=== PATIENT | female | born 1975 | race Caucasian/White ===

== ENCOUNTER 2017-06-17 10:49 | Emergency (ER) | payer MEDICAID, SELFPAY ==
[2017-06-17 12:08] VITALS: BP 163/100; PULSE 62; RESP 20; TEMP 36.6; O2SAT 95; BMI 36.6
--- NOTE | 2017-06-17 12:35 | HMH.EDUTC ---
[facility] Disposition Clinical Impression: Blepharitis of eyelid of right eye Qualifiers: Blepharitis type: unspecified type Eyelid: unspecified eyelid Qualified Code(s): H01.003 - Unspecified blepharitis right eye, unspecified eyelid Disposition: Home, Self-Care Condition on Discharge: Good Instructions: DI for Blepharitis Additional Instructions: Not bacterial. No need for antibiotics at this time and no reason to worry about going to work Wash w/ baby shampoo Cool compress several times throughout day for 15-20 minutes Do not apply medications for risk of exposure to eye monitor. Follow up for new, worsening symptoms and/or persistent redness/itching Referrals: Odin Raza [Primary Care Provider] - (as needed for new, worsening or persistent symptoms) Time of Disposition: 12:45 Medical Decision Making Vital Signs: 06/17/17 12:08 Temperature 97.9 F Temperature Source Temporal Artery Scan Pulse Rate [Right Radial] 62 Respiratory Rate 20 Blood Pressure [Right Arm] 163/100 Blood Pressure Mean [Right Arm] 121 02 Sat by Pulse Oximetry 95 Oxygen Delivery Method Room Air - Tyshawn Inquiry Pt receiving controlled substance: No [facility] HPI - General Stated complaint: irritation right eye lid - outside Time Seen by Provider: 06/17/17 12:35 Mode of Arrival: Family Vehicle Source of Information: Patient Limitations: No Limitations Description of Symptoms (Recalled from Triage Doc. by RN): pt c/o right eye itchiness and burning. HEENT Symptoms (Recalled from RN notes): Yes (right eye itchiness and burning) Resp Symptoms (Recalled from RN notes): No Skin Symptoms (Recalled from RN notes): No MS Symptoms (Recalled from RN notes): No Functional Status (Recalled from RN notes): na - History of Present Illness Provider Complaint: c/o right eyelid irritation and itching noticed today. 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 No treatment before arrival. No actual eye pain, redness, itching just the lid . No drainage or change in vision. - Related Data Home Medications Medication Instructions Recorded Confirmed Doxepin HCl [Sinequan 25mg capsule] 25 mg PO DAILY 06/17/17 06/17/17 Insulin NPH Hum/Reg Insulin Hm 65 units SQ BID 06/17/17 06/17/17 [Novolin 70-30 100 Unit/ml Vial] Lisinopril [Lisinopril 20mg Tab] 20 mg PO DAILY 06/17/17 06/17/17 lamoTRIgine [Lamotrigine] 100 mg PO DAILY 06/17/17 06/17/17 Allergies Allergy/AdvReac Type Severity Reaction Status Date / Time fish oil [FISH OIL] Allergy Mild Verified 06/17/17 11:30 POWDER IN GLOVES Allergy Unknown I-RASH Uncoded 04/14/17 14:26 - Worker's Comp Is this a Worker's Comp case?: No [facility] History I have reviewed the patient's past medical history: Yes Medical History: Reports:: Diabetes Mellitus Type 1, Hypertension Denies:: Cancer, Diabetes Mellitus Type 2, MRSA Laterality Cases: Bilateral: Carpal Tunnel Release, Other (wisdom teeth) Other Surgeries: Yes: , Other ([facility], reconstructive ankle, multiple skin graphs) Amputation: No Fractures: Yes (ankle screws) - Social History Smoking Status: Current every day smoker Tobacco Type: cigarettes Alcohol Intake: never - Psychiatric History Expresses thoughts of harming self/others: None Suicide Plan Description: No Plan ROS Obtained: Yes Systems reviewed as appropriate & no additional complaints - Constitutional Constitutional: Denies body ache, Denies chills, Denies fatigue, Denies fever(s), Denies other (recent illness) - Eyes Eyes: Reports as per HPI, Denies dry eyes, Denies photophobia - ENT Ears, Nose, Mouth, and Throat: Denies otalgia, Denies nasal congestion, Denies nasal discharge, Denies sore throat - Integumentary/Breasts Skin/Breast: Reports as per HPI - Neurologic Neurologic: Denies dizziness, Denies headache(s) Physical Exam - General General appearance: alert, in no apparent distress - Eye Eye exam:
--- NOTE | 2017-06-17 12:40 | ED_ITS ---
[facility] [place] Disposition Clinical Impression: Blepharitis of eyelid of right eye Qualifiers: Blepharitis type: unspecified type Eyelid: unspecified eyelid Qualified Code(s) : H01.003 - Unspecified blepharitis right eye, unspecified eyelid Disposition: Home, Self-Care Condition on Discharge: Good Instructions: DI for Blepharitis Additional Instructions: Not bacterial. No need for antibiotics at this time and no reason to worry about going to work Wash w/ baby shampoo Cool compress several times throughout day for 15-20 minutes Do not apply medications for risk of exposure to eye monitor. Follow up for new, worsening symptoms and/or persistent redness/itching Referrals: Odin Raza [Primary Care Provider] - (as needed for new, worsening or persistent symptoms) Time of Disposition: 12:45 Medical Decision Making Vital Signs: 06/17/17 12:08 Temperature 97.9 F Temperature Source Temporal Artery Scan Pulse Rate [Right Radial] 62 Respiratory Rate 20 Blood Pressure [Right Arm] 163/100 Blood Pressure Mean [Right Arm] 121 02 Sat by Pulse Oximetry 95 Oxygen Delivery Method Room Air - Tyshawn Inquiry Pt receiving controlled substance: No [facility] [place] HPI - General Stated complaint: irritation right eye lid - outside Time Seen by Provider: 06/17/17 12:35 Mode of Arrival: Family Vehicle Source of Information: Patient Limitations: No Limitations Description of Symptoms (Recalled from Triage Doc. by RN): pt c/o right eye itchiness and burning. HEENT Symptoms (Recalled from RN notes): Yes (right eye itchiness and burning) Resp Symptoms (Recalled from RN notes): No Skin Symptoms (Recalled from RN notes): No MS Symptoms (Recalled from RN notes): No Functional Status (Recalled from RN notes): na - History of Present Illness Provider Complaint: c/o right eyelid irritation and itching noticed today. 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 No treatment before arrival. No actual eye pain, redness, itching just the lid . No drainage or change in vision. - Related Data Home Medications Medication Instructions Recorded Confirmed Doxepin HCl [Sinequan 25mg capsule] 25 mg PO DAILY 06/17/17 06/17/17 Insulin NPH Hum/Reg Insulin Hm 65 units SQ BID 06/17/17 06/17/17 [Novolin 70-30 100 Unit/ml Vial] Lisinopril [Lisinopril 20mg Tab] 20 mg PO DAILY 06/17/17 06/17/17 lamoTRIgine [Lamotrigine] 100 mg PO DAILY 06/17/17 06/17/17 Allergies Allergy/AdvReac Type Severity Reaction Status Date / Time fish oil [FISH OIL] Allergy Mild Verified 06/17/17 11:30 POWDER IN GLOVES Allergy Unknown I-RASH Uncoded 04/14/17 14:26 - Worker's Comp Is this a Worker's Comp case?: No [facility] History I have reviewed the patient's past medical history: Yes Medical History: Reports:: Diabetes Mellitus Type 1, Hypertension Denies:: Cancer, Diabetes Mellitus Type 2, MRSA Laterality Cases: Bilateral: Carpal Tunnel Release, Other (wisdom teeth) Other Surgeries: Yes: , Other ([facility], reconstructive ankle, multiple skin graphs) Amputation: No Fractures: Yes (ankle screws) - Social History Smoking Status: Current every day smoker Tobacco Type: cigarettes Alcohol Intake: never - Psychiatric History Expresses thoughts of harming self/others: None Suicide Plan Description: No Plan ROS Obtained: Yes Systems reviewed as appropr
[2017-06-17 12:48] VITALS: BP 142/95; PULSE 79; RESP 16; TEMP 36.3; O2SAT 100
== END 2017-06-17 12:58 | disposition home or self-care (01) ==
PROVIDERS: Emergency Provider Nurse Practitioner Family; Family Provider Family Medicine; PCP Family Medicine
DX: H01.003 Unspecified blepharitis right eye, unspecified eyelid (principal); I10 Essential (primary) hypertension; E10.9 Type 1 diabetes mellitus without complications; Z79.4 Long term (current) use of insulin; F17.210 Nicotine dependence, cigarettes, uncomplicated
CPT/HCPCS: 99202

== ENCOUNTER → 2017-06-25 15:13 | Outpatient (REF) | payer MEDICAID, SELFPAY ==
[2017-06-25 18:03] LABS: Basophils # 0.1 K/mm3 (0-0.2); Basophils % 0.8 % (0.1-2.0); Eosinophils # 0.3 K/mm3 (0.0-0.4); Hematocrit 47.2 % (37.0-47.0); Hemoglobin 15.4 g/dL (12.2-16.2); Lymphocytes # 2.3 K/mm3 (0.7-4.5); Lymphocytes % 26.2 K/mm3 (10-50); Mean Corpuscular HGB Conc 32.7 g/dL (31.8-35.4); Mean Corpuscular Hemoglobin 28.8 pg (27.0-31.2); Mean Corpuscular Volume 87.9 fl (81-99); Mean Platelet Volume 11.3 fl (7.4-10.4); Monocytes # 0.4 K/mm3 (0.1-1.0); Monocytes % 4.9 % (1.7-9.3); Neutrophils # 5.6 K/mm3 (1.8-7.8); Neutrophils % 64.1 % (37.0-80.0); Platelet Count 267 K/mm3 (142-424); Red Blood Count 5.37 M/mm3 (4.20-5.40); Red Cell Distribution Width 13.2 % (11.5-17.5); White Blood Count 8.7 K/mm3 (4.8-10.8)
[2017-06-25 18:27] LABS: Hemoglobin A1C 10.6 % (0.0-7.0)
[2017-06-25 19:13] LABS: Alanine Aminotransferase 18 U/L (12-78); Albumin Level 2.4 gm/dL (3.4-5.0); Albumin/Globulin Ratio 0.6 (1.1-1.8); Alkaline Phosphatase 114 U/L (46-116); Anion Gap 13.6 mEq/L (5-15); Aspartate Amino Transferase 10 U/L (15-37); Bilirubin,Total 0.2 mg/dL (0.2-1.0); Blood Urea Nitrogen 12 mg/dL (7-18); Calcium 8.4 mg/dL (8.5-10.1); Carbon Dioxide 25 mmol/L (21.0-32.0); Chloride 100 mmol/L (98-107); Chol/HDL Ratio 8.1 (1-3.5); Cholesterol 307 mg/dL (140-200); Creatinine,Serum 0.82 mg/dL (0.55-1.02); Estimated Glomerular Filt Rate 76 ml/min (>60); GFR (African American) 92 ML/MIN (>60); Globulin 3.8 gm/dl (1.3-3.2); Glucose 383 mg/dL (74-106); HDL Cholesterol 38 mg/dL (29-89); LDL Cholesterol 189 mg/dL (0-130); Potassium 4.6 mmoL/L (3.5-5.1); Sodium 134 mmol/L (136-145); T4 (Thyroxine) 8.6 ug/dl (4.7-13.3); Thyroid Stimulating Hormone 1.68 uIU/ml (0.358-3.740); Total Protein,Serum 6.2 gm/dL (6.4-8.2); Triglycerides 400 mg/dL (30-200)
[2017-06-27 18:30] LABS: Microalbumin, Urine 2341.5 ug/mL (Not Estab.); Vitamin D 25 Hydroxy 6.8 ng/mL (30.0-100.0)
== END ==
LOC: LAB 15:13
PROVIDERS: Visit Provider Physician Assistant
DX: E11.9 Type 2 diabetes mellitus without complications (principal)
CPT/HCPCS: 80053; 80061; 82043; 82652; 83036; 84436; 84443; 85025

== ENCOUNTER → 2017-07-13 14:02 | Outpatient (REF) | payer MEDICAID, SELFPAY ==
[2017-07-13 14:42] LABS: Basophils # 0.1 K/mm3 (0-0.2); Basophils % 0.8 % (0.1-2.0); Eosinophils # 0.3 K/mm3 (0.0-0.4); Hematocrit 45.5 % (37.0-47.0); Hemoglobin 14.6 g/dL (12.2-16.2); Lymphocytes # 2.3 K/mm3 (0.7-4.5); Mean Corpuscular HGB Conc 32.1 g/dL (31.8-35.4); Mean Corpuscular Hemoglobin 28.2 pg (27.0-31.2); Mean Corpuscular Volume 87.9 fl (81-99); Mean Platelet Volume 11.4 fl (7.4-10.4); Monocytes # 0.4 K/mm3 (0.1-1.0); Monocytes % 3.6 % (1.7-9.3); Neutrophils # 6.9 K/mm3 (1.8-7.8); Neutrophils % 69.7 % (37.0-80.0); Platelet Count 217 K/mm3 (142-424); Red Blood Count 5.17 M/mm3 (4.20-5.40); Red Cell Distribution Width 13.5 % (11.5-17.5); White Blood Count 9.8 K/mm3 (4.8-10.8)
[2017-07-13 15:01] LABS: Alanine Aminotransferase 15 U/L (12-78); Albumin Level 2.3 gm/dL (3.4-5.0); Albumin/Globulin Ratio 0.6 (1.1-1.8); Alkaline Phosphatase 110 U/L (46-116); Anion Gap 12.1 mEq/L (5-15); Aspartate Amino Transferase 14 U/L (15-37); Bilirubin,Total 0.1 mg/dL (0.2-1.0); Blood Urea Nitrogen 26 mg/dL (7-18); Calcium 7.9 mg/dL (8.5-10.1); Carbon Dioxide 26 mmol/L (21.0-32.0); Chloride 104 mmol/L (98-107); Chol/HDL Ratio 5.4 (1-3.5); Cholesterol 223 mg/dL (140-200); Creatinine,Serum 0.99 mg/dL (0.55-1.02); Estimated Glomerular Filt Rate 61 ml/min (>60); GFR (African American) 74 ML/MIN (>60); Globulin 3.6 gm/dl (1.3-3.2); Glucose 197 mg/dL (74-106); HDL Cholesterol 41 mg/dL (29-89); LDL Cholesterol 134 mg/dL (0-130); Potassium 4.1 mmoL/L (3.5-5.1); Sodium 138 mmol/L (136-145); T4 (Thyroxine) 8.1 ug/dl (4.7-13.3); Thyroid Stimulating Hormone 1.71 uIU/ml (0.358-3.740); Total Protein,Serum 5.9 gm/dL (6.4-8.2); Triglycerides 238 mg/dL (30-200); VLDL Cholesterol 48 mg/dL (0-40)
[2017-07-16 09:27] LABS: Folate 6.3 ng/mL (>3.0); Vitamin B12 310 pg/mL (232-1245); Vitamin D 25 Hydroxy 16.9 ng/mL (30.0-100.0)
== END ==
LOC: LAB 14:02
PROVIDERS: Visit Provider Physician Assistant
DX: E11.9 Type 2 diabetes mellitus without complications (principal); E78.5 Hyperlipidemia, unspecified; R41.3 Other amnesia; E55.9 Vitamin D deficiency, unspecified
CPT/HCPCS: 80053; 80061; 82607; 82652; 82746; 83036; 84436; 84443; 85025

== ENCOUNTER → 2017-09-22 13:16 | Outpatient (CLI) | payer MEDICAID, SELFPAY ==
[2017-09-22 13:25] LABS: Microscopic, Urine URINE MICROSCOPIC (MICROSCOPIC)
--- NOTE | 2017-09-22 13:36 | XR_ITS ---
EXAM: XR lumbar spine 2-3V HISTORY: Back pain ITS.REASON: pain ORDERING PHYSICIAN: Al Fischer MD PATIENT AGE: 42 years COMPARISON: None FINDINGS: Normal alignment. No fracture or dislocation. No lytic or blastic change. No significant degenerative change. The disc spaces are preserved. IMPRESSION: No acute finding
[2017-09-22 13:56] LABS: Bilirubin,Urine Negative (Negative); Blood, Urine 2+ (Negative); Color,Urine YELLOW (Yellow); Glucose,Urine (UA) 3+ (Negative); Ketones,Urine Negative (Negative); Leukocyte Esterase,Urine Negative (Negative); Nitrate,Urine Negative (Negative); Protein,Urine 3+ (Negative); Specific Gravity, Urine 1.025 (1.005-1.030); Urobilinogen,Urine 0.2 EU/dl (0.2)
[2017-09-22 13:57] LABS: Appearance,Urine Cloudy (Clear)
[2017-09-22 14:21] LABS: Basophils # 0.1 K/mm3 (0-0.2); Basophils % 0.8 % (0.1-2.0); Eosinophils # 0.4 K/mm3 (0.0-0.4); Eosinophils % 3.2 % (0.1-12.0); Hematocrit 44.1 % (37.0-47.0); Hemoglobin 14.3 g/dL (12.2-16.2); Lymphocytes # 3.1 K/mm3 (0.7-4.5); Lymphocytes % 25.6 K/mm3 (10-50); Mean Corpuscular HGB Conc 32.4 g/dL (31.8-35.4); Mean Corpuscular Hemoglobin 28.3 pg (27.0-31.2); Mean Corpuscular Volume 87.3 fl (81-99); Mean Platelet Volume 9.4 fl (7.4-10.4); Monocytes # 0.4 K/mm3 (0.1-1.0); Monocytes % 3.5 % (1.7-9.3); Neutrophils # 8.1 K/mm3 (1.8-7.8); Neutrophils % 66.8 % (37.0-80.0); Platelet Count 290 K/mm3 (142-424); Red Blood Count 5.05 M/mm3 (4.20-5.40); Red Cell Distribution Width 13.3 % (11.5-17.5); White Blood Count 12.1 K/mm3 (4.8-10.8)
[2017-09-22 14:27] LABS: Bacteria,Urine 2+ /lpf
[2017-09-22 15:31] LABS: Creatinine,Urine Random 122 mg/dL (20-320)
[2017-09-22 15:35] LABS: Albumin Level 3.1 gm/dL (3.4-5.0); Anion Gap 15.1 mEq/L (5-15); Blood Urea Nitrogen 16 mg/dL (7-18); Calcium 8.9 mg/dL (8.5-10.1); Carbon Dioxide 26 mmol/L (21.0-32.0); Chloride 100 mmol/L (98-107); Creatinine,Serum 1.73 mg/dL (0.55-1.02); Estimated Glomerular Filt Rate 32 ml/min (>60); GFR (African American) 39 ML/MIN (>60); Glucose 295 mg/dL (74-106); Phosphorous 3.9 mg/dL (2.4-4.9); Potassium 4.1 mmoL/L (3.5-5.1); Sodium 137 mmol/L (136-145)
[2017-09-22 16:00] LABS: Total Protein,Urine Random 637.7 mg/dL (0.0-11.9)
[2017-09-24 06:10] LABS: Parathyroid Hormone Intact 70 pg/mL (15-65)
== END ==
PROVIDERS: Visit Provider Internal Medicine Nephrology
DX: R80.9 Proteinuria, unspecified (principal)
CPT/HCPCS: 36415; 72100; 80069; 81001; 82570; 82652; 83970; 84155; 85025; 87086

== ENCOUNTER → 2017-09-28 14:04 | Outpatient (POV) | payer MEDICAID, SELFPAY | PROVIDERS: Family Provider Family Medicine; PCP Physician Assistant; Visit Provider Internal Medicine Nephrology | DX: Z00.00 Encounter for general adult medical examination without abnormal findings (principal) ==

== ENCOUNTER → 2017-10-22 13:33 | Outpatient (CLI) | payer MEDICAID, SELFPAY ==
--- NOTE | 2017-10-22 13:39 | US_ITS ---
US kidney retroperitoneal comp HISTORY: ITS.REASON: RENAL INSUFFICIENCY ORDERING PHYSICIAN: Poncho Spencer PATIENT AGE: 42 years Comparison: None FINDINGS: RIGHT KIDNEY:Unremarkable. Normal size and echogenicity. No hydronephrosis Right kidney measures 12 x 6 x 6 cm LEFT KIDNEY:Unremarkable. No hydronephrosis. Normal size and echogenicity. LEFT KIDNEY MEASURES 12 X 6 X 6 CM IMPRESSION: Unremarkable bilateral renal ultrasound
[2017-10-22 14:27] LABS: Microscopic, Urine URINE MICROSCOPIC (MICROSCOPIC)
[2017-10-22 15:03] LABS: Basophils # 0.1 K/mm3 (0-0.2); Basophils % 0.7 % (0.1-2.0); Eosinophils # 0.4 K/mm3 (0.0-0.4); Hematocrit 44.4 % (37.0-47.0); Hemoglobin 14.5 g/dL (12.2-16.2); Lymphocytes # 2.1 K/mm3 (0.7-4.5); Mean Corpuscular HGB Conc 32.6 g/dL (31.8-35.4); Mean Corpuscular Hemoglobin 28.2 pg (27.0-31.2); Mean Corpuscular Volume 86.5 fl (81-99); Mean Platelet Volume 9.7 fl (7.4-10.4); Monocytes # 0.3 K/mm3 (0.1-1.0); Monocytes % 3.1 % (1.7-9.3); Neutrophils # 6.3 K/mm3 (1.8-7.8); Neutrophils % 69.1 % (37.0-80.0); Platelet Count 245 K/mm3 (142-424); Red Blood Count 5.14 M/mm3 (4.20-5.40); Red Cell Distribution Width 13.2 % (11.5-17.5); White Blood Count 9.1 K/mm3 (4.8-10.8)
[2017-10-22 16:10] LABS: Appearance,Urine SL CLOUDY (Clear); Bilirubin,Urine Negative (Negative); Blood, Urine 2+ (Negative); Color,Urine YELLOW (Yellow); Glucose,Urine (UA) 3+ (Negative); Ketones,Urine Negative (Negative); Leukocyte Esterase,Urine Negative (Negative); Nitrate,Urine Negative (Negative); PH,Urine 5.5 (5.0-8.5); Protein,Urine 3+ (Negative); Specific Gravity, Urine 1.025 (1.005-1.030); Urobilinogen,Urine 0.2 EU/dl (0.2)
[2017-10-22 16:11] LABS: Albumin Level 2.5 gm/dL (3.4-5.0); Anion Gap 12.5 mEq/L (5-15); Blood Urea Nitrogen 13 mg/dL (7-18); Calcium 8.9 mg/dL (8.5-10.1); Carbon Dioxide 29 mmol/L (21.0-32.0); Chloride 100 mmol/L (98-107); Estimated Glomerular Filt Rate 61 ml/min (>60); GFR (African American) 73 ML/MIN (>60); Glucose 348 mg/dL (74-106); Phosphorous 4.5 mg/dL (2.4-4.9); Potassium 4.5 mmoL/L (3.5-5.1); Sodium 137 mmol/L (136-145); Uric Acid 5.6 mg/dL (2.6-7.2)
[2017-10-22 16:15] LABS: Creatinine,Urine Random 118 mg/dL (20-320)
[2017-10-22 16:19] LABS: Bacteria,Urine 2+ /lpf; Squamous Epithelial Cell,Urine 20-50 #/hpf (0-5); WBC,Urine Occasional #/hpf (0-3)
[2017-10-22 16:54] LABS: Total Protein,Urine Random 707.6 mg/dL (0.0-11.9)
== END ==
PROVIDERS: Family Provider Family Medicine; PCP Physician Assistant; Visit Provider Internal Medicine Nephrology
DX: N28.9 Disorder of kidney and ureter, unspecified (principal)
CPT/HCPCS: 36415; 76770; 80069; 81001; 82570; 84155; 84550; 85025; 87086

== ENCOUNTER → 2017-10-29 12:32 | Outpatient (POV) | payer MEDICAID, SELFPAY ==
[2017-10-31 08:21] LABS: Hep A Ab, IgM Negative (Negative); Hepatitis B Core Antibody IgM Negative (Negative); Hepatitis B Surface Antigen Negative (Negative); Immunoglobulin A, Qn 475 mg/dL (87-352); Immunoglobulin G, Qn 901 mg/dL (700-1600); Immunoglobulin M, Qn 127 mg/dL (26-217)
[2017-10-31 18:04] LABS: Complement C3 180 mg/dL (82-167); HIV Screen 4th Generation wRfx Non Reactive (Non Reactive); Hepatitis C Antibody <0.1 s/co ratio (0.0-0.9)
[2017-11-02 15:15] LABS: Albumin 2.7 g/dL (2.9-4.4); Albumin, U 82.1 % (.); Alpha-1-Globulin 0.2 g/dL (0.0-0.4); Alpha-1-Globulin, U 0.8 % (.); Alpha-2-Globulin 1.4 g/dL (0.4-1.0); Alpha-2-Globulin, U 2.5 % (.); Beta Globulin, U 8.1 % (.); Free Kappa Lt Chains 38.9 mg/L (3.3-19.4); Free Lambda Lt Chains 40.5 mg/L (5.7-26.3); Gamma Globulin 0.9 g/dL (0.4-1.8); Gamma Globulin, U 6.4 % (.); M-Spike, % Not Observed % (Not Observed); Protein, Total 6.4 g/dL (6.0-8.5)
[2017-11-03 15:21] LABS: Antinuclear Antibodies, IFA Negative (.); Protein,Total,Urine 744.8 mg/dL (Not Estab.)
== END ==
PROVIDERS: Family Provider Family Medicine; PCP Physician Assistant; Visit Provider Internal Medicine Nephrology
DX: R80.9 Proteinuria, unspecified (principal)
CPT/HCPCS: 36415; 80074; 82784; 83883; 84155; 84156; 84165; 86038; 86161; 86703; G0432

== ENCOUNTER → 2017-10-31 11:31 | Outpatient (REF) | payer MEDICAID, SELFPAY ==
[2017-10-31 13:11] LABS: Total Protein,Urine Random 234.4 mg/dL (0.0-11.9)
[2017-10-31 13:28] LABS: Total Protein 24 Hour,Urine 7032 mg/24 hr (40-90); Total Volume,Urine 3000 mL (600-1600)
== END ==
LOC: LAB 11:31
PROVIDERS: Visit Provider Internal Medicine Nephrology
DX: R80.9 Proteinuria, unspecified (principal)
CPT/HCPCS: 84155

== ENCOUNTER → 2017-12-03 13:47 | Outpatient (CLI) | payer MEDICAID, SELFPAY ==
[2017-12-03 13:51] LABS: Microscopic, Urine URINE MICROSCOPIC (MICROSCOPIC)
[2017-12-03 14:12] LABS: Appearance,Urine CLEAR (Clear); Bilirubin,Urine Negative (Negative); Blood, Urine 2+ (Negative); Color,Urine YELLOW (Yellow); Glucose,Urine (UA) 3+ (Negative); Ketones,Urine Negative (Negative); Leukocyte Esterase,Urine Negative (Negative); Nitrate,Urine Negative (Negative); PH,Urine 5.5 (5.0-8.5); Protein,Urine 3+ (Negative); Specific Gravity, Urine 1.025 (1.005-1.030); Urobilinogen,Urine 0.2 EU/dl (0.2)
[2017-12-03 14:24] LABS: Bacteria,Urine 2+ /lpf; Coarse Granular Casts,Urine Occasional #/lpf (0); Squamous Epithelial Cell,Urine TNTC #/hpf (0-5); WBC,Urine 20-50 #/hpf (0-3)
[2017-12-03 14:43] LABS: Total Protein,Urine Random 863.5 mg/dL (0.0-11.9)
[2017-12-03 18:34] LABS: Albumin Level 2.2 gm/dL (3.4-5.0); Anion Gap 12.7 mEq/L (5-15); Blood Urea Nitrogen 17 mg/dL (7-18); Calcium 8.3 mg/dL (8.5-10.1); Carbon Dioxide 27 mmol/L (21.0-32.0); Chloride 103 mmol/L (98-107); Creatinine,Serum 0.91 mg/dL (0.55-1.02); Estimated Glomerular Filt Rate 67 ml/min (>60); GFR (African American) 82 ML/MIN (>60); Glucose 370 mg/dL (74-106); Phosphorous 4.4 mg/dL (2.4-4.9); Potassium 4.7 mmoL/L (3.5-5.1); Sodium 138 mmol/L (136-145)
[2017-12-07 05:29] LABS: Microalbumin, Urine 5963.9 ug/mL (Not Estab.)
== END ==
PROVIDERS: Visit Provider Internal Medicine Nephrology
DX: R80.9 Proteinuria, unspecified (principal)
CPT/HCPCS: 36415; 80069; 81001; 82043; 82570; 84155; 87086

== ENCOUNTER → 2017-12-31 12:19 | Outpatient (POV) | payer MEDICAID, SELFPAY | PROVIDERS: Family Provider Family Medicine; PCP Physician Assistant; Visit Provider Internal Medicine Nephrology | DX: Z00.00 Encounter for general adult medical examination without abnormal findings (principal) ==

== ENCOUNTER → 2018-01-13 10:45 | Outpatient (REF) | payer MEDICAID, SELFPAY | LOC: LAB 10:45 | PROVIDERS: Visit Provider Nurse Practitioner Family | DX: R30.0 Dysuria (principal); E11.9 Type 2 diabetes mellitus without complications | CPT/HCPCS: 87086 ==

== ENCOUNTER → 2018-02-09 07:23 | Outpatient (CLI) | payer MEDICAID, SELFPAY ==
--- NOTE | 2018-02-09 07:26 | NM_ITS ---
History and Indications: Hypertension diabetes, hyperlipidemia, tobacco use and abnormal EKG Procedure: Patient received a 0.4 mg of intravenous Lexiscan, resting heart rate was 86 bpm resting blood pressure 187/102, with Lexiscan maximum heart rate achieved was 110 bpm which is less than 85% of the maximum predicted heart rate and a blood pressure was 180/95. With Lexiscan patient complained of shortness of breath Electrocardiogram: Resting electrocardiogram showed sinus rhythm nonspecific ST-T changes, with Lexiscan there is less than 1.[address] segment depression noted from the baseline EKG. The EKG portion of the Lexiscan Myoview is nondiagnostic. Cardiac stress and resting SPECT images: Cardiac stress and resting SPECT images were obtained using technetium 99 Myoview 32.8 mCi stress and 9.9 mCi at rest. Gated SPECT further analysis of segmental wall motion and calculation of the ejection fraction also done. Cardiac stress and rest SPECT images show uniform myocardial activity without segmental perfusion abnormality, computer derived ejection fraction is 57% with no regional wall motion abnormality, normal contractility. There appears to be a transient ischemic dilatation of the left ventricle seen, in the concern is for presence of balanced ischemia. Conclusion: 1. The EKG portion of the Lexiscan Myoview is nondiagnostic. 2. No scintigraphic evidence of reversible ischemia seen, there appears to be a transient ischemic dilatation of the left ventricle, raising the concern is for presence of balanced ischemia. Computer derived ejection fraction is 57% with no regional wall motion abnormality, right ventricle is normal size and contractility. 3. Abnormal Lexiscan Myoview study.
--- NOTE | 2018-02-09 07:26 | CA_ITS ---
PROCEDURE: INDICATIONS FOR THE TEST: Chest pain + COPD Heart Murmur Tobacco Smoking+ Palpitations Fatigue Syncope Edema+ Hypertension+Diabetes Mellitus+ Rheumatic Fever SOB+MCCORMICK Obesity+Hyperlipidemia+ Family History HD Additional History PATIENT INFORMATION HEIGHT:65 WEIGHT:217 GENDER: Female B/P:167/94 2-D/M-MODE INTERPRETATION: 2-D MEASUREMENTS OBSERVED VALUES IN CMS Right Ventricular Dimension (RVDd) 1.8 Interventricular Septum (Thickness)(IVsd) 1.7 Left Ventricular Internal Dimensions(LVIDd) 3.6 Left Ventricular Posterior Wall (Thickness)(LVPWd) 1.0 Aortic Root 3.6 Aortic Cusp Separation 2.2 Left Atrial Dimensions (LAD) 3.6 2D 1. Technically difficult study because of the patient's factor and poor acoustic windows 2. Left atrium is mildly enlarged, left ventricle is normal size, mild concentric left ventricular hypertrophy, visually estimated ejection fraction 50% with segmental wall motion abnormality. 3. The right atrium and right ventricle are normal size and contractility 4. The aortic valve is minimally thickened and fibrosed. 5. The mitral and tricuspid valve are structurally normal. 6. The pulmonic valve is poorly present. 7. No significant pericardial effusion noted. DOPPLER INTERROGATION: Doppler interrogation of the aortic, mitral and tricuspid valvular presence of mild mitral and tricuspid regurgitation, tricuspid regurgitation jet velocity is inadequate for calculation of the right ventricular systolic pressure, grade 1 diastolic dysfunction seen with tissue Doppler evidence of raised left atrial pressure. CONCLUSION: 1. Technically difficult study because of the patient's factor and poor acoustic windows 2. Mildly enlarged left atrium, normal left ventricular size, mild concentric left ventricular hypertrophy, visually estimated ejection fraction of 50% with no regional wall motion abnormality, grade 1 diastolic dysfunction seen with tissue Doppler evidence of raised left atrial pressure. 3. No significant pericardial effusion noted.
--- NOTE | 2018-02-09 07:59 | HMH.ITSHM ---
Current Home Medications as stated by this patient Melanie Mayo or branch customer service representative. []NOVOLOG TIZANIDINE MONTELUKAST METOPROLOL LOSARTAN LAMOTRIGINE VITAMIN D2 DOXEPIN VITAMIN D3 ATORVASTATIN
== END ==
PROVIDERS: Family Provider Family Medicine; PCP Physician Assistant; Visit Provider Internal Medicine Cardiovascular Disease
DX: R94.31 Abnormal electrocardiogram [ECG] [EKG] (principal); R06.00 Dyspnea, unspecified; E11.65 Type 2 diabetes mellitus with hyperglycemia; E78.49 Other hyperlipidemia; F17.200 Nicotine dependence, unspecified, uncomplicated; I10 Essential (primary) hypertension; M79.89 Other specified soft tissue disorders
CPT/HCPCS: 78452; 93017; 93306; A9502; J2785

== ENCOUNTER → 2018-03-01 18:15 | Outpatient (CLI) | payer MEDICAID, SELFPAY | PROVIDERS: Visit Provider Nurse Practitioner Family | DX: R30.0 Dysuria (principal) | CPT/HCPCS: 87086 ==

== ENCOUNTER → 2018-03-09 08:42 | Outpatient (CLI) | payer MEDICAID, SELFPAY | PROVIDERS: PCP Emergency Medicine; Visit Provider Emergency Medicine | DX: E11.9 Type 2 diabetes mellitus without complications (principal); Z71.3 Dietary counseling and surveillance | CPT/HCPCS: 97802 ==

== ENCOUNTER → 2018-03-10 15:59 | Outpatient (CLI) | payer MEDICAID, SELFPAY ==
[2018-03-10 23:50] LABS: Anion Gap 14.8 mEq/L (5-15); Blood Urea Nitrogen 30 mg/dL (7-18); Calcium 8.6 mg/dL (8.5-10.1); Carbon Dioxide 26 mmol/L (21.0-32.0); Chloride 103 mmol/L (98-107); Creatinine,Serum 1.33 mg/dL (0.55-1.02); Estimated Glomerular Filt Rate 44 ml/min (>60); GFR (African American) 53 ML/MIN (>60); Glucose 133 mg/dL (74-106); Potassium 4.8 mmoL/L (3.5-5.1); Sodium 139 mmol/L (136-145)
== END ==
PROVIDERS: Visit Provider Internal Medicine Cardiovascular Disease
DX: E11.9 Type 2 diabetes mellitus without complications (principal); E78.5 Hyperlipidemia, unspecified; I10 Essential (primary) hypertension; I51.9 Heart disease, unspecified; R06.00 Dyspnea, unspecified; Z72.0 Tobacco use
CPT/HCPCS: 36415; 80048

== ENCOUNTER → 2018-03-23 13:10 | Outpatient (CLI) | payer MEDICAID, SELFPAY | PROVIDERS: PCP Emergency Medicine; Visit Provider Internal Medicine Cardiovascular Disease | DX: G47.33 Obstructive sleep apnea (adult) (pediatric) (principal); R06.83 Snoring; R40.0 Somnolence; R53.83 Other fatigue | CPT/HCPCS: 95806 ==

== ENCOUNTER → 2018-04-09 11:12 | Outpatient (CLI) | payer MEDICAID, SELFPAY ==
[2018-04-09 13:24] LABS: Anion Gap 14.9 mEq/L (5-15); Blood Urea Nitrogen 25 mg/dL (7-18); Calcium 8.4 mg/dL (8.5-10.1); Carbon Dioxide 23 mmol/L (21.0-32.0); Chloride 102 mmol/L (98-107); Creatinine,Serum 1.17 mg/dL (0.55-1.02); Estimated Glomerular Filt Rate 50 ml/min (>60); GFR (African American) 61 ML/MIN (>60); Glucose 301 mg/dL (74-106); Potassium 4.9 mmoL/L (3.5-5.1); Sodium 135 mmol/L (136-145)
== END ==
PROVIDERS: PCP Emergency Medicine; Visit Provider Nurse Practitioner Family
DX: I25.10 Atherosclerotic heart disease of native coronary artery without angina pectoris (principal); I51.9 Heart disease, unspecified; M79.89 Other specified soft tissue disorders
CPT/HCPCS: 36415; 80048; 83880

== ENCOUNTER → 2018-04-13 13:33 | Outpatient (CLI) | payer MEDICAID, SELFPAY ==
[2018-04-13 13:36] LABS: Microscopic, Urine URINE MICROSCOPIC (MICROSCOPIC)
[2018-04-13 13:58] LABS: Basophils # 0.1 K/mm3 (0-0.2); Basophils % 0.6 % (0.1-2.0); Eosinophils # 0.2 K/mm3 (0.0-0.4); Hematocrit 40.5 % (37.0-47.0); Hemoglobin 13.6 g/dL (12.2-16.2); Lymphocytes # 2.3 K/mm3 (0.7-4.5); Lymphocytes % 21.3 % (10-50); Mean Corpuscular HGB Conc 33.5 g/dL (31.8-35.4); Mean Corpuscular Hemoglobin 29.1 pg (27.0-31.2); Mean Corpuscular Volume 86.9 fl (81-99); Mean Platelet Volume 9.2 fl (7.4-10.4); Monocytes # 0.4 K/mm3 (0.1-1.0); Monocytes % 3.6 % (1.7-9.3); Neutrophils # 7.9 K/mm3 (1.8-7.8); Neutrophils % 72.6 % (37.0-80.0); Platelet Count 309 K/mm3 (142-424); Red Blood Count 4.67 M/mm3 (4.20-5.40); Red Cell Distribution Width 14.2 % (11.5-17.5); White Blood Count 10.9 K/mm3 (4.8-10.8)
[2018-04-13 14:11] LABS: Appearance,Urine SL CLOUDY (Clear); Bilirubin,Urine Negative (Negative); Blood, Urine 2+ (Negative); Color,Urine YELLOW (Yellow); Glucose,Urine (UA) 3+ (Negative); Ketones,Urine Negative (Negative); Leukocyte Esterase,Urine TRACE (Negative); Nitrate,Urine Negative (Negative); PH,Urine 5.5 (5.0-8.5); Protein,Urine 3+ (Negative); Specific Gravity, Urine 1.025 (1.005-1.030); Urobilinogen,Urine 0.2 EU/dl (0.2)
[2018-04-13 14:34] LABS: Creatinine,Urine Random 128 mg/dL (20-320)
[2018-04-13 14:38] LABS: Total Protein,Urine Random 1204.1 mg/dL (0.0-11.9)
[2018-04-13 15:41] LABS: Bacteria,Urine 2+ /lpf; Hyaline Casts,Urine Occasional #/lpf (0)
[2018-04-13 15:48] LABS: Albumin Level 2.5 gm/dL (3.4-5.0); Anion Gap 13.8 mEq/L (5-15); Blood Urea Nitrogen 24 mg/dL (7-18); Calcium 8.2 mg/dL (8.5-10.1); Carbon Dioxide 25 mmol/L (21.0-32.0); Chloride 100 mmol/L (98-107); Creatinine,Serum 1.27 mg/dL (0.55-1.02); Estimated Glomerular Filt Rate 46 ml/min (>60); GFR (African American) 55 ML/MIN (>60); Glucose 289 mg/dL (74-106); Phosphorous 3.7 mg/dL (2.4-4.9); Potassium 4.8 mmoL/L (3.5-5.1); Sodium 134 mmol/L (136-145)
[2018-04-14 14:18] LABS: Vitamin D 25 Hydroxy 11.1 ng/mL (30.0-100.0)
== END ==
PROVIDERS: Visit Provider Internal Medicine Nephrology
DX: R80.9 Proteinuria, unspecified (principal)
CPT/HCPCS: 36415; 80069; 81001; 82570; 82652; 84155; 85025; 87086

== ENCOUNTER → 2018-04-21 20:20 | Outpatient (CLI) | payer MEDICAID, SELFPAY | PROVIDERS: PCP Emergency Medicine; Visit Provider Internal Medicine Cardiovascular Disease | DX: G47.10 Hypersomnia, unspecified (principal); I10 Essential (primary) hypertension; R06.83 Snoring; R51 Headache | CPT/HCPCS: 95810 ==

== ENCOUNTER → 2018-05-14 10:54 | Outpatient (CLI) | payer MEDICAID, SELFPAY ==
[2018-05-14 10:58] LABS: Microscopic, Urine URINE MICROSCOPIC (MICROSCOPIC)
[2018-05-14 11:27] LABS: Appearance,Urine SL CLOUDY (Clear); Bilirubin,Urine Negative (Negative); Blood, Urine Negative (Negative); Color,Urine YELLOW (Yellow); Glucose,Urine (UA) Negative (Negative); Ketones,Urine Negative (Negative); Leukocyte Esterase,Urine 2+ (Negative); Nitrate,Urine Negative (Negative); Protein,Urine 2+ (Negative); Specific Gravity, Urine >= 1.030 (1.005-1.030); Urobilinogen,Urine 0.2 EU/dl (0.2)
[2018-05-14 11:47] LABS: Creatinine,Urine Random 112 mg/dL (20-320); Total Protein,Urine Random 192.6 mg/dL (0.0-11.9)
[2018-05-14 11:57] LABS: Bacteria,Urine 2+ /lpf; Mucus,Urine Trace /lpf; RBC,Urine Occasional #/hpf (0-3)
[2018-05-14 12:19] LABS: Basophils # 0.1 K/mm3 (0-0.2); Basophils % 0.6 % (0.1-2.0); Eosinophils # 0.4 K/mm3 (0.0-0.4); Eosinophils % 3.3 % (0.1-12.0); Hematocrit 36.2 % (37.0-47.0); Hemoglobin 11.6 g/dL (12.2-16.2); Lymphocytes # 3.1 K/mm3 (0.7-4.5); Lymphocytes % 26.2 % (10-50); Mean Corpuscular HGB Conc 32.1 g/dL (31.8-35.4); Mean Corpuscular Hemoglobin 28.5 pg (27.0-31.2); Mean Platelet Volume 9.8 fl (7.4-10.4); Monocytes # 0.6 K/mm3 (0.1-1.0); Neutrophils # 7.8 K/mm3 (1.8-7.8); Platelet Count 261 K/mm3 (142-424); Red Blood Count 4.07 M/mm3 (4.20-5.40); Red Cell Distribution Width 14.3 % (11.5-17.5)
[2018-05-14 15:17] LABS: Albumin Level 2.6 gm/dL (3.4-5.0); Anion Gap 14.8 mEq/L (5-15); Blood Urea Nitrogen 33 mg/dL (7-18); Calcium 9.4 mg/dL (8.5-10.1); Carbon Dioxide 25 mmol/L (21.0-32.0); Chloride 104 mmol/L (98-107); Creatinine,Serum 1.32 mg/dL (0.55-1.02); Estimated Glomerular Filt Rate 44 ml/min (>60); GFR (African American) 53 ML/MIN (>60); Glucose 146 mg/dL (74-106); Phosphorous 5.7 mg/dL (2.4-4.9); Potassium 4.8 mmoL/L (3.5-5.1); Sodium 139 mmol/L (136-145)
[2018-05-15 12:35] LABS: Vitamin D 25 Hydroxy 11.8 ng/mL (30.0-100.0)
== END ==
PROVIDERS: Visit Provider Internal Medicine Nephrology
DX: R80.9 Proteinuria, unspecified (principal)
CPT/HCPCS: 36415; 80069; 81001; 82570; 82652; 84155; 85025; 87086

== ENCOUNTER → 2018-07-01 14:37 | Outpatient (POV) | payer MEDICAID, SELFPAY | PROVIDERS: Visit Provider Internal Medicine Nephrology | DX: Z00.00 Encounter for general adult medical examination without abnormal findings (principal) ==

== ENCOUNTER → 2018-07-12 15:57 | Outpatient (CLI) | payer MEDICAID, SELFPAY ==
[2018-07-12 17:23] LABS: Anion Gap 12.5 mEq/L (5-15); Blood Urea Nitrogen 18 mg/dL (7-18); Calcium 8.2 mg/dL (8.5-10.1); Carbon Dioxide 25 mmol/L (21.0-32.0); Chloride 106 mmol/L (98-107); Creatinine,Serum 1.18 mg/dL (0.55-1.02); Estimated Glomerular Filt Rate 50 ml/min (>60); GFR (African American) 60 ML/MIN (>60); Glucose 228 mg/dL (74-106); Potassium 4.5 mmoL/L (3.5-5.1); Sodium 139 mmol/L (136-145)
== END ==
PROVIDERS: Visit Provider Internal Medicine Cardiovascular Disease
DX: I51.89 Other ill-defined heart diseases (principal)
CPT/HCPCS: 36415; 80048; 83880

== ENCOUNTER → 2018-09-21 15:26 | Outpatient (CLI) | payer MEDICAID, SELFPAY ==
[2018-09-21 16:20] LABS: Basophils # 0.1 K/mm3 (0-0.2); Basophils % 0.5 % (0.1-2.0); Eosinophils # 0.4 K/mm3 (0.0-0.4); Eosinophils % 3.5 % (0.1-12.0); Hematocrit 34.9 % (37.0-47.0); Hemoglobin 12.1 g/dL (12.2-16.2); Lymphocytes # 2.7 K/mm3 (0.7-4.5); Lymphocytes % 22.9 % (10-50); Mean Corpuscular HGB Conc 34.8 g/dL (31.8-35.4); Mean Corpuscular Hemoglobin 29.4 pg (27.0-31.2); Mean Corpuscular Volume 84.5 fl (81-99); Mean Platelet Volume 9.7 fl (7.4-10.4); Monocytes # 0.4 K/mm3 (0.1-1.0); Monocytes % 3.4 % (1.7-9.3); Neutrophils # 8.3 K/mm3 (1.8-7.8); Neutrophils % 69.7 % (37.0-80.0); Platelet Count 222 K/mm3 (142-424); Red Blood Count 4.13 M/mm3 (4.20-5.40); Red Cell Distribution Width 13.8 % (11.5-17.5); White Blood Count 11.9 K/mm3 (4.8-10.8)
[2018-09-21 17:10] LABS: Anion Gap 14.9 mEq/L (5-15); Blood Urea Nitrogen 29 mg/dL (7-18); Calcium 8.4 mg/dL (8.5-10.1); Carbon Dioxide 25 mmol/L (21.0-32.0); Chloride 105 mmol/L (98-107); Creatinine,Serum 1.28 mg/dL (0.55-1.02); Estimated Glomerular Filt Rate 45 ml/min (>60); GFR (African American) 55 ML/MIN (>60); Glucose 152 mg/dL (74-106); Potassium 4.9 mmoL/L (3.5-5.1); Sodium 140 mmol/L (136-145)
[2018-09-22 00:01] LABS: Thyroid Stimulating Hormone 1.97 uIU/ml (0.358-3.740)
[2018-09-23 14:08] LABS: Folate 6.5 ng/mL (>3.0); Vitamin B12 351 pg/mL (232-1245)
== END ==
PROVIDERS: Internal Medicine Cardiovascular Disease; Visit Provider Specialist
DX: E11.65 Type 2 diabetes mellitus with hyperglycemia (principal); E78.49 Other hyperlipidemia; I25.10 Atherosclerotic heart disease of native coronary artery without angina pectoris; J43.9 Emphysema, unspecified; R06.09 Other forms of dyspnea; Z72.0 Tobacco use; R41.3 Other amnesia; Z79.4 Long term (current) use of insulin
CPT/HCPCS: 36415; 80048; 82607; 82746; 83880; 84443; 85025

== ENCOUNTER → 2018-10-15 10:05 | Outpatient (CLI) | payer MEDICAID, SELFPAY ==
[2018-10-15 10:08] LABS: Microscopic, Urine URINE MICROSCOPIC (MICROSCOPIC)
[2018-10-15 10:19] LABS: Appearance,Urine CLEAR (Clear); Bilirubin,Urine Negative (Negative); Blood, Urine 1+ (Negative); Color,Urine YELLOW (Yellow); Glucose,Urine (UA) TRACE (Negative); Ketones,Urine Negative (Negative); Leukocyte Esterase,Urine Negative (Negative); Nitrate,Urine Negative (Negative); Protein,Urine 3+ (Negative); Specific Gravity, Urine >= 1.030 (1.005-1.030); Urobilinogen,Urine 0.2 EU/dl (0.2)
[2018-10-15 10:22] LABS: Basophils # 0.1 K/mm3 (0-0.2); Basophils % 0.7 % (0.1-2.0); Eosinophils # 0.5 K/mm3 (0.0-0.4); Eosinophils % 4.2 % (0.1-12.0); Hematocrit 35.4 % (37.0-47.0); Hemoglobin 11.1 g/dL (12.2-16.2); Lymphocytes # 2.8 K/mm3 (0.7-4.5); Lymphocytes % 24.3 % (10-50); Mean Corpuscular HGB Conc 31.2 g/dL (31.8-35.4); Mean Corpuscular Hemoglobin 26.6 pg (27.0-31.2); Mean Corpuscular Volume 85.2 fl (81-99); Mean Platelet Volume 9.5 fl (7.4-10.4); Monocytes # 0.8 K/mm3 (0.1-1.0); Monocytes % 6.5 % (1.7-9.3); Neutrophils # 7.4 K/mm3 (1.8-7.8); Neutrophils % 64.3 % (37.0-80.0); Platelet Count 266 K/mm3 (142-424); Red Blood Count 4.15 M/mm3 (4.20-5.40); Red Cell Distribution Width 14.1 % (11.5-17.5); White Blood Count 11.6 K/mm3 (4.8-10.8)
[2018-10-15 10:29] LABS: Bacteria,Urine 2+ /lpf
[2018-10-15 11:47] LABS: Albumin Level 2.2 gm/dL (3.4-5.0); Anion Gap 14.6 mEq/L (5-15); Blood Urea Nitrogen 22 mg/dL (7-18); Calcium 8.1 mg/dL (8.5-10.1); Carbon Dioxide 27 mmol/L (21.0-32.0); Chloride 107 mmol/L (98-107); Creatinine,Serum 1.49 mg/dL (0.55-1.02); Estimated Glomerular Filt Rate 38 ml/min (>60); GFR (African American) 46 ML/MIN (>60); Glucose 162 mg/dL (74-106); Phosphorous 4.7 mg/dL (2.4-4.9); Potassium 4.6 mmoL/L (3.5-5.1); Sodium 144 mmol/L (136-145)
[2018-10-15 16:26] LABS: Creatinine,Urine Random 118 mg/dL (20-320)
[2018-10-15 16:42] LABS: Total Protein,Urine Random 498.9 mg/dL (0.0-11.9)
[2018-10-17 21:41] LABS: Microalbumin, Urine 2868.6 ug/mL (Not Estab.)
== END ==
PROVIDERS: Visit Provider Internal Medicine Nephrology
DX: R80.9 Proteinuria, unspecified (principal); N18.2 Chronic kidney disease, stage 2 (mild)
CPT/HCPCS: 36415; 80069; 81001; 82043; 82570; 84155; 85025; 87086

== ENCOUNTER → 2018-11-01 13:36 | Outpatient (POV) | payer MEDICAID, SELFPAY | PROVIDERS: Visit Provider Internal Medicine Nephrology | DX: Z00.00 Encounter for general adult medical examination without abnormal findings (principal) ==

== ENCOUNTER → 2019-02-02 16:34 | Outpatient (CLI) | payer MEDICAID, SELFPAY ==
--- NOTE | 2019-02-02 16:42 | XR_ITS ---
PROCEDURE: XR KNEE LT 3V CLINICAL INDICATION: LEFT KNEE PAIN COMPARISON: No exams were available for comparison FINDINGS: No fracture or dislocation. No lytic or blastic change. There is normal mineralization. The joint spaces are well-preserved. No significant degenerative/arthritic changes. No erosive changes evident. Other findings:None. IMPRESSION: No acute findings. Dictated by: Jerry Betancourt MD 02/02/2019 17:07 Electronically signed by Jerry Betancourt MD in [place] 02/02/2019 17:07
== END ==
PROVIDERS: PCP Nurse Practitioner Family; Visit Provider Nurse Practitioner Family
DX: M25.562 Pain in left knee (principal)
CPT/HCPCS: 73562

== ENCOUNTER → 2019-03-08 14:17 | Outpatient (CLI) | payer MEDICAID, SELFPAY ==
--- NOTE | 2019-03-08 14:33 | XR_ITS ---
PROCEDURE: XR KNEE LT 4V CLINICAL INDICATION: left knee pain COMPARISON: XR KNEE LT 3V from 02/02/2019 FINDINGS: No fracture or dislocation. No lytic or blastic change. There is normal mineralization. The joint spaces are well-preserved. No significant degenerative/arthritic changes. No erosive changes evident. Other findings:None. IMPRESSION: Negative left knee Dictated by: Jerry Betancourt MD 03/08/2019 15:13 Electronically signed by Jerry Betancourt MD in [place] 03/08/2019 15:13
== END ==
PROVIDERS: PCP Emergency Medicine; Visit Provider Orthopaedic Surgery
DX: M25.562 Pain in left knee (principal)
CPT/HCPCS: 73564

== ENCOUNTER → 2019-03-14 12:57 | Outpatient (CLI) | payer MEDICAID, SELFPAY ==
[2019-03-14 13:00] LABS: Microscopic, Urine URINE MICROSCOPIC (MICROSCOPIC)
[2019-03-14 13:26] LABS: Basophils # 0.1 K/mm3 (0-0.2); Basophils % 0.6 % (0.1-2.0); Eosinophils # 0.3 K/mm3 (0.0-0.4); Eosinophils % 2.4 % (0.1-12.0); Hematocrit 36.3 % (37.0-47.0); Hemoglobin 11.9 g/dL (12.2-16.2); Lymphocytes # 2.4 K/mm3 (0.7-4.5); Lymphocytes % 20.4 % (10-50); Mean Corpuscular HGB Conc 32.8 g/dL (31.8-35.4); Mean Corpuscular Hemoglobin 29.3 pg (27.0-31.2); Mean Corpuscular Volume 89.3 fl (81-99); Mean Platelet Volume 10.3 fl (7.4-10.4); Monocytes # 0.4 K/mm3 (0.1-1.0); Monocytes % 3.7 % (1.7-9.3); Neutrophils # 8.4 K/mm3 (1.8-7.8); Neutrophils % 72.9 % (37.0-80.0); Platelet Count 241 K/mm3 (142-424); Red Blood Count 4.07 M/mm3 (4.20-5.40); Red Cell Distribution Width 15.1 % (11.5-17.5); White Blood Count 11.5 K/mm3 (4.8-10.8)
[2019-03-14 15:53] LABS: Albumin Level 2.2 gm/dL (3.4-5.0); Blood Urea Nitrogen 26 mg/dL (7-18); Carbon Dioxide 25 mmol/L (21.0-32.0); Chloride 106 mmol/L (98-107); Creatinine,Serum 1.44 mg/dL (0.55-1.02); Estimated Glomerular Filt Rate 40 ml/min (>60); GFR (African American) 48 ML/MIN (>60); Glucose 91 mg/dL (74-106); Phosphorous 3.7 mg/dL (2.4-4.9); Sodium 138 mmol/L (136-145)
[2019-03-14 21:24] LABS: Appearance,Urine CLEAR (Clear); Bilirubin,Urine Negative (Negative); Blood, Urine 2+ (Negative); Color,Urine YELLOW (Yellow); Glucose,Urine (UA) TRACE (Negative); Ketones,Urine Negative (Negative); Leukocyte Esterase,Urine Negative (Negative); Nitrate,Urine Negative (Negative); PH,Urine 5.5 (5.0-8.5); Protein,Urine 3+ (Negative); Specific Gravity, Urine 1.025 (1.005-1.030); Urobilinogen,Urine 0.2 EU/dl (0.2)
[2019-03-14 21:29] LABS: Creatinine,Urine Random 86 mg/dL (20-320); Total Protein,Urine Random 174.3 mg/dL (0.0-11.9)
[2019-03-14 21:55] LABS: Bacteria,Urine 1+ /lpf; Hyaline Casts,Urine Occasional #/lpf (0); Yeast,Urine 1+ /lpf
== END ==
PROVIDERS: Visit Provider Internal Medicine Nephrology
DX: N18.3 Chronic kidney disease, stage 3 (moderate) (principal)
CPT/HCPCS: 36415; 80069; 81001; 82570; 84155; 85025

== ENCOUNTER 2019-03-16 13:50 | Outpatient (RCR) | payer MEDICAID, SELFPAY ==
--- NOTE | 2019-03-16 14:41 | HMH.PTOPEV ---
PT Outpatient Evaluation Rehab PT Outpatient Evaluation Start: 03/16/19 14:20 Freq: Status: Active Protocol: Document 03/16/19 14:20 MANUELITO (Rec: 03/16/19 14:39 MICAHMAYA [id number]) Electronically Signed By Kevon Wakefield, PT 03/16/19 14:20 Outpatient Therapy Subjective History Subjective History Patient is a 43 year old female presenting to outpatient PT with reports of L knee pain, swelling and decreased mobility. Pt also reports L anterolateral hip pain/burning. She was referred with diagnosis of L knee DJD and meralgia paresthetica. Pt reports pain and swelling has progressively gotten worse over the past month. Comorbidities include HTN, Stage III renal disease, diabetes/neuropathy, diabetic retinopathy and hx of L ankle ORIF. Chief Complaint Pain,Stiff,Swelling,Weakness Symptom Type Ache,Burning Symptoms Relieved By Heat,Ice,Activity Prior Functional Limitations None Current Functional Limitations Housework,Standing,Squatting, Recreation Activity,Walking, Stairs,Balance,Bending/ Stooping Symptom Description Intermittent Level of pain today (0-10) 4 Pain scale - at its best (0-10) 0 Pain scale - at its worst (0-10) 7 Hip/Knee Eval Gait Observation General Gait Pattern Observation Antalgic Gait,Decrease Weight Bear (L) Assistive Device Assistive Devices None / NA Palpation Tenderness left Knee Palpation Finding Tenderness Knee Palpation Overall Comment L anteromedial tibial plateau. MMT Hip Flexion Strength Grade 4- Good- Hip Abduction Strength Grade 4- Good- Hip Adduction Strength Grade 4- Good- Hip Extension Strength Grade 3+ Fair+ Hip External Rotation Strength Grade 3+ Fair+ Hip Internal Rotation Strength Grade 3+ Fair+ Knee Extension Strength Grade 4- Good- Knee Flexion Strength Grade 4- Good- ROM right Hip ROM Reason Not Measured Within Functional Limits Knee Extension Active Range of Motion ( -3 degrees) Knee Flexion Active Range of Motion ( 118 degrees) left Hip ROM Reason Not Measured Within Functional Limits Knee Extension Active Range of Motion ( -5
== END 2019-03-16 13:55 | disposition home or self-care (01) ==
LOC: PT 13:50
PROVIDERS: Visit Provider Orthopaedic Surgery
DX: M25.562 Pain in left knee (principal); M17.12 Unilateral primary osteoarthritis, left knee; G57.12 Meralgia paresthetica, left lower limb
CPT/HCPCS: 97163

== ENCOUNTER → 2019-05-09 15:19 | Outpatient (POV) | payer MEDICAID, SELFPAY | PROVIDERS: Visit Provider Internal Medicine Nephrology | DX: Z00.00 Encounter for general adult medical examination without abnormal findings (principal) ==

== ENCOUNTER → 2019-05-31 10:28 | Outpatient (CLI) | payer MEDICAID, SELFPAY ==
[2019-05-31 10:33] LABS: Microscopic, Urine URINE MICROSCOPIC (MICROSCOPIC)
[2019-05-31 10:54] LABS: Appearance,Urine CLEAR (Clear); Bilirubin,Urine Negative (Negative); Blood, Urine 2+ (Negative); Color,Urine YELLOW (Yellow); Glucose,Urine (UA) TRACE (Negative); Ketones,Urine Negative (Negative); Leukocyte Esterase,Urine Negative (Negative); Nitrate,Urine Negative (Negative); PH,Urine 5.5 (5.0-8.5); Protein,Urine 3+ (Negative); Specific Gravity, Urine >= 1.030 (1.005-1.030); Urobilinogen,Urine 0.2 EU/dl (0.2)
[2019-05-31 10:59] LABS: Creatinine,Urine Random 146 mg/dL (20-320)
[2019-05-31 11:17] LABS: Amorphous Sediment,Urine 2+ /lpf; Bacteria,Urine 3+ /lpf
[2019-05-31 11:39] LABS: Total Protein,Urine Random 937.6 mg/dL (0.0-11.9)
[2019-05-31 12:44] LABS: Basophils # 0.1 K/mm3 (0-0.2); Basophils % 0.5 % (0.1-2.0); Eosinophils # 0.4 K/mm3 (0.0-0.4); Eosinophils % 3.8 % (0.1-12.0); Hematocrit 40.1 % (37.0-47.0); Hemoglobin 12.6 g/dL (12.2-16.2); Lymphocytes # 1.9 K/mm3 (0.7-4.5); Lymphocytes % 19.3 % (10-50); Mean Corpuscular HGB Conc 31.3 g/dL (31.8-35.4); Mean Corpuscular Hemoglobin 27.7 pg (27.0-31.2); Mean Corpuscular Volume 88.5 fl (81-99); Monocytes # 0.5 K/mm3 (0.1-1.0); Monocytes % 4.6 % (1.7-9.3); Neutrophils # 7.2 K/mm3 (1.8-7.8); Neutrophils % 71.8 % (37.0-80.0); Platelet Count 245 K/mm3 (142-424); Red Blood Count 4.54 M/mm3 (4.20-5.40); Red Cell Distribution Width 14.2 % (11.5-17.5)
[2019-05-31 12:48] LABS: Albumin Level 2.4 gm/dL (3.4-5.0); Blood Urea Nitrogen 21 mg/dL (7-18); Carbon Dioxide 25 mmol/L (21.0-32.0); Chloride 106 mmol/L (98-107); Creatinine,Serum 1.59 mg/dL (0.55-1.02); Estimated Glomerular Filt Rate 35 ml/min (>60); GFR (African American) 42 ML/MIN (>60); Glucose 77 mg/dL (74-106); Phosphorous 5.1 mg/dL (2.4-4.9); Sodium 139 mmol/L (136-145)
== END ==
PROVIDERS: Visit Provider Internal Medicine Nephrology
DX: N18.3 Chronic kidney disease, stage 3 (moderate) (principal)
CPT/HCPCS: 36415; 80069; 81001; 82570; 84155; 85025; 87086

== ENCOUNTER → 2019-06-02 16:53 | Outpatient (POV) | payer MEDICAID, SELFPAY | PROVIDERS: Visit Provider Internal Medicine Nephrology | DX: Z00.00 Encounter for general adult medical examination without abnormal findings (principal) ==

== ENCOUNTER → 2019-06-09 17:31 | Outpatient (CLI) | payer MEDICAID, SELFPAY ==
[2019-06-09 19:05] LABS: Hemoglobin A1C 9.7 % (0.0-7.0)
== END ==
PROVIDERS: Visit Provider Nurse Practitioner Family
DX: E11.9 Type 2 diabetes mellitus without complications (principal); Z79.4 Long term (current) use of insulin
CPT/HCPCS: 83036

== ENCOUNTER → 2019-06-23 14:01 | Outpatient (CLI) | payer MEDICAID, SELFPAY ==
[2019-06-23 16:35] LABS: Anion Gap 10.2 mEq/L (5-15); Blood Urea Nitrogen 20 mg/dl (7-17); Calcium 8.8 mg/dl (8.4-10.2); Carbon Dioxide 26 mmol/L (22.0-30.0); Chloride 104 mmol/L (98-107); Estimated Glomerular Filt Rate 35 ml/min (>60); GFR (African American) 42 ML/MIN (>60); Phosphorous 4.8 mg/dl (2.5-4.5); Potassium 5.2 mmoL/L (3.5-5.1); Sodium 135 mmol/L (136-145)
[2019-06-23 17:23] LABS: Glucose 46 mg/dl (74-100)
== END ==
PROVIDERS: Visit Provider Internal Medicine Nephrology
DX: N18.3 Chronic kidney disease, stage 3 (moderate) (principal)
CPT/HCPCS: 36415; 80069

== ENCOUNTER → 2019-08-03 09:49 | Outpatient (CLI) | payer MEDICAID, SELFPAY ==
[2019-08-03 10:12] LABS: Basophils # 0.1 K/mm3 (0-0.2); Basophils % 0.9 % (0.1-2.0); Eosinophils # 0.4 K/mm3 (0.0-0.4); Hematocrit 31.2 % (37.0-47.0); Hemoglobin 10.2 g/dL (12.2-16.2); Lymphocytes # 2.2 K/mm3 (0.7-4.5); Lymphocytes % 23.8 % (10-50); Mean Corpuscular HGB Conc 32.6 g/dL (31.8-35.4); Mean Corpuscular Hemoglobin 28.1 pg (27.0-31.2); Mean Corpuscular Volume 86.2 fl (81-99); Mean Platelet Volume 9.2 fl (7.4-10.4); Monocytes # 0.4 K/mm3 (0.1-1.0); Monocytes % 4.5 % (1.7-9.3); Neutrophils # 6.2 K/mm3 (1.8-7.8); Neutrophils % 66.7 % (37.0-80.0); Platelet Count 335 K/mm3 (142-424); Red Blood Count 3.62 M/mm3 (4.20-5.40); Red Cell Distribution Width 14.3 % (11.5-17.5); White Blood Count 9.2 K/mm3 (4.8-10.8)
--- NOTE | 2019-08-03 10:16 | ECG_ITS ---
APPROVED REPORT Exam: Resting ECG HR:81 bpm ECG Measurements Heart Rate 81 AXES DC 144 P 31 QRSd 102 QRS -39 QT 370 T 13 QTc 429 <Conclusion> Normal sinus rhythm Left axis deviation,LAHB Minimal voltage criteria for LVH, may be normal variant Abnormal ECG Electronically signed by : Alex Herron, 08/03/2019 13:44:18
[2019-08-03 10:50] LABS: Chloride 102 mmol/L (98-107); Sodium 130 mmol/L (136-145)
[2019-08-03 10:53] LABS: Anion Gap 9.2 mEq/L (5-15); Blood Urea Nitrogen 33 mg/dl (7-17); Calcium 8.7 mg/dl (8.4-10.2); Carbon Dioxide 25 mmol/L (22.0-30.0); Estimated Glomerular Filt Rate 35 ml/min (>60); GFR (African American) 42 ML/MIN (>60)
[2019-08-03 10:55] LABS: Potassium 6.2 mmoL/L (3.5-5.1)
[2019-08-03 10:56] LABS: Glucose 448 mg/dl (74-100)
[2019-08-03 12:18] LABS: HCG Qualitative, Serum Negative (Negative)
== END ==
PROVIDERS: Visit Provider Surgery
DX: L73.2 Hidradenitis suppurativa (principal)
CPT/HCPCS: 36415; 80048; 84703; 85025; 93005

== ENCOUNTER 2019-08-04 05:53 | Day surgery (SDC) | payer MEDICAID, SELFPAY ==
[2019-08-03 11:51] VITALS: BMI 38.2
[2019-08-04] VITALS (15 sets, daily range): BP systolic 124–223; BP diastolic 82–127; PULSE 76–87; RESP 16–18; TEMP 36.1–36.7; O2SAT 86–98
[2019-08-04 06:40] LABS: POC Glucose,Bedside 118 (70-110)
[2019-08-04 06:45] LABS: Chloride 105 mmol/L (98-107)
[2019-08-04 06:46] LABS: Sodium 134 mmol/L (136-145)
[2019-08-04 06:48] LABS: Blood Urea Nitrogen 30 mg/dl (7-17); Creatinine Clearance Estimated 73 mL/min (50-200); Estimated Glomerular Filt Rate 35 ml/min (>60); GFR (African American) 42 ML/MIN (>60)
[2019-08-04 06:49] LABS: Carbon Dioxide 27 mmol/L (22.0-30.0); Glucose 124 mg/dl (74-100)
--- NOTE | 2019-08-04 07:57 | P.OP_ITS ---
Date of procedure: 08/04/19 Pre-op Diagnosis:: Left lower abdominal hidradenitis with abscess Post-op Diagnosis:: Same Procedure performed:: Incision and drainage/debridement of necrotic/abscess left lower abdominal wall hidradenitis Surgeon:: Matias Perez MD DRAWING PRESS OPERATOR:: Rafy Holland Anesthesia: GETA Estimated blood loss (mL): 15 Operative findings:: Necrotic tissue debrided Operative note:: After informed consent was obtained the patient was taken to the operating room and placed in the supine position. General anesthesia was induced and her lower abdomen was prepped and draped in a sterile fashion. After infiltration with local anesthetic electrocautery was utilized to remove the margin of the wound along with the central necrotic tissue. An underlying cavity was carefully evacuated of all contents. No significant pocket of purulence was encountered. Electrocautery was then utilized to achieve hemostasis and the wound was packed open with moistened Kerlix. The patient's anesthetic agents were reversed and she was extubated prior to transfer to recovery. Condition: stable Disposition: PACU Specimens:: None Complications:: No immediate
--- NOTE | 2019-08-04 08:14 | P.PN_ITS ---
[facility] Anesthesia Checklist - Patient Identification Patient Identification: Arm Band - Structural Data Admitted From: Home Planned Operative Procedure/s: I&D left abdominal wall hidratinitis Consent for Planned Operative Procedure(s) Verified: Yes Verified Documents: Surgical Consent, History and Physical - NPO Status Verified Time NPO: 00:00 - Additional verifications Anesthesia Reactions: Yes (nausea) Hx Blood Transfusions: Yes Blood Transfusion Reaction: No - Airway Assessment C-Spine Mobility Assessed: Yes (mp2) TMJ Mobility Assessed: Yes Dentition: Good Dentition - Neurological Assessment Level of Consciousness: Awake, Alert - Anesthesia Plan Anesthesia Risk discussed: Yes Anesthesia Plan: Verified ASA Class: III Anesthesia Type: General [facility] History I have reviewed the patient's past medical history: Yes Medical History: Reports:: Anxiety, Atherosclerotic Heart Disease, Depression, Diabetes Mellitus Type 2, Gastroesophageal Reflux Disease(GERD), Hyperlipidemia, Hypertension, Renal Disease, Renal Insufficiency Denies:: Cancer, Diabetes Mellitus Type 1, Internal Pacemaker, MRSA, Seizures *Have you ever received a pneumonia vaccine?: No *Have you received a flu vaccine this season?: Yes Other Medical History: Reports: Arthritis, Cataracts. Denies: Blood Transfusion Reaction Anesthesia experience/problems:: ponv Laterality Cases: Bilateral: Carpal Tunnel Release, Other Other Surgeries: Yes: Cardiac Catheterization, , Other. No: Pacemaker Amputation: No Fractures: Yes (ankle screws) - *Social History Educational Level: Completed GED/General Educational Development Smoking Status: Current every day smoker Tobacco Type: cigarettes # Packs/Day (cigarettes): 2 #Yrs smoked (if former smoker): 31 Alcohol Intake: never Substance Use Type: denies use *Occupational Status:: disabled Housing: house Household Members: spouse *Travel in the last 8 weeks: None - Psychiatric History Pschychiatric History:: Reports:: Anxiety, Depression Family Hx:: Unable to obtain
--- NOTE | 2019-08-04 08:15 | P.PN_ITS ---
[facility] Anesthesia Record Part I Intake, IV Amount: 600 Estimated blood loss (mL): 15 Urine output (mL): 0 Blood Pressure: 124/82 SaO2: 96 Pulse Rate: 80 Respiratory Rate: 16 Temperature: 97.0 F Patient is:: Drowsy, Stable Stable to PACU at:: 08:05
[2019-08-04 08:34] LABS: POC Glucose,Bedside 123 (70-110)
--- NOTE | 2019-08-04 09:25 | SUR.PHASEII ---
Fingerstick 132
[2019-08-04 11:31] LABS: POC Glucose,Bedside 132 (70-110)
--- NOTE | 2019-08-04 12:15 | HMH.ANESII ---
[facility] Anesthesia Record Part II Discharge Time: 09:33 Destination: Home PACU nurse assessment reviewed?: Yes Patient Condition:: Good Anesthesia Complications:: None Swallowing reflex intact?: Yes Cyanosis?: No Blood Pressure: 163/93 Pulse Rate: 81 Temperature: 97.7 F Mental Status: Alert & Oriented Pain level:: 0 Nausea and/or vomitting:: None Intake, IV Amount: 0
== END 2019-08-04 09:33 | disposition home or self-care (01) ==
LOC: OR 05:54
PROVIDERS: PCP Nurse Practitioner Family; Visit Provider Surgery
PROC: (CPT 11462; principal; 2019-08-04 07:30)
DX: L73.2 Hidradenitis suppurativa (principal); E11.9 Type 2 diabetes mellitus without complications; Z79.4 Long term (current) use of insulin; Z79.899 Other long term (current) drug therapy; Z88.8 Allergy status to other drugs, medicaments and biological substances; Z72.0 Tobacco use
CPT/HCPCS: 11462; 80048; 82962; 96374; J0330; J2405

== ENCOUNTER → 2019-08-05 08:30 | Outpatient (CLI) | payer MEDICAID, SELFPAY ==
--- NOTE | 2019-08-05 10:28 | PC.NURSE ---
REMOVED OUTER DRESSING FROM LEFT LOWER ABD, MOISTENED PACKING WITH NS AND REMOVED. WOUND BED RED AND MOIST WITH BLACK TISSUE NOTED AROUND UPPER EDGE FROM ELECTROCAUTERY DURING SURGERY YESTERDAY. IRRIGATED WOUND WITH NS, PACKED WITH 2 NS MOISTENED 4X4 GAUZE PADS, COVERED WITH 2 DRY 4X4 GAUZE PADS AND ABD PAD FOLDED IN HALF AND TAPED INTO PLACE. WOUND MEASURED 10 CM LENGTH X 3 CM WIDTH.
[2019-08-05 20:30] VITALS: BP 190/105; PULSE 83; RESP 19; TEMP 36.7; O2SAT 100
--- NOTE | 2019-08-05 21:32 | PC.NURSE ---
PT HAS DRESSING TO LL ABD WHICH WAS REMOVED AND PACKING WAS MOISTENED WITH NS AND REMOVED. SMALL AMT SEROSANGUINOUS DRAINAGE NOTED ON THIS PACKING.WOUND IS RED.AREA IRRIGATED WITH NS AND 2 4X4 DRESSINGS MOISTENED WITH NS REINSERTED WITH 2 DRY4X4 DRESSINGS FOLLOWED BY 1 FOLDED ABD DRESSING TO COVER. 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 PT STATED HAD TAKEN PAIN MEDICINE PRIOR TO COMING IN.
--- NOTE | 2019-08-05 21:44 | PC.NURSE ---
2030 THIS NURSE INQUIRED OF PTS ELEVATED BP AND PT STATED THAT SHE DOES HAVE A PROBLEM WITH HIGH BLOOD PRESSURE AND IS TAKING MEDICATION FOR HER BP .SHE ALSO STATED THAT SHE IS HAVING SOME PAIN TOO .STATES HAS TAKEN MEDICATION FOR PAIN PRIOR TO COMING TO HOSPITAL
== END ==
PROVIDERS: PCP Emergency Medicine; Visit Provider Surgery
DX: L73.2 Hidradenitis suppurativa (principal); Z48.00 Encounter for change or removal of nonsurgical wound dressing
CPT/HCPCS: G0463

== ENCOUNTER 2019-08-06 09:22 | Outpatient (CLI) | payer MEDICAID, SELFPAY ==
[2019-08-06 09:22] VITALS: BP 175/91; PULSE 90; RESP 19; TEMP 36.6; O2SAT 99
--- NOTE | 2019-08-06 16:37 | PC.NURSE ---
DRESSING CHANGE PERFORMED BY Zac ROE RN AND JUAN A MIRZA.
[2019-08-06 21:45] VITALS: BMI 38.2
[2019-08-06 21:47] VITALS: BP 194/102; PULSE 87; RESP 17; TEMP 36.4; O2SAT 99
[2019-08-06 21:54] VITALS: BP 194/102; PULSE 88; RESP 16; TEMP 36.5; O2SAT 99
== END 2019-08-06 22:00 | disposition home or self-care (01) ==
LOC: INF 09:23
PROVIDERS: PCP Emergency Medicine; Visit Provider Surgery
DX: L73.2 Hidradenitis suppurativa (principal); Z48.01 Encounter for change or removal of surgical wound dressing
CPT/HCPCS: G0463

== ENCOUNTER 2019-08-07 09:43 | Outpatient (CLI) | payer MEDICAID, SELFPAY ==
[2019-08-07 10:15] VITALS: BP 156/82; RESP 18; TEMP 36.6; O2SAT 95
[2019-08-07 10:16] VITALS: BP 156/82; RESP 18; TEMP 36.6; O2SAT 95
[2019-08-07 22:07] VITALS: BP 180/92; PULSE 85; RESP 18; TEMP 36.6; O2SAT 97
[2019-08-07 22:08] VITALS: BMI 37.7
[2019-08-07 22:23] VITALS: BP 154/99; PULSE 88; RESP 16; TEMP 36.4; O2SAT 99
== END 2019-08-07 22:25 | disposition home or self-care (01) ==
LOC: INF 09:44
PROVIDERS: PCP Emergency Medicine; Visit Provider Surgery
DX: L73.2 Hidradenitis suppurativa (principal); Z48.01 Encounter for change or removal of surgical wound dressing
CPT/HCPCS: G0463

== ENCOUNTER 2019-08-08 10:35 | Outpatient (CLI) | payer MEDICAID, SELFPAY ==
[2019-08-08 10:40] VITALS: TEMP 36.2
[2019-08-08 21:20] VITALS: BMI 38.2
--- NOTE | 2019-08-08 21:30 | PC.NURSE ---
Pt was assessed prior to DSG change. BP 190/93, (&% RA, R 20, T 97.8. Pt was asked if she was nervous. Pt stated she was because it hurts when DSG is done. Pt was assured that breaks can be done. Breathing exercises taught. Wet/Dry DSG completed. Kerlex, ABD pad and tape used. Pt tolerated fair.
== END 2019-08-08 21:30 | disposition home or self-care (01) ==
PROVIDERS: PCP Emergency Medicine; Visit Provider Surgery
DX: L73.2 Hidradenitis suppurativa (principal); Z48.01 Encounter for change or removal of surgical wound dressing
CPT/HCPCS: G0463

== ENCOUNTER 2019-08-09 09:49 | Outpatient (CLI) | payer MEDICAID, SELFPAY ==
[2019-08-09 09:58] VITALS: BP 170/100; PULSE 80; RESP 20; TEMP 36.1; O2SAT 100
--- NOTE | 2019-08-09 10:00 | PC.NURSE ---
1000-called 's office spoke with bj, told her that patient wants to do dressing changes it home. gave pt list of supplies and instruction on how to do dressing changes. pt states she will come back if she has any issues.
== END 2019-08-09 09:58 | disposition home or self-care (01) ==
LOC: INF 09:49
PROVIDERS: Visit Provider Surgery
DX: L73.2 Hidradenitis suppurativa (principal); Z48.01 Encounter for change or removal of surgical wound dressing
CPT/HCPCS: G0463

== ENCOUNTER → 2019-08-10 08:46 | Outpatient (CLI) | payer MEDICAID, SELFPAY | PROVIDERS: PCP Emergency Medicine; Visit Provider Surgery | DX: L73.2 Hidradenitis suppurativa (principal); Z48.01 Encounter for change or removal of surgical wound dressing | CPT/HCPCS: G0463 ==

== ENCOUNTER → 2019-08-11 20:57 | Outpatient (CLI) | payer MEDICAID, SELFPAY ==
--- NOTE | 2019-08-12 02:03 | PC.NURSE ---
Addendum entered by Christa Cotton RN 08/12/19 02:16: Pt states is having less pain of this area.Still with slight pain with dressing change. Pt temp.97.7 Original Note: 08/11/2019 at approx 2045 pt came in for dressing change of LLABD surgical site.. She had pulled her own packing out. Wound bed is pink.No drainage noted.Area was irrigated with NS. Kerlix saturated with ns applied to area with 2 folded 4x4s covering and 1 abd dressing folded in half and taped
== END ==
PROVIDERS: PCP Emergency Medicine; Visit Provider Surgery
DX: L73.2 Hidradenitis suppurativa (principal); Z48.01 Encounter for change or removal of surgical wound dressing
CPT/HCPCS: G0463

== ENCOUNTER → 2019-08-12 19:12 | Outpatient (CLI) | payer MEDICAID, SELFPAY ==
--- NOTE | 2019-08-12 23:37 | PC.NURSE ---
2000 Temp. 98.2 pt removed old dressing herself.dressing noted to have sm amt serosanguinous drainage. wound bed pink,irrigated with ns. kerlex dressing saturated with ns applied to wound then covered with 2 4x4 and abd dressing folded in half and secured.
== END ==
PROVIDERS: PCP Emergency Medicine; Visit Provider Surgery
DX: L73.2 Hidradenitis suppurativa (principal); Z48.01 Encounter for change or removal of surgical wound dressing
CPT/HCPCS: G0463

== ENCOUNTER → 2019-08-13 21:37 | Outpatient (CLI) | payer MEDICAID, SELFPAY ==
[2019-08-13 21:58] VITALS: BP 214/99; PULSE 79; RESP 20; TEMP 36.6; O2SAT 98
--- NOTE | 2019-08-13 23:37 | PC.NURSE ---
Pt educated to follow up w/ PCP about elevated BP. Pt states she has CKD stage 3 and wasn't sure what her BP usually is. This RN told pt to come to ED if any issues arise. Old drsg to groin noted to have scant amount of purulent drainage w/ small amount of serosang drainage on old packing gauze. Wound irrigated w/ NS and measured. Performed wet to dry drsg change using sterile technique. Saline soaked kerlex packing, 4x4's and abd pad covered w/ micropore tape. Pt tolerated well.
== END ==
PROVIDERS: PCP Emergency Medicine; Visit Provider Surgery
DX: L73.2 Hidradenitis suppurativa (principal); Z48.01 Encounter for change or removal of surgical wound dressing
CPT/HCPCS: G0463

== ENCOUNTER → 2019-08-14 21:41 | Outpatient (CLI) | payer MEDICAID, SELFPAY ==
--- NOTE | 2019-08-14 21:56 | PC.NURSE ---
pt vitals assesed 187/93 pulse 88, 97% on room air and a temp of 98.4 orally
--- NOTE | 2019-08-14 21:58 | PC.NURSE ---
this nurse removed old dressing. the dressing had a small amount serosanguinous drainage present. wound was pink. this nurse irrigated the wound with ns and packed the wound with NS soaked kerlex using sterile technique and then covered with 2 4x4 and abd dressing folded in half and secured.
--- NOTE | 2019-08-14 22:13 | PC.NURSE ---
vitals assessed before discharge : 175/92 97bpm pulse, 99% on room air, 98.3 temp orally
== END ==
PROVIDERS: PCP Emergency Medicine; Visit Provider Surgery
DX: L73.2 Hidradenitis suppurativa (principal); Z48.01 Encounter for change or removal of surgical wound dressing
CPT/HCPCS: G0463

== ENCOUNTER → 2019-08-23 11:40 | Outpatient (CLI) | payer MEDICAID, SELFPAY ==
[2019-08-23 11:44] LABS: Microscopic, Urine URINE MICROSCOPIC (MICROSCOPIC)
[2019-08-23 12:06] LABS: Basophils # 0.1 K/mm3 (0-0.2); Basophils % 0.9 % (0.1-2.0); Eosinophils # 0.4 K/mm3 (0.0-0.4); Eosinophils % 4.1 % (0.1-12.0); Hematocrit 35.8 % (37.0-47.0); Lymphocytes # 2.4 K/mm3 (0.7-4.5); Lymphocytes % 23.1 % (10-50); Mean Corpuscular HGB Conc 30.8 g/dL (31.8-35.4); Mean Corpuscular Hemoglobin 26.8 pg (27.0-31.2); Mean Corpuscular Volume 86.9 fl (81-99); Mean Platelet Volume 10.8 fl (7.4-10.4); Monocytes # 0.4 K/mm3 (0.1-1.0); Monocytes % 3.7 % (1.7-9.3); Neutrophils # 7.2 K/mm3 (1.8-7.8); Neutrophils % 68.2 % (37.0-80.0); Platelet Count 269 K/mm3 (142-424); Red Blood Count 4.12 M/mm3 (4.20-5.40); Red Cell Distribution Width 14.8 % (11.5-17.5); White Blood Count 10.6 K/mm3 (4.8-10.8)
[2019-08-23 12:50] LABS: Appearance,Urine CLEAR (Clear); Bilirubin,Urine Negative (Negative); Blood, Urine 2+ (Negative); Color,Urine YELLOW (Yellow); Glucose,Urine (UA) TRACE (Negative); Ketones,Urine Negative (Negative); Leukocyte Esterase,Urine Negative (Negative); Nitrate,Urine Negative (Negative); Protein,Urine 3+ (Negative); Specific Gravity, Urine >= 1.030 (1.005-1.030); Urobilinogen,Urine 0.2 EU/dl (0.2)
[2019-08-23 12:59] LABS: Bacteria,Urine 1+ /lpf
[2019-08-23 13:18] LABS: Albumin Level 2.6 g/dl (3.5-5.0); Anion Gap 9.4 mEq/L (5-15); Blood Urea Nitrogen 28 mg/dl (7-17); Calcium 8.6 mg/dl (8.4-10.2); Carbon Dioxide 24 mmol/L (22.0-30.0); Chloride 106 mmol/L (98-107); Estimated Glomerular Filt Rate 38 ml/min (>60); GFR (African American) 45 ML/MIN (>60); Glucose 87 mg/dl (74-100); Phosphorous 4.3 mg/dl (2.5-4.5); Potassium 4.4 mmoL/L (3.5-5.1); Sodium 135 mmol/L (136-145)
[2019-08-23 13:34] LABS: Creatinine,Urine Random 115 mg/dL (Not Estab.)
== END ==
PROVIDERS: Visit Provider Internal Medicine Nephrology
DX: N18.3 Chronic kidney disease, stage 3 (moderate) (principal)
CPT/HCPCS: 36415; 80069; 81001; 82570; 84155; 85025; 87086

== ENCOUNTER → 2019-11-07 13:16 | Outpatient (CLI) | payer MEDICAID, SELFPAY ==
[2019-11-07 14:32] LABS: Hemoglobin A1C 10.8 % (4.0-6.0)
[2019-11-07 15:47] LABS: Chloride 99 mmol/L (98-107); Potassium 5.7 mmoL/L (3.5-5.1); Sodium 130 mmol/L (136-145)
[2019-11-07 15:49] LABS: Alanine Aminotransferase 13 U/L (12-78); Aspartate Amino Transferase 16 U/L (14-36); Blood Urea Nitrogen 28 mg/dl (7-17); Estimated Glomerular Filt Rate 29 ml/min (>60); GFR (African American) 35 ML/MIN (>60)
[2019-11-07 15:50] LABS: Albumin Level 2.8 g/dl (3.5-5.0); Albumin/Globulin Ratio 0.9 (1.1-1.8); Alkaline Phosphatase 198 U/L (38-126); Anion Gap 13.7 mEq/L (5-15); Bilirubin,Total 0.3 mg/dl (0.2-1.3); Calcium 8.3 mg/dl (8.4-10.2); Carbon Dioxide 23 mmol/L (22.0-30.0); Chol/HDL Ratio 5.6 (1-3.5); Cholesterol 261 mg/dl (140-200); Globulin 3.1 g/dL (1.3-3.2); HDL Cholesterol 47 mg/dl (40-60); Total Protein,Serum 5.9 g/dl (6.3-8.2); Triglycerides 366 mg/dl (30-150); VLDL Cholesterol 73 mg/dL (0-40)
[2019-11-07 16:01] LABS: Direct LDL Cholesterol 160.08 mg/dL (100-129)
[2019-11-07 16:21] LABS: Thyroid Stimulating Hormone 2.26 uIU/mL (0.465-4.68)
[2019-11-07 16:44] LABS: Glucose 532 mg/dl (74-100)
== END ==
PROVIDERS: Visit Provider Nurse Practitioner Family
DX: E11.9 Type 2 diabetes mellitus without complications (principal)
CPT/HCPCS: 36415; 80053; 80061; 83036; 84443

== ENCOUNTER → 2019-11-15 17:01 | Outpatient (CLI) | payer MEDICAID, SELFPAY ==
[2019-11-15 18:09] LABS: Chloride 102 mmol/L (98-107); Sodium 130 mmol/L (136-145)
[2019-11-15 18:12] LABS: Anion Gap 15.6 mEq/L (5-15); Blood Urea Nitrogen 27 mg/dl (7-17); Carbon Dioxide 19 mmol/L (22.0-30.0); Estimated Glomerular Filt Rate 38 ml/min (>60); GFR (African American) 45 ML/MIN (>60)
[2019-11-15 18:13] LABS: Calcium 8.7 mg/dl (8.4-10.2)
[2019-11-15 18:24] LABS: Glucose 485 mg/dl (74-100); Potassium 6.6 mmoL/L (3.5-5.1)
--- NOTE | 2019-11-15 18:35 | PC.NURSE ---
CALLED PATIENT AND INFORMED HER THAT DR. ZIMMERMAN ASKED THAT I CALL HER AND HAVE HER REPORT TO THE ED BECAUSE HER POTASSIUM IS 6.6. PATIENT STATED SHE WOULD GET A RIDE AND COME TO THE ED.
== END ==
PROVIDERS: Visit Provider Nurse Practitioner Family
DX: E87.5 Hyperkalemia (principal); R73.09 Other abnormal glucose
CPT/HCPCS: 80048

== ENCOUNTER 2019-11-15 18:48 | Emergency (ER) | payer MEDICAID, SELFPAY ==
--- NOTE | 2019-11-15 18:54 | ECG_ITS ---
APPROVED REPORT Exam: Resting ECG HR:92 bpm ECG Measurements Heart Rate 92 AXES TX 142 P 57 QRSd 92 QRS -50 QT 368 T 66 QTc 455 <Conclusion> Normal sinus rhythm Incomplete right bundle branch block Left anterior fascicular block Moderate voltage criteria for LVH, may be normal variant Cannot rule out Septal infarct, age undetermined Abnormal ECG Electronically signed by : Demarcus Miranda, 11/19/2019 08:11:14
[2019-11-15 19:03] VITALS: BP 153/94; PULSE 88; RESP 16; TEMP 36.4; O2SAT 98; BMI 36.6
--- NOTE | 2019-11-15 19:12 | HMH.EDGENADL ---
ED Disposition Clinical Impression: History of hyperkalemia, Stage 3 chronic kidney disease DM2 (diabetes mellitus, type 2) Qualifiers: Diabetes mellitus correction insulin use: with intermediate card tender use Diabetes mellitus complication status: with ophthalmic complications Diabetes mellitus complication detail: with diabetic retinopathy Diabetic retinopathy severity: with unspecified retinopathy severity Diabetes mellitus macular edema: macular edema presence unspecified Laterality: bilateral Qualified Code(s): E11.319 - Type 2 diabetes mellitus with unspecified diabetic retinopathy without macular edema; 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 Your potassium this evening is appropriate. Please continue using your insulin as prescribed, as it drives potassium into cells. Take diuretics as prescribed. Avoid taking vitamins or other naturopathic medicines. Follow-up with your doctor tomorrow for repeat lab analysis. Return to the emergency department if you have any new or worsening symptoms, chest pain, palpitations, shortness of breath, other concerns. Referrals: Al Fischer MD [Primary Care Provider] - Time of Disposition: 19:45 - Critical Care Critical Care Time: No Attestation: On 11/15/19, the high probability of a clinically significant, sudden or life threatening deterioration of the following system(s) required my full and direct attention, intervention and personal management. The time I documented below is in addition to time spent performing reported procedures but includes the following listed in this critical care notation. Medical Decision Making - Medical Records Medical records reviewed: Yes: I reviewed the patient's medical records. - Tyshawn Inquiry Pt receiving controlled substance: No Vital Signs: 11/15/19 19:03 Temperature 97.6 F Temperature Source Oral Pulse Rate [Right Brachial] 88 Respiratory Rate 16 Blood Pressure [Right Arm] 153/94 H Blood Pressure Mean [Right Arm] 113 Blood Pressure Source [Right Arm] Automatic Cuff Blood Pressure Position [Right Arm] Sitting 02 Sat by Pulse Oximetry 98 Oxygen Delivery Method Room Air - Lab Data Lab Results 11/15/19 19:06: POC Glucose 197 H 11/15/19 19:10: WBC 9.5, RBC 4.06 L, Hgb 11.6 L, Hct 34.0 L, MCV 83.9, MCH 28.5, MCHC 34.0, RDW 15.7, Plt Count 205, MPV 10.1, Neut % (Auto) 63.5, Lymph % (Auto) 28.1, [place] % (Auto) 4.0, Eos % (Auto) 3.7, Baso % (Auto) 0.7, Neut # (Auto) 6.0, Lymph # (Auto) 2.7, [place] # (Auto) 0.4, Eos # (Auto) 0.4, Baso # (Auto) 0.1 11/15/19 19:10: Sodium 136, Potassium 4.9 D, Chloride 101, Carbon Dioxide 25 D, Anion Gap 14.9, BUN 28 H, Creatinine 1.60 H, Estimated Creat Clear 73, Estimated GFR 35 L, Est GFR ( Amer) 42 L, Glucose 171 H D, Calcium 8.9, Total Bilirubin 0.3, AST 24, ALT 17, Alkaline Phosphatase 183 H, Total Protein 7.1, Albumin 3.3 L, Globulin 3.8 H, Albumin/Globulin Ratio 0.9 L Result diagrams: 11/15/19 19:10 11/15/19 19:10 Orders (Tests/Meds): ED MEDICATIONS Discontinued Medications Generic Name Dose Route Start Last Admin Trade Name Freq PRN Reason Stop Dose Admin Dextrose 25 ml 11/15/19 19:19 Dextrose 50% 50ml Syringe IVP 11/15/19 19:20 ONCE ONE Calcium Gluconate 1,000 mg/ 35 mls @ 100 mls/hr 11/15/19 19:10 Sodium Chloride IV 11/15/19 19:30 ONCE ONE Insulin Human Regular 10 unit 11/15/19 19:11 Humulin R Insulin 100 Units/Ml 10ml Vial IVP 11/15/19 19:12 ONCE ONE ORDERS Category Date Time Status EKG Request [ECG Request by /Jessy] Stat Y 11/15/19 18:54 Ordered - ECG Data Tracing #1 I reviewed this ECG and interpreted as documented below: Sinus rhythm with ventricular rate of 92 bpm. Incomplete right bundle neeraj block. Left anterior fa
[2019-11-15 19:19] LABS: POC Glucose,Bedside 197 (70-110)
[2019-11-15 19:20] LABS: Basophils # 0.1 K/mm3 (0-0.2); Basophils % 0.7 % (0.1-2.0); Eosinophils # 0.4 K/mm3 (0.0-0.4); Eosinophils % 3.7 % (0.1-12.0); Hemoglobin 11.6 g/dL (12.2-16.2); Lymphocytes # 2.7 K/mm3 (0.7-4.5); Lymphocytes % 28.1 % (10-50); Mean Corpuscular Hemoglobin 28.5 pg (27.0-31.2); Mean Corpuscular Volume 83.9 fl (81-99); Mean Platelet Volume 10.1 fl (7.4-10.4); Monocytes # 0.4 K/mm3 (0.1-1.0); Neutrophils % 63.5 % (37.0-80.0); Platelet Count 205 K/mm3 (142-424); Red Blood Count 4.06 M/mm3 (4.20-5.40); Red Cell Distribution Width 15.7 % (11.5-17.5); White Blood Count 9.5 K/mm3 (4.8-10.8)
[2019-11-15 19:28] LABS: Chloride 101 mmol/L (98-107); Potassium 4.9 mmoL/L (3.5-5.1); Sodium 136 mmol/L (136-145)
[2019-11-15 19:31] LABS: Alanine Aminotransferase 17 U/L (12-78); Albumin Level 3.3 g/dl (3.5-5.0); Albumin/Globulin Ratio 0.9 (1.1-1.8); Alkaline Phosphatase 183 U/L (38-126); Anion Gap 14.9 mEq/L (5-15); Aspartate Amino Transferase 24 U/L (14-36); Bilirubin,Total 0.3 mg/dl (0.2-1.3); Blood Urea Nitrogen 28 mg/dl (7-17); Carbon Dioxide 25 mmol/L (22.0-30.0); Creatinine Clearance Estimated 73 mL/min (50-200); Estimated Glomerular Filt Rate 35 ml/min (>60); GFR (African American) 42 ML/MIN (>60); Globulin 3.8 g/dL (1.3-3.2); Total Protein,Serum 7.1 g/dl (6.3-8.2)
[2019-11-15 19:32] LABS: Calcium 8.9 mg/dl (8.4-10.2); Glucose 171 mg/dl (74-100)
--- NOTE | 2019-11-15 19:38 | PC.NURSE ---
Patient drinking two cups of water at this time to see if tolerable.
[2019-11-15 20:02] VITALS: BP 136/88; PULSE 89; RESP 19; TEMP 36.7; O2SAT 98
== END 2019-11-15 20:03 | disposition home or self-care (01) ==
PROVIDERS: Emergency Provider Emergency Medicine; PCP Emergency Medicine
DX: N18.3 Chronic kidney disease, stage 3 (moderate) (principal); E11.319 Type 2 diabetes mellitus with unspecified diabetic retinopathy without macular edema; E87.5 Hyperkalemia; Z79.4 Long term (current) use of insulin; I10 Essential (primary) hypertension; F41.8 Other specified anxiety disorders; E78.5 Hyperlipidemia, unspecified; I25.10 Atherosclerotic heart disease of native coronary artery without angina pectoris; K21.9 Gastro-esophageal reflux disease without esophagitis; Z79.899 Other long term (current) drug therapy
CPT/HCPCS: 80053; 82962; 85025; 93005; 99282

== ENCOUNTER 2019-11-16 16:29 | Emergency (ER) | payer MEDICAID, SELFPAY ==
[2019-11-16 16:32] VITALS: BP 173/102; PULSE 105; RESP 16; TEMP 36.9; O2SAT 99; BMI 37.1
--- NOTE | 2019-11-16 17:12 | HMH.EDGENADL ---
ED Disposition Clinical Impression: Nausea and vomiting Qualifiers: Vomiting type: unspecified Vomiting Intractability: non-intractable Qualified Code(s): R11.2 - Nausea with vomiting, unspecified Hypertension Qualifiers: Hypertension type: essential hypertension Qualified Code(s): I10 - Essential (primary) hypertension Disposition: Home, Self-Care Condition on Discharge: Good Instructions: DI for High Blood Pressure, DI for Nausea -- Adult, DI for Vomiting -- Adult Additional Instructions: Zofran as needed for nausea and vomiting. Follow-up with primary care doctor, call tomorrow for appointment. Return to the emergency room if intractable vomiting. Prescriptions: Ondansetron [Zofran 4mg ODT] 4 mg PO TIDP PRN #10 tab.rapdis PRN Reason: Nausea And Vomiting Transmission Status: Pending to [facility] Referrals: Al Fischer MD [Primary Care Provider] - - Critical Care Critical Care Time: No Attestation: On 11/16/19, the high probability of a clinically significant, sudden or life threatening deterioration of the following system(s) required my full and direct attention, intervention and personal management. The time I documented below is in addition to time spent performing reported procedures but includes the following listed in this critical care notation. Medical Decision Making - Tyshawn Inquiry Pt receiving controlled substance: No Vital Signs: 11/16/19 16:32 11/16/19 17:47 11/16/19 18:09 Temperature 98.5 F Temperature Source Oral Pulse Rate [Right] 105 H 91 H 98 H Respiratory Rate 16 Blood Pressure [Right Arm] 173/102 H 146/105 H 182/108 H Blood Pressure Mean [Right Arm] 125 118 132 Blood Pressure Source [Right Arm] Automatic Cuff Automatic Cuff Automatic Cuff Blood Pressure Position [Right Arm] Sitting Sitting Sitting 02 Sat by Pulse Oximetry 99 100 100 Oxygen Delivery Method Room Air Room Air Room Air - Lab Data Lab Results 11/16/19 17:01: WBC 10.6, RBC 4.02 L, Hgb 11.6 L, Hct 33.2 L, MCV 82.7, MCH 28.9, MCHC 35.0, RDW 15.9, Plt Count 245, MPV 9.9, Neut % (Auto) 74.1, Lymph % (Auto) 20.2, [place] % (Auto) 3.7, Eos % (Auto) 1.4, Baso % (Auto) 0.6, Neut # (Auto) 7.9 H, Lymph # (Auto) 2.2, [place] # (Auto) 0.4, Eos # (Auto) 0.2, Baso # (Auto) 0.1 11/16/19 17:01: Sodium 135 L, Potassium 4.8, Chloride 103, Carbon Dioxide 27, Anion Gap 9.8, BUN 28 H, Creatinine 1.90 H, Estimated Creat Clear 62, Estimated GFR 29 L, Est GFR ( Amer) 35 L, Glucose 178 H, Calcium 8.8 11/16/19 17:01: Troponin I < 0.01 Result diagrams: 11/16/19 17:01 11/16/19 17:01 Orders (Tests/Meds): ED MEDICATIONS Generic Name Dose Route Start Last Admin Trade Name Freq PRN Reason Stop Dose Admin Sodium Chloride 8 ml 11/16/19 17:18 Sodium Chloride 0.9% 10ml Vial IV 12/16/19 17:17 NEEDED PRN dilute pepcid Discontinued Medications Generic Name Dose Route Start Last Admin Trade Name Freq PRN Reason Stop Dose Admin Famotidine 20 mg 11/16/19 17:18 11/16/19 18:20 Pepcid 20mg/2ml Vial IV 11/16/19 17:19 20 mg ONCE ONE Administration Irbesartan 300 mg 11/16/19 18:23 Avapro 300mg Tablet PO 11/16/19 18:24 ONCE ONE Ondansetron HCl 4 mg 11/16/19 17:18 11/16/19 18:20 Zofran 4mg/2ml Vial IV 11/16/19 17:19 4 mg ONCE ONE Administration Sodium Chloride 1,000 ml 11/16/19 17:21 11/16/19 18:20 Sod Chlor 0.9% 1000ml Bag IV 11/16/19 17:22 1,000 ml BOLUS ONE Administration - ECG Data Tracing #1 EKG interpreted by Placido Laguna MD: Rhythm: sinus Rate: 100 [place]: Left Ectopy: none Conduction: Left anterior fascicular block ST Segment Changes: none T Wave Changes: none Q Waves: none For R wave progression LVH Prior electrocardiagrams reviewed. No change from prior tracings. Medical Decision Narrative: Patient's blood pressure is elevated. She says she took her blood pressure medicine this morning, irbesartan
[2019-11-16 17:17] LABS: Basophils # 0.1 K/mm3 (0-0.2); Basophils % 0.6 % (0.1-2.0); Eosinophils # 0.2 K/mm3 (0.0-0.4); Eosinophils % 1.4 % (0.1-12.0); Hematocrit 33.2 % (37.0-47.0); Hemoglobin 11.6 g/dL (12.2-16.2); Lymphocytes # 2.2 K/mm3 (0.7-4.5); Lymphocytes % 20.2 % (10-50); Mean Corpuscular Hemoglobin 28.9 pg (27.0-31.2); Mean Corpuscular Volume 82.7 fl (81-99); Mean Platelet Volume 9.9 fl (7.4-10.4); Monocytes # 0.4 K/mm3 (0.1-1.0); Monocytes % 3.7 % (1.7-9.3); Neutrophils # 7.9 K/mm3 (1.8-7.8); Neutrophils % 74.1 % (37.0-80.0); Platelet Count 245 K/mm3 (142-424); Red Blood Count 4.02 M/mm3 (4.20-5.40); Red Cell Distribution Width 15.9 % (11.5-17.5); White Blood Count 10.6 K/mm3 (4.8-10.8)
[2019-11-16 17:21] LABS: Chloride 103 mmol/L (98-107); Potassium 4.8 mmoL/L (3.5-5.1); Sodium 135 mmol/L (136-145)
--- NOTE | 2019-11-16 17:22 | ECG_ITS ---
APPROVED REPORT Exam: Resting ECG HR:100 bpm ECG Measurements Heart Rate 100 AXES RI 138 P 29 QRSd 90 QRS -58 QT 366 T 60 QTc 472 <Conclusion> Normal sinus rhythm Left anterior fascicular block,Incomplete RBBB Moderate voltage criteria for LVH, may be normal variant Prolonged QT Abnormal ECG Electronically signed by : Alex Herron, 11/18/2019 20:01:29
[2019-11-16 17:24] LABS: Anion Gap 9.8 mEq/L (5-15); Blood Urea Nitrogen 28 mg/dl (7-17); Calcium 8.8 mg/dl (8.4-10.2); Carbon Dioxide 27 mmol/L (22.0-30.0); Creatinine Clearance Estimated 62 mL/min (50-200); Estimated Glomerular Filt Rate 29 ml/min (>60); GFR (African American) 35 ML/MIN (>60); Glucose 178 mg/dl (74-100)
[2019-11-16 17:46] LABS: Troponin I < 0.01 ng/ml (0.00-0.034)
[2019-11-16 17:47] VITALS: BP 146/105; PULSE 91; O2SAT 100
[2019-11-16 18:09] VITALS: BP 182/108; PULSE 98; O2SAT 100
[2019-11-16 18:37] VITALS: BP 194/114; PULSE 91; O2SAT 100
[2019-11-16 19:28] VITALS: BP 194/100; PULSE 95; RESP 16; TEMP 36.8; O2SAT 98
== END 2019-11-16 19:29 | disposition home or self-care (01) ==
PROVIDERS: Emergency Provider Emergency Medicine; PCP Emergency Medicine
DX: N18.3 Chronic kidney disease, stage 3 (moderate) (principal); I10 Essential (primary) hypertension; F41.8 Other specified anxiety disorders; K21.9 Gastro-esophageal reflux disease without esophagitis; E78.5 Hyperlipidemia, unspecified; F17.210 Nicotine dependence, cigarettes, uncomplicated; Z79.899 Other long term (current) drug therapy; Z87.891 Personal history of nicotine dependence
CPT/HCPCS: 80048; 84484; 85025; 93005; 96365; 96375; 99283; J2405

== ENCOUNTER → 2019-11-23 16:53 | Outpatient (CLI) | payer MEDICAID, SELFPAY ==
[2019-11-23 17:57] LABS: Anion Gap 14.3 mEq/L (5-15); Blood Urea Nitrogen 24 mg/dl (7-17); Calcium 8.7 mg/dl (8.4-10.2); Carbon Dioxide 19 mmol/L (22.0-30.0); Chloride 108 mmol/L (98-107); Estimated Glomerular Filt Rate 35 ml/min (>60); GFR (African American) 42 ML/MIN (>60); Glucose 125 mg/dl (74-100); Potassium 5.3 mmoL/L (3.5-5.1); Sodium 136 mmol/L (136-145)
== END ==
PROVIDERS: Visit Provider Physician Assistant
DX: R73.09 Other abnormal glucose (principal)
CPT/HCPCS: 80048

== ENCOUNTER 2019-12-06 11:00 | Outpatient (RCR) | payer MEDICAID, SELFPAY ==
--- NOTE | 2019-10-25 15:30 | HMH.PTOPWND ---
Rehab Outpt Wound Evaluation Rehab OP Wound Evaluation Start: 10/25/19 14:04 Freq: Status: Active Protocol: Document 10/25/19 15:24 BARBIE (Rec: 10/25/19 15:30 PHORNE [id number]) Electronically Signed By Edi Schulte, PT 10/25/19 15:24 Subjective/History History History Pt is 44 yowf who presents with c/o L LE edema x ~ 3-4 mos, worse in the evening, and insidious onset. She reports increased tenderness in the L lower leg and intermittent increased numbness in the L lower leg. She has hx of DM-II with neuropathy and CKD stage III. Subjective Subjective Pain in the L lower leg 5/10. 2/4 tenderness to palpation. Lymphedema Eval Classification of Lymphedema Secondary Lymphedema Yes Stemmer's sign Stemmer's Sign no Stage of Lymphedema Lymphedema stages Stage I (Pitting edema, reduces w/ elevation, no fibrosis) Skin Changes Dry Skin Yes Redness Yes Other Changes Yes Pain Scale Pain Scale (0-10) 5 Affected Extremities Areas Affected by Lymphedema/Edema Left Lower Extremity Lower Extremity Measurements Left MTP Measurement (cm) 22.8 Heel Measurement (cm) 33.7 10 cm Proximal to Lateral Malleoli 33.3 Measurement (cm) 20 cm Proximal to Lateral Malleoli 43.5 Measurement (cm) 30 cm Proximal to Lateral [place] 48.7 Measurement (cm) 40 cm Proximal to Lateral [place]alleoli 51.0 Measurement (cm) 50 cm Proximal to Lateral Malleoli 0 Measurement (cm) 60 cm Proximal to Lateral [place] 0 Measurement (cm) Lower Extremity Measurement Total (cm) 233.0 Manual Lymphatic Drainage Treatment Area MLD Treatment Area Left Lower Extremity Wound Problems/Impairments Impairments Problems/Impairmments Palpation Tenderness,Impaired Walking,Increased Edema, Lymphedema Present,Subjective C/O Pain,Impaired Self Care/ Self Management Prognosis Rehab Potential Good Clinical Impression Consistent with Diagnosis Yes Short Term Goals Number of Weeks 4 Decreased Palpation Tenderness Yes: to min Decrease Subjective C/O Pain Yes: 3/10 Patient to Understand Lymphedema Yes Treatment and Exercises
== END 2019-12-06 11:05 | disposition home or self-care (01) ==
LOC: PT 11:00
PROVIDERS: PCP Nurse Practitioner Family; Visit Provider Nurse Practitioner
DX: R60.0 Localized edema (principal)
CPT/HCPCS: 97140; 97162; 97760

== ENCOUNTER 2020-01-05 14:00 | Outpatient (RCR) | payer MEDICAID, SELFPAY ==
--- NOTE | 2019-12-14 09:26 | HMH.PTOPWND ---
Rehab Outpt Wound Evaluation Rehab OP Wound Evaluation Start: 12/14/19 09:18 Freq: Status: Active Protocol: Document 12/14/19 09:21 BARBIE (Rec: 12/14/19 09:26 PHORLORE [id number]) Electronically Signed By Edi Schulte, PT 12/14/19 09:21 Subjective/History History History Pt is 44 yowf who presents with c/o L LE edema x ~ 6 mos, worse in the evening, L > R, and insidious onset. She reports increased tenderness in the L lower leg and intermittent increased numbness in the L lower leg. She has hx of DM-II with neuropathym HTN, COPD, CKD stage III. Subjective Subjective She reports no pain at rest, 2 /4 tenderness to palpation on the L lower leg. Lymphedema Eval Classification of Lymphedema Secondary Lymphedema Yes Stemmer's sign Stemmer's Sign no Stage of Lymphedema Lymphedema stages Stage I (Pitting edema, reduces w/ elevation, no fibrosis) Skin Changes Dry Skin Yes Redness Yes Wounds Yes Discoloration of Skin Yes Other Changes Yes Affected Extremities Areas Affected by Lymphedema/Edema Right Lower Extremity,Left Lower Extremity Manual Lymphatic Drainage Treatment Area MLD Treatment Area Right Lower Extremity,Left Lower Extremity Wound Problems/Impairments Impairments Problems/Impairmments Palpation Tenderness,Impaired Endurance,Impaired Gait Pattern,Impaired Walking, Increased Edema,Lymphedema Present,Subjective C/O Pain, Impaired Self Care/Self Management Prognosis Rehab Potential Good Clinical Impression Consistent with Diagnosis Yes Short Term Goals Number of Weeks 4 Decreased Palpation Tenderness Yes: to min Decrease Edema Yes Patient to Understand Lymphedema Yes Treatment and Exercises Decrease Girth Measurments by (cm) Yes: by 5 cm Intermediate Goals Number of Weeks 8 Decreased Palpation Tenderness Yes: to none Decrease Lymphedema Yes Patient to be Ind w/ HEP Yes Patient to Adhere Lymphedema Precautions Yes Decrease Girth Samantha
== END 2020-01-05 14:05 | disposition home or self-care (01) ==
LOC: PT 14:00
PROVIDERS: PCP Nurse Practitioner Family; Visit Provider Nurse Practitioner Family
DX: R60.0 Localized edema (principal)
CPT/HCPCS: 97140; 97162

== ENCOUNTER → 2020-01-23 09:17 | Outpatient (CLI) | payer MEDICAID, SELFPAY ==
[2020-01-23 09:19] LABS: Microscopic, Urine URINE MICROSCOPIC (MICROSCOPIC)
[2020-01-23 11:16] LABS: Basophils # 0.1 K/mm3 (0-0.2); Basophils % 0.8 % (0.1-2.0); Eosinophils # 0.5 K/mm3 (0.0-0.4); Eosinophils % 5.2 % (0.1-12.0); Hematocrit 34.3 % (37.0-47.0); Hemoglobin 10.5 g/dL (12.2-16.2); Lymphocytes # 1.8 K/mm3 (0.7-4.5); Lymphocytes % 18.2 % (10-50); Mean Corpuscular HGB Conc 30.5 g/dL (31.8-35.4); Mean Corpuscular Hemoglobin 27.2 pg (27.0-31.2); Monocytes # 0.5 K/mm3 (0.1-1.0); Neutrophils # 7.1 K/mm3 (1.8-7.8); Neutrophils % 70.8 % (37.0-80.0); Platelet Count 261 K/mm3 (142-424); Red Blood Count 3.85 M/mm3 (4.20-5.40); Red Cell Distribution Width 15.1 % (11.5-17.5)
[2020-01-23 11:56] LABS: Chloride 108 mmol/L (98-107)
[2020-01-23 11:57] LABS: Albumin Level 2.9 g/dl (3.5-5.0); Sodium 138 mmol/L (136-145)
[2020-01-23 11:59] LABS: Blood Urea Nitrogen 25 mg/dl (7-17); Estimated Glomerular Filt Rate 29 ml/min (>60); GFR (African American) 35 ML/MIN (>60)
[2020-01-23 12:00] LABS: Calcium 8.6 mg/dl (8.4-10.2); Carbon Dioxide 24 mmol/L (22.0-30.0); Glucose 133 mg/dl (74-100); Phosphorous 5.3 mg/dl (2.5-4.5)
[2020-01-23 13:15] LABS: Anion Gap 12.2 mEq/L (5-15)
[2020-01-23 13:16] LABS: Potassium 6.2 mmoL/L (3.5-5.1)
[2020-01-23 13:19] LABS: Appearance,Urine CLEAR (Clear); Bilirubin,Urine Negative (Negative); Blood, Urine 2+ (Negative); Color,Urine YELLOW (Yellow); Glucose,Urine (UA) TRACE (Negative); Ketones,Urine Negative (Negative); Leukocyte Esterase,Urine TRACE (Negative); Nitrate,Urine Negative (Negative); Protein,Urine 3+ (Negative); Specific Gravity, Urine 1.025 (1.005-1.030); Urobilinogen,Urine 0.2 EU/dl (0.2)
[2020-01-23 13:41] LABS: Creatinine,Urine Random 98 mg/dL (Not Estab.)
[2020-01-23 14:03] LABS: Bacteria,Urine Trace /lpf; Squamous Epithelial Cell,Urine Occasional #/hpf (0-5); WBC,Urine Occasional #/hpf (0-3)
== END ==
PROVIDERS: Visit Provider Internal Medicine Nephrology
DX: N18.3 Chronic kidney disease, stage 3 (moderate) (principal)
CPT/HCPCS: 36415; 80069; 81001; 82570; 84155; 85025

== ENCOUNTER → 2020-01-27 14:12 | Outpatient (CLI) | payer MEDICAID, SELFPAY ==
--- NOTE | 2020-01-27 14:14 | CA_ITS ---
APPROVED REPORT EXAM: Comprehensive 2D, Doppler, and color-flow Echocardiogram Credit Officer: Lisa Alonso RT(R) Ht: 5 ft 5 in Wt: 235lbs BSA: 2.12 BP: 138/88 mmHg Indications: HTN, ex smoker, DM, HTN, hyperlipidemia, obesity, GERD 2D Dimensions LVOT 1.96 cm (M/F) 1.5-2.5 M-Mode Dimensions RVDd 2.64 cm (0.9-2.6) LVDd 3.78 cm (3.5-5.7) LVDs 2.92 cm (3.5-5.7) IVSd 0.82 cm (0.6-1.1) PWd 0.96 cm (0.6-1.1) EF (Teich) 46.40% FS 22.80% EDV (Teich) 61.20 mL ESV (Teich) 32.80 mL LV Diastology E/A Ratio 1.10 Mitral Valve MV A Velocity 81.00 (40-130 cm/s) Left Ventricle Left atrium is mildly enlarged, left ventricle is normal size, mild concentric left ventricular hypertrophy, visually estimated ejection fraction 55% with no regional wall motion abnormality, grade 1 diastolic dysfunction seen without tissue Doppler evidence of raise left atrial pressure. Right Ventricle Right atrium and right ventricular normal size and contractility. Aortic Valve Aortic valve is minimally thickened and fibrosed, there is no aortic stenosis or aortic insufficiency. Mitral Valve Mitral valve is grossly normal, there is mild mitral regurgitation. Tricuspid Valve Tricuspid valve grossly normal, there is mild tricuspid regurgitation, tricuspid regurgitation jet velocity is inadequate for calculation of the right ventricular systolic pressure. Pulmonic Valve Pulmonic valve is poorly visualized. Great Vessels Aortic root is normal size. Pericardium No significant pericardial effusion noted. Conclusion 1. Mildly enlarged left atrium, normal left ventricular size, mild concentric left ventricular hypertrophy, visually estimated ejection fraction 55% with no regional wall motion abnormality, grade 1 diastolic dysfunction seen without tissue Doppler evidence of raise left atrial pressure. 2. Mild mitral and tricuspid regurgitation. 3. No significant pericardial effusion noted. Electronically signed by : Gustavo Salcedo, 01/30/2020 20:03:13
== END ==
PROVIDERS: PCP Nurse Practitioner Family; Visit Provider Urology
DX: R06.00 Dyspnea, unspecified (principal); E11.9 Type 2 diabetes mellitus without complications; E78.5 Hyperlipidemia, unspecified; I10 Essential (primary) hypertension; I25.10 Atherosclerotic heart disease of native coronary artery without angina pectoris; I51.9 Heart disease, unspecified; J44.9 Chronic obstructive pulmonary disease, unspecified; Z72.0 Tobacco use; Z79.4 Long term (current) use of insulin
CPT/HCPCS: 93306

== ENCOUNTER → 2020-02-10 10:53 | Outpatient (CLI) | payer MEDICAID, SELFPAY ==
[2020-02-10 10:58] LABS: Microscopic, Urine URINE MICROSCOPIC (MICROSCOPIC)
[2020-02-10 11:27] LABS: Basophils # 0.1 K/mm3 (0-0.2); Basophils % 0.8 % (0.1-2.0); Eosinophils # 0.4 K/mm3 (0.0-0.4); Eosinophils % 3.5 % (0.1-12.0); Hematocrit 32.9 % (37.0-47.0); Hemoglobin 10.9 g/dL (12.2-16.2); Lymphocytes # 1.7 K/mm3 (0.7-4.5); Lymphocytes % 15.3 % (10-50); Mean Corpuscular HGB Conc 33.2 g/dL (31.8-35.4); Mean Corpuscular Hemoglobin 29.3 pg (27.0-31.2); Mean Corpuscular Volume 88.4 fl (81-99); Mean Platelet Volume 9.4 fl (7.4-10.4); Monocytes # 0.4 K/mm3 (0.1-1.0); Neutrophils # 8.3 K/mm3 (1.8-7.8); Neutrophils % 76.3 % (37.0-80.0); Platelet Count 232 K/mm3 (142-424); Red Blood Count 3.73 M/mm3 (4.20-5.40); Red Cell Distribution Width 15.6 % (11.5-17.5); White Blood Count 10.8 K/mm3 (4.8-10.8)
[2020-02-10 11:37] LABS: Appearance,Urine CLEAR (Clear); Bilirubin,Urine Negative (Negative); Blood, Urine 2+ (Negative); Color,Urine YELLOW (Yellow); Glucose,Urine (UA) 3+ (Negative); Ketones,Urine Negative (Negative); Leukocyte Esterase,Urine Negative (Negative); Nitrate,Urine Negative (Negative); Protein,Urine 3+ (Negative); Specific Gravity, Urine 1.025 (1.005-1.030); Urobilinogen,Urine 0.2 EU/dl (0.2)
[2020-02-10 12:15] LABS: Creatinine,Urine Random 77 mg/dL (Not Estab.)
[2020-02-10 12:41] LABS: Total Protein,Urine Random > 600.0 mg/dL (0.0-12.0)
[2020-02-10 13:07] LABS: Chloride 108 mmol/L (98-107); Potassium 5.3 mmoL/L (3.5-5.1); Sodium 140 mmol/L (136-145)
[2020-02-10 13:08] LABS: Albumin Level 2.9 g/dl (3.5-5.0)
[2020-02-10 13:10] LABS: Anion Gap 11.3 mEq/L (5-15); Blood Urea Nitrogen 30 mg/dl (7-17); Carbon Dioxide 26 mmol/L (22.0-30.0); Estimated Glomerular Filt Rate 29 ml/min (>60); GFR (African American) 35 ML/MIN (>60)
[2020-02-10 13:11] LABS: Glucose 166 mg/dl (74-100); Phosphorous 4.7 mg/dl (2.5-4.5)
[2020-02-10 14:26] LABS: Hemoglobin A1C 8.7 % (4.0-6.0)
== END ==
PROVIDERS: Internal Medicine Nephrology; Visit Provider Nurse Practitioner Family
DX: E11.9 Type 2 diabetes mellitus without complications (principal); N18.30 Chronic kidney disease, stage 3 unspecified; Z79.4 Long term (current) use of insulin
CPT/HCPCS: 36415; 80069; 81001; 82570; 83036; 84155; 85025

== ENCOUNTER → 2020-02-23 13:32 | Outpatient (CLI) | payer MEDICAID, SELFPAY ==
[2020-02-23 14:33] LABS: Hemoglobin A1C 8.3 % (4.0-6.0)
== END ==
PROVIDERS: Visit Provider Nurse Practitioner Family
DX: E11.9 Type 2 diabetes mellitus without complications (principal); Z79.4 Long term (current) use of insulin
CPT/HCPCS: 36415; 83036

== ENCOUNTER 2020-02-23 13:40 | Outpatient (RCR) | payer MEDICAID, SELFPAY | END 2020-02-23 13:45 | disposition home or self-care (01) | LOC: OT 13:40 | PROVIDERS: PCP Nurse Practitioner Family; Visit Provider Nurse Practitioner Family | DX: M25.512 Pain in left shoulder (principal) ==

== ENCOUNTER → 2020-04-06 15:51 | Outpatient (CLI) | payer MEDICAID, SELFPAY ==
[2020-04-06 15:54] LABS: Microscopic, Urine URINE MICROSCOPIC (MICROSCOPIC)
[2020-04-06 16:38] LABS: Basophils % 0.2 % (0.1-2.0); Eosinophils % 0.1 % (0.1-12.0); Hematocrit 41.1 % (37.0-47.0); Lymphocytes # 1.8 K/mm3 (0.7-4.5); Lymphocytes % 11.6 % (10-50); Mean Corpuscular HGB Conc 31.5 g/dL (31.8-35.4); Mean Corpuscular Hemoglobin 28.3 pg (27.0-31.2); Mean Corpuscular Volume 89.7 fl (81-99); Mean Platelet Volume 11.3 fl (7.4-10.4); Monocytes # 0.5 K/mm3 (0.1-1.0); Monocytes % 3.4 % (1.7-9.3); Neutrophils # 13.1 K/mm3 (1.8-7.8); Neutrophils % 84.7 % (37.0-80.0); Platelet Count 270 K/mm3 (142-424); Red Blood Count 4.58 M/mm3 (4.20-5.40); Red Cell Distribution Width 15.2 % (11.5-17.5); White Blood Count 15.5 K/mm3 (4.8-10.8)
[2020-04-06 16:54] LABS: MANUAL DIFFERENTIAL MANUAL DIFFERENTIAL (MANUAL DIFF)
[2020-04-06 17:19] LABS: Albumin Level 3.7 g/dl (3.5-5.0); Calcium 9.3 mg/dl (8.4-10.2); Carbon Dioxide 23 mmol/L (22.0-30.0); Estimated Glomerular Filt Rate 22 ml/min (>60); GFR (African American) 26 ML/MIN (>60); Phosphorous 5.1 mg/dl (2.5-4.5)
[2020-04-06 17:32] LABS: Intact Parathyroid Hormone 143.4 pg/mL (7.5-53.5)
[2020-04-06 17:44] LABS: 25-OH Vitamin D, Total < 12.8 ng/mL (30-100)
[2020-04-06 17:56] LABS: Anion Gap 13.2 mEq/L (5-15); Blood Urea Nitrogen 51 mg/dl (7-17); Chloride 96 mmol/L (98-107); Sodium 126 mmol/L (136-145)
[2020-04-06 18:18] LABS: Potassium 6.2 mmoL/L (3.5-5.1)
[2020-04-06 18:19] LABS: Glucose 622 mg/dl (74-100)
[2020-04-06 18:43] LABS: Appearance,Urine CLEAR (Clear); Blood, Urine 2+ (Negative); Color,Urine YELLOW (Yellow); Glucose,Urine (UA) 3+ (Negative); Ketones,Urine Negative (Negative); PH,Urine 6.5 (5.0-8.5); Protein,Urine 3+ (Negative)
[2020-04-06 18:44] LABS: Bilirubin,Urine Negative (Negative); Leukocyte Esterase,Urine Negative (Negative); Nitrate,Urine Negative (Negative); Urobilinogen,Urine 0.2 EU/dl (0.2)
[2020-04-06 19:16] LABS: Creatinine,Urine Random 36 mg/dL (Not Estab.)
[2020-04-06 19:21] LABS: Lymphocytes % 6 % (10-50); Neutrophils % 94 % (42-76); Platelet Estimate Normal; RBC Morphology Normal; Total Cells Counted 100
== END ==
PROVIDERS: Visit Provider Internal Medicine Nephrology
DX: E87.5 Hyperkalemia (principal); N18.30 Chronic kidney disease, stage 3 unspecified; E55.9 Vitamin D deficiency, unspecified
CPT/HCPCS: 36415; 80069; 81001; 82306; 82570; 83970; 84155; 85007; 85025

== ENCOUNTER 2020-04-06 18:39 | Inpatient (IN) | payer MEDICAID, SELFPAY ==
[2020-04-06] VITALS (9 sets, daily range): BP systolic 170–195; BP diastolic 97–114; PULSE 73–83; RESP 16–25; TEMP 36.4–36.5; O2SAT 94–99; BMI 38.6; BMI 40.7
--- NOTE | 2020-04-06 19:06 | ECG_ITS ---
APPROVED REPORT Exam: Resting ECG HR:78 bpm ECG Measurements Heart Rate 78 AXES NM 136 P 27 QRSd 104 QRS -49 QT 376 T 69 QTc 428 Conclusion Normal sinus rhythm Incomplete right bundle branch block Left anterior fascicular block Voltage criteria for left ventricular hypertrophy Abnormal ECG Electronically signed by : Demarcus Miranda, 04/07/2020 10:32:51
--- NOTE | 2020-04-06 19:13 | HMH.EDGENADL ---
ED Disposition Clinical Impression: Renal insufficiency, Hyperkalemia Disposition: Admitted As Inpatient Condition on Discharge: Good - Critical Care Critical Care Time: No Attestation: On 04/06/20, the high probability of a clinically significant, sudden or life threatening deterioration of the following system(s) required my full and direct attention, intervention and personal management. The time I documented below is in addition to time spent performing reported procedures but includes the following listed in this critical care notation. Medical Decision Making - Medical Records Medical records reviewed: Yes: I reviewed the patient's medical records. - Tyshawn Inquiry Pt receiving controlled substance: No Vital Signs: 04/06/20 18:41 04/06/20 19:06 04/06/20 19:53 Temperature 97.7 F Temperature Source Oral Pulse Rate [Right Radial] 77 82 77 Respiratory Rate 20 16 16 Blood Pressure [Right Arm] 186/100 H 186/101 H 176/97 H Blood Pressure Mean [Right Arm] 128 129 123 Blood Pressure Source [Right Arm] Automatic Cuff Blood Pressure Position [Right Arm] Sitting Sitting 02 Sat by Pulse Oximetry 97 97 99 Oxygen Delivery Method Room Air Room Air Room Air 04/06/20 20:00 04/06/20 20:30 04/06/20 21:00 Temperature Temperature Source Pulse Rate [Right Radial] 74 83 78 Respiratory Rate 25 H 19 23 Blood Pressure [Right Arm] 180/100 H 180/100 H 195/114 H Blood Pressure Mean [Right Arm] 126 126 141 Blood Pressure Source [Right Arm] Automatic Cuff Automatic Cuff Blood Pressure Position [Right Arm] Supine Supine Supine 02 Sat by Pulse Oximetry 97 97 97 Oxygen Delivery Method Room Air Room Air Room Air - Lab Data Lab Results 04/06/20 19:00: WBC 16.8 H, RBC 4.36, Hgb 12.4, Hct 37.2, MCV 85.3, MCH 28.4, MCHC 33.3, RDW 15.2, Plt Count 263, MPV 11.0 H, Neut % (Auto) 81.3 H, Lymph % (Auto) 14.9, [place] % (Auto) 3.0, Eos % (Auto) 0.5, Baso % (Auto) 0.2, Neut # (Auto) 13.7 H, Lymph # (Auto) 2.5, [place] # (Auto) 0.5, Eos # (Auto) 0.1, Baso # (Auto) 0.0 04/06/20 19:00: Sodium 127 L, Potassium 6.0 H, Chloride 98, Carbon Dioxide 23, Anion Gap 12.0, BUN 51 H, Creatinine 2.30 H, Estimated Creat Clear 51, Estimated GFR 23 L, Est GFR ( Amer) 28 L, Glucose 502 H*, Calcium 9.1 04/06/20 19:00: Magnesium 2.3 Result diagrams: 04/06/20 19:00 04/06/20 19:00 Orders (Tests/Meds): ED MEDICATIONS Generic Name Dose Route Start Last Admin Trade Name Freq PRN Reason Stop Dose Admin Sodium Chloride 500 mls @ 999 mls/hr 04/06/20 19:45 04/06/20 19:53 Sod Chlor 0.9% 1000ml Bag IV 04/06/20 20:15 Not Given .Q31M DULCE MARIA Sodium Chloride 1,000 mls @ 999 mls/hr 04/06/20 19:45 04/06/20 19:54 Sod Chlor 0.9% 1000ml Bag IV 04/06/20 20:45 999 mls/hr .Q1H1M DULCE MARIA Administration Sodium Chloride 1,000 mls @ 125 mls/hr 04/06/20 21:15 Sod Chlor 0.9% 1000ml Bag IV 05/06/20 21:14 .Q8H DULCE MARIA Insulin Human Lispro 0 unit 04/07/20 06:00 Humalog 100 Units/Ml 3ml Vial (Ssi) SQ 05/07/20 05:59 ACHS DULCE MARIA Protocol Discontinued Medications Generic Name Dose Route Start Last Admin Trade Name Freq PRN Reason Stop Dose Admin Calcium Gluconate 1,000 mg/ 35 mls @ 100 mls/hr 04/06/20 19:32 04/06/20 19:37 Sodium Chloride IV 04/06/20 19:52 100 mls/hr ONCE ONE Administration Insulin Lispro Protam/Lispro Human 10 unit 04/06/20 21:15 Humalog Mix 75/25 3ml Flexpen SQ 04/06/20 21:16 ONCE ONE Sodium Bicarbonate 50 meq 04/06/20 19:31 04/06/20 19:37 Sodium Bicarb 8.4% 50ml Syringe (Crash Cart) IV 04/06/20 19:32 50 meq ONCE ONE Administration ORDERS Category Date Time Status Covid-19 IgG/IgM ([facility]) Stat Lab 04/06/20 19:00 Received Medical Decision Narrative: Patient presents the emergency room with generalized malaise. Vital signs stable on arrival. I did review her chart and she did have a creatinine of 2.3 earlier today with a baseline more around 1.5. Repeat creat
[2020-04-06 19:20] LABS: Basophils % 0.2 % (0.1-2.0); Eosinophils # 0.1 K/mm3 (0.0-0.4); Eosinophils % 0.5 % (0.1-12.0); Hematocrit 37.2 % (37.0-47.0); Hemoglobin 12.4 g/dL (12.2-16.2); Lymphocytes # 2.5 K/mm3 (0.7-4.5); Lymphocytes % 14.9 % (10-50); Mean Corpuscular HGB Conc 33.3 g/dL (31.8-35.4); Mean Corpuscular Hemoglobin 28.4 pg (27.0-31.2); Mean Corpuscular Volume 85.3 fl (81-99); Monocytes # 0.5 K/mm3 (0.1-1.0); Neutrophils # 13.7 K/mm3 (1.8-7.8); Neutrophils % 81.3 % (37.0-80.0); Platelet Count 263 K/mm3 (142-424); Red Blood Count 4.36 M/mm3 (4.20-5.40); Red Cell Distribution Width 15.2 % (11.5-17.5); White Blood Count 16.8 K/mm3 (4.8-10.8)
[2020-04-06 19:21] LABS: Chloride 98 mmol/L (98-107); Sodium 127 mmol/L (136-145)
[2020-04-06 19:24] LABS: Blood Urea Nitrogen 51 mg/dl (7-17); Calcium 9.1 mg/dl (8.4-10.2); Carbon Dioxide 23 mmol/L (22.0-30.0); Creatinine Clearance Estimated 51 mL/min (50-200); Estimated Glomerular Filt Rate 23 ml/min (>60); GFR (African American) 28 ML/MIN (>60)
[2020-04-06 19:27] LABS: Glucose 502 mg/dl (74-100)
[2020-04-06 19:43] LABS: Magnesium 2.3 mg/dl (1.6-2.3)
--- NOTE | 2020-04-06 20:44 | PC.NURSE ---
TOWN CLERK DR. GARCÍA FOR SECOND TIME
--- NOTE | 2020-04-06 20:57 | PC.NURSE ---
speaking with Nicolasa at this time
[2020-04-06 21:49] LABS: Coronavirus 19 IgG Antibody Negative (Negative); Coronavirus 19 IgM Antibody Negative (Negative)
--- NOTE | 2020-04-06 21:56 | PC.NURSE ---
patient up to floor via wheelchair.
[2020-04-06 23:13] LABS: POC Glucose,Bedside 440 (70-110)
--- NOTE | 2020-04-06 23:25 | PC.NURSE ---
received call from dr. ba regarding new orders. fsbs now 440, new orders carried out.
[2020-04-06 23:53] LABS: Anion Gap 10.4 mEq/L (5-15); Blood Urea Nitrogen 48 mg/dl (7-17); Calcium 8.8 mg/dl (8.4-10.2); Carbon Dioxide 25 mmol/L (22.0-30.0); Chloride 99 mmol/L (98-107); Creatinine Clearance Estimated 59 mL/min (50-200); Estimated Glomerular Filt Rate 25 ml/min (>60); GFR (African American) 31 ML/MIN (>60); Potassium 5.4 mmoL/L (3.5-5.1); Sodium 129 mmol/L (136-145)
[2020-04-06 23:55] LABS: Glucose 490 mg/dl (74-100)
[2020-04-07] VITALS (7 sets, daily range): BP systolic 138–193; BP diastolic 87–113; PULSE 72–79; RESP 16; TEMP 36.3–36.7; O2SAT 95–98; BMI 40.8
--- NOTE | 2020-04-07 00:10 | PC.NURSE ---
Primary RN notified of high BP.
--- NOTE | 2020-04-07 05:05 | PC.NURSE ---
patient has rested well throughout night. registered nurse cardiac has shown sr. has been up ambulating to restroom without incident. voiding clear yellow urine. breath sounds course throughout al sanchez.
[2020-04-07 05:42] LABS: POC Glucose,Bedside 325 (70-110)
[2020-04-07 05:42] LABS: POC Glucose,Bedside 375 (70-110)
[2020-04-07 07:05] LABS: Basophils % 0.1 % (0.1-2.0); Eosinophils % 0.1 % (0.1-12.0); Hematocrit 36.7 % (37.0-47.0); Lymphocytes # 1.5 K/mm3 (0.7-4.5); Lymphocytes % 13.1 % (10-50); Mean Corpuscular HGB Conc 32.8 g/dL (31.8-35.4); Mean Corpuscular Volume 85.4 fl (81-99); Monocytes # 0.3 K/mm3 (0.1-1.0); Monocytes % 2.7 % (1.7-9.3); Neutrophils # 9.7 K/mm3 (1.8-7.8); Platelet Count 232 K/mm3 (142-424); Red Cell Distribution Width 15.8 % (11.5-17.5); White Blood Count 11.5 K/mm3 (4.8-10.8)
[2020-04-07 07:08] LABS: Chloride 106 mmol/L (98-107); Potassium 5.6 mmoL/L (3.5-5.1); Sodium 134 mmol/L (136-145)
[2020-04-07 07:11] LABS: Alanine Aminotransferase 18 U/L (12-78); Albumin/Globulin Ratio 0.9 (1.1-1.8); Alkaline Phosphatase 160 U/L (38-126); Anion Gap 9.6 mEq/L (5-15); Aspartate Amino Transferase 20 U/L (14-36); Bilirubin,Total 0.3 mg/dl (0.2-1.3); Blood Urea Nitrogen 45 mg/dl (7-17); Calcium 8.7 mg/dl (8.4-10.2); Carbon Dioxide 24 mmol/L (22.0-30.0); Creatinine Clearance Estimated 30 mL/min (50-200); Estimated Glomerular Filt Rate 27 ml/min (>60); GFR (African American) 32 ML/MIN (>60); Globulin 3.3 g/dL (1.3-3.2); Glucose 307 mg/dl (74-100); Total Protein,Serum 6.3 g/dl (6.3-8.2)
[2020-04-07 07:12] LABS: Magnesium 2.3 mg/dl (1.6-2.3)
[2020-04-07 11:31] LABS: POC Glucose,Bedside 318 (70-110)
--- NOTE | 2020-04-07 12:01 | HMH.PHAVTE ---
[facility] VTE Monitoring - Patient Demographics Admission date: 04/07/20 Report Date: 04/07/20 Time: 12:01 Allergies/Adverse Reactions: Patient Allergies fish oil [FISH OIL] Allergy (Mild, Verified 04/03/20 11:07) POWDER IN GLOVES Allergy (Unknown, Uncoded 04/03/20 11:07) I-RASH Height: 1.65 m Weight: 111.039 kg Patient Problems: Current Active Problems (Last Updated 01/06/19 @ 14:39 by Jessie San RN) Renal insufficiency (Acute) Hyperkalemia (Acute) - VTE Risk Labs: VTE Related Lab Results Hgb 12.0 g/dL (12.2-16.2) L 04/07/20 06:49 Hct 36.7 % (37.0-47.0) L 04/07/20 06:49 Plt Count 232 K/mm3 (142-424) 04/07/20 06:49 BUN 45 mg/dl (7-17) H 04/07/20 06:49 Creatinine 2.00 mg/dl (0.52-1.04) H 04/07/20 06:49 Estimated Creat Clear 30 mL/min (50-200) 04/07/20 06:49 Was VTE Risk Assessment Performed: No VTE Score: 4 VTE Risk Level: Low Risk - Prophylaxis Types of VTE Prophylaxis: TEDS Knee High (JOHAN HOSE ORDER PLACED)
--- NOTE | 2020-04-07 14:10 | HMH.HP ---
*Admission Date: 04/07/20 *Chief complaint: hyperkalemia, diabetes, renal insufficiency *History of present illness: Patient 45-year-old female history of neuropathy currently on steroids recently initiated, diabetes, chronic kidney disease presented with generalized malaise. Patient states for the past several days has had generalized malaise. She was just started on some steroids 1 or 2 days ago for her neuropathy in her upper extremities. She denies any decreased urine output. No fever/chills, chest pain, shortness of breath, other concerning findings. She did follow-up with her rehabilitation caseworker and basic lab work was obtained earlier this morning which showed some worsening kidney function and an elevated potassium so she was redirected to the emergency department. Patient presents the emergency room with generalized malaise. Vital signs stable on arrival. I did review her chart and she did have a creatinine of 2.3 earlier today with a baseline more around 1.5. Repeat creatinine here is again right around 2.3. IV fluids initiated. Patient still producing urine without difficulty. Potassium is 6.0 with EKG findings concerning for peaking T waves so calcium and bicarb administered. Patient will be kept on a monitor throughout emergency department stay. Other findings include hyperglycemia this could be nonketotic in nature as there is no anion gap or significant acidosis noted on lab work. Patient given home dose of insulin in the emergency department and a fluid bolus of normal saline given. At this time, due to patient's hyperkalemia, acute on chronic renal insufficiency, and hyperglycemia I do believe she requires admission to the hospital I did discuss this with on-call hospitalist. On-call hospitalist agrees. Maintenance fluids initiated, sliding scale high intensity protocol AC/at bedtime also initiated. Patient ordered a diabetic diet and will be admitted to the hospital. She is amenable to this plan. She also does have leukocytosis and again the leukocytosis and hyperglycemia could be secondary to steroid use. Above is per ER notes. Patient is followed in the office per Dr. Fischer. She has a history of type 1 diabetes, diagnosed at the age of 17. She has known renal insufficiency, she relays stage III, and his been maintained on an appropriate ARB. Patient's hospital stay had been preceded by general malaise. He does not have a history of DKA. She has a flat affect but is in no acute distress this morning. She appears to be tolerating IV fluids. [facility] History Medical History: Reports:: Anxiety, Atherosclerotic Heart Disease, Chronic Obstructive Pulmonary Disease (COPD), Coronary Artery Disease, Depression, Diabetes Mellitus Type 1, Diabetes Mellitus Type 2, Gastroesophageal Reflux Disease(GERD), Hyperlipidemia, Hypertension, Renal Disease, Renal Insufficiency Denies:: Cancer, Internal Pacemaker, MRSA, Seizures *Have you ever received a pneumonia vaccine?: No *Have you received a flu vaccine this season?: Yes Other Medical History: Reports: Arthritis, Cataracts. Denies: Blood Transfusion Reaction Laterality Cases: Bilateral: Carpal Tunnel Release, Other Other Surgeries: Yes: Cardiac Catheterization, , Other. No: Pacemaker Amputation: No Fractures: Yes (ankle screws) - *Social History Last grade of school completed: GED Smoking Status: Former smoker Tobacco Type: cigarettes # Packs/Day (cigarettes): 1 #Yrs smoked (if former smoker): 31 Alcohol Intake: never Substance Use Type: denies use *Occupational Status:: employed Housing: house Household Members: spouse *Travel in the last 8 weeks: None - Psychiatric History Pschychiatric History:: Reports:: Anxiety, Depression Family Hx:: Diabetes Review of Systems - Constitutional Reports fatigue, Reports malaise, Reports weakness - Eyes Denies change in vision - ENT Denies abnormal hearing, Denies sore throat - *Cardiovascular Denies chest pain, Denies chest pa
[2020-04-07 16:14] LABS: POC Glucose,Bedside 250 (70-110)
[2020-04-07 16:14] LABS: POC Glucose,Bedside 343 (70-110)
[2020-04-07 17:25] LABS: POC Glucose,Bedside 177 (70-110)
--- NOTE | 2020-04-07 17:53 | PC.NURSE ---
Patient is sitting in recliner eating her dinner. Neurologically intact and oriented x 4. Pupils are equal. Fiber Artist are equal. GI: appetite has been really good. Eaten 100% of her meals. Blood glucoses have been elevated throughout the day and treated with insulin. No bm today. No n/v/d. : Patient has been voiding in toilet independently. Wearing a brief for incontinence. Skin is clean/dry/intact. Patient took a shower this morning independently. Patient has remained hemodynamically intact. Has begun kayexelate but has not had a bm yet. Will continue to monitor patient.
[2020-04-07 21:03] LABS: POC Glucose,Bedside 113 (70-110)
[2020-04-07 21:54] LABS: Anion Gap 12.2 mEq/L (5-15); Blood Urea Nitrogen 44 mg/dl (7-17); Calcium 8.5 mg/dl (8.4-10.2); Carbon Dioxide 24 mmol/L (22.0-30.0); Chloride 105 mmol/L (98-107); Creatinine Clearance Estimated 30 mL/min (50-200); Estimated Glomerular Filt Rate 27 ml/min (>60); GFR (African American) 32 ML/MIN (>60); Potassium 4.2 mmoL/L (3.5-5.1); Sodium 137 mmol/L (136-145)
[2020-04-07 21:56] LABS: Glucose 86 mg/dl (74-100)
[2020-04-08 00:21] LABS: POC Glucose,Bedside 82 (70-110)
[2020-04-08 03:41] VITALS: BP 121/61; PULSE 80; RESP 18; TEMP 36.5; O2SAT 96
[2020-04-08 04:50] VITALS: BMI 41.8
--- NOTE | 2020-04-08 05:28 | PC.NURSE ---
patient reports feeling sweaty this am, fsbs performed with results of 50. 2 sweetened orange juices, abdullahi crackers and peanut butter given. lab on floor for am lab draw.
[2020-04-08 05:48] LABS: Chloride 112 mmol/L (98-107); Potassium 4.4 mmoL/L (3.5-5.1); Sodium 138 mmol/L (136-145)
[2020-04-08 05:50] LABS: Alanine Aminotransferase 20 U/L (12-78); Aspartate Amino Transferase 27 U/L (14-36); Blood Urea Nitrogen 40 mg/dl (7-17); Creatinine Clearance Estimated 34 mL/min (50-200); Estimated Glomerular Filt Rate 30 ml/min (>60); GFR (African American) 37 ML/MIN (>60)
[2020-04-08 05:51] LABS: Albumin/Globulin Ratio 0.9 (1.1-1.8); Alkaline Phosphatase 131 U/L (38-126); Anion Gap 7.4 mEq/L (5-15); Bilirubin,Total 0.3 mg/dl (0.2-1.3); Calcium 7.9 mg/dl (8.4-10.2); Carbon Dioxide 23 mmol/L (22.0-30.0); Globulin 3.3 g/dL (1.3-3.2); Glucose 82 mg/dl (74-100); Total Protein,Serum 6.3 g/dl (6.3-8.2)
--- NOTE | 2020-04-08 05:52 | PC.NURSE ---
glucose now 98, diaphoresis has stopped.
[2020-04-08 08:00] VITALS: BP 140/63; PULSE 81; RESP 16; TEMP 36.4; O2SAT 99
[2020-04-08 08:48] LABS: POC Glucose,Bedside 221 (70-110)
--- NOTE | 2020-04-08 10:09 | PC.NURSE ---
FSBG was 166. 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 Patient was given scheduled tid 55units, however, sliding scale was held.
[2020-04-08 10:16] LABS: POC Glucose,Bedside 50 (70-110)
[2020-04-08 10:16] LABS: POC Glucose,Bedside 166 (70-110)
[2020-04-08 10:16] LABS: POC Glucose,Bedside 98 (70-110)
[2020-04-08 12:00] VITALS: BP 144/78; PULSE 79; RESP 16; TEMP 36.7; O2SAT 98
[2020-04-08 12:25] LABS: POC Glucose,Bedside 75 (70-110)
--- NOTE | 2020-04-08 15:31 | HMH.DCSUM ---
General - General Admission date:: 04/06/20 Discharge date: 04/08/20 HPI HPI: Patient 45-year-old female history of neuropathy currently on steroids recently initiated, diabetes, chronic kidney disease presented with generalized malaise. Patient states for the past several days has had generalized malaise. She was just started on some steroids 1 or 2 days ago for her neuropathy in her upper extremities. She denies any decreased urine output. No fever/chills, chest pain, shortness of breath, other concerning findings. She did follow-up with her vacuum drier tender and basic lab work was obtained earlier this morning which showed some worsening kidney function and an elevated potassium so she was redirected to the emergency department. Patient presents the emergency room with generalized malaise. Vital signs stable on arrival. I did review her chart and she did have a creatinine of 2.3 earlier today with a baseline more around 1.5. Repeat creatinine here is again right around 2.3. IV fluids initiated. Patient still producing urine without difficulty. Potassium is 6.0 with EKG findings concerning for peaking T waves so calcium and bicarb administered. Patient will be kept on a monitor throughout emergency department stay. Other findings include hyperglycemia this could be nonketotic in nature as there is no anion gap or significant acidosis noted on lab work. Patient given home dose of insulin in the emergency department and a fluid bolus of normal saline given. At this time, due to patient's hyperkalemia, acute on chronic renal insufficiency, and hyperglycemia I do believe she requires admission to the hospital I did discuss this with on-call hospitalist. On-call hospitalist agrees. Maintenance fluids initiated, sliding scale high intensity protocol AC/at bedtime also initiated. Patient ordered a diabetic diet and will be admitted to the hospital. She is amenable to this plan. She also does have leukocytosis and again the leukocytosis and hyperglycemia could be secondary to steroid use. Above is per ER notes. Patient is followed in the office per Dr. Fischer. She has a history of type 1 diabetes, diagnosed at the age of 17. She has known renal insufficiency, she relays stage III, and his been maintained on an appropriate ARB. Patient's hospital stay had been preceded by general malaise. He does not have a history of DKA. She has a flat affect but is in no acute distress this morning. She appears to be tolerating IV fluids. Hospital Course Hospital Course: Patient was admitted with hyperkalemia and on acute renal insufficiency and the setting of type 1 diabetes. She was hydrated with normal saline, given Kayexalate. Her elevated potassium normalized. He returned to her baseline clinical status and is felt to be stable for discharge today. We will ask her to follow-up with her primary care physician. Sees Dr. Fischer and his group. Objective Vital signs: Temp Pulse Resp BP Pulse Ox 98.1 F 79 16 144/78 H 98 04/08/20 12:00 04/08/20 12:00 04/08/20 12:00 04/08/20 12:00 04/08/20 12:00 no acute distress, obese - *Routine HEENT Exam Head: Present: normocephalic Eye: Present: EOMI, PERRL ENT: Present: mucous membranes moist - *Routine Neck Exam Present: supple - *Routine Respiratory Exam Present: CTA bilaterally - *Routine Cardiovascular Exam Present: RRR - *Routine Abdominal Exam Present: soft, normoactive bowel sounds. Absent: tenderness - *Routine Extremities Exam Absent: cyanosis, clubbing, edema - *Routine Skin Exam Present: warm. Absent: rash Results Labs on day of discharge: Labs from last 24 hours 04/08/20 04/08/20 04/08/20 12:18 10:06 08:40 Sodium Potassium Chloride Carbon Dioxide Anion Gap BUN Creatinine Estimated Creat Clear Estimated GFR Est GFR ( Amer) Glucose POC Glucose 75 166 H 221 H Calcium Total Bilirubin
[2020-04-08 16:12] LABS: POC Glucose,Bedside 91 (70-110)
== END 2020-04-08 16:21 | disposition home or self-care (01) | DRG 638 ==
LOC: ER 18:45 → 2ND 21:24
PROVIDERS: Family Medicine; Admitting Provider Internal Medicine Adolescent Medicine; Emergency Provider Emergency Medicine; PCP Nurse Practitioner Family; Visit Provider Emergency Medicine
DX: E11.65 Type 2 diabetes mellitus with hyperglycemia (principal); F31.30 Bipolar disorder, current episode depressed, mild or moderate severity, unspecified; E87.5 Hyperkalemia; E11.22 Type 2 diabetes mellitus with diabetic chronic kidney disease; I12.9 Hypertensive chronic kidney disease with stage 1 through stage 4 chronic kidney disease, or unspecified chronic kidney disease; N18.30 Chronic kidney disease, stage 3 unspecified; I25.10 Atherosclerotic heart disease of native coronary artery without angina pectoris; J44.9 Chronic obstructive pulmonary disease, unspecified; Z87.891 Personal history of nicotine dependence; Z79.4 Long term (current) use of insulin; Z88.8 Allergy status to other drugs, medicaments and biological substances; Z79.51 Long term (current) use of inhaled steroids; Z79.52 Long term (current) use of systemic steroids; Z79.899 Other long term (current) drug therapy
CPT/HCPCS: 36415; 80048; 80053; 80069; 81001; 82306; 82570; 82962; 83735; 83970; 84155; 85007; 85025; 86328; 93005; 94640; 96372; 96374; 96375; 99284

== ENCOUNTER → 2020-04-09 15:43 | Outpatient (POV) | payer MEDICAID, SELFPAY | PROVIDERS: Visit Provider Internal Medicine Nephrology | DX: Z00.00 Encounter for general adult medical examination without abnormal findings (principal) ==

== ENCOUNTER → 2020-04-10 16:41 | Outpatient (CLI) | payer MEDICAID, SELFPAY ==
[2020-04-10 17:37] LABS: Anion Gap 11.4 mEq/L (5-15); Blood Urea Nitrogen 27 mg/dl (7-17); Calcium 8.5 mg/dl (8.4-10.2); Carbon Dioxide 25 mmol/L (22.0-30.0); Chloride 106 mmol/L (98-107); Estimated Glomerular Filt Rate 28 ml/min (>60); GFR (African American) 34 ML/MIN (>60); Glucose 103 mg/dl (74-100); Potassium 5.4 mmoL/L (3.5-5.1); Sodium 137 mmol/L (136-145)
[2020-04-10 20:11] LABS: Microalbumin > 1140.000 mg/L (0-16.7)
[2020-04-10 20:12] LABS: Creatinine,Urine Random 17 mg/dL (Not Estab.); Microalbumin/Creatinine Ratio 6705.8
== END ==
PROVIDERS: Visit Provider Family Medicine
DX: R73.09 Other abnormal glucose (principal); E87.5 Hyperkalemia
CPT/HCPCS: 80048; 82043; 82570

== ENCOUNTER 2020-04-11 16:00 | Outpatient (RCR) | payer MEDICAID, SELFPAY ==
--- NOTE | 2020-02-10 10:22 | HMH.PTOPWND ---
Rehab Outpt Wound Evaluation Rehab OP Wound Evaluation Start: 02/10/20 10:07 Freq: Status: Active Protocol: Document 02/10/20 10:16 BARBIE (Rec: 02/10/20 10:22 PHOLETICIA [id number]) Electronically Signed By Edi Schulte, PT 02/10/20 10:16 Subjective/History History History Pt is 44 yowf who presents with c/o continued B LE edema, L > R, with insidipous onset of symptoms x ~ 6-8 mos. This is the pt's 3rd evaluation in the past 4 mos for the same condition with limited follow through with her home treatment regimen. She continues to reports tenderness to palpation, but no pain in the legs at this time. SHe presents with pitting edema in B ankles currently. She reports PMH of DM-II, CKD, HTN, cardiac vlve regurgitation. She reports that she stopped smoking ~ 6 wks ago. Subjective Subjective No c/o pain, tenderness to palpation in B LE gaitor area 2/4. Lymphedema Eval Classification of Lymphedema Secondary Lymphedema Yes: likely related to CKD Stemmer's sign Stemmer's Sign no Stage of Lymphedema Lymphedema stages Stage I (Pitting edema, reduces w/ elevation, no fibrosis) Skin Changes Dry Skin Yes Redness Yes Other Changes Yes Pain Scale Pain Scale (0-10) 0 Affected Extremities Areas Affected by Lymphedema/Edema Right Lower Extremity,Left Lower Extremity Manual Lymphatic Drainage Treatment Area MLD Treatment Area Right Lower Extremity,Left Lower Extremity Wound Problems/Impairments Impairments Problems/Impairmments Palpation Tenderness,Impaired Recreational Activities, Increased Edema,Subjective C/O Pain,Impaired Self Care/Self Management Prognosis Rehab Potential Fair Clinical Impression Consistent with Diagnosis Yes Short Term Goals Number of Weeks 4 Decreased Palpation Tenderness Yes: 1/4 Decrease Edema Yes: 1+ pitting Patient to Understand Lymphed
--- NOTE | 2020-03-13 14:51 | HMH.RHREAS ---
Rehab Reassessment Rehab OP Re-assessment Start: 03/13/20 14:48 Freq: Status: Active Protocol: Document 03/13/20 14:49 BARBIE (Rec: 03/13/20 14:51 BARBIE [id number]) Electronically Signed By Edi Schulte, PT 03/13/20 14:49 Rehab Re-assessment Subjective Subjective Pt reports she continues to have some tenderness to palpation in B lower legs. Objective Objective Notes Circumferential measurements: R LE -8.1 cm since IE. L LE -8.2 cm since IE. Assessment Progress Assessment Progressing as Expected Assessment Notes Pt with decreased pitting edema in B LE, but some pain and tenderness remain. She has been more consistent with home program. Patient goals met STG; 1,2,3,4 Goals Not Met LT,2,3,4,5 Revised Goals none Plan Plan Continue per initial POC. Frequency of Therapy 2 x/wk Duration of therapy 8 wks Time and Billing Re-Eval Time 15 Re-Eval Billing Units 1 PHYSICIAN CERTIFICATION: I certify the specified therapy services for Melanie Mayo are required, authorized, and reviewed every 30 days.
== END 2020-04-11 16:05 | disposition home or self-care (01) ==
LOC: PT 16:00
PROVIDERS: PCP Nurse Practitioner Family; Visit Provider Nurse Practitioner Family
DX: R60.0 Localized edema (principal)
CPT/HCPCS: 97140; 97162; 97164

== ENCOUNTER → 2020-05-22 13:51 | Outpatient (CLI) | payer MEDICAID, SELFPAY ==
[2020-05-22 14:00] LABS: Microscopic, Urine URINE MICROSCOPIC (MICROSCOPIC)
[2020-05-22 14:22] LABS: Appearance,Urine CLEAR (Clear); Bilirubin,Urine Negative (Negative); Blood, Urine 2+ (Negative); Color,Urine YELLOW (Yellow); Glucose,Urine (UA) 3+ (Negative); Ketones,Urine Negative (Negative); Leukocyte Esterase,Urine Negative (Negative); Nitrate,Urine Negative (Negative); Protein,Urine 3+ (Negative); Specific Gravity, Urine 1.025 (1.005-1.030); Urobilinogen,Urine 0.2 EU/dl (0.2)
[2020-05-22 14:23] LABS: Basophils # 0.1 K/mm3 (0-0.2); Basophils % 0.6 % (0.1-2.0); Eosinophils # 0.6 K/mm3 (0.0-0.4); Eosinophils % 4.5 % (0.1-12.0); Hematocrit 37.1 % (37.0-47.0); Hemoglobin 12.1 g/dL (12.2-16.2); Lymphocytes # 2.1 K/mm3 (0.7-4.5); Lymphocytes % 17.4 % (10-50); Mean Corpuscular HGB Conc 32.5 g/dL (31.8-35.4); Mean Corpuscular Hemoglobin 27.8 pg (27.0-31.2); Mean Corpuscular Volume 85.3 fl (81-99); Mean Platelet Volume 10.2 fl (7.4-10.4); Monocytes # 0.4 K/mm3 (0.1-1.0); Monocytes % 3.3 % (1.7-9.3); Neutrophils % 74.1 % (37.0-80.0); Platelet Count 236 K/mm3 (142-424); Red Blood Count 4.34 M/mm3 (4.20-5.40); Red Cell Distribution Width 16.2 % (11.5-17.5); White Blood Count 12.1 K/mm3 (4.8-10.8)
[2020-05-22 14:43] LABS: Creatinine,Urine Random 89 mg/dL (Not Estab.); Total Protein,Urine Random > 600.0 mg/dL (0.0-12.0)
[2020-05-22 15:03] LABS: Bacteria,Urine 2+ /lpf
[2020-05-22 15:08] LABS: Chloride 108 mmol/L (98-107); Potassium 5.4 mmoL/L (3.5-5.1); Sodium 135 mmol/L (136-145)
[2020-05-22 15:09] LABS: Albumin Level 3.1 g/dl (3.5-5.0)
[2020-05-22 15:11] LABS: Anion Gap 10.4 mEq/L (5-15); Blood Urea Nitrogen 34 mg/dl (7-17); Calcium 8.8 mg/dl (8.4-10.2); Carbon Dioxide 22 mmol/L (22.0-30.0); Estimated Glomerular Filt Rate 25 ml/min (>60); GFR (African American) 31 ML/MIN (>60); Glucose 385 mg/dl (74-100); Phosphorous 4.7 mg/dl (2.5-4.5)
== END ==
PROVIDERS: Visit Provider Internal Medicine Nephrology
DX: N18.30 Chronic kidney disease, stage 3 unspecified (principal)
CPT/HCPCS: 36415; 80069; 81001; 82570; 84155; 85025; 87086

== ENCOUNTER → 2020-06-04 15:41 | Outpatient (POV) | payer MEDICAID, SELFPAY | PROVIDERS: Visit Provider Internal Medicine Nephrology | DX: Z00.00 Encounter for general adult medical examination without abnormal findings (principal) ==

== ENCOUNTER → 2020-07-23 09:24 | Outpatient (CLI) | payer MEDICAID, SELFPAY ==
[2020-07-23 09:31] LABS: Microscopic, Urine URINE MICROSCOPIC (MICROSCOPIC)
[2020-07-23 09:55] LABS: Appearance,Urine CLEAR (Clear); Basophils # 0.1 K/mm3 (0-0.2); Basophils % 0.8 % (0.1-2.0); Bilirubin,Urine Negative (Negative); Blood, Urine 1+ (Negative); Color,Urine YELLOW (Yellow); Eosinophils # 0.4 K/mm3 (0.0-0.4); Eosinophils % 3.5 % (0.1-12.0); Glucose,Urine (UA) 3+ (Negative); Hematocrit 37.3 % (37.0-47.0); Hemoglobin 11.9 g/dL (12.2-16.2); Ketones,Urine Negative (Negative); Leukocyte Esterase,Urine Negative (Negative); Lymphocytes # 1.7 K/mm3 (0.7-4.5); Lymphocytes % 17.5 % (10-50); Mean Corpuscular HGB Conc 31.8 g/dL (31.8-35.4); Mean Corpuscular Hemoglobin 27.5 pg (27.0-31.2); Mean Corpuscular Volume 86.3 fl (81-99); Monocytes # 0.3 K/mm3 (0.1-1.0); Monocytes % 3.3 % (1.7-9.3); Neutrophils # 7.4 K/mm3 (1.8-7.8); Neutrophils % 74.9 % (37.0-80.0); Nitrate,Urine Negative (Negative); Platelet Count 220 K/mm3 (142-424); Protein,Urine 3+ (Negative); Red Blood Count 4.32 M/mm3 (4.20-5.40); Red Cell Distribution Width 15.8 % (11.5-17.5); Urobilinogen,Urine 0.2 EU/dl (0.2); White Blood Count 9.9 K/mm3 (4.8-10.8)
[2020-07-23 10:01] LABS: Creatinine,Urine Random 66 mg/dL (Not Estab.)
[2020-07-23 10:15] LABS: Chloride 107 mmol/L (98-107); Potassium 5.1 mmoL/L (3.5-5.1); Sodium 133 mmol/L (136-145)
[2020-07-23 10:16] LABS: Albumin Level 3.2 g/dl (3.5-5.0)
[2020-07-23 10:18] LABS: Anion Gap 9.1 mEq/L (5-15); Blood Urea Nitrogen 27 mg/dl (7-17); Calcium 8.5 mg/dl (8.4-10.2); Carbon Dioxide 22 mmol/L (22.0-30.0); Estimated Glomerular Filt Rate 27 ml/min (>60); GFR (African American) 32 ML/MIN (>60); Phosphorous 5.2 mg/dl (2.5-4.5)
[2020-07-23 10:42] LABS: Glucose 479 mg/dl (74-100)
== END ==
PROVIDERS: PCP Nurse Practitioner Family; Visit Provider Internal Medicine Nephrology
DX: I20.9 Angina pectoris, unspecified (principal); R42 Dizziness and giddiness; E78.2 Mixed hyperlipidemia; I10 Essential (primary) hypertension; K21.9 Gastro-esophageal reflux disease without esophagitis; N18.30 Chronic kidney disease, stage 3 unspecified
CPT/HCPCS: 36415; 80069; 81001; 82570; 84155; 85025; 93270

== ENCOUNTER → 2020-08-27 16:54 | Outpatient (CLI) | payer MEDICAID, SELFPAY ==
[2020-08-27 17:00] LABS: Microscopic, Urine URINE MICROSCOPIC (MICROSCOPIC)
[2020-08-27 17:17] LABS: Appearance,Urine CLEAR (Clear); Bilirubin,Urine Negative (Negative); Blood, Urine 2+ (Negative); Color,Urine YELLOW (Yellow); Glucose,Urine (UA) 1+ (Negative); Ketones,Urine Negative (Negative); Leukocyte Esterase,Urine Negative (Negative); Nitrate,Urine Negative (Negative); Protein,Urine 3+ (Negative); Urobilinogen,Urine 0.2 EU/dl (0.2)
[2020-08-27 17:18] LABS: Basophils # 0.1 K/mm3 (0-0.2); Basophils % 0.9 % (0.1-2.0); Eosinophils # 0.4 K/mm3 (0.0-0.4); Eosinophils % 3.6 % (0.1-12.0); Hematocrit 35.8 % (37.0-47.0); Hemoglobin 11.4 g/dL (12.2-16.2); Lymphocytes # 2.7 K/mm3 (0.7-4.5); Lymphocytes % 23.1 % (10-50); Mean Corpuscular HGB Conc 31.9 g/dL (31.8-35.4); Mean Corpuscular Hemoglobin 27.1 pg (27.0-31.2); Mean Corpuscular Volume 84.9 fl (81-99); Mean Platelet Volume 9.7 fl (7.4-10.4); Monocytes # 0.4 K/mm3 (0.1-1.0); Monocytes % 3.4 % (1.7-9.3); Platelet Count 285 K/mm3 (142-424); Red Blood Count 4.21 M/mm3 (4.20-5.40); Red Cell Distribution Width 16.2 % (11.5-17.5); White Blood Count 11.6 K/mm3 (4.8-10.8)
[2020-08-27 17:48] LABS: Bacteria,Urine 1+ /lpf
[2020-08-27 17:58] LABS: Albumin Level 3.5 g/dl (3.5-5.0); Chloride 109 mmol/L (98-107); Potassium 5.3 mmoL/L (3.5-5.1); Sodium 138 mmol/L (136-145)
[2020-08-27 18:01] LABS: Anion Gap 11.3 mEq/L (5-15); Blood Urea Nitrogen 29 mg/dl (7-17); Carbon Dioxide 23 mmol/L (22.0-30.0); Estimated Glomerular Filt Rate 25 ml/min (>60); GFR (African American) 31 ML/MIN (>60); Phosphorous 4.9 mg/dl (2.5-4.5)
[2020-08-27 18:02] LABS: Calcium 8.6 mg/dl (8.4-10.2); Glucose 149 mg/dl (74-100)
[2020-08-27 18:19] LABS: Creatinine,Urine Random 60 mg/dL (Not Estab.)
[2020-08-27 18:21] LABS: Hemoglobin A1C 10.2 % (4.0-6.0)
[2020-08-27 20:45] LABS: Total Protein,Urine Random > 600.0 mg/dL (0.0-12.0)
== END ==
PROVIDERS: Visit Provider Internal Medicine Nephrology
DX: N18.30 Chronic kidney disease, stage 3 unspecified (principal)
CPT/HCPCS: 36415; 80069; 81001; 82570; 83036; 84155; 85025

== ENCOUNTER → 2020-08-30 14:45 | Outpatient (POV) | payer MEDICAID, SELFPAY | PROVIDERS: Visit Provider Internal Medicine Nephrology | DX: Z00.00 Encounter for general adult medical examination without abnormal findings (principal) ==

== ENCOUNTER → 2020-09-26 12:04 | Outpatient (CLI) | payer MEDICAID, SELFPAY ==
[2020-09-26 13:30] LABS: Anion Gap 9.9 mEq/L (5-15); Blood Urea Nitrogen 22 mg/dl (7-17); Calcium 8.8 mg/dl (8.4-10.2); Carbon Dioxide 23 mmol/L (22.0-30.0); Chloride 112 mmol/L (98-107); Estimated Glomerular Filt Rate 27 ml/min (>60); GFR (African American) 32 ML/MIN (>60); Glucose 187 mg/dl (74-100); Potassium 5.9 mmoL/L (3.5-5.1); Sodium 139 mmol/L (136-145)
== END ==
PROVIDERS: Visit Provider Physician Assistant
DX: N18.9 Chronic kidney disease, unspecified (principal)
CPT/HCPCS: 80048; 83735

== ENCOUNTER → 2020-10-11 17:25 | Outpatient (CLI) | payer MEDICAID, SELFPAY | PROVIDERS: Visit Provider Nurse Practitioner Family | DX: B37.9 Candidiasis, unspecified (principal); N39.0 Urinary tract infection, site not specified | CPT/HCPCS: 87086; 87088; 87186 ==

== ENCOUNTER → 2020-11-02 15:54 | Outpatient (CLI) | payer MEDICAID, SELFPAY ==
[2020-11-02 15:57] LABS: Microscopic, Urine URINE MICROSCOPIC (MICROSCOPIC)
[2020-11-02 16:20] LABS: Appearance,Urine CLEAR (Clear); Bilirubin,Urine Negative (Negative); Blood, Urine 1+ (Negative); Color,Urine YELLOW (Yellow); Glucose,Urine (UA) 1+ (Negative); Ketones,Urine Negative (Negative); Leukocyte Esterase,Urine Negative (Negative); Nitrate,Urine Negative (Negative); Protein,Urine 3+ (Negative); Specific Gravity, Urine 1.025 (1.005-1.030); Urobilinogen,Urine 0.2 EU/dl (0.2)
[2020-11-02 16:29] LABS: Basophils # 0.1 K/mm3 (0-0.2); Basophils % 1.2 % (0.1-2.0); Eosinophils # 0.4 K/mm3 (0.0-0.4); Eosinophils % 3.2 % (0.1-12.0); Hematocrit 35.6 % (37.0-47.0); Hemoglobin 11.8 g/dL (12.2-16.2); Lymphocytes # 2.2 K/mm3 (0.7-4.5); Lymphocytes % 18.8 % (10-50); Mean Corpuscular HGB Conc 33.1 g/dL (31.8-35.4); Mean Corpuscular Hemoglobin 27.1 pg (27.0-31.2); Mean Corpuscular Volume 81.9 fl (81-99); Mean Platelet Volume 8.9 fl (7.4-10.4); Monocytes # 0.4 K/mm3 (0.1-1.0); Neutrophils # 8.5 K/mm3 (1.8-7.8); Neutrophils % 73.8 % (37.0-80.0); Platelet Count 350 K/mm3 (142-424); Red Blood Count 4.35 M/mm3 (4.20-5.40); Red Cell Distribution Width 16.2 % (11.5-17.5); White Blood Count 11.6 K/mm3 (4.8-10.8)
[2020-11-02 16:45] LABS: Bacteria,Urine 1+ /lpf; Squamous Epithelial Cell,Urine Occasional #/hpf (0-5); WBC,Urine Occasional #/hpf (0-3)
[2020-11-02 17:06] LABS: Creatinine,Urine Random 97 mg/dL (Not Estab.); Total Protein,Urine Random > 600.0 mg/dL (0.0-12.0)
[2020-11-02 17:39] LABS: Chloride 110 mmol/L (98-107); Potassium 5.5 mmoL/L (3.5-5.1); Sodium 141 mmol/L (136-145)
[2020-11-02 17:40] LABS: Albumin Level 3.6 g/dl (3.5-5.0)
[2020-11-02 17:42] LABS: Anion Gap 13.5 mEq/L (5-15); Blood Urea Nitrogen 32 mg/dl (7-17); Calcium 8.7 mg/dl (8.4-10.2); Carbon Dioxide 23 mmol/L (22.0-30.0); Estimated Glomerular Filt Rate 21 ml/min (>60); GFR (African American) 25 ML/MIN (>60); Glucose 115 mg/dl (74-100); Phosphorous 5.4 mg/dl (2.5-4.5)
== END ==
PROVIDERS: Visit Provider Internal Medicine Nephrology
DX: N18.4 Chronic kidney disease, stage 4 (severe) (principal)
CPT/HCPCS: 36415; 80069; 81001; 82570; 84155; 85025

== ENCOUNTER → 2020-11-05 15:19 | Outpatient (POV) | payer MEDICAID, SELFPAY | PROVIDERS: Visit Provider Internal Medicine Nephrology | DX: Z00.00 Encounter for general adult medical examination without abnormal findings (principal) ==

== ENCOUNTER 2020-12-13 16:00 | Outpatient (RCR) | payer MEDICAID, SELFPAY ==
--- NOTE | 2020-08-21 14:18 | HMH.PTOPWND ---
Rehab Outpt Wound Evaluation Rehab OP Wound Evaluation Start: 08/21/20 14:11 Freq: Status: Active Protocol: Document 08/21/20 14:11 BARBIE (Rec: 08/21/20 14:18 PHORNE [id number]) Electronically Signed By Edi Schulte, PT 08/21/20 14:11 Subjective/History History History Pt is 45 yowf who presents with c/o increased B LE edema, L > R, x 3-4 mos this episode . Pt has been seen in our clinic previously with good results from treatment. She also reports intermittent cramps in her legs, worse in the L thigh. She has hx of significant abdominal surgies, I think about 18 of them, DM, and Hidradentitis Suppurativa. Subjective Subjective Pain in B LE that comes and goes. B LE gaitor area palpation tenderness 2/4. Lymphedema Eval Classification of Lymphedema Secondary Lymphedema Yes Stemmer's sign Stemmer's Sign no Stage of Lymphedema Lymphedema stages Stage II (Pitting edema, increased fibrosis w/ decreased pitting) Skin Changes Dry Skin Yes Skin Folds Yes Redness Yes Blisters Yes Wounds Yes Brittle Uneven Nails Yes Discoloration of Skin Yes Other Changes Yes Affected Extremities Areas Affected by Lymphedema/Edema Abdomen,Right Lower Extremity, Left Lower Extremity Manual Lymphatic Drainage Treatment Area MLD Treatment Area Abdomen,Right Lower Extremity, Left Lower Extremity Wound Problems/Impairments Impairments Problems/Impairmments Palpation Tenderness,Impaired Walking,Impaired Standing, Impaired Recreational Activities,Increased Edema, Lymphedema Present,Wound Care Needs,Subjective C/O Pain, Impaired Self Care/Self Management Prognosis Rehab Potential Good Clinical Impression Consistent with Diagnosis Yes Short Term Goals Number of Weeks 4 Decrease Edema Yes Patient to Understand Lymphedema Yes Treatment and Exercises Decrease Gi
--- NOTE | 2020-09-20 15:14 | HMH.RHREAS ---
Rehab Reassessment Rehab OP Re-assessment Start: 09/20/20 15:03 Freq: Status: Active Protocol: Document 09/20/20 15:04 BARBIE (Rec: 09/20/20 15:14 BARBIE [id number]) Electronically Signed By Edi Schulte, PT 09/20/20 15:04 Rehab Re-assessment Subjective Subjective Pt reports no c/o pain in the legs, but significant feelings of heaviness, worse in the L LE. Objective Objective Notes Circumferential measurements: R LE total is +3.8 cm since IE . L LE total is +9.9 cm since IE. 2+ pitting edema remains in B LE. Assessment Progress Assessment Slower Than Expected Assessment Notes Pt has had difficulty managing edema due to loss of her edema wear and difficulty with consistent transportation to appointments. Her edema continues to increase steadily when she is between treatments for long periods. Patient goals met none Goals Not Met ST,2,3 LT,2,3,4,5,6 ,7 Revised Goals none Plan Plan Continue per initial POC Frequency of Therapy 2 x/wk Duration of therapy 8 wks Time and Billing Re-Eval Time 15 Re-Eval Billing Units 0 PHYSICIAN CERTIFICATION: I certify the specified therapy services for Melanie Mayo are required, authorized, and reviewed every 30 days.
--- NOTE | 2020-10-19 15:37 | HMH.RHREAS ---
Rehab Reassessment Rehab OP Re-assessment Start: 09/20/20 15:03 Freq: Status: Active Protocol: Document 10/19/20 15:31 BARBIE (Rec: 10/19/20 15:37 BARBIE [id number]) Electronically Signed By Edi Schulte, PT 10/19/20 15:31 Rehab Re-assessment Subjective Subjective Pt reports no c/o pain in the legs, but significant feelings of heaviness, worse in the L LE. Objective Objective Notes B LE with 1+ pitting edema, Fibrotic edema remains worse in L LE. Assessment Progress Assessment Progressing as Expected Assessment Notes Pt with decreasing edema overall, less pain and tenderness to palpation. Improving mobility with less edema. Patient goals met ST,2,3 Goals Not Met LT,2,3,4,5,6,7 Revised Goals none Plan Plan Continue per initial POC Frequency of Therapy 2 x/wk Duration of therapy 8 wks Time and Billing Re-Eval Time 15 Re-Eval Billing Units 0 PHYSICIAN CERTIFICATION: I certify the specified therapy services for Melanie Mayo are required, authorized, and reviewed every 30 days.
--- NOTE | 2020-11-14 16:02 | HMH.RHREAS ---
Rehab Reassessment Rehab OP Re-assessment Start: 09/20/20 15:03 Freq: Status: Active Protocol: Document 11/14/20 15:57 BARBIE (Rec: 11/14/20 16:02 BARBIE [id number]) Electronically Signed By Edi Schulte, PT 11/14/20 15:57 Rehab Re-assessment Subjective Subjective Pt reports she feels less pain and tenderness overall, but I still get some cramping in my legs sometimes at night. Objective Objective Notes B lower legs with minimal fibrotic edema noted, L > R. No pitting edema noted. Palpation tenderness: 0/4 to B LE this date. Assessment Progress Assessment Progressing as Expected Assessment Notes Steadily improved edema overall. Mild fibrosis remains in lower lges near the ankle. Pt awaiting delivery of lymphedema compression pumps , which should significantly decrease edema longterm. Patient goals met ST,2,3 Goals Not Met LT,2,3,4,5,6,7 Revised Goals none Plan Plan Continue per initial POC Frequency of Therapy 2 x/wk Duration of therapy 8 wks Time and Billing Re-Eval Time 15 Re-Eval Billing Units 0 PHYSICIAN CERTIFICATION: I certify the specified therapy services for Melanie Mayo are required, authorized, and reviewed every 30 days.
== END 2020-12-13 16:05 | disposition home or self-care (01) ==
LOC: PT 16:00
PROVIDERS: PCP Nurse Practitioner Family; Visit Provider Nurse Practitioner Family
DX: I89.0 Lymphedema, not elsewhere classified (principal)
CPT/HCPCS: 97140; 97162; 97164

== ENCOUNTER → 2020-12-19 18:43 | Outpatient (CLI) | payer MEDICAID, SELFPAY ==
[2020-12-19 19:52] LABS: T4 (Thyroxine) 7.4 ug/dl (5.53-11.0)
[2020-12-19 20:05] LABS: Thyroid Stimulating Hormone 2.47 uIU/mL (0.465-4.68)
[2020-12-19 20:40] LABS: Vitamin B12 254 pg/mL (239-931)
[2020-12-19 20:41] LABS: Folate 6.41 ng/mL
== END ==
PROVIDERS: Visit Provider Nurse Practitioner Family
DX: E03.9 Hypothyroidism, unspecified (principal)
CPT/HCPCS: 82607; 82746; 84436; 84443

== ENCOUNTER 2021-01-17 16:00 | Outpatient (RCR) | payer MEDICAID, SELFPAY ==
--- NOTE | 2021-01-08 15:28 | HMH.PTOPWND ---
Rehab Outpt Wound Evaluation Rehab OP Wound Evaluation Start: 01/08/21 15:23 Freq: Status: Active Protocol: Document 01/08/21 15:23 BARBIE (Rec: 01/08/21 15:28 PHOLETICIA [id number]) Electronically Signed By Edi Schulte, PT 01/08/21 15:23 Subjective/History History History Pt is 45 yowf who presents with c/o increased feelings of heaviness in the L LE for several monhs. She has hx of B LE edema for several years and has responded well for treatment. However, she has been waiting to receive a lymphedema pump for use at home and this has limited her ability to self-treat. She reports no c/o pain currently, but is tender to palpation along the L lower leg. Subjective Subjective Pt presents with 2+ pitting edema to L lower leg this date . Lymphedema Eval Classification of Lymphedema Secondary Lymphedema Yes Stemmer's sign Stemmer's Sign no Stage of Lymphedema Lymphedema stages Stage I (Pitting edema, reduces w/ elevation, no fibrosis) Skin Changes Dry Skin Yes Blisters Yes Other Changes Yes Pain Scale Pain Scale (0-10) 0 Affected Extremities Areas Affected by Lymphedema/Edema Right Lower Extremity,Left Lower Extremity Manual Lymphatic Drainage Treatment Area MLD Treatment Area Right Lower Extremity,Left Lower Extremity Wound Problems/Impairments Impairments Problems/Impairmments Palpation Tenderness,Impaired Walking,Impaired Standing, Impaired Recreational Activities,Increased Edema, Lymphedema Present,Subjective C/O Pain,Impaired Self Care/ Self Management Prognosis Rehab Potential Good Clinical Impression Consistent with Diagnosis Yes Short Term Goals Number of Weeks 4 Decreased Palpation Tenderness Yes Decrease Edema Yes Patient to Understand Lymphedema Yes Treatment and Exercises Fpc Goals Number of Weeks 8 Return to Recreational Activities Yes Decrease Lymphedema Yes
== END 2021-01-17 16:05 | disposition home or self-care (01) ==
LOC: PT 16:00
PROVIDERS: Visit Provider Nurse Practitioner Family
DX: I89.0 Lymphedema, not elsewhere classified (principal)
CPT/HCPCS: 97162

== ENCOUNTER → 2021-01-30 12:20 | Outpatient (CLI) | payer MEDICAID, SELFPAY ==
[2021-01-30 12:24] LABS: Microscopic, Urine URINE MICROSCOPIC (MICROSCOPIC)
[2021-01-30 12:51] LABS: Hematocrit 35.2 % (37.0-47.0); Hemoglobin 11.3 g/dL (12.2-16.2); Mean Corpuscular HGB Conc 32.2 g/dL (31.8-35.4); Mean Corpuscular Hemoglobin 27.4 pg (27.0-31.2); Mean Corpuscular Volume 85.1 fl (81-99); Platelet Count 340 K/mm3 (142-424); Red Blood Count 4.13 M/mm3 (4.20-5.40); Red Cell Distribution Width 16.1 % (11.5-17.5)
[2021-01-30 13:34] LABS: Creatinine,Urine Random 81 mg/dL (Not Estab.)
[2021-01-30 13:35] LABS: Albumin Level 3.1 g/dl (3.5-5.0); Anion Gap 8.4 mEq/L (5-15); Blood Urea Nitrogen 21 mg/dl (7-17); Calcium 8.7 mg/dl (8.4-10.2); Carbon Dioxide 24 mmol/L (22.0-30.0); Chloride 110 mmol/L (98-107); Estimated Glomerular Filt Rate 32 ml/min (>60); GFR (African American) 39 ML/MIN (>60); Glucose 143 mg/dl (74-100); Phosphorous 3.6 mg/dl (2.5-4.5); Potassium 4.4 mmoL/L (3.5-5.1); Sodium 138 mmol/L (136-145)
[2021-01-30 13:46] LABS: Intact Parathyroid Hormone 251.3 pg/mL (7.5-53.5)
[2021-01-30 13:50] LABS: 25-OH Vitamin D, Total 14.8 ng/mL (30-100)
[2021-01-30 16:24] LABS: Total Protein,Urine Random > 1200.0 mg/dL (0.0-12.0)
[2021-01-30 20:18] LABS: Appearance,Urine CLEAR (Clear); Bilirubin,Urine Negative (Negative); Blood, Urine 1+ (Negative); Color,Urine YELLOW (Yellow); Glucose,Urine (UA) 1+ (Negative); Ketones,Urine Negative (Negative); Leukocyte Esterase,Urine Negative (Negative); Nitrate,Urine Negative (Negative); Protein,Urine 3+ (Negative); Urobilinogen,Urine 0.2 EU/dl (0.2)
[2021-01-30 20:32] LABS: Bacteria,Urine Trace /lpf
== END ==
PROVIDERS: Visit Provider Internal Medicine Nephrology
DX: N18.4 Chronic kidney disease, stage 4 (severe) (principal)
CPT/HCPCS: 36415; 80069; 81001; 82306; 82570; 83970; 84155; 85014; 85018; 85048; 85049

== ENCOUNTER → 2021-03-04 13:40 | Outpatient (POV) | payer MEDICAID, SELFPAY ==
[2021-03-04 14:39] LABS: Microscopic, Urine URINE MICROSCOPIC (MICROSCOPIC)
[2021-03-04 15:09] LABS: Hematocrit 34.5 % (37.0-47.0); Hemoglobin 10.8 g/dL (12.2-16.2); Mean Corpuscular HGB Conc 31.2 g/dL (31.8-35.4); Mean Corpuscular Hemoglobin 26.9 pg (27.0-31.2); Mean Corpuscular Volume 86.2 fl (81-99); Platelet Count 340 K/mm3 (142-424); Red Blood Count 4.01 M/mm3 (4.20-5.40); Red Cell Distribution Width 16.5 % (11.5-17.5); White Blood Count 10.8 K/mm3 (4.8-10.8)
[2021-03-04 21:15] LABS: Creatinine,Urine Random 71 mg/dL (Not Estab.)
[2021-03-04 22:48] LABS: Albumin Level 3.3 g/dl (3.5-5.0); Anion Gap 11.9 mEq/L (5-15); Blood Urea Nitrogen 30 mg/dl (7-17); Calcium 8.4 mg/dl (8.4-10.2); Carbon Dioxide 24 mmol/L (22.0-30.0); Chloride 107 mmol/L (98-107); Estimated Glomerular Filt Rate 23 ml/min (>60); GFR (African American) 28 ML/MIN (>60); Glucose 74 mg/dl (74-100); Phosphorous 4.5 mg/dl (2.5-4.5); Potassium 4.9 mmoL/L (3.5-5.1); Sodium 138 mmol/L (136-145)
[2021-03-04 23:20] LABS: Bilirubin,Urine Negative (Negative); Blood, Urine 3+ (Negative); Color,Urine YELLOW (Yellow); Glucose,Urine (UA) TRACE (Negative); Ketones,Urine Negative (Negative); Leukocyte Esterase,Urine Negative (Negative); Nitrate,Urine Negative (Negative); Protein,Urine 2+ (Negative); Specific Gravity, Urine 1.025 (1.005-1.030); Urobilinogen,Urine 0.2 EU/dl (0.2)
[2021-03-04 23:27] LABS: Appearance,Urine Slightly Cloudy (Clear)
[2021-03-04 23:33] LABS: Bacteria,Urine 1+ /lpf; WBC,Urine Occasional #/hpf (0-3)
== END ==
PROVIDERS: Internal Medicine Nephrology; Visit Provider Internal Medicine Nephrology
DX: N18.4 Chronic kidney disease, stage 4 (severe) (principal)
CPT/HCPCS: 36415; 80069; 81001; 82570; 84155; 85014; 85018; 85048; 85049

== ENCOUNTER 2021-03-29 23:05 | Emergency (ER) | payer MEDICAID, SELFPAY ==
[2021-03-29 23:07] VITALS: BP 185/98; PULSE 115; RESP 19; TEMP 36.6; O2SAT 99; BMI 40.4
--- NOTE | 2021-03-29 23:11 | ECG_ITS ---
APPROVED REPORT Exam: Resting ECG HR:107 bpm ECG Measurements Heart Rate 107 AXES OH 136 P 63 QRSd 92 QRS -55 QT 334 T 90 QTc 445 Conclusion Sinus tachycardia Incomplete right bundle branch block Left anterior fascicular block Moderate voltage criteria for LVH, may be normal variant Abnormal ECG Electronically signed by : Demarcus Miranda MD 03/30/2021 09:04:07
[2021-03-29 23:23] VITALS: BP 193/89; PULSE 108; RESP 15; O2SAT 100
--- NOTE | 2021-03-29 23:25 | HMH.EDCP ---
ED Disposition Clinical Impression: Tobacco abuse, Renal insufficiency Chest pain Qualifiers: Chest pain type: unspecified Qualified Code(s): R07.9 - Chest pain, unspecified CAD (coronary artery disease) Qualifiers: Coronary Disease-Associated Artery/Lesion type: [place] artery [place] vs. transplanted heart: standing [place] heart Associated angina: with stable angina Qualified Code(s): I25.118 - Atherosclerotic heart disease of standing [place] coronary artery with other forms of angina pectoris Disposition: Home, Self-Care Condition on Discharge: Good Instructions: DI for Atypical Chest Pain Additional Instructions: hold lasix and neurotin and see pcp thursday or thursday Referrals: Dyllan Gil APRN [Primary Care Provider] - - Critical Care Critical Care Time: No Attestation: On , the high probability of a clinically significant, sudden or life threatening deterioration of the following system(s) required my full and direct attention, intervention and personal management. The time I documented below is in addition to time spent performing reported procedures but includes the following listed in this critical care notation. Medical Decision Making - Medical Records Medical records reviewed: Yes: I reviewed the patient's medical records. - Tyshawn Inquiry Pt receiving controlled substance: No Vital Signs: 03/29/21 23:07 03/29/21 23:23 03/29/21 23:30 Temperature 97.9 F Temperature Source Oral Pulse Rate 108 H Pulse Rate [Right] 115 H Respiratory Rate 19 15 16 Blood Pressure 193/89 H 168/93 H Blood Pressure [Right Arm] 185/98 H Blood Pressure Mean [Right Arm] 127 Blood Pressure Source [Right Arm] Automatic Cuff 02 Sat by Pulse Oximetry 99 100 Oxygen Delivery Method Room Air 03/30/21 00:00 03/30/21 00:25 03/30/21 00:30 Temperature Temperature Source Pulse Rate 101 H 101 H 99 H Pulse Rate [Right] Respiratory Rate 19 21 19 Blood Pressure 185/95 H 165/86 H 166/90 H Blood Pressure [Right Arm] Blood Pressure Mean [Right Arm] Blood Pressure Source [Right Arm] 02 Sat by Pulse Oximetry 99 97 99 Oxygen Delivery Method 03/30/21 01:33 Temperature Temperature Source Pulse Rate 107 H Pulse Rate [Right] Respiratory Rate Blood Pressure 139/63 Blood Pressure [Right Arm] Blood Pressure Mean [Right Arm] Blood Pressure Source [Right Arm] 02 Sat by Pulse Oximetry 97 Oxygen Delivery Method - Lab Data Lab results reviewed: Yes: I reviewed the patient's lab results. Lab Results 03/29/21 23:22: WBC 11.7 H, RBC 3.87 L, Hgb 10.4 L, Hct 31.9 L, MCV 82.3, MCH 27.0, MCHC 32.8, RDW 16.5, Plt Count 289, MPV 9.7, Neut % (Auto) 68.5, Lymph % (Auto) 22.8, [place] % (Auto) 3.9, Eos % (Auto) 4.0, Baso % (Auto) 0.8, Neut # (Auto) 8.0 H, Lymph # (Auto) 2.7, [place] # (Auto) 0.5, Eos # (Auto) 0.5 H, Baso # (Auto) 0.1 03/29/21 23:22: ESR 117 H 03/29/21 23:22: Sodium 139, Potassium 4.4, Chloride 107, Carbon Dioxide 27, Anion Gap 9.4, BUN 45 H, Creatinine 2.70 H, Estimated Creat Clear 45, Estimated GFR 19 L*, Est GFR ( Amer) 23 L, Glucose 122 H, Calcium 9.3, Magnesium 1.9, Total Bilirubin 0.1 L, Direct Bilirubin 0.1, Conjugated Bilirubin 0.0, Indirect Bilirubin 0.0, Unconjugated Bilirubin 0.0, AST 25, ALT 12, Alkaline Phosphatase 120, Troponin I 0.02, C-Reactive Protein 6.9 H, Total Protein 7.1, Albumin 3.5, Amylase 114 H, Lipase 77, Procalcitonin 0.151 03/29/21 23:22: NT-Pro-B Natriuret Pep 371 H 03/30/21 01:35: Urine Color Yellow, Urine Appearance Clear, Urine pH 7.0, Ur Specific [place] 1.020, Urine Protein 3+, Urine Glucose (UA) 1+, Urine Ketones Negative, Urine Blood 1+, Urine Nitrate Negative, Urine Bilirubin Negative, Urine Urobilinogen 0.2, Ur Leukocyte Esterase Negative, Urine RBC 5-10, Urine WBC 3-5, Ur Squamous Epith Cells 5-10 03/30/21 02:00: Troponin I 0.02 Result diagrams: 03/29/21 23:22 03/29/21 23:22 Orders (Tests/Meds): ED MEDICATIONS Generic Name Dose Route Start Last Ad
--- NOTE | 2021-03-29 23:27 | XR_ITS ---
PROCEDURE INFORMATION: Exam: XR Chest Exam date and time: 03/29/2021 11:27 PM Age: 46 years old Clinical indication: Sternal or substernal pain; Additional info: Cp TECHNIQUE: Imaging protocol: XR of the chest. Views: 2 views. COMPARISON: CR CXR1 CHEST-PORTABLE 09/15/2016 2:36 PM FINDINGS: Lungs: Clear. No consolidation. Pleural spaces: No pleural effusion. No pneumothorax. Heart/Mediastinum: Unremarkable. No cardiomegaly. Bones/joints: Unremarkable. IMPRESSION: No acute findings.
[2021-03-29 23:30] VITALS: BP 168/93; RESP 16
[2021-03-29 23:31] LABS: Basophils # 0.1 K/mm3 (0-0.2); Basophils % 0.8 % (0.1-2.0); Eosinophils # 0.5 K/mm3 (0.0-0.4); Hematocrit 31.9 % (37.0-47.0); Hemoglobin 10.4 g/dL (12.2-16.2); Lymphocytes # 2.7 K/mm3 (0.7-4.5); Lymphocytes % 22.8 % (10-50); Mean Corpuscular HGB Conc 32.8 g/dL (31.8-35.4); Mean Corpuscular Volume 82.3 fl (81-99); Mean Platelet Volume 9.7 fl (7.4-10.4); Monocytes # 0.5 K/mm3 (0.1-1.0); Monocytes % 3.9 % (1.7-9.3); Neutrophils % 68.5 % (37.0-80.0); Platelet Count 289 K/mm3 (142-424); Red Blood Count 3.87 M/mm3 (4.20-5.40); Red Cell Distribution Width 16.5 % (11.5-17.5); White Blood Count 11.7 K/mm3 (4.8-10.8)
[2021-03-29 23:40] LABS: Alanine Aminotransferase 12 U/L (12-78); Albumin Level 3.5 g/dl (3.5-5.0); Alkaline Phosphatase 120 U/L (38-126); Amylase 114 U/L (30-110); Anion Gap 9.4 mEq/L (5-15); Aspartate Amino Transferase 25 U/L (14-36); Blood Urea Nitrogen 45 mg/dl (7-17); Calcium 9.3 mg/dl (8.4-10.2); Carbon Dioxide 27 mmol/L (22.0-30.0); Chloride 107 mmol/L (98-107); Creatinine Clearance Estimated 45 mL/min (50-200); Estimated Glomerular Filt Rate 19 ml/min (>60); GFR (African American) 23 ML/MIN (>60); Glucose 122 mg/dl (74-100); Lipase 77 U/L (23-300); Magnesium 1.9 mg/dl (1.6-2.3); Potassium 4.4 mmoL/L (3.5-5.1); Sodium 139 mmol/L (136-145); Total Protein,Serum 7.1 g/dl (6.3-8.2)
[2021-03-30] VITALS (8 sets, daily range): BP systolic 134–185; BP diastolic 63–95; PULSE 99–107; RESP 18–21; TEMP 36.6; O2SAT 97–100
[2021-03-30 00:05] LABS: Erythrocyte Sedimentation Rate 117 mm/hr (0-20)
[2021-03-30 00:09] LABS: NT Pro Brain Natriuretic Pep. 371 pg/mL (0-125)
[2021-03-30 00:33] LABS: Bilirubin,Direct 0.1 mg/dl (0.0-0.4)
[2021-03-30 00:36] LABS: Bilirubin,Total 0.1 mg/dl (0.2-1.3)
[2021-03-30 00:39] LABS: C-Reactive Protein 6.9 mg/L (0-4)
[2021-03-30 00:48] LABS: Troponin I 0.02 ng/ml (0.00-0.034)
--- NOTE | 2021-03-30 00:49 | PC.NURSE ---
called lab to check status of troponin, it should be ready soon .
[2021-03-30 00:52] LABS: Procalcitonin 0.151 ng/mL (0.0-2.0)
--- NOTE | 2021-03-30 01:08 | CT_ITS ---
PROCEDURE INFORMATION: Exam: CT Abdomen And Pelvis Without Contrast Exam date and time: 03/30/2021 1:08 AM Age: 46 years old Clinical indication: Nausea; Prior surgery; Surgery date: 6+ months; Surgery type: C section; Additional info: Gerd, n/v TECHNIQUE: Imaging protocol: Computed tomography of the abdomen and pelvis without contrast. Radiation optimization: All CT scans at this facility use at least one of these dose optimization techniques: automated exposure control; mA and/or kV adjustment per patient size (includes targeted exams where dose is matched to clinical indication); or iterative reconstruction. COMPARISON: CR PELAP PELVIS AP ONLY 08/06/2014 10:59 PM FINDINGS: Liver: Unremarkable. No mass. Gallbladder and bile ducts: Normal. No calcified stones. No ductal dilation. Pancreas: Normal. No ductal dilation. Spleen: Normal. No splenomegaly. Adrenal glands: Normal. No mass. Kidneys and ureters: Unremarkable. No calculi or hydronephrosis. Stomach and bowel: Unremarkable. No obstruction. No inflammatory changes or mucosal thickening. Appendix: No evidence of appendicitis. Intraperitoneal space: No free air. No significant fluid collection. Vasculature: Unremarkable. No abdominal aortic aneurysm. Lymph nodes: Unremarkable. No enlarged lymph nodes. Urinary bladder: Unremarkable as visualized. Reproductive: Mild asymmetric enlargement of the left ovary measuring 3.8 cm. Ovaries and adnexa are otherwise unremarkable. No adnexal edema, inflammatory changes, or hydrosalpinx. Bones/joints: There are advanced degenerative changes in the spine and pelvis. Soft tissues: Unremarkable. IMPRESSION: 1. No acute findings. No bowel obstruction or inflammatory changes. 2. Asymmetric enlargement of the left ovary of uncertain significance. Consider pelvic ultrasound follow-up if clinically indicated.
[2021-03-30 01:42] LABS: Microscopic, Urine URINE MICROSCOPIC (MICROSCOPIC)
[2021-03-30 01:47] LABS: Appearance,Urine CLEAR (Clear); Bilirubin,Urine Negative (Negative); Blood, Urine 1+ (Negative); Color,Urine YELLOW (Yellow); Glucose,Urine (UA) 1+ (Negative); Ketones,Urine Negative (Negative); Leukocyte Esterase,Urine Negative (Negative); Nitrate,Urine Negative (Negative); Protein,Urine 3+ (Negative); Urobilinogen,Urine 0.2 EU/dl (0.2)
[2021-03-30 02:30] LABS: Troponin I 0.02 ng/ml (0.00-0.034)
== END 2021-03-30 03:16 | disposition home or self-care (01) ==
PROVIDERS: Emergency Provider Emergency Medicine; PCP Nurse Practitioner Family
DX: R07.9 Chest pain, unspecified (principal); I25.118 Atherosclerotic heart disease of native coronary artery with other forms of angina pectoris; N28.9 Disorder of kidney and ureter, unspecified; F41.8 Other specified anxiety disorders; E11.9 Type 2 diabetes mellitus without complications; I10 Essential (primary) hypertension; K21.9 Gastro-esophageal reflux disease without esophagitis; E78.5 Hyperlipidemia, unspecified; F17.210 Nicotine dependence, cigarettes, uncomplicated; Z79.899 Other long term (current) drug therapy
CPT/HCPCS: 71046; 74176; 80048; 80076; 81001; 82150; 83690; 83735; 83880; 84145; 84484; 85025; 85651; 86140; 93005; 96365; 96375; 99283; J2405

== ENCOUNTER → 2021-04-03 12:55 | Outpatient (CLI) | payer MEDICAID, SELFPAY ==
[2021-04-03 12:58] LABS: Microscopic, Urine URINE MICROSCOPIC (MICROSCOPIC)
[2021-04-03 13:45] LABS: Basophils # 0.1 K/mm3 (0-0.2); Basophils % 0.7 % (0.1-2.0); Eosinophils # 0.4 K/mm3 (0.0-0.4); Hematocrit 29.2 % (37.0-47.0); Hemoglobin 9.6 g/dL (12.2-16.2); Lymphocytes # 2.1 K/mm3 (0.7-4.5); Lymphocytes % 21.7 % (10-50); Mean Corpuscular HGB Conc 32.9 g/dL (31.8-35.4); Mean Corpuscular Hemoglobin 26.8 pg (27.0-31.2); Mean Corpuscular Volume 81.6 fl (81-99); Monocytes # 0.4 K/mm3 (0.1-1.0); Monocytes % 3.7 % (1.7-9.3); Neutrophils # 6.7 K/mm3 (1.8-7.8); Neutrophils % 69.9 % (37.0-80.0); Platelet Count 260 K/mm3 (142-424); Red Blood Count 3.58 M/mm3 (4.20-5.40); Red Cell Distribution Width 16.3 % (11.5-17.5); White Blood Count 9.7 K/mm3 (4.8-10.8)
[2021-04-03 14:08] LABS: Appearance,Urine CLEAR (Clear); Bilirubin,Urine Negative (Negative); Blood, Urine 1+ (Negative); Color,Urine YELLOW (Yellow); Glucose,Urine (UA) 1+ (Negative); Ketones,Urine Negative (Negative); Leukocyte Esterase,Urine Negative (Negative); Nitrate,Urine Negative (Negative); PH,Urine 6.5 (5.0-8.5); Protein,Urine 3+ (Negative); Urobilinogen,Urine 0.2 EU/dl (0.2)
[2021-04-03 14:41] LABS: Creatinine,Urine Random 58 mg/dL (Not Estab.)
[2021-04-03 15:07] LABS: Bacteria,Urine Trace /lpf; RBC,Urine Occasional #/hpf (0-3); Squamous Epithelial Cell,Urine Occasional #/hpf (0-5); WBC,Urine Occasional #/hpf (0-3)
[2021-04-03 16:09] LABS: Albumin Level 3.1 g/dl (3.5-5.0); Anion Gap 9.3 mEq/L (5-15); Blood Urea Nitrogen 30 mg/dl (7-17); Calcium 8.3 mg/dl (8.4-10.2); Carbon Dioxide 23 mmol/L (22.0-30.0); Chloride 108 mmol/L (98-107); Estimated Glomerular Filt Rate 22 ml/min (>60); GFR (African American) 26 ML/MIN (>60); Glucose 133 mg/dl (74-100); Phosphorous 4.6 mg/dl (2.5-4.5); Potassium 5.3 mmoL/L (3.5-5.1); Sodium 135 mmol/L (136-145)
[2021-04-03 16:21] LABS: Intact Parathyroid Hormone 256.1 pg/mL (7.5-53.5)
[2021-04-03 16:26] LABS: 25-OH Vitamin D, Total 13.8 ng/mL (30-100)
[2021-04-03 17:06] LABS: Total Protein,Urine Random > 600.0 mg/dL (0.0-12.0)
== END ==
PROVIDERS: Visit Provider Internal Medicine Nephrology
DX: N18.4 Chronic kidney disease, stage 4 (severe) (principal)
CPT/HCPCS: 36415; 80069; 81001; 82306; 82570; 83970; 84155; 85025

== ENCOUNTER → 2021-04-09 18:54 | Outpatient (CLI) | payer MEDICAID, SELFPAY ==
[2021-04-09 19:43] LABS: Anion Gap 13.8 mEq/L (5-15); Blood Urea Nitrogen 28 mg/dl (7-17); Calcium 9.5 mg/dl (8.4-10.2); Carbon Dioxide 23 mmol/L (22.0-30.0); Chloride 108 mmol/L (98-107); Estimated Glomerular Filt Rate 23 ml/min (>60); GFR (African American) 28 ML/MIN (>60); Glucose 167 mg/dl (74-100); Potassium 5.8 mmoL/L (3.5-5.1); Sodium 139 mmol/L (136-145)
== END ==
PROVIDERS: Visit Provider Nurse Practitioner Family
DX: R79.89 Other specified abnormal findings of blood chemistry (principal)
CPT/HCPCS: 80048

== ENCOUNTER → 2021-06-12 15:10 | Outpatient (CLI) | payer MEDICAID, SELFPAY ==
[2021-06-12 12:54] VITALS: BMI 38.3
[2021-06-12 16:00] LABS: Albumin Level 3.5 g/dl (3.5-5.0); Anion Gap 11.6 mEq/L (5-15); Blood Urea Nitrogen 32 mg/dl (7-17); Calcium 8.4 mg/dl (8.4-10.2); Carbon Dioxide 21 mmol/L (22.0-30.0); Chloride 111 mmol/L (98-107); Creatinine Clearance Estimated 46 mL/min (50-200); Estimated Glomerular Filt Rate 21 ml/min (>60); GFR (African American) 25 ML/MIN (>60); Glucose 118 mg/dl (74-100); Phosphorous 4.5 mg/dl (2.5-4.5); Potassium 5.6 mmoL/L (3.5-5.1); Sodium 138 mmol/L (136-145)
== END ==
PROVIDERS: PCP Nurse Practitioner Family; Visit Provider Nurse Practitioner Family
DX: Z71.3 Dietary counseling and surveillance (principal); E11.9 Type 2 diabetes mellitus without complications; Z79.4 Long term (current) use of insulin
CPT/HCPCS: 36415; 80069; 97802

== ENCOUNTER → 2021-06-17 14:25 | Outpatient (CLI) | payer MEDICAID, SELFPAY ==
[2021-06-17 14:50] LABS: Microscopic, Urine URINE MICROSCOPIC (MICROSCOPIC)
[2021-06-17 15:18] LABS: Hematocrit 34.7 % (37.0-47.0); Mean Corpuscular HGB Conc 31.8 g/dL (31.8-35.4); Mean Corpuscular Hemoglobin 25.9 pg (27.0-31.2); Mean Corpuscular Volume 81.5 fl (81-99); Platelet Count 348 K/mm3 (142-424); Red Blood Count 4.25 M/mm3 (4.20-5.40); Red Cell Distribution Width 16.5 % (11.5-17.5); White Blood Count 10.2 K/mm3 (4.8-10.8)
[2021-06-17 15:55] LABS: Albumin Level 3.8 g/dl (3.5-5.0); Blood Urea Nitrogen 27 mg/dl (7-17); Calcium 9.3 mg/dl (8.4-10.2); Carbon Dioxide 25 mmol/L (22.0-30.0); Chloride 107 mmol/L (98-107); Estimated Glomerular Filt Rate 22 ml/min (>60); GFR (African American) 26 ML/MIN (>60); Glucose 116 mg/dl (74-100); Phosphorous 5.2 mg/dl (2.5-4.5); Sodium 139 mmol/L (136-145)
[2021-06-17 16:07] LABS: Intact Parathyroid Hormone 78.6 pg/mL (7.5-53.5)
[2021-06-17 19:21] LABS: Appearance,Urine CLEAR (Clear); Bilirubin,Urine Negative (Negative); Blood, Urine 1+ (Negative); Color,Urine YELLOW (Yellow); Glucose,Urine (UA) 1+ (Negative); Ketones,Urine Negative (Negative); Leukocyte Esterase,Urine Negative (Negative); Nitrate,Urine Negative (Negative); PH,Urine 6.5 (5.0-8.5); Protein,Urine 3+ (Negative); Urobilinogen,Urine 0.2 EU/dl (0.2)
[2021-06-17 20:39] LABS: Bacteria,Urine 1+ /lpf; RBC,Urine Occasional #/hpf (0-3)
[2021-06-17 21:14] LABS: Creatinine,Urine Random 75 mg/dL (Not Estab.)
[2021-06-24 16:17] LABS: 1,25 Dihydroxy Vitamin D 16 pg/mL (.); 1,25-Dihydroxy, Vitamin D-2 <10 pg/mL (.); 1,25-Dihydroxy, Vitamin D-3 15 pg/mL (.)
== END ==
PROVIDERS: Visit Provider Internal Medicine Nephrology
DX: N18.4 Chronic kidney disease, stage 4 (severe) (principal)
CPT/HCPCS: 80069; 81001; 82570; 82652; 83970; 84155; 85014; 85018; 85048; 85049

== ENCOUNTER 2021-06-28 14:09 | Emergency (ER) | payer MEDICAID, SELFPAY ==
[2021-06-28 14:20] VITALS: BP 151/74; PULSE 97; RESP 18; TEMP 36.3; O2SAT 99; BMI 37.1
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
[2021-06-28 15:10] VITALS: BP 151/74; PULSE 97; RESP 18; TEMP 36.3; O2SAT 99
== END 2021-06-28 15:12 | disposition home or self-care (01) ==
PROVIDERS: Emergency Provider Nurse Practitioner; PCP Nurse Practitioner Family
DX: M62.838 Other muscle spasm (principal); M79.602 Pain in left arm; M25.512 Pain in left shoulder; M54.2 Cervicalgia; R68.84 Jaw pain; I11.0 Hypertensive heart disease with heart failure; I50.30 Unspecified diastolic (congestive) heart failure; N28.9 Disorder of kidney and ureter, unspecified; I25.10 Atherosclerotic heart disease of native coronary artery without angina pectoris; E78.5 Hyperlipidemia, unspecified; K21.9 Gastro-esophageal reflux disease without esophagitis; E10.9 Type 1 diabetes mellitus without complications; M19.90 Unspecified osteoarthritis, unspecified site; E55.9 Vitamin D deficiency, unspecified; J44.9 Chronic obstructive pulmonary disease, unspecified; F32.A Depression, unspecified; F41.9 Anxiety disorder, unspecified; F17.210 Nicotine dependence, cigarettes, uncomplicated; Z79.4 Long term (current) use of insulin; Z79.51 Long term (current) use of inhaled steroids; Z79.899 Other long term (current) drug therapy; Z84.89 Family history of other specified conditions
CPT/HCPCS: 99213; G0463

== ENCOUNTER 2021-06-30 15:03 | Emergency (ER) | payer MEDICAID, SELFPAY ==
[2021-06-30 15:05] VITALS: BP 151/92; PULSE 97; RESP 18; TEMP 36.6; O2SAT 98; BMI 38.2
--- NOTE | 2021-06-30 15:18 | XR_ITS ---
PROCEDURE INFORMATION: Exam: XR Left Shoulder Exam date and time: 06/30/2021 3:18 PM Age: 46 years old Clinical indication: Injury or trauma; Fall; Blunt trauma (contusions or hematomas); Shoulder; Left; Additional info: Fell in shower TECHNIQUE: Imaging protocol: XR Left shoulder. Views: 2 or more views. COMPARISON: CR XR CHEST 2V 03/30/2021 12:05 AM FINDINGS: Bones/joints: There is no evidence of acute fracture.There is no evidence of malalignment or dislocation. Soft tissues: Normal. IMPRESSION: There is no evidence of acute fracture.There is no evidence of malalignment or dislocation.
--- NOTE | 2021-06-30 15:19 | HMH.EDUTC ---
[facility] [place] Clinical Impression: Shoulder pain, left Qualifiers: Chronicity: acute Qualified Code(s): M25.512 - Pain in left shoulder Disposition: Home, Self-Care Condition on Discharge: Good Instructions: DI for Shoulder Pain Additional Instructions: Weightbearing as tolerated rest Ice with cold pack for 20 minutes remove may repeat for comfort every hour Ibuprofen every 6 hours as needed for pain or inflammation. If needs something more you can take Tylenol every 4 hours as needed as long as her primary care has told he was okayed for you to take both. If improving any do not need to follow-up you can bring begin exercising 2-3 weeks after injury. Follow-up immediately if new or worsening symptoms or no noticeable improvement over the next 3-5 days. call ortho tomorrow call pcp for appointment to have more work up done Prescriptions: Diclofenac Sodium [Voltaren Arthritis Pain] 1 gm TP BID 5 Days #20 gm Prescription Printed Referrals: Dyllan Gil APRN [Primary Care Provider] - Time of Disposition: 15:39 Medical Decision Making - Tyshawn Inquiry Pt receiving controlled substance: No Vital Signs: 06/30/21 15:05 06/30/21 15:33 Temperature 97.8 F 97.8 F Temperature Source Oral Pulse Rate 97 H Pulse Rate [Right Brachial] 97 H Respiratory Rate 18 18 Blood Pressure 151/92 H Blood Pressure [Right Arm] 151/92 H Blood Pressure Mean [Right Arm] 111 Blood Pressure Source [Right Arm] Automatic Cuff Blood Pressure Position [Right Arm] Sitting 02 Sat by Pulse Oximetry 98 Oxygen Delivery Method Room Air Orders (Tests/Meds): ORDERS Category Date Time Status XR shoulder LT min 2V Stat Exams 06/30/21 15:[address] [facility] [place] - General Chief complaint: Urgent Treatment Center Stated complaint: pain left arm Time Seen by Provider: 06/30/21 15:20 Mode of Arrival: Ambulatory Source of Information: Patient Limitations: No Limitations Description of Symptoms (Recalled from Triage Doc. by RN): PATIENT C/O PAIN IN LEFT ARM AND SHOULDER. WAS SEEN IN [facility] ON 2 FOR SAME SYMPTOMS AND GIVEN MUSCLE RELAXER HEENT Symptoms (Recalled from RN notes): No Resp Symptoms (Recalled from RN notes): No Skin Symptoms (Recalled from RN notes): No MS Symptoms (Recalled from RN notes): Yes Functional Status (Recalled from RN notes): WNL - History of Present Illness Provider Complaint: 46 yr old female presents for left shoulder pain. pt states weds or thurs she was falling in the shower and caught herself on bar. pt states she was seen here and given muscle relaxers and has tried muscle creams but nothing is helping. - Related Data Home Medications Medication Instructions Recorded Confirmed liraglutide 0.6 mg/0.1 mL (18 mg/3 1.8 mg SQ DAILY ml 12/30/18 05/21/21 mL) subcutaneous pen injector carvediloL [Carvedilol 25mg Tab] 25 mg PO BID 04/06/20 05/21/21 Irbesartan 300 mg PO DAILY 04/07/20 05/21/21 insulin aspar prot-insulin aspart 55 unit SQ TID ml 01/21/21 05/21/21 100 unit/mL (70-30) subcutaneous pen amlodipine 10 mg tablet 10 mg PO tab 01/22/21 05/21/21 blood sugar diagnostic See Rx Instructions .ROUTE 01/22/21 05/21/21 .MEDSUPPLY #10 each cholecalciferol (vitamin D3) 50 50 mcg PO cap 01/22/21 05/21/21 mcg (2,000 unit) capsule sodium zirconium cyclosilicate 10 10 g PO each 01/22/21 05/21/21 gram oral powder packet blood-glucose transmitter See Rx Instructions .ROUTE 04/09/21 05/21/21 .MEDSUPPLY #1 each ergocalciferol (vitamin D2) 1,250 1,250 mcg PO cap 04/09/21 05/21/21 mcg (50,000 unit) capsule insulin human U-100 NPH-regulr 70 unit SQ ml 04/09/21 05/21/21 70-30 mix 100 unit/mL subcutaneous susp insulin syringe-needle U-100 1 mL See Rx Instructions .ROUTE 04/09/21 05/21/21 31 gauge x 15/64 .MEDSUPPLY #10 each insulin syringe-needle U-100 1 mL See Rx Instructions .ROUTE 04/09/21 05/21/21 31 gauge x 5/16 .MEDSUPPLY #10 each pen needle, diabetic 31 gauge x See Rx In
[2021-06-30 15:33] VITALS: BP 151/92; PULSE 97; RESP 18; TEMP 36.6; O2SAT 98
== END 2021-06-30 15:42 | disposition home or self-care (01) ==
PROVIDERS: Emergency Provider Nurse Practitioner Family; PCP Nurse Practitioner Family
DX: M25.512 Pain in left shoulder (principal); M79.602 Pain in left arm; M54.2 Cervicalgia; M54.9 Dorsalgia, unspecified; I11.0 Hypertensive heart disease with heart failure; I50.30 Unspecified diastolic (congestive) heart failure; N28.9 Disorder of kidney and ureter, unspecified; I25.10 Atherosclerotic heart disease of native coronary artery without angina pectoris; K21.9 Gastro-esophageal reflux disease without esophagitis; E78.5 Hyperlipidemia, unspecified; E10.8 Type 1 diabetes mellitus with unspecified complications; E55.9 Vitamin D deficiency, unspecified; M19.90 Unspecified osteoarthritis, unspecified site; J44.9 Chronic obstructive pulmonary disease, unspecified; F32.A Depression, unspecified; F41.9 Anxiety disorder, unspecified; F17.210 Nicotine dependence, cigarettes, uncomplicated; H26.9 Unspecified cataract; R06.00 Dyspnea, unspecified; Z79.1 Long term (current) use of non-steroidal anti-inflammatories (NSAID); Z79.52 Long term (current) use of systemic steroids; Z79.51 Long term (current) use of inhaled steroids; Z79.899 Other long term (current) drug therapy; Z88.8 Allergy status to other drugs, medicaments and biological substances; Z91.018 Allergy to other foods
CPT/HCPCS: 73030; 99213; G0463

== ENCOUNTER → 2021-07-08 13:12 | Outpatient (POV) | payer MEDICAID, SELFPAY | PROVIDERS: Visit Provider Internal Medicine Nephrology | DX: Z00.00 Encounter for general adult medical examination without abnormal findings (principal) ==

== ENCOUNTER 2021-07-15 02:42 | Emergency (ER) | payer MEDICAID, SELFPAY ==
--- NOTE | 2021-07-15 02:51 | ECG_ITS ---
APPROVED REPORT Exam: Resting ECG HR:102 bpm ECG Measurements Heart Rate 102 AXES WY 159 P 43 QRSd 95 QRS -49 QT 320 T 87 QTc 379 Conclusion SINUS TACHYCARDIA INCOMPLETE RIGHT BUNDLE BRANCH BLOCK [90+ ms QRS DURATION, TERMINAL R IN V1/V2, 40+ ms S IN I/aVL/V4/V5/V6] LEFT ANTERIOR FASCICULAR BLOCK [QRS AXIS <= -45, QR IN I, RS IN II] NONSPECIFIC T-WAVE ABNORMALITY ABNORMAL ECG UNCONFIRMED REPORT Electronically signed by : Demarcus Miranda MD 07/16/2021 16:43:31
[2021-07-15 03:05] VITALS: BP 152/109; PULSE 101; RESP 18; TEMP 36.8; O2SAT 96; BMI 38.2
--- NOTE | 2021-07-15 03:26 | XR_ITS ---
PROCEDURE INFORMATION: Exam: XR Chest Exam date and time: 07/15/2021 3:37 AM Age: 46 years old Clinical indication: Pain; Left-sided; Additional info: Cardiac TECHNIQUE: Imaging protocol: XR of the chest. Views: 2 views. COMPARISON: CR XR CHEST 2V 03/30/2021 12:05 AM FINDINGS: Lungs: Unremarkable. No consolidation. Pleural spaces: Unremarkable. No pleural effusion. No pneumothorax. Heart/Mediastinum: Unremarkable. No cardiomegaly. Bones/joints: Unremarkable. IMPRESSION: No acute findings.
--- NOTE | 2021-07-15 03:26 | CT_ITS ---
PROCEDURE INFORMATION: Exam: CT Cervical Spine Without Contrast Exam date and time: 07/15/2021 3:45 AM Age: 46 years old Clinical indication: Other: Pain radiating from neck down left arm; Additional info: Left arm paresthesia, numbness, pain TECHNIQUE: Imaging protocol: Computed tomography images of the cervical spine without contrast. Radiation optimization: All CT scans at this facility use at least one of these dose optimization techniques: automated exposure control; mA and/or kV adjustment per patient size (includes targeted exams where dose is matched to clinical indication); or iterative reconstruction. COMPARISON: CR XR CHEST 2V 07/15/2021 3:37 AM FINDINGS: Vertebrae: No acute fracture. Normal alignment. C2-C3: No significant disc protrusion. No severe spinal canal stenosis. No significant neural foraminal narrowing. C3-C4: No significant disc protrusion. No severe spinal canal stenosis. No significant neural foraminal narrowing. C4-C5: No significant disc protrusion. No severe spinal canal stenosis. No significant neural foraminal narrowing. C5-C6: No significant disc protrusion. No severe spinal canal stenosis. No significant neural foraminal narrowing. C6-C7: No significant disc protrusion. No severe spinal canal stenosis. No significant neural foraminal narrowing. C7-T1: No significant disc protrusion. No severe spinal canal stenosis. No significant neural foraminal narrowing. Soft tissues: Unremarkable. Lungs: Lung apices are normal. IMPRESSION: No acute findings.
[2021-07-15 03:38] LABS: Basophils # 0.1 K/mm3 (0-0.2); Basophils % 0.7 % (0.1-2.0); Eosinophils # 0.4 K/mm3 (0.0-0.4); Eosinophils % 2.6 % (0.1-12.0); Hematocrit 31.7 % (37.0-47.0); Lymphocytes # 1.7 K/mm3 (0.7-4.5); Lymphocytes % 10.8 % (10-50); Mean Corpuscular HGB Conc 31.6 g/dL (31.8-35.4); Mean Corpuscular Hemoglobin 26.4 pg (27.0-31.2); Mean Corpuscular Volume 83.6 fl (81-99); Mean Platelet Volume 9.4 fl (7.4-10.4); Monocytes # 0.6 K/mm3 (0.1-1.0); Monocytes % 3.6 % (1.7-9.3); Neutrophils # 12.8 K/mm3 (1.8-7.8); Neutrophils % 82.3 % (37.0-80.0); Platelet Count 313 K/mm3 (142-424); Red Cell Distribution Width 18.1 % (11.5-17.5); White Blood Count 15.5 K/mm3 (4.8-10.8)
[2021-07-15 03:40] LABS: MANUAL DIFFERENTIAL MANUAL DIFFERENTIAL (MANUAL DIFF)
[2021-07-15 03:43] LABS: Anion Gap 10.5 mEq/L (5-15); Blood Urea Nitrogen 40 mg/dl (7-17); Carbon Dioxide 19 mmol/L (22.0-30.0); Chloride 114 mmol/L (98-107); Creatinine Clearance Estimated 55 mL/min (50-200); Estimated Glomerular Filt Rate 25 ml/min (>60); GFR (African American) 31 ML/MIN (>60); Glucose 102 mg/dl (74-100); Potassium 5.5 mmoL/L (3.5-5.1); Sodium 138 mmol/L (136-145)
[2021-07-15 03:48] LABS: C-Reactive Protein 34.4 mg/L (0-4)
[2021-07-15 03:53] LABS: Anisocytosis 1+; Eosinophils % 1 % (0-3); Hypochromasia 1+; Lymphocytes % 16 % (10-50); Monocytes % 6 % (2-9); Neutrophils % 74 % (42-76); Platelet Estimate Normal; Rouleaux 2+; Total Cells Counted 100
[2021-07-15 04:00] LABS: Troponin I < 0.01 ng/ml (0.00-0.034)
[2021-07-15 04:02] LABS: Erythrocyte Sedimentation Rate 133 mm/hr (0-20); Procalcitonin 0.108 ng/mL (0.0-2.0)
[2021-07-15 04:11] VITALS: BP 180/92; PULSE 98; O2SAT 96
[2021-07-15 04:30] VITALS: BP 184/102; PULSE 96; O2SAT 96
--- NOTE | 2021-07-15 04:54 | PC.NURSE ---
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 notified pt @ this time
[2021-07-15 05:00] VITALS: BP 190/103; PULSE 95; O2SAT 97
--- NOTE | 2021-07-15 05:33 | HMH.EDGENADL ---
ED Disposition Clinical Impression: Cervical radicular pain, Renal insufficiency, Obesity (BMI 30-39.9) HTN (hypertension) Qualifiers: Hypertension type: primary hypertension Qualified Code(s): I10 - Essential (primary) hypertension Disposition: Home, Self-Care Condition on Discharge: Fair Instructions: DI for Acute Pain -- Adult Additional Instructions: see pcp this week Referrals: Dyllan Gil APRN [Primary Care Provider] - - Critical Care Critical Care Time: No Attestation: On 07/15/21, the high probability of a clinically significant, sudden or life threatening deterioration of the following system(s) required my full and direct attention, intervention and personal management. The time I documented below is in addition to time spent performing reported procedures but includes the following listed in this critical care notation. Medical Decision Making - Medical Records Medical records reviewed: Yes: I reviewed the patient's medical records. - Tyshawn Inquiry Pt receiving controlled substance: No Vital Signs: 07/15/21 03:05 07/15/21 04:11 07/15/21 04:30 Temperature 98.3 F Temperature Source Oral Pulse Rate 98 H 96 H Pulse Rate [Right Apical] 101 H Respiratory Rate 18 Blood Pressure 180/92 H 184/102 H Blood Pressure [Right Arm] 152/109 H Blood Pressure Mean 146 129 Blood Pressure Mean [Right Arm] 123 Blood Pressure Source [Right Arm] Automatic Cuff Blood Pressure Position [Right Arm] Sitting 02 Sat by Pulse Oximetry 96 96 96 Oxygen Delivery Method Room Air 07/15/21 05:00 Temperature Temperature Source Pulse Rate 95 H Pulse Rate [Right Apical] Respiratory Rate Blood Pressure 190/103 H Blood Pressure [Right Arm] Blood Pressure Mean 122 Blood Pressure Mean [Right Arm] Blood Pressure Source [Right Arm] Blood Pressure Position [Right Arm] 02 Sat by Pulse Oximetry 97 Oxygen Delivery Method - Lab Data Lab results reviewed: Yes: I reviewed the patient's lab results. Lab Results 07/15/21 02:50: WBC 15.5 H, RBC 3.80 L, Hgb 10.0 L, Hct 31.7 L, MCV 83.6, MCH 26.4 L, MCHC 31.6 L, RDW 18.1 H, Plt Count 313, MPV 9.4, Neut % (Auto) 82.3 H, Lymph % (Auto) 10.8, Bryan % (Auto) 3.6, Eos % (Auto) 2.6, Baso % (Auto) 0.7, Neut # (Auto) 12.8 H, Lymph # (Auto) 1.7, Bryan # (Auto) 0.6, Eos # (Auto) 0.4, Baso # (Auto) 0.1, Total Counted 100, Neutrophils % (Manual) 74, Band Neutrophils % 3.0, Lymphocytes % (Manual) 16, Monocytes % (Manual) 6, Eosinophils % (Manual) 1, Platelet Estimate Normal, Hypochromasia 1+, Anisocytosis 1+, Rouleaux 2+, ESR 133 H 07/15/21 02:50: Sodium 138, Potassium 5.5 H, Chloride 114 H, Carbon Dioxide 19 L, Anion Gap 10.5, BUN 40 H, Creatinine 2.10 H, Estimated Creat Clear 55, Estimated GFR 25 L, Est GFR ( Amer) 31 L, Glucose 102 H, Calcium 8.0 L, Magnesium 2.0, Troponin I < 0.01, C-Reactive Protein 34.4 H, Procalcitonin 0.108 Result diagrams: 07/15/21 02:50 07/15/21 02:50 Orders (Tests/Meds): ED MEDICATIONS Generic Name Dose Route Start Last Admin Trade Name Freq PRN Reason Stop Dose Admin Lactated Ringer's 1,000 mls @ 999 mls/hr 07/15/21 03:30 07/15/21 03:38 Lactated Ringer's 1000 Ml Bag IV 07/15/21 04:30 999 mls/hr .Q1H1M DULCE MARIA Administration ORDERS Category Date Time Status Troponin I Q3H Lab 07/15/21 06:30 Ordered Troponin I Q3H Lab 07/15/21 09:30 Ordered - Radiology Data #1 Image(s): Chest Image Reviewed: Yes I have reviewed radiologist's interpretation Preliminary Findings: Normal/NAD - CT Data CT Scan: C-Spine Time Received: 05:[address] Reviewed: Yes: I have viewed the radiologist's interpretation Preliminary Findings: Normal/NAD, No Fracture Seen - ECG Data Tracing #1 Arrhythmias present: sinus tach Ischemic changes: non-specific ST-T wave changes - JAMIL Score for Non-Stemi Age of Patient: 40-49 years old Heart Rate: 90-109 bpm Systolic Blood Pressure: 140-159 mmHg Serum Creatinine:
[2021-07-15 05:55] VITALS: BP 188/100; PULSE 87; RESP 19; TEMP 36.9; O2SAT 97
== END 2021-07-15 06:14 | disposition home or self-care (01) ==
PROVIDERS: Emergency Provider Emergency Medicine; PCP Nurse Practitioner Family
DX: M54.12 Radiculopathy, cervical region (principal); N28.9 Disorder of kidney and ureter, unspecified; I10 Essential (primary) hypertension; E11.9 Type 2 diabetes mellitus without complications; J44.9 Chronic obstructive pulmonary disease, unspecified; I25.10 Atherosclerotic heart disease of native coronary artery without angina pectoris; F41.8 Other specified anxiety disorders; F17.210 Nicotine dependence, cigarettes, uncomplicated; Z79.899 Other long term (current) drug therapy
CPT/HCPCS: 71046; 72125; 80048; 83735; 84145; 84484; 85007; 85025; 85651; 86140; 93005; 96360; 96365; 99284

== ENCOUNTER → 2021-08-14 12:28 | Outpatient (CLI) | payer MEDICAID, SELFPAY ==
--- NOTE | 2021-08-14 12:32 | XR_ITS ---
FINAL REPORT CLINICAL HISTORY: shoulder pain COMPARISON: June 30, 2021 FINDINGS: LEFT SHOULDER 3 views demonstrate no acute fracture or dislocation. There is mild degenerative change. There is a lucency in the humeral head which is stable measuring 13 mm. This may represent a cyst.. The visualized bony structures are well aligned. No soft tissue abnormality is seen. IMPRESSION: No acute process. Stable lucency in the humeral head may represent a cyst. Reviewed, Interpreted and Dictated by Jong Diaz III, MD Transcribed by Shannon Connelly Authenticated by Jong Diaz III, MD on 08/14/2021 01:37:01 PM [facility]
== END ==
PROVIDERS: PCP Nurse Practitioner Family; Visit Provider Orthopaedic Surgery
DX: M25.512 Pain in left shoulder (principal)
CPT/HCPCS: 73030

== ENCOUNTER → 2021-08-28 09:14 | Outpatient (CLI) | payer MEDICAID, SELFPAY ==
[2021-08-28 09:23] LABS: Microscopic, Urine URINE MICROSCOPIC (MICROSCOPIC)
[2021-08-28 09:48] LABS: Appearance,Urine CLEAR (Clear); Bilirubin,Urine Negative (Negative); Blood, Urine 1+ (Negative); Color,Urine YELLOW (Yellow); Glucose,Urine (UA) 1+ (Negative); Ketones,Urine Negative (Negative); Leukocyte Esterase,Urine Negative (Negative); Nitrate,Urine Negative (Negative); Protein,Urine 3+ (Negative); Urobilinogen,Urine 0.2 EU/dl (0.2)
[2021-08-28 09:56] LABS: Hematocrit 33.4 % (37.0-47.0); Hemoglobin 10.7 g/dL (12.2-16.2); Mean Corpuscular HGB Conc 32.2 g/dL (31.8-35.4); Mean Corpuscular Hemoglobin 26.7 pg (27.0-31.2); Mean Corpuscular Volume 83.1 fl (81-99); Platelet Count 334 K/mm3 (142-424); Red Blood Count 4.02 M/mm3 (4.20-5.40); Red Cell Distribution Width 18.6 % (11.5-17.5); White Blood Count 12.5 K/mm3 (4.8-10.8)
[2021-08-28 10:06] LABS: Albumin Level 3.4 g/dl (3.5-5.0); Anion Gap 11.2 mEq/L (5-15); Blood Urea Nitrogen 44 mg/dl (7-17); Calcium 8.7 mg/dl (8.4-10.2); Carbon Dioxide 24 mmol/L (22.0-30.0); Chloride 111 mmol/L (98-107); Estimated Glomerular Filt Rate 21 ml/min (>60); GFR (African American) 25 ML/MIN (>60); Glucose 64 mg/dl (74-100); Phosphorous 5.3 mg/dl (2.5-4.5); Potassium 5.2 mmoL/L (3.5-5.1); Sodium 141 mmol/L (136-145)
[2021-08-28 10:27] LABS: Bacteria,Urine Trace /lpf; Squamous Epithelial Cell,Urine Occasional #/hpf (0-5); WBC,Urine Occasional #/hpf (0-3)
[2021-08-28 15:29] LABS: Creatinine,Urine Random 68 mg/dL (Not Estab.)
== END ==
PROVIDERS: PCP Nurse Practitioner Family; Visit Provider Internal Medicine Nephrology
DX: N18.4 Chronic kidney disease, stage 4 (severe) (principal)
CPT/HCPCS: 36415; 80069; 81001; 82570; 84155; 85014; 85018; 85048; 85049

== ENCOUNTER → 2021-09-02 13:34 | Outpatient (POV) | payer MEDICAID, SELFPAY | PROVIDERS: Visit Provider Internal Medicine Nephrology | DX: Z00.00 Encounter for general adult medical examination without abnormal findings (principal) ==

== ENCOUNTER 2021-10-01 15:00 | Outpatient (RCR) | payer MEDICAID, SELFPAY ==
--- NOTE | 2021-08-28 09:16 | HMH.PTOPWND ---
Rehab Outpt Wound Evaluation Rehab OP Wound Evaluation Start: 08/28/21 08:47 Freq: Status: Active Protocol: Document 08/28/21 09:08 BARBIE (Rec: 08/28/21 09:16 PHOLETICIA [id number]) Electronically Signed By Edi Schulte, PT 08/28/21 09:08 Subjective/History History History Pt is 46 yowf who presents with c/o B LE edema for many years, worse x ~ 2 wks. She reports c/o cramps and dayna horses in B lower legs at night. She has been treated at this clinic previously and is questionably compliant with her home treatment. She has lymphedema pump for home use already. She has significant co- morbidities of CAD, CKD, DM-II with neuropathy, anxiety, depression, and is disabled. Subjective Subjective Pt c/o 8/10 pain at night with cramping and 2/4 tenderness to palpation in B lower legs. 1+ pitting edema noted to B lower legs at this time. Pt would likely benefit from JOSEPH testign due to her hx and co- morbid conditions. Lymphedema Eval Classification of Lymphedema Secondary Lymphedema Yes Stemmer's sign Stemmer's Sign no Stage of Lymphedema Lymphedema stages Stage I (Pitting edema, reduces w/ elevation, no fibrosis) Skin Changes Dry Skin Yes Other Changes Yes Pain Scale Pain Scale (0-10) 8 Affected Extremities Areas Affected by Lymphedema/Edema Right Lower Extremity,Left Lower Extremity Manual Lymphatic Drainage Treatment Area MLD Treatment Area Right Lower Extremity,Left Lower Extremity Wound Problems/Impairments Impairments Problems/Impairmments Palpation Tenderness,Increased Edema,Lymphedema Present, Subjective C/O Pain,Impaired Self Care/Self Management Prognosis Rehab Potential Fair Comment Pt compliance has been an issue in the past and it is questionable as to whether or not she is using her at home
--- NOTE | 2021-09-27 16:19 | HMH.RHREAS ---
Rehab Reassessment Rehab OP Re-assessment Start: 09/27/21 16:11 Freq: Status: Active Protocol: Document 09/27/21 16:16 BARBIE (Rec: 09/27/21 16:19 PHOLETICIA [id number]) Electronically Signed By Edi Schulte, PT 09/27/21 16:16 Rehab Re-assessment Subjective Subjective Pt reports she has been experiencign fairly consistent cramping, worse in her L calf , every morning before waking. She states, I'm suppsoed to start dialysis for my kidneys and my doctor thinks that is causing it. Pt is present for her 1st visit since initial evaluation 30 days ago. Objective Objective Notes Minimal pitting edema noted to posterior L lower leg, 1+. Currently pain is 0/10. Assessment Progress Assessment Slower Than Expected Assessment Notes Pt has had significant changes in status with now requiring dialysis 3 days/wk as an outpatient. SHe currently has minimal edema and will be best served by continued home treatment independently due to transportation issues. Patient goals met none Goals Not Met all Revised Goals none Plan Plan Will D/c Pt at this time. Frequency of Therapy 0 Duration of therapy 0 Time and Billing Re-Eval Time 14 Re-Eval Billing Units 1 PHYSICIAN CERTIFICATION: I certify the specified therapy services for Melanie Healy are required, authorized, and reviewed every 30 days.
== END 2021-10-01 15:05 | disposition home or self-care (01) ==
LOC: PT 15:00
PROVIDERS: PCP Nurse Practitioner Family; Visit Provider Nurse Practitioner Family
DX: R60.0 Localized edema (principal)
CPT/HCPCS: 97162; 97164; 97760

== ENCOUNTER 2021-10-10 14:00 | Outpatient (RCR) | payer MEDICAID, SELFPAY ==
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
== END 2021-10-10 14:05 | disposition home or self-care (01) ==
LOC: OT 14:00
PROVIDERS: PCP Nurse Practitioner Family; Visit Provider Nurse Practitioner Family
DX: M25.512 Pain in left shoulder (principal)
CPT/HCPCS: 97010; 97014; 97035; 97110; 97140; 97164; 97165; 97530; G0283

== ENCOUNTER 2021-10-10 14:20 | Outpatient (RCR) | payer MEDICAID, SELFPAY | END 2021-10-10 15:30 | disposition home or self-care (01) | LOC: OT 14:20 | PROVIDERS: Visit Provider Orthopaedic Surgery | DX: G56.02 Carpal tunnel syndrome, left upper limb (principal) ==

== ENCOUNTER → 2021-12-19 09:55 | Outpatient (CLI) | payer MEDICAID, SELFPAY ==
[2021-12-19 10:15] LABS: Microscopic, Urine URINE MICROSCOPIC (MICROSCOPIC)
[2021-12-19 10:37] LABS: Hematocrit 33.8 % (37.0-47.0); Hemoglobin 10.4 g/dL (12.2-16.2); Mean Corpuscular HGB Conc 30.8 g/dL (31.8-35.4); Mean Corpuscular Hemoglobin 26.7 pg (27.0-31.2); Mean Corpuscular Volume 86.8 fl (81-99); Platelet Count 294 K/mm3 (142-424); Red Cell Distribution Width 16.9 % (11.5-17.5); White Blood Count 10.5 K/mm3 (4.8-10.8)
[2021-12-19 10:39] LABS: Appearance,Urine CLEAR (Clear); Bilirubin,Urine Negative (Negative); Blood, Urine TRACE-I (Negative); Color,Urine YELLOW (Yellow); Glucose,Urine (UA) 1+ (Negative); Ketones,Urine Negative (Negative); Leukocyte Esterase,Urine Negative (Negative); Nitrate,Urine Negative (Negative); Protein,Urine 2+ (Negative); Urobilinogen,Urine 0.2 EU/dl (0.2)
[2021-12-19 10:57] LABS: Bacteria,Urine Trace /lpf
[2021-12-19 11:17] LABS: Albumin Level 3.5 g/dl (3.5-5.0); Anion Gap 13.7 mEq/L (5-15); Blood Urea Nitrogen 47 mg/dl (7-17); Calcium 8.8 mg/dl (8.4-10.2); Carbon Dioxide 23 mmol/L (22.0-30.0); Chloride 106 mmol/L (98-107); Estimated Glomerular Filt Rate 14 ml/min (>60); GFR (African American) 18 ML/MIN (>60); Glucose 184 mg/dl (74-100); Phosphorous 5.8 mg/dl (2.5-4.5); Potassium 4.7 mmoL/L (3.5-5.1); Sodium 138 mmol/L (136-145)
[2021-12-19 11:42] LABS: Creatinine,Urine Random 93 mg/dL (Not Estab.)
== END ==
PROVIDERS: PCP Nurse Practitioner Family; Visit Provider Internal Medicine Nephrology
DX: N18.4 Chronic kidney disease, stage 4 (severe) (principal)
CPT/HCPCS: 36415; 80069; 81001; 82570; 84155; 85014; 85018; 85048; 85049

== ENCOUNTER → 2021-12-23 12:06 | Outpatient (POV) | payer MEDICAID, SELFPAY | PROVIDERS: Visit Provider Internal Medicine Nephrology | DX: Z00.00 Encounter for general adult medical examination without abnormal findings (principal) ==

== ENCOUNTER → 2022-01-02 12:47 | Outpatient (POV) | payer MEDICAID, SELFPAY ==
[2022-01-02 12:52] VITALS: BP 150/88; PULSE 94; RESP 20; BMI 38.2
--- NOTE | 2022-01-02 14:12 | EXP.PAIN.OV ---
HPI Data of Consult Patient: new to practice Consult date: 01/02/22 Requesting Physician: Aminata Kohli APRN Primary Care Provider: Dyllan Gil APRN Consult Narrative Reason for consult: Low back pain, bilateral leg pain History of present illness: Ms. Healy is a 46 year old female who presents today as a new patient. She is a referral from Dr. Dyllan Gil's office. Today she rates her pain a 6 out of 10 and states it is primarily in her low back that radiates into bilateral lower extremities. She states this has been going on for the last couple of years and is just progressively gotten worse over time. 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 Patient describes this as a dull ache that worsens with increased activity. She states it is worse the longer she is up on her feet and that she does get some relief when sitting down. Patient does use Tylenol and ibuprofen as needed with minimal improvement of her symptoms. She states she also uses Bengay however this only provides some improvement and no long-lasting relief. Patient also states that heat does help and that she has tried exercises and stretching however this seems to make the pain worse. Patient has had physical therapy about a year ago and states this only provided minimal improvement. Patient does have a history of kidney disease due to type 2 diabetes. Patient states she is well controlled currently with her diabetes, her last A1c was 7.2. Her Tyshawn is [id number]. It is been reviewed and appropriate. CC: Aminata Kohli APRN [facility] Medical History (Updated 01/02/22 @ 14:26 by Aminata Kohli APRN) Back Pain CAD (coronary artery disease) Candidiasis, intertrigo COPD (chronic obstructive pulmonary disease) Diabetes mellitus Diastolic dysfunction Dyspnea GERD (gastroesophageal reflux disease) HTN (hypertension) Hyperlipidemia (~06/29/17) Leg swelling Memory Loss Neck pain Osteoarthritis Subungual hematoma of fifth toe of left foot Subungual hematoma of great toe of left foot Tobacco abuse Type 2 diabetes mellitus Vitamin D deficiency (~06/29/17) Family History (Updated 01/02/22 @ 13:01 by Shara Ledesma RN) Other No significant family history Social History (Updated 01/02/22 @ 13:01 by Shara Ledesma RN) Smoking Status: Current every day smoker tobacco type: cigarettes packs per day: 1 alcohol intake: never substance use type: denies use current occupational status: other Travel in the last 8 weeks: None household members: spouse housing: house number of children: 1 current occupational exposures/hazards: No caffeine: Yes (coffee) Review of Systems Review of Systems Review of systems:: pertinent systems reviewed and negative unless documented below Review of systems (narrative): Review of Systems: General: No recent weight changes, no fever, no sleep disturbances Respiratory: No cough, no shortness of air, no recurring pulmonary infections Cardiovascular/peripheral vascular: No chest pain, no palpitations, no edema, no shortness of breath Gastrointestinal: No new onset incontinence, normal bowel movements reported Genitourinary: No new onset incontinence Musculoskeletal: Low back pain, bilateral leg pain Psychiatric: [Normal mood/affect] Neurological: [Denies weakness in extremities], [denies balance issues] Meds Home Medications and Allergies Home Medications Medication Instructions Recorded Confirmed Type liraglutide 0.6 mg/0.1 mL (18 mg/3 1.8 mg SQ DAILY Diabetes 12/30/18 11/22/21 History mL) subcutaneous pen injector (Driftrock 2-Adrian) carvedilol 25 mg tablet 25 mg PO BID High blood pressure 04/06/20 11/22/21 History irbesartan 300 mg tablet 300 mg PO DAILY BLOOD PRESSURE 04/07/20 11/22/21 History amlodipine 10 mg tablet 10 mg PO DAILY Hypertension 01/22/
== END ==
PROVIDERS: PCP Nurse Practitioner Family; Visit Provider Nurse Practitioner Family
DX: M54.50 Low back pain, unspecified (principal); M79.604 Pain in right leg; M79.605 Pain in left leg; M46.1 Sacroiliitis, not elsewhere classified; M70.61 Trochanteric bursitis, right hip; M70.62 Trochanteric bursitis, left hip
CPT/HCPCS: 99202; G0463

== ENCOUNTER → 2022-01-16 14:12 | Outpatient (CLI) | payer MEDICAID, SELFPAY ==
--- NOTE | 2022-01-16 14:15 | MR_ITS ---
FINAL REPORT TECHNIQUE: Multiplanar imaging of the lumbar spine was obtained. CLINICAL HISTORY: LOWER BACK PAIN WITH RIGHT LEG PAIN X FEW MONTHS COMPARISON: No previous. FINDINGS: On the sagittal images, abnormal decrease signal is identified within the L5-S1 disc. Vertebrae are of normal height. No malalignment is seen. L1-2: No disc bulge protrusion. L2-3: No disc bulge protrusion. L3-4: No disc bulge protrusion. L4-5: No disc bulge protrusion. L5-S1: Small midline disc protrusion is present. There is associated annular tear. There is mild compromise the spinal canal. There is mild narrowing of the left L5-S1 neural foramen. IMPRESSION: 1. Midline disc protrusion L5-S1 with associated annular tear. Mild spinal canal compromise. Please correlate with any specific radicular symptoms. Authenticated and ERN
== END ==
PROVIDERS: PCP Nurse Practitioner Family; Visit Provider Nurse Practitioner Family
DX: M54.50 Low back pain, unspecified (principal)
CPT/HCPCS: 72148; 76376

== ENCOUNTER 2022-01-21 08:19 | Day surgery (SDC) | payer MEDICAID, SELFPAY ==
[2022-01-21 08:29] VITALS: BP 153/71; PULSE 89; RESP 18; TEMP 36.4; O2SAT 99; BMI 38.9
--- NOTE | 2022-01-21 10:12 | PC.NURSE ---
Pt spoke with provider. Procedure cancelled. Pt was discharged home.
--- NOTE | 2022-01-21 10:44 | A.OFFVIS_ITS ---
[facility] Pain Management SOAP Note Subjective:: Patient arrived today for bilateral diagnostic SI joint injections. However, after discussion with the patient regarding the injections she is not interested in injective therapy. Patient was discharged without incident. [facility] Medical History (Updated 01/21/22 @ 08:35 by Haley Gomez RN) Back Pain Bilateral carpal tunnel syndrome Bipolar II disorder CAD (coronary artery disease) Candidiasis, intertrigo COPD (chronic obstructive pulmonary disease) Diabetes mellitus Diastolic dysfunction Dyspnea GERD (gastroesophageal reflux disease) HTN (hypertension) Hydradenitis Hyperlipidemia (~06/29/17) Leg swelling Memory Loss Neck pain Osteoarthritis Renal disease Subungual hematoma of fifth toe of left foot Subungual hematoma of great toe of left foot Tobacco abuse Type 2 diabetes mellitus Vitamin D deficiency (~06/29/17) Surgical History (Updated 01/21/22 @ 08:32 by Haley Gomez RN) History of bilateral carpal tunnel release History of section History of incision and drainage Family History Other No significant family history Social History Smoking Status: Current every day smoker tobacco type: cigarettes packs per day: 1 quit status: considering quitting second hand exposure: No alcohol intake: never substance use type: denies use current occupational status: disabled and other Travel in the last 8 weeks: None adopted: No caregiver/support person: No foster care: No household members: spouse housing: apartment lives independently: Yes marital status: number of children: 1 number of grandchildren: 0 education level: high school service: No senior care: No current occupational exposures/hazards: No Hx Recent Travel: No sexually active: No caffeine: Yes (coffee) physical activity: none phil/sabianism: Rastafari special phil needs: No working smoke detector in home: Yes fire extinguisher in home: No carbon monox detector in home: No firearms in home: No do you feel safe at home: Yes
== END 2022-01-21 09:45 | disposition home or self-care (01) ==
LOC: SC.PAINP 08:20
PROVIDERS: PCP Nurse Practitioner Family; Visit Provider Nurse Anesthetist, Certified Registered
DX: M46.1 Sacroiliitis, not elsewhere classified (principal)
CPT/HCPCS: 99212; G0463

== ENCOUNTER → 2022-01-22 14:26 | Outpatient (POV) | payer MEDICAID, SELFPAY ==
[2022-01-22 14:28] VITALS: BP 179/95; PULSE 86; RESP 18; TEMP 36.3; O2SAT 96; BMI 38.7
--- NOTE | 2022-01-22 14:56 | EXP.PAIN.SOA ---
[facility] Pain Management SOAP Note Subjective:: Patient is a pleasant 46-year-old who presents today for follow-up of MRI of her lumbar spine. We are currently treating the patient for low back pain, bilateral hip pain, bilateral sacroiliitis, greater trochanteric bursitis bilateral hips. Today she rates her pain a 5 out of 10. She states the pain is in her low back with some hip pain. Patient denies any new trauma or injury. Patient denies any change to location or type of pain she experiences. Patient was scheduled for bilateral SI injection yesterday however she states her nerves/anxiety were really bothering her and so she decided against proceeding forward. Patient states that she has a allergy intolerance to steroids due to her elevating her sugar with her diabetes and she also states she has some cardiac related issues when she is taken steroids. Patient does continue to use [id number] Tylenol and ibuprofen as needed with minimal improvement of her symptoms. She also uses Bengay topical cream. Patient does at home exercising and stretching occasionally but often times has to stop due to making her pain symptoms worse. She does state that heat occasionally will provide some relief and that she did go to physical therapy about a year ago with minimal improvement. Patient also has a history of kidney disease her Tyshawn is [id number]. It has been reviewed and appropriate. Review of Systems: General: No recent weight changes, no fever, no sleep disturbances Respiratory: No cough, no shortness of air, no recurring pulmonary infections Cardiovascular/peripheral vascular: No chest pain, no palpitations, no edema, no shortness of breath Gastrointestinal: No new onset incontinence, normal bowel movements reported Genitourinary: No new onset incontinence Musculoskeletal: Low back pain Psychiatric: [Normal mood/affect] Neurological: [Denies weakness in extremities], [denies balance issues] Objective:: Physical Exam: General: Alert and oriented x3, no acute distress, pleasant and cooperative Lungs: Respirations even and unlabored, symmetrical chest expansion Eyes: PERRL Musculoskeletal: Flexion and extension of lumbar [spine] somewhat guarded secondary to pain, [antalgic gait noted]. Point tenderness along bilateral SI's and positive bilateral Nicolette's, Deidre's, Gaenslen's, compression and distraction exam Neurological: Speech clear, no gross sensory deficit Assessment:: Low back pain, bilateral hip pain, sacroiliitis, greater trochanteric bursitis Plan:: Patient continues to have significant pain in her low back and bilateral hips. Patient had limited range of motion of her lumbar spine and positive point tenderness along her bilateral SI's. She also had positive bilateral Nicolette's, Deidre's, Gaenslen's, compression and distraction exam during today's visit. At this time the patient is not interested in injective therapy. I have reviewed over with her regarding her MRI with findings of midline disc protrusion at L5-S1 with associated annular tear and mild spinal canal compromise. I will send this patient for referral with physical therapy at today's visit. We will follow-up with the patient in 1 month. Patient will return to clinic in 1 month for reevaluation of symptoms and follow-up. Patient has been instructed to contact the clinic with any concerns before the next appointment. Dr. Cuevas has reviewed this note and agrees with this plan of care. This note was dictated using voice recognition software and make contain errors or omissions. [facility] Medical History (Updated 01/21/22 @ 08:35 by Haley Gomez RN) Back Pain Bilateral carpal tunnel syndrome Bipolar II disorder CAD (coronary artery disease) Candidiasis, intertrigo COPD (chronic obstructive pulmonary disease) Diabetes mellitus Diastolic dysfunction Dyspnea GERD (gastroesophageal reflux disease) HTN (hypertension) Hydradenitis Hyperlipidemia (~06/29/17) Leg swelling Memor
== END ==
PROVIDERS: Visit Provider Nurse Practitioner Family
DX: M46.1 Sacroiliitis, not elsewhere classified (principal); M54.50 Low back pain, unspecified; M70.61 Trochanteric bursitis, right hip; M70.62 Trochanteric bursitis, left hip
CPT/HCPCS: 99212; G0463

== ENCOUNTER → 2022-01-22 15:05 | Outpatient (CLI) | payer MEDICAID, SELFPAY ==
[2022-01-22 16:12] LABS: Albumin Level 3.7 g/dl (3.5-5.0); Anion Gap 16.2 mEq/L (5-15); Blood Urea Nitrogen 35 mg/dl (7-17); Calcium 8.6 mg/dl (8.4-10.2); Carbon Dioxide 24 mmol/L (22.0-30.0); Chloride 105 mmol/L (98-107); Estimated Glomerular Filt Rate 19 ml/min (>60); GFR (African American) 23 ML/MIN (>60); Glucose 222 mg/dl (74-100); Potassium 5.2 mmoL/L (3.5-5.1); Sodium 140 mmol/L (136-145)
== END ==
PROVIDERS: PCP Nurse Practitioner Family; Visit Provider Internal Medicine Nephrology
DX: N17.9 Acute kidney failure, unspecified (principal); N18.4 Chronic kidney disease, stage 4 (severe); I12.9 Hypertensive chronic kidney disease with stage 1 through stage 4 chronic kidney disease, or unspecified chronic kidney disease; R80.1 Persistent proteinuria, unspecified
CPT/HCPCS: 36415; 80069

== ENCOUNTER → 2022-02-03 14:48 | Outpatient (POV) | payer MEDICAID, SELFPAY | PROVIDERS: Visit Provider Internal Medicine Nephrology | DX: Z00.00 Encounter for general adult medical examination without abnormal findings (principal) ==

== ENCOUNTER → 2022-03-23 13:58 | Outpatient (CLI) | payer MEDICAID, SELFPAY ==
[2022-03-23 14:08] LABS: Microscopic, Urine URINE MICROSCOPIC (MICROSCOPIC)
[2022-03-23 14:50] LABS: Hematocrit 34.7 % (37.0-47.0); Hemoglobin 10.9 g/dL (12.2-16.2); Mean Corpuscular HGB Conc 31.5 g/dL (31.8-35.4); Mean Corpuscular Hemoglobin 26.4 pg (27.0-31.2); Mean Corpuscular Volume 83.8 fl (81-99); Platelet Count 307 K/mm3 (142-424); Red Blood Count 4.14 M/mm3 (4.20-5.40); Red Cell Distribution Width 16.9 % (11.5-17.5); White Blood Count 10.9 K/mm3 (4.8-10.8)
[2022-03-23 14:59] LABS: Albumin Level 3.7 g/dl (3.5-5.0); Anion Gap 19.6 mEq/L (5-15); Blood Urea Nitrogen 46 mg/dl (7-17); Calcium 9.2 mg/dl (8.4-10.2); Carbon Dioxide 24 mmol/L (22.0-30.0); Chloride 100 mmol/L (98-107); Estimated Glomerular Filt Rate 13 ml/min (>60); GFR (African American) 16 ML/MIN (>60); Glucose 183 mg/dl (74-100); Phosphorous 4.4 mg/dl (2.5-4.5); Potassium 4.6 mmoL/L (3.5-5.1); Sodium 139 mmol/L (136-145)
[2022-03-23 15:17] LABS: 25-OH Vitamin D, Total 25.2 ng/mL (30-100)
[2022-03-23 15:19] LABS: Appearance,Urine CLEAR (Clear); Bilirubin,Urine Negative (Negative); Blood, Urine TRACE-I (Negative); Color,Urine YELLOW (Yellow); Glucose,Urine (UA) TRACE (Negative); Ketones,Urine Negative (Negative); Leukocyte Esterase,Urine Negative (Negative); Nitrate,Urine Negative (Negative); Protein,Urine 2+ (Negative); Specific Gravity, Urine 1.015 (1.005-1.030); Urobilinogen,Urine 0.2 EU/dl (0.2)
[2022-03-23 15:36] LABS: Creatinine,Urine Random 26 mg/dL (Not Estab.)
[2022-03-23 15:48] LABS: RBC,Urine Occasional #/hpf (0-3); Squamous Epithelial Cell,Urine Occasional #/hpf (0-5)
== END ==
PROVIDERS: PCP Nurse Practitioner Family; Visit Provider Internal Medicine Nephrology
DX: N18.4 Chronic kidney disease, stage 4 (severe) (principal)
CPT/HCPCS: 36415; 80069; 81001; 82306; 82570; 84155; 85014; 85018; 85048; 85049

== ENCOUNTER → 2022-06-04 13:43 | Outpatient (CLI) | payer MEDICAID, SELFPAY ==
[2022-06-04 14:10] LABS: Basophils # 0.1 K/mm3 (0-0.2); Basophils % 0.6 % (0.1-2.0); Eosinophils # 0.4 K/mm3 (0.0-0.4); Eosinophils % 4.7 % (0.1-12.0); Hematocrit 37.1 % (37.0-47.0); Hemoglobin 12.5 g/dL (12.2-16.2); Lymphocytes # 2.2 K/mm3 (0.7-4.5); Lymphocytes % 24.7 % (10-50); Mean Corpuscular HGB Conc 33.7 g/dL (31.8-35.4); Mean Corpuscular Hemoglobin 28.9 pg (27.0-31.2); Mean Corpuscular Volume 85.7 fl (81-99); Monocytes # 0.3 K/mm3 (0.1-1.0); Monocytes % 3.5 % (1.7-9.3); Neutrophils % 66.4 % (37.0-80.0); Platelet Count 221 K/mm3 (142-424); Red Blood Count 4.32 M/mm3 (4.20-5.40); Red Cell Distribution Width 17.8 % (11.5-17.5)
[2022-06-04 16:59] LABS: Albumin Level 3.6 g/dl (3.5-5.0); Anion Gap 9.5 mEq/L (5-15); Blood Urea Nitrogen 42 mg/dl (7-17); Carbon Dioxide 26 mmol/L (22.0-30.0); Chloride 112 mmol/L (98-107); Estimated Glomerular Filt Rate 16 ml/min (>60); GFR (African American) 19 ML/MIN (>60); Glucose 108 mg/dl (74-100); Phosphorous 3.6 mg/dl (2.5-4.5); Potassium 4.5 mmoL/L (3.5-5.1); Sodium 143 mmol/L (136-145)
== END ==
PROVIDERS: PCP Nurse Practitioner Family; Visit Provider Internal Medicine Nephrology
DX: N18.4 Chronic kidney disease, stage 4 (severe) (principal)
CPT/HCPCS: 36415; 80069; 85025

== ENCOUNTER → 2022-06-09 13:18 | Outpatient (POV) | payer MEDICAID, SELFPAY | PROVIDERS: Visit Provider Internal Medicine Nephrology | DX: Z00.00 Encounter for general adult medical examination without abnormal findings (principal) ==

== ENCOUNTER → 2022-07-08 15:09 | Outpatient (CLI) | payer MEDICAID, SELFPAY ==
[2022-07-08 16:12] VITALS: BMI 41.8
== END ==
PROVIDERS: PCP Nurse Practitioner Family; Visit Provider Nurse Practitioner Family
DX: Z71.3 Dietary counseling and surveillance (principal); E11.9 Type 2 diabetes mellitus without complications
CPT/HCPCS: 97802

== ENCOUNTER → 2022-07-21 14:44 | Outpatient (CLI) | payer MEDICAID, SELFPAY ==
--- NOTE | 2022-07-21 14:44 | MM_ITS ---
PROCEDURE INFORMATION: Exam: MG Bilateral Screening 3D Mammography Exam date and time: 07/21/2022 2:34 PM Age: 47 years old Clinical indication: Screening. No family history of breast cancer. TECHNIQUE: Imaging protocol: Bilateral Screening tomosynthesis and 2D mammography including computer-aided detection (CAD) when performed. COMPARISON: No relevant prior studies available.If prior mammograms are provided, I am happy to add an addendum. FINDINGS: MAMMOGRAPHY: Breast composition: There are scattered areas of fibroglandular density. Mass: None. Architectural distortion: None. Calcifications: No suspicious calcifications. Asymmetric density: None. Skin thickening: None. Axillary adenopathy: None. IMPRESSION: No mammographic evidence of malignancy. Annual screening is recommended unless otherwise clinically indicated. ASSESSMENT: BI-RADS Category 1: Negative
== END ==
PROVIDERS: PCP Nurse Practitioner Family; Visit Provider Nurse Practitioner Family
DX: Z12.31 Encounter for screening mammogram for malignant neoplasm of breast (principal)
CPT/HCPCS: 77063; 77067

== ENCOUNTER → 2022-07-28 13:35 | Outpatient (CLI) | payer MEDICAID, SELFPAY ==
[2022-07-28 14:59] LABS: Basophils % 0.4 % (0.1-2.0); Eosinophils # 0.5 K/mm3 (0.0-0.4); Eosinophils % 5.2 % (0.1-12.0); Hematocrit 35.1 % (37.0-47.0); Hemoglobin 10.8 g/dL (12.2-16.2); Lymphocytes # 1.4 K/mm3 (0.7-4.5); Lymphocytes % 16.3 % (10-50); Mean Corpuscular HGB Conc 30.8 g/dL (31.8-35.4); Mean Corpuscular Volume 87.7 fl (81-99); Mean Platelet Volume 9.6 fl (7.4-10.4); Monocytes # 0.4 K/mm3 (0.1-1.0); Neutrophils # 6.5 K/mm3 (1.8-7.8); Neutrophils % 74.2 % (37.0-80.0); Platelet Count 200 K/mm3 (142-424); Red Blood Count 4.01 M/mm3 (4.20-5.40); Red Cell Distribution Width 16.9 % (11.5-17.5); White Blood Count 8.8 K/mm3 (4.8-10.8)
[2022-07-28 15:05] LABS: Anion Gap 10.4 mEq/L (5-15); Blood Urea Nitrogen 55 mg/dl (7-17); Calcium 9.2 mg/dl (8.4-10.2); Carbon Dioxide 26 mmol/L (22.0-30.0); Chloride 104 mmol/L (98-107); Chol/HDL Ratio 4.3 (1-3.5); Cholesterol 167 mg/dl (140-200); Estimated Glomerular Filt Rate 14 ml/min (>60); GFR (African American) 17 ML/MIN (>60); Glucose 263 mg/dl (74-100); HDL Cholesterol 39 mg/dl (40-60); Potassium 5.4 mmoL/L (3.5-5.1); Sodium 135 mmol/L (136-145); Triglycerides 214 mg/dl (30-150); VLDL Cholesterol 43 mg/dL (0-40)
[2022-07-28 15:11] LABS: Alanine Aminotransferase 18 U/L (12-78); Alkaline Phosphatase 187 U/L (38-126); Aspartate Amino Transferase 21 U/L (14-36); Bilirubin,Direct 0.1 mg/dl (0.0-0.4); Bilirubin,Indirect 0.3 mg/dL (0.0-0.9); Bilirubin,Total 0.4 mg/dl (0.2-1.3); Bilirubin,Unconjugated 0.3 mg/dL (0.0-1.1); Magnesium 2.1 mg/dl (1.6-2.3); Total Protein,Serum 7.3 g/dl (6.3-8.2)
[2022-07-28 15:16] LABS: Direct LDL Cholesterol 76.75 mg/dL (100-129)
[2022-07-28 15:18] LABS: Intact Parathyroid Hormone 210.2 pg/mL (7.5-53.5)
[2022-07-28 15:30] LABS: Free T4 (Free Thyroxine) 0.57 ng/dl (0.78-2.19)
[2022-07-28 15:36] LABS: Thyroid Stimulating Hormone 2.42 uIU/mL (0.465-4.68)
[2022-07-28 16:15] LABS: Hemoglobin A1C 8.6 % (4.0-6.0)
[2022-07-28 16:16] LABS: Folate 6.58 ng/mL
[2022-07-28 16:34] LABS: Iron 80 ug/dL (37-170)
[2022-07-28 16:54] LABS: Total Iron Binding Capacity 300 ug/dL (265-497)
[2022-07-28 18:35] LABS: Ferritin 26.5 ng/ml (6.24-137)
[2022-07-31 19:37] LABS: Vitamin B1 132.9 nmol/L (66.5-200.0)
[2022-08-02 13:39] LABS: Vitamin E Alpha Tocopherol 9.4 mg/L (7.0-25.1); Vitamin E Gamma Tocopherol 2.8 mg/L (0.5-5.5)
[2022-08-02 18:09] LABS: Methylmalonic Acid 523 nmol/L (0-378)
== END ==
PROVIDERS: Physician Assistant; PCP Nurse Practitioner Family; Visit Provider Nurse Practitioner
DX: I25.118 Atherosclerotic heart disease of native coronary artery with other forms of angina pectoris (principal); Z01.810 Encounter for preprocedural cardiovascular examination; I10 Essential (primary) hypertension; E78.2 Mixed hyperlipidemia
CPT/HCPCS: 36415; 80048; 80053; 80061; 80076; 82131; 82306; 82728; 82746; 83036; 83540; 83550; 83735; 83970; 84425; 84439; 84443; 84446; 84590; 85025

== ENCOUNTER → 2022-08-12 15:00 | Outpatient (CLI) | payer MEDICAID, SELFPAY ==
[2022-08-12 16:21] LABS: Basophils # 0.1 K/mm3 (0-0.2); Basophils % 0.5 % (0.1-2.0); Eosinophils # 0.4 K/mm3 (0.0-0.4); Eosinophils % 4.2 % (0.1-12.0); Hematocrit 32.8 % (37.0-47.0); Hemoglobin 10.2 g/dL (12.2-16.2); Lymphocytes # 1.9 K/mm3 (0.7-4.5); Lymphocytes % 18.8 % (10-50); Mean Corpuscular HGB Conc 31.3 g/dL (31.8-35.4); Mean Corpuscular Hemoglobin 27.5 pg (27.0-31.2); Mean Platelet Volume 9.5 fl (7.4-10.4); Monocytes # 0.5 K/mm3 (0.1-1.0); Monocytes % 5.3 % (1.7-9.3); Neutrophils # 7.3 K/mm3 (1.8-7.8); Neutrophils % 71.2 % (37.0-80.0); Platelet Count 267 K/mm3 (142-424); Red Blood Count 3.72 M/mm3 (4.20-5.40); Red Cell Distribution Width 17.2 % (11.5-17.5); White Blood Count 10.3 K/mm3 (4.8-10.8)
[2022-08-12 16:45] LABS: Anion Gap 18.3 mEq/L (5-15); Blood Urea Nitrogen 49 mg/dl (7-17); Calcium 8.9 mg/dl (8.4-10.2); Carbon Dioxide 20 mmol/L (22.0-30.0); Chloride 107 mmol/L (98-107); Chol/HDL Ratio 4.1 (1-3.5); Cholesterol 155 mg/dl (140-200); Estimated Glomerular Filt Rate 15 ml/min (>60); GFR (African American) 18 ML/MIN (>60); Glucose 105 mg/dl (74-100); HDL Cholesterol 38 mg/dl (40-60); Potassium 5.3 mmoL/L (3.5-5.1); Sodium 140 mmol/L (136-145); Triglycerides 159 mg/dl (30-150); VLDL Cholesterol 32 mg/dL (0-40)
[2022-08-12 16:56] LABS: Direct LDL Cholesterol 78.06 mg/dL (100-129)
[2022-08-12 17:16] LABS: Thyroid Stimulating Hormone 2.02 uIU/mL (0.465-4.68)
== END ==
PROVIDERS: PCP Nurse Practitioner Family; Visit Provider Nurse Practitioner
DX: I25.118 Atherosclerotic heart disease of native coronary artery with other forms of angina pectoris (principal); I10 Essential (primary) hypertension; E78.2 Mixed hyperlipidemia; Z01.810 Encounter for preprocedural cardiovascular examination
CPT/HCPCS: 36415; 80048; 80061; 84443; 85025; 93306

== ENCOUNTER → 2022-08-14 14:15 | Outpatient (CLI) | payer MEDICAID, SELFPAY ==
[2022-08-14 14:32] LABS: Microscopic, Urine URINE MICROSCOPIC (MICROSCOPIC)
[2022-08-14 15:12] LABS: Hematocrit 31.2 % (37.0-47.0); Hemoglobin 10.2 g/dL (12.2-16.2); Mean Corpuscular HGB Conc 32.7 g/dL (31.8-35.4); Mean Corpuscular Volume 85.8 fl (81-99); Platelet Count 249 K/mm3 (142-424); Red Blood Count 3.63 M/mm3 (4.20-5.40); White Blood Count 12.2 K/mm3 (4.8-10.8)
[2022-08-14 15:27] LABS: Appearance,Urine CLEAR (Clear); Bilirubin,Urine Negative (Negative); Blood, Urine 1+ (Negative); Color,Urine YELLOW (Yellow); Glucose,Urine (UA) TRACE (Negative); Ketones,Urine Negative (Negative); Leukocyte Esterase,Urine Negative (Negative); Nitrate,Urine Negative (Negative); Protein,Urine 2+ (Negative); Specific Gravity, Urine 1.015 (1.005-1.030); Urobilinogen,Urine 0.2 EU/dl (0.2)
[2022-08-14 15:38] LABS: Bacteria,Urine Trace /lpf; RBC,Urine Occasional #/hpf (0-3); WBC,Urine Occasional #/hpf (0-3)
[2022-08-14 15:56] LABS: Creatinine,Urine Random 76 mg/dL (Not Estab.)
[2022-08-14 16:02] LABS: Albumin Level 3.9 g/dl (3.5-5.0); Anion Gap 18.5 mEq/L (5-15); Blood Urea Nitrogen 55 mg/dl (7-17); Calcium 8.7 mg/dl (8.4-10.2); Carbon Dioxide 20 mmol/L (22.0-30.0); Chloride 107 mmol/L (98-107); Estimated Glomerular Filt Rate 15 ml/min (>60); GFR (African American) 19 ML/MIN (>60); Glucose 168 mg/dl (74-100); Potassium 5.5 mmoL/L (3.5-5.1); Sodium 140 mmol/L (136-145)
[2022-08-14 16:13] LABS: Intact Parathyroid Hormone 304.2 pg/mL (7.5-53.5)
== END ==
PROVIDERS: PCP Nurse Practitioner Family; Visit Provider Internal Medicine Nephrology
DX: N18.4 Chronic kidney disease, stage 4 (severe) (principal)
CPT/HCPCS: 36415; 80069; 81001; 82570; 83970; 84155; 85014; 85018; 85048; 85049

== ENCOUNTER → 2022-08-27 08:57 | Outpatient (CLI) | payer MEDICAID, SELFPAY ==
--- NOTE | 2022-08-27 09:11 | XR_ITS ---
FINAL REPORT CLINICAL HISTORY: OBESITY, former smoker, pre op COMPARISON: 07/15/2021 FINDINGS: TWO-VIEW CHEST The heart size is normal. The mediastinum is normal. The lungs are clear. There is no pneumothorax. IMPRESSION: No acute cardiopulmonary process. Reviewed, Interpreted and Dictated by Aj Quiroz MD Transcribed by Lynne Torres Authenticated and [facility]
[2022-08-27 09:31] LABS: Basophils # 0.1 K/mm3 (0-0.2); Basophils % 0.5 % (0.1-2.0); Eosinophils # 0.3 K/mm3 (0.0-0.4); Eosinophils % 3.4 % (0.1-12.0); Hematocrit 31.3 % (37.0-47.0); Hemoglobin 10.2 g/dL (12.2-16.2); Lymphocytes # 1.9 K/mm3 (0.7-4.5); Lymphocytes % 19.7 % (10-50); Mean Corpuscular HGB Conc 32.5 g/dL (31.8-35.4); Mean Corpuscular Hemoglobin 28.2 pg (27.0-31.2); Mean Corpuscular Volume 86.8 fl (81-99); Mean Platelet Volume 8.7 fl (7.4-10.4); Monocytes # 0.3 K/mm3 (0.1-1.0); Monocytes % 3.3 % (1.7-9.3); Neutrophils # 6.9 K/mm3 (1.8-7.8); Platelet Count 287 K/mm3 (142-424); Red Cell Distribution Width 16.9 % (11.5-17.5); White Blood Count 9.4 K/mm3 (4.8-10.8)
[2022-08-27 10:01] LABS: Chloride 102 mmol/L (98-107); Potassium 5.4 mmoL/L (3.5-5.1); Sodium 141 mmol/L (136-145)
[2022-08-27 10:02] LABS: Albumin Level 3.7 g/dl (3.5-5.0)
[2022-08-27 10:04] LABS: Anion Gap 20.4 mEq/L (5-15); Blood Urea Nitrogen 52 mg/dl (7-17); Carbon Dioxide 24 mmol/L (22.0-30.0); Estimated Glomerular Filt Rate 14 ml/min (>60); GFR (African American) 17 ML/MIN (>60)
[2022-08-27 10:05] LABS: Calcium 8.8 mg/dl (8.4-10.2); Glucose 129 mg/dl (74-100)
== END ==
PROVIDERS: PCP Physician Assistant; Visit Provider Internal Medicine Nephrology
DX: N18.4 Chronic kidney disease, stage 4 (severe) (principal); E66.9 Obesity, unspecified; Z68.41 Body mass index [BMI] 40.0-44.9, adult; Z72.0 Tobacco use
CPT/HCPCS: 36415; 71046; 80069; 85025

== ENCOUNTER → 2022-08-28 12:43 | Outpatient (POV) | payer MEDICAID, SELFPAY | PROVIDERS: Visit Provider Internal Medicine Nephrology | DX: Z00.00 Encounter for general adult medical examination without abnormal findings (principal) ==

== ENCOUNTER 2022-09-26 11:17 | Day surgery (SDC) | payer MEDICAID, SELFPAY ==
[2022-09-24 11:28] VITALS: BMI 42.6
[2022-09-26 11:38] LABS: Urine Pregnancy, HCG Qual. Negative (Negative)
--- NOTE | 2022-09-26 11:52 | SUR.PREOP ---
patient arrived in preop asked if completed prep she stated Yes. she stated she is still brown with little liquid and solid stool. Notified Dr Rasmussen and ordered enemas till clear. patient given 1st enema instructions and in BR 1149- pt stated she had very little come out was brown/ gave 2nd enema- when asked about diet yesterday she stated she had an egg in morning and half a turkey sandwich at lunch. Pt in Br w/ 2nd enema
--- NOTE | 2022-09-26 12:05 | SUR.PREOP ---
1205- patient completed 2nd enema with no results. She has decided to reschedule and we explained clear liquids the day before and complete all prep. She stated she didn't understand all the instrucitons. We will cancel here procedure. No IV was started.
== END 2022-09-26 12:11 | disposition home or self-care (01) ==
PROVIDERS: PCP Nurse Practitioner Family; Visit Provider Surgery
PROC: 0DJD8ZZ Inspection of Lower Intestinal Tract, Via Natural or Artificial Opening Endoscopic (ICD-10-PCS; principal; 2022-09-26 12:30)
DX: Z91.199 Patient's noncompliance with other medical treatment and regimen due to unspecified reason (principal); Z53.8 Procedure and treatment not carried out for other reasons; Z12.11 Encounter for screening for malignant neoplasm of colon
CPT/HCPCS: 81025

== ENCOUNTER → 2022-11-10 13:15 | Outpatient (CLI) | payer MEDICAID, SELFPAY ==
[2022-11-10 13:32] LABS: Microscopic, Urine URINE MICROSCOPIC (MICROSCOPIC)
[2022-11-10 14:02] LABS: Appearance,Urine CLEAR (Clear); Bilirubin,Urine Negative (Negative); Blood, Urine 1+ (Negative); Color,Urine YELLOW (Yellow); Glucose,Urine (UA) TRACE (Negative); Ketones,Urine Negative (Negative); Leukocyte Esterase,Urine Negative (Negative); Nitrate,Urine Negative (Negative); Protein,Urine 2+ (Negative); Specific Gravity, Urine 1.015 (1.005-1.030); Urobilinogen,Urine 0.2 EU/dl (0.2)
[2022-11-10 14:07] LABS: Hemoglobin 10.5 g/dL (12.2-16.2); Mean Corpuscular HGB Conc 32.7 g/dL (31.8-35.4); Mean Corpuscular Hemoglobin 27.8 pg (27.0-31.2); Mean Corpuscular Volume 85.2 fl (81-99); Platelet Count 247 K/mm3 (142-424); Red Blood Count 3.76 M/mm3 (4.20-5.40); Red Cell Distribution Width 15.2 % (11.5-17.5); White Blood Count 9.4 K/mm3 (4.8-10.8)
[2022-11-10 14:14] LABS: Bacteria,Urine Trace /lpf; RBC,Urine Occasional #/hpf (0-3); Squamous Epithelial Cell,Urine Occasional #/hpf (0-5); WBC,Urine Occasional #/hpf (0-3)
[2022-11-10 14:42] LABS: Chloride 105 mmol/L (98-107); Sodium 142 mmol/L (136-145)
[2022-11-10 14:43] LABS: Albumin Level 3.7 g/dl (3.5-5.0)
[2022-11-10 14:45] LABS: Anion Gap 14.4 mEq/L (5-15); Blood Urea Nitrogen 60 mg/dl (7-17); Carbon Dioxide 27 mmol/L (22.0-30.0); Estimated Glomerular Filt Rate 12 ml/min (>60); GFR (African American) 14 ML/MIN (>60); Phosphorous 5.1 mg/dl (2.5-4.5); Potassium 4.4 mmoL/L (3.5-5.1)
[2022-11-10 14:46] LABS: Glucose 148 mg/dl (74-100)
[2022-11-11 09:11] LABS: Creatinine,Urine Random 95 mg/dL (Not Estab.)
== END ==
PROVIDERS: PCP Nurse Practitioner Family; Visit Provider Internal Medicine Nephrology
DX: N18.4 Chronic kidney disease, stage 4 (severe) (principal)
CPT/HCPCS: 36415; 80069; 81001; 82570; 84155; 85014; 85018; 85048; 85049

== ENCOUNTER → 2022-11-10 15:52 | Outpatient (POV) | payer MEDICAID, SELFPAY | PROVIDERS: Visit Provider Internal Medicine Nephrology | DX: Z00.00 Encounter for general adult medical examination without abnormal findings (principal) ==

== ENCOUNTER 2022-12-05 07:15 | Day surgery (SDC) | payer MEDICAID, SELFPAY ==
--- NOTE | 2022-12-02 17:02 | SUR.PREOP ---
Attempted pre-op phone call at this time. No answer, VM left w/ call back #
[2022-12-05 07:21] VITALS: BMI 41.8
[2022-12-05 07:36] VITALS: BP 140/71; PULSE 106; RESP 18; TEMP 36.7; O2SAT 100
[2022-12-05 08:03] LABS: HCG Qualitative, Serum Negative (Negative)
--- NOTE | 2022-12-05 09:08 | EXP.ANES.CKL ---
[facility] Disclaimer: The information contained in this section may have been updated after the patient was seen, as this information can be updated by other users. Medical History Back Pain Bilateral carpal tunnel syndrome Bipolar II disorder CAD (coronary artery disease) Candidiasis, intertrigo Chronic kidney disease COPD (chronic obstructive pulmonary disease) Diabetes mellitus Diastolic dysfunction Dyspnea Edema Encounter for pre-operative cardiovascular clearance GERD (gastroesophageal reflux disease) History of back pain History of cataract HTN (hypertension) Hydradenitis Hyperlipidemia (~06/29/17) Leg swelling Memory Loss Neck pain Osteoarthritis Renal disease Subungual hematoma of fifth toe of left foot Subungual hematoma of great toe of left foot Tobacco abuse Type 2 diabetes mellitus Vitamin D deficiency (~06/29/17) Surgical History History of ankle surgery History of bilateral carpal tunnel release History of section History of incision and drainage Family History Mother Diabetes Father Diabetes Lymphoma Social History Smoking Status: Former smoker pack-years: 31 smoking status stop date: 1 year ago quit status: considering quitting second hand exposure: No alcohol intake: never substance use type: denies use current occupational status: disabled Travel in the last 8 weeks: None adopted: No caregiver/support person: No foster care: No household members: spouse housing: apartment lives independently: Yes marital status: number of children: 1 number of grandchildren: 0 education level: high school service: No fci: No current occupational exposures/hazards: No Hx Recent Travel: No sexually active: No caffeine: Yes physical activity: none phil/oriental orthodox: Islam special phil needs: No working smoke detector in home: Yes fire extinguisher in home: No carbon monox detector in home: No firearms in home: No do you feel safe at home: Yes [facility] Anesthesia Checklist Patient Identification Patient Identification: Family Structural Data Admitted From: Home Planned Operative Procedure/s: colonoscopy screening. Verified Documents: Surgical Consent NPO Status Verified Time NPO: 00:00 Additional verifications Patient : No Anesthesia Reactions: No Hx Blood Transfusions: No Blood Transfusion Reaction: No Cephalosporin Allergy: No Previous Colonoscopy: Yes Airway Assessment Mallampati Score:: Class II C-Spine Mobility Assessed: Yes TMJ Mobility Assessed: Yes Dentition: Good Dentition Neurological Assessment Level of Consciousness: Awake, Alert, Appropriate and Follows Commands Hx Seizures: No Numbness or tingling in extremities: No Anesthesia Plan Anesthesia Risk discussed: Yes ASA Class: III Anesthesia Type: MAC Preoperative Comments Pre-Operative Comments: Hypertension. IDDM. Stage IV renal failure, waiting for transplant.
[2022-12-05 09:11] VITALS: O2SAT 100
--- NOTE | 2022-12-05 10:02 | P.PCN_ITS ---
Procedure: Date: 12/05/22 Patient Date of :: 1975 Procedure Performed:: Total colonoscopy to cecum with multiple polypectomy Indications:: Patient is a 47-year-old female with end-stage renal disease undergoing evaluation for possible transplant. As part of her workup she was scheduled for screening colonoscopy. Performing Provider:: Jong Rasmussen MD Referring Provider:: Dyllan Gil Sedation:: MAC sedation Procedure:: Patient history was obtained and appropriate physical examination was performed. Patient's medications and allergies were reviewed. Informed consent was obtained after explaining the benefits, alternatives, and risks of the procedure including, but not limited to, bleeding, perforation, missed lesions, and adverse reaction to anesthesia medications. Patient was transported to endoscopy procedure room. Patient was connected to monitoring devices. Throughout the procedure the patient's blood pressure, pulse, and oxygen saturations were monitored continuously. Patient i dentification and planned procedure were verified by the staff. Patient was positioned in lateral decubitus position. Digital anorectal exam was performed. Variable stiffness Olympus colonoscope was inserted and advanced under direct visualization to the cecum. Adequacy of the colonic preparation was noted. The colonoscope was then slowly withdrawn while carefully examining the color, texture, anatomy, and integrity of the mucosoa circumferentially. Within the rectum retroflexion was performed. Colonoscope was then withdrawn. . . Colonic preparation was fair to poor. With high-volume trans colonoscopic irrigation and suctioning fair visualization was achieved. Within the cecum there was a polyp removed with cold snare. At the splenic flexure there was a relatively large flat sessile adenomatous polyp removed with hot snare. This required maceration and piecemeal removal using the Doyle net given its large size. The area was marked adjacent to the polypectomy site with Stephenie ink. In the proximal descending colon adenomatous polyp removed with cold snare. In the proximal sigmoid colon there was an adenomatous polyp removed with cold snare. Mid sigmoid colon removed with cold snare. There was a somewhat pedunculated moderate adenomatous polyp. In the mid sigmoid colon removed with hot snare. Findings:: Poor to fair preparation Polyps as noted above, total of 6 polyps, several complex adenomatous appearing polyps. Recommendations:: Likely repeat colonoscopy 6 to 12 months with multi day prep given the poor colonic preparation and number of complex polyps Complications:: None immediately apparent Estimated blood obtained (mL): 2 Colonoscopy Component Colonoscopy Component Was a colonoscopy performed during today's procedure?: Yes Recommended follow up colonoscopy of at least 10 years?: No If no, follow up colonoscopy recommended in ___ years?: Unclear Reason for not recommending >/= 10 yr follow-up interval?: Poor prep. Polyp pathology pending.
[2022-12-05 10:04] VITALS: BP 162/88; PULSE 101; RESP 17; O2SAT 98
[2022-12-05 10:14] VITALS: BP 158/89; PULSE 95; RESP 17; O2SAT 99
[2022-12-05 10:24] VITALS: BP 159/90; PULSE 90; RESP 18; O2SAT 99
[2022-12-06 05:02] LABS: POC Glucose,Bedside 120 (70-110)
== END 2022-12-05 10:30 | disposition home or self-care (01) ==
PROVIDERS: PCP Nurse Practitioner Family; Visit Provider Surgery
PROC: 0DJD8ZZ Inspection of Lower Intestinal Tract, Via Natural or Artificial Opening Endoscopic (ICD-10-PCS; CPT 45385; principal; 2022-12-05 08:30)
DX: Z12.11 Encounter for screening for malignant neoplasm of colon (principal); N18.6 End stage renal disease; Z91.199 Patient's noncompliance with other medical treatment and regimen due to unspecified reason; D12.0 Benign neoplasm of cecum; D12.3 Benign neoplasm of transverse colon; D12.4 Benign neoplasm of descending colon; D12.5 Benign neoplasm of sigmoid colon; E11.9 Type 2 diabetes mellitus without complications
CPT/HCPCS: 45385; 82962; 84703; J2405; J2704

== ENCOUNTER → 2022-12-15 16:47 | Outpatient (CLI) | payer MEDICAID, SELFPAY ==
[2022-12-15 17:36] LABS: Hematocrit 32.3 % (37.0-47.0); Hemoglobin 10.7 g/dL (12.2-16.2); Mean Corpuscular HGB Conc 33.2 g/dL (31.8-35.4); Mean Corpuscular Hemoglobin 28.7 pg (27.0-31.2); Mean Corpuscular Volume 86.5 fl (81-99); Platelet Count 243 K/mm3 (142-424); Red Blood Count 3.73 M/mm3 (4.20-5.40); Red Cell Distribution Width 15.5 % (11.5-17.5); White Blood Count 9.6 K/mm3 (4.8-10.8)
[2022-12-15 18:44] LABS: Anion Gap 16.5 mEq/L (5-15); Blood Urea Nitrogen 39 mg/dl (7-17); Calcium 9.2 mg/dl (8.4-10.2); Carbon Dioxide 23 mmol/L (22.0-30.0); Chloride 107 mmol/L (98-107); Estimated Glomerular Filt Rate 15 ml/min (>60); GFR (African American) 19 ML/MIN (>60); Glucose 205 mg/dl (74-100); Phosphorous 3.5 mg/dl (2.5-4.5); Potassium 4.5 mmoL/L (3.5-5.1); Sodium 142 mmol/L (136-145)
[2022-12-15 20:28] LABS: Creatinine,Urine Random 74 mg/dL (Not Estab.)
[2022-12-18 09:05] LABS: Microscopic, Urine URINE MICROSCOPIC (MICROSCOPIC)
[2022-12-18 09:22] LABS: Appearance,Urine CLEAR (Clear); Bilirubin,Urine Negative (Negative); Blood, Urine TRACE-I (Negative); Color,Urine YELLOW (Yellow); Glucose,Urine (UA) 1+ (Negative); Ketones,Urine Negative (Negative); Leukocyte Esterase,Urine Negative (Negative); Nitrate,Urine Negative (Negative); PH,Urine 5.5 (5.0-8.5); Protein,Urine 2+ (Negative); Urobilinogen,Urine 0.2 EU/dl (0.2)
[2022-12-18 09:38] LABS: Squamous Epithelial Cell,Urine 50-100 #/hpf (0-5)
== END ==
PROVIDERS: PCP Nurse Practitioner Family; Visit Provider Internal Medicine Nephrology
DX: N18.4 Chronic kidney disease, stage 4 (severe) (principal)
CPT/HCPCS: 36415; 80069; 81001; 82570; 84155; 85014; 85018; 85048; 85049

== ENCOUNTER → 2022-12-22 15:26 | Outpatient (CLI) | payer MEDICAID, SELFPAY ==
[2022-12-22 16:04] LABS: Basophils # 0.1 K/mm3 (0-0.2); Basophils % 0.6 % (0.1-2.0); Eosinophils # 0.4 K/mm3 (0.0-0.4); Eosinophils % 3.5 % (0.1-12.0); Hematocrit 31.4 % (37.0-47.0); Hemoglobin 10.3 g/dL (12.2-16.2); Lymphocytes % 19.8 % (10-50); Mean Corpuscular HGB Conc 32.9 g/dL (31.8-35.4); Mean Corpuscular Hemoglobin 28.8 pg (27.0-31.2); Mean Corpuscular Volume 87.4 fl (81-99); Mean Platelet Volume 9.9 fl (7.4-10.4); Monocytes # 0.4 K/mm3 (0.1-1.0); Monocytes % 4.3 % (1.7-9.3); Neutrophils # 7.3 K/mm3 (1.8-7.8); Neutrophils % 71.9 % (37.0-80.0); Platelet Count 279 K/mm3 (142-424); Red Blood Count 3.59 M/mm3 (4.20-5.40); Red Cell Distribution Width 15.7 % (11.5-17.5); White Blood Count 10.2 K/mm3 (4.8-10.8)
[2022-12-22 16:52] LABS: Albumin Level 4.1 g/dl (3.5-5.0); Anion Gap 17.4 mEq/L (5-15); Blood Urea Nitrogen 44 mg/dl (7-17); Calcium 9.2 mg/dl (8.4-10.2); Carbon Dioxide 24 mmol/L (22.0-30.0); Chloride 106 mmol/L (98-107); Estimated Glomerular Filt Rate 14 ml/min (>60); GFR (African American) 17 ML/MIN (>60); Glucose 121 mg/dl (74-100); Phosphorous 3.2 mg/dl (2.5-4.5); Potassium 5.4 mmoL/L (3.5-5.1); Sodium 142 mmol/L (136-145)
== END ==
PROVIDERS: PCP Nurse Practitioner Family; Visit Provider Internal Medicine Nephrology
DX: N18.4 Chronic kidney disease, stage 4 (severe) (principal)
CPT/HCPCS: 36415; 80069; 85025

== ENCOUNTER → 2023-01-01 13:22 | Outpatient (CLI) | payer MEDICAID, SELFPAY ==
[2023-01-01 14:05] LABS: Hemoglobin A1C 7.3 % (4.0-6.0)
[2023-01-01 14:19] LABS: Basophils % 0.4 % (0.1-2.0); Eosinophils # 0.3 K/mm3 (0.0-0.4); Eosinophils % 2.5 % (0.1-12.0); Hematocrit 32.5 % (37.0-47.0); Hemoglobin 10.1 g/dL (12.2-16.2); Lymphocytes # 1.5 K/mm3 (0.7-4.5); Lymphocytes % 13.9 % (10-50); Mean Corpuscular Hemoglobin 27.2 pg (27.0-31.2); Mean Corpuscular Volume 87.8 fl (81-99); Mean Platelet Volume 9.8 fl (7.4-10.4); Monocytes # 0.3 K/mm3 (0.1-1.0); Monocytes % 3.2 % (1.7-9.3); Neutrophils # 8.6 K/mm3 (1.8-7.8); Platelet Count 265 K/mm3 (142-424); Red Cell Distribution Width 15.7 % (11.5-17.5); White Blood Count 10.7 K/mm3 (4.8-10.8)
[2023-01-01 14:54] LABS: Alanine Aminotransferase 23 U/L (12-78); Albumin/Globulin Ratio 1.1 (1.1-1.8); Alkaline Phosphatase 170 U/L (38-126); Anion Gap 20.2 mEq/L (5-15); Aspartate Amino Transferase 28 U/L (14-36); Bilirubin,Total 0.4 mg/dl (0.2-1.3); Blood Urea Nitrogen 54 mg/dl (7-17); Calcium 9.4 mg/dl (8.4-10.2); Carbon Dioxide 19 mmol/L (22.0-30.0); Chloride 104 mmol/L (98-107); Chol/HDL Ratio 4.1 (1-3.5); Cholesterol 153 mg/dl (140-200); Estimated Glomerular Filt Rate 13 ml/min (>60); GFR (African American) 16 ML/MIN (>60); Globulin 3.6 g/dL (1.3-3.2); Glucose 310 mg/dl (74-100); HDL Cholesterol 37 mg/dl (40-60); Potassium 5.2 mmoL/L (3.5-5.1); Sodium 138 mmol/L (136-145); Total Protein,Serum 7.6 g/dl (6.3-8.2); Triglycerides 211 mg/dl (30-150); VLDL Cholesterol 42 mg/dL (0-40)
[2023-01-01 15:06] LABS: Intact Parathyroid Hormone 258.6 pg/mL (7.5-53.5)
[2023-01-01 15:07] LABS: Direct LDL Cholesterol 66.54 mg/dL (100-129)
[2023-01-01 15:14] LABS: 25-OH Vitamin D, Total 33.1 ng/mL (30-100)
[2023-01-01 15:24] LABS: Thyroid Stimulating Hormone 2.16 uIU/mL (0.465-4.68)
[2023-01-01 15:42] LABS: Iron 93 ug/dL (37-170)
[2023-01-01 15:52] LABS: Total Iron Binding Capacity 302 ug/dL (265-497)
[2023-01-01 16:19] LABS: Ferritin 21.5 ng/ml (6.24-137)
[2023-01-01 16:25] LABS: Folate 6.92 ng/mL
[2023-01-07 00:04] LABS: Vitamin B1 107.2 nmol/L (66.5-200.0)
[2023-01-07 19:39] LABS: Vitamin A 53.1 ug/dL (20.1-62.0); Vitamin E Alpha Tocopherol 8.3 mg/L (7.0-25.1); Vitamin E Gamma Tocopherol 2.5 mg/L (0.5-5.5)
[2023-01-12 11:58] LABS: Methylmalonic Acid 450 nmol/L (0-378)
== END ==
LOC: LAB 13:22
PROVIDERS: PCP Nurse Practitioner Family; Visit Provider Physician Assistant
DX: E66.9 Obesity, unspecified (principal); Z68.41 Body mass index [BMI] 40.0-44.9, adult; Z79.899 Other long term (current) drug therapy; D64.9 Anemia, unspecified
CPT/HCPCS: 36415; 80053; 80061; 82306; 82728; 82746; 83036; 83540; 83550; 83921; 83970; 84425; 84443; 84446; 84590; 85025

== ENCOUNTER 2023-01-10 18:54 | Emergency (ER) | payer MEDICAID, SELFPAY ==
[2023-01-10] VITALS (11 sets, daily range): BP systolic 110–162; BP diastolic 78–86; PULSE 82–110; RESP 17–20; TEMP 36.2–37.1; O2SAT 99–100; BMI 41.5
--- NOTE | 2023-01-10 19:13 | EXP.UTC ---
Discharge Plan Disposition Patient Disposition: Still a Patient Prescriptions Prescriptions: No Action amlodipine 10 mg tablet 10 mg PO DAILY (DME) OneTouch Verio test strips Strip See Rx Instructions .ROUTE .MEDSUPPLY Qty: 10 Rx Instructions: As directed Lokelma 10 gram powder in packet 10 g PO DAILY irbesartan 150 mg tablet 150 mg PO DAILY carvedilol 25 mg tablet 25 mg PO BID Qty: 90 1RF Rx Instructions: TAKE ONE TABLET BY MOUTH 2 TIMES A DAY WITH FOOD Humulin 70/30 U-100 Insulin 100 unit/mL (70-30) suspension 62 ml SQ TID Rx Instructions: 62 UNITS FOR BREAKFAST , LUNCH 62 UNITS, DINNER 45 UNITS Victoza 2-Adrian 0.6 mg/0.1 mL (18 mg/3 mL) pen injector 1.8 mg SQ DAILY (DME) insulin syringe-needle U-100 [BD Veo Insulin Syringe UF] 1 mL 31 gauge x 15/64 syringe 1 ml .ROUTE .MEDSUPPLY Qty: 10 Rx Instructions: As directed (DME) insulin syringe-needle U-100 [BD Insulin Syringe Ultra-Fine] 1 mL 31 gauge x 5/16 syringe 1 ml .ROUTE .MEDSUPPLY Qty: 10 Rx Instructions: As directed (DME) pen needle, diabetic [BD Ultra-Fine Mini Pen Needle] 31 gauge x 3/16 needle See Rx Instructions .ROUTE .MEDSUPPLY Qty: 50 Rx Instructions: As directed quetiapine [Seroquel] 200 mg tablet 200 mg PO HS Qty: 1 0RF omeprazole 40 mg capsule,delayed release(DR/EC) See Rx Instructions .ROUTE .COMPLEX Qty: 30 2RF Dose Instruction: TAKE ONE CAPSULE BY MOUTH ONCE A DAY Rx Instructions: TAKE ONE CAPSULE BY MOUTH ONCE A DAY (DME) blood-glucose sensor 1 EACH device See Rx Instructions SQ .MEDSUPPLY Rx Instructions: As directed (DME) blood-glucose meter,continuous 1 EACH misc See Rx Instructions MISCELLANE .MEDSUPPLY Rx Instructions: As directed calcium carbonate 500 MG tablet 500 mg PO DAILY atorvastatin 80 mg tablet See Rx Instructions .ROUTE .COMPLEX Rx Instructions: TAKE ONE TABLET BY MOUTH ONCE A DAY FOR CHOLESTEROL cholecalciferol (vitamin D3) 50 mcg (2,000 unit) capsule See Rx Instructions .ROUTE .COMPLEX Rx Instructions: TAKE ONE CAPSULE BY MOUTH ONCE A DAY (DME) Dexcom G6 Transmitter Device See Rx Instructions MISCELLANEOUS Rx Instructions: USE DIRECTED furosemide 80 mg Tablet 80 mg PO BID cetirizine 10 mg tablet See Rx Instructions .ROUTE .COMPLEX Rx Instructions: TAKE ONE TABLET BY MOUTH ONCE A DAY NEEDED FOR ALLERGY SYMPTOMS polyethylene glycol 3350 17 gram/dose powder See Rx Instructions .ROUTE .COMPLEX Rx Instructions: MIX 17 GRAMS IN 8 OUNCES OF WATER AND DRINK ONCE A DAY albuterol sulfate 90 mcg/actuation HFA aerosol inhaler See Rx Instructions .ROUTE .COMPLEX Rx Instructions: INHALE 1 PUFF BY MOUTH EVERY 6 HOURS lamotrigine 100 mg tablet 150 mg PO BID Referrals Follow up/Referrals: Dyllan Gil APRN [Primary Care Provider] - See instructions Clinical Impressions Clinical Impression: Dizziness Discharge ED Provider: Aminata Greco [facility] [place] H[place] General Stated complaint: nausea,dizzy Mode of Arrival: Ambulatory Source of Information: Patient Limitations: No Limitations Time Seen by Provider: 01/10/23 19:13 Description of Symptoms (Recalled from Triage Doc. by RN): Patient states she is light headed and nauseated since this last pm. HEENT Symptoms (Recalled from RN notes): No Resp Symptoms (Recalled from RN notes): No Skin Symptoms (Recalled from RN notes): No MS Symptoms (Recalled from RN notes): Yes Functional Status (Recalled from RN notes): wnl History of Present Illness Provider Complaint: 37 yr old female presents for lightheaded, nausea and vomiting since last pm. pt states she has stage 4 kidney dz and she has not been able to keep anything down since last pm. pt states this am she vomited up what looked like blood- son states it was bright red blood. pt s
--- NOTE | 2023-01-10 19:31 | XR_ITS ---
PROCEDURE INFORMATION: Exam: XR Chest Exam date and time: 01/10/2023 7:55 PM Age: 47 years old Clinical indication: Pain; Chest pressure; Additional info: Upper belly pain/hematemesis - upright please TECHNIQUE: Imaging protocol: Radiologic exam of the chest. Views: 1 view. COMPARISON: CR XR CHEST 2V 08/27/2022 9:17 AM FINDINGS: Lungs: Unremarkable. No consolidation. Pleural spaces: Unremarkable. No pleural effusion. No pneumothorax. Heart/Mediastinum: Unremarkable. No cardiomegaly. Bones/joints: Unremarkable. IMPRESSION: No acute findings.
--- NOTE | 2023-01-10 19:35 | HMH.EDGENADL ---
Discharge Plan Disposition Patient Disposition: Still a Patient Condition: Good Prescriptions Prescriptions: New famotidine [Pepcid] 20 mg tablet 20 mg PO DAILY Qty: 30 0RF pantoprazole 40 mg tablet,delayed release (DR/EC) 40 mg PO DAILY Qty: 30 0RF ondansetron 4 mg tablet,disintegrating 4 mg PO Q8H PRN (Reason: nausea and vomiting) 4 Days Qty: 12 0RF No Action amlodipine 10 mg tablet 10 mg PO DAILY (DME) OneTouch Verio test strips Strip See Rx Instructions .ROUTE .MEDSUPPLY Qty: 10 Rx Instructions: As directed Lokelma 10 gram powder in packet 10 g PO DAILY irbesartan 150 mg tablet 150 mg PO DAILY carvedilol 25 mg tablet 25 mg PO BID Qty: 90 1RF Rx Instructions: TAKE ONE TABLET BY MOUTH 2 TIMES A DAY WITH FOOD Humulin 70/30 U-100 Insulin 100 unit/mL (70-30) suspension 62 ml SQ TID Rx Instructions: 62 UNITS FOR BREAKFAST , LUNCH 62 UNITS, DINNER 45 UNITS Victoza 2-Adrian 0.6 mg/0.1 mL (18 mg/3 mL) pen injector 1.8 mg SQ DAILY (DME) insulin syringe-needle U-100 [BD Veo Insulin Syringe UF] 1 mL 31 gauge x 15/64 syringe 1 ml .ROUTE .MEDSUPPLY Qty: 10 Rx Instructions: As directed (DME) insulin syringe-needle U-100 [BD Insulin Syringe Ultra-Fine] 1 mL 31 gauge x 5/16 syringe 1 ml .ROUTE .MEDSUPPLY Qty: 10 Rx Instructions: As directed (DME) pen needle, diabetic [BD Ultra-Fine Mini Pen Needle] 31 gauge x 3/16 needle See Rx Instructions .ROUTE .MEDSUPPLY Qty: 50 Rx Instructions: As directed quetiapine [Seroquel] 200 mg tablet 200 mg PO HS Qty: 1 0RF omeprazole 40 mg capsule,delayed release(DR/EC) See Rx Instructions .ROUTE .COMPLEX Qty: 30 2RF Dose Instruction: TAKE ONE CAPSULE BY MOUTH ONCE A DAY Rx Instructions: TAKE ONE CAPSULE BY MOUTH ONCE A DAY (DME) blood-glucose sensor 1 EACH device See Rx Instructions SQ .MEDSUPPLY Rx Instructions: As directed (DME) blood-glucose meter,continuous 1 EACH misc See Rx Instructions MISCELLANE .MEDSUPPLY Rx Instructions: As directed calcium carbonate 500 MG tablet 500 mg PO DAILY atorvastatin 80 mg tablet See Rx Instructions .ROUTE .COMPLEX Rx Instructions: TAKE ONE TABLET BY MOUTH ONCE A DAY FOR CHOLESTEROL cholecalciferol (vitamin D3) 50 mcg (2,000 unit) capsule See Rx Instructions .ROUTE .COMPLEX Rx Instructions: TAKE ONE CAPSULE BY MOUTH ONCE A DAY (DME) Dexcom G6 Transmitter Device See Rx Instructions MISCELLANEOUS Rx Instructions: USE DIRECTED furosemide 80 mg Tablet 80 mg PO BID cetirizine 10 mg tablet See Rx Instructions .ROUTE .COMPLEX Rx Instructions: TAKE ONE TABLET BY MOUTH ONCE A DAY NEEDED FOR ALLERGY SYMPTOMS polyethylene glycol 3350 17 gram/dose powder See Rx Instructions .ROUTE .COMPLEX Rx Instructions: MIX 17 GRAMS IN 8 OUNCES OF WATER AND DRINK ONCE A DAY albuterol sulfate 90 mcg/actuation HFA aerosol inhaler See Rx Instructions .ROUTE .COMPLEX Rx Instructions: INHALE 1 PUFF BY MOUTH EVERY 6 HOURS lamotrigine 100 mg tablet 150 mg PO BID Referrals Follow up/Referrals: Dyllan Gil APRN [Primary Care Provider] - See instructions Activity Restrictions/Add. Instructions Additional Instructions/Restrictions: You were evaluated in the emergency department today. Please pick up attendant your prescriptions at the pharmacy and take them as prescribed. Stop taking your omeprazole at home if you start taking this pantoprazole prescribed to you, as they work the same way. Follow-up with your primary care provider over the next 3 days. Return to the emergency department for new or worsening symptoms. Clinical Impressions Clinical Impression: Indigestion, Gastroesophageal reflux disease Instructions Patient Instructions: DI for Gastroesophageal Reflux Disease (GERD), DI for Diarrhea and Tra
[2023-01-10 19:50] LABS: Basophils # 0.1 K/mm3 (0-0.2); Basophils % 0.4 % (0.1-2.0); Eosinophils # 0.2 K/mm3 (0.0-0.4); Eosinophils % 2.1 % (0.1-12.0); Lymphocytes # 2.1 K/mm3 (0.7-4.5); Lymphocytes % 19.2 % (10-50); Mean Corpuscular HGB Conc 31.4 g/dL (31.8-35.4); Mean Corpuscular Hemoglobin 26.8 pg (27.0-31.2); Mean Corpuscular Volume 85.5 fl (81-99); Mean Platelet Volume 9.3 fl (7.4-10.4); Monocytes # 0.4 K/mm3 (0.1-1.0); Monocytes % 3.6 % (1.7-9.3); Neutrophils # 8.1 K/mm3 (1.8-7.8); Neutrophils % 74.6 % (37.0-80.0); Platelet Count 259 K/mm3 (142-424); White Blood Count 10.9 K/mm3 (4.8-10.8)
[2023-01-10 19:52] LABS: Chloride 104 mmol/L (98-107); Potassium 4.8 mmoL/L (3.5-5.1); Sodium 142 mmol/L (136-145)
[2023-01-10 19:54] LABS: Blood Urea Nitrogen 41 mg/dl (7-17); Creatinine Clearance Estimated 21 mL/min (50-200); Estimated Glomerular Filt Rate 17 ml/min (>60); GFR (African American) 20 ML/MIN (>60)
[2023-01-10 19:55] LABS: Alanine Aminotransferase 22 U/L (12-78); Albumin/Globulin Ratio 0.9 (1.1-1.8); Alkaline Phosphatase 176 U/L (38-126); Anion Gap 16.8 mEq/L (5-15); Aspartate Amino Transferase 26 U/L (14-36); Bilirubin,Total 0.4 mg/dl (0.2-1.3); Calcium 9.1 mg/dl (8.4-10.2); Carbon Dioxide 26 mmol/L (22.0-30.0); Globulin 4.4 g/dL (1.3-3.2); Glucose 191 mg/dl (74-100); Lipase 52 U/L (23-300); Total Protein,Serum 8.4 g/dl (6.3-8.2)
[2023-01-10 19:57] LABS: Activated Partial Thrombo Time 26.7 seconds (22.8-30.6); Prothrombin Time 10.8 seconds (10.1-12.5)
--- NOTE | 2023-01-10 20:01 | ECG_ITS ---
APPROVED REPORT Exam: Resting ECG HR:97 bpm ECG Measurements Heart Rate 97 AXES IA 158 P 35 QRSd 98 QRS -54 QT 362 T 90 QTc 416 Conclusion SINUS RHYTHM PATTERN CONSISTENT WITH PULMONARY DISEASE LEFT ANTERIOR FASCICULAR BLOCK [QRS AXIS <= -45, QR IN I, RS IN II] VOLTAGE CRITERIA FOR LVH [MEETS CRITERIA IN ONE OF: R(aVL), S(V1), R(V5), R(V5/V6)+S(V1)] NONSPECIFIC T-WAVE ABNORMALITY ABNORMAL ECG UNCONFIRMED REPORT Electronically signed by : Demarcus Miranda MD 01/11/2023 15:07:06
[2023-01-10 20:10] LABS: Troponin I < 0.01 ng/ml (0.00-0.034)
--- NOTE | 2023-01-10 21:55 | PC.NURSE ---
Pt given sprite and crackers for PO challenge
== END 2023-01-10 22:31 | disposition still patient (30) ==
LOC: UTC 18:56 → ER 19:14
PROVIDERS: Emergency Provider Emergency Medicine; PCP Nurse Practitioner Family
DX: K21.9 Gastro-esophageal reflux disease without esophagitis (principal); E11.22 Type 2 diabetes mellitus with diabetic chronic kidney disease; N18.30 Chronic kidney disease, stage 3 unspecified; J44.9 Chronic obstructive pulmonary disease, unspecified; I12.9 Hypertensive chronic kidney disease with stage 1 through stage 4 chronic kidney disease, or unspecified chronic kidney disease; E78.5 Hyperlipidemia, unspecified; I25.10 Atherosclerotic heart disease of native coronary artery without angina pectoris; F31.81 Bipolar II disorder; Z87.891 Personal history of nicotine dependence; I44.4 Left anterior fascicular block
CPT/HCPCS: 71045; 80053; 83690; 84484; 85025; 85610; 85730; 93005; 96374; 99285

== ENCOUNTER → 2023-02-02 12:16 | Outpatient (CLI) | payer MEDICAID, SELFPAY ==
[2023-02-02 12:28] LABS: Microscopic, Urine URINE MICROSCOPIC (MICROSCOPIC)
[2023-02-02 13:47] LABS: Basophils % 0.3 % (0.1-2.0); Eosinophils # 0.4 K/mm3 (0.0-0.4); Eosinophils % 4.1 % (0.1-12.0); Hemoglobin 9.6 g/dL (12.2-16.2); Lymphocytes # 1.6 K/mm3 (0.7-4.5); Lymphocytes % 17.3 % (10-50); Mean Corpuscular Hemoglobin 27.6 pg (27.0-31.2); Mean Platelet Volume 9.9 fl (7.4-10.4); Monocytes # 0.3 K/mm3 (0.1-1.0); Monocytes % 3.4 % (1.7-9.3); Neutrophils # 6.9 K/mm3 (1.8-7.8); Neutrophils % 74.9 % (37.0-80.0); Platelet Count 244 K/mm3 (142-424); Red Blood Count 3.47 M/mm3 (4.20-5.40); Red Cell Distribution Width 15.8 % (11.5-17.5); White Blood Count 9.2 K/mm3 (4.8-10.8)
[2023-02-02 14:15] LABS: Hematocrit 29.8 % (37.0-47.0)
[2023-02-02 14:47] LABS: Alanine Aminotransferase 20 U/L (12-78); Albumin Level 3.9 g/dl (3.5-5.0); Alkaline Phosphatase 154 U/L (38-126); Aspartate Amino Transferase 21 U/L (14-36); Bilirubin,Total 0.2 mg/dl (0.2-1.3); Blood Urea Nitrogen 53 mg/dl (7-17); Calcium 8.8 mg/dl (8.4-10.2); Carbon Dioxide 21 mmol/L (22.0-30.0); Chloride 107 mmol/L (98-107); Chol/HDL Ratio 4.3 (1-3.5); Cholesterol 152 mg/dl (140-200); Estimated Glomerular Filt Rate 12 ml/min (>60); GFR (African American) 15 ML/MIN (>60); Globulin 3.8 g/dL (1.3-3.2); Glucose 251 mg/dl (74-100); HDL Cholesterol 35 mg/dl (40-60); Sodium 142 mmol/L (136-145); Total Protein,Serum 7.7 g/dl (6.3-8.2); Triglycerides 236 mg/dl (30-150); VLDL Cholesterol 47 mg/dL (0-40)
[2023-02-02 14:48] LABS: Albumin Level 3.9 g/dl (3.5-5.0); Anion Gap 17.9 mEq/L (5-15); Blood Urea Nitrogen 53 mg/dl (7-17); Calcium 8.9 mg/dl (8.4-10.2); Carbon Dioxide 21 mmol/L (22.0-30.0); Chloride 108 mmol/L (98-107); Estimated Glomerular Filt Rate 12 ml/min (>60); GFR (African American) 15 ML/MIN (>60); Glucose 249 mg/dl (74-100); Phosphorous 4.3 mg/dl (2.5-4.5); Potassium 4.9 mmoL/L (3.5-5.1); Sodium 142 mmol/L (136-145)
[2023-02-02 14:49] LABS: Appearance,Urine CLEAR (Clear); Bilirubin,Urine Negative (Negative); Blood, Urine 1+ (Negative); Color,Urine YELLOW (Yellow); Glucose,Urine (UA) 1+ (Negative); Ketones,Urine Negative (Negative); Leukocyte Esterase,Urine Negative (Negative); Nitrate,Urine Negative (Negative); Protein,Urine 2+ (Negative); Urobilinogen,Urine 0.2 EU/dl (0.2)
[2023-02-02 14:58] LABS: Direct LDL Cholesterol 73.07 mg/dL (100-129)
[2023-02-02 15:04] LABS: 25-OH Vitamin D, Total 33.3 ng/mL (30-100)
[2023-02-02 15:12] LABS: Free T4 (Free Thyroxine) 0.97 ng/dl (0.78-2.19)
[2023-02-02 15:19] LABS: RBC,Urine Occasional #/hpf (0-3); WBC,Urine Occasional #/hpf (0-3)
[2023-02-02 16:01] LABS: Folate 5.25 ng/mL
[2023-02-02 16:07] LABS: Creatinine,Urine Random 71 mg/dL (Not Estab.)
[2023-02-02 16:31] LABS: Hemoglobin A1C 6.9 % (4.0-6.0)
[2023-02-02 17:14] LABS: Iron 46 ug/dL (37-170)
[2023-02-02 17:34] LABS: Total Iron Binding Capacity 290 ug/dL (265-497)
[2023-02-02 17:49] LABS: Ferritin 26.1 ng/ml (6.24-137)
[2023-02-05 16:13] LABS: Vitamin B1 73.8 nmol/L (66.5-200.0)
[2023-02-06 16:14] LABS: Vitamin E Gamma Tocopherol 3.1 mg/L (0.5-5.5)
[2023-02-07 14:15] LABS: Vitamin A 43.5 ug/dL (20.1-62.0)
[2023-02-09 08:37] LABS: Methylmalonic Acid 498 nmol/L (0-378)
[2023-02-12 16:14] LABS: Nicotine 37.7 ng/mL (.)
== END ==
PROVIDERS: Physician Assistant; PCP Nurse Practitioner Family; Visit Provider Internal Medicine Nephrology
DX: N18.4 Chronic kidney disease, stage 4 (severe) (principal); N18.5 Chronic kidney disease, stage 5; Z01.818 Encounter for other preprocedural examination; E66.9 Obesity, unspecified; Z68.41 Body mass index [BMI] 40.0-44.9, adult; Z79.899 Other long term (current) drug therapy
CPT/HCPCS: 36415; 80053; 80061; 80069; 80323; 81001; 82306; 82570; 82728; 82746; 83036; 83540; 83550; 83921; 84155; 84425; 84439; 84443; 84446; 84590; 85025; G0480

== ENCOUNTER 2023-03-12 11:18 | Emergency (ER) | payer MEDICAID, SELFPAY ==
[2023-03-12] VITALS (17 sets, daily range): BP systolic 133–167; BP diastolic 49–95; PULSE 82–95; RESP 20–24; TEMP 36.6–36.8; O2SAT 85–96; BMI 44.6
--- NOTE | 2023-03-12 11:49 | EXP.UTC ---
Discharge Plan Disposition Patient Disposition: Xfer Short-Term Hosp Prescriptions Prescriptions: No Action amlodipine 10 mg tablet 10 mg PO DAILY (DME) OneTouch Verio test strips Strip See Rx Instructions .ROUTE .MEDSUPPLY Qty: 10 Rx Instructions: As directed Lokelma 10 gram powder in packet 10 g PO DAILY irbesartan 150 mg tablet 150 mg PO DAILY carvedilol 25 mg tablet 25 mg PO BID Qty: 90 1RF Rx Instructions: TAKE ONE TABLET BY MOUTH 2 TIMES A DAY WITH FOOD Humulin 70/30 U-100 Insulin 100 unit/mL (70-30) suspension 62 ml SQ TID Rx Instructions: 62 UNITS FOR BREAKFAST , LUNCH 62 UNITS, DINNER 45 UNITS fluticasone propionate [Flonase Allergy Relief] 50 mcg/actuation spray,suspension 1 spray intranasal DAILY Qty: 16 2RF Rx Instructions: administer into each nostril loratadine [Claritin] 10 mg tablet 10 mg PO DAILY Qty: 30 3RF (DME) insulin syringe-needle U-100 [BD Veo Insulin Syringe UF] 1 mL 31 gauge x 15/64 syringe 1 ml .ROUTE .MEDSUPPLY Qty: 10 Rx Instructions: As directed (DME) insulin syringe-needle U-100 [BD Insulin Syringe Ultra-Fine] 1 mL 31 gauge x 5/16 syringe 1 ml .ROUTE .MEDSUPPLY Qty: 10 Rx Instructions: As directed (DME) pen needle, diabetic [BD Ultra-Fine Mini Pen Needle] 31 gauge x 3/16 needle See Rx Instructions .ROUTE .MEDSUPPLY Qty: 50 Rx Instructions: As directed ondansetron 4 mg tablet,disintegrating 4 mg PO Q8H PRN (Reason: nausea and vomiting) 4 Days Qty: 60 1RF omeprazole 40 mg capsule,delayed release(DR/EC) See Rx Instructions .ROUTE .COMPLEX Qty: 30 2RF Dose Instruction: TAKE ONE CAPSULE BY MOUTH ONCE A DAY Rx Instructions: TAKE ONE CAPSULE BY MOUTH ONCE A DAY quetiapine [Seroquel] 200 mg tablet 200 mg PO HS Qty: 30 2RF lamotrigine 100 mg tablet 150 mg PO BID Qty: 60 1RF (DME) blood-glucose sensor 1 EACH device See Rx Instructions SQ .MEDSUPPLY Rx Instructions: As directed (DME) blood-glucose meter,continuous 1 EACH misc See Rx Instructions MISCELLANE .MEDSUPPLY Rx Instructions: As directed calcium carbonate 500 MG tablet 500 mg PO DAILY atorvastatin 80 mg tablet See Rx Instructions .ROUTE .COMPLEX Rx Instructions: TAKE ONE TABLET BY MOUTH ONCE A DAY FOR CHOLESTEROL cholecalciferol (vitamin D3) 50 mcg (2,000 unit) capsule See Rx Instructions .ROUTE .COMPLEX Rx Instructions: TAKE ONE CAPSULE BY MOUTH ONCE A DAY (DME) Dexcom G6 Transmitter Device See Rx Instructions MISCELLANEOUS Rx Instructions: USE DIRECTED furosemide 80 mg Tablet 80 mg PO BID cetirizine 10 mg tablet See Rx Instructions .ROUTE .COMPLEX Rx Instructions: TAKE ONE TABLET BY MOUTH ONCE A DAY NEEDED FOR ALLERGY SYMPTOMS polyethylene glycol 3350 17 gram/dose powder See Rx Instructions .ROUTE .COMPLEX Rx Instructions: MIX 17 GRAMS IN 8 OUNCES OF WATER AND DRINK ONCE A DAY Referrals Follow up/Referrals: Dyllan Gil APRN [Primary Care Provider] - See instructions Clinical Impressions Clinical Impression: CKD (chronic kidney disease), Acute uremia, Acute hypoxic respiratory failure, Shortness of breath Stand Alone Forms Stand Alone Forms: Transfer Record - ED Discharge ED Provider[place] Davin Mak [facility] General Stated complaint: congestion and cough Mode of Arrival: Ambulatory Source of Information: Patient Limitations: No Limitations Time Seen by Provider: 03/12/23 11:59 Description of Symptoms (Recalled from Triage Doc. by RN): PATIENT C/O SOA AND COUGH. SHE REPORTS HAVING A GASTRIC SLEEVE PERFORMED AT [facility] ON THURSDAY AND WAS RELEASED YESTERDAY HEENT Symptoms (Recalled from RN notes): No Resp Symptoms (Recalled from RN notes): Yes Skin Symptoms (Recalled from RN notes): No MS Symptoms (Recalled from RN notes): No
--- NOTE | 2023-03-12 11:55 | PC.NURSE ---
PATIENT SENT TO ER PER Sierra LEON APRN FOR FURTHER EVALUATION. REPORT GIVEN TO DR. ANDREWS BY Sierra LEON APRN. PATIENT TRANSPORTED TO ER VIA WHEELCHAIR WITH [facility] STAFF ASSIST. FAMILY AT BEDSIDE
--- NOTE | 2023-03-12 12:26 | XR_ITS ---
FINAL REPORT CLINICAL HISTORY: Shortness of breath COMPARISON: 01/10/2023 FINDINGS: The heart size is normal. The mediastinum is normal. The lungs are a little underinflated. There is no focal infiltrate or edema. There are no pleural effusions. There is no pneumothorax. There is no osseous abnormality. IMPRESSION: No acute cardiopulmonary process Reviewed, Interpreted and Dictated by Aj Quiroz MD Transcribed by Ping Espinoza Authenticated and [facility]
--- NOTE | 2023-03-12 12:32 | HMH.EDGENADL ---
Discharge Plan Disposition Patient Disposition: Xfer Short-Term Hosp Prescriptions Prescriptions: No Action amlodipine 10 mg tablet 10 mg PO DAILY (DME) OneTouch Verio test strips Strip See Rx Instructions .ROUTE .MEDSUPPLY Qty: 10 Rx Instructions: As directed Lokelma 10 gram powder in packet 10 g PO DAILY irbesartan 150 mg tablet 150 mg PO DAILY carvedilol 25 mg tablet 25 mg PO BID Qty: 90 1RF Rx Instructions: TAKE ONE TABLET BY MOUTH 2 TIMES A DAY WITH FOOD Humulin 70/30 U-100 Insulin 100 unit/mL (70-30) suspension 62 ml SQ TID Rx Instructions: 62 UNITS FOR BREAKFAST , LUNCH 62 UNITS, DINNER 45 UNITS fluticasone propionate [Flonase Allergy Relief] 50 mcg/actuation spray,suspension 1 spray intranasal DAILY Qty: 16 2RF Rx Instructions: administer into each nostril loratadine [Claritin] 10 mg tablet 10 mg PO DAILY Qty: 30 3RF (DME) insulin syringe-needle U-100 [BD Veo Insulin Syringe UF] 1 mL 31 gauge x 15/64 syringe 1 ml .ROUTE .MEDSUPPLY Qty: 10 Rx Instructions: As directed (DME) insulin syringe-needle U-100 [BD Insulin Syringe Ultra-Fine] 1 mL 31 gauge x 5/16 syringe 1 ml .ROUTE .MEDSUPPLY Qty: 10 Rx Instructions: As directed (DME) pen needle, diabetic [BD Ultra-Fine Mini Pen Needle] 31 gauge x 3/16 needle See Rx Instructions .ROUTE .MEDSUPPLY Qty: 50 Rx Instructions: As directed ondansetron 4 mg tablet,disintegrating 4 mg PO Q8H PRN (Reason: nausea and vomiting) 4 Days Qty: 60 1RF omeprazole 40 mg capsule,delayed release(DR/EC) See Rx Instructions .ROUTE .COMPLEX Qty: 30 2RF Dose Instruction: TAKE ONE CAPSULE BY MOUTH ONCE A DAY Rx Instructions: TAKE ONE CAPSULE BY MOUTH ONCE A DAY quetiapine [Seroquel] 200 mg tablet 200 mg PO HS Qty: 30 2RF lamotrigine 100 mg tablet 150 mg PO BID Qty: 60 1RF (DME) blood-glucose sensor 1 EACH device See Rx Instructions SQ .MEDSUPPLY Rx Instructions: As directed (DME) blood-glucose meter,continuous 1 EACH misc See Rx Instructions MISCELLANE .MEDSUPPLY Rx Instructions: As directed calcium carbonate 500 MG tablet 500 mg PO DAILY atorvastatin 80 mg tablet See Rx Instructions .ROUTE .COMPLEX Rx Instructions: TAKE ONE TABLET BY MOUTH ONCE A DAY FOR CHOLESTEROL cholecalciferol (vitamin D3) 50 mcg (2,000 unit) capsule See Rx Instructions .ROUTE .COMPLEX Rx Instructions: TAKE ONE CAPSULE BY MOUTH ONCE A DAY (DME) Dexcom G6 Transmitter Device See Rx Instructions MISCELLANEOUS Rx Instructions: USE DIRECTED furosemide 80 mg Tablet 80 mg PO BID cetirizine 10 mg tablet See Rx Instructions .ROUTE .COMPLEX Rx Instructions: TAKE ONE TABLET BY MOUTH ONCE A DAY NEEDED FOR ALLERGY SYMPTOMS polyethylene glycol 3350 17 gram/dose powder See Rx Instructions .ROUTE .COMPLEX Rx Instructions: MIX 17 GRAMS IN 8 OUNCES OF WATER AND DRINK ONCE A DAY Referrals Follow up/Referrals: Dyllan Gil APRN [Primary Care Provider] - See instructions Clinical Impressions Clinical Impression: CKD (chronic kidney disease), Acute uremia, Acute hypoxic respiratory failure, Shortness of breath Discharge ED Provider: Davin Mak General Adult HPI <Graham Tong MD - Last Filed: 03/12/23 15:15> General Stated complaint: congestion and cough Time Seen by Provider: 03/12/23 11:59 Mode of Arrival: Ambulatory Source of Information: Patient Limitations: No Limitations Description of Symptoms (Recalled from ER Triage Doc. by RN): PATIENT C/O SOA AND COUGH. SHE REPORTS HAVING [facility] AND WAS RELEASED YESTERDAY History of Present Illness HPI narrative: 47-year-old female with history of hypertension, hyperlipidemia, diabetes resulting in stage V CKD currently being followed for aldair
[2023-03-12 13:13] LABS: Coronavirus 19, PCR Not Detected (NotDetected); Influenza A, PCR Not Detected (NotDetected); Influenza B, PCR Not Detected (NotDetected)
[2023-03-12 13:19] LABS: Basophils % 0.2 % (0.1-2.0); Eosinophils # 0.1 K/mm3 (0.0-0.4); Eosinophils % 0.4 % (0.1-12.0); Hemoglobin 8.6 g/dL (12.2-16.2); Lymphocytes # 1.5 K/mm3 (0.7-4.5); Lymphocytes % 9.7 % (10-50); Mean Corpuscular HGB Conc 33.1 g/dL (31.8-35.4); Mean Corpuscular Hemoglobin 28.6 pg (27.0-31.2); Mean Corpuscular Volume 86.6 fl (81-99); Mean Platelet Volume 9.5 fl (7.4-10.4); Monocytes # 0.6 K/mm3 (0.1-1.0); Monocytes % 4.1 % (1.7-9.3); Neutrophils # 12.8 K/mm3 (1.8-7.8); Neutrophils % 85.6 % (37.0-80.0); Platelet Count 282 K/mm3 (142-424); Red Cell Distribution Width 16.3 % (11.5-17.5)
[2023-03-12 13:23] LABS: MANUAL DIFFERENTIAL MANUAL DIFFERENTIAL (MANUAL DIFF)
[2023-03-12 13:29] LABS: Alanine Aminotransferase 17 U/L (12-78); Albumin Level 4.4 g/dl (3.5-5.0); Albumin/Globulin Ratio 1.1 (1.1-1.8); Alkaline Phosphatase 126 U/L (38-126); Anion Gap 21.3 mEq/L (5-15); Aspartate Amino Transferase 37 U/L (14-36); Carbon Dioxide 20 mmol/L (22.0-30.0); Chloride 104 mmol/L (98-107); Creatinine Clearance Estimated 15 mL/min (50-200); Estimated Glomerular Filt Rate 12 ml/min (>60); GFR (African American) 14 ML/MIN (>60); Glucose 137 mg/dl (74-100); Lactic Acid 1.3 mmol/L (0.7-2.1); Potassium 5.3 mmoL/L (3.5-5.1); Sodium 140 mmol/L (136-145); Total Protein,Serum 8.4 g/dl (6.3-8.2)
[2023-03-12 13:30] LABS: Bilirubin,Total 0.1 mg/dl (0.2-1.3)
[2023-03-12 13:31] LABS: Blood Urea Nitrogen 109 mg/dl (7-17)
[2023-03-12 13:32] LABS: Lymphocytes % 10 % (10-50); Microcytosis 1+; Monocytes % 3 % (2-9); Neutrophils % 87 % (42-76); Platelet Estimate Normal; Total Cells Counted 100
[2023-03-12 13:34] LABS: D-Dimer 1.42 ug/mL (0.0-0.5)
--- NOTE | 2023-03-12 13:41 | ECG_ITS ---
APPROVED REPORT Exam: Resting ECG HR:83 bpm ECG Measurements Heart Rate 83 AXES ND 135 P 128 QRSd 102 QRS -22 QT 363 T 158 QTc 403 Conclusion SINUS RHYTHM BORDERLINE LEFT AXIS DEVIATION [QRS AXIS < -20] LOW QRS VOLTAGE IN PRECORDIAL LEADS [QRS DEFLECTION < 1.0 mV IN CHEST LEADS] PATTERN CONSISTENT WITH PULMONARY DISEASE INCOMPLETE RIGHT BUNDLE BRANCH BLOCK [90+ ms QRS DURATION, TERMINAL R IN V1/V2, 40+ ms S IN I/aVL/V4/V5/V6] MODERATE VOLTAGE CRITERIA FOR LVH, CONSIDER NORMAL VARIANT [MEETS CRITERIA IN ONE OF: R(aVL), S(V1), R(V5), R(V5/V6)+S(V1)] MODERATE T-WAVE ABNORMALITY, CONSIDER LATERAL ISCHEMIA [-0.1+ mV T-WAVE IN I/aVL/V5/V6] ABNORMAL ECG UNCONFIRMED REPORT Electronically signed by : Demarcus Miranda MD 03/12/2023 20:55:56
[2023-03-12 13:42] LABS: POC Glucose,Bedside 134 (70-110)
[2023-03-12 13:43] LABS: NT Pro Brain Natriuretic Pep. 1480 pg/mL (0-125)
[2023-03-12 13:46] LABS: VBG Base Excess -10.8 mmol/L (-2.4-2.3); VBG HCO3 16.6 mmol/L (23-30); VBG Oxygen Saturation 69.8 % (50-70); VBG PCO2 39.6 mmol/L (35-51); VBG PH 7.24 mmol/L (7.31-7.41); VBG PO2 40.7 mmol/L (28-40); VBG Total CO2 17.8 mmol/L (23-27)
[2023-03-12 13:50] LABS: Troponin I < 0.01 ng/ml (0.00-0.034)
--- NOTE | 2023-03-12 14:26 | PC.NURSE ---
calling [facility]ely for possible pt transfer
--- NOTE | 2023-03-12 14:41 | PC.NURSE ---
Called transfer center for transfer of patient to [facility]. Gave info on patient and reason for transfer. Person said they would contact Hospitalist and Surgeon and call back.
[2023-03-12 15:45] LABS: Troponin I < 0.01 ng/ml (0.00-0.034)
--- NOTE | 2023-03-12 15:46 | PC.NURSE ---
another call made out to [facility] transfer center point for possible pt transfer per Nasima TUTTLE
--- NOTE | 2023-03-12 16:02 | PC.NURSE ---
No call back from transfer center, called house superviser at [facility] and she is going to work on situation.
--- NOTE | 2023-03-12 16:26 | PC.NURSE ---
on phone with [facility]
--- NOTE | 2023-03-12 16:57 | PC.NURSE ---
Report called to Sudha at [facility]. EMS notified of transfer.
== END 2023-03-12 18:38 | disposition short-term general hospital (02) ==
LOC: UTC 11:21 → ER 11:53
PROVIDERS: Emergency Medicine; Emergency Provider Emergency Medicine; PCP Nurse Practitioner Family
DX: J96.01 Acute respiratory failure with hypoxia (principal); N18.5 Chronic kidney disease, stage 5; R39.2 Extrarenal uremia; R05.9 Cough, unspecified; E11.22 Type 2 diabetes mellitus with diabetic chronic kidney disease; E78.5 Hyperlipidemia, unspecified; I25.10 Atherosclerotic heart disease of native coronary artery without angina pectoris; J44.9 Chronic obstructive pulmonary disease, unspecified; K21.9 Gastro-esophageal reflux disease without esophagitis; Z98.84 Bariatric surgery status; Z87.891 Personal history of nicotine dependence; I12.0 Hypertensive chronic kidney disease with stage 5 chronic kidney disease or end stage renal disease; Z79.4 Long term (current) use of insulin
CPT/HCPCS: 36415; 71045; 80053; 82803; 82962; 83605; 83880; 84484; 85007; 85025; 85378; 87040; 87636; 93005; 96365; 96366; 96375; 99291

== ENCOUNTER → 2023-03-17 14:51 | Outpatient (CLI) | payer MEDICAID, SELFPAY ==
[2023-03-17 16:44] LABS: Chloride 106 mmol/L (98-107); Sodium 141 mmol/L (136-145)
[2023-03-17 16:45] LABS: Potassium 4.4 mmoL/L (3.5-5.1)
[2023-03-17 16:47] LABS: Blood Urea Nitrogen 70 mg/dl (7-17); Estimated Glomerular Filt Rate 17 ml/min (>60); GFR (African American) 20 ML/MIN (>60)
[2023-03-17 16:48] LABS: Anion Gap 16.4 mEq/L (5-15); Calcium 9.2 mg/dl (8.4-10.2); Carbon Dioxide 23 mmol/L (22.0-30.0); Glucose 57 mg/dl (74-100); Magnesium 2.2 mg/dl (1.6-2.3); Phosphorous 4.5 mg/dl (2.5-4.5)
== END ==
PROVIDERS: Physician Assistant; PCP Nurse Practitioner Family; Visit Provider Nurse Practitioner Psychiatric/Mental Health
DX: N18.4 Chronic kidney disease, stage 4 (severe) (principal)
CPT/HCPCS: 36415; 80048; 83735; 84100

== ENCOUNTER → 2023-03-18 13:57 | Outpatient (CLI) | payer MEDICAID, SELFPAY ==
[2023-03-18 14:09] LABS: Microscopic, Urine URINE MICROSCOPIC (MICROSCOPIC)
[2023-03-18 14:22] LABS: Blood Urea Nitrogen 69 mg/dl (7-17); Carbon Dioxide 22 mmol/L (22.0-30.0); Chloride 104 mmol/L (98-107); Estimated Glomerular Filt Rate 17 ml/min (>60); GFR (African American) 20 ML/MIN (>60); Phosphorous 4.6 mg/dl (2.5-4.5)
[2023-03-18 14:23] LABS: Albumin Level 4.2 g/dl (3.5-5.0); Anion Gap 15.5 mEq/L (5-15); Calcium 9.2 mg/dl (8.4-10.2); Glucose 55 mg/dl (74-100); Potassium 4.5 mmoL/L (3.5-5.1); Sodium 137 mmol/L (136-145)
[2023-03-18 14:33] LABS: Appearance,Urine CLEAR (Clear); Bilirubin,Urine Negative (Negative); Blood, Urine TRACE-I (Negative); Color,Urine YELLOW (Yellow); Glucose,Urine (UA) Negative (Negative); Ketones,Urine Negative (Negative); Leukocyte Esterase,Urine Negative (Negative); Nitrate,Urine Negative (Negative); Protein,Urine 2+ (Negative); Urobilinogen,Urine 0.2 EU/dl (0.2)
[2023-03-18 14:42] LABS: Basophils # 0.1 K/mm3 (0-0.2); Basophils % 0.7 % (0.1-2.0); Eosinophils # 0.3 K/mm3 (0.0-0.4); Eosinophils % 3.1 % (0.1-12.0); Hematocrit 29.8 % (37.0-47.0); Hemoglobin 9.2 g/dL (12.2-16.2); Lymphocytes # 1.5 K/mm3 (0.7-4.5); Lymphocytes % 14.3 % (10-50); Mean Corpuscular HGB Conc 31.1 g/dL (31.8-35.4); Mean Corpuscular Hemoglobin 27.9 pg (27.0-31.2); Mean Corpuscular Volume 89.9 fl (81-99); Mean Platelet Volume 12.2 fl (7.4-10.4); Monocytes # 0.6 K/mm3 (0.1-1.0); Monocytes % 5.2 % (1.7-9.3); Neutrophils # 8.3 K/mm3 (1.8-7.8); Neutrophils % 76.8 % (37.0-80.0); Platelet Count 299 K/mm3 (142-424); Red Blood Count 3.31 M/mm3 (4.20-5.40); Red Cell Distribution Width 16.8 % (11.5-17.5); White Blood Count 10.8 K/mm3 (4.8-10.8)
[2023-03-18 14:54] LABS: Bacteria,Urine Trace /lpf; Hyaline Casts,Urine Occasional #/lpf (0); RBC,Urine Occasional #/hpf (0-3); WBC,Urine Occasional #/hpf (0-3)
== END ==
PROVIDERS: PCP Nurse Practitioner Family; Visit Provider Internal Medicine Nephrology
DX: N18.5 Chronic kidney disease, stage 5 (principal)
CPT/HCPCS: 80069; 81001; 85025

== ENCOUNTER 2023-04-16 13:41 | Outpatient (CLI) | payer MEDICAID, SELFPAY ==
--- NOTE | 2023-04-16 14:00 | PC.NURSE ---
1400-pt states she does not want premeds unless she absolutely needs them.
[2023-04-16 14:05] VITALS: BP 160/78; PULSE 100; RESP 18; O2SAT 100
[2023-04-16] MEDS: diphenhydrAMINE 25MG CAPSULE 25 MG PO (14:31)
[2023-04-16] MEDS: ACETAMINOPHEN 325MG TAB 650 MG (14:31)
--- NOTE | 2023-04-16 14:31 | PC.NURSE ---
1431-pt started having mild itching on left arm, no rash noted at this time;pt states she does want the benadryl and tylenol for the itching;instructed pt for the remainder of the doses pt to receive premeds for the itching.
[2023-04-16 14:40] VITALS: BP 162/84; PULSE 102; RESP 18; O2SAT 100
== END 2023-04-16 14:40 | disposition home or self-care (01) ==
LOC: INF 13:42
PROVIDERS: PCP Nurse Practitioner Family; Visit Provider Internal Medicine Nephrology
DX: K91.89 Other postprocedural complications and disorders of digestive system (principal); D50.8 Other iron deficiency anemias; N18.5 Chronic kidney disease, stage 5
CPT/HCPCS: 96365

== ENCOUNTER 2023-04-29 15:37 | Outpatient (CLI) | payer MEDICAID, SELFPAY ==
[2023-04-29 15:43] LABS: Microscopic, Urine URINE MICROSCOPIC (MICROSCOPIC)
[2023-04-29 16:07] LABS: Hematocrit 34.4 % (37.0-47.0); Hemoglobin 11.2 g/dL (12.2-16.2); Mean Corpuscular HGB Conc 32.7 g/dL (31.8-35.4); Mean Corpuscular Hemoglobin 28.4 pg (27.0-31.2); Mean Corpuscular Volume 86.6 fl (81-99); Platelet Count 142 K/mm3 (142-424); Red Blood Count 3.97 M/mm3 (4.20-5.40); Red Cell Distribution Width 17.3 % (11.5-17.5); White Blood Count 5.8 K/mm3 (4.8-10.8)
[2023-04-29 16:21] LABS: Appearance,Urine SL CLOUDY (Clear); Blood, Urine TRACE-I (Negative); Color,Urine YELLOW (Yellow); Glucose,Urine (UA) 1+ (Negative); Ketones,Urine TRACE (Negative); Leukocyte Esterase,Urine TRACE (Negative); Nitrate,Urine Negative (Negative); PH,Urine 5.5 (5.0-8.5); Protein,Urine 2+ (Negative); Specific Gravity, Urine >= 1.030 (1.005-1.030)
[2023-04-29 16:33] LABS: Bilirubin,Urine 1+ (Negative)
[2023-04-29 17:08] LABS: Bacteria,Urine Trace /lpf; WBC,Urine Occasional #/hpf (0-3)
[2023-04-29 18:30] LABS: Albumin Level 3.6 g/dl (3.5-5.0); Anion Gap 7.7 mEq/L (5-15); Blood Urea Nitrogen 18 mg/dl (7-17); Calcium 8.1 mg/dl (8.4-10.2); Carbon Dioxide 25 mmol/L (22.0-30.0); Chloride 104 mmol/L (98-107); Estimated Glomerular Filt Rate 18 ml/min (>60); GFR (African American) 22 ML/MIN (>60); Glucose 188 mg/dl (74-100); Potassium 3.7 mmoL/L (3.5-5.1); Sodium 133 mmol/L (136-145)
[2023-04-29 19:18] LABS: Creatinine,Urine Random 341 mg/dL (Not Estab.)
[2023-04-29 19:20] LABS: Phosphorous 2.1 mg/dl (2.5-4.5)
== END 2023-04-29 23:59 ==
LOC: LAB 15:38
PROVIDERS: PCP Nurse Practitioner Family; Visit Provider Internal Medicine Nephrology
DX: N18.5 Chronic kidney disease, stage 5 (principal)
CPT/HCPCS: 80069; 81001; 82570; 84155; 85014; 85018; 85048; 85049

== ENCOUNTER 2023-05-01 12:40 | Outpatient (CLI) | payer MEDICAID, SELFPAY ==
[2023-05-01] MEDS: diphenhydrAMINE 25MG CAPSULE 25 MG PO (12:48)
[2023-05-01] MEDS: ACETAMINOPHEN 325MG TAB 650 MG (12:48)
[2023-05-01 13:20] VITALS: BP 165/93; PULSE 81; RESP 18; O2SAT 100
[2023-05-01] MEDS: IRON SUCROSE COMPLEX 200 MG in 0.9 % SODIUM CHLORIDE 100 ML 220 MG IV (13:20)
[2023-05-01] MEDS: 0.9 % SODIUM CHLORIDE 50 ML 100 ML IV (13:20)
[2023-05-01 14:00] VITALS: BP 150/89; PULSE 84; RESP 18; O2SAT 100
== END 2023-05-01 14:00 | disposition home or self-care (01) ==
LOC: INF 12:41
PROVIDERS: PCP Nurse Practitioner Family; Visit Provider Internal Medicine Nephrology
DX: D50.8 Other iron deficiency anemias (principal); K91.89 Other postprocedural complications and disorders of digestive system; N18.5 Chronic kidney disease, stage 5
CPT/HCPCS: 96365; J1756

== ENCOUNTER 2023-05-08 12:43 | Outpatient (CLI) | payer MEDICAID, SELFPAY ==
[2023-05-08] MEDS: ACETAMINOPHEN 325MG TAB 650 MG (12:55)
[2023-05-08] MEDS: diphenhydrAMINE 25MG CAPSULE 25 MG PO (12:55)
[2023-05-08] MEDS: 0.9 % SODIUM CHLORIDE 50 ML 100 ML IV (12:59)
[2023-05-08 13:51] VITALS: BP 160/93; PULSE 87; RESP 17; O2SAT 100
[2023-05-08] MEDS: IRON SUCROSE COMPLEX 200 MG in 0.9 % SODIUM CHLORIDE 100 ML 220 MG IV (13:51)
[2023-05-08 14:31] VITALS: BP 150/97; PULSE 89; RESP 18; O2SAT 100
== END 2023-05-08 14:31 | disposition home or self-care (01) ==
LOC: INF 12:43
PROVIDERS: PCP Nurse Practitioner Family; Visit Provider Internal Medicine Nephrology
DX: K91.89 Other postprocedural complications and disorders of digestive system (principal); D50.8 Other iron deficiency anemias; N18.5 Chronic kidney disease, stage 5
CPT/HCPCS: 96365; J1756

== ENCOUNTER → 2023-05-11 09:00 | Outpatient (CLI) | payer MEDICAID, SELFPAY | LOC: SL 05-13 08:10 | PROVIDERS: PCP Nurse Practitioner Family; Visit Provider Nurse Practitioner Family | DX: G47.33 Obstructive sleep apnea (adult) (pediatric) (principal); G47.36 Sleep related hypoventilation in conditions classified elsewhere | CPT/HCPCS: G0399 ==

== ENCOUNTER 2023-05-22 12:45 | Outpatient (CLI) | payer MEDICAID, SELFPAY ==
[2023-05-22 12:53] VITALS: BP 151/70; PULSE 78; RESP 18; TEMP 36.4; O2SAT 98
[2023-05-22] MEDS: ACETAMINOPHEN 325MG TAB 650 MG (12:53)
[2023-05-22] MEDS: 0.9 % SODIUM CHLORIDE 50 ML IV (12:53)
[2023-05-22] MEDS: diphenhydrAMINE 25MG CAPSULE 25 MG PO (12:53)
[2023-05-22] MEDS: IRON SUCROSE COMPLEX 200 MG in 0.9 % SODIUM CHLORIDE 100 ML 220 MG IV (14:10)
[2023-05-22 14:44] VITALS: BP 153/74; PULSE 79; RESP 18; O2SAT 97
== END 2023-05-22 14:48 | disposition home or self-care (01) ==
LOC: INF 12:46
PROVIDERS: PCP Nurse Practitioner Family; Visit Provider Internal Medicine Nephrology
DX: K91.89 Other postprocedural complications and disorders of digestive system (principal); D50.8 Other iron deficiency anemias
CPT/HCPCS: 96365; J1756

== ENCOUNTER 2023-05-29 12:42 | Outpatient (CLI) | payer MEDICAID, SELFPAY ==
[2023-05-29] MEDS: diphenhydrAMINE 25MG CAPSULE 25 MG PO (13:00)
[2023-05-29] MEDS: ACETAMINOPHEN 325MG TAB 650 MG PO (13:00)
[2023-05-29 13:30] VITALS: BP 142/71; PULSE 72; RESP 18; TEMP 36.8; O2SAT 98
[2023-05-29] MEDS: SODIUM CHLORIDE 0.9% 50ML BAG 50 ML IV (13:30)
[2023-05-29] MEDS: IRON SUCROSE COMPLEX 200 MG in 0.9 % SODIUM CHLORIDE 100 ML 220 MG IV (13:30)
[2023-05-29 14:00] VITALS: BP 133/76; PULSE 72; RESP 18; O2SAT 99
== END 2023-05-29 14:15 | disposition home or self-care (01) ==
LOC: INF 12:43
PROVIDERS: PCP Nurse Practitioner Family; Visit Provider Internal Medicine Nephrology
DX: N18.5 Chronic kidney disease, stage 5 (principal); K91.89 Other postprocedural complications and disorders of digestive system; D50.8 Other iron deficiency anemias
CPT/HCPCS: 96365; J1756

== ENCOUNTER 2023-06-17 22:05 | Outpatient (CLI) | payer MEDICAID, SELFPAY | END 2023-06-17 23:59 | LOC: LAB.DROPOF 22:05 | PROVIDERS: PCP Nurse Practitioner Family; Visit Provider Nurse Practitioner Family | DX: N39.0 Urinary tract infection, site not specified (principal); B96.1 Klebsiella pneumoniae [K. pneumoniae] as the cause of diseases classified elsewhere | CPT/HCPCS: 87086 ==

== ENCOUNTER 2023-06-25 13:11 | Outpatient (CLI) | payer MEDICAID, SELFPAY ==
[2023-06-25 13:16] LABS: Microscopic, Urine URINE MICROSCOPIC (MICROSCOPIC)
[2023-06-25 13:51] LABS: Appearance,Urine CLEAR (Clear); Blood, Urine TRACE-I (Negative); Color,Urine YELLOW (Yellow); Glucose,Urine (UA) Negative (Negative); Ketones,Urine Negative (Negative); Leukocyte Esterase,Urine Negative (Negative); Nitrate,Urine Negative (Negative); Protein,Urine 2+ (Negative); Specific Gravity, Urine >= 1.030 (1.005-1.030)
[2023-06-25 13:52] LABS: Mean Corpuscular HGB Conc 31.7 g/dL (31.8-35.4); Mean Corpuscular Hemoglobin 29.3 pg (27.0-31.2); Mean Corpuscular Volume 92.4 fl (81-99); Platelet Count 160 K/mm3 (142-424); Red Blood Count 4.11 M/mm3 (4.20-5.40); Red Cell Distribution Width 17.8 % (11.5-17.5); White Blood Count 6.7 K/mm3 (4.8-10.8)
[2023-06-25 13:54] LABS: Bilirubin,Urine 1+ (Negative)
[2023-06-25 14:11] LABS: Bacteria,Urine Trace /lpf; Creatinine,Urine Random 249 mg/dL (Not Estab.); Hyaline Casts,Urine Occasional #/lpf (0)
[2023-06-25 14:24] LABS: Albumin Level 3.8 g/dl (3.5-5.0); Anion Gap 11.7 mEq/L (5-15); Blood Urea Nitrogen 29 mg/dl (7-17); Calcium 9.6 mg/dl (8.4-10.2); Carbon Dioxide 26 mmol/L (22.0-30.0); Chloride 111 mmol/L (98-107); Estimated Glomerular Filt Rate 18 ml/min (>60); GFR (African American) 22 ML/MIN (>60); Glucose 160 mg/dl (74-100); Phosphorous 3.3 mg/dl (2.5-4.5); Potassium 4.7 mmoL/L (3.5-5.1); Sodium 144 mmol/L (136-145)
== END 2023-06-25 23:59 ==
PROVIDERS: PCP Nurse Practitioner Family; Visit Provider Internal Medicine Nephrology
DX: N18.5 Chronic kidney disease, stage 5 (principal); N39.0 Urinary tract infection, site not specified; M79.674 Pain in right toe(s); B35.1 Tinea unguium; D64.9 Anemia, unspecified
CPT/HCPCS: 36415; 80069; 81001; 82570; 84155; 85014; 85018; 85048; 85049; 87102; 87206; 87220

== ENCOUNTER 2023-07-02 15:55 | Outpatient (POV) | payer MEDICAID, SELFPAY | END 2023-07-02 23:59 | disposition home or self-care (01) | LOC: SC 15:55 | PROVIDERS: Visit Provider Internal Medicine Nephrology | DX: Z00.00 Encounter for general adult medical examination without abnormal findings (principal) ==

== ENCOUNTER 2023-08-14 14:55 | Outpatient (CLI) | payer MEDICAID, SELFPAY ==
[2023-08-14 15:01] LABS: Microscopic, Urine URINE MICROSCOPIC (MICROSCOPIC)
[2023-08-14 15:22] LABS: Hematocrit 39.8 % (37.0-47.0); Hemoglobin 13.1 g/dL (12.2-16.2); Mean Corpuscular HGB Conc 32.8 g/dL (31.8-35.4); Mean Corpuscular Hemoglobin 30.2 pg (27.0-31.2); Mean Corpuscular Volume 92.2 fl (81-99); Platelet Count 212 K/mm3 (142-424); Red Blood Count 4.32 M/mm3 (4.20-5.40); Red Cell Distribution Width 17.1 % (11.5-17.5); White Blood Count 8.5 K/mm3 (4.8-10.8)
[2023-08-14 15:25] LABS: Appearance,Urine CLEAR (Clear); Bilirubin,Urine Negative (Negative); Blood, Urine TRACE-L (Negative); Color,Urine YELLOW (Yellow); Glucose,Urine (UA) Negative (Negative); Ketones,Urine Negative (Negative); Leukocyte Esterase,Urine Negative (Negative); Nitrate,Urine Negative (Negative); PH,Urine 5.5 (5.0-8.5); Protein,Urine 2+ (Negative); Specific Gravity, Urine >= 1.030 (1.005-1.030); Urobilinogen,Urine 0.2 EU/dl (0.2)
[2023-08-14 15:38] LABS: Creatinine,Urine Random 126 mg/dL (Not Estab.)
[2023-08-14 15:48] LABS: RBC,Urine Occasional #/hpf (0-3)
[2023-08-14 16:17] LABS: Chloride 113 mmol/L (98-107); Sodium 145 mmol/L (136-145)
[2023-08-14 16:18] LABS: Albumin Level 4.1 g/dl (3.5-5.0); Potassium 4.4 mmoL/L (3.5-5.1)
[2023-08-14 16:20] LABS: Anion Gap 12.4 mEq/L (5-15); Blood Urea Nitrogen 30 mg/dl (7-17); Carbon Dioxide 24 mmol/L (22.0-30.0); Estimated Glomerular Filt Rate 21 ml/min (>60); GFR (African American) 26 ML/MIN (>60)
[2023-08-14 16:21] LABS: Calcium 9.7 mg/dl (8.4-10.2); Glucose 113 mg/dl (74-100); Phosphorous 4.1 mg/dl (2.5-4.5)
== END 2023-08-14 23:59 | disposition home or self-care (01) ==
LOC: LAB 14:56
PROVIDERS: PCP Nurse Practitioner Family; Visit Provider Internal Medicine Nephrology
DX: N18.4 Chronic kidney disease, stage 4 (severe) (principal)
CPT/HCPCS: 36415; 80069; 81001; 82570; 84156; 85014; 85018; 85048; 85049

== ENCOUNTER 2023-08-28 09:14 | Outpatient (CLI) | payer MEDICAID, SELFPAY ==
[2023-08-28 09:20] LABS: Microscopic, Urine URINE MICROSCOPIC (MICROSCOPIC)
[2023-08-28 09:47] LABS: Basophils # 0.1 K/mm3 (0-0.2); Basophils % 1.1 % (0.1-2.0); Eosinophils # 0.3 K/mm3 (0.0-0.4); Eosinophils % 4.2 % (0.1-12.0); Hematocrit 36.7 % (37.0-47.0); Lymphocytes # 1.6 K/mm3 (0.7-4.5); Lymphocytes % 24.1 % (10-50); Mean Corpuscular HGB Conc 32.7 g/dL (31.8-35.4); Mean Corpuscular Hemoglobin 30.5 pg (27.0-31.2); Mean Corpuscular Volume 93.4 fl (81-99); Mean Platelet Volume 10.7 fl (7.4-10.4); Monocytes # 0.3 K/mm3 (0.1-1.0); Monocytes % 4.7 % (1.7-9.3); Neutrophils # 4.4 K/mm3 (1.8-7.8); Neutrophils % 65.9 % (37.0-80.0); Platelet Count 182 K/mm3 (142-424); Red Blood Count 3.93 M/mm3 (4.20-5.40); Red Cell Distribution Width 16.4 % (11.5-17.5); White Blood Count 6.6 K/mm3 (4.8-10.8)
[2023-08-28 09:56] LABS: Appearance,Urine CLEAR (Clear); Bilirubin,Urine Negative (Negative); Blood, Urine Negative (Negative); Color,Urine YELLOW (Yellow); Glucose,Urine (UA) Negative (Negative); Ketones,Urine Negative (Negative); Leukocyte Esterase,Urine Negative (Negative); Nitrate,Urine Negative (Negative); Protein,Urine 2+ (Negative); Specific Gravity, Urine 1.025 (1.005-1.030); Urobilinogen,Urine 0.2 EU/dl (0.2)
[2023-08-28 10:02] LABS: Creatinine,Urine Random 126 mg/dL (Not Estab.)
[2023-08-28 10:34] LABS: Bacteria,Urine Trace /lpf
[2023-08-28 11:19] LABS: Albumin Level 3.9 g/dl (3.5-5.0); Anion Gap 12.8 mEq/L (5-15); Blood Urea Nitrogen 37 mg/dl (7-17); Calcium 9.1 mg/dl (8.4-10.2); Carbon Dioxide 22 mmol/L (22.0-30.0); Chloride 112 mmol/L (98-107); Estimated Glomerular Filt Rate 17 ml/min (>60); GFR (African American) 20 ML/MIN (>60); Glucose 91 mg/dl (74-100); Phosphorous 5.3 mg/dl (2.5-4.5); Potassium 4.8 mmoL/L (3.5-5.1); Sodium 142 mmol/L (136-145)
== END 2023-08-28 23:59 | disposition home or self-care (01) ==
LOC: LAB 09:15
PROVIDERS: PCP Nurse Practitioner Family; Visit Provider Internal Medicine Nephrology
DX: N18.4 Chronic kidney disease, stage 4 (severe) (principal)
CPT/HCPCS: 36415; 80069; 81001; 82570; 84156; 85025

== ENCOUNTER 2023-08-28 16:00 | Outpatient (RCR) | payer MEDICAID, SELFPAY ==
--- NOTE | 2023-08-13 15:32 | HMH.PTOPWND ---
Rehab Outpt Wound Evaluation Rehab OP Wound Evaluation Start: 08/13/23 14:49 Freq: Status: Active Protocol: Document 08/13/23 15:11 BARBIE (Rec: 08/13/23 15:32 PHORLORE [id number]) E-signed By Edi Schulte, PT Subjective/History History History This is the initial PT eval for Melanie Healy, 48 yowf who presents with B LE edema for several years, but now worse x ~ 1-2 mos. She reports she had a fairly recent bariatric surgery and has lost ~ 90 lbs since then, She reports she has a home lymphedema pump, but now doesn't feel it helsp as much. She also had prior compression stockings, but they no longer fit now that she has lost weight. She does report prior PMH of DM, CKD. Subjective Subjective Pt reports pain 5/10 in B LE at this time, 8/10 at night. SHe reports frequent cramping pain in her legs at night as well. She has no TTP noted and no pitting edema currently . New diagnosis of cancer in past 12 No months? Lymphedema Eval Classification of Lymphedema Secondary Lymphedema Yes Stemmer's sign Stemmer's Sign no Stage of Lymphedema Lymphedema stages Stage II (Pitting edema, increased fibrosis w/ decreased pitting) Skin Changes Dry Skin Yes Skin Folds Yes Discoloration of Skin Yes Other Changes Yes Pain Scale Pain Scale (0-10) 8 Affected Extremities Areas Affected by Lymphedema/Edema Right Lower Extremity,Left Lower Extremity Lower Extremity Measurements Right MTP Measurement (cm) 21.0 Heel Measurement (cm) 32.1 10 cm Proximal to Lateral Malleoli 26.5 Measurement (cm) 20 cm Proximal to Lateral Malleoli 35.3 Measurement (cm) 30 cm Proximal to Lateral Malleoli 38.9 Measurement (cm) 40 cm Proximal to Lateral Malleoli 40.1 Measurement (cm) 50 cm Proximal to Lateral Malleoli 47.7 Measurement (cm) 60 cm Proximal to Lateral Malleoli 0 Measurement (cm) Lower Extremity Measurement Total (cm) 241.6 Left MTP Measurement (cm) 20.4 Heel Measurement (cm) 31.2 10 cm Proximal to Lateral Malleoli 29.8 Measurement (cm) 20 cm Proximal to Lateral Malleoli 37.5 Measurement (cm) 30 cm Proximal to Lateral Malleoli 40.3 Measurement (cm) 40 cm Proximal to Lateral Malleoli 43.4 Measurement (cm) 50 cm Proximal to Lateral Malleoli 50.8 Measurement (cm) 60 cm Proximal to Lateral Malleoli 0 Measurement (cm) Lower Extremity Measurement Total (cm) 253.4 Manual Lymphatic Drainage Treatment Area MLD Treatment Area Right Lower Extremity,Left Lower Extremity Wound Problems/Impairments Impairments Problems/Impairmments Increased Edema,Lymphedema Present,Subjective C/O Pain, Impaired Self Care/Self Management Prognosis Rehab Potential Good Clinical Impression Consistent with Diagnosis Yes Short Term Goals Number of Weeks 2 Decrease Lymphedema Yes: Mild fibrotic edema to B LE Decrease Subjective C/O Pain Yes: 6/10 at worst B LE Patient to Understand Lymphedema Yes Treatment and Exercises Decrease Girth Measurments by (cm) Yes: B LE total by 5 cm ea Pole Inspector Goals Number of Weeks 4 Decrease Lymphedema Yes: No fibrotic edema B LE Decrease Subjective C/O Pain Yes: 4/10 at worst B LE Patient to be Ind w/ HEP Yes Patient to be Ind w/ [place] Yes Compression Garments Patient to Adhere Lymphedema Precautions Yes Decrease Girth Measurments by (cm) Yes: B LE total by 15 cm ea Outpatient Therapy Plan of Care Treatment Plan May Include Therapeutic Exercise Including Home Yes Exercise Program Manual Therapy Techniques Yes Neuromuscular Re-education Yes Therapeutic Activities to Return to Yes Previous Functional/Work Level ADL/Self Care Education Yes Orthotics/Bracing/Splinting Yes Vasopneumatic Compression Pump Yes Manual Lymphatic Drainage Yes Eval/Re-Eval Yes Frequency Times per week 2 Duration Number of Weeks 4 Addendums This patient is a candidate for social No or vocational rehab? Patient/Guardian verbally acknowledges Yes understanding of treatment program and consents to further treatment? Patient/Guardian verbally acknowledges Yes understanding of diagnosis, prognosis and goals for treatment? Eval Complexity PT Charges 71448 - High Complexity PHYSICIAN CERTIFICATION: I certify the specified therapy services for Melanie Healy are required, authorized, and reviewed every 30 days.
== END 2023-08-28 17:10 | disposition home or self-care (01) ==
LOC: PT 16:00
PROVIDERS: Visit Provider Nurse Practitioner Family
DX: I89.0 Lymphedema, not elsewhere classified (principal)
CPT/HCPCS: 97140; 97163

== ENCOUNTER 2023-09-07 15:33 | Outpatient (POV) | payer MEDICAID, SELFPAY | END 2023-09-07 23:59 | disposition home or self-care (01) | LOC: SC 15:34 | PROVIDERS: Visit Provider Internal Medicine Nephrology | DX: Z00.00 Encounter for general adult medical examination without abnormal findings (principal) ==

== ENCOUNTER 2023-09-17 08:54 | Outpatient (CLI) | payer MEDICAID, SELFPAY ==
--- NOTE | 2023-09-17 15:38 | MM_ITS ---
PROCEDURE INFORMATION: Exam: MG Bilateral Screening 3D Mammography Exam date and time: 09/17/2023 3:31 PM Age: 48 years old Clinical indication: Screening. No family history of breast cancer. Surgical scars indicated in the axilla for surgery related to hidradenitis. TECHNIQUE: Imaging protocol: Bilateral Screening tomosynthesis and 2D mammography including computer-aided detection (CAD) when performed. COMPARISON: MG MM DIG SCREENING MAMM BI W/CAD 07/21/2022 2:34 PM FINDINGS: MAMMOGRAPHY: Breast composition: There are scattered areas of fibroglandular density. Mass: None. Architectural distortion: None. Calcifications: No suspicious calcifications. Asymmetric density: None. Skin thickening: None. Axillary adenopathy: None. IMPRESSION: No mammographic evidence of malignancy. Annual screening is recommended unless otherwise clinically indicated. BI-RADS Category 0: Incomplete: Need Additional Imaging Evaluation and/or Prior Mammograms for Comparison ASSESSMENT: BI-RADS Category 1: Negative
== END 2023-09-17 23:59 | disposition home or self-care (01) ==
LOC: RAD 08:55
PROVIDERS: PCP Internal Medicine Adolescent Medicine; Visit Provider Nurse Practitioner Family
DX: Z12.31 Encounter for screening mammogram for malignant neoplasm of breast (principal)
CPT/HCPCS: 77063; 77067

== ENCOUNTER 2023-09-23 10:11 | Outpatient (CLI) | payer MEDICAID, SELFPAY ==
--- NOTE | 2023-09-23 10:22 | XR_ITS ---
FINAL REPORT CLINICAL HISTORY: R ankle pain FINDINGS: RIGHT ANKLE 3 views of the right ankle were obtained. 2 orthopedic screws are seen in the medial malleolus. There is no acute fracture or dislocation. The mortise is intact. Visualized joint spaces are normally aligned. Soft tissues are unremarkable. IMPRESSION: Postoperative changes with no acute bony abnormality. Reviewed, Interpreted and Dictated by Aj Quiroz MD Transcribed by Shannon Connelly Authenticated and . [facility]
== END 2023-09-23 23:59 | disposition home or self-care (01) ==
LOC: RAD 10:12
PROVIDERS: PCP Nurse Practitioner Family; Visit Provider Nurse Practitioner Family
DX: M25.571 Pain in right ankle and joints of right foot (principal)
CPT/HCPCS: 73610

== ENCOUNTER 2023-11-03 12:41 | Outpatient (CLI) | payer MEDICAID, SELFPAY | END 2023-11-03 23:59 | disposition home or self-care (01) | LOC: LAB 12:42 | PROVIDERS: PCP Nurse Practitioner Family; Visit Provider Internal Medicine Nephrology | DX: Z00.00 Encounter for general adult medical examination without abnormal findings (principal) | CPT/HCPCS: 36415 ==

== ENCOUNTER 2023-11-14 16:29 | Emergency (ER) | payer MEDICAID, SELFPAY ==
[2023-11-14] VITALS (7 sets, daily range): BP systolic 126–176; BP diastolic 80–108; PULSE 80–84; RESP 18; TEMP 36.6; O2SAT 98–100; BMI 27.9
--- NOTE | 2023-11-14 16:44 | CT_ITS ---
PROCEDURE INFORMATION: Exam: CTA Neck With Contrast Exam date and time: 11/14/2023 5:14 PM Age: 48 years old Clinical indication: Stroke-like symptoms; Dizziness/giddiness; Additional info: Possible stroke, intractible dizziness TECHNIQUE: Imaging protocol: Computed tomographic angiography of the neck with contrast. Exam focused on the cervical segments of the vasculature. 3D rendering (Not supervised by radiologist): MIP and/or 3D reconstructed images were created by the technologist. Radiation optimization: All CT scans at this facility use at least one of these dose optimization techniques: automated exposure control; mA and/or kV adjustment per patient size (includes targeted exams where dose is matched to clinical indication); or iterative reconstruction. Contrast material: ISO 370; Contrast volume: 90 ml; Contrast route: INTRAVENOUS (IV); COMPARISON: CT ANGIO HEAD 11/14/2023 5:14 PM FINDINGS: Right common carotid artery: Calcification at the right common carotid bifurcation without hemodynamically significant stenosis. Right internal carotid artery: Minor calcification of the proximal right ICA without stenosis. Right external carotid artery: No occlusion or stenosis of the origin. Left common carotid artery: Calcification and plaquing at the distal left common carotid bifurcation without hemodynamically significant stenosis. Left internal carotid artery: No stenosis of the extracranial segment. No dissection or occlusion. Left external carotid artery: No occlusion or stenosis of the origin. Right vertebral artery: Right vertebral artery is dominant. Left vertebral artery: No stenosis. No dissection or occlusion. Aorta: Aortic calcification. Soft tissues: Normal. No significant soft tissue swelling. Bones/joints: No acute fracture. IMPRESSION: No hemodynamically significant stenosis. REFERENCES: NASCET CRITERIA. The degree of stenosis in the cervical segment of the internal carotid artery is based on NASCET criteria. Normal is no stenosis. Mild is less than 50% stenosis. Moderate is 50-69% stenosis. Severe is 70% to 99% stenosis. Total occlusion is no detectable patent lumen.
--- NOTE | 2023-11-14 16:44 | ECG_ITS ---
APPROVED REPORT Exam: Resting ECG HR:75 bpm ECG Measurements Heart Rate 75 AXES ND 161 P 62 QRSd 111 QRS -51 QT 394 T 90 QTc 423 Conclusion SINUS RHYTHM PATTERN CONSISTENT WITH PULMONARY DISEASE INCOMPLETE RIGHT BUNDLE BRANCH BLOCK [90+ ms QRS DURATION, TERMINAL R IN V1/V2, 40+ ms S IN I/aVL/V4/V5/V6] LEFT ANTERIOR FASCICULAR BLOCK [QRS AXIS <= -45, QR IN I, RS IN II] MINIMAL VOLTAGE CRITERIA FOR LVH, CONSIDER NORMAL VARIANT [MEETS CRITERIA IN ONE OF: R(aVL), S(V1), R(V5), R(V5/V6)+S(V1)] NONSPECIFIC T-WAVE ABNORMALITY ABNORMAL ECG Electronically signed by : FRANCISCO MCNEIL, 11/15/2023 00:13:25
--- NOTE | 2023-11-14 16:44 | CT_ITS ---
PROCEDURE INFORMATION: Exam: CT Head Without Contrast Exam date and time: 11/14/2023 5:14 PM Age: 48 years old Clinical indication: Dizziness; Additional info: Possible stroke, intractible dizziness TECHNIQUE: Imaging protocol: Computed tomography of the head without contrast. Radiation optimization: All CT scans at this facility use at least one of these dose optimization techniques: automated exposure control; mA and/or kV adjustment per patient size (includes targeted exams where dose is matched to clinical indication); or iterative reconstruction. COMPARISON: CT ANGIO HEAD 11/14/2023 5:14 PM FINDINGS: Brain: No acute intracranial hemorrhage, midline shift or significant intracranial mass effect. There are chronic lacunar infarcts involving the bilateral basal ganglia. Cerebral ventricles: No hydrocephalus. Paranasal sinuses: Visualized sinuses are unremarkable. No fluid levels. Mastoid air cells: Visualized mastoid air cells are well aerated. Bones: Unremarkable. No acute fracture. Soft tissues: Unremarkable. IMPRESSION: No acute intracranial abnormality.
--- NOTE | 2023-11-14 16:44 | CT_ITS ---
PROCEDURE INFORMATION: Exam: CTA Head With Contrast, Arteriography Exam date and time: 11/14/2023 5:14 PM Age: 48 years old Clinical indication: Stroke-like symptoms; Dizziness/giddiness; Additional info: Possible stroke, intractible dizziness TECHNIQUE: Imaging protocol: Computed tomographic angiography of the head with contrast. Exam focused on the arteries. 3D rendering (Not supervised by radiologist): MIP and/or 3D reconstructed images were created by the technologist. Radiation optimization: All CT scans at this facility use at least one of these dose optimization techniques: automated exposure control; mA and/or kV adjustment per patient size (includes targeted exams where dose is matched to clinical indication); or iterative reconstruction. Contrast material: ISO 370; Contrast volume: 90 ml; Contrast route: INTRAVENOUS (IV); COMPARISON: CT HEAD/BRAIN WO CON 11/14/2023 5:14 PM FINDINGS: ANTERIOR CIRCULATION: Right internal carotid artery: Calcification involving the right carotid siphon without hemodynamically significant stenosis. Right middle cerebral artery: No occlusion or significant stenosis. No aneurysm. Right anterior cerebral artery: No occlusion or significant stenosis. No aneurysm. Left internal carotid artery: Intracranial segment is patent with no significant stenosis. No aneurysm. Left middle cerebral artery: No occlusion or significant stenosis. No aneurysm. Left anterior cerebral artery: No occlusion or significant stenosis. No aneurysm. POSTERIOR CIRCULATION: Right vertebral artery: Right vertebral artery is dominant. Left vertebral artery: No occlusion or significant stenosis. No aneurysm. Basilar artery: No occlusion or significant stenosis. No aneurysm. Right posterior cerebral artery: No occlusion or significant stenosis. No aneurysm. Left posterior cerebral artery: No occlusion or significant stenosis. No aneurysm. IMPRESSION: No hemodynamically significant stenosis or large vessel occlusion.
[2023-11-14 16:55] LABS: Basophils # 0.1 K/mm3 (0-0.2); Basophils % 0.8 % (0.1-2.0); Eosinophils # 0.3 K/mm3 (0.0-0.4); Eosinophils % 2.9 % (0.1-12.0); Hematocrit 37.7 % (37.0-47.0); Hemoglobin 12.6 g/dL (12.2-16.2); Lymphocytes % 23.5 % (10-50); Mean Corpuscular HGB Conc 33.3 g/dL (31.8-35.4); Mean Corpuscular Hemoglobin 31.7 pg (27.0-31.2); Mean Corpuscular Volume 95.1 fl (81-99); Mean Platelet Volume 10.6 fl (7.4-10.4); Monocytes # 0.4 K/mm3 (0.1-1.0); Monocytes % 4.7 % (1.7-9.3); Neutrophils # 5.9 K/mm3 (1.8-7.8); Neutrophils % 68.2 % (37.0-80.0); Platelet Count 197 K/mm3 (142-424); Red Blood Count 3.96 M/mm3 (4.20-5.40); Red Cell Distribution Width 13.8 % (11.5-17.5); White Blood Count 8.7 K/mm3 (4.8-10.8)
[2023-11-14 17:01] LABS: Chloride 107 mmol/L (98-107); Potassium 4.1 mmoL/L (3.5-5.1); Sodium 143 mmol/L (136-145)
[2023-11-14 17:02] LABS: Activated Partial Thrombo Time 27.2 seconds (22.8-30.6); INR 0.91 (0.9-1.1); Prothrombin Time 10.3 seconds (10.1-12.5)
[2023-11-14 17:04] LABS: Alanine Aminotransferase 17 U/L (12-78); Albumin Level 4.4 g/dl (3.5-5.0); Albumin/Globulin Ratio 1.1 (1.1-1.8); Alkaline Phosphatase 96 U/L (38-126); Anion Gap 14.1 mEq/L (5-15); Aspartate Amino Transferase 26 U/L (14-36); Bilirubin,Total 0.4 mg/dl (0.2-1.3); Blood Urea Nitrogen 68 mg/dl (7-17); Calcium 9.4 mg/dl (8.4-10.2); Carbon Dioxide 26 mmol/L (22.0-30.0); Cholesterol 253 mg/dl (140-200); Creatinine Clearance Estimated 21 mL/min (50-200); Estimated Glomerular Filt Rate 12 ml/min (>60); GFR (African American) 15 ML/MIN (>60); Globulin 3.9 g/dL (1.3-3.2); Glucose 108 mg/dl (74-100); Total Protein,Serum 8.3 g/dl (6.3-8.2); Triglycerides 247 mg/dl (30-150); VLDL Cholesterol 49 mg/dL (0-40)
[2023-11-14 17:05] LABS: Chol/HDL Ratio 5.9 (1-3.5); HDL Cholesterol 43 mg/dl (40-60)
--- NOTE | 2023-11-14 17:05 | HMH.EDGENADL ---
Discharge Plan Disposition Patient Disposition: Xfer Short-Term Hosp Chief Complaint: Dizziness Prescriptions Prescriptions: No Action (DME) OneTouch Verio test strips Strip See Rx Instructions .ROUTE .MEDSUPPLY Qty: 10 Rx Instructions: As directed fluticasone propionate [Flonase Allergy Relief] 50 mcg/actuation spray,suspension 1 spray intranasal DAILY Qty: 16 2RF Rx Instructions: administer into each nostril loratadine [Claritin] 10 mg tablet 10 mg PO DAILY Qty: 30 3RF urea 40 % cream 1 applic topical BID 30 Days Qty: 28 3RF diclofenac sodium 1 % gel 4 g topical QID PRN (Reason: pain ) 30 Days Qty: 100 2RF Rx Instructions: apply to single, ankle, foot; for foot includes sole/toes/top of foot Kerasal Fungal Nail Renewal Solution 1 ml topical BID 28 Days Qty: 10 3RF (DME) pen needle, diabetic [BD Ultra-Fine Mini Pen Needle] 31 gauge x 3/16 needle See Rx Instructions .ROUTE .MEDSUPPLY Qty: 50 Rx Instructions: As directed chlorhexidine gluconate 0.12 % mouthwash 1 applic PO BID losartan 25 mg tablet 25 mg PO carvedilol [Coreg] 3.125 mg tablet 3.125 mg PO BID Qty: 60 3RF Rx Instructions: must administer with a meal/food famotidine 20 mg tablet See Rx Instructions .ROUTE .COMPLEX Qty: 90 1RF Dose Instruction: TAKE ONE TABLET BY MOUTH ONCE A DAY Rx Instructions: TAKE ONE TABLET BY MOUTH ONCE A DAY lamotrigine 100 mg tablet 150 mg PO BID Qty: 60 2RF quetiapine [Seroquel] 200 mg tablet 200 mg PO HS Qty: 30 2RF Ozempic 1 mg/dose (4 mg/3 mL) pen injector 1 mg SQ WEEKLY cyclobenzaprine 10 mg tablet 10 mg PO TID PRN (Reason: muscle spasm) Qty: 60 0RF prednisone 20 mg tablet 20 mg PO BID 5 Days Qty: 10 0RF polyethylene glycol 3350 17 gram/dose powder See Rx Instructions .ROUTE .COMPLEX Qty: 510 1RF Rx Instructions: MIX 17 GRAMS IN 8 OUNCES OF WATER AND DRINK ONCE A DAY (DME) blood-glucose meter,continuous 1 EACH misc See Rx Instructions MISCELLANE .MEDSUPPLY Rx Instructions: As directed calcium carbonate 500 MG tablet 500 mg PO DAILY cholecalciferol (vitamin D3) 50 mcg (2,000 unit) capsule See Rx Instructions .ROUTE .COMPLEX Rx Instructions: TAKE ONE CAPSULE BY MOUTH ONCE A DAY Referrals Follow up/Referrals: Dyllan Gil APRN [Primary Care Provider] - See instructions Clinical Impressions Clinical Impression: Vertigo, Abnormal gait Discharge ED Provider: Davin Mak General Adult HPI General Chief complaint: Dizziness Stated complaint: Dizziness,lightheaded Time Seen by Provider: 11/14/23 16:38 Mode of Arrival: Ambulatory Source of Information: Patient Limitations: No Limitations Description of Symptoms (Recalled from ER Triage Doc. by RN): pt states she woke up around 0900 and was instantly dizzy and light headed. pt reports it is not dependent on position and nothing improves it. pt denies pain or any other symptoms. History of Present Illness HPI narrative: Patient is a 48-year-old female with past medical history of CKD, status post gastric sleeve with significant weight loss, vitamin B-12 deficiency who presents emergency department for evaluation of dizziness. Patient states that she awoke this morning without symptoms however at approximately 10 AM had intractable dizziness while walking. Symptoms have persisted at rest. No trauma. The room does not spin left or right in particular however she just feels lightheaded and has difficulty ambulating. She has not fallen. No chest pain, no abdominal pain. No other acute complaints at this time. Related Data Home Medications Medication Instructions Recorded Confirmed blood sugar diagnostic (OneTouch #10 ea 01/22/21 11/03/23 Verio test strips) pen needle, diabetic 31 gauge x #50 ea 04/09/21 11/03/2307/10 (BD Ultra-Fine Mini Pen Needle) blood-glucose meter,continuous 07/15/21 11/03/23 calcium carbonate 500 mg PO DAILY Supplement 07/15/21 11/03/23 cholecalciferol (vitamin D3) 50 See Rx Instructions .Route 01/02/22 11/03/23 mcg (2,000 unit) capsule .COMPLEX Supplement chlorhexidine gluconate 0.12 % 1 applic PO BID periodontal disease 06/17/23 11/03/23 mouthwash losartan 25 mg tablet 25 mg PO 08/05/23 11/03/23 semaglutide 1 mg/dose (4 mg/3 mL) 1 mg SQ WEEKLY 11/03/23 11/03/23 subcutaneous pen injector (Ozempic) Previous Rx's Medication Instructions Recorded fluticasone propionate 50 1 spray intranasal DAILY #16 grams 03/05/23 mcg/actuation nasal spray,suspension (Flonase Allergy Relief) loratadine 10 mg tablet (Claritin) 10 mg PO DAILY #30 tabs 03/05/23 carvedilol 3.125 mg tablet (Coreg) 3.125 mg PO BID #60 tabs 08/25/23 famotidine 20 mg tablet See Rx Instructions .Route 08/25/23 .COMPLEX #90 tabs diclofenac sodium 1 % topical gel 4 g topical QID PRN pain 30 days 09/24/23 #100 grams urea 40 % topical cream 1 applic topical BID 30 days #28 09/24/23 grams urea-lactic acid-propylene glycol 1 ml topical BID Fungal Nails 4 09/25/23 topical solution (Kerasal Fungal weeks #10 mL Nail Renewal topical solution) polyethylene glycol 3350 17 See Rx Instructions .Route 10/23/23 gram/dose oral powder .COMPLEX BOWELS #510 grams cyclobenzaprine 10 mg tablet 10 mg PO TID PRN muscle spasm #60 11/03/23 tabs lamotrigine 100 mg tablet 150 mg (1.5 x 100 mg) PO BID MOOD 11/03/23 #60 tabs prednisone 20 mg tablet 20 mg PO BID 5 days #10 tabs 11/03/23 quetiapine 200 mg tablet (Seroquel) 200 mg PO HS Anxiety #30 tabs 11/03/23 Allergies Allergy/AdvReac Type Severity Reaction Status Date / Time fish oil [FISH OIL] Allergy Mild Verified 11/14/23 16:45 infant formula, sp.metab. Allergy Mild Rash Verified 11/14/23 16:45 with iron,methionine-fr [From [facility] 1 Powder] infant formula, special Allergy Mild Rash Verified 11/14/23 16:45 metabolic with iron [From [facility] 1 Powder] prednisolone Allergy Mild Other Verified 11/14/23 16:45 [facility] Disclaimer: The information contained in this section may have been updated after the patient was seen, as this information can be updated by other users. Medical History Chronic kidney disease History of back pain History of cataract Edema Encounter for pre-operative cardiovascular clearance Renal disease Hydradenitis Bilateral carpal tunnel syndrome Bipolar II disorder Patient is following with Rosnia Rosario and her team. She is prescribing the theatric medications. GERD (gastroesophageal reflux disease) Patient is on omeprasole and I have encouraged her to continue. Lymphedema Patient has followed with [facility] lymphedema clinic. they are following with her at home currently. CAD (coronary artery disease) COPD (chronic obstructive pulmonary disease) Patient is quit smoking and her COPD is stable will follow for now Dyspnea Tobacco abuse HTN (hypertension) Diastolic dysfunction Subungual hematoma of great toe of left foot Candidiasis, intertrigo Subungual hematoma of fifth toe of left foot Back Pain Osteoarthritis Leg swelling Memory Loss Neck pain Vitamin D deficiency (~06/29/17) Hyperlipidemia (~06/29/17) Diabetes mellitus Type 2 diabetes mellitus Patient is following with endocrinology at [facility]. Recent A1c was 6.9-02/02/23 Surgical History History of ankle surgery RIGHT ANKLE SX - SCREWS History of incision and drainage History of bilateral carpal tunnel release History of section Family History Mother Diabetes Father Diabetes Lymphoma Social History Smoking Status: Never smoker smoking status stop date: 1 year ago quit status: considering quitting second hand exposure: No alcohol intake: never substance use type: denies use current occupational status: disabled Travel in the last 8 weeks: None adopted: No caregiver/support person: No foster care: No household members: spouse housing: apartment lives independently: Yes marital status: number of children: 1 number of grandchildren: 0 education level: high school service: No intermediate: No current occupational exposures/hazards: No Hx Recent Travel: No sexually active: No caffeine: Yes physical activity: none phil/amish: Mandaen special phil needs: No working smoke detector in home: Yes fire extinguisher in home: No carbon monox detector in home: No firearms in home: No do you feel safe at home: Yes ROS Obtained: Yes Systems reviewed as appropriate & no additional complaints except as documented Physical Exam General General appearance: alert and in no apparent distress Head Head exam: atraumatic and normocephalic Eye Eye exam: Present PERRL ENT ENT exam: Present mucous membranes moist and TM's normal bilaterally Neck Neck exam: Present normal inspection Chest Chest inspection: Present normal inspection and symmetric chest wall rise Respiratory Respiratory exam: Present normal lung sounds bilaterally; Absent respiratory distress Cardiovascular Cardiovascular exam: Present regular rate and normal rhythm Abdominal Exam Abdominal exam: Present soft; Absent tenderness Extremities Exam Extremities exam: Present normal inspection Neurological Exam Neurological exam: Present alert, oriented X3 and CN II-XII intact; Absent motor sensory deficit Psychiatric Psychiatric exam: Present normal affect Skin Skin exam: Present warm and dry Medical Decision Making Tyshawn Inquiry Pt receiving controlled substance: No Vital Signs: 11/14/23 16:34 11/14/23 16:38 11/14/23 17:01 Temperature 97.8 F Temperature Source Oral Pulse Rate 82 83 Pulse Rate [Left] 82 Respiratory Rate 18 Blood Pressure 134/80 126/92 H Blood Pressure [Right Arm] 134/80 Blood Pressure Mean [Right Arm] 98 Blood Pressure Source [Right Arm] Automatic Cuff Blood Pressure Position [Right Arm] Sitting 02 Sat by Pulse Oximetry 100 100 100 Oxygen Delivery Method Room Air Room Air 11/14/23 17:31 Temperature Temperature Source Pulse Rate 84 Pulse Rate [Left] Respiratory Rate Blood Pressure 150/108 H Blood Pressure [Right Arm] Blood Pressure Mean [Right Arm] Blood Pressure Source [Right Arm] Blood Pressure Position [Right Arm] 02 Sat by Pulse Oximetry 100 Oxygen Delivery Method Room Air Lab Data Lab Results 11/14/23 16:35: WBC 8.7, RBC 3.96 L, Hgb 12.6, Hct 37.7, MCV 95.1, MCH 31.7 H, MCHC 33.3, RDW 13.8, Plt Count 197, MPV 10.6 H, Neut % (Auto) 68.2, Lymph % (Auto) 23.5, Overton % (Auto) 4.7, Eos % (Auto) 2.9, Baso % (Auto) 0.8, Neut # (Auto) 5.9, Lymph # (Auto) 2.0, Overton # (Auto) 0.4, Eos # (Auto) 0.3, Baso # (Auto) 0.1, PT 10.3, INR 0.91, APTT 27.2, Sodium 143, Potassium 4.1, Chloride 107, Carbon Dioxide 26, Anion Gap 14.1, BUN 68 H, Creatinine 3.90 H, Estimated Creat Clear 21, Estimated GFR 12 L*, Est GFR ( Amer) 15 L*, Glucose 108 H, Calcium 9.4, Total Bilirubin 0.4, AST 26, ALT 17, Alkaline Phosphatase 96, Troponin I < 0.01, Total Protein 8.3 H, Albumin 4.4, Globulin 3.9 H, Albumin/Globulin Ratio 1.1, Triglycerides 247 H, Cholesterol 253 H, LDL Cholesterol Direct 139.75 H, VLDL Cholesterol 49 H, HDL Cholesterol 43, Cholesterol/HDL Ratio 5.9 H, Plasma/Serum Alcohol < 10 11/14/23 17:29: Urine Opiates Screen Negative, Urine Methadone Screen Negative, Ur Barbituates Screen Negative, Ur Phencyclidine Scrn Negative, Ur Amphetamines Screen Negative, U Benzodiazepines Scrn Negative, Urine Cocaine Screen Negative, U Marijuana (THC) Screen Negative 11/14/23 16:35 11/14/23 16:35 Orders (Tests/Meds): ED MEDICATIONS Generic Name Dose Route Start Last Admin Trade Name Freq PRN Reason Stop Dose Admin Lactated Ringer's 500 mls @ 999 mls/hr 11/14/23 17:41 11/14/23 17:46 Lactated Ringer's 500ml IV 11/14/23 18:11 999 mls/hr .Q31M ONE Administration Sodium Chloride 10 ml 11/14/23 16:44 Sodium Chloride 0.9% 10ml Flush Syringe IV 12/14/23 16:43 NEEDED PRN Maintain IV Site Discontinued Medications Generic Name Dose Route Start Last Admin Trade Name Freq PRN Reason Stop Dose Admin Iopamidol 90 ml 11/14/23 17:25 11/14/23 17:26 Iopamidol-370 (76%);100ml Bottle IV 11/14/23 17:26 90 ml ONCE ONE Administration Sodium Chloride 10 ml 11/14/23 17:25 11/14/23 17:26 Sodium Chloride 0.9% 10ml Syr (Rad Only) IV 11/14/23 17:26 10 ml ONCE ONE Administration Sodium Chloride 50 ml 11/14/23 17:25 11/14/23 17:26 0.9 % Sodium Chloride 50 Ml Vial IV 11/14/23 17:26 50 ml ONCE ONE Administration ORDERS Category Date Time Status CT angio head Stat Cat Scan 11/14/23 16:[address] angio neck Stat Cat Scan 11/14/23 16:[address] head/brain wo con Stat Cat Scan 11/14/23 16:44 Completed Activated Partial Thrombo Time Stat Lab 11/14/23 16:35 Completed Complete Blood Count Auto Diff Stat Lab 11/14/23 16:35 Completed Comprehensive Metabolic Panel Stat Lab 11/14/23 16:35 Completed Drug Screen,Urine Stat Lab 11/14/23 17:29 Completed Ethyl Alcohol Stat Lab 11/14/23 16:35 Completed Lipid Panel Stat Lab 11/14/23 16:35 Completed Prothrombin Time INR Stat Lab 11/14/23 16:35 Completed Troponin I Q3H Lab 11/14/23 19:45 Ordered Troponin I Q3H Lab 11/14/23 22:45 Ordered Troponin I Stat Lab 11/14/23 16:35 Completed Urinalysis and Microscopic Stat Lab 11/14/23 17:29 Received ECG Request Stat Y 11/14/23 16:44 Ordered ECG Data Tracing #1: Independently interpreted by me rate 75, rhythm is regular, axis is leftward deviated, no ST elevation in anatomical contiguous leads, QTc 423. Medical Decision Narrative: In summary patient is a 48-year-old female past medical history described above presents emergency department for evaluation of intractable dizziness. Patient is hemodynamically stable nontoxic-appearing upon arrival, afebrile. Differential diagnosis includes electrolyte abnormality, posterior circulation stroke, vestibular neuritis, among others. Workup will be conducted with hematologic labs, noncontrasted CT scan of the head, CTA of the head and neck. Patient is outside the stroke window for thrombolytics given her last known normal of 10 AM. Besides intractable dizziness to suggest posterior circulation problems with respect to possibility of stroke she has a nonfocal neurologic exam otherwise. Initial workup reviewed by me, hematologic labs are nonactionable, patient has CKD but does not have any critical electrolyte abnormalities and is troponin undetectably low. Informal visualization of noncontrasted CT scan by me no large intra-axial hemorrhage with shift. Noncontrasted CT scan of the head shows no acute intracranial abnormality. CTA of the head and neck no critical stenosis. Upon ambulation patient is veering towards the right. The case was discussed with [facility] stroke navigator and Dr. Sullivan who recommended 324 mg of aspirin and graciously accepted patient for transfer for continued evaluation at this time. Critical Care Critical Care Time Critical Care Time: No
[2023-11-14 17:15] LABS: Direct LDL Cholesterol 139.75 mg/dL (100-129)
[2023-11-14 17:18] LABS: Troponin I < 0.01 ng/ml (0.00-0.034)
--- NOTE | 2023-11-14 17:25 | HMH.ITSTN ---
asked [facility] if pt could recieve fluids due to gfr. she said shed speak with the md
[2023-11-14] MEDS: IOPAMIDOL-370 (76%);100ML BOTTLE 90 ML IV (17:26)
[2023-11-14] MEDS: 0.9 % SODIUM CHLORIDE 50 ML VIAL IV (17:26)
[2023-11-14] MEDS: SODIUM CHLORIDE 0.9% 10ML SYR (RAD ONLY) 10 ML IV (17:26)
[2023-11-14 17:31] LABS: Microscopic, Urine URINE MICROSCOPIC (MICROSCOPIC)
[2023-11-14 17:35] LABS: Appearance,Urine CLEAR (Clear); Bilirubin,Urine Negative (Negative); Blood, Urine Negative (Negative); Color,Urine YELLOW (Yellow); Glucose,Urine (UA) Negative (Negative); Ketones,Urine Negative (Negative); Leukocyte Esterase,Urine Negative (Negative); Nitrate,Urine Negative (Negative); PH,Urine 5.5 (5.0-8.5); Protein,Urine TRACE (Negative); Urobilinogen,Urine 0.2 EU/dl (0.2)
--- NOTE | 2023-11-14 17:45 | PC.NURSE ---
aiyana calling to speak with irene gomez at this time about pt
[2023-11-14 17:46] LABS: Barbiturates Screen,Urine Negative ng/ml (<200)
[2023-11-14] MEDS: RINGERS SOLUTION,LACTATED 500 ML 999 ML IV (17:46)
[2023-11-14 17:47] LABS: Amphetamine/Metha Screen,Urine Negative ng/ml (<1000); Benzodiazepines Screen,Urine Negative ng/ml (<200)
[2023-11-14 17:48] LABS: Cannabinoid Screen,Urine Negative ng/ml (<50)
[2023-11-14 17:49] LABS: Cocaine Screen,Urine Negative ng/ml (<300); Methadone Screen,Urine Negative ng/ml (<300)
[2023-11-14 17:50] LABS: Opiate Screen,Urine Negative ng/ml (<300)
[2023-11-14 17:51] LABS: Phencyclidine Screen,Urine Negative ng/ml (<25)
[2023-11-14 17:53] LABS: Ethyl Alcohol < 10 mg/dl (0-10)
--- NOTE | 2023-11-14 17:55 | PC.NURSE ---
called [facility] for transfer per er md
--- NOTE | 2023-11-14 17:55 | PC.NURSE ---
walked pt who walked more to the right while doing so. aware
--- NOTE | 2023-11-14 18:03 | PC.NURSE ---
is speaking with hospitalist from [facility]
[2023-11-14] MEDS: ASPIRIN 81MG CHEWABLE TABLET 324 MG PO (18:21)
== END 2023-11-14 19:35 | disposition short-term general hospital (02) ==
PROVIDERS: Emergency Provider Emergency Medicine; PCP Nurse Practitioner Family
DX: R42 Dizziness and giddiness (principal); R26.9 Unspecified abnormalities of gait and mobility; N18.9 Chronic kidney disease, unspecified; J44.9 Chronic obstructive pulmonary disease, unspecified; K21.9 Gastro-esophageal reflux disease without esophagitis; E11.22 Type 2 diabetes mellitus with diabetic chronic kidney disease; E78.5 Hyperlipidemia, unspecified; I11.9 Hypertensive heart disease without heart failure; I25.10 Atherosclerotic heart disease of native coronary artery without angina pectoris; Z87.891 Personal history of nicotine dependence; Z79.85 Long-term (current) use of injectable non-insulin antidiabetic drugs; Z98.84 Bariatric surgery status
CPT/HCPCS: 70450; 70496; 70498; 80053; 80061; 80307; 80320; 81001; 84484; 85025; 85610; 85730; 93005; 99285; G0480; J7120; Q9967

== ENCOUNTER 2023-11-18 14:02 | Outpatient (CLI) | payer MEDICAID, SELFPAY ==
[2023-11-18 14:10] LABS: Microscopic, Urine URINE MICROSCOPIC (MICROSCOPIC)
[2023-11-18 14:41] LABS: Hematocrit 34.7 % (37.0-47.0); Hemoglobin 11.5 g/dL (12.2-16.2); Mean Corpuscular HGB Conc 33.1 g/dL (31.8-35.4); Mean Corpuscular Hemoglobin 31.8 pg (27.0-31.2); Mean Corpuscular Volume 96.1 fl (81-99); Platelet Count 188 K/mm3 (142-424); Red Blood Count 3.61 M/mm3 (4.20-5.40); Red Cell Distribution Width 13.8 % (11.5-17.5); White Blood Count 9.4 K/mm3 (4.8-10.8)
[2023-11-18 14:54] LABS: Anion Gap 14.4 mEq/L (5-15); Blood Urea Nitrogen 62 mg/dl (7-17); Calcium 9.6 mg/dl (8.4-10.2); Carbon Dioxide 23 mmol/L (22.0-30.0); Chloride 110 mmol/L (98-107); Estimated Glomerular Filt Rate 14 ml/min (>60); GFR (African American) 17 ML/MIN (>60); Glucose 90 mg/dl (74-100); Phosphorous 4.6 mg/dl (2.5-4.5); Potassium 4.4 mmoL/L (3.5-5.1); Sodium 143 mmol/L (136-145)
[2023-11-18 14:56] LABS: Appearance,Urine CLEAR (Clear); Bilirubin,Urine Negative (Negative); Blood, Urine Negative (Negative); Color,Urine YELLOW (Yellow); Glucose,Urine (UA) Negative (Negative); Ketones,Urine Negative (Negative); Leukocyte Esterase,Urine Negative (Negative); Nitrate,Urine Negative (Negative); PH,Urine 5.5 (5.0-8.5); Protein,Urine TRACE (Negative); Urobilinogen,Urine 0.2 EU/dl (0.2)
[2023-11-18 15:10] LABS: Creatinine,Urine Random 82 mg/dL (Not Estab.)
== END 2023-11-18 23:59 | disposition home or self-care (01) ==
LOC: LAB 14:03
PROVIDERS: PCP Nurse Practitioner Family; Visit Provider Internal Medicine Nephrology
DX: N18.4 Chronic kidney disease, stage 4 (severe) (principal)
CPT/HCPCS: 36415; 80069; 81001; 82570; 84156; 85014; 85018; 85048; 85049

== ENCOUNTER 2023-11-27 09:28 | Outpatient (POV) | payer MEDICAID, SELFPAY | END 2023-11-27 23:59 | disposition home or self-care (01) | LOC: SC 09:29 | PROVIDERS: Visit Provider Internal Medicine Nephrology | DX: Z00.00 Encounter for general adult medical examination without abnormal findings (principal) ==

== ENCOUNTER 2023-12-04 12:14 | Outpatient (CLI) | payer MEDICAID, SELFPAY | END 2023-12-04 23:59 | disposition home or self-care (01) | LOC: LAB 12:15 | PROVIDERS: PCP Nurse Practitioner Family; Visit Provider Transplant Surgery | DX: N18.6 End stage renal disease (principal); Z76.82 Awaiting organ transplant status | CPT/HCPCS: 36415 ==

== ENCOUNTER 2023-12-15 19:15 | Outpatient (CLI) | payer MEDICAID, SELFPAY ==
[2023-12-15 20:17] LABS: Chol/HDL Ratio 3.5 (1-3.5); Cholesterol 150 mg/dl (140-200); HDL Cholesterol 43 mg/dl (40-60); Triglycerides 142 mg/dl (30-150); VLDL Cholesterol 28 mg/dL (0-40)
[2023-12-15 20:29] LABS: Direct LDL Cholesterol 73.63 mg/dL (100-129)
[2023-12-15 21:38] LABS: Vitamin B12 > 1000 pg/mL (239-931)
[2023-12-16 04:56] LABS: Iron 83 ug/dL (37-170)
[2023-12-16 05:02] LABS: Total Iron Binding Capacity 246 ug/dL (265-497)
== END 2023-12-15 23:59 | disposition home or self-care (01) ==
LOC: LAB.DROPOF 19:17
PROVIDERS: PCP Internal Medicine; Visit Provider Internal Medicine
DX: E78.5 Hyperlipidemia, unspecified (principal); E11.65 Type 2 diabetes mellitus with hyperglycemia; Z79.85 Long-term (current) use of injectable non-insulin antidiabetic drugs
CPT/HCPCS: 80061; 82607; 83036; 83540; 83550

== ENCOUNTER 2023-12-22 14:00 | Outpatient (RCR) | payer MEDICAID, SELFPAY ==
--- NOTE | 2023-12-02 08:57 | HMH.PTOPWND ---
Rehab Outpt Wound Evaluation Rehab OP Wound Evaluation Start: 12/02/23 08:40 Freq: Status: Active Protocol: Document 12/02/23 08:40 BARBIE (Rec: 12/02/23 08:57 PHOLETICIA [id number]) E-signed By Edi Schulte, PT Subjective/History History History This is the initial PT eval for Melanie Healy, 48 yowf who presents with c/o continued chronic B LE lymphedema, L worse than R. She reports no c /o pain or tenderness at this time, but her legs do swell more in the evening after being up all day. She has a home lymphedema pump, but needs new sleeves due to significant weight loss after gastric bypass surgery. She also has PMH of HTN, DM, CKD. Subjective Subjective Pt has no c/o pain at this time, 0/10. TTP 0/4 B LE at this time. Currently minimal erythema noted to B lower legs and no pitting edema at this time. New diagnosis of cancer in past 12 No months? Lymphedema Eval Classification of Lymphedema Secondary Lymphedema Yes Stemmer's sign Stemmer's Sign no Stage of Lymphedema Lymphedema stages Stage 0 (subjective c/o heaviness and aching) Skin Changes Dry Skin Yes Redness Yes Other Changes Yes Pain Scale Pain Scale (0-10) 0 Affected Extremities Areas Affected by Lymphedema/Edema Right Lower Extremity,Left Lower Extremity Lower Extremity Measurements Right MTP Measurement (cm) 19.8 Heel Measurement (cm) 29.8 10 cm Proximal to Lateral Malleoli 24.5 Measurement (cm) 20 cm Proximal to Lateral Malleoli 34.1 Measurement (cm) 30 cm Proximal to Lateral Malleoli 36.1 Measurement (cm) 40 cm Proximal to Lateral Malleoli 0 Measurement (cm) 50 cm Proximal to Lateral Malleoli 0 Measurement (cm) 60 cm Proximal to Lateral Malleoli 0 Measurement (cm) Lower Extremity Measurement Total (cm) 144.3 Left MTP Measurement (cm) 19.6 Heel Measurement (cm) 30.0 10 cm Proximal to Lateral Malleoli 24.6 Measurement (cm) 20 cm Proximal to Lateral Malleoli 34.0 Measurement (cm) 30 cm Proximal to Lateral Malleoli 35.6 Measurement (cm) 40 cm Proximal to Lateral Malleoli 0 Measurement (cm) 50 cm Proximal to Lateral Malleoli 0 Measurement (cm) 60 cm Proximal to Lateral Malleoli 0 Measurement (cm) Lower Extremity Measurement Total (cm) 143.8 Manual Lymphatic Drainage Treatment Area MLD Treatment Area Right Lower Extremity,Left Lower Extremity Wound Problems/Impairments Impairments Problems/Impairmments Lymphedema Present,Impaired Self Care/Self Management Prognosis Rehab Potential Good Comment Skilled therapy is indicated to maintain reduction of B LE lymphedema and return to PLOF. Clinical Impression Consistent with Diagnosis Yes Short Term Goals Number of Weeks 2 Decrease Edema Yes Patient to Understand Lymphedema Yes Treatment and Exercises Decrease Girth Measurments by (cm) Yes: B LE total by 3 cm. Dispersion Mixer Goals Number of Weeks 4 Decrease Lymphedema Yes: no fibrotic edema B LE Patient to be Ind w/ HEP Yes Patient to Adhere Lymphedema Precautions Yes Decrease Girth Measurments by (cm) Yes: B LE total by 5 cm ea. Outpatient Therapy Plan of Care Treatment Plan May Include Therapeutic Exercise Including Home Yes Exercise Program Manual Therapy Techniques Yes Neuromuscular Re-education Yes Therapeutic Activities to Return to Yes Previous Functional/Work Level ADL/Self Care Education Yes Orthotics/Bracing/Splinting Yes Manual Lymphatic Drainage Yes Eval/Re-Eval Yes Frequency Times per week 1-2 Duration Number of Weeks 4 Addendums This patient is a candidate for social No or vocational rehab? Patient/Guardian verbally acknowledges Yes understanding of treatment program and consents to further treatment? Patient/Guardian verbally acknowledges Yes understanding of diagnosis, prognosis and goals for treatment? Eval Complexity PT Charges 69656 - High Complexity PHYSICIAN CERTIFICATION: I certify the specified therapy services for Melanie Healy are required, authorized, and reviewed every 30 days.
== END 2023-12-22 14:05 | disposition home or self-care (01) ==
LOC: PT 14:00
PROVIDERS: Visit Provider Nurse Practitioner Family
DX: I89.0 Lymphedema, not elsewhere classified (principal)
CPT/HCPCS: 97140; 97163

== ENCOUNTER 2023-12-25 10:43 | Outpatient (CLI) | payer MEDICAID, SELFPAY ==
[2023-12-25 11:26] LABS: Basophils # 0.1 K/mm3 (0-0.2); Eosinophils # 0.2 K/mm3 (0.0-0.4); Eosinophils % 3.5 % (0.1-12.0); Hematocrit 34.2 % (37.0-47.0); Hemoglobin 10.9 g/dL (12.2-16.2); Lymphocytes # 1.5 K/mm3 (0.7-4.5); Lymphocytes % 26.2 % (10-50); Mean Corpuscular HGB Conc 31.8 g/dL (31.8-35.4); Mean Corpuscular Hemoglobin 30.8 pg (27.0-31.2); Mean Corpuscular Volume 96.9 fl (81-99); Mean Platelet Volume 10.9 fl (7.4-10.4); Monocytes # 0.3 K/mm3 (0.1-1.0); Monocytes % 4.3 % (1.7-9.3); Neutrophils # 3.8 K/mm3 (1.8-7.8); Platelet Count 172 K/mm3 (142-424); Red Blood Count 3.53 M/mm3 (4.20-5.40); White Blood Count 5.8 K/mm3 (4.8-10.8)
[2023-12-25 12:18] LABS: Albumin Level 3.9 g/dl (3.5-5.0); Chloride 112 mmol/L (98-107); Potassium 4.7 mmoL/L (3.5-5.1); Sodium 141 mmol/L (136-145)
[2023-12-25 12:21] LABS: Alanine Aminotransferase 18 U/L (12-78); Albumin/Globulin Ratio 1.4 (1.1-1.8); Alkaline Phosphatase 99 U/L (38-126); Anion Gap 9.7 mEq/L (5-15); Aspartate Amino Transferase 23 U/L (14-36); Bilirubin,Total 0.5 mg/dl (0.2-1.3); Blood Urea Nitrogen 40 mg/dl (7-17); Carbon Dioxide 24 mmol/L (22.0-30.0); Cholesterol 146 mg/dl (140-200); Estimated Glomerular Filt Rate 21 ml/min (>60); GFR (African American) 26 ML/MIN (>60); Globulin 2.7 g/dL (1.3-3.2); Total Protein,Serum 6.6 g/dl (6.3-8.2); Triglycerides 120 mg/dl (30-150); VLDL Cholesterol 24 mg/dL (0-40)
[2023-12-25 12:22] LABS: Calcium 8.8 mg/dl (8.4-10.2); Chol/HDL Ratio 3.5 (1-3.5); Glucose 96 mg/dl (74-100); HDL Cholesterol 42 mg/dl (40-60)
[2023-12-25 12:33] LABS: Direct LDL Cholesterol 67.65 mg/dL (100-129)
[2023-12-25 12:41] LABS: 25-OH Vitamin D, Total 61.6 ng/mL (30-100)
[2023-12-25 12:57] LABS: Ferritin 89.8 ng/ml (6.24-137)
[2023-12-25 19:18] LABS: Folate > 20.00 ng/mL
[2023-12-25 19:19] LABS: Iron 68 ug/dL (37-170); Total Iron Binding Capacity 241 ug/dL (265-497)
[2023-12-26 10:41] LABS: Prealbumin 23 mg/dL (12-34)
[2023-12-29 14:11] LABS: Methylmalonic Acid 232 nmol/L (0-378)
[2023-12-30 15:18] LABS: Vitamin B1 122.6 nmol/L (66.5-200.0)
[2024-01-04 06:08] LABS: Vitamin A 35.8 ug/dL (20.1-62.0); Vitamin E Alpha Tocopherol 8.9 mg/L (7.0-25.1); Vitamin E Gamma Tocopherol 1.6 mg/L (0.5-5.5)
== END 2023-12-25 23:59 | disposition home or self-care (01) ==
LOC: LAB 10:44
PROVIDERS: PCP Nurse Practitioner Family; Visit Provider Physician Assistant
DX: I12.0 Hypertensive chronic kidney disease with stage 5 chronic kidney disease or end stage renal disease (principal); N18.4 Chronic kidney disease, stage 4 (severe); Z68.27 Body mass index [BMI] 27.0-27.9, adult; E66.3 Overweight
CPT/HCPCS: 36415; 80053; 80061; 82306; 82728; 82746; 83036; 83540; 83550; 83921; 84134; 84425; 84446; 84590; 85025

== ENCOUNTER 2024-02-02 14:18 | Outpatient (CLI) | payer MEDICAID, SELFPAY ==
[2024-02-02 14:49] LABS: Hematocrit 32.8 % (37.0-47.0); Mean Corpuscular HGB Conc 33.7 g/dL (31.8-35.4); Mean Corpuscular Hemoglobin 31.5 pg (27.0-31.2); Mean Corpuscular Volume 93.5 fl (81-99); Platelet Count 171 K/mm3 (142-424); Red Blood Count 3.51 M/mm3 (4.20-5.40); Red Cell Distribution Width 13.5 % (11.5-17.5); White Blood Count 7.5 K/mm3 (4.8-10.8)
[2024-02-02 15:27] LABS: Chloride 105 mmol/L (98-107); Potassium 4.7 mmoL/L (3.5-5.1); Sodium 139 mmol/L (136-145)
[2024-02-02 15:29] LABS: Appearance,Urine CLEAR (Clear); Bilirubin,Urine Negative (Negative); Blood, Urine NEGATIVE (Negative); Color,Urine YELLOW (Yellow); Glucose,Urine (UA) Negative (Negative); Ketones,Urine Negative (Negative); Leukocyte Esterase,Urine NEGATIVE (Negative); Nitrate,Urine NEGATIVE (Negative); PH,Urine 5.5 (5.0-8.5); Protein,Urine 1+ (Negative); Specific Gravity, Urine 1.025 (1.005-1.030); Urobilinogen,Urine 0.2 EU/dl (0.2)
[2024-02-02 15:30] LABS: Anion Gap 13.7 mEq/L (5-15); Blood Urea Nitrogen 35 mg/dl (7-17); Carbon Dioxide 25 mmol/L (22.0-30.0); Estimated Glomerular Filt Rate 20 ml/min (>60); GFR (African American) 25 ML/MIN (>60); Phosphorous 4.5 mg/dl (2.5-4.5)
[2024-02-02 15:31] LABS: Calcium 9.1 mg/dl (8.4-10.2); Glucose 161 mg/dl (74-100)
[2024-02-02 15:36] LABS: Microscopic, Urine URINE MICROSCOPIC (MICROSCOPIC)
[2024-02-02 15:47] LABS: Creatinine,Urine Random 145 mg/dL (Not Estab.)
[2024-02-02 15:55] LABS: Bacteria,Urine Trace /lpf; RBC,Urine Occasional #/hpf (0-3)
== END 2024-02-02 23:59 | disposition home or self-care (01) ==
LOC: LAB 14:19
PROVIDERS: PCP Nurse Practitioner Family; Visit Provider Internal Medicine Nephrology
DX: N18.4 Chronic kidney disease, stage 4 (severe) (principal)
CPT/HCPCS: 80069; 81015; 82570; 84156; 85027

== ENCOUNTER 2024-03-04 08:24 | Outpatient (CLI) | payer MEDICAID, SELFPAY ==
--- OUTSIDE RECORDS SUMMARY | 2024-08-17 16:00 | XMS_ITS | Encounter Summary ---
Author Organization [facility] Address [address] [place] [address] Care Team Providers Care Pigment Supplier Name Role Phone Lynda Spencer MD Unavailable [phone] Dyllan Gil APRN Primary Care Provider [phone] Reason for Visit * Reason Comments Follow-up Encounter Details Date Type Department Care Team ([facility] Contact Info) Description 08/17/2024 4:00 PM EDT Office Visit [facility] Nephrology, Bone & Mineral Metabolism [address] [facility], [address] [place] [address] Lynda Spencer MD [address] [place] [address] CKD (chronic kidney disease) stage [...] Expiration Date: 02/16/2026 Release to patient in [facility]: Immediate Protein, Random, Urine with Creatinine Standing Status: Future Expected Date: 08/17/2024 Expiration Date: 02/16/2026 [facility] Immediate Urinalysis with reflex microscopic (Culture NOT Included) Standing Status: Future Expected Date: 08/17/2024 Expiration Date: 02/16/2026 [facility]: Immediate CBC W/O Differential Standing Status: Future Expected Date: 08/17/2024 Expiration Date: 02/16/2026 [facility]: Immediate Renal Function Panel, Plasma Standing Status: Future Expected Date: 08/17/2024 Expiration Date: 02/16/2026 [facility]: Immediate Vitamin D 25 Hydroxy Standing Status: Future Expected Date: 08/17/2024 Expiration Date: 02/16/2026 [facility]: Immediate PTH, intact Standing Status: Future Expected Date: 08/17/2024 Expiration Date: 02/16/2026 [facility]: Immediate [1] Note to Patient: The Cure [...] Office Visit [facility] [address] [place] [address] Makayla Bahena APRN [address] [place] [address] 10/26/2024 9:45 AM EDT Office Visit [facility] [address] [place] [address] Munira Keen MD [address] [place] [address] 11/16/2024 1:20 PM EDT Office Visit [facility] Nephrology, Bone & Mineral Metabolism [address], [address] [place] [address] Lynda Spencer MD [address] [place] [address] Scheduled Orders Name Type Priority [...] documented as of this encounter Care Teams Pigment Supplier Relationship Specialty Start Date End Date Dyllan Gil APRN [address] [place] [address] PCP - General 06/11/22 Lynda Spencer MD [address] [address] Referring Physician Nephrology 06/09/22 documented as of this encounter
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
--- OUTSIDE RECORDS SUMMARY | 2024-08-24 13:40 | XMS_ITS | Encounter Summary ---
Author Organization [facility] Address [address] [place] [address] Care Team Providers Care Power System Dispatcher Name Role Phone Lynda Spencer MD Unavailable [phone] Dyllan Gil APRN Primary Care Provider [phone] Encounter Details Date Type Department Care Team (Late st Contact Info) Description 08/24/2024 1:40 PM EDT Ancillary Procedure [facility] [address] [place] [address] Social History Tobacco Use Types Packs/Day Years [...] PM EST documented as of this encounter Plan of Treatment Upcoming Encounters Date Type Department Care Team (Late st Contact Info) Description 10/19/2024 10:40 AM EDT Office Visit [facility] Endocrinology [address] [place] [phone] Makayla Bahena S, UPPER CASER [address] [facility] [address] [place] [address] 10/26/2024 9:45 AM EDT Office Visit [facility] [address] [place] [address] Munira Keen MD [address] [facility] [address] [place] [address] 11/16/2024 1:20 PM EDT Office Visit [facility] Nephrology, Bone & Mineral Metabolism [address] [place] [address] Lynda Spencer MD [address] [place] [address] documented as of this encounter Procedures Procedure Name Priority Date/Time Associated Diagnosis Comments OCT, RETINA - OU - BOTH EYES Routine 08/24/2024 1:53 PM EDT 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 type 2 diabetes mellitus documented in this encounter Results * OCT, Retina - OU - Both [...] ult documented in this encounter Visit Diagnoses Not on filedocumented in this encounter Additional Health Concerns Assessment Noted Time A fall risk assessment has been complete d for the patient 08/24/2024 1:00 PM EDT A Body Mass Index follow-up plan has been documented for the patient 08/24/2024 2:24 PM EDT documented as of this encounter Care Teams Power System Dispatcher Relationship Specialty Start Date End Date Dyllan Gil APRN [address] [place] [id number] PCP - General 06/11/22 Lynda Spencer MD [address] [place] [phone] Referring Physician Nephrology 06/09/22 documented as of this encounter
--- OUTSIDE RECORDS SUMMARY | 2024-10-06 08:27 | XMS_ITS | Encounter Summary ---
Author Organization [facility] Address [address] [place] [id number] Care Team Providers Care Bilingual Teacher Assistant Name Role Phone Lynda Spencer MD Unavailable [phone] Dyllan Gil APRN Primary Care Provider [phone] Encounter Details Date Type Department Care Team ([facility] Contact Info) Description 08/11/2024 Telephone [facility] Nephrology, Bone & Mineral Metabolism [address] [facility], [address] [place] [address] Ramon Quiroz [facility] [address] [place] [address] Social History Tobacco Use Types Packs/Day Years [...] Upcoming Encounters Date Type Department Care Team ([facility] st Contact Info) Description 10/19/2024 10:40 AM EDT Office Visit [facility] Endocrinology [address] [place] [address] Makayla Bahena APRN 2195 [facility] [address] [place] [address] 10/26/2024 9:45 AM EDT Office Visit [facility] [address] [place] [address] Munira Keen MD 110 [facility] 550 [place] [address] 11/16/2024 1:20 PM EDT Office Visit [facility] Nephrology, Bone & Mineral Metabolism [address] [facility], [address] [place] [address] Lynda Spencer MD [address] [facility] [address] [place] [address] documented as of this encounter Visit Diagnoses Not on filedocumented in this encounter Additional Health Concerns Assessment Noted Time A fall risk assessment has been complete d for the patient 07/20/2024 3:20 PM EDT A Body Mass Index follow-up plan has been documented for the patient 07/20/2024 4:39 PM EDT documented as of this encounter Care Teams Bilingual Teacher Assistant Relationship Specialty Start Date End Date Dyllan Gil APRN [address] [place] [address] PCP - General 06/11/22 Lynda Spencer MD [address] [address] Referring Physician Nephrology 06/09/22 documented as of this encounter
--- OUTSIDE RECORDS SUMMARY | 2024-10-06 08:27 | XMS_ITS | Encounter Summary ---
Author Organization Healthcare Address [address] [place] [address] Care Team Providers Care [place] Administrator Name Role Phone Lynda Spencer MD Unavailable [phone] Dyllan Gil APRN Primary Care Provider [phone] Encounter Details Date Type Department Care Team (Late st Contact Info) Description 04/06/2024 Lab Requisition [facility] [address] [place] [address] Stacey Escamilla MD [address] [place] [address] Awaiting organ transplant status Social [...] Description 10/19/2024 10:40 AM EDT Office Visit [facility] Endocrinology [address] [place] [address] Makayla Bahena, CLINICAL NURSE 2195 [facility] [address] [place] [address] 10/26/2024 9:45 AM EDT Office Visit [facility] [address] [place] [address] Munira Keen MD 110 [facility] [address] [place] [address] 11/16/2024 1:20 PM EDT Office Visit [facility] Nephrology, Bone & Mineral Metabolism [address] [place] [address] Lynda Spencer MD [address] [place] [address] documented as of this encounter [...] LAB BLOOD ORDERABLES Final Resul t [facility] [address] documented in this encounter Visit Diagnoses Diagnosis Awaiting organ transplant status documented in this encounter Additional Health Concerns Assessment Noted Time A fall risk assessment has been complete d for the patient 03/03/2024 3:00 PM EST A Body Mass Index follow-up plan has been documented for the patient 03/03/2024 4:28 PM EST documented as of this encounter Care Teams [place] Administrator Relationship Specialty Start Date End Date Dyllan Gil APRN [address] [place] [address] PCP - General 06/11/22 Lynda Spencer MD [address] [address] Referring Physician Nephrology 06/09/22 documented as of this encounter
--- OUTSIDE RECORDS SUMMARY | 2024-10-06 08:27 | XMS_ITS | Encounter Summary ---
Author Organization Healthcare Address [address] [place] [address] Care Team Providers Care Human Resources Professional Name Role Phone Lynda Spencer MD Unavailable [phone] Dyllan Gil APRN Primary Care Provider [phone] Encounter Details Date Type Department Care Team (Late st Contact Info) Description 03/08/2024 Lab Requisition [facility] [address] [place] [address] Stacey Escamilla MD [address] [place] [address] Awaiting organ transplant status Social [...] Visit [facility] Endocrinology [address] [place] [address] Makayla Bahena, WIRE PREPARATION MACHINE TENDER 2[address] [facility] [address] [place] [address] 10/26/2024 9:45 AM EDT Office Visit [facility] [address] [place] [address] Munira Keen MD 110 [facility] [address] [place] [address] 11/16/2024 1:20 PM EDT Office Visit [facility] Nephrology, Bone & Mineral Metabolism [address], [address] [place] [address] Lynda Spencer MD [address] [place] [address] documented as of this encounter [...] MD LAB BLOOD ORDERABLES Final Resul t [facility] [address] documented in this encounter Visit Diagnoses Diagnosis Awaiting organ transplant status documented in this encounter Additional Health Concerns Assessment Noted Time A fall risk assessment has been complete d for the patient 03/03/2024 3:00 PM EST A Body Mass Index follow-up plan has been documented for the patient 03/03/2024 4:28 PM EST documented as of this encounter Care Teams Human Resources Professional Relationship Specialty Start Date End Date Dyllan Gil APRN [address] [place] [address] PCP - General 06/11/22 Lynda Spencer MD [address] [address] Referring Physician Nephrology 06/09/22 documented as of this encounter
--- OUTSIDE RECORDS SUMMARY | 2024-10-06 08:27 | XMS_ITS | Encounter Summary ---
Author Organization Healthcare Address [address] [place] [address] Care Team Providers Care Rig Mechanic Name Role Phone Lynda Spencer MD Unavailable [phone] Dyllan Gil APRN Primary Care Provider [phone] Reason for Visit * Reason Onset Date Comments [facility] Same Day Appt/Overbook Request 07/18/2024 Encounter Details Date Type Department Care Team (Late st Contact Info) Description 07/18/2024 Telephone [facility] [address] [place] [address] Edi Macdonald MD [address] [address] [facility] Same Day Appt/Overbook Request [...] wish to see Wilbert Macedo contact number: [phone] (home) Optimal time of day to reach [...] Description 10/19/2024 10:40 AM EDT Office Visit [facility] Endocrinology [address] [place] [address] Makayla Bahena, SIGN MAINTENANCE [address] [place] [address] 10/26/2024 9:45 AM EDT Office Visit [facility] [address] [place] [address] Munira Keen MD [address] [place] [address] 11/16/2024 1:20 PM EDT Office Visit [facility] Nephrology, Bone & Mineral Metabolism [address], [address] [place] [address] Lynda Spencer MD [address] [place] [address] documented as of this encounter Visit Diagnoses Not on filedocumented in this encounter Additional Health Concerns Assessment Noted Time A fall risk assessment has been complete d for the patient 07/11/2024 1:40 PM EDT A Body Mass Index follow-up plan has been documented for the patient 07/11/2024 2:39 PM EDT documented as of this encounter Care Teams Rig Mechanic Relationship Specialty Start Date End Date Dyllan Gil APRN [address] [place] [address] PCP - General 06/11/22 Lynda Spencer MD [address] [place] [address] Referring Physician Nephrology 06/09/22 documented as of this encounter
--- OUTSIDE RECORDS SUMMARY | 2024-10-06 08:27 | XMS_ITS | Encounter Summary ---
Author Organization Healthcare Address [address] [place] [address] Care Team Providers Care Life Claims Examiner Name Role Phone Lynda Spencer MD Unavailable [phone] Dyllan Gil APRN Primary Care Provider [phone] Encounter Details Date Type Department Care Team (Late st Contact Info) Description 12/07/2023 Lab Requisition [facility] [address] [place] [address] Andrea Pierre MD [address] [place] [address] Awaiting organ transplant status Social [...] Description 10/19/2024 10:40 AM EDT Office Visit [facility] Endocrinology [address] [place] [address] Makayla Bahena, VICE PRESIDENT OF TALENT ACQUISITION 2195 [facility] [address] [place] [address] 10/26/2024 9:45 AM EDT Office Visit [facility] [address] [place] [address] Munira Keen MD 110 [facility] [address] [place] [address] 11/16/2024 1:20 PM EDT Office Visit [facility] Nephrology, Bone & Mineral Metabolism [address] [place] [facility], [address] [place] [address] Lynda Spencer MD [address] [place] [address] documented as of this encounter [...] MD LAB BLOOD ORDERABLES Final Res ult [facility] [address] documented in this encounter Visit Diagnoses Diagnosis Awaiting organ transplant status documented in this encounter Additional Health Concerns Assessment Noted Time A fall risk assessment has been complete d for the patient 10/15/2023 3:13 PM EDT A Body Mass Index follow-up plan has been documented for the patient 11/27/2023 10:13 AM EDT documented as of this encounter Care Teams Life Claims Examiner Relationship Specialty Start Date End Date Dyllan Gil APRN [address] [place] [address] PCP - General 06/11/22 Lynda Spencer MD [address] [place] [address] Referring Physician Nephrology 06/09/22 documented as of this encounter
--- OUTSIDE RECORDS SUMMARY | 2024-10-06 08:27 | XMS_ITS | Encounter Summary ---
Author Organization [facility] Address [address] [place] [address] Care Team Providers Care Rack Washer Name Role Phone Lynda Spencer MD Unavailable [phone] Dyllan Gil APRN Primary Care Provider [phone] Reason for Visit * Reason Comments Med Refill Encounter Details Date Type Department Care Team (Late st Contact Info) Description 09/16/2022 Refill [facility] Endocrinology [address] [place] [address] Makayla Bahena APRN [address] [address] Social History Tobacco Use Types [...] 30 day supply with 0 refill(s) to [facility] pharmacy. documented in this encounter Plan of Treatment Upcoming Encounters Date Type Department Care Team (Late st Contact Info) Description 10/19/2024 10:40 AM EDT Office Visit [facility] Endocrinology [address] [place] [address] Makayla Bahena, SENIOR MECHANICAL ENGINEER 2195 [facility] 125 [place] [address] 10/26/2024 9:45 AM EDT Office Visit [facility] [address] [place] [address] Munira Keen MD 110 [facility] 550 [place] [address] 11/16/2024 1:20 PM EDT Office Visit [facility] Nephrology, Bone & Mineral Metabolism [address] [facility] [place] [address] Lynda Spencer MD [address] [facility] [address] [place] [address] documented as of this encounter Visit Diagnoses Not on filedocumented in this encounter Additional Health Concerns Assessment Noted Time A fall risk assessment has been complete d for the patient 06/26/2022 10:39 AM EST A Body Mass Index follow-up plan has been documented for the patient 08/28/2022 2:04 PM EDT documented as of this encounter Care Teams Rack Washer Relationship Specialty Start Date End Date Dyllan Gil APRN [address] [place] [address] PCP - General 06/11/22 Lynda Spencer MD [address] [address] Referring Physician Nephrology 06/09/22 documented as of this encounter
--- OUTSIDE RECORDS SUMMARY | 2024-10-06 08:27 | XMS_ITS | Encounter Summary ---
Author Organization [facility] Address [address] [place] [address] Care Team Providers Care Wireline Field Operator Name Role Phone Lynda Spencer MD Unavailable [phone] Dyllan Gil APRN Primary Care Provider [phone] Encounter Details Date Type Department Care Team [...] 10:40 AM EDT Office Visit [facility] Endocrinology [address] [place] [address] Makayla Bahena APRN 2195 [facility] [address] [place] [address] 10/26/2024 9:45 AM EDT Office Visit [facility] [address] [place] [address] Munira Keen MD 110 [facility] [address] [place] [address] 11/16/2024 1:20 PM EDT Office Visit [facility] Nephrology, Bone & Mineral Metabolism [address] [place] [address] Lynda Spencer MD [address] [place] [address] documented as of this encounter Visit Diagnoses Not on filedocumented in this encounter Additional Health Concerns Assessment Noted Time A fall risk assessment has been complete d for the patient 08/24/2024 1:00 PM EDT A Body Mass Index follow-up plan has been documented for the patient 08/24/2024 2:24 PM EDT documented as of this encounter Care Teams Wireline Field Operator Relationship Specialty Start Date End Date Dyllan Gil APRN [address] [place] [address] PCP - General 06/11/22 Lynda Spencer MD [address] [place] [address] Referring Physician Nephrology 06/09/22 documented as of this encounter
--- OUTSIDE RECORDS SUMMARY | 2024-10-06 08:27 | XMS_ITS | Encounter Summary ---
Author Organization [facility] Address [address] [place] [address] Care Team Providers Care Plastic Cablemaking Machine Operator Name Role Phone Lynda Spencer MD Unavailable [phone] Dyllan Gil APRN Primary Care Provider [phone] Encounter Details Date Type Department Care Team [...] 10:40 AM EDT Office Visit [facility] Endocrinology [address] [place] [address] Makayla Bahena APRN 2195 [facility] [address] [place] [address] 10/26/2024 9:45 AM EDT Office Visit [facility] [address] [place] [address] Munira Keen MD 110 [facility] 550 [place] [address] 11/16/2024 1:20 PM EDT Office Visit [facility] Nephrology, Bone & Mineral Metabolism [address] [place] [address] Lynda Spencer MD [address] [place] [address] documented as of this encounter Visit Diagnoses Not on filedocumented in this encounter Additional Health Concerns Assessment Noted Time A fall risk assessment has been complete d for the patient 08/17/2024 3:29 PM EDT A Body Mass Index follow-up plan has been documented for the patient 08/17/2024 4:49 PM EDT documented as of this encounter Care Teams Plastic Cablemaking Machine Operator Relationship Specialty Start Date End Date Dyllan Gil APRN [address] [place] [address] PCP - General 06/11/22 Lynda Spencer MD [address] [place] [address] Referring Physician Nephrology 06/09/22 documented as of this encounter
--- OUTSIDE RECORDS SUMMARY | 2024-10-06 08:27 | XMS_ITS | Encounter Summary ---
Author Organization Healthcare Address [address] [place] [address] Care Team Providers Care Lead Medical Technologist Name Role Phone Lynda Spencer MD Unavailable Dyllan Gil APRN Primary Care Provider [phone] Encounter Details Date Type Department Care Team (Late st Contact Info) Description 01/05/2024 Lab Requisition [facility] [address] [place] [address] Stacey Escamilla MD [address] [place] [address] Awaiting organ transplant status Social [...] Description 10/19/2024 10:40 AM EDT Office Visit [facility] Endocrinology [address] [place] [address] Makayla Bahena, RETURN CHECKER 2195 [facility] [address] [place] [address] 10/26/2024 9:45 AM EDT Office Visit [facility] [address] [place] [address] Munira Keen MD 110 [facility] [address] [place] [address] 11/16/2024 1:20 PM EDT Office Visit [facility] Nephrology, Bone & Mineral Metabolism [address] [place] [address] Lynda Spencer MD [address] [place] [address] documented as of this encounter [...] MD LAB BLOOD ORDERABLES Final Resul t [facility] [address] documented in this encounter Visit Diagnoses Diagnosis Awaiting organ transplant status documented in this encounter Additional Health Concerns Assessment Noted Time A fall risk assessment has been complete d for the patient 10/15/2023 3:13 PM EDT A Body Mass Index follow-up plan has been documented for the patient 12/23/2023 2:37 PM EDT documented as of this encounter Care Teams Lead Medical Technologist Relationship Specialty Start Date End Date Dyllan Gil APRN [address] [place] [address] PCP - General 06/11/22 Lynda Spencer MD [address] [place] [address] Referring Physician Nephrology 06/09/22 documented as of this encounter
--- OUTSIDE RECORDS SUMMARY | 2024-10-06 08:27 | XMS_ITS | Encounter Summary ---
Author Organization Healthcare Address [address] [place] [address] Care Team Providers Care Semiconductors Wafer Breaker Name Role Phone Lynda Spencer MD Unavailable [phone] Dyllan Gil APRN Primary Care Provider [phone] Encounter Details Date Type Department Care Team (Late st Contact Info) Description 02/05/2024 Lab Requisition [facility] [address] [place] [address] Stacey Escamilla MD [address] [place] [address] Awaiting organ transplant status Social [...] Description 10/19/2024 10:40 AM EDT Office Visit [facility] Endocrinology [address] [place] [address] Makayla Bahena, SENIOR USER EXPERIENCE ARCHITECT 2195 [facility] [address] [place] [address] 10/26/2024 9:45 AM EDT Office Visit [facility] [address] [place] [address] Munira Keen MD 110 [facility] [address] [place] [address] 11/16/2024 1:20 PM EDT Office Visit [facility] Nephrology, Bone & Mineral Metabolism [address] [place] [address] Lynda Spencer MD [address] [place] [address] documented as of this encounter [...] MD LAB BLOOD ORDERABLES Final Resul t [facility] [address] documented in this encounter Visit Diagnoses Diagnosis Awaiting organ transplant status documented in this encounter Additional Health Concerns Assessment Noted Time A fall risk assessment has been complete d for the patient 10/15/2023 3:13 PM EDT A Body Mass Index follow-up plan has been documented for the patient 12/23/2023 2:37 PM EDT documented as of this encounter Care Teams Semiconductors Wafer Breaker Relationship Specialty Start Date End Date Dyllan Gil APRN [address] [place] [address] PCP - General 06/11/22 Lynda Spencer MD [address] [place] [address] Referring Physician Nephrology 06/09/22 documented as of this encounter
--- OUTSIDE RECORDS SUMMARY | 2024-10-06 08:27 | XMS_ITS ---
Author Organization [facility] Address [address] [place] [address] Care Team Providers Care Hat Ironer Name Role Phone Lynda Spencer MD Unavailable Dyllan Gil APRN Primary Care Provider [phone] Transplant Episode Kidney Candidate [facility] ([place], [place]) - [facility] Center waitlisted on 12/24/2022 Marked as Inactive on 03/31/2024 Reason: Temporarily too Sick Kidney CoordinatorNikki Ross RN Fax: N/A Email: N/A Scores Score Value Updated Exceptions/Reas ons CPRA 29 02/02/2024 EPTS (Calc) 32 10/06/2024 [place] Organ Diagnosis Organ Primary Contributory Kidney Diabetes Mellitus - Type II Hype rtensive Nephrosclerosis Care Team Name Role Phone Fax Email Nikki Ross RN Kidney Coordinator [phone] N/A N/A Dyllan Gil APRN Primary Care Provider [phone] N/A Christine Rosado Mail Distribution Scheme Examiner [phone] N/A N/A Lynda Spencer MD Referring Physician [phone] N/A Events Pre-Transplant Referred: 06/09/2022 Evaluation began: 07/04/2022 Committee: 07/02/2022 Center waitlisted: 12/24/2022
--- OUTSIDE RECORDS SUMMARY | 2024-10-06 08:27 | XMS_ITS | Encounter Summary ---
Author Organization [facility] Address [address] [place] [address] Care Team Providers Care Explosive Operator Name Role Phone Lynda Spencer MD Unavailable [phone] Dyllan Gil APRN Primary Care Provider [phone] Reason for Visit * Reason Comments Med Refill Encounter Details Date Type Department Care Team (Late st Contact Info) Description 10/13/2022 [facility] [address] [place] [address] Makayla Bahena APRN [address] [address] Social History Tobacco Use Types [...] for 30 day supply with 2 refill(s) [facility] pharmacy. documented in this encounter Plan of Treatment Upcoming Encounters Date Type Department Care Team (Late st Contact Info) Description 10/19/2024 10:40 AM EDT [facility] [address] [place] [address] Makayla Bahena, LEGAL TECHNICIAN 2[address] [facility] [address] [place] [address] 10/26/2024 9:45 AM EDT Office Visit [facility] [address] [place] [address] Munira Keen MD 110 [facility] 550 [place] [address] 11/16/2024 1:20 PM EDT Office [facility] Nephrology, Bone & Mineral Metabolism [address] [facility], [address] [place] [address] Lynda Spencer MD 135 [address] [facility] [address] [place] [address] documented as of this encounter Visit Diagnoses Not on filedocumented in this encounter Additional Health Concerns Assessment Noted Time A fall risk assessment has been complete d for the patient 10/09/2022 12:42 PM EDT A Body Mass Index follow-up plan has been documented for the patient 08/28/2022 2:04 PM EDT documented as of this encounter Care Teams Explosive Operator Relationship Specialty Start Date End Date Dyllan Gil APRN [address] [place] [address] PCP - General 06/11/22 Lynda Spencer MD [address] [address] Referring Physician Nephrology 06/09/22 documented as of this encounter
--- OUTSIDE RECORDS SUMMARY | 2024-10-06 08:27 | XMS_ITS | Encounter Summary ---
Author Organization Healthcare Address [address] [place] [address] Care Team Providers Care Gum Mixer Name Role Phone Lynda Spencer MD Unavailable Dyllan Gil APRN Primary Care Provider [phone] Encounter Details Date Type Department Care Team (Late st Contact Info) Description 11/04/2023 Lab Requisition [facility] [address] [place] [address] Stacey Escamilla MD [address] [place] [address] Awaiting organ transplant status Social [...] Description 10/19/2024 10:40 AM EDT Office Visit [facility] Endocrinology [address] [place] [address] Makayla Bahena, PAYLOADER OPERATOR 2195 [facility] [address] [place] [address] 10/26/2024 9:45 AM EDT Office Visit [facility] [address] [place] [address] Munira Keen MD 110 [facility] [address] [place] [address] 11/16/2024 1:20 PM EDT Office Visit [facility] Nephrology, Bone & Mineral Metabolism [address] [place] [address] Lynda Spencer MD [address] [place] [address] documented as of this encounter [...] MD LAB BLOOD ORDERABLES Final Resul t [facility] [address] documented in this encounter Visit Diagnoses Diagnosis Awaiting organ transplant status documented in this encounter Additional Health Concerns Assessment Noted Time A fall risk assessment has been complete d for the patient 10/15/2023 3:13 PM EDT A Body Mass Index follow-up plan has been documented for the patient 09/07/2023 4:29 PM EDT documented as of this encounter Care Teams Gum Mixer Relationship Specialty Start Date End Date Dyllan Gil APRN [address] [place] [address] PCP - General 06/11/22 Lynda Spencer MD [address] [place] [address] Referring Physician Nephrology 06/09/22 documented as of this encounter
--- OUTSIDE RECORDS SUMMARY | 2024-10-06 08:27 | XMS_ITS | Encounter Summary ---
Author Organization Healthcare Address [address] 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 Nephrology, Bone & Mineral Metabolism [address] [facility], [address] [place] [address] Lynda Spencer MD [address] [facility] [address] [place] [address] documented as of this encounter Visit Diagnoses Not on filedocumented in this encounter Additional Health Concerns Assessment Noted Time A fall risk assessment has been complete d for the patient 08/17/2024 3:29 PM EDT A Body Mass Index follow-up plan has been documented for the patient 08/17/2024 4:49 PM EDT documented as of this encounter Care Teams Caregivers Homecare Relationship Specialty Start Date End Date Dyllan Gil APRN [address] [place] [address] PCP - General 06/11/22 Lynda Spencer MD [address] [place] [phone] Referring Physician Nephrology 06/09/22 documented as of this encounter
--- OUTSIDE RECORDS SUMMARY | 2024-10-06 08:27 | XMS_ITS | Encounter Summary ---
Author Organization [facility] Address [address] [place] [address] Care Team Providers Care Control Director Name Role Phone Al Fischer MD Primary Care Provider [phone] Lynda Spencer MD Unavailable [phone] Dyllan Gil APRN Primary Care Provider [phone] Reason for Visit * Reason Comments Med Refill Encounter Details Date Type Department Care Team (Late st Contact Info) Description 08/21/2021 Refill [facility] Endocrinology [address] [place] [address] Makayla Bahena APRN 2[address] [facility] [address] [place] [address] Social History Tobacco Use Types [...] Description 10/19/2024 10:40 AM EDT Office Visit [facility] Endocrinology [address] [place] [address] Makayla Bahena, DEPARTMENT CLERK [address] [place] [address] 10/26/2024 9:45 AM EDT Office Visit [facility] [address] [place] [address] Munira Keen MD [address] [place] [address] 11/16/2024 1:20 PM EDT Office Visit [facility] Nephrology, Bone & Mineral Metabolism [address] , [address] [place] [address] Lynda Spencer MD [address] [place] [address] documented as of this encounter Visit Diagnoses Not on filedocumented in this encounter Additional Health Concerns Assessment Noted Time A fall risk assessment has been complete d for the patient 01/31/2021 2:02 PM EDT documented as of this encounter Care Teams Control Director Relationship Specialty Start Date End Date Al Fischer MD [address] [place] [address] PCP - General 09/07/20 06/10/22 Dyllan Gil, DEPARTMENT CLERK [address] [place] [address] PCP - General 06/11/22 Lynda Spencer MD [address] [place] [address] Referring Physician Nephrology 06/09/22 documented as of this encounter
--- OUTSIDE RECORDS SUMMARY | 2024-10-06 08:27 | XMS_ITS | Encounter Summary ---
Author Organization Healthcare Address [address] [place] [address] Care Team Providers Care Electric Meter Inspector Name Role Phone Lynda Spencer MD Unavailable [phone] Dyllan Gil APRN Primary Care Provider [phone] Reason for Visit * Reason Comments Med Refill Encounter Details Date Type Department Care Team (Late st Contact Info) Description 03/25/2023 [facility] [address] [place] [address] Makayla Bahena APRN [address] [address] Social History Tobacco Use Types [...] 10:40 AM EDT Office Visit [facility] Endocrinology [address] [place] [address] Makayla Bahena, CEMENT TRUCK LOADER 2[address] [facility] [address] [place] [address] 10/26/2024 9:45 AM EDT Office Visit [facility] [address] [place] [address] Munira Keen MD 110 [facility] [address] [place] [address] 11/16/2024 1:20 PM EDT Office Visit [facility] Nephrology, Bone & Mineral Metabolism [address] [facility], [address] [place] [address] Lynda Spencer MD [address] [facility] [address] [place] [address] documented as of this encounter Visit Diagnoses Not on filedocumented in this encounter Additional Health Concerns Assessment Noted Time A fall risk assessment has been complete d for the patient 03/09/2023 4:01 PM EST A Body Mass Index follow-up plan has been documented for the patient 03/24/2023 1:29 PM EST documented as of this encounter Care Teams Electric Meter Inspector Relationship Specialty Start Date End Date Dyllan Gil APRN [address] [place] [address] PCP - General 06/11/22 Lynda Spencer MD [address] [address] Referring Physician Nephrology 06/09/22 documented as of this encounter
--- OUTSIDE RECORDS SUMMARY | 2024-10-06 08:27 | XMS_ITS | Encounter Summary ---
Author Organization [facility] Address [address] [place] [address] Care Team Providers Care Body Recall Instructor Name Role Phone Lynda Spencer MD Unavailable [phone] Dyllan Gil APRN Primary Care Provider [phone] Reason for Visit * Reason Comments Med Refill Encounter Details Date Type Department Care Team ([facility] Contact Info) Description 08/29/2024 Refill [facility] Nephrology, Bone & Mineral Metabolism [address] [facility], [address] [place] [address] Lynda pSencer MD [address] [place] [address] Social History Tobacco Use Types [...] Description 10/19/2024 10:40 AM EDT [facility] [address] [place] [address] Makayla Bahena APRN 2[address] [facility] [address] [place] [address] 10/26/2024 9:45 AM EDT Office Visit [facility] [address] [place] [address] Munira Keen MD 110 [facility] [address] [place] [address] 11/16/2024 1:20 PM EDT Office Visit [facility] Nephrology, Bone & Mineral Metabolism [address] [facility] [place] [address] Lynda Spencer MD [address] [facility] [address] [place] [address] documented as of this encounter Visit Diagnoses Not on filedocumented in this encounter Additional Health Concerns Assessment Noted Time A fall risk assessment has been complete d for the patient 08/24/2024 1:00 PM EDT A Body Mass Index follow-up plan has been documented for the patient 08/24/2024 2:24 PM EDT documented as of this encounter Care Teams Body Recall Instructor Relationship Specialty Start Date End Date Dyllan Gil APRN [address] [place], [place] [id number] PCP - General 06/11/22 Lynda Spencer MD [address] [id number] Referring Physician Nephrology 06/09/22 documented as of this encounter
--- OUTSIDE RECORDS SUMMARY | 2024-10-06 08:28 | XMS_ITS | Clinical Summary ---
Author Organization [facility] Address [address] [place] [address] Care Team Providers Care Reference Assistant Name Role Phone Lynda Spencer MD Unavailable [phone] Dyllan Gil APRN Primary Care Provider [phone] Allergies Active Allergy Reactions Criticality Noted Date [...] nephropathy, with long-term current use of insulin (CMS/[facility]) Use to check BG 2 times a [...] tablet 4 Active Blood Glucose Monitoring Suppl (My eShoe Verio Flex System) w/Device kitIndications:Ty pe 2 diabetes mellitus with hyperglycemia, unspecified whether penitentiary insulin use ([facility]) Use to test blood glucose daily DX [...] kidney disease) stage 4, GFR 15-29 ml/min ([facility]) Take 1 tablet by mouth daily. 90 [...] Date Type Department Care Team Description 08/29/2024 [facility] Nephrology, Bone & Mineral Metabolism [address] [facility] [place] [address] Lynda Spencer MD 08/24/2024 1:40 PM EDT Ancillary Procedure [facility] [address] [place] [address] 08/24/2024 1:15 PM EDT Office Visit [facility] [address] [place] [address] Carolee Quiles MD 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 type 2 diabetes mellitus (Primary Dx); Diabetic cataract; Pseudophakia of right eye; Right posterior capsular opacification 08/24/2024 Travel 08/17/2024 4:00 PM EDT Office Visit [facility] Nephrology, Bone & Mineral Metabolism [address] [place] [address] Lynda Spencer MD CKD (chronic kidney disease) stage 4, GFR 15-29 ml/min ([facility]) (Primary Dx); Essential hypertension 08/17/2024 Travel 08/17/2024 Telephone [facility] [address] [place] [address] Nikki Ross, RN 08/11/2024 Telephone [facility] Nephrology, Bone & Mineral Metabolism [address] [place] [address] Ramon Quiroz 08/03/2024 Telephone [facility] [address] [place] [address] Nikki Ross RN 07/20/2024 3:45 PM EDT Procedure Visit [facility] [address] [place] [address] Munira Keen MD 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 type 2 diabetes mellitus (CMS/HCC) (Primary Dx); Vitreous hemorrhage of left eye ([facility]/HCC); Diabetic cataract (CMS/HCC) 07/20/2024 8:30 AM EDT Ancillary Procedure [facility] [address] [place] [address] 07/20/2024 Travel 07/18/2024 Telephone [facility] [address] [place] [address] Sherry Fu, RN 07/18/2024 Telephone [facility] [address] [place] [address] Edi Macdonald MD [facility] Same Day Appt/Overbook Request 07/13/2024 Telephone [facility] [address] [place] [address] Nikki Ross, RN 07/12/2024 Telephone [facility] [address] [place] [address] Nikki Ross, RN 07/12/2024 Telephone [facility] [address] [place] [address] Nikki Ross, RN 07/12/2024 Telephone [facility] Nephrology, Bone & Mineral Metabolism [address] [facility] [place] [address] Lynda Spencer MD Med Refill 07/12/2024 Telephone [facility] [address] [place] [address] Nikki Ross, RN 07/11/2024 2:20 PM EDT Office Visit [facility] [address] [place] [address] Temitope Luque APRN End stage renal disease ([facility]) 07/11/2024 1:00 PM EDT Social Work [facility] [address] [place] [address] Christine Rosado End stage renal disease ([facility]) 07/11/2024 11:24 AM EDT - 07/11/2024 11:59 PM EDT Hospital Encounter [facility] [address] [place] [address] End stage renal disease (CMS/HCC) Discharge Disposition: Home or Self Care 07/11/2024 7:50 AM EDT - 07/11/2024 11:23 AM EDT Hospital Encounter [facility] [address] [place] [address] Discharge Disposition: Home or Self Care 07/11/2024 7:50 AM EDT - 07/11/2024 11:23 AM EDT Hospital Encounter [facility] [address] [place] [address] End stage renal disease (CMS/HCC) Discharge Disposition: Home or Self Care 07/11/2024 7:50 AM EDT - 07/11/2024 11:23 AM EDT Hospital Encounter [facility] [address] [place] [address] End stage renal disease ([facility]/HCC) Discharge Disposition: Home or Self Care 07/11/2024 Telephone [facility] [address] [place] [address] Nikki Ross, RN 07/11/2024 Travel from Last [...] Description 10/19/2024 10:40 AM EDT [facility] [address] [place] [address] Makayla Bahena, SKI GUIDE [address] [place] [address] 10/26/2024 9:45 AM EDT Office Visit [facility] [address] [place] [address] Munira Keen MD [address] [place] [address] 11/16/2024 1:20 PM EDT Office Visit [facility] Nephrology, Bone & Mineral Metabolism [address] [place] [address] Lynda Spencer MD [address] [place] [address] Health Maintenance Due Date Last Done Comments UKY-Infant/Child/Adol SDOH Screenings 1975 Diabetes: Dental Exam 1984 [...] 2019 FIT 2019 FOBT 2019 Sigmoidoscopy 2019 [id number] Vaccine (2 - 2023- season) 2023 07/31/2020 [...] 12:43 PM EDT End stage renal disease ([facility]) QUANTIFERON TB GOLD PLUS Routine 07/11/2024 12:43 PM EDT End stage renal disease ([facility]) XR PANOREX Routine 07/11/2024 12:11 PM EDT End stage renal disease ([facility]) NM MYOCARDIAL SPECT REGADENOSON STRESS (MULTI STUDY) Routine 07/11/2024 10:30 AM EDT End stage renal disease ([facility]) ECHO, ADULT TRANSTHORACIC COMPLETE Routine 07/11/2024 9:29 AM EDT End stage renal disease ([facility]) MAMMOGRAPHY BREAST DIAGNOSTIC TOMOSYNTHESIS BILATERAL Routine 07/21/2022 [...] 2 MG/0.08ML Route: Intravitreal, Site: Left Eye [facility]: 52178-709-04, Lot: [id number], Expiration date: 11/19/2024 Post-op Post injection exam [...] 2.75 MG/0.11ML Route: Intravitreal, Site: Left Eye [facility]: 92670-318-47, Lot: [id number], Expiration date: 08/04/2024 Post-op Post injection exam [...] ci dme left eye (OS): unable Result [facility] Munira Keen MD OPHTH TOMOGRAPHY Final Result * HEPATITIS B SURFACE ANTIBODY, QUANTITATIVE (07/11/2024 12:43 PM EDT) Pathologist [facility] Hepatitis B Surface Antibody, Quantitative <8.00 NonReactiv e: <8, Grayzone: 8 - <12, Reactive: >= 12 mIU/mL 07/11/2024 2:[address] [facility] Comment: Nonreactive. Individual is considered not immune to HBV infection. Blood Venous blood specimen / Unknown Venipuncture / Unknown 07/11/2024 12:43 PM EDT 07/11/2024 1:29 PM EDT Result [facility] Stacey Escamilla MD LAB BLOOD ORDERABLES Final Resul t Performing Organization Address City/State/[facility] Co de Phone Number [facility] [address] [place] [address] * Cytomegalovirus (CMV) Quantitative PCR (07/11/2024 12:43 PM EDT) Pathologist [facility] Cytomegalovirus (CMV) Quantitative Interpretation Not Detected Not [...] is FDA approved for clinical use. Result [facility] Stacey Escamilla MD LAB BLOOD ORDERABLES Final Resul t Performing Organization Address City/State/[facility] Co de Phone Number [facility] [address] [place] [address] * HIV 1 & 2 Antibody/Antigen Screen (07/11/2024 12:43 PM EDT) Pathologist [facility] HIV 1 & 2 Antibody/Antigen Screen Non [...] ORDERABLES Final Resul t Performing Organization Address [facility] Co de Phone Number [facility] [address] [place] [address] * HLA Antibody Testing (LSA) (07/11/2024 12:43 PM EDT) Blood Venous blood specimen / Unknown Venipuncture / Unknown 07/11/2024 12:43 PM EDT 07/11/2024 1:21 PM EDT us Stacey Escamilla MD LAB BLOOD ORDERABLES Final Resul t Performing Organization Address [facility] Co de Phone Number [facility] [address] [place] [address], [place] * Hepatitis C Antibody (07/11/2024 12:43 PM EDT) Pathologist [facility] Hepatitis C Antibody Negative Negative 07/11/2024 2:[address] [facility] Blood Venous blood specimen / Unknown Venipuncture / Unknown 07/11/2024 12:43 PM EDT 07/11/2024 1:29 PM EDT us Stacey Escamilla MD LAB BLOOD ORDERABLES Final Resul t Performing Organization Address [facility] Co de Phone Number [facility] [address] [place] [address] * Serum Drug Screen (07/11/2024 12:43 PM [...] EDT Test performed by LC-MS/MS at the [facility] Laboratory. This test was developed and its performance characteristics determined by [facility]. It has not been cleared or approved by the FDA. The laboratory is regulated under CLIA as qualified to perform high-complexity testing. This test is used for clinical purposes. us Stacey Escamilla MD LAB BLOOD ORDERABLES Final Resul t [facility] [address] [place] [address] * (ABNORMAL) Nicotine Cotinine Metabolite (07/11/2024 12:43 PM EDT) [facility] NICOTINE 8(H) <5 ng/mL 07/14/2024 3:[address] [facility] Cotinine 232(H) <5 ng/mL 07/14/2024 3:[address] [facility] Blood Venous blood specimen / Unknown Venipuncture / Unknown 07/11/2024 12:43 PM EDT 07/11/2024 1:[address] [facility] - 07/14/2024 3:03 PM EDT Testing performed by LC-MS/MS at the [facility]Toxicology Laboratory. This test was developed and its performance characteristics determined by [facility]. This assay has not been cleared by the FDA. The laboratory is regulated under CLIA as qualified to perform high-complexity testing. This test is used for clinical purposes. Stacey Escamilla MD LAB BLOOD ORDERABLES Final Resul t Performing Organization Address City/[facility]/ZIP Co de Phone Number [facility] [address] [place] [address] * Hepatitis B Core Total Antibody IgG,IgM (07/11/2024 12:43 PM EDT) [facility] Hepatitis B Core Total Antibody IgG,IgM Negative Negative 07/11/2024 2:40 PM EDT [facility] Blood Venous blood specimen / Unknown Venipuncture / Unknown 07/11/2024 12:43 PM EDT 07/11/2024 1:29 PM EDT Stacey Escamilla MD LAB BLOOD ORDERABLES Final Resul t [facility] [address] [place] [address] * Quantiferon TB Gold (07/11/2024 12:43 PM EDT) [facility] Quantiferon TB Gold Plus Result Negative [...] ORDERABLES Final Resul t Performing Organization Address City/[facility]/ZIP Co de Phone Number [facility] [address] [place] [address] * RPR With Reflex to Titer (Those With Known Syphilis) (07/11/2024 12:43 PM EDT) Rapid Plasma Reagin Nonreactive Non Reactive 07/12/2024 1:[address] [facility] Blood Venous blood specimen / Unknown Venipuncture / Unknown 07/11/2024 12:43 PM EDT 07/11/2024 1:29 PM EDT us Stacey Escamilla MD LAB BLOOD ORDERABLES Final Resul t [facility] [address] [place] [address] * Hepatitis B Surface Antigen (07/11/2024 12:43 PM EDT) Hepatitis B Surf Antigen Negative Negative 07/11/2024 2:[address] [facility] Blood Venous blood specimen / Unknown Venipuncture / Unknown 07/11/2024 12:43 PM EDT 07/11/2024 1:29 PM EDT us Stacey Escamilla MD LAB BLOOD ORDERABLES Final Resul t [facility] [address] [place] [address] * (ABNORMAL) CBC W/O Differential (07/11/2024 12:43 [...] ORDERABLES Final Resul t Performing Organization Address [facility]/ZIP Co de Phone Number [facility] [address] [place] [address] * (ABNORMAL) Hemoglobin A1c (07/11/2024 12:43 PM [...] Adults <6.0% Children and Adolescents <7.5% Source: [place] [employer]. Standards of medical care in diabetes,2017. Diabetes Care.2017:40 (suppl 1):S1-S135. HbA1c assay performed by an ion-exchange chromatography method that is certified traceable to the DCCT. us Stacey Escamilla MD LAB BLOOD ORDERABLES Final Resul t Performing Organization Address [facility] Co de Phone Number [facility] [address] [place] [address] * (ABNORMAL) Comprehensive metabolic panel (07/11/2024 12:43 [...] MD LAB BLOOD ORDERABLES Final Resul t [facility] [address] [place] [address] * XR Panorex (07/11/2024 12:11 PM EDT) [...] performed under direct supervision of the reading art therapist. Study Impression There is no significant patient [...] mean PAP 21 mmHg FLORENCIO ISCV PA VA(ACCEL) 18.8 mmHg FLORENCIO ISCV PA acc slope [...] FLORENCIO ISCV LV V1 mean 59.2 cm/sec FLORENCIO ISCV LV max PG 2.8 mmHg FLORENCIO [...] Narrative [facility] - 03/09/2001 11:24 AM EST [facility] MR #: [id number] [facility] [place], [place] [address] 1975 (Age: 25) FW Collect Date: 03/01/2001 00:00 Receipt Date: 03/02/2001 12:20 Page 1 DEPARTMENT OF PATHOLOGY AND LABORATORY MEDICINE CYTOPATHOLOGY REPORT Email: [email or web address] ATTENDING MD/Practitioner: Ricky Cardoso MD [place] [facility] [place] [facility] OTHER MD(S): Chace Muhammad MD Reported: 03/09/2001 [...] results is suggested (please call Microbiology at [phone] for results). CLINICAL INFORMATION: Menstrual History: Date of Last Menstrual Period: {Not Provided} SPECIMEN DESCRIPTION: A: THIN PREP (CERVICAL/VAGINAL) THIN PREP PROCESS CELLULAR ENHANCEMENT ICD: V76.2 CERVIX, SPECIAL SCREENING FOR MALIGNANT NEOPLASM F: A; THIN SCRN 40098 SNOMED CODES: A; [id number] In cases where a pathologist has signed out the report, the service has been rendered in part by a resident. The signing pathologist has performed and is responsible for the reported pathologic evaluation. us Historical Provider MD LAB PATHOLOGY ORDERABLES Final Result [facility] from Last 3 Months or Most Recently Relevant to Health Maintenance Insurance [employer] Care Teams Reference Assistant Relationship Specialty Start Date End Date Dyllan Gil APRN [address] [place] [address] [place] [address] PCP - General 06/11/22 Lynda Spencer MD [facility] [address] [phone] Referring Physician Nephrology 06/09/22
== END 2024-03-04 23:59 | disposition home or self-care (01) ==
LOC: LAB 10-06 08:25
PROVIDERS: PCP Nurse Practitioner Family; Visit Provider Internal Medicine Nephrology
DX: Z00.00 Encounter for general adult medical examination without abnormal findings (principal)
CPT/HCPCS: 36415

== ENCOUNTER 2024-03-08 07:46 | Day surgery (SDC) | payer MEDICAID, SELFPAY ==
[2024-03-08 09:34] VITALS: BMI 27.2
[2024-03-08 09:35] VITALS: BP 196/94; PULSE 70; RESP 18; TEMP 36.3; O2SAT 100
[2024-03-08] MEDS: CYCLOPENTOLATE 2% OPHTH SOLN 2ML BOTTLE OP ×3 (09:40→09:50)
[2024-03-08] MEDS: PHENYLEPHRINE 2.5% OPHTH SOLN 2ML OP ×3 (09:40→09:50)
[2024-03-08] MEDS: TETRACAINE 0.5% OPTH SOL 15ML OP ×3 (09:40→09:50)
[2024-03-08] MEDS: LACTATED RINGERS 1000ML 1,000 ML 25 ML IV (09:57)
[2024-03-08 10:18] VITALS: BP 194/92; PULSE 86; RESP 18; O2SAT 99
[2024-03-08] MEDS: MIDAZOLAM 2MG/2ML VIAL 2 MG (10:18)
[2024-03-08 10:23] VITALS: BP 201/85; PULSE 78; RESP 18; O2SAT 100
[2024-03-08] MEDS: TOBRAMYCIN/DEX OPTH SUSP 2.5ML OP (10:27)
[2024-03-08] MEDS: TIMOLOL 0.5% OPTH SOLN 5ML OP (10:27)
[2024-03-08] MEDS: LIDOCAINE 1% PF 2ML AMPULE 2 ML IJ (10:27)
[2024-03-08 10:28] VITALS: BP 202/86; PULSE 78; RESP 18; O2SAT 98
[2024-03-08 10:33] VITALS: BP 180/85; PULSE 78; RESP 18; O2SAT 99
[2024-03-08 10:38] VITALS: BP 191/85; PULSE 85; RESP 17; TEMP 36.6; O2SAT 100
[2024-03-09 09:54] LABS: POC Glucose,Bedside 109 (70-110)
== END 2024-03-08 10:48 | disposition home or self-care (01) ==
PROVIDERS: PCP Nurse Practitioner Family; Visit Provider Ophthalmology
PROC: (CPT 66984; principal; 2024-03-08 10:00)
DX: H26.9 Unspecified cataract (principal)
CPT/HCPCS: 66984; 82962; J2250; J7120; V2632

== ENCOUNTER 2024-04-05 15:34 | Outpatient (CLI) | payer MEDICAID, SELFPAY ==
[2024-04-05 19:05] LABS: Basophils % 0.5 % (0.1-2.0); Eosinophils # 0.3 K/mm3 (0.0-0.4); Eosinophils % 3.3 % (0.1-12.0); Hematocrit 35.2 % (37.0-47.0); Hemoglobin 11.5 g/dL (12.2-16.2); Lymphocytes # 1.9 K/mm3 (0.7-4.5); Lymphocytes % 23.7 % (10-50); Mean Corpuscular HGB Conc 32.8 g/dL (31.8-35.4); Mean Corpuscular Hemoglobin 30.2 pg (27.0-31.2); Mean Corpuscular Volume 92.1 fl (81-99); Mean Platelet Volume 11.2 fl (7.4-10.4); Monocytes # 0.4 K/mm3 (0.1-1.0); Monocytes % 4.6 % (1.7-9.3); Neutrophils # 5.5 K/mm3 (1.8-7.8); Neutrophils % 67.8 % (37.0-80.0); Platelet Count 215 K/mm3 (142-424); Red Blood Count 3.82 M/mm3 (4.20-5.40); Red Cell Distribution Width 13.3 % (11.5-17.5); White Blood Count 8.2 K/mm3 (4.8-10.8)
[2024-04-05 20:07] LABS: Alanine Aminotransferase 27 U/L (12-78); Albumin Level 3.9 g/dl (3.5-5.0); Albumin/Globulin Ratio 1.5 (1.1-1.8); Alkaline Phosphatase 110 U/L (38-126); Aspartate Amino Transferase 28 U/L (14-36); Bilirubin,Total 0.4 mg/dl (0.2-1.3); Blood Urea Nitrogen 46 mg/dl (7-17); Calcium 9.3 mg/dl (8.4-10.2); Carbon Dioxide 22 mmol/L (22.0-30.0); Chloride 110 mmol/L (98-107); Chol/HDL Ratio 3.1 (1-3.5); Cholesterol 156 mg/dl (140-200); Estimated Glomerular Filt Rate 28 ml/min (>60); GFR (African American) 34 ML/MIN (>60); Globulin 2.6 g/dL (1.3-3.2); Glucose 148 mg/dl (74-100); HDL Cholesterol 50 mg/dl (40-60); Sodium 141 mmol/L (136-145); Total Protein,Serum 6.5 g/dl (6.3-8.2); Triglycerides 121 mg/dl (30-150); VLDL Cholesterol 24 mg/dL (0-40)
[2024-04-05 20:35] LABS: HIV (1&2) Antibody Rapid NONREACTIVE (NONREACTIVE)
[2024-04-05 20:48] LABS: Thyroid Stimulating Hormone 0.89 uIU/mL (0.465-4.68)
[2024-04-06 10:18] LABS: Hemoglobin A1C 7.3 % (4.0-6.0)
[2024-04-07 08:17] LABS: HCV Ab Non Reactive (Non Reactive)
== END 2024-04-05 23:59 | disposition home or self-care (01) ==
LOC: LAB 15:34
PROVIDERS: PCP Nurse Practitioner Family; Visit Provider Nurse Practitioner Family
DX: N18.9 Chronic kidney disease, unspecified (principal); Z11.59 Encounter for screening for other viral diseases; E11.319 Type 2 diabetes mellitus with unspecified diabetic retinopathy without macular edema; Z79.4 Long term (current) use of insulin; Z68.27 Body mass index [BMI] 27.0-27.9, adult
CPT/HCPCS: 36415; 80050; 80053; 80061; 82306; 83036; 84443; 85025; 86803; 87389

== ENCOUNTER 2024-04-25 11:32 | Emergency (ER) | payer MEDICAID, SELFPAY ==
[2024-04-25] VITALS (7 sets, daily range): BP systolic 150–180; BP diastolic 85–105; PULSE 81–163; RESP 14–30; TEMP 36.8; O2SAT 82–100; BMI 25.8
--- NOTE | 2024-04-25 11:43 | ECG_ITS ---
APPROVED REPORT Exam: Resting ECG HR:160 bpm ECG Measurements Heart Rate 160 AXES QRSd 97 QRS -52 QT 267 T 83 QTc 356 Conclusion SUPRAVENTRICULAR TACHYCARDIA PATTERN CONSISTENT WITH PULMONARY DISEASE LEFT ANTERIOR FASCICULAR BLOCK [QRS AXIS <= -45, QR IN I, RS IN II] LEFT VENTRICULAR HYPERTROPHY AND ST-T CHANGE [VOLTAGE CRITERIA PLUS ST/T ABNORMALITY] CRITICAL TEST RESULT UNCONFIRMED REPORT Electronically signed by : Alexander Lam, 04/25/2024 15:32:36
--- NOTE | 2024-04-25 12:04 | PC.NURSE ---
Dr. Lam aware of HR and rhythm. States we will prepare for Adenosine. Placed Zoll monitor & pads on pt at this time.
--- NOTE | 2024-04-25 12:25 | XR_ITS ---
FINAL REPORT CLINICAL HISTORY: Shortness of breath COMPARISON: 03/12/2023 FINDINGS: A portable view of the chest was obtained. Cardiac and mediastinal silhouettes are within normal limits. The lungs are clear. There is no pleural effusion or pneumothorax. IMPRESSION: No acute process on this portable exam. Reviewed, Interpreted and Dictated by Genoveva Michaels MD Transcribed by Ping Espinoza Authenticated and . [facility]
[2024-04-25 12:31] LABS: Basophils # 0.1 K/mm3 (0-0.2); Basophils % 0.7 % (0.1-2.0); Eosinophils # 0.3 K/mm3 (0.0-0.4); Eosinophils % 2.8 % (0.1-12.0); Hematocrit 37.5 % (37.0-47.0); Hemoglobin 12.4 g/dL (12.2-16.2); Lymphocytes % 17.3 % (10-50); Mean Corpuscular HGB Conc 33.1 g/dL (31.8-35.4); Mean Corpuscular Hemoglobin 29.8 pg (27.0-31.2); Mean Corpuscular Volume 90.1 fl (81-99); Mean Platelet Volume 12.8 fl (7.4-10.4); Monocytes # 0.5 K/mm3 (0.1-1.0); Monocytes % 4.1 % (1.7-9.3); Neutrophils # 8.4 K/mm3 (1.8-7.8); Neutrophils % 74.9 % (37.0-80.0); Platelet Count 215 K/mm3 (142-424); Red Blood Count 4.16 M/mm3 (4.20-5.40); Red Cell Distribution Width 12.4 % (11.5-17.5); White Blood Count 11.3 K/mm3 (4.8-10.8)
--- NOTE | 2024-04-25 12:37 | ED_ITS ---
Discharge Plan Disposition Patient Disposition: Home, Self-Care Prescriptions Prescriptions: No Action (DME) OneTouch Verio test strips Strip See Rx Instructions .ROUTE .MEDSUPPLY Qty: 10 Rx Instructions: As directed loratadine [Claritin] 10 mg tablet 10 mg PO DAILY Qty: 30 3RF (DME) pen needle, diabetic [BD Ultra-Fine Mini Pen Needle] 31 gauge x 3/16 needle See Rx Instructions .ROUTE .MEDSUPPLY Qty: 50 Rx Instructions: As directed losartan 25 mg tablet 25 mg PO DAILY cholecalciferol (vitamin D3) 50 mcg (2,000 unit) capsule 2,000 unit PO DAILY Qty: 30 0RF polyethylene glycol 3350 17 gram/dose powder See Rx Instructions .ROUTE .COMPLEX Qty: 510 1RF Rx Instructions: MIX 17 GRAMS IN 8 OUNCES OF WATER AND DRINK ONCE A DAY quetiapine [Seroquel] 200 mg tablet 200 mg PO HS Qty: 30 2RF lamotrigine 100 mg tablet 150 mg PO BID Qty: 60 2RF lidocaine 5 % ointment 1 applic topical TID PRN (Reason: pain) Qty: 50 0RF (DME) blood-glucose meter,continuous 1 EACH misc See Rx Instructions MISCELLANE .MEDSUPPLY Rx Instructions: As directed calcium carbonate 500 MG tablet 500 mg PO DAILY carvedilol 3.125 mg tablet 3.125 mg PO DAILY Rx Instructions: TAKE ONE TABLET BY MOUTH 2 TIMES A DAY WITH FOOD atorvastatin 20 mg tablet 20 mg PO DAILY Rx Instructions: TAKE ONE TABLET BY MOUTH ONCE A DAY famotidine 20 mg tablet 20 mg PO DAILY Rx Instructions: TAKE ONE TABLET BY MOUTH ONCE A DAY Referrals Follow up/Referrals: Raad Paula DO [Primary Care Provider] - See instructions Activity Restrictions/Add. Instructions Additional Instructions/Restrictions: No further workup needed for your spontaneously converted supraventricular tachycardia. You may follow-up with your media monitor if you would like and return with any significant worsening of your symptoms. Clinical Impressions Clinical Impression: Sustained SVT Print Language Print Language: Indonesian Discharge ED Provider: Arnoldo Lam General Adult HPI General Chief complaint: Shortness of Breath/Dyspnea Stated complaint: dizzy,soa Time Seen by Provider: 04/25/24 11:49 Mode of Arrival: Wheelchair Source of Information: Patient Limitations: No Limitations Description of Symptoms (Recalled from ER Triage Doc. by RN): pt states she woke up this AM feeling bad. pt c/o SOA worse with exertion, lightheadedness, dizziness, and photophobia (no PINEDA). pts HR is 160BPM. I attempted to have the pt bear down to stimulate the vagal nerve. no decrease in heart rate. pt denies chest/abd pain. History of Present Illness HPI narrative: 49-year-old female presents today with sudden palpitations as well as lightheadedness and shortness of breath. No history of arrhythmia that she is aware of she is not anticoagulated for this reason but she does have a history of cardiac abnormalities is followed by cardiology here. Denies any preceding symptoms prior to today in the setting onset of symptoms. Related Data Home Medications ?Medication ?Instructions ?Recorded ?Confirmed blood sugar diagnostic (OneTouch #10 ea 01/22/21 04/05/24 Verio test strips) pen needle, diabetic 31 gauge x #50 ea 04/09/21 04/05/2416 (BD Ultra-Fine Mini Pen Needle) blood-glucose meter,continuous 07/15/21 04/05/24 calcium carbonate 500 mg PO DAILY Supplement 07/15/21 04/05/24 losartan 25 mg tablet 25 mg PO DAILY 08/05/23 04/05/24 atorvastatin 20 mg tablet 20 mg PO DAILY 03/08/24 04/05/24 carvedilol 3.125 mg tablet 3.125 mg PO DAILY 03/08/24 04/05/24 famotidine 20 mg tablet 20 mg PO DAILY 03/08/24 04/05/24 Previous Rx's ?Medication ?Instructions ?Recorded loratadine 10 mg tablet (Claritin) 10 mg PO DAILY #30 tabs 03/05/23 polyethylene glycol 3350 17 See Rx Instructions .Route 10/23/23 gram/dose oral powder .COMPLEX BOWELS #510 grams cholecalciferol (vitamin D3) 50 2,000 unit PO DAILY Supplement #30 11/19/23 mcg (2,000 unit) capsule caps quetiapine 200 mg tablet (Seroquel) 200 mg PO HS Anxiety #30 tabs 02/23/24 lamotrigine 100 mg tablet 150 mg (1.5 x 100 mg) PO BID MOOD 02/29/24 #60 tabs lidocaine 5 % topical ointment 1 applic topical TID PRN pain #50 03/04/24 grams Allergies Allergy/AdvReac Type Severity Reaction Status Date / Time fish oil (FISH OIL) Allergy Mild Hives Verified 04/25/24 11:57 prednisolone Allergy Mild Other Verified 04/25/24 11:57 PFSH [facility] Disclaimer: The information contained in this section may have been updated after the patient was seen, as this information can be updated by other users. Medical History Chronic kidney disease History of back pain History of cataract Edema Encounter for pre-operative cardiovascular clearance Renal disease Hydradenitis Bilateral carpal tunnel syndrome Bipolar II disorder GERD (gastroesophageal reflux disease) Patient is on omeprasole and I have encouraged her to continue. Lymphedema CAD (coronary artery disease) COPD (chronic obstructive pulmonary disease) Dyspnea Tobacco abuse HTN (hypertension) Diastolic dysfunction Subungual hematoma of great toe of left foot Candidiasis, intertrigo Subungual hematoma of fifth toe of left foot Back Pain Osteoarthritis Leg swelling Memory Loss Neck pain Vitamin D deficiency (~06/29/17) Hyperlipidemia (~06/29/17) Diabetes mellitus Type 2 diabetes mellitus Surgical History H/O gastric sleeve History of ankle surgery RIGHT ANKLE SX - SCREWS History of incision and drainage History of bilateral carpal tunnel release History of section Family History Mother Diabetes Father Diabetes Lymphoma Social History Smoking Status: Current every day smoker smoking status stop date: 1 year ago quit status: considering quitting second hand exposure: No alcohol intake: never substance use type: denies use current occupational status: disabled Travel in the last 8 weeks: None adopted: No caregiver/support person: No foster care: No household members: spouse housing: apartment lives independently: Yes marital status: number of children: 1 number of grandchildren: 0 education level: high school service: No assisted: No current occupational exposures/hazards: No Hx Recent Travel: No sexually active: No caffeine: Yes physical activity: none phil/mormon: Roman Catholic special phil needs: No working smoke detector in home: Yes fire extinguisher in home: No carbon monox detector in home: No firearms in home: No do you feel safe at home: Yes Have you lived/traveled outside US in past 30 days?: No Contact w/someone who lives/traveled outside US past 30 days?: No Exposure to someone with infectious disease in past 14 days?: No Do you have a fever (greater than 100.4 F or 38 C)?: No Have you tested positive for COVID-19: No Exposed to someone with COVID-19 in past 14 days?: No Do you have a sore throat?: No Do you have a cough?: No Do you have any weakness?: Yes Do you have any diarrhea?: No Are you experiencing any unusual bleeding?: No Do you have any muscle aches/pain?: No Do you have any abdominal pain?: No Are you experiencing loss of taste or smell?: No Other Medical History Have you received the Flu Vaccine for this season: No Have you received the Pneumonia Vaccine: No ROS Obtained: Yes All systems reviewed & no additional complaints except as documented Physical Exam General General appearance: alert Respiratory Respiratory exam: Present normal lung sounds bilaterally Cardiovascular Cardiovascular exam: Present tachycardia (Regular rhythm heart rate around 165) Neurological Exam Neurological exam: Present alert and oriented X3 Medical Decision Making Medical Records Screening: Per USPSTF and CDC recommendations, given the prevalence of disease in our region, it is our hospital?s policy to screen for HIV and viral Hepatitis for all patients aged 18 and over and those with ongoing risk factors. Tyshawn Inquiry Pt receiving controlled substance: No Vital Signs: 04/25/24 11:41 04/25/24 11:49 04/25/24 12:00 Temperature 98.2 F Temperature Source Oral Pulse Rate 163 H Pulse Rate [Left] 160 H Respiratory Rate 14 30 H Blood Pressure 150/94 H 156/104 H Blood Pressure [Right Arm] 150/94 H Blood Pressure Mean [Right Arm] 112 Blood Pressure Source [Right Arm] Automatic Cuff Blood Pressure Position [Right Arm] Sitting 02 Sat by Pulse Oximetry 100 100 100 Oxygen Delivery Method Room Air Room Air Room Air 04/25/24 12:30 04/25/24 12:36 04/25/24 13:00 Temperature Temperature Source Pulse Rate 159 H 93 H 88 Pulse Rate [Left] Respiratory Rate 23 17 Blood Pressure 158/105 H 180/93 H 167/105 H Blood Pressure [Right Arm] Blood Pressure Mean [Right Arm] Blood Pressure Source [Right Arm] Blood Pressure Position [Right Arm] 02 Sat by Pulse Oximetry 100 100 100 Oxygen Delivery Method Room Air Room Air Room Air 04/25/24 13:30 Temperature Temperature Source Pulse Rate 81 Pulse Rate [Left] Respiratory Rate 15 Blood Pressure 174/98 H Blood Pressure [Right Arm] Blood Pressure Mean [Right Arm] Blood Pressure Source [Right Arm] Blood Pressure Position [Right Arm] 02 Sat by Pulse Oximetry 100 Oxygen Delivery Method Lab Data Lab results reviewed: Yes I reviewed the patient's lab results. Lab Results 04/25/24 11:48: WBC 11.3 H, RBC 4.16 L, Hgb 12.4, Hct 37.5, MCV 90.1, MCH 29.8, MCHC 33.1, RDW 12.4, Plt Count 215, MPV 12.8 H, Neut % (Auto) 74.9, Lymph % (Auto) 17.3, Curry % (Auto) 4.1, Eos % (Auto) 2.8, Baso % (Auto) 0.7, Neut # (Auto) 8.4 H, Lymph # (Auto) 2.0, Curry # (Auto) 0.5, Eos # (Auto) 0.3, Baso # (Auto) 0.1, Sodium 137, Potassium 5.5 H, Chloride 108 H, Carbon Dioxide 21 L, Anion Gap 13.5, BUN 37 H, Creatinine 2.10 H, Estimated Creat Clear 37, Estimated GFR 25 L, Est GFR ( Amer) 30 L, Glucose 268 H, Calcium 9.5, Magnesium 2.3, Total Bilirubin 0.5, AST 35, ALT 28, Alkaline Phosphatase 149 H, Troponin I < 0.01, Total Protein 7.2, Albumin 4.1, Globulin 3.1, Albumin/Globulin Ratio 1.3, TSH 1.48 04/25/24 11:48 04/25/24 11:48 Orders (Tests/Meds): ORDERS Category Date Time Status CXR --portable [XR chest portable] Stat Exams 04/25/24 12:25 Taken CBC w/Auto Diff [Complete Blood Count Auto Diff] Stat Lab 04/25/24 11:48 Completed CMP [Comprehensive Metabolic Panel] Stat Lab 04/25/24 11:48 Completed Magnesium Stat Lab 04/25/24 11:48 Completed TSH [Thyroid Stimulating Hormone] Stat Lab 04/25/24 11:48 Completed Trop I [Troponin I] Stat Lab 04/25/24 11:48 Completed Troponin I Q3H Lab 04/25/24 15:30 Ordered Troponin I Q3H Lab 04/25/24 18:30 Ordered ECG Data Tracing #1: I reviewed this ECG and interpreted as documented below: Ventricular to 160 no MI intervals noted RR intervals seem to be maintained with some slight irregularities this is a supraventricular tachycardia most likely AVNRT versus atrial fibrillation no acute ischemic changes noted Medical Decision Narrative: 49-year-old female with above history and physical who presents today with a supraventricular tachycardia heart rate around 1 61-65 which appears regular. She was going to be treated as AVNRT with adenosine after Valsalva maneuvers did not work and then as we are about to push the medication she was having a chest x-ray performed and she took a deep inspiration and spontaneously converted. Will keep an eye on her for several hours of observation check electrolytes and basic workup otherwise no further medical intervention will be needed. After several hours of observation patient remains very stable asymptomatic and in normal sinus rhythm no severe or significant electrolyte abnormality she is mildly hyperkalemic but will closely follow-up with primary care doctor she knows about her chronic kidney disease creatinine today is 2.1 which is near her baseline. No evidence of ischemia or other significant lecture light abnormalities that would have caused today's event. She has cardiology follow- up and she may follow-up with him if she would like but no other emergent medical intervention is needed at the moment she is already on a beta-pablo and is closely followed by cardiology. Return precautions emphasized she was discharged improved and stable condition. Procedures Miscellaneous Procedure Procedure Performed: Cardioversion Indication AVNRT/SVT Patient was placed on pads and IV was placed reversible medications and code cart at the bedside we were about to push 6 of adenosine when patient had a chest x-ray that was performed and she took a big deep breath and spontaneously converted. No further medication were needed as she converted secondary to deep inspiration with a chest x-ray. Follow-up twelve-lead performed to confirmed normal sinus rhythm. Critical Care Critical Care Time Critical Care Time: Yes Attestation: On 04/25/24, the high probability of a clinically significant, sudden or life threatening deterioration of the following system(s) required my full and direct attention, intervention and personal management. The time I documented below is in addition to time spent performing reported procedures but includes the following listed in this critical care notation. Total Time Total Critical Care Time: 35
--- NOTE | 2024-04-25 12:37 | PC.NURSE ---
1234- pt converted to NSR while holding breath for chest x-ray. Will continue to monitor.
[2024-04-25 12:42] LABS: Albumin Level 4.1 g/dl (3.5-5.0); Chloride 108 mmol/L (98-107); Sodium 137 mmol/L (136-145)
--- NOTE | 2024-04-25 12:42 | ECG_ITS ---
APPROVED REPORT Exam: Resting ECG HR:85 bpm ECG Measurements Heart Rate 85 AXES VA 155 P 149 QRSd 96 QRS -29 QT 347 T 150 QTc 389 Conclusion ECTOPIC ATRIAL RHYTHM BORDERLINE LEFT AXIS DEVIATION [QRS AXIS < -20] INCOMPLETE RIGHT BUNDLE BRANCH BLOCK [90+ ms QRS DURATION, TERMINAL R IN V1/V2, 40+ ms S IN I/aVL/V4/V5/V6] VOLTAGE CRITERIA FOR LVH [MEETS CRITERIA IN ONE OF: R(aVL), S(V1), R(V5), R(V5/V6)+S(V1)] MODERATE T-WAVE ABNORMALITY, CONSIDER LATERAL ISCHEMIA [-0.1+ mV T-WAVE IN I/aVL/V5/V6] ABNORMAL ECG UNCONFIRMED REPORT Electronically signed by : Alexander Lam, 04/25/2024 15:32:24
[2024-04-25 12:43] LABS: Potassium 5.5 mmoL/L (3.5-5.1)
[2024-04-25 12:45] LABS: Alanine Aminotransferase 28 U/L (12-78); Albumin/Globulin Ratio 1.3 (1.1-1.8); Alkaline Phosphatase 149 U/L (38-126); Anion Gap 13.5 mEq/L (5-15); Aspartate Amino Transferase 35 U/L (14-36); Bilirubin,Total 0.5 mg/dl (0.2-1.3); Blood Urea Nitrogen 37 mg/dl (7-17); Carbon Dioxide 21 mmol/L (22.0-30.0); Creatinine Clearance Estimated 37 mL/min (50-200); Estimated Glomerular Filt Rate 25 ml/min (>60); GFR (African American) 30 ML/MIN (>60); Globulin 3.1 g/dL (1.3-3.2); Total Protein,Serum 7.2 g/dl (6.3-8.2)
[2024-04-25 12:46] LABS: Calcium 9.5 mg/dl (8.4-10.2); Glucose 268 mg/dl (74-100); Magnesium 2.3 mg/dl (1.6-2.3)
--- NOTE | 2024-04-25 12:49 | ECG_ITS ---
APPROVED REPORT Exam: Resting ECG HR:83 bpm ECG Measurements Heart Rate 83 AXES MD 134 P 61 QRSd 97 QRS -47 QT 363 T 57 QTc 403 Conclusion SINUS RHYTHM PATTERN CONSISTENT WITH PULMONARY DISEASE INCOMPLETE RIGHT BUNDLE BRANCH BLOCK [90+ ms QRS DURATION, TERMINAL R IN V1/V2, 40+ ms S IN I/aVL/V4/V5/V6] LEFT ANTERIOR FASCICULAR BLOCK [QRS AXIS <= -45, QR IN I, RS IN II] MODERATE VOLTAGE CRITERIA FOR LVH, CONSIDER NORMAL VARIANT [MEETS CRITERIA IN ONE OF: R(aVL), S(V1), R(V5), R(V5/V6)+S(V1)] ABNORMAL ECG UNCONFIRMED REPORT Electronically signed by : Alexander Lam, 04/25/2024 15:32:18
[2024-04-25 13:01] LABS: Troponin I < 0.01 ng/ml (0.00-0.034)
[2024-04-25 13:15] LABS: Thyroid Stimulating Hormone 1.48 uIU/mL (0.465-4.68)
== END 2024-04-25 13:45 | disposition home or self-care (01) ==
PROVIDERS: Emergency Provider Student in an Organized Health Care Education/Training Program; PCP Internal Medicine
DX: I47.10 Supraventricular tachycardia, unspecified (principal); R06.02 Shortness of breath; R42 Dizziness and giddiness; H53.149 Visual discomfort, unspecified
CPT/HCPCS: 71045; 80050; 80053; 83735; 84443; 84484; 85025; 93005; 99284

== ENCOUNTER 2024-04-29 11:22 | Emergency (ER) | payer MEDICAID, SELFPAY ==
[2024-04-29 12:40] VITALS: BP 156/90; PULSE 70; RESP 18; TEMP 36.8; O2SAT 99; BMI 30.9
--- NOTE | 2024-04-29 13:32 | EXP.UTC ---
Discharge Plan Disposition Patient Disposition: Home, Self-Care Condition: Good Prescriptions Prescriptions: New guaifenesin 400 mg tablet 400 mg PO Q4H PRN (Reason: cough) Qty: 30 0RF No Action (DME) OneTouch Verio test strips Strip See Rx Instructions .ROUTE .MEDSUPPLY Qty: 10 Rx Instructions: As directed (DME) pen needle, diabetic [BD Ultra-Fine Mini Pen Needle] 31 gauge x 3/16 needle See Rx Instructions .ROUTE .MEDSUPPLY Qty: 50 Rx Instructions: As directed losartan 25 mg tablet 25 mg PO DAILY cholecalciferol (vitamin D3) 50 mcg (2,000 unit) capsule 2,000 unit PO DAILY Qty: 30 0RF quetiapine [Seroquel] 200 mg tablet 200 mg PO HS Qty: 30 2RF lamotrigine 100 mg tablet 150 mg PO BID Qty: 60 2RF (DME) blood-glucose meter,continuous 1 EACH misc See Rx Instructions MISCELLANE .MEDSUPPLY Rx Instructions: As directed calcium carbonate 500 MG tablet 500 mg PO DAILY carvedilol 3.125 mg tablet 12.5 mg PO DAILY Rx Instructions: TAKE ONE TABLET BY MOUTH 2 TIMES A DAY WITH FOOD atorvastatin 20 mg tablet 20 mg PO DAILY Rx Instructions: TAKE ONE TABLET BY MOUTH ONCE A DAY famotidine 20 mg tablet 20 mg PO DAILY Rx Instructions: TAKE ONE TABLET BY MOUTH ONCE A DAY omeprazole 20 mg capsule,delayed release(DR/EC) 20 mg PO DAILY Referrals Follow up/Referrals: Raad Paula DO [Primary Care Provider] - See instructions Activity Restrictions/Add. Instructions Additional Instructions/Restrictions: Take medication as prescribed. Increase fluids and rest. If symptoms persist or worsen, follow up with PCP. Clinical Impressions Clinical Impression: Cough Qualifiers: Cough type: acute Qualified Code(s): R05.1 - Acute cough Instructions Patient Instructions: Cough Print Language Print Language: Haitian Discharge ED Provider: Haley Olivares [facility] General Stated complaint: congested, cough Mode of Arrival: Ambulatory Source of Information: Patient Limitations: No Limitations Time Seen by Provider: 04/29/24 13:31 Description of Symptoms (Recalled from Triage Doc. by RN): PATIENT C/O PRODUCTIVE COUGH AND CONGESTION HEENT Symptoms (Recalled from RN notes): Yes Resp Symptoms (Recalled from RN notes): Yes Skin Symptoms (Recalled from RN notes): No MS Symptoms (Recalled from RN notes): No Functional Status (Recalled from RN notes): WNL History of Present Illness Provider Complaint: Pt reports that she woke up this morning with cough and congestion. Related Data Home Medications ?Medication ?Instructions ?Recorded ?Confirmed blood sugar diagnostic (OneTouch #10 ea 01/22/21 04/29/24 Verio test strips) pen needle, diabetic 31 gauge x #50 ea 04/09/21 04/29/2407/10 (BD Ultra-Fine Mini Pen Needle) blood-glucose meter,continuous 07/15/21 04/29/24 calcium carbonate 500 mg PO DAILY Supplement 07/15/21 04/29/24 losartan 25 mg tablet 25 mg PO DAILY 08/05/23 04/29/24 atorvastatin 20 mg tablet 20 mg PO DAILY 03/08/24 04/29/24 carvedilol 3.125 mg tablet 12.5 mg PO DAILY 03/08/24 04/29/24 famotidine 20 mg tablet 20 mg PO DAILY 03/08/24 04/29/24 omeprazole 20 mg capsule,delayed 20 mg PO DAILY 04/29/24 04/29/24 release Previous Rx's ?Medication ?Instructions ?Recorded cholecalciferol (vitamin D3) 50 2,000 unit PO DAILY Supplement #30 11/19/23 mcg (2,000 unit) capsule caps quetiapine 200 mg tablet (Seroquel) 200 mg PO HS Anxiety #30 tabs 02/23/24 lamotrigine 100 mg tablet 150 mg (1.5 x 100 mg) PO BID MOOD 02/29/24 #60 tabs guaifenesin 400 mg tablet 400 mg PO Q4H PRN cough #30 tabs 04/29/24 Allergies Allergy/AdvReac Type Severity Reaction Status Date / Time fish oil (FISH OIL) Allergy Mild Hives Verified 04/25/24 11:57 prednisolone Allergy Mild Other Verified 04/25/24 11:57 Worker's Comp Is this a Worker's Comp case?: No [facility] Disclaimer: The information contained in this section may have been updated after the patient was seen, as this information can be updated by other users. Medical History Chronic kidney disease History of back pain History of cataract Edema Encounter for pre-operative cardiovascular clearance Renal disease Hydradenitis Bilateral carpal tunnel syndrome Bipolar II disorder GERD (gastroesophageal reflux disease) Patient is on omeprasole and I have encouraged her to continue. Lymphedema CAD (coronary artery disease) COPD (chronic obstructive pulmonary disease) Dyspnea Tobacco abuse HTN (hypertension) Diastolic dysfunction Subungual hematoma of great toe of left foot Candidiasis, intertrigo Subungual hematoma of fifth toe of left foot Back Pain Osteoarthritis Leg swelling Memory Loss Neck pain Vitamin D deficiency (~06/29/17) Hyperlipidemia (~06/29/17) Diabetes mellitus Type 2 diabetes mellitus Surgical History H/O gastric sleeve History of ankle surgery RIGHT ANKLE SX - SCREWS History of incision and drainage History of bilateral carpal tunnel release History of section Family History Mother Diabetes Father Diabetes Lymphoma Social History Smoking Status: Current every day smoker smoking status stop date: 1 year ago quit status: considering quitting second hand exposure: No alcohol intake: never substance use type: denies use current occupational status: disabled Travel in the last 8 weeks: None adopted: No caregiver/support person: No foster care: No household members: spouse housing: apartment lives independently: Yes marital status: number of children: 1 number of grandchildren: 0 education level: high school service: No care home: No current occupational exposures/hazards: No Hx Recent Travel: No sexually active: No caffeine: Yes physical activity: none 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 needs: No working smoke detector in home: Yes fire extinguisher in home: No carbon monox detector in home: No firearms in home: No do you feel safe at home: Yes Have you lived/traveled outside US in past 30 days?: No Contact w/someone who lives/traveled outside US past 30 days?: No Exposure to someone with infectious disease in past 14 days?: No Do you have a fever (greater than 100.4 F or 38 C)?: No Have you tested positive for COVID-19: No Exposed to someone with COVID-19 in past 14 days?: No Do you have a sore throat?: No Do you have a cough?: Yes Do you have any weakness?: No Do you have any diarrhea?: No Are you experiencing any unusual bleeding?: No Do you have any muscle aches/pain?: No Do you have any abdominal pain?: No Are you experiencing loss of taste or smell?: No ROS Obtained: Yes All systems reviewed & no additional complaints except as documented Constitutional Constitutional: Reports system reviewed and no additional complaints, except as documented Eyes Eyes: Reports system reviewed and no additional complaints, except as documented ENT Ears, Nose, Mouth, and Throat: Reports system reviewed and no additional complaints, except as documented and Reports nasal congestion Cardiovascular Cardiovascular: Reports system reviewed and no additional complaints, except as documented Respiratory Respiratory: Reports system reviewed and no additional complaints, except as documented and Reports non-productive cough Gastrointestinal Gastrointestingal: Reports system reviewed and no additional complaints, except as documented Genitourinary Female Genitourinary: Reports system reviewed and no additional complaints, except as documented Musculoskeletal Musculoskeletal: Reports system reviewed and no additional complaints, except as documented Integumentary/Breasts Skin/Breast: Reports system reviewed and no additional complaints, except as documented Neurologic Neurologic: Reports system reviewed and no additional complaints, except as documented Endocrine Endocrine: Reports system reviewed and no additional complaints, except as documented Hematologic/Lymphatic Henatologic/Lymphatic: Reports system reviewed and no additional complaints, except as documented Allergic/Immunologic Allergic/Immunologic: Reports system reviewed and no additional complaints, except as documented Physical Exam General General appearance: alert and in no apparent distress Head Head exam: atraumatic and normocephalic Eye Eye exam: Present normal appearance ENT ENT exam: Present mucous membranes moist Expanded ENT Exam External ear exam: Present normal external inspection Nasal speculum exam: Bilateral: normal Mouth exam: Present normal external inspection Teeth exam: Present normal inspection Throat exam: Present normal inspection Neck Neck exam: Present normal inspection; Absent lymphadenopathy Chest Chest inspection: Present normal inspection and symmetric chest wall rise Respiratory Respiratory exam: Present normal lung sounds bilaterally Cardiovascular Cardiovascular exam: Present regular rate and normal rhythm Abdominal Exam Abdominal exam: Present soft Extremities Exam Extremities exam: Present normal inspection Back Exam Back exam: Present normal inspection Neurological Exam Neurological exam: Present alert and oriented X3 Psychiatric Psychiatric exam: Present normal affect and normal mood Skin Skin exam: Present warm, dry and intact Lymphatic Lymphatic Findings: no adenopathy Medical Decision Making Medical Records Screening: Per USPSTF and CDC recommendations, given the prevalence of disease in our region, it is our hospital?s policy to screen for HIV and viral Hepatitis for all patients aged 18 and over and those with ongoing risk factors. Tyshawn Inquiry Pt receiving controlled substance: No Tyshawn was queried for this patient: No Vital Signs: 04/29/24 12:40 Temperature 98.3 F Temperature Source Oral Pulse Rate [Left Brachial] 70 Respiratory Rate 18 Blood Pressure [Left Arm] 156/90 H Blood Pressure Mean [Left Arm] 112 Blood Pressure Source [Left Arm] Automatic Cuff Blood Pressure Position [Left Arm] Sitting 02 Sat by Pulse Oximetry 99 Oxygen Delivery Method Room Air
[2024-04-29 13:40] VITALS: BP 156/90; PULSE 70; RESP 18; TEMP 36.8; O2SAT 99
--- NOTE | 2024-04-29 13:41 | EXP.UTC ---
Discharge Plan Disposition Patient Disposition: Home, Self-Care Condition: Good Prescriptions Prescriptions: New guaifenesin 400 mg tablet 400 mg PO Q4H PRN (Reason: cough) Qty: 30 0RF No Action (DME) OneTouch Verio test strips Strip See Rx Instructions .ROUTE .MEDSUPPLY Qty: 10 Rx Instructions: As directed (DME) pen needle, diabetic [BD Ultra-Fine Mini Pen Needle] 31 gauge x 3/16 needle See Rx Instructions .ROUTE .MEDSUPPLY Qty: 50 Rx Instructions: As directed losartan 25 mg tablet 25 mg PO DAILY cholecalciferol (vitamin D3) 50 mcg (2,000 unit) capsule 2,000 unit PO DAILY Qty: 30 0RF quetiapine [Seroquel] 200 mg tablet 200 mg PO HS Qty: 30 2RF lamotrigine 100 mg tablet 150 mg PO BID Qty: 60 2RF (DME) blood-glucose meter,continuous 1 EACH misc See Rx Instructions MISCELLANE .MEDSUPPLY Rx Instructions: As directed calcium carbonate 500 MG tablet 500 mg PO DAILY carvedilol 3.125 mg tablet 12.5 mg PO DAILY Rx Instructions: TAKE ONE TABLET BY MOUTH 2 TIMES A DAY WITH FOOD atorvastatin 20 mg tablet 20 mg PO DAILY Rx Instructions: TAKE ONE TABLET BY MOUTH ONCE A DAY famotidine 20 mg tablet 20 mg PO DAILY Rx Instructions: TAKE ONE TABLET BY MOUTH ONCE A DAY omeprazole 20 mg capsule,delayed release(DR/EC) 20 mg PO DAILY Referrals Follow up/Referrals: Raad Paula DO [Primary Care Provider] - See instructions Activity Restrictions/Add. Instructions Additional Instructions/Restrictions: Take medication as prescribed. Increase fluids and rest. If symptoms persist or worsen, follow up with PCP. Clinical Impressions Clinical Impression: Cough Qualifiers: Cough type: acute Qualified Code(s): R05.1 - Acute cough Instructions Patient Instructions: Cough Print Language Print Language: Uzbek Discharge ED Provider: Haley Olivares [facility] General Stated complaint: congested, cough Mode of Arrival: Ambulatory Source of Information: Patient Limitations: No Limitations Time Seen by Provider: 04/29/24 13:31 Description of Symptoms (Recalled from Triage Doc. by RN): PATIENT C/O PRODUCTIVE COUGH AND CONGESTION HEENT Symptoms (Recalled from RN notes): Yes Resp Symptoms (Recalled from RN notes): Yes Skin Symptoms (Recalled from RN notes): No MS Symptoms (Recalled from RN notes): No Functional Status (Recalled from RN notes): WNL History of Present Illness Provider Complaint: Pt relates that she woke up this morning with congestion and a cough. Related Data Home Medications ?Medication ?Instructions ?Recorded ?Confirmed blood sugar diagnostic (OneTouch #10 ea 01/22/21 04/29/24 Verio test strips) pen needle, diabetic 31 gauge x #50 ea 04/09/21 04/29/2407/10 (BD Ultra-Fine Mini Pen Needle) blood-glucose meter,continuous 07/15/21 04/29/24 calcium carbonate 500 mg PO DAILY Supplement 07/15/21 04/29/24 losartan 25 mg tablet 25 mg PO DAILY 08/05/23 04/29/24 atorvastatin 20 mg tablet 20 mg PO DAILY 03/08/24 04/29/24 carvedilol 3.125 mg tablet 12.5 mg PO DAILY 03/08/24 04/29/24 famotidine 20 mg tablet 20 mg PO DAILY 03/08/24 04/29/24 omeprazole 20 mg capsule,delayed 20 mg PO DAILY 04/29/24 04/29/24 release Previous Rx's ?Medication ?Instructions ?Recorded cholecalciferol (vitamin D3) 50 2,000 unit PO DAILY Supplement #30 11/19/23 mcg (2,000 unit) capsule caps quetiapine 200 mg tablet (Seroquel) 200 mg PO HS Anxiety #30 tabs 02/23/24 lamotrigine 100 mg tablet 150 mg (1.5 x 100 mg) PO BID MOOD 02/29/24 #60 tabs guaifenesin 400 mg tablet 400 mg PO Q4H PRN cough #30 tabs 04/29/24 Allergies Allergy/AdvReac Type Severity Reaction Status Date / Time fish oil (FISH OIL) Allergy Mild Hives Verified 04/25/24 11:57 prednisolone Allergy Mild Other Verified 04/25/24 11:57 Worker's Comp Is this a Worker's Comp case?: No [facility] Disclaimer: The information contained in this section may have been updated after the patient was seen, as this information can be updated by other users. Medical History Chronic kidney disease History of back pain History of cataract Edema Encounter for pre-operative cardiovascular clearance Renal disease Hydradenitis Bilateral carpal tunnel syndrome Bipolar II disorder GERD (gastroesophageal reflux disease) Patient is on omeprasole and I have encouraged her to continue. Lymphedema CAD (coronary artery disease) COPD (chronic obstructive pulmonary disease) Dyspnea Tobacco abuse HTN (hypertension) Diastolic dysfunction Subungual hematoma of great toe of left foot Candidiasis, intertrigo Subungual hematoma of fifth toe of left foot Back Pain Osteoarthritis Leg swelling Memory Loss Neck pain Vitamin D deficiency (~06/29/17) Hyperlipidemia (~06/29/17) Diabetes mellitus Type 2 diabetes mellitus Surgical History H/O gastric sleeve History of ankle surgery RIGHT ANKLE SX - SCREWS History of incision and drainage History of bilateral carpal tunnel release History of section Family History Mother Diabetes Father Diabetes Lymphoma Social History Smoking Status: Current every day smoker smoking status stop date: 1 year ago quit status: considering quitting second hand exposure: No alcohol intake: never substance use type: denies use current occupational status: disabled Travel in the last 8 weeks: None adopted: No caregiver/support person: No foster care: No household members: spouse housing: apartment lives independently: Yes marital status: number of children: 1 number of grandchildren: 0 education level: high school service: No skilled nursing: No current occupational exposures/hazards: No Hx Recent Travel: No sexually active: No caffeine: Yes physical activity: none phil/druze: [employer] special phil needs: No working smoke detector in home: Yes fire extinguisher in home: No carbon monox detector in home: No firearms in home: No do you feel safe at home: Yes ROS Obtained: Yes All systems reviewed & no additional complaints except as documented Constitutional Constitutional: Reports system reviewed and no additional complaints, except as documented Eyes Eyes: Reports system reviewed and no additional complaints, except as documented ENT Ears, Nose, Mouth, and Throat: Reports system reviewed and no additional complaints, except as documented and Reports nasal congestion Cardiovascular Cardiovascular: Reports system reviewed and no additional complaints, except as documented Respiratory Respiratory: Reports system reviewed and no additional complaints, except as documented and Reports non-productive cough Gastrointestinal Gastrointestingal: Reports system reviewed and no additional complaints, except as documented Genitourinary Female Genitourinary: Reports system reviewed and no additional complaints, except as documented Musculoskeletal Musculoskeletal: Reports system reviewed and no additional complaints, except as documented Integumentary/Breasts Skin/Breast: Reports system reviewed and no additional complaints, except as documented Neurologic Neurologic: Reports system reviewed and no additional complaints, except as documented Endocrine Endocrine: Reports system reviewed and no additional complaints, except as documented Hematologic/Lymphatic Henatologic/Lymphatic: Reports system reviewed and no additional complaints, except as documented Allergic/Immunologic Allergic/Immunologic: Reports system reviewed and no additional complaints, except as documented Physical Exam General General appearance: alert and in no apparent distress Head Head exam: atraumatic and normocephalic Eye Eye exam: Present normal appearance Expanded ENT Exam External ear exam: Present normal external inspection Nose exam: Absent sinus tenderness Nasal speculum exam: Bilateral: normal Mouth exam: Present normal external inspection Teeth exam: Present normal inspection Throat exam: Present normal inspection Neck Neck exam: Present normal inspection Chest Chest inspection: Present normal inspection and symmetric chest wall rise Respiratory Respiratory exam: Present normal lung sounds bilaterally Cardiovascular Cardiovascular exam: Present regular rate and normal rhythm Abdominal Exam Abdominal exam: Present soft Back Exam Back exam: Present normal inspection Neurological Exam Neurological exam: Present alert and oriented X3 Psychiatric Psychiatric exam: Present normal affect and normal mood Skin Skin exam: Present warm, dry and intact Lymphatic Lymphatic Findings: no adenopathy Medical Decision Making Medical Records Screening: Per USPSTF and CDC recommendations, given the prevalence of disease in our region, it is our hospital?s policy to screen for HIV and viral Hepatitis for all patients aged 18 and over and those with ongoing risk factors. Tyshawn Inquiry Pt receiving controlled substance: No Tyshawn was queried for this patient: No Vital Signs: 04/29/24 12:40 04/29/24 13:40 Temperature 98.3 F 98.3 F Temperature Source Oral Pulse Rate 70 Pulse Rate [Left Brachial] 70 Respiratory Rate 18 18 Blood Pressure 156/90 H Blood Pressure [Left Arm] 156/90 H Blood Pressure Mean [Left Arm] 112 Blood Pressure Source [Left Arm] Automatic Cuff Blood Pressure Position [Left Arm] Sitting 02 Sat by Pulse Oximetry 99 Oxygen Delivery Method Room Air
--- NOTE | 2024-04-29 13:44 | ED_ITS ---
Discharge Plan Disposition Patient Disposition: Home, Self-Care Condition: Good Prescriptions Prescriptions: New guaifenesin 400 mg tablet 400 mg PO Q4H PRN (Reason: cough) Qty: 30 0RF No Action (DME) OneTouch Verio test strips Strip See Rx Instructions .ROUTE .MEDSUPPLY Qty: 10 Rx Instructions: As directed (DME) pen needle, diabetic [BD Ultra-Fine Mini Pen Needle] 31 gauge x 3/16 needle See Rx Instructions .ROUTE .MEDSUPPLY Qty: 50 Rx Instructions: As directed losartan 25 mg tablet 25 mg PO DAILY cholecalciferol (vitamin D3) 50 mcg (2,000 unit) capsule 2,000 unit PO DAILY Qty: 30 0RF quetiapine [Seroquel] 200 mg tablet 200 mg PO HS Qty: 30 2RF lamotrigine 100 mg tablet 150 mg PO BID Qty: 60 2RF (DME) blood-glucose meter,continuous 1 EACH misc See Rx Instructions MISCELLANE .MEDSUPPLY Rx Instructions: As directed calcium carbonate 500 MG tablet 500 mg PO DAILY carvedilol 3.125 mg tablet 12.5 mg PO DAILY Rx Instructions: TAKE ONE TABLET BY MOUTH 2 TIMES A DAY WITH FOOD atorvastatin 20 mg tablet 20 mg PO DAILY Rx Instructions: TAKE ONE TABLET BY MOUTH ONCE A DAY famotidine 20 mg tablet 20 mg PO DAILY Rx Instructions: TAKE ONE TABLET BY MOUTH ONCE A DAY omeprazole 20 mg capsule,delayed release(DR/EC) 20 mg PO DAILY Referrals Follow up/Referrals: Raad Paula DO [Primary Care Provider] - See instructions Activity Restrictions/Add. Instructions Additional Instructions/Restrictions: Take medication as prescribed. Increase fluids and rest. If symptoms persist or worsen, follow up with PCP. Clinical Impressions Clinical Impression: Cough Qualifiers: Cough type: acute Qualified Code(s): R05.1 - Acute cough Instructions Patient Instructions: Cough Print Language Print Language: Malian Discharge ED Provider: Haley Olivares [facility] General Stated complaint: congested, cough Mode of Arrival: Ambulatory Source of Information: Patient Limitations: No Limitations Time Seen by Provider: 04/29/24 13:31 Description of Symptoms (Recalled from Triage Doc. by RN): PATIENT C/O PRODUCTIVE COUGH AND CONGESTION HEENT Symptoms (Recalled from RN notes): Yes Resp Symptoms (Recalled from RN notes): Yes Skin Symptoms (Recalled from RN notes): No MS Symptoms (Recalled from RN notes): No Functional Status (Recalled from RN notes): WNL History of Present Illness Provider Complaint: Pt reports that she started with congestion and coughing this morning. Related Data Home Medications ?Medication ?Instructions ?Recorded ?Confirmed blood sugar diagnostic (OneTouch #10 ea 01/22/21 04/29/24 Verio test strips) pen needle, diabetic 31 gauge x #50 ea 04/09/21 04/29/2407/10 (BD Ultra-Fine Mini Pen Needle) blood-glucose meter,continuous 07/15/21 04/29/24 calcium carbonate 500 mg PO DAILY Supplement 07/15/21 04/29/24 losartan 25 mg tablet 25 mg PO DAILY 08/05/23 04/29/24 atorvastatin 20 mg tablet 20 mg PO DAILY 03/08/24 04/29/24 carvedilol 3.125 mg tablet 12.5 mg PO DAILY 03/08/24 04/29/24 famotidine 20 mg tablet 20 mg PO DAILY 03/08/24 04/29/24 omeprazole 20 mg capsule,delayed 20 mg PO DAILY 04/29/24 04/29/24 release Previous Rx's ?Medication ?Instructions ?Recorded cholecalciferol (vitamin D3) 50 2,000 unit PO DAILY Supplement #30 11/19/23 mcg (2,000 unit) capsule caps quetiapine 200 mg tablet (Seroquel) 200 mg PO HS Anxiety #30 tabs 02/23/24 lamotrigine 100 mg tablet 150 mg (1.5 x 100 mg) PO BID MOOD 02/29/24 #60 tabs guaifenesin 400 mg tablet 400 mg PO Q4H PRN cough #30 tabs 04/29/24 Allergies Allergy/AdvReac Type Severity Reaction Status Date / Time fish oil (FISH OIL) Allergy Mild Hives Verified 04/25/24 11:57 prednisolone Allergy Mild Other Verified 04/25/24 11:57 Worker's Comp Is this a Worker's Comp case?: No [facility] Disclaimer: The information contained in this section may have been updated after the patient was seen, as this information can be updated by other users. Medical History Chronic kidney disease History of back pain History of cataract Edema Encounter for pre-operative cardiovascular clearance Renal disease Hydradenitis Bilateral carpal tunnel syndrome Bipolar II disorder GERD (gastroesophageal reflux disease) Patient is on omeprasole and I have encouraged her to continue. Lymphedema CAD (coronary artery disease) COPD (chronic obstructive pulmonary disease) Dyspnea Tobacco abuse HTN (hypertension) Diastolic dysfunction Subungual hematoma of great toe of left foot Candidiasis, intertrigo Subungual hematoma of fifth toe of left foot Back Pain Osteoarthritis Leg swelling Memory Loss Neck pain Vitamin D deficiency (~06/29/17) Hyperlipidemia (~06/29/17) Diabetes mellitus Type 2 diabetes mellitus Surgical History H/O gastric sleeve History of ankle surgery RIGHT ANKLE SX - SCREWS History of incision and drainage History of bilateral carpal tunnel release History of section Family History Mother Diabetes Father Diabetes Lymphoma Social History Smoking Status: Current every day smoker smoking status stop date: 1 year ago quit status: considering quitting second hand exposure: No alcohol intake: never substance use type: denies use current occupational status: disabled Travel in the last 8 weeks: None adopted: No caregiver/support person: No foster care: No household members: spouse housing: apartment lives independently: Yes marital status: number of children: 1 number of grandchildren: 0 education level: high school service: No snf: No current occupational exposures/hazards: No Hx Recent Travel: No sexually active: No caffeine: Yes physical activity: none phil/mormonism: [employer] special phil needs: No working smoke detector in home: Yes fire extinguisher in home: No carbon monox detector in home: No firearms in home: No do you feel safe at home: Yes ROS Obtained: Yes All systems reviewed & no additional complaints except as documented Constitutional Constitutional: Reports system reviewed and no additional complaints, except as documented Eyes Eyes: Reports system reviewed and no additional complaints, except as documented ENT Ears, Nose, Mouth, and Throat: Reports system reviewed and no additional complaints, except as documented and Reports nasal congestion Cardiovascular Cardiovascular: Reports system reviewed and no additional complaints, except as documented Respiratory Respiratory: Reports system reviewed and no additional complaints, except as documented and Reports non-productive cough Gastrointestinal Gastrointestingal: Reports system reviewed and no additional complaints, except as documented Genitourinary Female Genitourinary: Reports system reviewed and no additional complaints, except as documented Musculoskeletal Musculoskeletal: Reports system reviewed and no additional complaints, except as documented Integumentary/Breasts Skin/Breast: Reports system reviewed and no additional complaints, except as documented Neurologic Neurologic: Reports system reviewed and no additional complaints, except as documented Endocrine Endocrine: Reports system reviewed and no additional complaints, except as documented Hematologic/Lymphatic Henatologic/Lymphatic: Reports system reviewed and no additional complaints, except as documented Allergic/Immunologic Allergic/Immunologic: Reports system reviewed and no additional complaints, except as documented Physical Exam General General appearance: alert and in no apparent distress Head Head exam: atraumatic and normocephalic Eye Eye exam: Present normal appearance ENT ENT exam: Present mucous membranes moist Expanded ENT Exam External ear exam: Present normal external inspection Nasal speculum exam: Bilateral: normal Mouth exam: Present normal external inspection Teeth exam: Present normal inspection Throat exam: Present normal inspection Neck Neck exam: Present normal inspection; Absent lymphadenopathy Chest Chest inspection: Present normal inspection and symmetric chest wall rise Respiratory Respiratory exam: Present normal lung sounds bilaterally Cardiovascular Cardiovascular exam: Present regular rate and normal rhythm Abdominal Exam Abdominal exam: Present soft and normal bowel sounds Extremities Exam Extremities exam: Present normal inspection Back Exam Back exam: Present normal inspection Neurological Exam Neurological exam: Present alert and oriented X3 Psychiatric Psychiatric exam: Present normal affect and normal mood Skin Skin exam: Present warm, dry and intact Lymphatic Lymphatic Findings: no adenopathy Medical Decision Making Medical Records Screening: Per USPSTF and CDC recommendations, given the prevalence of disease in our region, it is our hospital?s policy to screen for HIV and viral Hepatitis for all patients aged 18 and over and those with ongoing risk factors. Tyshawn Inquiry Pt receiving controlled substance: No Tyshawn was queried for this patient: No Vital Signs: 04/29/24 12:40 04/29/24 13:40 Temperature 98.3 F 98.3 F Temperature Source Oral Pulse Rate 70 Pulse Rate [Left Brachial] 70 Respiratory Rate 18 18 Blood Pressure 156/90 H Blood Pressure [Left Arm] 156/90 H Blood Pressure Mean [Left Arm] 112 Blood Pressure Source [Left Arm] Automatic Cuff Blood Pressure Position [Left Arm] Sitting 02 Sat by Pulse Oximetry 99 Oxygen Delivery Method Room Air
== END 2024-04-29 13:43 | disposition home or self-care (01) ==
PROVIDERS: Emergency Provider Nurse Practitioner Family; PCP Internal Medicine
DX: R05.1 Acute cough (principal)
CPT/HCPCS: 99213; G0381

== ENCOUNTER 2024-05-13 06:08 | Day surgery (SDC) | payer MEDICAID, SELFPAY ==
[2024-05-11 11:09] VITALS: BMI 27.1
[2024-05-13 06:32] VITALS: BP 154/73; PULSE 79; RESP 18; TEMP 36.2; O2SAT 100
[2024-05-13] MEDS: LACTATED RINGERS 1000ML 1,000 ML 25 ML IV (06:42)
[2024-05-13 06:46] LABS: POC Glucose,Bedside 125 (70-110)
--- NOTE | 2024-05-13 07:04 | [facility].SCOPE ---
Procedure: Date: 05/13/24 Patient Date of :: 1975 Procedure Performed:: Aborted colonoscopy Indications:: Patient is a 49-year-old female with stage IV chronic end-stage renal disease who has been undergoing evaluation for possible renal transplant. She had been scheduled for screening colonoscopy which I performed on 12/05/2022. She had a total of 5 tubular adenomas several of which were complex removed at that time. Most notable polyp was flat sessile adenomatous polyp at the splenic flexure removed using hot snare and retrieval with Doyle net after maceration. She had a poor to fair preparation. Recommendations were for follow-up colonoscopy in 6 to 12 months. Patient states that she has subsequently undergone sleeve gastrectomy and has lost about 90 pounds. She underwent prep with MiraLAX and Dulcolax. . Performing Provider:: Jong Rasmussen MD Referring Provider:: Raad Paula MD . Sedation:: MAC sedation Procedure:: Patient history was obtained and appropriate physical examination was performed. Patient's medications and allergies were reviewed. Informed consent was obtained after explaining the benefits, alternatives, and risks of the procedure including, but not limited to, bleeding, perforation, missed lesions, and adverse reaction to anesthesia medications. Patient was transported to endoscopy procedure room. Patient was connected to monitoring devices. Throughout the procedure the patient's blood pressure, pulse, and oxygen saturations were monitored continuously. Patient identification and planned procedure were verified by the staff. Patient was positioned in lateral decubitus position. Digital anorectal exam was performed. There was particulate stool on digital examination. Variable stiffness Olympus colonoscope was inserted. Within the rectum there was opaque particulate stool. High-volume trans colonoscopic irrigation and suctioning was performed. Colonoscope was advanced to the distal sigmoid. There was a large amount of stool present. High-volume trans colonoscopic irrigation and suctioning was performed as the colonoscope was advanced to approximately 30 to 40 cm. Visualization was extremely poor and the colon could not be cleared. Colonoscope was withdrawn. Findings:: Poor prep Lack of visualization Recommendations:: Reschedule colonoscopy with multi day maximum prep Complications:: None immediately apparent Estimated blood obtained (mL): 0 Colonoscopy Component Colonoscopy Component Was a colonoscopy performed during today's procedure?: No
[2024-05-13 07:13] VITALS: O2SAT 100
--- NOTE | 2024-05-13 07:13 | EXP.ANES.CKL ---
[facility] Disclaimer: The information contained in this section may have been updated after the patient was seen, as this information can be updated by other users. Medical History (Updated 05/13/24 @ 06:41 by Shaye Andrea RN) SVT (supraventricular tachycardia) Chronic kidney disease History of back pain History of cataract Edema Encounter for pre-operative cardiovascular clearance Renal disease Hydradenitis Bilateral carpal tunnel syndrome Bipolar II disorder GERD (gastroesophageal reflux disease) Lymphedema CAD (coronary artery disease) COPD (chronic obstructive pulmonary disease) Dyspnea Tobacco abuse HTN (hypertension) Diastolic dysfunction Subungual hematoma of great toe of left foot Candidiasis, intertrigo Subungual hematoma of fifth toe of left foot Back Pain Osteoarthritis Leg swelling Memory Loss Neck pain Vitamin D deficiency (~06/29/17) Hyperlipidemia (~06/29/17) Diabetes mellitus Type 2 diabetes mellitus Surgical History H/O gastric sleeve History of ankle surgery History of incision and drainage History of bilateral carpal tunnel release History of section Family History Mother Diabetes Father Diabetes Lymphoma Social History (Updated 05/13/24 @ 06:33 by Shaye Andrea RN) Smoking Status: Current every day smoker smoking status stop date: 1 year ago quit status: considering quitting second hand exposure: No alcohol intake: never substance use type: denies use current occupational status: disabled Travel in the last 8 weeks: None adopted: No caregiver/support person: No foster care: No household members: spouse housing: apartment lives independently: Yes marital status: number of children: 1 number of grandchildren: 0 education level: high school service: No longterm: No current occupational exposures/hazards: No Hx Recent Travel: No sexually active: No caffeine: No physical activity: none phil/yarsani: Hinduism special phil needs: No working smoke detector in home: Yes fire extinguisher in home: No carbon monox detector in home: No firearms in home: No do you feel safe at home: Yes Have you lived/traveled outside US in past 30 days?: No Contact w/someone who lives/traveled outside US past 30 days?: No Exposure to someone with infectious disease in past 14 days?: No Do you have a fever (greater than 100.4 F or 38 C)?: No Have you tested positive for COVID-19: No Exposed to someone with COVID-19 in past 14 days?: No Do you have a sore throat?: No Do you have a cough?: No Do you have any weakness?: No Are you experiencing any nausea/vomitting?: No Do you have any diarrhea?: No Are you experiencing any unusual bleeding?: No Do you have any muscle aches/pain?: No Do you have any abdominal pain?: No Are you experiencing loss of taste or smell?: No [facility] Anesthesia Checklist Patient Identification Patient Identification: Arm Band Structural Data Admitted From: Home Planned Operative Procedure/s: Colonoscopy Consent for Planned Operative Procedure(s) Verified: Yes Verified Documents: Surgical Consent and History and Physical NPO Status Verified Time NPO: 00:00 Additional verifications Anesthesia Reactions: No Hx Blood Transfusions: No Blood Transfusion Reaction: No Airway Assessment Mallampati Score:: Class II C-Spine Mobility Assessed: Yes TMJ Mobility Assessed: Yes Neurological Assessment Level of Consciousness: Awake, Alert and Appropriate Anesthesia Plan Anesthesia Risk discussed: Yes Anesthesia Plan: Verified ASA Class: III Anesthesia Type: MAC
[2024-05-13 07:34] VITALS: BP 143/78; PULSE 70; RESP 16; TEMP 36.3; O2SAT 99
[2024-05-13 07:44] VITALS: BP 137/83; PULSE 72; RESP 16; O2SAT 100
[2024-05-13 07:54] VITALS: BP 142/92; PULSE 73; RESP 16; O2SAT 100
[2024-05-13 08:04] VITALS: BP 144/72; PULSE 75; RESP 16; O2SAT 100
== END 2024-05-13 08:04 | disposition home or self-care (01) ==
PROVIDERS: PCP Internal Medicine; Visit Provider Surgery
PROC: 0DJD8ZZ Inspection of Lower Intestinal Tract, Via Natural or Artificial Opening Endoscopic (ICD-10-PCS; CPT 45378; principal; 2024-05-13 07:30)
DX: Z09 Encounter for follow-up examination after completed treatment for conditions other than malignant neoplasm (principal); Z86.0101 Personal history of adenomatous and serrated colon polyps; Z53.8 Procedure and treatment not carried out for other reasons
CPT/HCPCS: 45378; 82962; J7120

== ENCOUNTER 2024-05-17 14:02 | Outpatient (CLI) | payer MEDICAID, SELFPAY ==
[2024-05-17 14:34] LABS: Hematocrit 35.6 % (37.0-47.0); Hemoglobin 11.5 g/dL (12.2-16.2); Mean Corpuscular HGB Conc 32.3 g/dL (31.8-35.4); Mean Corpuscular Hemoglobin 29.9 pg (27.0-31.2); Mean Corpuscular Volume 92.5 fl (81-99); Platelet Count 218 K/mm3 (142-424); Red Blood Count 3.85 M/mm3 (4.20-5.40); Red Cell Distribution Width 13.5 % (11.5-17.5); White Blood Count 9.2 K/mm3 (4.8-10.8)
[2024-05-17 14:46] LABS: Creatinine,Urine Random 107 mg/dL (Not Estab.)
[2024-05-17 14:51] LABS: Albumin Level 4.1 g/dl (3.5-5.0); Anion Gap 14.5 mEq/L (5-15); Blood Urea Nitrogen 41 mg/dl (7-17); Calcium 9.2 mg/dl (8.4-10.2); Carbon Dioxide 23 mmol/L (22.0-30.0); Chloride 109 mmol/L (98-107); Estimated Glomerular Filt Rate 21 ml/min (>60); GFR (African American) 26 ML/MIN (>60); Glucose 145 mg/dl (74-100); Potassium 4.5 mmoL/L (3.5-5.1); Sodium 142 mmol/L (136-145)
[2024-05-17 15:03] LABS: Intact Parathyroid Hormone 74.2 pg/mL (7.5-53.5)
[2024-05-17 15:09] LABS: 25-OH Vitamin D, Total 60.9 ng/mL (30-100)
[2024-05-17 15:49] LABS: Total Iron Binding Capacity 282 ug/dL (265-497)
[2024-05-17 16:23] LABS: Ferritin 91.1 ng/ml (6.24-137)
[2024-05-17 16:24] LABS: Iron 83 ug/dL (37-170)
== END 2024-05-17 23:59 | disposition home or self-care (01) ==
LOC: LAB 14:03
PROVIDERS: PCP Internal Medicine; Visit Provider Internal Medicine Nephrology
DX: N18.4 Chronic kidney disease, stage 4 (severe) (principal)
CPT/HCPCS: 36415; 80069; 82306; 82570; 82728; 83540; 83550; 83970; 84156; 85027

== ENCOUNTER 2024-05-24 14:57 | Outpatient (CLI) | payer MEDICAID, SELFPAY ==
--- NOTE | 2024-05-24 15:00 | XR_ITS ---
FINAL REPORT CLINICAL HISTORY: new pain Pt w diabetes FINDINGS: Right foot Two views were obtained. There is no fracture or dislocation. The joint spaces appear normal. There are 2 orthopedic screws in the medial malleolus. Small plantar spur is identified. IMPRESSION: No acute process. Reviewed, Interpreted and Dictated by Aj Quiroz MD Transcribed by Lynne Torres Authenticated and [facility]
== END 2024-05-24 23:59 | disposition home or self-care (01) ==
LOC: RAD 14:58
PROVIDERS: PCP Internal Medicine; Visit Provider Internal Medicine
DX: M79.671 Pain in right foot (principal)
CPT/HCPCS: 73620

== ENCOUNTER 2024-06-02 10:05 | Outpatient (CLI) | payer MEDICAID, SELFPAY ==
[2024-06-02 10:51] LABS: Basophils # 0.1 K/mm3 (0-0.2); Basophils % 0.7 % (0.1-2.0); Eosinophils # 0.3 K/mm3 (0.0-0.4); Eosinophils % 3.8 % (0.1-12.0); Hematocrit 36.7 % (37.0-47.0); Hemoglobin 11.9 g/dL (12.2-16.2); Lymphocytes # 1.7 K/mm3 (0.7-4.5); Lymphocytes % 18.9 % (10-50); Mean Corpuscular HGB Conc 32.4 g/dL (31.8-35.4); Mean Corpuscular Hemoglobin 29.8 pg (27.0-31.2); Monocytes # 0.4 K/mm3 (0.1-1.0); Monocytes % 4.8 % (1.7-9.3); Neutrophils # 6.4 K/mm3 (1.8-7.8); Neutrophils % 71.6 % (37.0-80.0); Platelet Count 172 K/mm3 (142-424); Red Blood Count 3.99 M/mm3 (4.20-5.40); Red Cell Distribution Width 13.4 % (11.5-17.5)
[2024-06-02 11:02] LABS: Potassium 4.8 mmoL/L (3.5-5.1)
[2024-06-02 11:04] LABS: Alanine Aminotransferase 21 U/L (12-78); Aspartate Amino Transferase 24 U/L (14-36); Bilirubin,Unconjugated 0.2 mg/dL (0.0-1.1); Blood Urea Nitrogen 49 mg/dl (7-17); Carbon Dioxide 22 mmol/L (22.0-30.0); Estimated Glomerular Filt Rate 26 ml/min (>60); GFR (African American) 32 ML/MIN (>60)
[2024-06-02 11:05] LABS: Alkaline Phosphatase 126 U/L (38-126); Bilirubin,Direct 0.1 mg/dl (0.0-0.4); Bilirubin,Indirect 0.2 mg/dL (0.0-0.9); Bilirubin,Total 0.3 mg/dl (0.2-1.3); Calcium 9.6 mg/dl (8.4-10.2); Cholesterol 155 mg/dl (140-200); Glucose 182 mg/dl (74-100); HDL Cholesterol 39 mg/dl (40-60); Magnesium 2.2 mg/dl (1.6-2.3); Total Protein,Serum 6.8 g/dl (6.3-8.2); Triglycerides 163 mg/dl (30-150); VLDL Cholesterol 33 mg/dL (0-40)
[2024-06-02 11:06] LABS: Albumin Level 4.2 g/dl (3.5-5.0); Anion Gap 13.8 mEq/L (5-15); Chloride 110 mmol/L (98-107); Sodium 141 mmol/L (136-145)
[2024-06-02 11:16] LABS: Direct LDL Cholesterol 74.44 mg/dL (100-129)
[2024-06-02 11:20] LABS: Free T4 (Free Thyroxine) 1.03 ng/dl (0.78-2.19)
[2024-06-02 11:34] LABS: Thyroid Stimulating Hormone 0.46 uIU/mL (0.465-4.68)
== END 2024-06-02 23:59 | disposition home or self-care (01) ==
PROVIDERS: PCP Internal Medicine; Visit Provider Nurse Practitioner
DX: I47.10 Supraventricular tachycardia, unspecified (principal)
CPT/HCPCS: 36415; 80048; 80061; 80076; 83735; 84439; 84443; 85025; 93270

== ENCOUNTER 2024-06-23 12:52 | Outpatient (CLI) | payer MEDICAID, SELFPAY ==
[2024-06-23 14:29] LABS: Alanine Aminotransferase 19 U/L (12-78); Alkaline Phosphatase 126 U/L (38-126); Anion Gap 10.6 mEq/L (5-15); Aspartate Amino Transferase 24 U/L (14-36); Bilirubin,Direct 0.3 mg/dl (0.0-0.4); Bilirubin,Total 0.3 mg/dl (0.2-1.3); Blood Urea Nitrogen 42 mg/dl (7-17); Calcium 9.3 mg/dl (8.4-10.2); Carbon Dioxide 26 mmol/L (22.0-30.0); Chloride 110 mmol/L (98-107); Chol/HDL Ratio 4.1 (1-3.5); Cholesterol 147 mg/dl (140-200); Estimated Glomerular Filt Rate 24 ml/min (>60); GFR (African American) 29 ML/MIN (>60); Glucose 195 mg/dl (74-100); HDL Cholesterol 36 mg/dl (40-60); Magnesium 2.4 mg/dl (1.6-2.3); Potassium 4.6 mmoL/L (3.5-5.1); Sodium 142 mmol/L (136-145); Total Protein,Serum 6.7 g/dl (6.3-8.2); Triglycerides 144 mg/dl (30-150); VLDL Cholesterol 29 mg/dL (0-40)
[2024-06-23 14:40] LABS: Direct LDL Cholesterol 71.44 mg/dL (100-129)
[2024-06-23 15:03] LABS: Thyroid Stimulating Hormone 0.42 uIU/mL (0.465-4.68)
== END 2024-06-23 23:59 | disposition home or self-care (01) ==
LOC: LAB 12:52
PROVIDERS: PCP Internal Medicine; Visit Provider Nurse Practitioner
DX: I47.10 Supraventricular tachycardia, unspecified (principal); E78.5 Hyperlipidemia, unspecified; R42 Dizziness and giddiness
CPT/HCPCS: 36415; 80048; 80061; 80076; 83735; 84443

== ENCOUNTER 2024-07-01 10:26 | Day surgery (SDC) | payer MEDICAID, SELFPAY ==
[2024-06-30 09:26] VITALS: BMI 26.6
[2024-07-01 10:40] VITALS: BP 149/88; PULSE 81; RESP 16; TEMP 36.6; O2SAT 100; BMI 26.6
[2024-07-01] MEDS: LACTATED RINGERS 1000ML 1,000 ML 50 ML IV (11:02)
[2024-07-01 11:05] LABS: POC Glucose,Bedside 156 (70-110)
--- NOTE | 2024-07-01 11:09 | EXP.ANES.CKL ---
[facility] Disclaimer: The information contained in this section may have been updated after the patient was seen, as this information can be updated by other users. Medical History SVT (supraventricular tachycardia) SVT (supraventricular tachycardia) Chronic kidney disease History of back pain History of cataract Edema Encounter for pre-operative cardiovascular clearance Renal disease Hydradenitis Bilateral carpal tunnel syndrome Bipolar II disorder GERD (gastroesophageal reflux disease) Lymphedema CAD (coronary artery disease) COPD (chronic obstructive pulmonary disease) Dyspnea Tobacco abuse HTN (hypertension) Diastolic dysfunction Subungual hematoma of great toe of left foot Candidiasis, intertrigo Subungual hematoma of fifth toe of left foot Back Pain Osteoarthritis Leg swelling Memory Loss Neck pain Vitamin D deficiency (~06/29/17) Hyperlipidemia (~06/29/17) Diabetes mellitus Type 2 diabetes mellitus Surgical History H/O gastric sleeve History of ankle surgery History of incision and drainage History of bilateral carpal tunnel release History of section Family History Mother Diabetes Father Diabetes Lymphoma Social History Smoking Status: Current every day smoker smoking status stop date: 1 year ago quit status: considering quitting second hand exposure: No alcohol intake: never substance use type: denies use current occupational status: disabled Travel in the last 8 weeks: None adopted: No caregiver/support person: No foster care: No household members: spouse housing: apartment lives independently: Yes marital status: number of children: 1 number of grandchildren: 0 education level: high school service: No residential: No current occupational exposures/hazards: No Hx Recent Travel: No sexually active: No caffeine: No physical activity: none phil/hinduism: Cheondoism special phil needs: No working smoke detector in home: Yes fire extinguisher in home: No carbon monox detector in home: No firearms in home: No do you feel safe at home: Yes Have you lived/traveled outside US in past 30 days?: No Contact w/someone who lives/traveled outside US past 30 days?: No Exposure to someone with infectious disease in past 14 days?: No Do you have a fever (greater than 100.4 F or 38 C)?: No Have you tested positive for COVID-19: No Exposed to someone with COVID-19 in past 14 days?: No Do you have a sore throat?: No Do you have a cough?: No Do you have any weakness?: No Are you experiencing any nausea/vomitting?: No Do you have any diarrhea?: No Are you experiencing any unusual bleeding?: No Do you have any muscle aches/pain?: No Do you have any abdominal pain?: No Are you experiencing loss of taste or smell?: No [facility] Anesthesia Checklist Patient Identification Patient Identification: Arm Band Structural Data Admitted From: Home Planned Operative Procedure/s: Colonoscopy Consent for Planned Operative Procedure(s) Verified: Yes Verified Documents: Surgical Consent and History and Physical NPO Status Verified Time NPO: 00:00 Additional verifications Anesthesia Reactions: No Hx Blood Transfusions: No Blood Transfusion Reaction: No Airway Assessment Mallampati Score:: Class II C-Spine Mobility Assessed: Yes TMJ Mobility Assessed: Yes Dentition: Good Dentition Neurological Assessment Level of Consciousness: Awake, Alert and Appropriate Anesthesia Plan Anesthesia Risk discussed: Yes Anesthesia Plan: Verified ASA Class: III Anesthesia Type: MAC
--- NOTE | 2024-07-01 11:11 | HMH.SCOPE ---
Procedure: Date: 07/01/24 Patient Date of :: 1975 Procedure Performed:: Total colonoscopy to terminal ileum with polypectomy using biopsy forceps Indications:: Patient is a 49-year-old female with stage IV chronic end-stage renal disease who has been undergoing evaluation for possible renal transplant. She had been scheduled for screening colonoscopy which I performed on 12/05/2022. She had a total of 5 tubular adenomas several of which were complex removed at that time. Most notable polyp was flat sessile adenomatous polyp at the splenic flexure removed using hot snare and retrieval with Doyle net after maceration. She had a poor to fair preparation. Recommendations were for follow-up colonoscopy in 6 to 12 months. Patient states that she has subsequently undergone sleeve gastrectomy and has lost about 90 pounds. She presented for a follow-up colonoscopy on 05/13/2024 at which time she underwent prep with MiraLAX and Dulcolax. Colonic prep was poor and adequate visualization was unable to be achieved therefore the colonoscopy was aborted after the colonoscope was advanced to the sigmoid colon with nonvisualization. Plan was made for rescheduling with multi day maximum prep. . Performing Provider:: Jong Rasmussen MD Referring Provider:: Raad Paula MD Sedation:: MAC sedation Procedure:: Patient history was obtained and appropriate physical examination was performed. Patient's medications and allergies were reviewed. Informed consent was obtained after explaining the benefits, alternatives, and risks of the procedure including, but not limited to, bleeding, perforation, missed lesions, and adverse reaction to anesthesia medications. Patient was transported to endoscopy procedure room. Patient was connected to monitoring devices. Throughout the procedure the patient's blood pressure, pulse, and oxygen saturations were monitored continuously. Patient identification and planned procedure were verified by the staff. Patient was positioned in lateral decubitus position. Digital anorectal exam was performed. Variable stiffness Olympus colonoscope was inserted and advanced under direct visualization to the cecum. Adequacy of the colonic preparation was noted. The colonoscope was advanced a short distance into the terminal ileum. The colonoscope was then slowly withdrawn while carefully examining the color, texture, anatomy, and integrity of the mucosoa circumferentially. Within the rectum retroflexion was performed. Colonoscope was then withdrawn. Impression: Colonic preparation was fair despite high-volume trans colonoscopic irrigation and suctioning with some particulate opaque stool throughout the colon and undigested vegetable matter. Upon insertion of the colonoscope near the splenic flexure there were a couple of tiny diminutive polyps removed with biopsy forceps. The sigmoid colon there was a diminutive polyp removed with biopsy forceps. Findings:: Fair preparation Diminutive polyps as noted Recommendations:: Repeat colonoscopy 1 year due to suboptimal preparation with multi day prep and actual low residue diet Complications:: None immediately apparent Estimated blood obtained (mL): 1 Colonoscopy Component Colonoscopy Component Was a colonoscopy performed during today's procedure?: Yes Recommended follow up colonoscopy of at least 10 years?: No If no, follow up colonoscopy recommended in ___ years?: See above Reason for not recommending >/= 10 yr follow-up interval?: See above
[2024-07-01 11:32] VITALS: O2SAT 100
[2024-07-01 12:03] VITALS: BP 109/66; PULSE 80; RESP 16; TEMP 36.1; O2SAT 94
[2024-07-01 12:18] VITALS: BP 122/80; PULSE 81; RESP 16; TEMP 36.1; O2SAT 95
[2024-07-01 12:30] VITALS: BP 118/73; PULSE 80; RESP 16; TEMP 36.1; O2SAT 96
== END 2024-07-01 12:30 | disposition home or self-care (01) ==
PROVIDERS: PCP Internal Medicine; Visit Provider Surgery
PROC: 0DJD8ZZ Inspection of Lower Intestinal Tract, Via Natural or Artificial Opening Endoscopic (ICD-10-PCS; CPT 45380; principal; 2024-07-01 11:45)
DX: K63.5 Polyp of colon (principal); Z86.0100 Personal history of colon polyps, unspecified
CPT/HCPCS: 45380; 82962; J2704; J7120

== ENCOUNTER → 2024-07-06 10:05 | Outpatient (CLI) | payer MEDICAID, SELFPAY | LOC: SL 07-07 10:06 | PROVIDERS: PCP Specialist; Visit Provider Specialist | DX: G47.33 Obstructive sleep apnea (adult) (pediatric) (principal); E11.65 Type 2 diabetes mellitus with hyperglycemia; N18.9 Chronic kidney disease, unspecified | CPT/HCPCS: G0399 ==

== ENCOUNTER 2024-07-19 09:40 | Outpatient (CLI) | payer MEDICAID, SELFPAY ==
[2024-07-19 18:07] LABS: Basophils # 0.1 K/mm3 (0-0.2); Basophils % 0.9 % (0.1-2.0); Eosinophils # 0.4 K/mm3 (0.0-0.4); Eosinophils % 3.9 % (0.1-12.0); Hematocrit 42.6 % (37.0-47.0); Hemoglobin 13.6 g/dL (12.2-16.2); Lymphocytes # 1.8 K/mm3 (0.7-4.5); Lymphocytes % 18.3 % (10-50); Mean Corpuscular HGB Conc 31.9 g/dL (31.8-35.4); Mean Corpuscular Hemoglobin 29.8 pg (27.0-31.2); Mean Corpuscular Volume 93.2 fl (81-99); Mean Platelet Volume 13.3 fl (7.4-10.4); Monocytes # 0.4 K/mm3 (0.1-1.0); Monocytes % 3.7 % (1.7-9.3); Neutrophils # 7.1 K/mm3 (1.8-7.8); Platelet Count 226 K/mm3 (142-424); Red Blood Count 4.57 M/mm3 (4.20-5.40); White Blood Count 9.7 K/mm3 (4.8-10.8)
[2024-07-19 19:50] LABS: Alanine Aminotransferase 14 U/L (12-78); Albumin Level 4.2 g/dl (3.5-5.0); Albumin/Globulin Ratio 1.4 (1.1-1.8); Alkaline Phosphatase 140 U/L (38-126); Anion Gap 14.6 mEq/L (5-15); Aspartate Amino Transferase 20 U/L (14-36); Bilirubin,Total 0.6 mg/dl (0.2-1.3); Blood Urea Nitrogen 34 mg/dl (7-17); Calcium 10.2 mg/dl (8.4-10.2); Carbon Dioxide 21 mmol/L (22.0-30.0); Chloride 110 mmol/L (98-107); Chol/HDL Ratio 4.4 (1-3.5); Cholesterol 173 mg/dl (140-200); Estimated Glomerular Filt Rate 18 ml/min (>60); GFR (African American) 22 ML/MIN (>60); Glucose 168 mg/dl (74-100); HDL Cholesterol 39 mg/dl (40-60); Potassium 4.6 mmoL/L (3.5-5.1); Sodium 141 mmol/L (136-145); Total Protein,Serum 7.2 g/dl (6.3-8.2); Triglycerides 187 mg/dl (30-150); VLDL Cholesterol 37 mg/dL (0-40)
[2024-07-19 20:06] LABS: Direct LDL Cholesterol 84.94 mg/dL (100-129)
== END 2024-07-19 23:59 | disposition home or self-care (01) ==
LOC: LAB.DROPOF 07-20 13:32
PROVIDERS: PCP Family Medicine; Visit Provider Family Medicine
DX: E78.2 Mixed hyperlipidemia (principal); E11.65 Type 2 diabetes mellitus with hyperglycemia; N18.9 Chronic kidney disease, unspecified; E11.22 Type 2 diabetes mellitus with diabetic chronic kidney disease; I12.9 Hypertensive chronic kidney disease with stage 1 through stage 4 chronic kidney disease, or unspecified chronic kidney disease
CPT/HCPCS: 80053; 80061; 83036; 85025

== ENCOUNTER 2024-08-08 13:12 | Outpatient (CLI) | payer MEDICAID, SELFPAY ==
--- NOTE | 2024-08-08 13:30 | CT_ITS ---
FINAL REPORT CLINICAL HISTORY: lung cancer screening. Smoker. 2ppd for 20 years. FINDINGS: CTDI vol (mGy): 2.90 DLP: 99.[address] images of the chest were obtained using the low-dose protocol for screening. There is no evidence of mediastinal or hilar mass or adenopathy. No axillary mass or adenopathy is identified. On the lung window images, no pulmonary mass or suspicious nodule is identified. Postoperative changes of gastric sleeve are noted. IMPRESSION: Lung RADS category 1 . Recommend 12 month followup low-dose CT for further evaluation. Reviewed, Interpreted and Dictated by Aj Quiroz MD Transcribed by Alexus Umana Authenticated and [facility]
== END 2024-08-08 23:59 | disposition home or self-care (01) ==
LOC: RAD 13:13
PROVIDERS: PCP Family Medicine; Visit Provider Family Medicine
DX: F17.210 Nicotine dependence, cigarettes, uncomplicated (principal)
CPT/HCPCS: 71271

== ENCOUNTER 2024-09-30 16:38 | Outpatient (CLI) | payer MEDICAID, SELFPAY ==
--- OUTSIDE RECORDS SUMMARY | 2024-08-17 16:00 | XMS_ITS | Encounter Summary ---
Author Organization [facility] Address [address] [place] [address] Care Team Providers Care Analytical Lead Name Role Phone Lynda Spencer MD Unavailable [phone] Dyllan Gil APRN Primary Care Provider [phone] Reason for Visit * Reason Comments Follow-up Encounter Details Date Type Department Care Team ([facility] Contact Info) Description 08/17/2024 4:00 PM EDT Office Visit Professional [facility] Nephrology, Bone & Mineral Metabolism [address], [address] [place] [address] Lynda Spencer MD [address] [place] [address] CKD (chronic kidney disease) stage 4, GFR 15-29 ml/min (CMS/HCC) (Primary Dx); Essential hypertension Social History Tobacco Use Types Packs/Day Years Used Date Smoking Tobacco: Former Cigarettes 2 30 0 06/12/1992 - 06/12/2022 Passive Smoke Exposure: Past Smokeless Tobacco: Never Comments:None smoker 30days Alcohol Use Standard Drinks/Week Comments No 0 (1 standard drink = 0.6 oz pur e alcohol) PHQ-2 Answer Date Recorded Patient Health Questionnaire-2 Score 0 07/11/2024 PHQ-2A Answer Date Recorded Patient Health Questionnaire-2 Score 0 06/26/2022 Comments No Sex and Gender Information Value Date Recorded Sex Assigned at Female 07/28/2022 2:53 PM EDT Legal Sex Female 8:17 PM EDT Gender Identity Female 07/28/2022 2:53 PM EDT Sexual Orientation Not on file documented as of this encounter Last Filed Vital Signs Vital Sign Reading Time Taken Comments Blood Pressure 119/80 08/17/2024 3:22 PM EDT Pulse 80 08/17/2024 3:22 PM EDT Temperature 36.5 C (97.7 F) 08/17/2024 3:22 PM EDT Respiratory Rate - - Oxygen Saturation 98% 08/17/2024 3:22 PM EDT Inhaled Oxygen Concentration - - Weight 72.1 kg (158 lb 15.2 oz) 08/17/2024 3:22 PM EDT Height 167.6 cm (5' 6 ) 08/17/2024 3:22 PM EDT Body Mass Index 25.66 08/17/2024 3:22 PM EDT documented in this encounter Functional Status * Does this person have serious difficulty walking or climbing stairs? Answer Date of Assessment Author No 07/11/2024 2:39 PM EDT * Does this person have difficulty dressing or bathing? Answer Date of Assessment Author No 06/11/2023 1:38 PM EST * Because of a physical, mental, or emotional condition, does this person have difficulty doing errands alone such as visiting a doctor's office or shopping? Answer Date of Assessment Author No 06/11/2023 1:38 PM EST documented as of this encounter Miscellaneous Notes * Progress Notes - Lynda Spencer MD - 08/17/2024 4:00 PM EDT SUBJECTIVE Melanie Healy is a 49 y.o. female who presents for follow-up of CKD 4. Feeling well. Pt back walking again. Started smoking again. She is trying to quit again. BP remainsstable. No changes in energy level. Denies hematuria, dysuria, abd pain, SOA, CP. OBJECTIVE Vitals: 08/17/24 1522 BP: 119/80 Pulse: 80 Temp: 36.5 ??C (97.7 ??F) SpO2: 98% PHYSICAL EXAMINATION Gen: NAD, well-developed HEENT: AT/NC, EOMI Neck: trachea midline, supple Skin: warm, dry CV: RRR, no edema Pulm: no increased work of breathing, symmetric chest expansion, good inspiratory/expiratory effort GI: abd soft, ND Neuro: alert, interactive, cortical function grossly intact LAB RESULTS Lab Results Component Value Date CREATININE 2.23 (H) 07/11/2024 BUN 39 (H) 07/11/2024 NA 141 07/11/2024 K 4.3 07/11/2024 CL 105 07/11/2024 CO2 22 07/11/2024 Lab Results Component Value Date ALBUMIN 4.1 07/11/2024 Lab Results Component Value Date CALCIUM 9.3 07/11/2024 PHOS 3.0 10/21/2023 Lab Results Component Value Date WBC 9.37 07/11/2024 HGB 13.5 07/11/2024 HCT 42.8 07/11/2024 MCV 93 07/11/2024 PLT 189 07/11/2024 ASSESSMENT/PLAN Assessment: - CKD 4/5: from long-standing DM2 since age 16 yo and nsaid use. Cr was holding 3.4-3.7, but improved to Cr 2.8-3.0 after sleeve gastrectomy. If renal function fails, then she would prefer home dialysis, PD, if needed. She has attended [facility]. Pt referred to [facility]. Current Cr 2.2, BUN39, with stable electrolytes, eGFR 26 ml/min. - Proteinuria: Proteinuria w/u without evidence of viral or autoimmune etiology. Suspect related todiabetic nephropathy or secondary FSGS from uncontrolled DM and obesity. At one time, UPC > 5 mg/mg. UPC recent range has been 1.1-1.4 mg/mg. Last UPC 0.5 mg/mg. - HTN: controlled at home. - DM 2: Hb A1c 7.9%. No longer on insulin. - Hyperkalemia: K now within normal limit - Anemia in CKD: Hb 13.5 g/dL. Not on BOBBI. Has received IV iron in past. Not considered anemic if Hb remains at current level. - CKD-MBD/ Vitamin D Deficiency: vit D 61, PTH 79. Phos 4.6, Ca 9.6. On cholecalciferol. - Obesity: resolved with gradual weight loss with dietary changes. S/p robotic sleeve gastrectomy 02/2023. Ozempic completed. Plan/ Recs: - continue losartan 25 mg daily and metoprolol XL 25 mg daily. Renewed losartan. - plan for PD if/when pt needs to be initiated. Will monitor renal function closely - Rx cholecalciferol 25 mcg daily to reduce from 50 mcg daily. - still in connection with transplant. Encouraged to quit smoking. RTC in 3 months Orders Placed This Encounter Procedures Creatinine, Random, Urine Standing Status: Future Expected Date: 08/17/2024 Expiration Date: 02/16/2026 Release to patient in [facility]: Immediate Protein, Random, Urine with Creatinine Standing Status: Future Expected Date: 08/17/2024 Expiration Date: 02/16/2026 [facility] in [facility]: Immediate Urinalysis with reflex microscopic (Culture NOT Included) Standing Status: Future Expected Date: 08/17/2024 Expiration Date: 02/16/2026 Release to [facility] in [facility]: Immediate CBC W/O Differential Standing Status: Future Expected Date: 08/17/2024 Expiration Date: 02/16/2026 Release to patient in [facility]: Immediate Renal Function Panel, Plasma Standing Status: Future Expected Date: 08/17/2024 Expiration Date: 02/16/2026 Release to patient in [facility]: Immediate Vitamin D 25 Hydroxy Standing Status: Future Expected Date: 08/17/2024 Expiration Date: 02/16/2026 Release to patient in [facility]: Immediate PTH, intact Standing Status: Future Expected Date: 08/17/2024 Expiration Date: 02/16/2026 Release to patient in [facility]: Immediate [1] Note to Patient: The Cure Act makes medical noted like these available to patients in the interest of transparency. However, be advised this is a medical document. It is intended as peerto peer communication. It is written in medical language and may contain abbreviations or verbiage that are unfamiliar. It may appear blunt or direct. Medical documents are intended to carry relevantinformation, facts as evident, and the clinical opinion of the physician documented in this encounter Plan of Treatment Upcoming Encounters Date Type Department Care Team (Late st Contact Info) Description 10/19/2024 10:40 AM EDT Office Visit [facility] [address] [place] [address] Makayla Bahena APRN [address] [place] [address] 10/26/2024 9:45 AM EDT Office Visit [facility] [address] [place] [address] Munira Keen MD [address] [place] [address] 11/16/2024 1:20 PM EDT Office Visit [facility] Nephrology, Bone & Mineral Metabolism [address], [address] [place] [address] Lynda Spencer MD [address] [place] [address] Scheduled Orders Name Type Priority Associated Diagnoses Orde r Schedule Creatinine, Random, Urine Lab Routine CKD (chronic kidney disease) stage 4, GFR 15-29 ml/min (CMS/HCC) Expected: 08/17/2024 (Approximate), Expires: 02/16/2026 Protein, Random, Urine with Creatinine Lab Routine CKD (chronic kidney disease) stage 4, GFR 15-29 ml/min (CMS/HCC) Expected: 08/17/2024 (Approximate), Expires: 02/16/2026 Urinalysis with reflex microscopic (Culture NOT Included) Lab Routine CKD (chronic kidney disease) stage 4, GFR 15-29 ml/min (CMS/HCC) Expected: 08/17/2024 (Approximate), Expires: 02/16/2026 CBC W/O Differential Lab Routine CKD (chronic kidney disease) stage 4, GFR 15-29 ml/min (CMS/HCC) Expected: 08/17/2024 (Approximate), Expires: 02/16/2026 Renal Function Panel, Plasma Lab Routine CKD (chronic kidney disease) stage 4, GFR 15-29 ml/min (CMS/HCC) Expected: 08/17/2024 (Approximate), Expires: 02/16/2026 Vitamin D 25 Hydroxy Lab Routine CKD (chronic kidney disease) stage 4, GFR 15-29 ml/min (CMS/HCC) Expected: 08/17/2024 (Approximate), Expires: 02/16/2026 documented as of this encounter Visit Diagnoses Diagnosis CKD (chronic kidney disease) stage 4, GFR 15-29 ml/min (CMS/HCC)- Primary Chronic kidney disease, Stage IV (severe) Essential hypertension Unspecified essential hypertension documented in this encounter Additional Health Concerns Assessment Noted Time A fall risk assessment has been complete d for the patient 08/17/2024 3:29 PM EDT A Body Mass Index follow-up plan has been documented for the patient 08/17/2024 4:49 PM EDT documented as of this encounter Care Teams Analytical Lead Relationship Specialty Start Date End Date Dyllan Gil APRN [address] [place] [address] PCP - General 06/11/22 Lynda Spencer MD [address] [address] Referring Physician Nephrology 06/09/22 documented as of this encounter
--- OUTSIDE RECORDS SUMMARY | 2024-08-24 13:15 | XMS_ITS | Encounter Summary ---
Author Organization [facility] Address [address] [place] [address] Care Team Providers Care Technical Sourcing Recruiter Name Role Phone Lynda Spencer MD Unavailable [phone] Dyllan Gil APRN Primary Care Provider [phone] Reason for Referral * Clinic-Administered Medication (Routine) - Authorized Specialty Diagnoses / Procedures Referred By Contac t Referred To Contact Diagnoses 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 type [address] BEVACIZUMAB INJE[address] Carolee Quiles MD [address] [employer] [address] [place] [address] Phone: tel: fax: Referral ID Status Reason Start Date Expiration Date V isits Requested Visits Authorized [id number] Authorized 08/24/2024 02/23/2026 1 12 Encounter Details Date Type Department Care Team (Latest Contact Info) Description 08/24/2024 1:15 PM EDT Office Visit [facility] [address] [place] [address] Carolee Quiles MD [address] [employer] [address] [place] [address] Proliferative diabetic retinopathy of both [...] reach the clinic on the phone. Call [phone] and ask for the fire loss prevention engineer publication editor if it is after hours or a [...] Diagnosis Date Ankle fracture Bipolar affective disorder ([facility]) Cataract [id number] Chronic kidney disease Diabetic retinopathy ([facility]) HLD (hyperlipidemia) Hypertension Hypertensive retinopathy [...] Decompression Median Nerve At Carpal Tunnel from [employer] CATARACT EXTRACTION W/ INTRAOCULAR LENS IMPLANT Right 03/08/2024 , [facility] SECTION, LOW TRANSVERSE N/A 1994, 2000 ESOPHAGOGASTRODUODENOSCOPY 06/27/2022 GASTRIC BYPASS OTHER SURGICAL HISTORY r/t hidradenitis suppurativa multiple 1992,1993,1996,2001, 2002, PANRETINAL PHOTOCOAGULATION Bilateral PILONIDAL CYST DRAINAGE N/A Pilonidal Cyst Resection from [employer] RETINAL LASER PROCEDURE ROOT CANAL VITRECTOMY Right [...] diabetic, left eye - had surgery in [place] on OD recently with pre-op ELICIA - [...] plan as otherwise documented. Carolee Quiles MD Vacuum Cleaner Repairer of Ophthalmology Vitreoretinal Surgery Tobacco Cessation: Tobacco Use: Medium Risk (08/24/2024) Patient History Smoking Tobacco Use: Former Smokeless Tobacco Use: Never Passive Exposure: Past The patient has been counseled on tobacco cessation: Not Applicable documented in this encounter Plan of Treatment Upcoming Encounters Date Type Department Care Team (Late st Contact Info) Description 10/19/2024 10:40 AM EDT Office Visit [facility] Endocrinology [address] [place] [address] Makayla Bahena, COMMUNITY DEVELOPMENT WORKER [address] [facility] [address] [place] [address] 10/26/2024 9:45 AM EDT Office Visit [facility] [address] [place] [address] Munira Keen MD [address] [facility] [address] [place] [address] 11/16/2024 1:20 PM EDT Office Visit [facility] Nephrology, Bone & Mineral Metabolism [address] [facility], [address] [place] [address] Lynda Spencer MD [address] [facility] [address] [place] [address] documented as of this encounter [...] 2 MG/0.08ML Route: Intravitreal, Site: Left Eye [facility]: 42088-444-80, Lot: [id number], Expiration date: 11/19/2024 Post-op Post injection exam [...] documented as of this encounter Care Teams Technical Sourcing Recruiter Relationship Specialty Start Date End Date Dyllan Gil APRN [address] [place] [id number] PCP - General 06/11/22 Lynda Spencer MD [address] [address] Referring Physician Nephrology 06/09/22 documented as of this encounter
--- OUTSIDE RECORDS SUMMARY | 2024-08-24 13:40 | XMS_ITS | Encounter Summary ---
Author Organization [facility] Address [address] [place] [address] Care Team Providers Care Senior Web Analyst Name Role Phone Lynda Spencer MD Unavailable [phone] Dyllan Gil APRN Primary Care Provider [phone] Encounter Details Date Type Department Care Team (Late st Contact Info) Description 08/24/2024 1:40 PM EDT Ancillary Procedure [facility] [address] [place] [address] Social History Tobacco Use Types [...] Description 10/19/2024 10:40 AM EDT Office Visit [facility] Endocrinology [address] [place] [phone] Makayla Bahena S, HOSPITALITY SERVICES MANAGER [address] [facility] [address] [place] [address] 10/26/2024 9:45 AM EDT Office Visit [facility] [address] [place] [address] Munira Keen MD [address] [facility] [address] [place] [address] 11/16/2024 1:20 PM EDT Office Visit [facility] Nephrology, Bone & Mineral Metabolism [address] [place] [address] Lynda Spencer MD [address] [place] [address] documented as of this encounter [...] documented as of this encounter Care Teams Senior Web Analyst Relationship Specialty Start Date End Date Dyllan Gil APRN [address] [place] [id number] PCP - General 06/11/22 Lynda Spencer MD [address] [place] [phone] Referring Physician Nephrology 06/09/22 documented as of this encounter
--- NOTE | 2024-09-30 16:39 | MM_ITS ---
PROCEDURE INFORMATION: Exam: MG Bilateral Screening 3D Mammography Exam date and time: 09/30/2024 4:45 PM Age: 49 years old Clinical indication: Screening mammogram TECHNIQUE: Imaging protocol: Bilateral Screening tomosynthesis and 2D mammography including computer-aided detection (CAD) when performed. COMPARISON: 1. MG MM DIG SCREENING MAMM BI W/CAD 09/17/2023 3:31 PM 2. MG MM DIG SCREENING MAMM BI W/CAD 07/21/2022 2:34 PM FINDINGS: MAMMOGRAPHY: Breast composition: There are scattered areas of fibroglandular density. Mass: None. Architectural distortion: No new or suspicious architectural distortion. Calcifications: No new or suspicious calcifications are present Asymmetric density: No new or suspicious asymmetric density is present Skin thickening: None. Axillary adenopathy: None. IMPRESSION: No mammographic evidence of malignancy. Recommend annual screening mammography unless otherwise clinically indicated. ASSESSMENT: BI-RADS category 1: Negative.
--- OUTSIDE RECORDS SUMMARY | 2024-09-30 16:40 | XMS_ITS | Encounter Summary ---
Author Organization [facility] Address [address] [place] [address] Care Team Providers Care Online Marketing Director Name Role Phone Lynda Spencer MD Unavailable Dyllan Gil APRN Primary Care Provider [phone] Encounter Details Date Type Department Care Team (Latest Contact Info) Description 08/24/2024 Travel Social History Tobacco Use Types Packs/Day Years [...] 10/19/2024 10:40 AM EDT Office Visit [facility]olfo Nev[facility] Endocrinology [address] [place] [phone] Makayla Bahena APRN [address] [facility] [address] [place] [address] 10/26/2024 9:45 AM EDT Office Visit [facility] [place] [address] [place] [address] Munira Keen MD [address] [facility] [address] [place] [address] 11/16/2024 1:20 PM EDT Office Visit [facility] [employer] [place] [facility] [address] [place] [address] Lynda Spencer MD [address] [place] [address] documented as of this encounter Visit Diagnoses Not on filedocumented in this encounter Additional Health Concerns Assessment Noted Time A fall risk assessment has been complete d for the patient 08/24/2024 1:00 PM EDT A Body Mass Index follow-up plan has been documented for the patient 08/24/2024 2:24 PM EDT documented as of this encounter Care Teams Online Marketing Director Relationship Specialty Start Date End Date Dyllan Gil APRN [address] [place] [address] PCP - General 06/11/22 Lynda Spencer MD [address] [place] [address] Referring Physician Nephrology 06/09/22 documented as of this encounter
--- OUTSIDE RECORDS SUMMARY | 2024-09-30 16:40 | XMS_ITS | Encounter Summary ---
Author Organization [facility] Address [address] [place] [address] Care Team Providers Care Scratch Brusher Name Role Phone Lynda Spencer MD Unavailable [phone] Dyllan Gil APRN Primary Care Provider [phone] Encounter Details Date Type Department Care Team (Latest Contact Info) Description 08/17/2024 Travel Social History Tobacco Use Types Packs/Day [...] 10:40 AM EDT Office Visit Rodolfo Neville [facility] Endocrinology [address] [place] [phone] Makayla Bahena APRN [address] [facility] [address] [place] [address] 10/26/2024 9:45 AM EDT Office Visit [facility] [address] [place] [address] Munira Keen MD 110 [facility] [address] [place] [address] 11/16/2024 1:20 PM EDT Office Visit [facility] [employer] [place] [facility] Met[facility] [address] [place] [address] Lynda Spencer MD [address] [place] [address] documented as of this encounter Visit Diagnoses Not on filedocumented in this encounter Additional Health Concerns Assessment Noted Time A fall risk assessment has been complete d for the patient 08/17/2024 3:29 PM EDT A Body Mass Index follow-up plan has been documented for the patient 08/17/2024 4:49 PM EDT documented as of this encounter Care Teams Scratch Brusher Relationship Specialty Start Date End Date Dyllan Gil APRN [address] [place] [address] PCP - General 06/11/22 Lynda Spencer MD [address] [place] [address] Referring Physician Nephrology 06/09/22 documented as of this encounter
--- OUTSIDE RECORDS SUMMARY | 2024-09-30 16:40 | XMS_ITS | Encounter Summary ---
Author Organization [facility] Address [address] [place] [address] Care Team Providers Care [facility] Name Role Phone Lynda Spencer MD Unavailable [phone] Dyllan Gil APRN Primary Care Provider [phone] Reason for Visit * Reason Comments Med Refill Encounter Details Date Type Department Care Team ([facility] st Contact Info) Description 08/29/2024 Refill [employer] [facility] [address] [facility], [address] [place] [address] Lynda Spencer MD [address] [place] [address] Social History Tobacco Use Types Packs/Day Years [...] Description 10/19/2024 10:40 AM EDT Office Visit [facility] Endocrinology [address] [place] [address] Makayla Bahena APRN [address] [facility] [address] [place] [address] 10/26/2024 9:45 AM EDT Office Visit [facility] [address] [place] [address] Munira Keen MD 110 [facility] [address] [place] [address] 11/16/2024 1:20 PM EDT Office Visit [facility] Nephrology, Bone & Mineral Metabolism [address] [facility] [place] [address] Lynda Spencer MD [address] [facility] [address] [place] [address] documented as of this encounter Visit Diagnoses Not on filedocumented in this encounter Additional Health Concerns Assessment Noted Time A fall risk assessment has been complete d for the patient 08/24/2024 1:00 PM EDT A Body Mass Index follow-up plan has been documented for the patient 08/24/2024 2:24 PM EDT documented as of this encounter Care Teams [facility] Relationship Specialty Start Date End Date Dyllan Gil APRN [address] [place], [place] [id number] PCP - General 06/11/22 Lynda Spencer MD [address] [phone] Referring Physician Nephrology 06/09/22 documented as of this encounter
--- OUTSIDE RECORDS SUMMARY | 2024-09-30 16:40 | XMS_ITS | Data Portability ---
Author Organization [facility] & Svitlana [facility] ADMIN Address [address] [place] [id number] Care Team Providers Care Bow Rehairer Name Role Phone DIALLO PLAZA Primary Care Provider DEWEY TUTTLE, SANTHOSH Public Health Sanitarian Assessment Encounter Date Assessment Date Assessment LastModified by Organization Details LastModified Time 03/10/2024 03/10/2024 A total of 15 minutes was spent with the pt today. Recommendations: 1. Download [employer] lance to track calories and protein 2. Keep calories around 1000 to help with further weight loss 3. Add in a probiotic daily to help with digestion 4. Increase whole grains to 1 serving per day to help with digestion 5. Add in strength training exercises 3x/week to help accelerate weight loss 6. F/U with RD As needed Pt doing well overall. Addressed concerns today. Pt was reassured at today's visit. Pt verbally agreed to recommendations and goals. Denied further questions/concerns . RDN will monitor weight loss, labs, meds, and lifestyle modifications. Will f/up as scheduled or PRN. Not available 03/10/2024 15:06:52 Plan of Treatment Reminders Order Date Submit Date Provider Last Modified By Organization Details Last Modified Time Details Appointments OV EST 20 2024 01:00P LLOYD Quintero Not available Not available Not available Lab CMP, serum or plasma 2024 025 VELMA [facility], [address], [address], [place], [address], 09/30/2024 16:13:14 CBC w/ auto diff 2024 025 NING [facility], [address], [address], [place], [address], 09/30/2024 16:13:13 prealbumi n, serum 2024 025 NING [facility], [address], [address], [place], [address], 09/30/2024 16:13:20 vitamin D, 25-hydrox y, total, serum 2024 025 NING [facility], [address], [address], [place], [address], 09/30/2024 16:13:17 iron + TIBC + ferritin, serum 2024 025 NING [facility], [address], [address], [place], [address], 09/30/2024 16:13:13 vitamin E, serum 2024 025 NING [facility], [address], [address], [place], [address], 09/30/2024 16:13:15 vitamin A (retinol) , serum 2024 025 NING [facility], [address], [address], [place], [address], 09/30/2024 16:13:16 folate, serum 2024 025 NING [facility], [address], [address], [place], [address], 09/30/2024 16:13:16 thiamine, QN, blood 2024 025 NING [facility], [address], [address], [place], [address], 09/30/2024 16:13:18 methylmal kuldip, QN, serum or plasma 2024 025 NING [facility], [address], [address], [place], [address], 09/30/2024 16:13:18 CMP, serum or plasma 2023 024 NING [facility], [address], [address], [place], [address], 03/21/2024 14:36:39 CBC w/ auto diff 2023 024 NING [facility], [address], [address], [place], [address], 03/21/2024 14:36:38 folate, serum 2023 024 NING [facility], [address], [address], [place], [address], 03/21/2024 14:36:44 prealbumi n, serum 2023 024 NING [facility], [address], [address], [place], [address], 03/21/2024 14:36:50 thiamine, QN, blood 2023 024 NING [facility], [address], [address], [place], [address], 03/21/2024 14:36:48 HbA1c (hemoglob in A1c), blood 2023 024 NING [facility], [address], [address], [place], [address], 03/21/2024 14:36:43 iron + TIBC + ferritin, serum 2023 024 NING [facility], [address], [address], [place], [address], 03/21/2024 14:36:35 vitamin D, 25-hydrox y, total, serum 2023 024 NING [facility], [address], [address], [place], [address], 03/21/2024 14:36:46 vitamin E, serum 2023 024 NING [facility], [address], [address], [place], [address], 03/21/2024 14:36:42 vitamin A (retinol) , serum 2023 024 NING [facility], [address], [address], [place], [address], 03/21/2024 14:36:45 TSH + free T4, serum 2023 024 NING [facility], [address], [address], [place], [address], 03/21/2024 14:36:36 lipid panel, serum 2023 024 [facility], [address], [address], [place], [address], 03/21/2024 14:36:40 methylmal kuldip, QN, serum or plasma 2023 024 NING [facility], [address], [address], [place], [address], 03/21/2024 14:36:49 CMP, serum or plasma 2023 024 NING [facility], [address], [address], [place], [address], 12/25/2023 20:05:42 CBC w/ auto diff 2023 024 NING [facility], [address], [address], [place], [address], 12/25/2023 12:15:53 HbA1c (hemoglob in A1c), blood 2023 024 [facility], [address], [address], [place], [address], 01/06/2024 12:12:08 iron + TIBC + ferritin, serum 2023 024 [email or web address] [facility], [address], [address], [place], [address], 01/06/2024 12:12:08 folate, serum 2023 024 [email or web address] [facility], [address], [address], [place], [address], 01/06/2024 12:12:08 vitamin D, 25-hydrox y, total, serum 2023 024 NING [facility], [address], [address], [place], [address], 12/25/2023 13:07:01 vitamin E, serum 2023 024 NING [facility], [address], [address], [place], [address], 01/04/2024 07:18:37 vitamin A (retinol) , serum 2023 024 NING [facility], [address], [address], [place], [address], 01/04/2024 07:18:38 prealbumi n, serum 2023 024 [email or web address] [facility], [address], [address], [place], [address], 01/06/2024 12:12:08 thiamine, QN, blood 2023 024 [email or web address] [facility], [address], [address], [place], [address], 01/06/2024 12:12:08 lipid panel, serum 2023 024 NING [facility], [address], [address], [place], [address], 12/25/2023 20:05:42 methylmal kuldip, QN, serum or plasma 2023 024 [email or web address] [facility], [address], [address], [place], [address], 01/06/2024 12:12:08 CMP, serum or plasma 2023 024 NING [facility], [address], [address], [place], [address], 09/24/2023 11:13:25 CBC w/ auto diff 2023 024 NING [facility], [address], [address], [place], [address], 09/24/2023 11:13:24 vitamin D, 25-hydrox y, total, serum 2023 024 NING [facility], [address], [address], [place], [address], 09/24/2023 11:13:30 prealbumi n, serum 2023 024 NING [facility], [address], [address], [place], [address], 09/24/2023 11:13:33 thiamine, QN, blood 2023 024 NING [facility], [address], [address], [place], [address], 09/24/2023 11:13:31 iron + TIBC + ferritin, serum 2023 024 VELMA [facility], [address], [address], [place], [address], 09/24/2023 11:13:22 folate, serum 2023 024 VELMA [facility], [address], [address], [place], [address], 09/24/2023 11:13:28 vitamin E, serum 2023 024 VELMA [facility], [address], [address], [place], [address], 09/24/2023 11:13:27 vitamin A (retinol) , serum 2023 024 VELMA [facility], [address], [address], [place], [address], 09/24/2023 11:13:29 TSH + free T4, serum 2023 024 VELMA [facility], [address], [address], [place], [address], 09/24/2023 11:13:23 methylmal kuldip, QN, serum or plasma 2023 024 VELMA [facility], [address], [address], [place], [address], 09/24/2023 11:13:32 Referral None recorded. Procedures None recorded. Surgeries None recorded. Imaging None recorded. Medication Orders omeprazol e 20 mg capsule,d elayed release 2024 025 [facility], [address] [place], [id number], 09/23/2024 14:21:28 famotidin e 20 mg tablet 2024 025 [facility], [address] [place] [address] [address] [place], [id number], 09/23/2024 14:21:27 omeprazol e 20 mg capsule,d elayed release 2023 024 [facility], [address] [place] [address] [address] [place], [id number], 03/10/2024 14:33:45 Patient TargetsNo targets recorded. Patient InstructionsNo instructions recorded. Reason for Referral None Reported. Results Created Date Observation Date Name Description Value Unit Range Abnormal Flag Note LastModifiedBy Organization Detail LastModifiedTime 09/18/1909/19/2023 FE+TI BC+FE R iron bind.cap.(TI BC) 228 ug/dL 250-45 0 below low normal Not Available [facility] ([facility]) [address] [place], [address], 09/24/2023 11:13:22 09/18/19 24 09/19/2023 FE+TI BC+FE R UIBC 166 ug/dL 131-42 5 Not Available [facility] ([facility]) [address] [place], [address], 09/24/2023 11:13:22 09/18/19 24 09/19/2023 FE+TI BC+FE R iron 62 ug/dL 27-159 Not Available [facility] ([facility]) [address] [place], [address], 09/24/2023 11:13:22 09/18/19 24 09/19/2023 FE+TI BC+FE R iron saturation 27 % 15-55 Not Available [facility] ([facility]) [address] [place], [address], 09/24/2023 11:13:22 09/18/19 24 09/19/2023 FE+TI BC+FE R ferritin 269 NG/mL 15-150 above high normal Not Available [facility] ([facility]) [address] [place], [address], 09/24/2023 11:13:22 09/18/19 24 09/19/2023 TSH+F REE T4 TSH 1.380 uIU/m L 0.450- 4.500 Not Available [facility] ([facility]) [address] [place], [address], 09/24/2023 11:13:23 09/18/19 24 09/19/2023 TSH+F REE T4 T4,free(dire ct) 0.88 NG/dL 0.82-1 .77 Not Available [facility] ([facility]) [address] [place], [address], 09/24/2023 11:13:23 09/18/19 24 09/19/2023 CBC WITH DIFFE RENTI AL/PL ATELE T WBC 7.4 x10e3 /uL 3.4-10 .8 Not Available [facility] ([facility]) [address] [place], [address], 09/24/2023 11:13:24 09/18/19 24 09/19/2023 CBC WITH DIFFE RENTI AL/PL ATELE T RBC 3.86 x10e6 /uL 3.77-5 .28 Not Available [facility] ([facility]) [address] [place], [address], 09/24/2023 11:13:24 09/18/19 24 09/19/2023 CBC WITH DIFFE RENTI AL/PL ATELE T hemoglobin 11.6 g/dL 11.1-1 5.9 Not Available [facility] ([facility]) [address] [place], [address], 09/24/2023 11:13:24 09/18/19 24 09/19/2023 CBC WITH DIFFE RENTI AL/PL ATELE T hematocrit 34.5 % 34.0-4 6.6 Not Available [facility] ([facility]) [address] [facility], [place], [address], 09/24/2023 11:13:24 09/18/19 24 09/19/2023 CBC WITH DIFFE RENTI AL/PL ATELE T MCV 89 fL 79-97 Not Available [facility] ([facility]) [address] [facility], [place], [address], 09/24/2023 11:13:24 09/18/19 24 09/19/2023 CBC WITH DIFFE RENTI AL/PL ATELE T MCH 30.1 pg 26.6-3 3.0 Not Available [facility] ([facility]) [address] [facility], [place], [address], 09/24/2023 11:13:24 09/18/19 24 09/19/2023 CBC WITH DIFFE RENTI AL/PL ATELE T MCHC 33.6 g/dL 31.5-3 5.7 Not Available [facility] ([facility]) [address] [facility], [place], [address], 09/24/2023 11:13:24 09/18/19 24 09/19/2023 CBC WITH DIFFE RENTI AL/PL ATELE T RDW 13.3 % 11.7-1 5.4 Not Available [facility] ([facility]) [address] [facility], [place], [address], 09/24/2023 11:13:24 09/18/19 24 09/19/2023 CBC WITH DIFFE RENTI AL/PL ATELE T platelets 204 x10e3 /uL 150-45 0 Not Available [facility] ([facility]) [address] [place], [address], 09/24/2023 11:13:24 09/18/19 24 09/19/2023 CBC WITH DIFFE RENTI AL/PL ATELE T neutrophils 66 % not estab. Not Available [facility] ([facility]) [address] [facility], [place], [address], 09/24/2023 11:13:24 09/18/19 24 09/19/2023 CBC WITH DIFFE RENTI AL/PL ATELE T lymphs 25 % not estab. Not Available [facility] ([facility]) [address] [facility], [place], [address], 09/24/2023 11:13:24 09/18/19 24 09/19/2023 CBC WITH DIFFE RENTI AL/PL ATELE T monocytes 5 % not estab. Not Available [facility] ([facility]) [address] [facility], [place], [address], 09/24/2023 11:13:24 09/18/19 24 09/19/2023 CBC WITH DIFFE RENTI AL/PL ATELE T eos 3 % not estab. Not Available [facility] ([facility]) [address] [place], [address], 09/24/2023 11:13:24 09/18/19 24 09/19/2023 CBC WITH DIFFE RENTI AL/PL ATELE T basos 1 % not estab. 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 0 Not Available [facility] ([facility]) [address] [facility], [place], [address], 09/24/2023 11:13:24 09/18/19 24 09/19/2023 CBC WITH DIFFE RENTI AL/PL ATELE T lymphs (absolute) 1.9 x10e3 /uL 0.7-3. 1 Not Available [facility] ([facility]) [address] [facility], [place], [address], 09/24/2023 11:13:24 09/18/19 24 09/19/2023 CBC WITH DIFFE RENTI AL/PL ATELE T monocytes(ab solute) 0.3 x10e3 /uL 0.1-0. 9 Not Available [facility] ([facility]) [address] [facility], [place], [address], 09/24/2023 11:13:24 09/18/19 24 09/19/2023 CBC WITH DIFFE RENTI AL/PL ATELE T eos (absolute) 0.2 x10e3 /uL 0.0-0. 4 Not Available [facility] ([facility]) [address] [facility], [place], [address], 09/24/2023 11:13:24 09/18/19 24 09/19/2023 CBC WITH DIFFE RENTI AL/PL ATELE T baso (absolute) 0.1 x10e3 /uL 0.0-0. 2 Not Available [facility] ([facility]) [address] [facility], [place], [address], 09/24/2023 11:13:24 09/18/19 24 09/19/2023 CBC WITH DIFFE RENTI AL/PL ATELE T immature granulocytes 0 % not estab. Not Available [facility] ([facility]) [address] [facility], [place], [address], 09/24/2023 11:13:24 09/18/19 24 09/19/2023 CBC WITH DIFFE RENTI AL/PL ATELE T immature grans (abs) 0.0 x10e3 /uL 0.0-0. 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 METAB OLIC PANEL (14) glucose 84 mg/dL 70-99 Not Available [facility] ([facility]) [address] [facility], [place], [address], 09/24/2023 11:13:25 09/18/19 24 09/19/2023 COMP. METAB OLIC PANEL (14) BUN 36 mg/dL 6-24 above high normal Not Available [facility] ([facility]) [address] [facility], [place], [address], 09/24/2023 11:13:25 09/18/19 24 09/19/2023 COMP. METAB OLIC PANEL (14) creatinine 2.58 mg/dL 0.57-1 .00 above high normal Not Available [facility] ([facility]) [address] [place], [address], 09/24/2023 11:13:25 09/18/19 24 09/19/2023 COMP. METAB OLIC PANEL (14) eGFR 22 mL/mi n/1.7 3 >59 below low normal Not Available [facility] ([facility]) [address] [facility], [place], [address], 09/24/2023 11:13:25 09/18/19 24 09/19/2023 COMP. METAB OLIC PANEL (14) BUN/creatini ne ratio 14 9-23 Not Available [facility] ([facility]) [address] [facility] [place], [address], 09/24/2023 11:13:25 09/18/19 24 09/19/2023 COMP. METAB OLIC PANEL (14) sodium 144 mmol/ L 134-14 4 Not Available [facility] ([facility]) [address] [facility] [place], [address], 09/24/2023 11:13:25 09/18/19 24 09/19/2023 COMP. METAB OLIC PANEL (14) potassium 4.5 mmol/ L 3.5-5. 2 Not Available [facility] ([facility] [place] [facility]) [address] [facility] [place], [address], 09/24/2023 11:13:25 09/18/19 24 09/19/2023 COMP. METAB OLIC PANEL (14) chloride 109 mmol/ L 96-106 above high normal Not Available [facility] ([facility] [place] [facility]) [address] [place] [place], [address], 09/24/2023 11:13:25 09/18/19 24 09/19/2023 COMP. METAB OLIC PANEL (14) carbon dioxide, total 21 mmol/ L 20-29 Not Available [facility] ([facility]) [address] [place] [place], [address], 09/24/2023 11:13:25 09/18/19 24 09/19/2023 COMP. METAB OLIC PANEL (14) calcium 9.7 mg/dL 8.7-10 .2 Not Available [facility] ([facility]) [address] [place] [place], [address], 09/24/2023 11:13:25 09/18/19 24 09/19/2023 COMP. METAB OLIC PANEL (14) protein, total 7.3 g/dL 6.0-8. 5 Not Available [facility] ([facility]) [address] [place], [address], 09/24/2023 11:13:25 09/18/19 24 09/19/2023 COMP. METAB OLIC PANEL (14) albumin 4.3 g/dL 3.9-4. 9 Not Available [facility] ([facility]) [address] [place], [address], 09/24/2023 11:13:25 09/18/19 24 09/19/2023 COMP. METAB OLIC PANEL (14) globulin, total 3.0 g/dL 1.5-4. 5 Not Available [facility] ([facility]) [address] [place], [address], 09/24/2023 11:13:25 09/18/19 24 09/19/2023 COMP. METAB OLIC PANEL (14) A/G ratio 1.4 1.2-2. 2 Not Available [facility] ([facility]) [address] [place], [address], 09/24/2023 11:13:25 09/18/19 24 09/19/2023 COMP. METAB OLIC PANEL (14) bilirubin, total 0.3 mg/dL 0.0-1. 2 Not Available [facility] ([facility]) [address] [place], [address], 09/24/2023 11:13:25 09/18/19 24 09/19/2023 COMP. METAB OLIC PANEL (14) alkaline phosphatase 125 IU/L 44-121 above high normal Not Available [facility] ([facility]) [address] [place], [address], 09/24/2023 11:13:25 09/18/19 24 09/19/2023 COMP. METAB OLIC PANEL (14) AST (SGOT) 14 IU/L 0-40 Not Available [facility] ([facility]) [address] [place], [address], 09/24/2023 11:13:25 09/18/19 24 09/19/2023 COMP. METAB OLIC PANEL (14) ALT (SGPT) 8 IU/L 0-32 Not Available [facility] ([facility]) [address] [place], [address], 09/24/2023 11:13:25 09/18/19 24 09/24/2023 VITAM IN E vitamin E(alpha tocopherol) 12.1 mg/L 7.0-25 .1 Not Available [facility] ([facility]) [address] [place], [address], 09/24/2023 11:13:26 09/18/19 24 09/24/2023 VITAM IN E vitamin E(gamma tocopherol) 2.3 mg/L 0.5-5. 5 Refer ence inter vals for alpha and gamma -toco phero l deter mined from [facility] and Nutri tion Exami natio n Surve y, 2004- 2005. Indiv idual s with alpha -toco phero l level s less than 5.0 mg/L are consi dered vitam in E defic ient. Not Available [facility] ([facility]) [address] [place], [address], 09/24/2023 11:13:26 09/18/19 24 09/19/2023 FOLAT E (FOLI C ACID) , SERUM folate (folic acid), serum >20.0 NG/mL >3.0 A serum folat e valarie ntrat ion of less than 3.1 ng/mL is consi dered to repre sent clini kaden defic iency . Not Available [facility] ([facility]) [address] [place], [address], 09/24/2023 11:13:28 09/18/19 24 09/24/2023 VITAM IN A, SERUM vitamin A 44.3 ug/dL 20.1-6 2.0 Refer ence inter vals for vitam in A deter mined from [facility] inter nal studi es. Indiv idual s with vitam in A less than 20 ug/dL are consi dered vitam in A defic ient and those with serum valarie ntrat ions less than 10 ug/dL are consi dered sever sixto defic ient. This test was devel oped and its perfo rmanc e greg cteri stics deter mined by [facility]. It has not been clear ed or appro audi by the Food and Drug Admin istra tion. Not Available [facility] ([facility]) [address] [facility], [place], [address], 09/24/2023 11:13:29 09/18/19 24 09/19/2023 VITAM IN D, 25-HY DROXY vitamin D, 25-hydroxy 48.1 NG/mL 30.0-1 00.0 Vitam in D defic iency has been defin ed by the Insti tute of Medic ine and an Endoc rine Socie ty pract ice guide line as a level of serum 25-OH vitam in D less than 20 ng/mL (1,2) . The Endoc rine Socie ty went on to furth er defin e vitam in D insuf ficie ncy as a level betwe en 21 and 29 ng/mL (2). 1. IOM (Inst itute of Medic ine). 2009. Dieta ry refer ence intak es for calci um and D. Won dominguez [place]: The Natio [facility]al [facility] Press . 2. Hector varghese MF, Dick rivera [place], Evon off-F errjasmin i PINEDA, et al. Evalu ation , treat ment, and preve ntion of vitam in D defic iency : an Endoc rine Socie ty clini kaden pract ice guide line. JCEM. 2010; 96(7) :1911 -30. Not Available [facility] ([facility]) [address] [facility], [place], [address], 09/24/2023 11:13:30 09/18/19 24 09/23/2023 VITAM IN B1 (THIA MINE) , BLOOD vit. B1, whole blood 111.4 nmol/ L 66.5-2 00.0 Not Available [facility] ([facility]) [address] [place], [address], 09/24/2023 11:13:31 09/18/19 24 09/22/2023 METHY LMALO ENRIQUE ACID, SERUM methylmaloni c acid, serum 416 nmol/ L 0-378 above high normal Not Available [facility] ([facility]) [address] [facility], [place], [address], 09/24/2023 11:13:32 09/18/19 24 09/19/2023 PREAL BUMIN prealbumin 22 mg/dL 12-34 Not Available [facility] ([facility]) [address] [place], [address], 09/24/2023 11:13:33 03/10/20 24 03/11/2024 FE+TI BC+FE R iron bind.cap.(TI BC) 229 ug/dL 250-45 0 below low normal Not Available [facility] ([facility]) [address] [place], [address], 03/21/2024 14:36:35 03/10/20 24 03/11/2024 FE+TI BC+FE R UIBC 183 ug/dL 131-42 5 normal Not Available [facility] ([facility]) [address] [place], [address], 03/21/2024 14:36:35 03/10/20 24 03/11/2024 FE+TI BC+FE R iron 46 ug/dL 27-159 normal Not Available [facility] ([facility]) [address] [place], [address], 03/21/2024 14:36:35 03/10/20 24 03/11/2024 FE+TI BC+FE R iron saturation 20 % 15-55 normal Not Available [facility] ([facility]) [address] [place], [address], 03/21/2024 14:36:35 03/10/20 24 03/11/2024 FE+TI BC+FE R ferritin 184 NG/mL 15-150 above high normal Not Available [facility] ([facility]) [address] [place], [address], 03/21/2024 14:36:35 03/10/20 24 03/11/2024 TSH+F REE T4 TSH 1.400 uIU/m L 0.450- 4.500 normal Not Available [facility] ([facility]) [address] [place], [address], 03/21/2024 14:36:36 03/10/20 24 03/11/2024 TSH+F REE T4 T4,free(dire ct) 0.95 NG/dL 0.82-1 .77 normal Not Available [facility] ([facility]) [address] [place], [address], 03/21/2024 14:36:36 03/10/20 24 03/11/2024 CBC WITH DIFFE RENTI AL/PL ATELE T WBC 8.4 x10e3 /uL 3.4-10 .8 normal Eff ectiv e Decem sheela 2023 [place] [id number] 5 WBC will be made* * non-o rdera ble as a stand -radha e order code. Not Available [facility] ([facility]) [address] [place], [address], 03/21/2024 14:36:38 03/10/20 24 03/11/2024 CBC WITH DIFFE RENTI AL/PL ATELE T RBC 3.71 x10e6 /uL 3.77-5 .28 below low normal Not Available [facility] ([facility]) [address] [facility], [place], [address], 03/21/2024 14:36:38 03/10/20 24 03/11/2024 CBC WITH DIFFE RENTI AL/PL ATELE T hemoglobin 11.4 g/dL 11.1-1 5.9 normal Not Available [facility] ([facility]) [address] [facility], [place], [address], 03/21/2024 14:36:38 03/10/2003/11/2024 CBC WITH DIFFE RENTI AL/PL ATELE T hematocrit 34.6 % 34.0-4 6.6 normal Not Available [facility] ([facility]) [address] [facility], [place], [address], 03/21/2024 14:36:38 03/10/2003/11/2024 CBC WITH DIFFE RENTI AL/PL ATELE T MCV 93 fL 79-97 normal Not Available [facility] ([facility]) [address] [place], [address], 03/21/2024 14:36:38 03/10/20 24 03/11/2024 CBC WITH DIFFE RENTI AL/PL ATELE T MCH 30.7 pg 26.6-3 3.0 normal Not Available [facility] ([facility]) [address] [place], [address], 03/21/2024 14:36:38 03/10/20 24 03/11/2024 CBC WITH DIFFE RENTI AL/PL ATELE T MCHC 32.9 g/dL 31.5-3 5.7 normal Not Available [facility] ([facility]) [address] [facility], [place], [address], 03/21/2024 14:36:38 03/10/20 24 03/11/2024 CBC WITH DIFFE RENTI AL/PL ATELE T RDW 11.8 % 11.7-1 5.4 Not Available [facility] ([facility]) [address] [facility], [place], [address], 03/21/2024 14:36:38 03/10/20 24 03/11/2024 CBC WITH DIFFE RENTI AL/PL ATELE T platelets 162 x10e3 /uL 150-45 0 normal Not Available [facility] ([facility]) [address] [place], [address], 03/21/2024 14:36:38 03/10/20 24 03/11/2024 CBC WITH DIFFE RENTI AL/PL ATELE T neutrophils 65 % not estab. normal Not Available [facility] ([facility]) [address] [facility], [place], [address], 03/21/2024 14:36:38 03/10/20 24 03/11/2024 CBC WITH DIFFE RENTI AL/PL ATELE T lymphs 25 % not estab. normal Not Available [facility] ([facility]) [address] [facility], [place], [address], 03/21/2024 14:36:38 03/10/20 24 03/11/2024 CBC WITH DIFFE RENTI AL/PL ATELE T monocytes 5 % not estab. normal Not Available [facility] ([facility]) [address] [place], [address], 03/21/2024 14:36:38 03/10/20 24 03/11/2024 CBC WITH DIFFE RENTI AL/PL ATELE T eos 4 % not estab. normal Not Available [facility] ([facility]) [address] [place], [address], 03/21/2024 14:36:38 03/10/20 24 03/11/2024 CBC WITH DIFFE RENTI AL/PL ATELE T basos 1 % not estab. 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 0 normal Not Available [facility] ([facility]) [address] [place], [address], 03/21/2024 14:36:38 03/10/20 24 03/11/2024 CBC WITH DIFFE RENTI AL/PL ATELE T lymphs (absolute) 2.1 x10e3 /uL 0.7-3. 1 normal Not Available [facility] ([facility]) [address] [place], [address], 03/21/2024 14:36:38 03/10/20 24 03/11/2024 CBC WITH DIFFE RENTI AL/PL ATELE T monocytes(ab solute) 0.4 x10e3 /uL 0.1-0. 9 normal Not Available [facility] ([facility]) [address] [place], [address], 03/21/2024 14:36:38 03/10/20 24 03/11/2024 CBC WITH DIFFE RENTI AL/PL ATELE T eos (absolute) 0.3 x10e3 /uL 0.0-0. 4 normal Not Available [facility] ([facility]) [address] [place], [address], 03/21/2024 14:36:38 03/10/20 24 03/11/2024 CBC WITH DIFFE RENTI AL/PL ATELE T baso (absolute) 0.1 x10e3 /uL 0.0-0. 2 normal Not Available [facility] ([facility]) [address] [facility], [place], [address], 03/21/2024 14:36:38 03/10/20 24 03/11/2024 CBC WITH DIFFE RENTI AL/PL ATELE T immature granulocytes 0 % not estab. Not Available [facility] ([facility]) [address] [facility], [place], [address], 03/21/2024 14:36:38 03/10/20 24 03/11/2024 CBC WITH DIFFE RENTI AL/PL ATELE T immature grans (abs) 0.0 x10e3 /uL 0.0-0. 1 Not Available [facility] ([facility]) [address] [facility], [place], [address], 03/21/2024 14:36:38 03/10/20 24 03/11/2024 CBC WITH DIFFE RENTI AL/PL ATELE T NRBC ELECTROMECHANICAL INSPECTOR Not Available [facility] ([facility]) [address] [facility], [place], [address], 03/21/2024 14:36:38 03/10/20 24 03/11/2024 CBC WITH DIFFE RENTI AL/PL ATELE T hematology comments: ELECTROMECHANICAL INSPECTOR Not Available [facility] ([facility]) [address] [place], [address], 03/21/2024 14:36:38 03/10/20 24 03/11/2024 COMP. METAB OLIC PANEL (14) glucose 148 mg/dL 70-99 above high normal Not Available [facility] ([facility]) [address] [place], [address], 03/21/2024 14:36:39 03/10/20 24 03/11/2024 COMP. METAB OLIC PANEL (14) BUN 34 mg/dL 6-24 above high normal Not Available [facility] ([facility]) [address] [place], [address], 03/21/2024 14:36:39 03/10/20 24 03/11/2024 COMP. METAB OLIC PANEL (14) creatinine 2.07 mg/dL 0.57-1 .00 above high normal Not Available [facility] ([facility]) [address] [facility] [place], [address], 03/21/2024 14:36:39 03/10/20 24 03/11/2024 COMP. METAB OLIC PANEL (14) eGFR 29 mL/mi n/1.7 3 >59 below low normal Not Available [facility] ([facility]) [address] [facility] [place], [address], 03/21/2024 14:36:39 03/10/20 24 03/11/2024 COMP. METAB OLIC PANEL (14) BUN/creatini ne ratio 16 9-23 normal Not Available [facility] ([facility]) [address] [facility], [place], [address], 03/21/2024 14:36:39 03/10/20 24 03/11/2024 COMP. METAB OLIC PANEL (14) sodium 143 mmol/ L 134-14 4 normal Not Available [facility] ([facility]) [address] [facility] [place], [address], 03/21/2024 14:36:39 03/10/20 24 03/11/2024 COMP. METAB OLIC PANEL (14) potassium 4.8 mmol/ L 3.5-5. 2 normal Not Available [facility] ([facility]) [address] [facility] [place], [address], 03/21/2024 14:36:39 03/10/20 24 03/11/2024 COMP. METAB OLIC PANEL (14) chloride 106 mmol/ L 96-106 normal Not Available [facility] ([facility]) [address] [facility] [place], [address], 03/21/2024 14:36:39 03/10/20 24 03/11/2024 COMP. METAB OLIC PANEL (14) carbon dioxide, total 26 mmol/ L 20-29 normal Not Available [facility] ([facility]) [address] [place], [address], 03/21/2024 14:36:39 03/10/20 24 03/11/2024 COMP. METAB OLIC PANEL (14) calcium 9.5 mg/dL 8.7-10 .2 normal Not Available [facility] ([facility]) [address] [place], [address], 03/21/2024 14:36:39 03/10/20 24 03/11/2024 COMP. METAB OLIC PANEL (14) protein, total 6.8 g/dL 6.0-8. 5 normal Not Available [facility] ([facility]) [address] [place], [address], 03/21/2024 14:36:39 03/10/20 24 03/11/2024 COMP. METAB OLIC PANEL (14) albumin 4.1 g/dL 3.9-4. 9 normal Not Available [facility] ([facility]) [address] [place], [address], 03/21/2024 14:36:39 03/10/20 24 03/11/2024 COMP. METAB OLIC PANEL (14) globulin, total 2.7 g/dL 1.5-4. 5 Not Available [facility] ([facility]) [address] [place], [address], 03/21/2024 14:36:39 03/10/20 24 03/11/2024 COMP. METAB OLIC PANEL (14) bilirubin, total 0.2 mg/dL 0.0-1. 2 normal Not Available [facility] ([facility]) [address] [place], [address], 03/21/2024 14:36:39 03/10/20 24 03/11/2024 COMP. METAB OLIC PANEL (14) alkaline phosphatase 124 IU/L 44-121 above high normal Not Available [facility] ([facility]) [address] [place], [address], 03/21/2024 14:36:39 03/10/20 24 03/11/2024 COMP. METAB OLIC PANEL (14) AST (SGOT) 19 IU/L 0-40 normal Not Available [facility] ([facility]) [address] [place], [address], 03/21/2024 14:36:39 03/10/20 24 03/11/2024 COMP. METAB OLIC PANEL (14) ALT (SGPT) 19 IU/L 0-32 normal Not Available [facility] ([facility]) [address] [place], [address], 03/21/2024 14:36:39 03/10/20 24 03/11/2024 LIPID PANEL cholesterol, total 154 mg/dL 100-19 9 normal Not Available [facility] ([facility]) [address] [place], [address], 03/21/2024 14:36:40 03/10/20 24 03/11/2024 LIPID PANEL triglyceride s 125 mg/dL 0-149 normal Not Available [facility] ([facility]) [address] [place], [address], 03/21/2024 14:36:40 03/10/20 24 03/11/2024 LIPID PANEL HDL cholesterol 50 mg/dL >39 normal Not Available [facility] ([facility]) [address] [place], [address], 03/21/2024 14:36:40 03/10/20 24 03/11/2024 LIPID PANEL VLDL cholesterol kaden 22 mg/dL 5-40 Not Available [facility] ([facility]) [address] [place], [address], 03/21/2024 14:36:40 03/10/20 24 03/11/2024 LIPID PANEL LDL chol calc ([facility]) 82 mg/dL 0-99 Not Available [facility] ([facility]) [address] [facility], [place], [address], 03/21/2024 14:36:40 03/10/20 24 03/11/2024 LIPID PANEL LDL calc comment: ELECTROMECHANICAL INSPECTOR Not Available [facility] ([facility]) [address] [facility], [place], [address], 03/21/2024 14:36:40 03/10/20 24 03/21/2024 VITAM IN E vitamin E(alpha tocopherol) 8.9 mg/L 7.0-25 .1 Not Available [facility] ([facility]) [address] [facility], [place], [address], 03/21/2024 14:36:42 03/10/20 24 03/21/2024 VITAM IN E vitamin E(gamma tocopherol) 1.4 mg/L 0.5-5. 5 Refer ence inter vals for alpha and gamma -toco phero l deter mined from [facility] tion Exami natio n Surve y, 2004- 2005. Indiv idual s with alpha -toco phero l level s less than 5.0 mg/L are consi dered vitam in E defic ient. Not Available [facility] ([facility]) [address] [facility], [place], [address], 03/21/2024 14:36:42 03/10/20 24 03/11/2024 HEMOG LOBIN A1C hemoglobin A1C 7.1 % 4.8-5. 6 above high normal Predi abete s: 5.7 - 6.4 Diabe marleen: >6.4 Glyce raul contr ol for adult s with diabe marleen: <7.0 Not Available [facility] ([facility]) [address] [facility], [place], [address], 03/21/2024 14:36:43 03/10/20 24 03/11/2024 FOLAT E (FOLI C ACID) , SERUM folate (folic acid), serum >20.0 NG/mL >3.0 A serum folat e valarie ntrat ion of less than 3.1 ng/mL is consi dered to repre sent clini kaden defic iency . Not Available [facility] ([facility]) [address] [facility], [place], [address], 03/21/2024 14:36:44 03/10/20 24 03/21/2024 VITAM IN A, SERUM vitamin A 67.1 ug/dL 20.1-6 2.0 above high normal Refer ence inter vals for vitam in A deter mined from [facility] inter nal studi es. Indiv idual s with vitam in A less than 20 ug/dL are consi dered vitam in A defic ient and those with serum valarie ntrat ions less than 10 ug/dL are consi dered sever sixto defic ient. This test was devel oped and its perfo rmanc e greg cteri stics deter mined by [facility]. It has not been clear ed or appro audi by the Food and Drug Admin istra tion. Not Available [facility] ([facility]) [address] [facility], [place], [address], 03/21/2024 14:36:45 03/10/20 24 03/11/2024 VITAM IN D, 25-HY DROXY vitamin D, 25-hydroxy 59.0 NG/mL 30.0-1 00.0 Vitam in D defic iency has been defin ed by the Insti tute of Medic ine and an Endoc rine Socie ty pract ice guide line as a level of serum 25-OH vitam in D less than 20 ng/mL (1,2) . The Endoc rine Socie ty went on to [facility], [facility] er defin e vitam in D insuf ficie ncy as a level betwe en 21 and 29 ng/mL (2). 1. IOM (Inst itute of Medic ine). 2010. Dieta ry refer ence intak es for calci um and D. Won dominguez [place]: [facility] . 2. Hector varghese MF, Dick rivera [place], Evon off-F errar i PINEDA, et al. Evalu ation , treat ment, and preve ntion of vitam in D defic iency : an Endoc rine Socie ty clini kaden pract ice guide line. JCEM. 2010; 96(7) :1911 -30. Not Available [facility] ([facility]) [address] [facility], [place], [address], 03/21/2024 14:36:46 03/10/20 24 03/13/2024 VITAM IN B1 (THIA MINE) , BLOOD vit. B1, whole blood 136.1 nmol/ L 66.5-2 00.0 Not Available [facility] ([facility]) [address] [place], [address], 03/21/2024 14:36:48 03/10/20 24 03/14/2024 METHY LMALO ENRIQUE ACID, SERUM methylmaloni c acid, serum 255 nmol/ L 0-378 Not Available [facility] ([facility]) [address] [facility], [place], [address], 03/21/2024 14:36:49 03/10/20 24 03/11/2024 PREAL BUMIN prealbumin 25 mg/dL 12-34 Not Available [facility] ([facility]) [address] [place], [address], 03/21/2024 14:36:50 Result Notes None recorded. Problems Name Problem SNOMED Code Status Onset Date Resolution Date Notes Provider Name and Address Organization Details Recorded Time Heartburn 71686543 Active 2023 LLOYD Ayala [address], [place], [address] , [facility] [place] [facility] [place] 14:30:21 Disorder of function of stomach 887324167 Active 2024 LLOYD Ayala [address], [place], [address] , [place] - [facility] [place] [facility] [place] 5 08:50:42 Type 2 diabetes mellitus 62834685 Active 2024 LLOYD Ayala [address], [place], [address] , [place] [facility] [place] [facility] [place] 5 14:30:05 Cigarette smoker 61356648 Active 2024 LLOYD Ayala [address], [place], [address] , [place] - [facility] [place] [facility] [place] 5 14:15:30 Hypertensive disorder 34285176 Active 2022 LLOYD Ayala [address], [place], [address] , [place] [facility] [place] [facility] [place] 3 09:07:45 Type 2 diabetes mellitus without complication 983682579 Active 2022 LLOYD Ayala [address] , [place], [address] , [place] - [facility] & [place] 3 13:27:25 Chronic kidney disease stage 4 916231939 Active 2022 LLOYD Ayala [address] , [place], [address] , [place] - [facility] [place] [facility] [place] 3 13:27:27 Cobalamin deficiency 101214883 Active 2023 LLOYD Ayala [address], [place], [address] , [place] - [facility] & [place] 4 12:44:41 Intentional weight loss 489512092 Active 2023 LLOYD Ayala [address], [place], [address] , [place] - [facility] & [place] 4 12:44:50 Problem Notes None recorded. Procedures Surgical History Date Name Laterality Status Provider Name and Address Organization Details Recorded Time 03/10/20 23 laparoscopic sleeve gastrectomy completed Munira Edwards [place] - [facility] [place] 03/17/2023 08:41:08 04/27/19 00 Other completed Munira Edwards KATE - [facility] [place] 03/17/2023 08:26:12 04/27/18 98 Abdominal Surgery completed Munira LOVE - [facility] [place] 03/17/2023 08:26:12 section completed Shaye San [facility] [place] 07/21/2022 10:54:27 procedure on urinary bladder completed [address], [place], [address] [place] 07/24/2022 12:04:13 incision and drainage completed [address], [place], [address] [place] 07/24/2022 12:04:42 Car[facility] tunnel [facility] [place] 03/04/2023 07:45:37 Cataract Surgery completed Libby Varghese [facility] & [place] 03/10/2024 14:17:50 Imaging Results None recorded. Procedure Notes None recorded. Medical Equipment None Reported. Allergies No known drug allergies Medications Name Sig Start Date Stop Date Status Note LastModified by Organization Details LastModified Time cyclobenzap rine 10 mg tablet 09/23 completed Not Available Not Available Not Available furosemide 40 mg tablet Take 1 tablet every day by oral route. 06/16 completed Not Available Not Available Not Available atorvastati n 80 mg tablet 04/14 completed Not Available Not Available Not Available carvedilol 25 mg tablet 04/14 completed Not Available Not Available Not Available atorvastati n 20 mg tablet TAKE 1 TABLET BY MOUTH ONCE A DAY active Not Available Not Available No t Available carvedilol 12.5 mg tablet 09/23 completed Not Available Not Available Not Available torsemide 20 mg tablet 04/14 completed Not Available Not Available Not Available clindamycin HCl 300 mg capsule 03/04 completed Not Available Not Available Not Available trazodone 50 mg tablet TAKE 1 TO 2 TABLETS BY MOUTH AT BEDTIME NEEDED FOR SLEEP active Not Available Not Available No t Available triamcinolo ne acetonide 0.5 % topical cream 03/04 completed Not Available Not Available Not Available cetirizine 10 mg tablet active Not Available Not Available Not Available ofloxacin 0.3 % eye drops active Not Available Not Available Not Available fluconazole 150 mg tablet 04/14 completed Not Available Not Available Not Available urea 40 % topical cream active Not Available Not Available Not Available prednisone 20 mg tablet 12/20 completed Not Available Not Available Not Available quetiapine 200 mg tablet TAKE 1 TABLET BY MOUTH AT BEDTIME FOR ANXIETY active Not Available Not Available No t Available thiamine HCl (vitamin B1) 100 mg tablet 09/23 completed Not Available Not Available Not Available folic acid 400 mcg tablet 12/20 completed Not Available Not Available Not Available sulfamethox azole 800 mg-trimetho prim 160 mg tablet 07/24 completed Not Available Not Available Not Available omeprazole 40 mg capsule,del ayed release 09/17 completed Not Available Not Available Not Available carvedilol 3.125 mg tablet 09/23 completed Not Available Not Available Not Available ketorolac 0.5 % eye drops active Not Available Not Available Not Available famotidine 20 mg tablet Take 1 tablet twice a day by oral route for 30 days. 2024 active Not Available Not Available Not Avai lable prednisolon e acetate 1 % eye drops,suspe nsion 09/23 completed Not Available Not Available Not Available cyanocobala min (vit B-12) 500 mcg tablet 09/23 completed Not Available Not Available Not Available furosemide 80 mg tablet 04/14 completed Not Available Not Available Not Available amlodipine 10 mg tablet 06/16 completed Not Available Not Available Not Available cephalexin 500 mg capsule 03/04 completed Not Available Not Available Not Available pantoprazol e 40 mg tablet,jay yed release TAKE 1 TABLET BY MOUTH ONCE DAILY 03/17 completed Not Available Not Available Not Available cyanocobala min (vit B-12) 1,000 mcg/mL injection solution Inject 1 ml im once a week for 6 wks 12/20 completed Not Available Not Available Not Available losartan 25 mg tablet TAKE 1 TABLET BY MOUTH ONCE A DAY active Not Available Not Available No t Available Humulin 70/30 U-100 Insulin 100 unit/mL subcutaneou s suspension 04/14 completed Not Available Not Available Not Available Advair Diskus 250 mcg-50 mcg/dose powder for inhalation 03/04 completed Not Available Not Available Not Available BD Luer-Chuck Syringe 3 mL 25 gauge x 1 06/16 completed Not Available Not Available Not Available gabapentin 300 mg capsule TAKE 1 CAPSULE BY MOUTH THREE TIMES DAILY FOR 7 DAYS 03/17 completed Not Available Not Available Not Available omeprazole 20 mg capsule,del ayed release Take 1 capsule every day by oral route. 2024 active Not Available Not Available Not Avai lable mupirocin 2 % topical ointment 03/04 completed Not Available Not Available Not Available metoprolol succinate ER 25 mg tablet,exte nded release 24 hr TAKE ONE TABLET BY MOUTH ONCE A DAY active Not Available Not Available No t Available nystatin 100,000 unit/gram topical powder 12/20 completed Not Available Not Available Not Available irbesartan 150 mg tablet 03/04 completed Not Available Not Available Not Available polyethylen e glycol 3350 17 gram/dose oral powder MIX 1 CAPFUL (17GM) IN AN 8OZ BEVERAGE AND DRINK EVERY DAY active Not Available Not Available No t Available levofloxaci n 750 mg tablet 09/17 completed Not Available Not Available Not Available albuterol sulfate HFA 90 mcg/actuati on aerosol inhaler inhale 1 PUFF BY MOUTH EVERY 4 HOURS NEEDED FOR SHORTNESS OF BREATH OR wheezing active Not Available Not Available No t Available ketoconazol e 2 % topical cream APPLY UP TO 1 GRAM TO AFFECTED AREA TWICE DAILY DIRECTED 12/20 completed Not Available Not Available Not Available ondansetron 4 mg disintegrat ing tablet DISSOLVE 1 TABLET IN MOUTH EVERY 8 HOURS NEEDED FOR NAUSEA AND VOMITING FOR 4 DAYS 09/17 completed Not Available Not Available Not Available fluticasone propionate 50 mcg/actuati on nasal spray,suspe nsion 12/20 completed Not Available Not Available Not Available lamotrigine 100 mg tablet TAKE 1 AND 1/2 TABLETS BY MOUTH TWICE DAILY active Not Available Not Available No t Available irbesartan 300 mg tablet 04/14 completed Not Available Not Available Not Available loratadine 10 mg tablet active Not Available Not Available Not Available gentamicin 0.1 % topical ointment APPLY UP TO 2 GRAMS TO AFFECTED AREA TWICE DAILY DIRECTED. active Not Available Not Available No t Available nicotine (polacrilex ) 4 mg buccal lozenge 07/24 completed Not Available Not Available Not Available nicotine (polacrilex ) 2 mg buccal lozenge 09/23 completed Not Available Not Available Not Available nitrofurant oin monohydrate /macrocryst als 100 mg capsule 09/17 completed Not Available Not Available Not Available BD Ultra-Fine Mini Pen Needle 31 gauge x 16 06/16 completed Not Available Not Available Not Available Chest Congestion Relief 400 mg tablet 09/23 completed Not Available Not Available Not Available metronidazo le 1 % topical gel 03/04 completed Not Available Not Available Not Available chlorhexidi ne gluconate 0.12 % mouthwash active Not Available Not Available No t Available Humulin 70/30 U-100 Insulin 07/24 completed Not Available Not Available Not Available Celebrex 04/14 completed Not Available Not Available Not Available cholecalcif mendoza (vitamin D3) 25 mcg (1,000 unit) tablet TAKE 1 TABLET BY MOUTH ONCE A DAY 09/23 completed Not Available Not Available Not Available Lantus Solostar U-100 Insulin active Not Available Not Available Not Available diclofenac 1 % topical gel active Not Available Not Available Not Available Vitamin D3 50 mcg (2,000 unit) capsule TAKE ONE CAPSULE BY MOUTH ONCE A DAY FOR SUPPLEMEN T 09/23 completed Not Available Not Available Not Available OneTouch Verio test strips active Not Available Not Available Not Available lidocaine 5 % topical ointment 09/23 completed Not Available Not Available Not Available Victoza 3-Adrian 0.6 mg/0.1 mL (18 mg/3 mL) subcutaneou s pen injector 03/04 completed Not Available Not Available Not Available Farxiga 10 mg tablet TAKE 1 TABLET BY MOUTH ONCE A DAY 09/23 completed Not Available Not Available Not Available OneTouch Verio Flex Meter active Not Available Not Available Not Available Clenpiq 10 mg-3.5 gram-12 gram/160 mL oral solution 03/04 completed Not Available Not Available Not Available Dexcom G6 Sensor device 06/16 completed Not Available Not Available Not Available Dexcom G6 Financial Agent 06/16 completed Not Available Not Available Not Available Dexcom G6 Transmitter device 06/16 completed Not Available Not Available Not Available BD Veo Insulin Syringe Ultra-Fine 1 mL 31 gauge x 15/64 06/16 completed Not Available Not Available Not Available Lokelma 5 gram oral powder packet 03/04 completed Not Available Not Available Not Available Lokelma 10 gram oral powder packet 03/04 completed Not Available Not Available Not Available Bariatric Multivitami ns active Not Available Not Available Not Available OneTouch Delica Plus Lancet 33 gauge active Not Available Not Available Not Available Sutab 1.479-0.188 -0.225 gram tablet active Not Available Not Available Not Available Ozempic 1 mg/dose (4 mg/3 mL) subcutaneou s pen injector 09/17 completed Not Available Not Available Not Available Ozempic 0.25 mg or 0.5 mg (2 mg/3 mL) subcutaneou s pen injector 09/17 completed Not Available Not Available Not Available Vitals Date Recorded Body height Body temperature Body mass index (BMI) Body weight Heart rate Systolic blood pressure Diastolic blood pressure Provider Name and Address Organization Details Last Updated DateTime 4 165.1 cm 97.6 [degF] 29.8 kg/m2 64808.7 5 g 78 /min 167 mm[Hg] 95 mm[Hg] Abdulaziz Ramos-Lana pauline [place] - [facility] [place] 4 13:41:27 Date Recorded Body height Body temperature Heart rate Body mass index (BMI) Body weight Systolic blood pressure Diastolic blood pressure Provider Name and Address Organization Details Last Updated DateTime 5 165.1 cm 97.7 [degF] 71 /min 27 kg/m2 22342.6 8 g 151 mm[Hg] 91 mm[Hg] Makayla Bermudez [place] - [facility] [place] 5 13:56:43 Date Recorded Body height Heart rate Body temperature Body mass index (BMI) Body weight Systolic blood pressure Diastolic blood pressure Provider Name and Address Organization Details Last Updated DateTime 4 165.1 cm 68 /min 96.8 [degF] 27.8 kg/m2 27741.2 1 g 152 mm[Hg] 85 mm[Hg] [facility] & [place] 4 14:59:07 Date Recorded Body height Heart rate Body temperature Body mass index (BMI) Body weight Systolic blood pressure Diastolic blood pressure Provider Name and Address Organization Details Last Updated DateTime 4 165.1 cm 71 /min 98.2 [degF] 27.9 kg/m2 22245.7 2 g 188 mm[Hg] 94 mm[Hg] [facility] & [place] 4 14:18:05 Social History Question Answer Notes LastModified by [employer] ion Details LastModified Time Tobacco Smoking Status Former Smoker 1yr nonsmoker LLOYD Ayala [address] [facility], [place], [address], [facility] & [place] 07/24/2022 12:03:15 Are You Blind Or Do You Have Difficulty Seeing? No [email or web address] Information not available 03/17/2023 When Did You Quit Smoking? 1-5yearssi ncelastcig arette 1 Yr [email or web address] Information not available 06/16/2023 What Was The Date Of Your Most Recent Tobacco Screening? 10/23/2022 [email or web address] Information not available 03/17/2023 Are You Passively Exposed To Smoke? Yes [email or web address] Information not available 03/17/2023 How Many Years Have You Smoked Tobacco? 30 [email or web address] Information not available 03/17/2023 Sex: Unknown Functional Status Question Answer Note LastModified by Organizat ion Details LastModified Time Do you use any illicit or recreational drugs? No [email or web address] Information not available 07/21/2022 What is your level of alcohol consumption? None [email or web address] Information not available 07/21/2022 Do you or have you ever used smokeless tobacco? [id number] [email or web address] Information n ot available 03/17/2023 What is your exercise level? None [email or web address] Information not available 03/17/2023 Mental Status Question Answer Note LastModified by Organization D etails LastModified Time Do you feel stressed (tense, restless, nervous, or anxious, or unable to sleep at night)? [id number] [email or web address] Information not available 03/17/2023 Family History Relationship Description Onset Age of this Age Resolved Age Notes LastModified by Organization Details LastModified Time Father Obesity [email or web address] Not availa ble 07/21/2022 10:52:55 Father Diabetes mellitus [email or web address] Not available 2023 12:24:14 Father Cerebrovascu lar accident [email or web address] Not available 07/21/2022 10:53:27 Mother Obesity [email or web address] Not availa ble 07/21/2022 10:52:56 Mother Diabetes mellitus [email or web address] Not available 2023 12:24:14 Mother Hypertensive disorder [email or web address] Not available 10:53:14 Mother Cerebrovascu lar accident [email or web address] Not available 07/21/2022 10:53:27 Medical History Condition Response Other Y Kidney or Bladder Problems Y COPD Y Diabetes Y Anxiety Disorder Y Obesity Y Back Problems Y Hypertension Y Kidney Disease Y Gynecological HistoryNo gynecological history recorded. Obstetrics History GPAL:G 0 P 0 0 0 0 Immunizations Vaccine Type Date Status Note Provider Nam e and Address Organization Details Recorded Time influenza, unspecified formulation 03/05/2023 completed Libby wallace, [place] - [facility] [place] [facility] [place] 04/14/2023 11:08:17 influenza, unspecified formulation 02/23/2024 completed Libby wallace, [place] - [facility] [place] 03/10/2024 14:17:28 Past Encounters Encounter ID Performer Location Encounter Start Date Encounter Closed Date Diagnosis/Indication Diagnosis SNOMED-CT Code Diagnosis ICD10 Code Diagnosis Note [id number] [facility] [address] [facility] [address] [place] [address] 07/24/2022 08:11:43 07/24/2022 13:11:17 Obesity 164211504 E66.9 The patient will be scheduled for the following. Initial intake lab work, cardiac clearance, and EGD. All risks complicati ons and alternativ es of the upper endoscopy were discussed with the patient and agreed upon. These include but are not limited to, over sedation, bleeding, perforatio n. Patient will be educated by the surgical weight loss team regarding if any medical managed weight loss will be required and they will follow this according to their recommenda tions. patient will follow-up in office after all testing has been completed Hypertensive disorder 38 011535 I10 Chronic ki dney disease stage 4 937304779 N18.4 we will ask patient for nephrologi st support statement including max protein advisement Type 2 asim betes mellitus without complication 376836249 E11.9 Tobacco user 893652676 Z 72.0 Discussion at length today regarding the risks of tobacco use perioperat ively and the contraindi cation to use tobacco/ni cotine products. Specifical ly, in regards to weight loss surgery, the risk of poor staple line healing leading to postoperat cy complicati on including leak. Patient advised to stop all tobacco/ni cotine products 6 months prior to weight loss surgery. Perioperat cy testing requiremen t explained. Patient voices understand ing [id number] MARIAN ACKERMAN, RDN, LD [facility] [address] [place] [address] 08/22/2022 13:18:29 08/22/2022 14:52:53 Chronic kidney disease stage 4 857037432 N18.4 Patient says she will eventually need a kidney transplant but must lose weight to qualify Obesity 613698361 E66.9 Prescribin g supervised diet to monitor patient compliance with diet and exercise, intentions of WLS in the future [id number] MARIAN ACKERMAN, RDN, LD [facility] [address] [place] [address] 09/18/2022 13:41:02 09/18/2022 16:08:46 Hypertensive disorder 65586010 I10 HTN is a comorbidit y of morbid obesity and further indicates pt as a fit for WLS. Chronic ki dney disease stage 4 432758177 N18.4 Patient says she will eventually need a kidney transplant but must lose weight to qualify. Type 2 asim betes mellitus without complication 215674729 E11.9 T2DM is a comorbidit y of morbid obesity and further indicates pt as a fit for WLS. Obesity 124302403 E66.9 Prescribin g supervised diet to monitor patient compliance with diet and exercise, intentions of WLS in the future [id number] MARIAN KESSLER BS, RDN, LD [facility] [address] [facility] [address] [place] [address] 10/24/2022 12:56:12 10/24/2022 13:12:02 Chronic kidney disease stage 4 757428906 N18.4 Patient says she will eventually need a kidney transplant but must lose weight to qualify. Hypertensive disorder 38 516061 I10 HTN is a comorbidit y of morbid obesity and further indicates pt as a fit for WLS. Type 2 asim betes mellitus without complication 249251275 E11.9 T2DM is a comorbidit y of morbid obesity and further indicates pt as a fit for WLS. Obesity 518287577 E66.9 Prescribin g supervised diet to monitor patient compliance with diet and exercise, intentions of WLS in the future [id number] Phil Mars DO [facility] [address] [facility] [address] [facility] [place] [address] 03/04/2023 07:18:08 03/04/2023 13:25:31 Morbid obesity 248955456 E66.01 Pre-surger y evaluation 535940494 Z01.818 Postoperative pain 32028 9007 G89.18 Chronic ki dney disease stage 4 012719921 N18.4 Type 2 asim betes mellitus without complication 060082259 E11.9 Hypertensive disorder 38 121381 I10 [id number] LLOYD Ayala [facility] [address] [facility] [address] [facility] [place] [place] [address] 03/17/2023 08:07:05 03/17/2023 10:16:18 History of gastrectomy 365835869 Z90.3 Type 2 asim betes mellitus without complication 278196014 E11.9 Patient advised to continue to monitor blood sugars and discuss management with PCP/endocr inologist. Chronic ki dney disease stage 4 047134137 N18.4 Patient is to see her nephrologi today. We will give patient an order for BMP Mag and phosphorus and she can have done with any labs required from nephrologi . Hypertensive disorder 38 840941 I10 [id number] LLOYD Ayala [facility] [address] [facility] [address] [place] [address] 04/14/2023 10:56:55 04/14/2023 11:25:02 Hypertensive disorder 01795895 I10 Chronic ki dney disease stage 4 417193603 N18.4 nephrologi has limited her to 1.5 liter of fluid daily Type 2 asim betes mellitus without complication 307976598 E11.9 Patient advised to continue to monitor blood sugars and discuss management with PCP/endocr inologist. History of gastrectomy 427422358 Z90.3 Long discussion regarding expected p.o. tolerance. Advised patient to take small bites, chew well and eat slow. Advised upper GI if dysphagia persists. Given patient's chronic kidney disease she is not to have contrast thus we will wait on upper GI until absolutely necessary. Expect improvemen t of p.o. tolerance over the next 3-4 weeks. We discussed diet and the importance of adequate protein. Encouraged patient to continue focus on adequate protein/ca lories/hyd ration. Patient is to see dietitian today for typical 1 month postoperat cy dietary support.Co ntinue PPI and vitamins.E ncouraged routine exercise. Advised exercising such that maintain target HR x 20 min 3dy/wkFoll ow-up 2 months Patient is status post bariatric surgery and at increased risk for vitamin deficienci es and malnutriti on. Bariatric vitamin panel ordered today. Patient will be contacted to correct any vitamin deficienci es. At [facility] risk of nutritional deficit 049650156 Z91.89 [id number] MAYRA ANTONIO RDN, LD [facility] [address] [facility] [address] [place] [address] 04/14/2023 11:29:35 04/15/2023 10:11:28 History of bariatric surgical procedure 702276854 Z98.84 Discussed lifestyle modificati ons for optimal weight loss and nutrition Inadequate intake of energy 899399261 E46 Increase kcal to 800 kcal/day. Provided coupon for protein supplement that will assist with this. Advised to drink 1/2 since they contain 30 g protein/se rving and this is already 1/2 of her protein needs for the day. Chronic ki dney disease stage 4 691110186 N18.4 Recommends 60 g protein/da y (0.6 g/kg bw)Continu e with 50 oz fluid/day per nephrologi stMartin defer to nephrologi st for modificati ons with vitamin regime [id number] LLOYD Ayala [facility] [address] [place] [address] 06/16/2023 12:17:59 06/16/2023 14:20:30 Hypertensive disorder 25148415 I10 Borderline blood pressure in office today. Patient is to follow up with PCP. She states she has an appointmen t with her PCP tomorrow. Type 2 asim betes mellitus without complication 733654496 E11.9 Improvemen t status post weight loss. Patient is now off of insulin. We are checking A1c. Patient advised to continue to monitor blood sugars and discuss management with PCP/endocr inologist. Chronic ki dney disease stage [address] has limited her to 1.5 liter of fluid daily Intentiona l weight loss 013118099 R63.8 Patient is doing very well status post sleeve gastrectom y. Encouraged patient to continue focus on high-prote in diet. Encouraged continued exercise. We will have patient follow up in 3 months. History of gastrectomy 354733166 Z90.3 Advised qid intake 50% protein 900-1000 calories/d y less than 100 carbs/dyLo ng discussion today of InBody results including PBF(percen t body fat) SMM (skeletal muscle mass) Visceral fat level level BMR Segmental Fat Analysis and Segmental Lean Analysis.E ncouraged pt to take minimal calories as per BMR and to anticipate changes in SMM and PBF values not just total weight.Fol low-up with Repeat LINH in 3mth suggestedP atient is to continue daily PPIPatient is to continue vitamin supplement ationPatie nt is status post bariatric surgery and at increased risk for vitamin deficienci es and malnutriti on. Bariatric vitamin panel ordered today. Patient will be contacted to correct any vitamin deficienci es. Cobalamin deficiency 190 299427 E53.8 Patient is to continue vitamin supplement ation. We are rechecking bariatric lab panel today Serum ferr itin above reference range 715182195 R77.8 We are rechecking bariatric lab panel today [id number] LLOYD Ayala [facility] [address] [place] [address] 09/18/2023 13:24:17 09/18/2023 14:19:05 Chronic kidney disease stage [address] has limited her to 1.5 liter of fluid dailyPatie nt is seeing improvemen t of CKD since weight loss surgery. Encouraged patient to continue to follow with her kidney doctors. Type 2 asim betes mellitus without complication 709790977 E11.9 Improvemen t status post weight loss. Patient advised to continue to monitor blood sugars and discuss management with PCP/endocr inologist. Hypertensive disorder 38 565702 I10 Borderline blood pressure in office today. Patient is to follow up with PCP. Cobalamin deficiency 190 346067 E53.8 Patient is to continue vitamin supplement ation. We are rechecking bariatric lab panel today Intentiona l weight loss 635442149 R63.8 Patient is doing very well status post sleeve gastrectom y. Encouraged patient to continue focus on high-prote in diet. Encouraged continued exercise. We will have patient follow up in 3 months. History of gastrectomy 609901365 Z90.3 Advised qid intake 50% protein 1100 calories/d y less than 100 carbs/dyLo ng discussion today of InBody results including PBF(percen t body fat) SMM (skeletal muscle mass) Visceral fat level level BMR Segmental Fat Analysis and Segmental Lean Analysis.E ncouraged pt to take minimal calories as per BMR and to anticipate changes in SMM and PBF values not just total weight.Fol low-up with Repeat LINH in 3mth suggested Patient is status post bariatric surgery and at increased risk for vitamin deficienci es and malnutriti on. Bariatric vitamin panel ordered today. Patient will be contacted to correct any vitamin deficienci es. [facility] 970734936 Z91.89 [id number] MAYRA ANTONIO RDN, LD [facility] [address] [facility] [address] [place] [address] 09/18/2023 14:17:35 09/18/2023 15:04:08 Obesity 461339840 E66.9 1000 kcal/day60 g protein/da y Chronic ki dney disease stage 4 866202746 N18.4 improving statusReco mmends 60-70 g protein/da y (0.6 g/kg bw)Continu e with 50 oz fluid/day per nephrologi stWill defer to nephrologi st for modificati ons with vitamin regimeOk to do a few fries 1x/month as long as protein and kcal goals are met History of bariatric surgical procedure 396076405 Z98.84 Discussed lifestyle modificati ons for optimal weight loss and nutrition [id number] LLOYD Ayala [facility] [address] [facility] [address] [place] [address] 12/21/2023 14:45:22 12/21/2023 15:23:45 Hypertensive disorder 74776327 I10 Elevated blood pressure in office today. Patient is to follow up with PCP. Type 2 asim betes mellitus without complication 611178542 E11.9 Improvemen t status post weight loss. Patient advised to continue to monitor blood sugars and discuss management with PCP/endocr inologist. Cobalamin deficiency 190 248175 E53.8 Patient is to continue vitamin supplement ation. We are rechecking bariatric lab panel. Patient states she will have panel drawn next week when she is seen by PCP Chronic ki dney disease stage [address]18[address] has limited her to 1.5 liter of fluid dailyPatie nt is seeing improvemen t of CKD since weight loss surgery. Encouraged patient to continue to follow with her kidney doctors. Intentiona l weight loss 716874123 R63.8 Patient is doing very well status post sleeve gastrectom y. Encouraged patient to continue focus on high-prote in diet. Encouraged continued exercise. We will have patient follow up in 3 months. History of gastrectomy 984241055 Z90.3 Advised qid intake 50% protein 12-1300 calories/d y less than 100 carbs/dyLo ng discussion today of InBody results including PBF(percen t body fat) SMM (skeletal muscle mass) Visceral fat level level BMR Segmental Fat Analysis and Segmental Lean Analysis.E ncouraged pt to take minimal calories as per BMR and to anticipate changes in SMM and PBF values not just total weight.Fol low-up with Repeat LINH in 3mth suggested Patient is status post bariatric surgery and at increased risk for vitamin deficienci es and malnutriti on. Bariatric vitamin panel ordered today. Patient will be contacted to correct any vitamin deficienci es. [id number] LLOYD Ayala [facility] [address] [place] [address] 03/10/2024 14:09:25 03/10/2024 14:52:45 Type 2 diabetes mellitus without complication 987900723 E11.9 Improvemen t status post weight loss.Angelina antunez advised to continue to monitor blood sugars and discuss management with PCP/endocr inologist. Chronic ki dney disease stage [address]18[address] has limited her to 1.5 liter of fluid dailyPatijaqueline nt is seeing improvemen t of CKD since weight loss surgery.En couraged patient to continue to follow with her kidney doctors. Hypertensive disorder 38 655686 I10 Elevated blood pressure in office today. Patient is to follow up with PCP. Heartburn 99857606 R12 We will restart patient on omeprazole once daily. Patient may also take famotidine as needed. She is to report any worsening reflux symptoms Intentiona l weight loss 671168737 R63.8 Patient is doing very well status post sleeve gastrectom y. Encouraged patient to continue focus on high-prote in diet.Angelina antunez is to meet with dietitian today for typical 12 month postop dietary supportEnc ouraged continued exercise. We will have patient follow up in 3 months. History of gastrectomy 103654772 Z90.3 Advised qid intake 50% protein 1000 calories/d y less than 100 carbs/dyLo ng discussion today of InBody results including PBF(percen t body fat) SMM (skeletal muscle mass) Visceral fat level level BMR Segmental Fat Analysis and Segmental Lean Analysis.E ncouraged pt to take minimal calories as per BMR and to anticipate changes in SMM and PBF values not just total weight.Fol low-up with Repeat LINH in 3mth suggested Patient is status post bariatric surgery and at increased risk for vitamin deficienci es and malnutriti on. Bariatric vitamin panel ordered today. Patient will be contacted to correct any vitamin deficienci es. At [facility] risk of nutritional deficit 200483367 Z91.89 Cobalamin deficiency 190 280476 E53.8 Patient is to continue vitamin supplement ation. We are rechecking bariatric lab panel. Patient states she will have panel drawn next week when she is seen by PCP [id number] JAYME GUZMAN RD [facility] [address] [facility] [address] [place] [address] 03/10/2024 14:39:35 03/10/2024 15:07:26 Dietary management surveillance 895470493 Z71.3 [id number] LLOYD Ayala [facility] [address] [facility] [address] [place] [address] 09/23/2024 13:35:41 09/23/2024 14:27:13 Hypertensive disorder 44888556 I10 Elevated blood pressure in office today. Patient is to follow up with PCP. Type 2 asim betes mellitus 43432293 E11.22 Patient recently restarted on LantusPati ent advised to continue to monitor blood sugars and discuss management with PCP/endocr inologist. Chronic ki dney disease stage [address]18[address] has limited her to 1.5 liter of fluid dailyPatie nt is seeing improvemen t of CKD since weight loss surgery.En couraged patient to continue to follow with her kidney doctors. Cobalamin deficiency 190 254630 E53.8 Patient is to continue vitamin supplement ation. We are rechecking bariatric lab panel. We will contact patient to continue to manage deficiency Intentiona l weight loss 179675635 R63.8 Patient is doing very well status post sleeve gastrectom y. Encouraged patient to refocus on bariatric basics. Advised she track carbs calories and protein. Suggested 4 small meals daily. Advised 1000 calories daily and 80 g of protein dailyPatie nt is to meet with dietitian todayEncou raged continued exercise. We will have patient follow up in 3 months. History of gastrectomy 042701766 Z90.3 Advised qid intake 50% protein 1000 calories/d y less than 100 carbs/dyLo ng discussion today of InBody results including PBF(percen t body fat) SMM (skeletal muscle mass) Visceral fat level level BMR Segmental Fat Analysis and Segmental Lean Analysis.E ncouraged pt to take minimal calories as per BMR and to anticipate changes in SMM and PBF values not just total weight.Fol low-up with Repeat LINH in 3mth suggested Patient is status post bariatric surgery and at increased risk for vitamin deficienci es and malnutriti on. Bariatric vitamin panel ordered today. Patient will be contacted to correct any vitamin deficienci es. At [facility] risk of nutritional deficit 028289552 Z91.89 Heartburn 39146625 R12 We will have patient continue omeprazole 20 mg q.a.m. and famotidine 20 mg q.h.s.. She is to report any breakthrou gh reflux issues on this current regimen. Follow up 3 months Cigarette smoker 0959723 7 F17.210 Discussion at length today regarding the risks of tobacco use perioperat ively and the contraindi cation to use tobacco/ni cotine products. Advised smoking cessation Health Concerns Section Related Observation LastModified by Organization Detai ls LastModified Time None Recorded Concern Status LastModified by Organization Details LastModified Time None Recorded Advance Directives Directive None Recorded Payers Insurance Date Sequence Insurance Name Policy Number Policy Hernandez Covered Member ID Hernandez Member ID Guarantor Name 09/20/2024 1 [facility] (MEDICAID HMO) Melanie Mayo [id number] Melanie Healy Notes Date Note Type Note Provider Name and Address Organization Details Recorded Time 09/18/2023 text/html Patient presents for 6mth Post-Op Check s/p LSG 03/10/23Patient presents the office today for routine follow-up status post bariatric surgery. Patient doing well. Reports q.i.d. small meal intake. Reports 60g/dy protein intake and good hydration. Patient is not tracking calories well. She has seen very good results with weight loss. She has lost a total of 86 lb since surgery. This is a 10.8% body fat loss total. Current in body shows BMI 29.8 with 42% body fat skeletal muscle 54.9 lb which is 100% predicted. Basal metabolic rate 1387Taking routine vitamins as advised. Hx of vit E B12 deficiencyPMH HTN DM CKD4. Patient reports improvement of these comorbidities. She is now off Ozempic and insulin. No DM . 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 He states disease is stable and numbers are improving.Heartburn/ gastroesophageal reflux: controlled w famotidinePt Denies : abdominal pain, prandial issues Nausea, Vomiting, bowel or bladder issuesPt is happy with their quality of life after Weight loss Surgery. Patient reports increased mobility. She is now walking 3 miles daily. She states she has more drive to be active and involved in life. @3m th post op - Patient presents the office today for routine follow-up status post bariatric surgery. Patient doing well. Reports q.i.d. small meal intake. Reports >70g/dy protein intake and good hydration. Daily Calories 800-900Taking routine vitamins as advised. Hx of vit E B12 deficiency elevated ferritin on dec labsHeartburn/gastro esophageal reflux: denies on PPIPt Denies : abdominal pain, prandial issues Nausea, Vomiting, bowel or bladder issuesPMH HTN DM CKD4. Patient reports improvement of these comorbidities. She is nowoff HTN med and insulin. On Ozempic only DM.Total Weight loss 57 lb. In body today shows BMI 33.3 with 48.7% body fat basal metabolic rate 1375Pt is happy with their quality of life after Weight loss Surgery. Patient reports she is now walking 3 miles a day. Prior to weight loss surgery she was not tolerating ambulation well. 1mth post op -- Patient presents the office today for routine follow-up status post bariatric surgery. Patient doing well. Reports q.i.d. small meal intake. Reports 60/dy protein intake. 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 Patient reports Daily Calories 500Patient does reports some dysphagia as she has progress diet. She is tolerating 2-3 bites at a time. Tolerating stage I to well.Taking routine vitamins as advised.Heartburn/ga stroesophageal reflux: Controlled on PPIPt Denies : abdominal pain, Nausea, Vomiting, bowel or bladder issuesTotal Weight loss 42 lbPt is happy with their quality of life after Weight loss Surgery. 1wk post op --Patient was readmitted due to concern for DVT/PE. This was ruled out. She had CKD issues and kept overnight. Per hospitalist patient needs BMP Mag and phos check today in follow-up. She is done well since discharge. She reports 70 g of protein and 50 oz of fluids. She is not been taking insulin and states blood sugars have run 110. She is not seen manager pacu. She is appointment with her shore working supervisor later today.Patient is doing well. Taking recommended vitamins and PPI.Pt Denies : abdominal pain, prandial issues Nausea, Vomiting, bowel or bladder issuesPath benignPt is happy with their quality of life after Weight loss Surgery. LLOYD Ayala [address], [place], [address], [facility] [place] 09/18/2023 14:18:45 09/18/2023 text/html A: RDN met w/ pt for f/up s/p sleeve 03-10-23. Pt weight at MD Consult: 256.9#Current Weight: 179.2#Total Weight Change: -77.7# Inbody Reveals:BMR = 1387 kcalChange in SMM = +0.7#Change in PBF = -6.6% Notes on weight: desires to continue weight loss at this time Signs/SymptomsN/V/C/ D: Denies Pertinent Labs/Meds/Vitamin regimen: Bariatric MVI, D3. Noted CKDIV - shore working supervisor limited pt to 1.5 L/day (50 oz). Reports A1C was 6.7% Physical activity: walking in the AMs - 3.44 mi today and is slowly increasing this and planted a garden at her dad's house. Pt does water aerobics when it is too hot outside and does other indoor exercises Est. daily kcal intake: unsure; getting 35 g carbs/day Est. daily protein intake: 50-60 g Est. daily fluid intake: 50 oz Meal Frequency/Pattern: pt eats per fullness cues, including sneezing and feeling of fullness. Avoiding potatoes 2/2 K levels and deli meat. Has had taste changes. Eating turkey sausage that is low-sodium and doing ICBINB spray. Eating SF Jell-O with SF whipped cream, SF pudding, and Atkins foods. Avoids fast food. Airfries chicken with baked Doritos crushed on the outside. Eating CC and fruit for breakfast. Drinks: body armor drinks, oat or almond milk Foods Not Tolerated: whole milk Additional notes/concerns: has been 1 year since smoking a cigarette. Asking if it is ok to do 7 fries with meals when eating out occasionally. MAYRA ANTONIO RDN, LD [address], [place], [address], [place] [facility] - [place] 09/18/2023 15:05:58 12/21/2023 text/html Patient presents for 9mth Post-Op Check s/p LSG 03/10/23Patient presents the office today for routine follow-up status post bariatric surgery. Patient doing well. Reports q.i.d. small meal intake. Reports >70g/dy protein intake and good hydration. Calories - not tracking Walking for exercise.Taking routine vitamins as advised. Hx of vit E B12 deficiency past ferritin elevationPMH HTN DM [id number]/gastro esophageal reflux: controlled on famotidinePt Denies : abdominal pain, prandial issues Nausea, Vomiting, bowel or bladder issuesTotal Weight loss 90lb. In body today shows BMI 27.8 with 39.6% body fat basal metabolic rate 1357Pt is happy with their quality of life after Weight loss Surgery. @6mth post op - Patient presents the office today for routine follow-up status post bariatric surgery. Patient doing well. Reports q.i.d. small meal intake. Reports 60g/dy protein intake and good hydration. Patient is not tracking calories well. She has seen very good results with weight loss. She has lost a total of 86 lb since surgery. This is a 10.8% body fat loss total. Current in body shows BMI 29.8 with 42% body fat skeletal muscle 54.9 lb which is 100% predicted. Basal metabolic rate 1387Taking routine vitamins as advised. Hx of vit E B12 deficiencyPMH HTN DM CKD4. Patient reports improvement of these comorbidities. She is now off Ozempic and insulin. No DM . 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 He states disease is stable and numbers are improving.Heartburn/ gastroesophageal reflux: controlled w famotidinePt Denies : abdominal pain, prandial issues Nausea, Vomiting, bowel or bladder issuesPt is happy with their quality of life after Weight loss Surgery. Patient reports increased mobility. She is now walking 3 miles daily. She states she has more drive to be active and involved in life. @3mth post op - Patient presents the office today for routine follow-up status post bariatric surgery. Patient doing well. Reports q.i.d. small meal intake. Reports >70g/dy protein intake and good hydration. Daily Calories 800-900Taking routine vitamins as advised. Hx of vit E B12 deficiency elevated ferritin on dec labsHeartburn/gastro esophageal reflux: denies on PPIPt Denies : abdominal pain, prandial issues Nausea, Vomiting, bowel or bladder issuesPMH HTN DM CKD4. Patient reports improvement of these comorbidities. She is nowoff HTN med and insulin. On Ozempic only DM.Total Weight loss 57 lb. In body today shows BMI 33.3 with 48.7% body fat basal metabolic rate 1375Pt is happy with their quality of life after Weight loss Surgery. Patient reports she is now walking 3 miles a day. Prior to weight loss surgery she was not tolerating ambulation well. @1mth post op -- Patient presents the office today for routine follow-up status post bariatric surgery. Patient doing well. Reports q.i.d. small meal intake. Reports 60/dy protein intake. 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 Patient reports Daily Calories 500Patient does reports some dysphagia as she has progress diet. She is tolerating 2-3 bites at a time. Tolerating stage I to well.Taking routine vitamins as advised.Heartburn/ga stroesophageal reflux: Controlled on PPIPt Denies : abdominal pain, Nausea, Vomiting, bowel or bladder issuesTotal Weight loss 42 lbPt is happy with their quality of life after Weight loss Surgery. @1wk post op --Patient was readmitted due to concern for DVT/PE. This was ruled out. She had CKD issues and kept overnight. Per hospitalist patient needs BMP Mag and phos check today in follow-up. She is done well since discharge. She reports 70 g of protein and 50 oz of fluids. She is not been taking insulin and states blood sugars have run 110. She is not seen manager pacu. She is appointment with her shore working supervisor later today.Patient is doing well. Taking recommended vitamins and PPI.Pt Denies : abdominal pain, prandial issues Nausea, Vomiting, bowel or bladder issuesPath benignPt is happy with their quality of life after Weight loss Surgery. LLOYD Aayla [address], [place], [address], [facility] - [place] - [place] 12/21/2023 15:22:52 03/10/2024 text/html Patient presents for 12mth Post-Op Check s/p LSG 03/10/23Patient presents the office today for routine follow-up status post bariatric surgery. Patient doing well. Reports q.i.d. small meal intake. Patient reports 80 g of protein daily but states she has no longer doing protein shakes. Daily Calories 1200Taking routine vitamins as advised. Hx of B12 deficiency elevated ferritinPMH HTN DM CKD4 - patient states diabetes and CKD have both improved with weight loss.Heartburn/gastr oesophageal reflux: Patient reports breakthrough reflux symptoms on famotidine. She is requesting refill of omeprazole.Pt Denies : abdominal pain, prandial issues Nausea, Vomiting, bowel or bladder issuesTotal Weight loss 90 lb current BMI 27.9 with 39.1% body fat skeletal muscle mass 53.1 lb which is 96% predicted. Basal metabolic rate 1370Pt is happy with their quality of life after Weight loss Surgery. @9mth post op- Patient presents the office today for routine follow-up status post bariatric surgery. Patient doing well. Reports q.i.d. small meal intake. Reports >70g/dy protein intake and good hydration. Calories - not tracking Walking for exercise.Taking routine vitamins as advised. Hx of vit E B12 deficiency past ferritin elevationPMH HTN DM [id number]/gastro esophageal reflux: controlled on famotidinePt Denies : abdominal pain, prandial issues Nausea, Vomiting, bowel or bladder issuesTotal Weight loss 90lb. In body today shows BMI 27.8 with 39.6% body fat basal metabolic rate 1357Pt is happy with their quality of life after Weight loss Surgery. @6mth post op - Patient presents the office today for routine follow-up status post bariatric surgery. Patient doing well. Reports q.i.d. small meal intake. Reports 60g/dy protein intake and good hydration. Patient is not tracking calories well. She has seen very good results with weight loss. She has lost a total of 86 lb since surgery. This is a 10.8% body fat loss total. Current in body shows BMI 29.8 with 42% body fat skeletal muscle 54.9 lb which is 100% predicted. Basal metabolic rate 1387Taking routine vitamins as advised. Hx of vit E B12 deficiencyPMH HTN DM CKD4. Patient reports improvement of these comorbidities. She is now off Ozempic and insulin. No DM . 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 He states disease is stable and numbers are improving.Heartburn/ gastroesophageal reflux: controlled w famotidinePt Denies : abdominal pain, prandial issues Nausea, Vomiting, bowel or bladder issuesPt is happy with their quality of life after Weight loss Surgery. Patient reports increased mobility. She is now walking 3 miles daily. She states she has more drive to be active and involved in life. @3mth post op - Patient presents the office today for routine follow-up status post bariatric surgery. Patient doing well. Reports q.i.d. small meal intake. Reports >70g/dy protein intake and good hydration. Daily Calories 800-900Taking routine vitamins as advised. Hx of vit E B12 deficiency elevated ferritin on dec labsHeartburn/gastro esophageal reflux: denies on PPIPt Denies : abdominal pain, prandial issues Nausea, Vomiting, bowel or bladder issuesPMH HTN DM CKD4. Patient reports improvement of these comorbidities. She is nowoff HTN med and insulin. On Ozempic only DM.Total Weight loss 57 lb. In body today shows BMI 33.3 with 48.7% body fat basal metabolic rate 1375Pt is happy with their quality of life after Weight loss Surgery. Patient reports she is now walking 3 miles a day. Prior to weight loss surgery she was not tolerating ambulation well. @1mth post op -- Patient presents the office today for routine follow-up status post bariatric surgery. Patient doing well. Reports q.i.d. small meal intake. Reports 60/dy protein intake. 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 Patient reports Daily Calories 500Patient does reports some dysphagia as she has progress diet. She is tolerating 2-3 bites at a time. Tolerating stage I to well.Taking routine vitamins as advised.Heartburn/ga stroesophageal reflux: Controlled on PPIPt Denies : abdominal pain, Nausea, Vomiting, bowel or bladder issuesTotal Weight loss 42 lbPt is happy with their quality of life after Weight loss Surgery. @1wk post op --Patient was readmitted due to concern for DVT/PE. This was ruled out. She had CKD issues and kept overnight. Per hospitalist patient needs BMP Mag and phos check today in follow-up. She is done well since discharge. She reports 70 g of protein and 50 oz of fluids. She is not been taking insulin and states blood sugars have run 110. She is not seen manager pacu. She is appointment with her shore working supervisor later today.Patient is doing well. Taking recommended vitamins and PPI.Pt Denies : abdominal pain, prandial issues Nausea, Vomiting, bowel or bladder issuesPath benignPt is happy with their quality of life after Weight loss Surgery. LLOYD Ayala [address], [place], [address], [facility] - [facility] - [place] 03/10/2024 14:51:27 03/10/2024 text/html RDN met w/ pt fo r annual f/up s/p sleeve. Pt weight at MD Consult: 256.9#Current Weight: 167.5#Total Weight Change: 89.4# Notes on weight: desires continued weight loss at this time. Goal weight of 155#. Inbody measurements:Muscle mass%: 51.8 to 53.1Body fat% 39.6 to 39.1BMR: 1370 Signs/SymptomsN/V/C/ D: constipation, once every 3 days (does take medication to help her go to the bathroom) Meds and labs reviewed.Notes - MVI with iron, calcium, thiamine Physical activity: walking daily (2.5 hours) 3-7 miles Tracking meal intakes: using pen and paper Est. daily kcal intake: 1200 Est. daily protein intake: 70 grams (due to CKD, most recent GFR @ 22 Est. daily fluid intake: 42 oz ([facility] wants patient at 40 oz.) Meal Frequency/Pattern: 3x/day - tries not to snack Drinks: bubly, zero gatorade (mostly after walking), sugar free tea and water Foods Not Tolerated: none Additional notes/concerns: JAYME GUZMAN, RD [address], [place], [address], [place] [facility] - [place] 03/10/2024 15:07:08 09/23/2024 text/html Patient presents for 18mth Post-Op Check s/p LSG 03/10/23PMH HTN DM CKD4 review of chart shows patient has resumed smokingPatient presents the office today for routine follow-up status post bariatric surgery. Patient doing well. She admits she has fallen away from bariatric basics but recently has started to refocus. She is now getting 100g/dy protein intake and good hydration.Taking routine vitamins as advised. Hx of B12 deficiency, elevated ferritinHeartburn/ga stroesophageal reflux: Patient is currently needing omeprazole 20 mg q.a.m. and famotidine 20 mg q.h.s.. She states symptoms are well controlled with this regimen.Pt Denies : abdominal pain, prandial issues Nausea, Vomiting, bowel or bladder issuesPatient tells me PCP recently checked thyroid panel and is adjusting thyroid medication.Patient reports worsening diabetes and has been restarted on Lantus.Review of in body today shows BMI 27 with 41.5% body fat skeletal muscle mass 49.2 lb which is 90% predicted basal metabolic rate 1300Pt is happy with their quality of life after Weight loss Surgery. @12mth Feb 2024 OV -- Patient doing well. Reports q.i.d. small meal intake. Patient reports 80 g of protein daily but states she has no longer doing protein shakes. Daily Calories 1200Taking routine vitamins as advised. Hx of B12 deficiency elevated ferritinPMH HTN DM CKD4 - patient states diabetes and CKD have both improved with weight loss.Heartburn/gastr oesophageal reflux: Patient reports breakthrough reflux symptoms on famotidine. She is requesting refill of omeprazole.Pt Denies : abdominal pain, prandial issues Nausea, Vomiting, bowel or bladder issuesTotal Weight loss 90 lb current BMI 27.9 with 39.1% body fat skeletal muscle mass 53.1 lb which is 96% predicted. Basal metabolic rate 1370Pt is happy with their quality of life after Weight loss Surgery. LLOYD Ayala [address], [place], [address], [facility] - [facility] - [place] 09/23/2024 14:30:45 OBGyn Episode No OBEpisode recorded.
--- OUTSIDE RECORDS SUMMARY | 2024-09-30 16:41 | XMS_ITS | Encounter Summary ---
Author Organization Healthcare Address [address] [id number] Care Team Providers Care Application Administrator Name Role Phone Lynda Spencer MD Unavailable [phone] Dyllan Gil APRN Primary Care Provider [phone] Encounter Details Date Type Department Care Team (Late st Contact Info) Description 08/17/2024 Telephone [facility] [address] [facility] [address] [place] [address] Nikki Ross, RN HOSPITAL K[facility]NEY [id number] [address] [id number] Social History Tobacco Use Types Packs/Day Years [...] as of this encounter Miscellaneous Notes * Telephone Encounter - Nikki Ross RN - 08/17/2024 8:43 AM EDT LVM requesting a return call re toll relief operator contact information, advised pt this is the 3 rd call placed to pt requesting this information. Advised that mammogram is due 09/18/24 and needs to be completed before 12/20/24. Reminder letter mailed to pts home address. Office phone number provided forreturn call. documented in this encounter Plan of Treatment Upcoming Encounters Date Type Department Care Team (Late st Contact Info) Description 10/19/2024 10:40 AM EDT Office Visit [facility] Endocrinology [address] [place] [address] Makayla Bahena, SHELTER MONITOR [address] [facility] [address] [place] [address] 10/26/2024 9:45 AM EDT Office Visit [facility] [address] [place] [address] Munira Keen MD [address] [facility] [address] [place] [address] 11/16/2024 1:20 PM EDT Office Visit [facility] Nephrology, Bone & Mineral Metabolism [address] [facility], [address] [place] [address] Lynda Spencer MD [address] [facility] [address] [place] [phone] documented as of this encounter Visit Diagnoses Not on filedocumented in this encounter Additional Health Concerns Assessment Noted Time A fall risk assessment has been complete d for the patient 08/17/2024 3:29 PM EDT A Body Mass Index follow-up plan has been documented for the patient 08/17/2024 4:49 PM EDT documented as of this encounter Care Teams Application Administrator Relationship Specialty Start Date End Date Dyllan Gil APRN [address] [place] [address] PCP - General 06/11/22 Lynda Spencer MD [address] [place] [phone] Referring Physician Nephrology 06/09/22 documented as of this encounter
--- OUTSIDE RECORDS SUMMARY | 2024-09-30 16:41 | XMS_ITS | Encounter Summary ---
Author Organization Healthcare Address [address] [place] [address] Care Team Providers Care Digital Analytics Manager Name Role Phone Lynda Spencer MD Unavailable [phone] Dyllan Gil APRN Primary Care Provider [phone] Reason for Visit * Reason Comments Med Refill Encounter Details Date Type Department Care Team (Late st Contact Info) Description 03/25/2023 [facility] [address] [place] [address] Makayla Bahena APRN [address] [address] Social History Tobacco Use Types Packs/Day Years Used Date Smoking Tobacco: Former Cigarettes 2 30 0 06/12/1992 - 06/12/2022 Passive Smoke Exposure: Past Smokeless Tobacco: Never Alcohol Use Standard Drinks/Week Comments No 0 (1 standard drink = 0.6 oz pur e alcohol) PHQ-2 Answer Date Recorded Patient Health Questionnaire-2 Score 0 06/26/2022 PHQ-2A Answer Date Recorded Patient Health Questionnaire-2 [...] stairs? Answer Date of Assessment Author No 06/26/2022 9:32 AM EST * Does this person have difficulty dressing or bathing? Answer Date of Assessment Author No 06/26/2022 9:32 AM EST * Because of a physical, mental, or emotional condition, does this person have difficulty doing errands alone such as visiting a doctor's office or shopping? Answer Date of Assessment Author No 06/26/2022 9:32 AM EST documented as of this encounter Miscellaneous Notes * Telephone Encounter - Yehuda Galloway, PharmD - 03/26/2023 8:50 AM EST Per protocol, 1 medication(s), Humulin 70-30, has been refused due to: medication was discontinued documented in this encounter Plan of Treatment Upcoming Encounters Date Type Department Care Team (Late st Contact Info) Description 10/19/2024 10:40 AM EDT Office Visit [facility] Endocrinology [address] [place] [address] Makayla Bahena, BOILING TUB OPERATOR [address] [facility] [address] [place] [address] 10/26/2024 9:45 AM EDT Office Visit [facility] [address] [place] [address] Munira Keen MD [address] [facility] [address] [place] [address] 11/16/2024 1:20 PM EDT Office Visit [facility] Nephrology, Bone & Mineral Metabolism [address] [facility] [place] [address] Lynda Spencer MD [address] [facility] [address] [place] [address] documented as of this encounter Visit Diagnoses Not on filedocumented in this encounter Additional Health Concerns Assessment Noted Time A fall risk assessment has been complete d for the patient 03/09/2023 4:01 PM EST A Body Mass Index follow-up plan has been documented for the patient 03/24/2023 1:29 PM EST documented as of this encounter Care Teams Digital Analytics Manager Relationship Specialty Start Date End Date Dyllan Gil APRN [address] [place] [address] PCP - General 06/11/22 Lynda Spencer MD [address] [address] Referring Physician Nephrology 06/09/22 documented as of this encounter
--- OUTSIDE RECORDS SUMMARY | 2024-09-30 16:41 | XMS_ITS | Encounter Summary ---
Author Organization [facility] Address [address] [place] [address] Care Team Providers Care Orthotic/Prosthetic Clinician Name Role Phone Al Fischer MD Primary Care Provider [phone] Lynda Spencer MD Unavailable [phone] Dyllan Gil APRN Primary Care Provider [phone] Reason for Visit * Reason Comments Med Refill Encounter Details Date Type Department Care Team (Late st Contact Info) Description 08/21/2021 Refill [facility] Endocrinology [address] [place] [address] Makayla Bahena APRN [address] [facility] [address] [place] [address] Social History Tobacco Use Types Packs/Day Years Used Date Smoking Tobacco: Former Smokeless Tobacco: Never Alcohol Use Standard Drinks/Week Comments No 0 (1 standard drink = 0.6 oz pur e alcohol) Comments Unknown Sex and Gender Information Value Date Recorded Sex Assigned at Female 07/28/2022 2:53 PM EDT Legal Sex Female 8:17 PM EDT Gender Identity Female 07/28/2022 2:53 PM EDT Sexual Orientation Not on file documented as of this encounter Plan of Treatment Upcoming Encounters Date Type Department Care Team (Late st Contact Info) Description 10/19/2024 10:40 AM EDT Office Visit [facility] Endocrinology [address] [place] [address] Makayla Bahena, ENGINEERING SUPPLIES SALES [address] [place] [place] [address] 10/26/2024 9:45 AM EDT Office Visit [facility] [address] [place] [address] Munira Keen MD [address] [place] [address] 11/16/2024 1:20 PM EDT Office Visit [facility] Nephrology, Bone & Mineral Metabolism [address] [place] [address] Lynda Spencer MD [address] [place] [address] documented as of this encounter Visit Diagnoses Not on filedocumented in this encounter Additional Health Concerns Assessment Noted Time A fall risk assessment has been complete d for the patient 01/31/2021 2:02 PM EDT documented as of this encounter Care Teams Orthotic/Prosthetic Clinician Relationship Specialty Start Date End Date Al Fischer MD [address] [place] [address] PCP - General 09/07/20 06/10/22 Dyllan Gil, ENG[employer]ES [address] [place] [address] PCP - General 06/11/22 Lynda Spencer MD [address] [place] [address] Referring Physician Nephrology 06/09/22 documented as of this encounter
--- OUTSIDE RECORDS SUMMARY | 2024-09-30 16:41 | XMS_ITS ---
Author Organization [facility] Address [address] [place] [address] Care Team Providers Care Car Jockey Name Role Phone Lynda Spencer MD Unavailable Dyllan Gil APRN Primary Care Provider [phone] Transplant Episode Kidney Candidate [facility] ([place], [place]) - [facility], [facility] Center waitlisted on 12/24/2022 Marked as Inactive on 03/31/2024 Reason: Temporarily too Sick Kidney CoordinatorNikki Ross RN Fax: N/A Email: N/A Scores Score Value Updated Exceptions/Reas ons CPRA 29 02/02/2024 EPTS (Calc) 32 09/30/2024 Pala Organ Diagnosis Organ Primary Contributory Kidney Diabetes Mellitus - Type II Hype rtensive Nephrosclerosis Care Team Name Role Phone Fax Email Nikki Ross RN Kidney Coordinator [phone] N/A N/A Dyllan Gil APRN Primary Care Provider [phone] N/A Christine Rosado Product Safety Officer [phone] N/A N/A Lynda Spencer MD Referring Physician [phone] N/A Events Pre-Transplant Referred: 06/09/2022 Evaluation began: 07/04/2022 Committee: 07/02/2022 Center waitlisted: 12/24/2022
--- OUTSIDE RECORDS SUMMARY | 2024-09-30 16:41 | XMS_ITS | Encounter Summary ---
Author Organization Healthcare Address [address] [place] [address] Care Team Providers Care Air Quality Technician Name Role Phone Lynda Spencer MD Unavailable Dyllan Gil APRN Primary Care Provider [phone] Encounter Details Date Type Department Care Team (Late st Contact Info) Description 04/06/2024 Lab Requisition [facility] [address] [place] [address] Stacey Escamilla MD [address] [place] [address] Awaiting organ transplant status Social History Tobacco Use Types Packs/Day Years Used Date Smoking Tobacco: Former Cigarettes 2 30 0 06/12/1992 - 06/12/2022 Passive Smoke Exposure: Past Smokeless Tobacco: Never Comments:None smoker 30days Alcohol Use Standard Drinks/Week Comments No 0 (1 standard drink = 0.6 oz pur e alcohol) PHQ-2 Answer Date Recorded Patient Health Questionnaire-2 Score 1 02/10/2024 PHQ-2A Answer Date Recorded Patient Health Questionnaire-2 [...] stairs? Answer Date of Assessment Author No 06/11/2023 1:38 PM EST * Does this person have difficulty [...] Visit [facility] Endocrinology [address] [place] [address] Makayla Bahena, MAP COLORER [address] [facility] [address] [place] [address] 10/26/2024 9:45 AM EDT Office Visit [facility] [address] [place] [address] Munira Keen MD [address] [facility] [address] [place] [address] 11/16/2024 1:20 PM EDT Office Visit [facility] Nephrology, Bone & Mineral Metabolism [address], [address] [place] [address] Lynda Spencer MD [address] [place] [address] documented as of this encounter Procedures Procedure Name Priority Date/Time Associated Diagnosis Comments HLA ANTIBODY TESTING (LSA) Routine 04/01/2024 8:00 AM EST Awaiting organ transplant status documented in this encounter Results * HLA Antibody Testing (LSA) (04/01/2024 8:00 AM EST) Blood Venous blood specimen / Unknown 04/01/2024 8:00 AM EST 04/06/2024 10:56 AM EST us Stacey Escamilla MD LAB BLOOD ORDERABLES Final Resul t [facility] [address] documented in this encounter Visit Diagnoses Diagnosis Awaiting organ transplant status documented in this encounter Additional Health Concerns Assessment Noted Time A fall risk assessment has been complete d for the patient 03/03/2024 3:00 PM EST A Body Mass Index follow-up plan has been documented for the patient 03/03/2024 4:28 PM EST documented as of this encounter Care Teams Air Quality Technician Relationship Specialty Start Date End Date Dyllan Gil APRN [address] [place] [address] PCP - General 06/11/22 Lynda Spencer MD [address] [address] Referring Physician Nephrology 06/09/22 documented as of this encounter
--- OUTSIDE RECORDS SUMMARY | 2024-09-30 16:41 | XMS_ITS | Encounter Summary ---
Author Organization Healthcare Address [address] [place] [address] Care Team Providers Care Private Duty Rn Name Role Phone Lynda Spencer MD Unavailable [phone] Dyllan Gil APRN Primary Care Provider [phone] Encounter Details Date Type Department Care Team (Late st Contact Info) Description 02/05/2024 Lab Requisition [facility] [address] [place] [address] Stacey Escamilla MD [address] [place] [address] Awaiting organ transplant status Social History Tobacco Use Types Packs/Day Years Used Date Smoking Tobacco: Former Cigarettes 2 30 0 06/12/1992 - 06/12/2022 Passive Smoke Exposure: Past Smokeless Tobacco: Never Comments:None smoker 30days Alcohol Use Standard Drinks/Week Comments No 0 (1 standard drink = 0.6 oz pur e alcohol) PHQ-2 Answer Date Recorded Patient Health Questionnaire-2 Score 0 06/11/2023 PHQ-2A Answer Date Recorded Patient Health Questionnaire-2 [...] Description 10/19/2024 10:40 AM EDT Office Visit [facility] Endocrinology [address] [place] [address] Makayla Bahena, OPTICAL MANUFACTURING TECHNICIAN [address] [facility] [address] [place] [address] 10/26/2024 9:45 AM EDT Office Visit [facility] [address] [place] [address] Munira Keen MD [address] [facility] [address] [place] [address] 11/16/2024 1:20 PM EDT Office Visit [facility] Nephrology, Bone & Mineral Metabolism [address], [address] [place] [address] Lynda Spencer MD [address] [place] [address] documented as of this encounter Procedures Procedure Name Priority Date/Time Associated Diagnosis Comments HLA ANTIBODY TESTING (LSA) Routine 02/02/2024 2:37 PM EDT Awaiting organ transplant status documented in this encounter Results * HLA Antibody Testing (LSA) (02/02/2024 2:37 PM EDT) Blood Venous blood specimen / Unknown 02/02/2024 2:37 PM EDT 02/05/2024 10:10 AM EDT us Stacey Escamilla MD LAB BLOOD ORDERABLES Final Resul t [facility] [address] documented in this encounter Visit Diagnoses Diagnosis Awaiting organ transplant status documented in this encounter Additional Health Concerns Assessment Noted Time A fall risk assessment has been complete d for the patient 10/15/2023 3:13 PM EDT A Body Mass Index follow-up plan has been documented for the patient 12/23/2023 2:37 PM EDT documented as of this encounter Care Teams Private Duty Rn Relationship Specialty Start Date End Date Dyllan Gil APRN [address] [place] [address] PCP - General 06/11/22 Lynda Spencer MD [address] [place] [address] Referring Physician Nephrology 06/09/22 documented as of this encounter
--- OUTSIDE RECORDS SUMMARY | 2024-09-30 16:41 | XMS_ITS | Encounter Summary ---
Author Organization Healthcare Address [address] [place] [address] Care Team Providers Care Farm Equipment Engineer Name Role Phone Lynda Spencer MD Unavailable [phone] Dyllan Gil APRN Primary Care Provider [phone] Encounter Details Date Type Department Care Team (Late st Contact Info) Description 12/07/2023 Lab Requisition [facility] [address] [place] [address] Andrea Pierre MD [address] [place] [address] Awaiting organ transplant status Social [...] Description 10/19/2024 10:40 AM EDT Office Visit [facility] Endocrinology [address] [place] [address] Makayla Bahena, ROLLING MACHINE TENDER [address] [facility] [address] [place] [address] 10/26/2024 9:45 AM EDT Office Visit [facility] [address] [place] [address] Munira Keen MD [address] [facility] [address] [place] [address] 11/16/2024 1:20 PM EDT Office Visit [facility] Nephrology, Bone & Mineral Metabolism [address] [facility], [address] [place] [address] Lynda Spencer MD [address] [place] [address] documented as of this encounter Procedures Procedure Name Priority Date/Time Associated Diagnosis Comments HLA ANTIBODY TESTING (LSA) Routine 12/04/2023 12:23 PM EDT Awaiting organ transplant status documented in this encounter Results * HLA Antibody Testing (LSA) (12/04/2023 12:23 PM EDT) Blood Venous blood specimen / Unknown 12/04/2023 12:23 PM EDT 12/07/2023 9:53 AM EDT us Andrea Pierre MD LAB BLOOD ORDERABLES Final Res ult [facility] [address] documented in this encounter Visit Diagnoses Diagnosis Awaiting organ transplant status documented in this encounter Additional Health Concerns Assessment Noted Time A fall risk assessment has been complete d for the patient 10/15/2023 3:13 PM EDT A Body Mass Index follow-up plan has been documented for the patient 11/27/2023 10:13 AM EDT documented as of this encounter Care Teams Farm Equipment Engineer Relationship Specialty Start Date End Date Dyllan Gil APRN [address] [place] [address] PCP - General 06/11/22 Lynda Spencer MD [address] [place] [address] Referring Physician Nephrology 06/09/22 documented as of this encounter
--- OUTSIDE RECORDS SUMMARY | 2024-09-30 16:41 | XMS_ITS | Continuity of Care Document ---
Author Organization [facility]ariatrics and Adv Surg Address [address] [address] [place] [address] Care Team Providers Care Insulation Nozzleman Name Role Phone DIALLO PLAZA Primary Care Provider [phone] DEWEY TUTTLE, SANTHOSH Fire Hydrant Mechanic Assessment No assessment recorded. Plan of Treatment Reminders Order Date Submit Date Provider Last Modified By Organization Details Last Modified Time Details Appointments OV EST 20 2024 01:00P LLOYD Quintero Not available Not available Not available Lab CMP, serum or plasma 2024 025 [facility], [address], [address], [place], [address], 09/30/2024 16:13:14 CBC w/ auto diff 2024 025 [facility], [address], [address], [place], [address], 09/30/2024 16:13:13 prealbumi n, serum 2024 025 [facility], [address], [address], [place], [address], 09/30/2024 16:13:20 vitamin D, 25-hydrox y, total, serum 2024 025 [facility], [address], [address], [place], [address], 09/30/2024 16:13:17 iron + TIBC + ferritin, serum 2024 025 [facility], [address], [address], [place], [address], 09/30/2024 16:13:13 vitamin E, serum 2024 025 [facility], [address], [address], [place], [address], 09/30/2024 16:13:15 vitamin A (retinol) , serum 2024 025 [facility], [address], [address], [place], [address], 09/30/2024 16:13:16 folate, serum 2024 025 [facility], [address], [address], [place], [address], 09/30/2024 16:13:16 thiamine, QN, blood 2024 025 [facility], [address], [address], [place], [address], 09/30/2024 16:13:18 methylmal kuldip, QN, serum or plasma 2024 025 [facility], [address], [address], [place], [address], 09/30/2024 16:13:18 Referral None recorded. Procedures None recorded. Surgeries None recorded. Imaging None recorded. Medication Orders omeprazol e 20 mg capsule,d elayed release 2024 025 [facility], [address] [place], [id number], 09/23/2024 14:21:28 famotidin e 20 mg tablet 2024 025 [facility], [address] [address] [place], [id number], 09/23/2024 14:21:27 Patient TargetsNo targets recorded. Patient InstructionsNo instructions recorded. Reason for Referral None Reported. Problems Name Problem SNOMED Code Status Onset Date Resolution Date Notes Provider Name and Address Organization Details Recorded Time Heartburn 82535497 Active 2023 LLOYD Ayala [address], [place], [address] , [place] [facility] [place] & [place] 4 14:30:21 Disorder of function of stomach 676411870 Active [address], [place], [address] , [place] [facility] [place] & [place] 5 08:50:42 Type 2 diabetes mellitus 74600731 Active 2024 LLOYD Ayala [address], [place], [address] , [place] [facility] [place] & [place] 5 14:30:05 Cigarette smoker 41526536 Active [address], [place], [address] , [place] [facility] [place] & [place] 5 14:15:30 Hypertensive disorder 99324622 Active 2022 LLOYD Ayala [address], [place], [address] , [place] [facility] [place] & [place] 3 09:07:45 Type 2 diabetes mellitus without complication 758142769 Active [address], [place], [address] , [place] - [facility] [place] & [place] 3 13:27:25 Chronic kidney disease stage 4 591645808 Active 2022 LLOYD Ayala [address], [place], [address] , [place] [facility] [place] & [place] 13:27:27 Cobalamin deficiency 911943061 Active 2023 LLOYD Ayala [address], [place], [address] , [place] [facility] [place] & [place] 12:44:41 Intentional weight loss 974824543 Active 2023 LLOYD Ayala [address], [place], [address] , [place] [facility] [place] & [place] 12:44:50 Problem Notes None recorded. Procedures Surgical History Date Name Laterality Status Provider Name and Address Organization Details Recorded Time 03/10/20 23 laparoscopic sleeve gastrectomy completed Munira [place] - [facility] & [place] 03/17/2023 08:41:08 04/27/19 00 Other completed Munira LOVE - [facility] & [place] 03/17/2023 08:26:12 04/27/18 98 Abdominal Surgery completed Munira LOVE - [facility] & [place] 03/17/2023 08:26:12 section completed Shaye San [place] - [facility] & [place] 07/21/2022 10:54:27 procedure on urinary bladder completed [address], [place], [address], [place] [facility] [place] & [place] 07/24/2022 12:04:13 incision and drainage completed [address], [place], [address], [place] [facility] [place] & [place] 07/24/2022 12:04:42 Carpal tunnel surgery completed Adriana Montoya [place] - [facility] & [place] 03/04/2023 07:45:37 Cataract Surgery completed Libby Howell [place] - [facility] & [place] 03/10/2024 14:17:50 Imaging Results None recorded. Procedure [...] Ultra-Fine Mini Pen Needle 31 gauge x 3/16 06/16 completed Not Available Not Available Not [...] Available Not Available Not Available Dexcom G6 Hazardous Waste Material Technician 06/16 completed Not Available Not Available Not [...] Vitals Date Recorded Body height Body temperature Heart rate Body mass index (BMI) Body weight Systolic blood pressure Diastolic blood pressure Provider Name and Address Organization Details Last Updated DateTime 165.1 cm 97.7 [degF] 71 /min 27 kg/m2 50790.6 8 g 151 mm[Hg] 91 mm[Hg] Makayla Bermudez [facility] & [place] 13:56:43 Social History Question Answer Notes LastModified by Organizat ion Details LastModified Time Tobacco Smoking Status Former Smoker 1yr nonsmoker LLOYD Ayala [address] [facility], [place], [address], [facility] & [place] 07/24/2022 12:03:15 Are You Blind Or Do You Have Difficulty Seeing? No [email or web address] Information not available 03/17/2023 When Did You Quit Smoking? 1-5yearssi ncelastcig arette 1 Yr [email or web address] Information not available 06/16/2023 What Was The Date Of Your Most Recent Tobacco Screening? 10/23/2022 [email or web address] Information not available 03/17/2023 Are You Passively Exposed To Smoke? Yes [email or web address] Information not available 03/17/2023 How Many Years Have You Smoked Tobacco? 30 [email or web address] Information not available 03/17/2023 Sex: Unknown Functional Status Question Answer Note LastModified by Organizat ion Details LastModified Time Do you use any illicit or recreational drugs? No [email or web address] Information not available 07/21/2022 What is your level of alcohol consumption? None [email or web address] Information not available 07/21/2022 Do you or have you ever used smokeless tobacco? [id number] [email or web address] Information n ot available 03/17/2023 What is your exercise level? None [email or web address] Information not available 03/17/2023 Mental Status Question Answer Note LastModified by Organization D etails LastModified Time Do you feel stressed (tense, restless, nervous, or anxious, or unable to sleep at night)? [id number] [email or web address] Information not available 03/17/2023 Family History Relationship Description Onset Age of this Age Resolved Age Notes LastModified by Organization Details LastModified Time Father Obesity [email or web address] Not availa ble 07/21/2022 10:52:55 Father Diabetes mellitus [email or web address] Not available 2023 12:24:14 Father Cerebrovascu lar accident [email or web address] Not available 07/21/2022 10:53:27 Mother Obesity [email or web address] Not availa ble 07/21/2022 10:52:56 Mother Diabetes mellitus [email or web address] Not available 2023 12:24:14 Mother Hypertensive disorder [email or web address] Not available 10:53:14 Mother Cerebrovascu lar accident [email or web address] Not available 07/21/2022 10:53:27 Medical History Condition Response Diabetes Y Anxiety Disorder Y Other Y Obesity Y Back Problems Y Kidney or Bladder Problems Y Hypertension Y COPD Y Kidney Disease Y Gynecological HistoryNo gynecological history recorded. Obstetrics History GPAL:G 0 P 0 0 0 0 Immunizations Vaccine Type Date Status Note Provider Nam jaqueline and Address Organization Details Recorded Time influenza, unspecified formulation 03/05/2023 completed Libbykika Wh[place] null, [place] [facility] [place] & [place] 04/14/2023 11:08:17 influenza, unspecified formulation 02/23/2024 completed Libbykika [place] null, [place] [facility] [place] & [place] 03/10/2024 14:17:28 Past Encounters Encounter ID Performer Location Encounter Start Date Encounter Closed Date Diagnosis/Indication Diagnosis SNOMED-CT Code Diagnosis ICD10 Code Diagnosis Note [id number] LLOYD Ayala [facility] Bariatric s and Adv Surg [address] [facility] [address] [place] [address] 09/23/2024 13:35:41 09/23/2024 14:27:13 Hypertensive disorder 98242714 I10 Elevated blood pressure in office today. Patient is to follow up with PCP. Type 2 asim betes mellitus 09890182 E11.22 Patient recently restarted on LantusPati ent advised to continue to monitor blood sugars and discuss management with PCP/endocr inologist. Chronic ki dney disease stage [address] has limited her to 1.5 liter of fluid dailyPatie nt is seeing improvemen t of CKD since weight loss surgery.En couraged patient to continue to follow with her kidney doctors. Cobalamin deficiency 190 872164 E53.8 Patient is to continue vitamin supplement ation. We are rechecking bariatric lab panel. We will contact patient to continue to manage deficiency Intentiona l weight loss 209123510 R63.8 Patient is doing very well status post sleeve gastrectom y. Encouraged patient to refocus on bariatric basics. Advised she track carbs calories and protein. Suggested 4 small meals daily. Advised 1000 calories daily and 80 g of protein dailyPatie nt is to meet with dietitian todayEncou raged continued exercise. We will have patient follow up in 3 months. History of gastrectomy 900617412 Z90.3 Advised qid intake 50% protein 1000 [...] to correct any vitamin deficienci es. At [facility] risk of nutritional deficit 468260540 Z91.89 Heartburn 59153499 R12 We will have patient continue omeprazole 20 mg q.a.m. and famotidine 20 mg q.h.s.. She is to report any breakthrou gh reflux issues on this current regimen. Follow up 3 months Cigarette smoker 0264577 7 F17.210 Discussion at length today regarding the risks of tobacco use perioperat ively and the contraindi cation to use tobacco/ni cotine products. Advised smoking cessation Health Concerns Section Related Observation LastModified by Organization Detai ls LastModified Time None Recorded Concern Status LastModified by Organization Details LastModified Time None Recorded Payers Encounter Date Sequence Insurance Name Policy Number Policy Hernandez Covered Member ID Hernandez Member ID Guarantor Name 09/23/2024 1 [facility] (MEDICAID HMO) Melanie Mayo [id number] Melanie Healy Notes Date Note Type Note Provider Name and Address Organization Details Recorded Time 09/23/2024 text/html Patient presents for 18mth Post-Op Check s/p LSG 11/14/23PMH HTN DM CKD4 review of chart shows [...] quality of life after Weight loss Surgery. @[facility] Feb 2024 OV -- Patient doing well. [...] loss Surgery. LLOYD Ayala [address], [place], [address], [facility] - [place] & [place] 09/23/2024 14:30:45 OBGyn Episode No OBEpisode recorded.
--- OUTSIDE RECORDS SUMMARY | 2024-09-30 16:41 | XMS_ITS | Clinical Summary ---
Author Organization [facility] Address [address] [place] [address] Care Team Providers Care Deputy Administrator Name Role Phone Lynda Spencer MD Unavailable [phone] Dyllan Gil APRN Primary Care Provider [phone] Allergies Active Allergy Reactions Criticality Noted Date Comments Fish Oil Nausea Low 12/05/2022 Prednisolone Other - please docum ent in the comment field Low 12/05/2022 Medications cetirizine (ZyrTEC) 10 MG tablet 0 Active lamoTRIgine (LaMICtal) 100 MG tablet Take 1 tablet (100 mg) by mouth 2 (two) times a day. 0 Active omeprazole (PriLOSEC) [address] capsule Take 1 capsule (40 mg) by mouth 1 (one) time each day. 1 Active QUEtiapine (SEROquel) 200 MG tablet Take 1 tablet (200 mg) by mouth every night. 2 Active Lancets Thin miscIndications:T ype 2 diabetes mellitus with diabetic nephropathy, with long-term current use of insulin (CMS/[facility]) Use to check BG 2 times a day 60 each 3 Active glucose blood (OneTouch Verio) test stripIndications: Type 2 diabetes mellitus with diabetic nephropathy, with long-term current use of insulin (CMS/HCC) TEST BLOOD SUGAR 4 TIMES A DAY DIRECTED 120 strip 5 3 Active glucose blood test strip Please provide strips compatible with patient's meter and insurance 100 each 11 4 Active famotidine (Pepcid) 20 MG tablet 4 Active Blood Glucose Monitoring Suppl ([employer] Verio Flex System) w/Device kitIndications:Ty pe 2 diabetes mellitus with hyperglycemia, unspecified whether skilled nursing insulin use ([facility]) Use to test blood glucose daily DX E11.9 1 kit 4 Active Lancets misc Use 4x/day as directed 360 each 3 4 Active Blood Glucose Monitoring Suppl (Blood Glucose Monitor System) w/Device kit Test blood sugars twice a day. Dx E11.9 1 kit 5 Active dapagliflozin (Farxiga) 10 MG tablet Take 1 tablet (10 mg) by mouth daily. Active metoprolol succinate XL (Toprol-XL) 25 MG 24 hr tablet Take 1 tablet (25 mg) by mouth daily. Active polyethylene glycol (Miralax) 17 g packet Take 17 g by mouth daily. 30 packet 2 5 10/13/19 25 Active traZODone (Desyrel) 50 MG tablet Take 1-2 tablets by mouth at night as needed for sleep. 5 Active albuterol 108 (90 Base) MCG/ACT inhaler INHALE 1 PUFF BY MOUTH EVERY 4 HOURS NEEDED FOR SHORTNESS OF BREATH OR WHEEZING Active losartan (Cozaar) 25 MG tabletIndications :Essential hypertension Take 1 tablet by mouth daily. 90 tablet 3 5 08/18/19 26 Active cholecalciferol (Vitamin D-3) 25 MCG (1000 UT) tabletIndications :CKD (chronic kidney disease) stage 4, GFR 15-29 ml/min ([facility]) Take 1 tablet by mouth daily. 90 tablet 3 5 08/18/19 26 Active atorvastatin (Lipitor) 20 MG tablet TAKE ONE TABLET BY MOUTH ONCE A DAY 90 tablet 5 Active Active Problems Problem Noted Date Diagnosed Date Abnormal gait 07/20/2024 Seasonal allergic rhinitis 07/20/2024 UTI (urinary tract infection), uncomplicated Vertigo 07/20/2024 Abnormal electrocardiogram (ECG) (EKG) 4 Visual discomfort, unspecified 04/25/2024 Heartburn 03/10/2024 Combined forms of age-related cataract, right ey e 03/08/2024 Other visual disturbances 02/16/2024 Overweight 12/23/2023 Candidiasis of skin and nail 12/08/2023 Intracardiac thrombosis, not elsewhere classifie d 11/15/2023 Cerebral infarction, unspecified 11/14/2023 Cerebral ischemia 11/14/2023 Difficulty in walking, not elsewhere classified 11/14/2023 Other symptoms and signs involving the nervous s ystem 11/14/2023 Type 2 diabetes mellitus wit h proliferative diabetic retinopathy with macular edema, left eye 10/15/2023 Class 1 obesity due to exces s calories with serious comorbidity and body mass index (BMI) of 33.0 to 33.9 in adult 06/24/2023 Leg swelling 04/30/2023 Candidal intertrigo 04/30/2023 Cervical radicular pain 04/30/2023 COPD (chronic obstructive pulmonary disease) 07/2023 Daytime somnolence 04/30/2023 Depressed bipolar disorder 04/30/2023 Diastolic dysfunction 04/30/2023 Dyspnea 04/30/2023 Shortness of breath 04/30/2023 Edema of lower extremity 04/30/2023 Gastroesophageal reflux disease 04/30/2023 Gastroparesis diabeticorum 04/30/2023 Hidradenitis suppurativa 04/30/2023 Indigestion 04/30/2023 Acute uremia 04/30/2023 Keratosis 04/30/2023 Loud snoring 04/30/2023 Lymphedema 04/30/2023 Memory loss 04/30/2023 Muscle spasm 04/30/2023 Nausea and vomiting 04/30/2023 Neck pain 04/30/2023 Obesity (BMI 30-39.9) 04/30/2023 Onychomycosis 04/30/2023 Osteoarthritis 04/30/2023 Callus of foot 04/30/2023 Cellulitis of left leg 04/30/2023 Diabetic foot 04/30/2023 Furuncle of left lower extremity 04/30/2023 Incurved toenail 04/30/2023 Pre-ulcerative calluses 04/30/2023 Proliferative diabetic retinopathy 04/30/2023 Shoulder pain, left 04/30/2023 Stress incontinence 04/30/2023 Subungual hematoma of fifth toe of left foot 07/2023 Subungual hematoma of great toe of left foot 07/2023 HTN (hypertension) 04/30/2023 CKD (chronic kidney disease) 04/30/2023 Renal insufficiency 04/30/2023 Stage 3 chronic kidney disease 04/30/2023 Stage 4 chronic kidney disease 04/30/2023 Stage 5 chronic kidney disease 04/30/2023 Type 2 diabetes mellitus 04/30/2023 Abrasion, right lower leg, initial encounter 07/2023 Acute hypoxic respiratory failure 04/30/2023 Back pain 04/30/2023 Bilateral hip pain 04/30/2023 Chest pain 04/30/2023 Greater trochanteric bursitis of both hips 04/30 Low back pain 04/30/2023 Bilateral leg pain 04/30/2023 Bilateral sacroiliitis 04/30/2023 Blepharitis of eyelid of right eye 04/30/2023 CAD (coronary artery disease) 04/30/2023 CKD (chronic kidney disease) stage 5, GFR less than 15 ml/min 04/02/2023 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 023 Encounter for diabetic foot exam 03/24/2023 Vitreous hemorrhage of left eye 01/05/2023 Class 2 severe obesity due t o excess calories with serious comorbidity and body mass index (BMI) of 39.0 to 39.9 in adult 05/01/2022 Tobacco abuse 03/11/2021 Nephrotic range proteinuria 03/04/2021 Vitamin D deficiency 03/04/2021 Diabetic cataract 10/24/2020 Proliferative diabetic retin opathy of both eyes with macular edema associated with type 2 diabetes mellitus 10/24/2020 Type 2 diabetes mellitus wit h diabetic nephropathy, with long-term current use of insulin 10/08/2020 Neuropathy 10/08/2020 Nephropathy 10/08/2020 Essential hypertension 10/08/2020 Hyperlipidemia 10/08/2020 Retinopathy 10/08/2020 CKD (chronic kidney disease) stage 4, GFR 15-29 ml/min 08/30/2020 Proteinuria 04/22/2020 Hyperkalemia 01/05/2020 Encounters Date Type Department Care Team Description 08/29/2024 [facility] Nephrology, Bone & Mineral Metabolism [address], [address] [place] [address] Lynda Spencer MD 08/24/2024 1:40 PM EDT Ancillary Procedure [facility] [address] [place] [address] 08/24/2024 1:15 PM EDT Office Visit [facility] [address] [place] [address] Carolee Quiles MD 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 type 2 diabetes mellitus (Primary Dx); Diabetic cataract; Pseudophakia of right eye; Right posterior capsular opacification 08/24/2024 Travel 08/17/2024 4:00 PM EDT Office Visit [facility] Nephrology, Bone & Mineral Metabolism [address], [address] [place] [address] Lynda Spencer MD CKD (chronic kidney disease) stage 4, GFR 15-29 ml/min ([facility]) (Primary Dx); Essential hypertension 08/17/2024 Travel 08/17/2024 Telephone [facility] [address] [place] [phone] Nikki Ross, RN 08/11/2024 Telephone [facility] Nephrology, Bone & Mineral Metabolism [address], [address] [place] [address] Ramon Quiroz 08/03/2024 Telephone [facility] [address] [place] [phone] Nikki Ross RN 07/20/2024 3:45 PM EDT Procedure Visit [facility] [address] [place] [address] Munira Keen MD 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 type 2 diabetes mellitus (CMS/HCC) (Primary Dx); Vitreous hemorrhage of left eye ([facility]/HCC); Diabetic cataract (CMS/HCC) 07/20/2024 8:30 AM EDT Ancillary Procedure [facility] [address] [place] [phone] 07/20/2024 Travel 07/18/2024 Telephone [facility] [address] [place] [address] Sherry Fu, RN 07/18/2024 Telephone [facility] [address] [place] [address] Edi Macdonald MD H[facility] Same Day Appt/Overbook Request 07/13/2024 Telephone [facility] [address] [place] [address] Nikki Ross, RN 07/12/2024 Telephone [facility] [address] [place] [address] Nikki Ross, RN 07/12/2024 Telephone [facility] [address] [place] [address] Nikki Ross, RN 07/12/2024 Telephone [facility] Nephrology, Bone & Mineral Metabolism [address], [address] [place] [address] Lynda Spencer MD Med Refill 07/12/2024 Telephone [facility] [address] [place] [address] Nikki Ross, RN 07/11/2024 2:20 PM EDT Office Visit [facility] [address] [place] [address] Temitope Luque APRN End stage renal disease ([facility]) 07/11/2024 1:00 PM EDT Social Work [facility] [address] [place] [address] Christine Rosado End stage renal disease ([facility]) 07/11/2024 11:24 AM EDT - 07/11/2024 11:59 PM EDT Hospital Encounter [facility] [address] [place] [address] End stage renal disease (CMS/HCC) Discharge Disposition: Home or Self Care 07/11/2024 7:50 AM EDT - 07/11/2024 11:23 AM EDT Hospital Encounter [facility] [address] [place] [address] Discharge Disposition: Home or Self Care 07/11/2024 7:50 AM EDT - 07/11/2024 11:23 AM EDT Hospital Encounter Card[facility] Imaging [address] [place] [address] End stage renal disease (CMS/HCC) Discharge Disposition: Home or Self Care 07/11/2024 7:50 AM EDT - 07/11/2024 11:23 AM EDT Hospital Encounter Cardiac Imaging [address] [place] [address] End stage renal disease ([facility]/HCC) Discharge Disposition: Home or Self Care 07/11/2024 Telephone [facility] [address] [place] [address] Nikki Ross, RN 07/11/2024 Travel from Last 3 Months Immunizations Immunization Administration Dates Next Due Influenza, Unspecified 03/05/2023 Influenza, injectable, quadr ivalent, preservative free 03/05/2023,02/16/2020 Influenza, recombinant, quad rivalent, injectable, preservative free 03/24/2022 Influenza, seasonal, injectable 02/14/20 15,02/26/2011,01/21/2010,2006 Moderna COVID-19 Vaccine (Re d Cap) 12+ years 07/31/2020 Family History Medical History Relation Name Comments Cancer Father Phani Diabetes Father Phani Hypertension Father Phani Obesity Father Phani Other cancer Father Phani Stroke Father Phani Diabetes Maternal Grandfather Mickey Kidney disease Maternal Grandmother Diabetes Mother Jes Hypertension Mother Jes Obesity Mother Jes Cardiac disorder Other 1 Cataracts Other 2 Other cancer Other 3 Other cancer Other 4 Colon cancer Paternal Grandmother Relation Name Status Comments Father Phani Maternal Grandfather Mickey Maternal Grandmother Mother Jes Other 1 Other 2 Other 3 Other 4 Paternal Grandmother Social History Tobacco Use Types Packs/Day Years Used Date Smoking Tobacco: Former Cigarettes 2 30 0 06/12/1992 - 06/12/2022 Passive Smoke Exposure: Past Smokeless Tobacco: Never Tobacco Cessation:Counseling Given: Not Answered Comments:None smoker 30days Alcohol Use Standard Drinks/Week [...] PM EDT Sexual Orientation Not on file Last Filed Vital Signs Vital Sign Reading Time Taken Comments Blood Pressure 119/80 08/17/2024 3:22 PM EDT Pulse 80 08/17/2024 3:22 PM EDT Temperature 36.5 C (97.7 F) 08/17/2024 3:22 PM EDT Respiratory Rate 16 07/11/2024 1:36 PM EDT Oxygen Saturation 98% 08/17/2024 3:22 PM EDT Inhaled Oxygen Concentration - - Weight 72.1 kg (158 lb 15.2 oz) 08/17/2024 3:22 PM EDT Height 167.6 cm (5' 6 ) 08/17/2024 3:22 PM EDT Body Mass Index 25.66 08/17/2024 3:22 PM EDT Plan of Treatment Upcoming Encounters Date Type Department Care Team (Late st Contact Info) Description 10/19/2024 10:40 AM EDT [facility] [address] [place] [address] Makayla Bahena, PHARMACY TECH [address] [place] [address] 10/26/2024 9:45 AM EDT Office Visit [facility] [address] [place] [address] Munira Keen MD [address] [place] [address] 11/16/2024 1:20 PM EDT Office Visit [facility] Nephrology, Bone & Mineral Metabolism [address], [address] [place] [address] Lynda Spencer MD [address] [place] [address] Health Maintenance Due Date Last Done Comments [facility]-/Child/Adol SDOH Screenings 1974 Diabetes: Dental Exam 1984 [facility]- SDOH Screenings 1992 [facility]-Adult SDOH Screenings 1992 [facility]-DTaP,Tdap,and Td Vaccines (1 - Tdap) 1993 [facility]-Hepatitis B Vaccines (1 of 3 - 19+ 3-dose series) 1993 [facility]-Pneumococcal Vaccine: 50+ Years (1 of 2 - PCV) 1993 [facility]-Pap Smear 03/01/2004 03/01/2001 [facility]-Cervical Cancer Screening 03/01/2006 [facility]-HPV/Cotest 03/01/2006 03/01/2001 CT Colonography 2019 FIT-DNA 2019 FIT 2019 FOBT 2019 Sigmoidoscopy 2019 [id number] Vaccine (2 - 2023- season) 2023 07/31/2020 [facility]-Lung Cancer Screening 2024 [facility]-Zoster Vaccines (1 of 2) 2024 [facility]-Breast Cancer Screening 07/21/2024 07/21/2022 [facility]-Diabetes: Hemoglobin A1C 10/10/2024, 11/15/2023, 06/24/2023, Additional history exists [facility]-Depression Screening 07/11/2025 07/11/2024 Colonoscopy 05/03/2031 05/03/2021 [facility]-Colorectal Cancer Screening 05/03/2031 [facility]-Influenza Vaccine Completed 02/23/2024 , 03/05/2023, 03/05/2023, Additional history exists [facility]-HIV Screening Completed 07/11/2024, , 07/13/2023, Additional history exists [facility]-Hepatitis C Screening Completed 2024, 10/21/2023, 07/13/2023, Additional history exists [facility]-Obesity Intervention Completed 025, 08/17/2024, 07/20/2024, Additional history exists HPV Vaccines Aged Out No longer eligi ble based on patient's age to complete this topic [facility]-HIB Vaccines Aged Out No longer e ligible based on patient's age to complete this topic [facility]-Hepatitis A Vaccines Aged Out No longer eligible based on patient's age to complete this topic [facility]-IPV Vaccines Aged Out No longer e ligible based on patient's age to complete this topic [facility]-Rotavirus Vaccines Aged Out No lo nger eligible based on patient's age to complete this topic Procedures Procedure Name Priority Date/Time Associated Diagnosis [...] edema associated with type 2 diabetes mellitus INTRAVITREAL INJECTION, PHARMACOLOGIC AGENT - OS - LEFT EYE Routine 07/20/2024 4:39 PM EDT Vitreous hemorrhage of left eye (CMS/HCC) OCT, RETINA - OU - BOTH EYES Routine 07/20/2024 4:09 PM EDT 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 type 2 diabetes mellitus (CMS/HCC) Vitreous hemorrhage of left eye (CMS/HCC) HIV 1/2 ANTIBODY/ANTIGEN SCREEN WITH REFLEX TO HIV I/II DIFFERENTIATION Routine 07/11/2024 12:43 PM EDT End stage renal disease (CMS/HCC) RPR WITH REFLEX TO TITER (THOSE WITH KNOWN SYPHILIS) Routine 07/11/2024 12:43 PM EDT ESRD (end stage renal disease) (CMS/HCC) HIV 1/2 ANTIBODY/ANTIGEN SCREEN W/REFLEX TO HIV 1/2 ANTIBODY DIFFERENTIATION Routine 07/11/2024 12:43 PM EDT End stage renal disease (CMS/HCC) HEPATITIS C ANTIBODY W/REFLEX TO HCV QUANT PCR Routine 07/11/2024 12:43 PM EDT End stage renal disease (CMS/HCC) HEPATITIS B CORE TOTAL AB (IGG AND IGM) Routine 07/11/2024 12:43 PM EDT End stage renal disease (CMS/HCC) HEPATITIS B SURFACE ANTIGEN Routine 07/11/2024 12:43 PM EDT End stage renal disease (CMS/HCC) HEPATITIS B SURFACE ANTIBODY, QUANTITATIVE Routine 07/11/2024 12:43 PM EDT End stage renal disease (CMS/HCC) HLA ANTIBODY TESTING (LSA) Routine 07/11/2024 12:43 PM EDT End stage renal disease (CMS/HCC) SERUM DRUG SCREEN Routine 07/11/2024 12: 43 PM EDT End stage renal disease (CMS/HCC) NICOTINE AND COTININE METABOLITE, SERUM, QUANTITATIVE Routine 07/11/2024 12:43 PM EDT End stage renal disease (CMS/HCC) HEMOGLOBIN A1C Routine 07/11/2024 12:43 PM EDT End stage renal disease (CMS/HCC) CYTOMEGALOVIRUS (CMV) QUANTITATIVE PCR Routine 07/11/2024 12:43 PM EDT End stage renal disease (CMS/HCC) CBC W/O DIFFERENTIAL Routine 07/11/2024 12:43 PM EDT End stage renal disease (CMS/HCC) COMPREHENSIVE METABOLIC PANEL, PLASMA Routine 07/11/2024 12:43 PM EDT End stage renal disease ([facility]) QUANTIFERON TB GOLD PLUS Routine 07/11/2024 12:43 PM EDT End stage renal disease ([facility]) XR PANOREX Routine 07/11/2024 12:11 PM EDT End stage renal disease ([facility]) NM MYOCARDIAL SPECT REGADENOSON STRESS (MULTI STUDY) Routine 07/11/2024 10:30 AM EDT End stage renal disease ([facility]) ECHO, ADULT TRANSTHORACIC COMPLETE Routine 07/11/2024 9:29 AM EDT End stage renal disease ([facility]) MAMMOGRAPHY BREAST DIAGNOSTIC TOMOSYNTHESIS BILATERAL Routine 07/21/2022 CYTO DATA CONVERSION Routine 03/01/2001 12:00 AM EST from Last 3 Months or Most Recently Relevant to Health Maintenance Results * Intravitreal Drug Injection - OS [...] 2 MG/0.08ML Route: Intravitreal, Site: Left Eye [facility]: 18137-525-48, Lot: [id number], Expiration date: 11/19/2024 Post-op Post injection exam [...] dme, improved left eye (OS): trace DME Carolee Quiles MD OPHTH TOMOGRAPHY Final Res ult * Intravitreal Injection, Pharmacologic Agent - OS - Left Eye (07/20/2024 4:39 PM EDT) Anatomical Region Laterality Modality Head Other Narrative 07/20/2024 4:39 PM EDT Time Out 07/20/2024. 4:29 PM. Confirmed correct patient, procedure, site, and patient consented. Anesthesia Topical anesthesia was used. Anesthetic medications included Proparacaine 0.5%. Procedure Preparation included 5% betadine to ocular surface. A 30 gauge needle was used. Injection: 0.05 mL Bevacizumab 2.75 MG/0.11ML Route: Intravitreal, Site: Left Eye [facility]: [id number], Lot: [id number], Expiration date: 08/04/2024 Post-op Post injection exam found visual acuity of at least counting fingers. The patient tolerated the procedure well. There were no complications. The patient received written and verbal post procedure care education. Post injection medications were not given. Munira Keen MD OPHTH CLINIC PROCEDURE S Final Result * OCT, Retina - OU - Both Eyes (07/20/2024 4:09 PM EDT) Anatomical Region Laterality Modality Head Optical Coherenc e Tomography Narrative 07/20/2024 4:09 PM EDT Right Eye Quality was good. Scan locations included subfoveal. Progression has been stable. Left Eye Quality was poor. Notes right eye (OD): stable non ci dme left eye (OS): unable Result [facility] Munira Keen MD OPHTH TOMOGRAPHY Final Result * HEPATITIS B SURFACE ANTIBODY, QUANTITATIVE (07/11/2024 12:43 PM EDT) Pathologist [facility] Hepatitis B Surface Antibody, Quantitative <8.00 NonReactiv e: <8, Grayzone: 8 - <12, Reactive: >= 12 mIU/mL 07/11/2024 2:[address] [facility] Comment: Nonreactive. Individual is considered not immune to HBV infection. Blood Venous blood specimen / Unknown Venipuncture / Unknown 07/11/2024 12:43 PM EDT 07/11/2024 1:29 PM EDT Result [facility] Stacey Escamilla MD LAB BLOOD ORDERABLES Final Resul t Performing Organization Address City/State/[facility] Co de Phone Number [facility] [address] [place] [address] * Cytomegalovirus (CMV) Quantitative PCR (07/11/2024 12:43 PM EDT) Pathologist [facility] Cytomegalovirus (CMV) Quantitative Interpretation Not Detected Not Detected 07/13/2024 6:[address] [facility] Blood Venous blood specimen / Unknown Venipuncture / Unknown 07/11/2024 12:43 PM EDT 07/11/2024 1:[address] [facility] - 07/13/2024 6:11 AM EDT The Hebert M2000 CMV test is a Real Time in vitro nucleic acid amplification test for the quantitation of Cytomegalovirus (CMV) DNA in human plasma in CMV infected individuals. It is intended to quantify CMV in patients who are infected with this virus. The dynamic range for this test is log10 = 1.70 to 8.19 and/or 50 to 156,000,000 IU/mL. The limit of detection (LOD) for this assay is 31.20 IU/mL and the limit of quantitation (LOQ) is 50 IU/mL. This assay is FDA approved for clinical use. Result [facility] Stacey Escamilla MD LAB BLOOD ORDERABLES Final Resul t Performing Organization Address City/State/[facility] Co de Phone Number [facility] [address] [place] [address] * HIV 1 & 2 Antibody/Antigen Screen (07/11/2024 12:43 PM EDT) Pathologist [facility] HIV 1 & 2 Antibody/Antigen Screen Non Reactive Non Reactive 07/11/2024 2:[address] [facility] Comment:Screening for HIV 1 & 2 antibodies, and P24 antigen is NONREACTIVE. No confirmatory testing is required. Blood Venous blood specimen / Unknown Venipuncture / Unknown 07/11/2024 12:43 PM EDT 07/11/2024 1:29 PM EDT us Stacey Escamilla MD LAB BLOOD ORDERABLES Final Resul t Performing Organization Address [facility] Co de Phone Number [facility] [address] [place] [address] * HLA Antibody Testing (LSA) (07/11/2024 12:43 PM EDT) Blood Venous blood specimen / Unknown Venipuncture / Unknown 07/11/2024 12:43 PM EDT 07/11/2024 1:21 PM EDT us Stacey Escamilla MD LAB BLOOD ORDERABLES Final Resul t Performing Organization Address [facility] Co de Phone Number [facility] [address] [place] [address], [place] * Hepatitis C Antibody (07/11/2024 12:43 PM EDT) Pathologist [facility] Hepatitis C Antibody Negative Negative 07/11/2024 2:[address] [facility] Blood Venous blood specimen / Unknown Venipuncture / Unknown 07/11/2024 12:43 PM EDT 07/11/2024 1:29 PM EDT us Stacey Escamilla MD LAB BLOOD ORDERABLES Final Resul t Performing Organization Address [facility] Co de Phone Number [facility] [address] [place] [address] * Serum Drug Screen (07/11/2024 12:43 PM EDT) 9 Carboxy THC <5 <5 ng/mL 07/16/2024 4:[address] [facility] Alprazolam <5 <5 ng/mL 07/16/2024 4:[address] [facility] Amphetamine <10 <10 ng/mL 07/16/2024 4:[address] [facility] Benzolyecgonine <20 <20 ng/mL 4:[address] [facility] Buprenorphine <1.0 <1.0 ng/mL 07/16/2024 4:[address] [facility] Butalbital <50 <50 ng/mL 07/16/2024 4:[address] [facility] Clonazepam <5 <5 ng/mL 07/16/2024 4:[address] [facility] Codeine <5 <5 ng/mL 07/16/2024 4:[address] [facility] Diazepam <5 <5 ng/mL 07/16/2024 4:[address] [facility] Fentanyl <1 <1 ng/mL 07/16/2024 4:[address] [facility] Hydrocodone <2 <2 ng/mL 07/16/2024 4:[address] [facility] Hydromorphone <5 <5 ng/mL 07/16/2024 4:[address] [facility] Lorazepam <5 <5 ng/mL 07/16/2024 4:[address] [facility] MDA <10 <10 ng/mL 07/16/2024 4:[address] [facility] MDMA <10 <10 ng/mL 07/16/2024 4:[address] [facility] Meperidine <5 <5 ng/mL 07/16/2024 4:[address] [facility] Methadone <10 <10 ng/mL 07/16/2024 4:[address] [facility] Methadone Metabolite <10 <10 ng/mL 06/26 4:[address] [facility] Methamphetamine <10 <10 ng/mL 4:[address] [facility] Midazolam <5 <5 ng/mL 07/16/2024 4:[address] [facility] Morphine <2 <2 ng/mL 07/16/2024 4:[address] [facility] Norbuprenorphine <5 <5 ng/mL 07/17/19 4:[address] [facility] Nordiazepam <10 <10 ng/mL 07/16/2024 4:[address] [facility] Oxazepam <5 <5 ng/mL 07/16/2024 4:[address] [facility] Oxycodone <2 <2 ng/mL 07/16/2024 4:[address] [facility] Oxymorphone <2 <2 ng/mL 07/16/2024 4:[address] [facility] Phenobarbital <50 <50 ng/mL 07/16/2024 4:[address] [facility] Temazepam <5 <5 ng/mL 07/16/2024 4:[address] [facility] Tramadol <20 <20 ng/mL 07/16/2024 4:[address] [facility] Blood Venous blood specimen / Unknown Venipuncture / Unknown 07/11/2024 12:43 PM EDT 07/11/2024 1:[address] [facility] - 07/16/2024 4:09 PM EDT Test performed by LC-MS/MS at the [facility]. This test was developed and its performance characteristics determined by [facility]. It has not been cleared or approved by the FDA. The laboratory is regulated under CLIA as qualified to perform high-complexity testing. This test is used for clinical purposes. us Stacey Escamilla MD LAB BLOOD ORDERABLES Final Resul t [facility] [address] [place] [address] * (ABNORMAL) Nicotine Cotinine Metabolite (07/11/2024 12:43 PM EDT) [facility] NICOTINE 8(H) <5 ng/mL 07/14/2024 3:[address] [facility] Cotinine 232(H) <5 ng/mL 07/14/2024 3:[address] [facility] Blood Venous blood specimen / Unknown Venipuncture / Unknown 07/11/2024 12:43 PM EDT 07/11/2024 1:[address] [facility] - 07/14/2024 3:03 PM EDT Testing performed by LC-MS/MS at the [facility]/Toxicology Laboratory. This test was developed and its performance characteristics determined by [facility]. This assay has not been cleared by the FDA. The laboratory is regulated under CLIA as qualified to perform high-complexity testing. This test is used for clinical purposes. Stacey Escamilla MD LAB BLOOD ORDERABLES Final Resul t Performing Organization Address City/[facility]/ZIP Co de Phone Number [facility] [address] [place] [address] * Hepatitis B Core Total Antibody IgG,IgM (07/11/2024 12:43 PM EDT) [facility] Hepatitis B Core Total Antibody IgG,IgM Negative Negative 07/11/2024 2:40 PM EDT [facility] Blood Venous blood specimen / Unknown Venipuncture / Unknown 07/11/2024 12:43 PM EDT 07/11/2024 1:29 PM EDT Stacey Escamilla MD LAB BLOOD ORDERABLES Final Resul t [facility] [address] [place] [address] * Quantiferon TB Gold (07/11/2024 12:43 PM EDT) [facility] Quantiferon TB Gold Plus Result Negative Negative 07/12/2024 3:[address] [facility] TB Nill Value 0.0510 IU/mL 07/12/2024 3:[address] [facility] TB Antigen 1 0.0375 IU/mL 07/12/2024 3:[address] [facility] TB Antigen 2 0.0159 IU/mL 07/12/2024 3:[address] [facility] TB Mitogen 9.949 IU/mL 07/12/2024 3:[address] [facility] Blood Venous blood specimen / Unknown Venipuncture / Unknown 07/11/2024 12:43 PM EDT 07/11/2024 1:[address] [facility] - 07/12/2024 3:30 PM EDT Responses to the Mitogen positive control and occasionally to TB antigen can be above the assay range. For calculation purposes: IFN-gamma values > 10 IU/mL are handled as 10 IU/mL. us Stacey Escamilla MD LAB BLOOD ORDERABLES Final Resul t Performing Organization Address City/[facility]/ZIP Co de Phone Number [facility] [address] [place] [address] * RPR With Reflex to Titer (Those With Known Syphilis) (07/11/2024 12:43 PM EDT) Rapid Plasma Reagin Nonreactive Non Reactive 07/12/2024 1:[address] [facility] Blood Venous blood specimen / Unknown Venipuncture / Unknown 07/11/2024 12:43 PM EDT 07/11/2024 1:29 PM EDT us Stacey Escamilla MD LAB BLOOD ORDERABLES Final Resul t [facility] [address] [place] [address] * Hepatitis B Surface Antigen (07/11/2024 12:43 PM EDT) Hepatitis B Surf Antigen Negative Negative 07/11/2024 2:[address] [facility] Blood Venous blood specimen / Unknown Venipuncture / Unknown 07/11/2024 12:43 PM EDT 07/11/2024 1:29 PM EDT us Stacey Escamilla MD LAB BLOOD ORDERABLES Final Resul t [facility] [address] [place] [address] * (ABNORMAL) CBC W/O Differential (07/11/2024 12:43 PM EDT) WBC Count 9.37 3.70 - 10.30 10*3/uL LAB HEMATOLOGY METHOD 07/11/2024 1:[address] [facility] RBC Count 4.61 3.90 - 5.20 10*6/uL LAB HEMATOLOGY METHOD 07/11/2024 1:[address] [facility] HGB 13.5 11.2 - 15.7 g/dL LAB HEMATOLOGY METHOD 07/11/2024 1:[address] [facility] HCT 42.8 34.0 - 45.0 % LAB HEMATOLOGY METHOD 07/11/2024 1:[address] [facility] Platelet Count 189 155 - 369 10*3/uL LAB HEMATOLOGY METHOD 07/11/2024 1:[address] [facility] MCV 93 79 - 98 fL LAB HEMATOLOGY METHOD 07/11/2024 1:[address] [facility] MCH 29.3 26.0 - 32.0 pg LAB HEMATOLOGY METHOD 07/11/2024 1:[address] [facility] MCHC 31.5 30.7 - 35.5 g/dL LAB HEMATOLOGY METHOD 07/11/2024 1:[address] [facility] RDW 13.0 11.5 - 14.5 % LAB HEMATOLOGY METHOD 07/11/2024 1:[address] [facility] MPV 13.0(H) 8.8 - 12.5 fL LAB HEMATOLOGY METHOD 07/11/2024 1:[address] [facility] nRBC 0.0 <=0.0 per 100 WBCs LAB HEMATOLOGY METHOD 07/11/2024 1:[address] [facility] Blood Venous blood specimen / Unknown Venipuncture / Unknown 07/11/2024 12:43 PM EDT 07/11/2024 1:22 PM EDT Stacey Escamilla MD LAB BLOOD ORDERABLES Final Resul t Performing Organization Address [facility]/ZIP Co de Phone Number [facility] [address] [place] [address] * (ABNORMAL) Hemoglobin A1c (07/11/2024 12:43 PM EDT) Hemoglobin A1c 7.9(H) <5.7 % 07/11/2024 1:[address] [facility] Blood Venous blood specimen / Unknown Venipuncture / Unknown 07/11/2024 12:43 PM EDT 07/11/2024 1:[address] [facility] - 07/11/2024 1:43 PM EDT HA1C Interpretive Data: Diagnosis of Diabetes: Diabetic > or = 6.5% Pre-diabetic 5.7 to 6.4% Non-diabetic < or = 5.6% Glycemic Targets for Type I and Type II Diabetics: Non- Adults <7.0% Adults <6.0% Children and Adolescents <7.5% Source: [place] [employer]. Standards of medical care in diabetes,2017. Diabetes Care.2017:40 (suppl 1):S1-S135. HbA1c assay performed by an ion-exchange chromatography method that is certified traceable to the DCCT. us Stacey Escamilla MD LAB BLOOD ORDERABLES Final Resul t Performing Organization Address [facility] Co de Phone Number [facility] [address] [place] [address] * (ABNORMAL) Comprehensive metabolic panel (07/11/2024 12:43 PM EDT) Glucose, Plasma 171(H) 74 - 99 mg/dL 07/11/2024 2:[address] [facility] BUN, Plasma 39(H) 7 - 21 mg/dL 07/11/2024 2:[address] [facility] Creatinine, Plasma 2.23(H) 0.60 - 1.10 mg/dL 07/11/2024 2:[address] [facility] BUN/Creatinine Ratio 17 07/11/2024 2:[address] [facility] Sodium, Plasma 141 136 - 145 mmol/L 07/11/2024 2:[address] [facility] Potassium, Plasma 4.3 3.6 - 4.9 mmol/L 07/11/2024 2:[address] [facility] Chloride, Plasma 105 97 - 107 mmol/L 07/11/2024 2:[address] [facility] CO2, Plasma 22 22 - 29 mmol/L 07/11/2024 2:[address] [facility] Anion Gap 14 6 - 16 mmol/L 07/11/2024 2:[address] [facility] Total Calcium, Plasma 9.3 8.9 - 10.2 mg/dL 07/11/2024 2:[address] [facility] Total Protein 7.6 6.3 - 7.9 g/dL 07/11/2024 2:[address] [facility] Albumin, Plasma 4.1 3.5 - 5.2 g/dL 07/11/2024 2:[address] [facility] AST, Plasma 17 10 - 35 U/L 07/11/2024 2:[address] [facility] ALT, Plasma 18 10 - 35 U/L 07/11/2024 2:[address] [facility] Alkaline Phosphatase, Plasma 143(H) 35 - 104 U/L 07/11/2024 2:[address] [facility] Total Bilirubin, Plasma 0.2 0.2 - 1.1 mg/dL 07/11/2024 2:[address] [facility] eGFRcr 26.3 mL/min/1.7 3m*2 07/11/2024 2:[address] [facility] Comment:Reported eGFRcr in m L/min/1.73m2 is based the CKD-EPI 2020 equation that does not use a race coefficient. Blood Venous blood specimen / Unknown Venipuncture / Unknown 07/11/2024 12:43 PM EDT 07/11/2024 1:29 PM EDT us Stacey Escamilla MD LAB BLOOD ORDERABLES Final Resul t [facility] [address] [place] [address] * XR Panorex (07/11/2024 12:11 PM EDT) Anatomical Region Laterality Modality Jaw region Panoramic X-Ray Impressions 07/11/2024 2:01 PM EDT No apparent dental caries or evidence of periapical abscess. CRITICAL RESULT: No. COMMUNICATION: Per this written report. Drafted by Monty Jones on 07/11/2024 2:00 PM Final report signed by Monty Jones on 07/11/2024 2:01 PM Narrative 07/11/2024 2:01 PM EDT CLINICAL INDICATION: Kidney Transplant evaluation TECHNIQUE: XR PANOREX COMPARISON: None. FINDINGS: Multiple missing teeth. Dental amalgam. No focal lucency to suggest periapical abscess. Evaluation of the central structures is somewhat limited by motion. Within these limits, no apparent dental caries. Procedure Note Monty Jones MD - 07/11/2024 CLINICAL INDICATION: Kidney Transplant evaluation TECHNIQUE: XR PANOREX COMPARISON: None. FINDINGS: Multiple missing teeth. Dental amalgam. No focal lucency to suggestperiapical abscess. Evaluation of the central structures is somewhatlimited by motion. Within these limits, no apparent dental caries. IMPRESSION: No apparent dental caries or evidence of periapical abscess. CRITICAL RESULT: No. COMMUNICATION: Per this written report. Drafted by Monty Jones on 07/11/2024 2:00 PM Final report signed by Monty Jones on 07/11/2024 2:01 PM Stacey Escamilla MD IMG XR PROCEDURES Final Result * NM MYOCARDIAL SPECT REGADENOSON STRESS (MULTI STUDY) (07/11/2024 10:30 AM EDT) Target HR 145 bpm MUSE MPHR 170 bpm MUSE Resting HR 71 bpm MUSE Baseline Systolic BP 170 MUSE Baseline Diastolic BP 101 MUSE Pharma PK HR 93 bpm MUSE Pharmacologic Peak BP Systolic 131 mmHg MUSE Pharmacologic Peak BP Diastolic [address] Elevation (mm) 2.0 mm MUSE Anatomical Region Laterality Modality Nuclear Medicine Narrative 07/11/2024 3:31 PM EDT Combined ECG/SPECT: This is a normal nuclear stress test. There is a previous examination/report available for comparison or correlation, myocardial perfusion SPECT from 07/13/2023. There is no significant difference. This is a low risk stress test. Stress ECG: No ischemic ST segment changes occurred with stress. Perfusion: SPECT images demonstrate normal myocardial perfusion. Function: Normal left ventricular cavity size. Gated SPECT images demonstrate normal systolic function. Regional wall motion is normal. LV wall thickening appears concordantly normal. LVEF: >=70%. Technical Details A one-day protocol was followed. 5.4 mCi of Tc-99m sestamibi were injected intravenously at rest. After a waiting period of 40-60 minutes, SPECT imaging of the heart was performed in the sitting upright position with three-dimensional tomographic reconstructions. 0.4 mg of regadenoson was infused over 10-12 seconds followed by 16.3 mCi of Tc-99m sestamibi injected intravenously. After a waiting period of 40-60 minutes, post-stress SPECT imaging of the heart was performed in the sitting upright and supine positions with three-dimensional tomographic reconstructions. Gated SPECT data were obtained to calculate left ventricular volumes and ejection fraction post-stress. Motion correction was not applied to the rest and/or post-stress acquisitions. Stress Findings A pharmacological stress test was performed. The pharmacologic test was performed using regadenoson. The patient started with a baseline heart rate of 71bpm, and increased to 93bpm with stress pharmacologic agent. The patient's baseline blood pressure was 170/101, and changed to 131/85 with stress medication. The patient's BP decreased during the pharmacologic stress. The patient experienced no chest pain. The patient experienced symptoms of shortness of breath and nausea during the stress test. The patient reached the end of the planned protocol. Stress ECG Baseline ECG: The baseline ECG shows normal sinus rhythm, left axis deviation, non-specific ST-T abnormality and early repolarization. Baseline ECG shows non-specific ST segment deviation. Stress and Recovery ECG: No ischemic ST segment changes occurred. There were no arrhythmias during stress. There were no arrhythmias during recovery. ECG Conclusion: No ischemic ST segment changes occurred with stress. The stress test was performed under direct supervision of the reading managing partner [employer] [place]. Study Impression There is no significant patient motion noted. The SPECT images demonstrate a normal left ventricular cavity size with an estimated left ventricular end-diastolic volume of 73 mL (normal: <149 mL for males, < 102 mL for females, small: <45 mL). There is no stress-induced transient ischemic dilation (TID) of the left ventricular cavity. SPECT images demonstrate normal myocardial perfusion. There is a small, moderate perfusion defect located in the distal inferior myocardium. The perfusion defect is reversible. The perfusion finding is best explained by attenuation artifact related to diaphragm. There is regular cardiac rhythm with optimal gating. The gated SPECT images demonstrate normal systolic function. Regional wall motion is normal. LV wall thickening appears concordantly normal. The calculated post-stress LVEF is >=70%. No extracardiac findings. Nuclear Conclusion Combined ECG/SPECT: This is a normal nuclear stress test. There is a previous examination/report available for comparison or correlation, myocardial perfusion SPECT from 07/13/2023. There is no significant difference. us Stacey Escamilla MD CV STRESS PROCEDURES Final Resul t * ECHO, ADULT TRANSTHORACIC COMPLETE (07/11/2024 9:29 AM EDT) BSA 1.82 m2 FLORENCIO ISCV Height 167.6 [facility] ISCV Weight 73.0 [facility]ENCIO ISCV LVIDd 33 mm [facility] ISCV LVIDs 20 mm [facility]ENCIO ISCV IVSd 10 mm FLORENCIO ISCV LVPWd 8 mm [facility]IO ISCV LV MASS(C)D 81 g [facility]ENCIO ISCV LV RWT 0.55 mm FLORENCIO ISCV LA dimension 34 mm FLORENCIO ISCV RV s' Junior 11.9 cm/s [facility]IO ISCV TAPSE 22 mm [facility]ORENCIO ISCV Ao Root Diam 34 mm FLORENCIO ISCV LAV(MOD-4ch) 51 mL FLORENCIO ISCV MV E Vmax 71.7 cm/s FLORENCIO ISCV MV A Vmax 73.2 cm/s [facility]ORENCIO ISCV MV E/A 1.0 cm/s [facility]ORENCIO ISCV LAV(MOD-bp) Indexed 26 mL/m2 [facility]ORENCIO ISCV LAV(MOD-2ch) 44 mL FLORENCIO ISCV RA MOD 4Ch 33 mL [facility]IO ISCV KENY 18 mL/m2 [facility] ISCV PA acc time 130 msec [facility]ENCIO ISCV mean PAP 21 mmHg [facility]ENCIO ISCV PA NM(ACCEL) 18.8 mmHg FLORENCIO ISCV PA acc slope 571.8 cm/s2 FLORENCIO ISCV LV Lat e' Velocity 8.2 cm/s FLORENCIO ISCV LV Sept e' Junior 6.5 cm/s FLORENCIO ISCV Lat E/e' 8.7 FLORENCIO ISCV Sep E/e' 11.0 FLORENCIO ISCV Avg E/e' 9.9 FLORENCIO ISCV Asc Ao Diam 34 mm FLORENCIO ISCV Ao V2 VTI 18.7 cm FLORENCIO ISCV Ao mean PG 2 mmHg FLORENCIO ISCV Ao V2 Vmax 105.1 cm/s FLORENCIO ISCV Ao max PG 4 mmHg FLORENCIO ISCV Ao V2 mean 70.9 cm/s FLORENCIO ISCV LV V1 VTI 15.8 cm FLORENCIO ISCV LV V1 Vmax 83.1 cm/s FLORENCIO ISCV AV VTI Index 0.84 FLORENCIO ISCV LV mean PG 1.5 mmHG FLORENCIO ISCV LV V1 mean 59.2 cm/sec FLORNECIO ISCV LV max PG 2.8 mmHg FLORENCIO ISCV Anatomical Region Laterality Modality Echocardiography Narrative 07/11/2024 10:47 AM EDT Left Ventricle: The left ventricle is small. The proximal septum is thickened, but with no evidence of left ventricular outflow tract (LVOT) obstruction. The left ventricular systolic function is normal. The LVEF is visually estimated at 60 - 65%. The diastolic function is abnormal. The left ventricular filling pressure is normal. The left ventricular wall motion is normal and no regional wall motion abnormalities are seen. Right Ventricle: The right ventricle is normal in size. The right ventricular systolic function is normal. The spectral Doppler envelope of TR is not adequate for calculating the right ventricular systolic pressure (RVSP). Based upon other 2D and Doppler features, the RVSP is probably normal or at most mildly elevated. IVC/SVC: Based on the IVC size and respiratory variation, the estimated right atrial pressure is 3mmHg. All cardiac valves were reasonably well interrogated with 2D imaging and/or Doppler assessment and no significant valve regurgitation or stenosis is seen. Compared to the most recently available prior study, and allowing for differences in image quality and technique, there is no significant interval change noted. Left Ventricle The left ventricle is small. The proximal septum is thickened, but with no evidence of left ventricular outflow tract (LVOT) obstruction. The left ventricular systolic function is normal. The LVEF is visually estimated at 60 - 65%. The diastolic function is abnormal. The left ventricular filling pressure is normal. The left ventricular wall motion is normal and no regional wall motion abnormalities are seen. Right Ventricle The right ventricle is normal in size. The right ventricular systolic function is normal. The spectral Doppler envelope of TR is not adequate for calculating the right ventricular systolic pressure (RVSP). Based upon other 2D and Doppler features, the RVSP is probably normal or at most mildly elevated. Left Atrium The left atrial size is normal with an indexed volume of 16-34 mL/m2. The interatrial septum is intact with no evidence for an atrial septal defect. Normal flow patterns in the pulmonary veins. Right Atrium The right atrial size is normal. IVC/SVC Based on the IVC size and respiratory variation, the estimated right atrial pressure is 3mmHg. Mitral Valve The leaflets appear thickened. There is mild mitral annular calcification. There is no mitral regurgitation. There is no mitral stenosis. Tricuspid Valve The tricuspid valve is normal in appearance. There is no tricuspid regurgitation. There is no tricuspid stenosis. Aortic Valve The aortic valve appears to be trileaflet. There is calcification of the aortic valve leaflets. There is no valvular regurgitation. There is no hemodynamically significant valvular aortic stenosis. Pulmonic Valve The pulmonic valve is normal in appearance. There is no pulmonic regurgitation. There is no pulmonic stenosis. Pericardium No pericardial effusion. Great Vessels The aortic root is normal in size. In the maximally visualized portion, the ascending aorta appears normal in size. The main pulmonary artery is normal in size. Study Details A complete transthoracic echocardiogram using two-dimensional (2D), m-mode, color and spectral flow Doppler imaging was performed. During the study the apical, parasternal, subcostal and suprasternal view was captured. Overall the study quality was adequate. Heart rate was normal. Height: 167.6 cm. Weight: 73.0 kg. BSA: 1.82 m2. The heart rhythm during this exam was most suggestive of a sinus rhythm. Study Recommendation All cardiac valves were reasonably well interrogated with 2D imaging and/or Doppler assessment and no significant valve regurgitation or stenosis is seen. Compared to the most recently available prior study, and allowing for differences in image quality and technique, there is no significant interval change noted. Wall Scoring Baseline Score Index: 1.00 The left ventricular wall motion is normal. us Stacey Escamilla MD CV ECHO PROCEDURES Final Result * Mammography Breast Diagnostic Tomosynthesis Bilateral (07/21/2022) Anatomical Region Laterality Modality Breast Bilateral Mammography us Historical Provider MD RAVI BI PROCEDURES Final R esult * Cytology (03/01/2001 12:00 AM EST) 03/01/2001 03/02/2001 12: 20 PM EST Narrative [facility] - 03/09/2001 11:24 AM EST [facility] MR #: [id number] [facility] [place], [place] [address] 1975 (Age: 25) FW Collect Date: 03/01/2001 00:00 Receipt Date: 03/02/2001 12:20 Page 1 DEPARTMENT OF PATHOLOGY AND LABORATORY MEDICINE CYTOPATHOLOGY REPORT Email: [email or web address] ATTENDING MD/Practitioner: Ricky Cardoso MD [place] [facility] [facility] OTHER MD(S): Chace Muhammad MD Reported: 03/09/2001 11:24 Collected: 03/01/2001 00:00 INTERPRETATION THIN PREP (CERVICAL/VAGINAL): NEGATIVE FOR INTRAEPITHELIAL LESION OR MALIGNANCY. SATISFACTORY FOR EVALUATION; ENDOCERVICAL/ TRANSFORMATION ZONE COMPONENT PRESENT. Electronically Signed Out By FRANCISCO JAVIER De Anda (ASCP) FRANCISCO JAVIER De Anda (ASCP) Cervical cytology is a screening test primarily for squamous cancers and precursors and has associated false negative and positive results. New technologies such as liquid based sampling may decrease but will not eliminate all false negative results. Regular screening and follow-up of unexplained clinical signs and symptoms are recommended to minimize false negative results. Please see the ASCCP website (www.asccp.org) for followup recommendations. If HPV testing was requested, correlation with the results is suggested (please call Microbiology at [phone] for results). CLINICAL INFORMATION: Menstrual History: Date of Last Menstrual Period: {Not Provided} SPECIMEN DESCRIPTION: A: THIN PREP (CERVICAL/VAGINAL) THIN PREP PROCESS CELLULAR ENHANCEMENT ICD: V76.2 CERVIX, SPECIAL SCREENING FOR MALIGNANT NEOPLASM F: A; THIN SCRN [id number] SNOMED CODES: A; [id number] In cases where a pathologist has signed out the report, the service has been rendered in part by a resident. The signing pathologist has performed and is responsible for the reported pathologic evaluation. us Historical Provider MD LAB PATHOLOGY ORDERABLES Final Result [facility] from Last 3 Months or Most Recently Relevant to Health Maintenance Insurance [employer] Care Teams Deputy Administrator Relationship Specialty Start Date End Date Dyllan Gil APRN [address] [place] [address] [place] [address] PCP - General 06/11/22 Lynda Spencer MD [facility] [address] [phone] Referring Physician Nephrology 06/09/22
--- OUTSIDE RECORDS SUMMARY | 2024-09-30 16:41 | XMS_ITS | Encounter Summary ---
Author Organization Healthcare Address [address] [place] [address] Care Team Providers Care Crime Analyst Name Role Phone Lynda Spencer MD Unavailable [phone] Dyllan Gil APRN Primary Care Provider [phone] Reason for Visit * Reason Onset Date Comments HCN Same Day Appt/Overbook Request 07/18/2024 Encounter Details Date Type Department Care Team (Late st Contact Info) Description 07/18/2024 Telephone [facility] [address] [place] [address] Edi Macdonald MD [address] [address] HCN Same Day Appt/Overbook Request Social History Tobacco Use Types Packs/Day Years [...] encounter Miscellaneous Notes * Telephone Encounter - Demarcus Jj - 07/18/2024 1:16 PM EDT Triage Call #2 07/18/2024 1:16 PM Scheduled 07/[address] Keen. * Telephone Encounter - Adeel Landrum - 07/18/2024 9:00 AM EDT Same Day Appt/Overbook Request Reason for Call: Macdonald Patient is having blurry vision and seeing spider webs. Please call and advise. Note; Doesn't wish to see Wilbert Macedo contact number: [phone] (home) Optimal time of day to reach caller: ANYTIME Additional comments/information from caller: None Note: Please do not reply to this message. Follow-up communication and further actions as a result of this message need to be communicated with the patient directly, if the patient is not active onMyChart. If the patient is active on MyChart, they will receive notification of the communication/outcome via MyChart. documented in this encounter Plan of Treatment Upcoming Encounters Date Type Department Care Team (Late st Contact Info) Description 10/19/2024 10:40 AM EDT Office Visit [facility] Endocrinology [address] [place] [address] Makayla Bahena, EXPERT MEDICAL WRITER [address] [place] [address] 10/26/2024 9:45 AM EDT Office Visit [facility] [address] [place] [address] Munira Keen MD [address] [place] [address] 11/16/2024 1:20 PM EDT Office Visit [facility] [place] Nephrology, Bone & Mineral Metabolism [address], [address] [place] [address] Lynda Spencer MD [address] [place] [address] documented as of this encounter Visit Diagnoses Not on filedocumented in this encounter Additional Health Concerns Assessment Noted Time A fall risk assessment has been complete d for the patient 07/11/2024 1:40 PM EDT A Body Mass Index follow-up plan has been documented for the patient 07/11/2024 2:39 PM EDT documented as of this encounter Care Teams Crime Analyst Relationship Specialty Start Date End Date Dyllan Gil APRN [address] [place] [address] PCP - General 06/11/22 Lynda Spencer MD [address] [place] [address] Referring Physician Nephrology 06/09/22 documented as of this encounter
--- OUTSIDE RECORDS SUMMARY | 2024-09-30 16:41 | XMS_ITS | Encounter Summary ---
Author Organization [facility] Address [address] [place] [address] Care Team Providers Care Production Miner Name Role Phone Lynda Spencer MD Unavailable [phone] Dyllan Gil APRN Primary Care Provider [phone] Reason for Visit * Reason Comments Med Refill Encounter Details Date Type Department Care Team (Late st Contact Info) Description 10/13/2022 [facility]ill [facility] [address] [place] [address] Makayla Bahena APRN [address] [address] Social History Tobacco Use Types [...] Patient Health Questionnaire-2 Score 0 06/26/2022 Comments Unknown Sex and Gender Information Value [...] encounter Miscellaneous Notes * Telephone Encounter - Jennifer Burris - 10/14/2022 9:49 AM EDT Per protocol, 1 medication(s), humulin mix, has been approved for 30 day supply with 2 refill(s) [facility] pharmacy. documented in this encounter Plan of Treatment Upcoming Encounters Date Type Department Care Team (Late st Contact Info) Description 10/19/2024 10:40 AM EDT [facility] [address] [place] [address] Makayla Bahena, ROLL BUCKER 2[address] [facility] [address] [place] [address] 10/26/2024 9:45 AM EDT Office Visit [facility] [address] [place] [address] Munira Keen MD 110 [facility] 550 [place] [address] 11/16/2024 1:20 PM EDT Office Visit [facility] Nephrology, Bone & Mineral Metabolism [address] [facility], [address] [place] [address] Lynda Spencer MD 135 [address] [facility] [address] [place] [address] documented as of this encounter Visit Diagnoses Not on filedocumented in this encounter Additional Health Concerns Assessment Noted Time A fall risk assessment has been complete d for the patient 10/09/2022 12:42 PM EDT A Body Mass Index follow-up plan has been documented for the patient 08/28/2022 2:04 PM EDT documented as of this encounter Care Teams Production Miner Relationship Specialty Start Date End Date Dyllan Gil APRN [address] [place] [address] PCP - General 06/11/22 Lynda Spencer MD [address] [address] Referring Physician Nephrology 06/09/22 documented as of this encounter
--- OUTSIDE RECORDS SUMMARY | 2024-09-30 16:41 | XMS_ITS | Encounter Summary ---
Author Organization Healthcare Address [address] [place] [address] Care Team Providers Care Electronic Video Games Servicer Name Role Phone Lynda Spencer MD Unavailable [phone] Dyllan Gil APRN Primary Care Provider [phone] Encounter Details Date Type Department Care Team (Late st Contact Info) Description 03/08/2024 Lab Requisition [facility] [address] [place] [address] Stacey Escamilla MD [address] [place] [address] Awaiting organ transplant status Social [...] Description 10/19/2024 10:40 AM EDT Office Visit [facility] Endocrinology [address] [place] [address] Makayla Bahena, ELECTRICAL MAINTENANCE ENGINEER 2195 [facility] [address] [place] [address] 10/26/2024 9:45 AM EDT Office Visit [facility] [address] [place] [address] Munira Keen MD 110 [facility] [address] [place] [address] 11/16/2024 1:20 PM EDT Office Visit [facility] Nephrology, Bone & Mineral Metabolism [address] [place] [address] Lynda Spencer MD [address] [place] [address] documented as of this encounter Procedures Procedure Name Priority Date/Time Associated Diagnosis Comments HLA ANTIBODY TESTING (LSA) Routine 03/04/2024 10:50 AM EST Awaiting organ transplant status documented in this encounter Results * HLA Antibody Testing (LSA) (03/04/2024 10:50 AM EST) Blood Venous blood specimen / Unknown 03/04/2024 10:50 AM EST 03/08/2024 11:19 AM EST us Stacey Escamilla MD LAB BLOOD ORDERABLES Final Resul t [facility] [address] documented in this encounter Visit Diagnoses Diagnosis Awaiting organ transplant status documented in this encounter Additional Health Concerns Assessment Noted Time A fall risk assessment has been complete d for the patient 03/03/2024 3:00 PM EST A Body Mass Index follow-up plan has been documented for the patient 03/03/2024 4:28 PM EST documented as of this encounter Care Teams Electronic Video Games Servicer Relationship Specialty Start Date End Date Dyllan Gil APRN [address] [place] [address] PCP - General 06/11/22 Lynda Spencer MD [address] [address] Referring Physician Nephrology 06/09/22 documented as of this encounter
--- OUTSIDE RECORDS SUMMARY | 2024-09-30 16:41 | XMS_ITS | Encounter Summary ---
Author Organization Healthcare Address [address] [place] [address] Care Team Providers Care Foster Care Case Manager Name Role Phone Lynda Spencer MD Unavailable [phone] Dyllan Gil APRN Primary Care Provider [phone] Encounter Details Date Type Department Care Team (Late st Contact Info) Description 01/05/2024 Lab Requisition [facility] [address] [place] [address] Stacey Escamilla MD [address] [place] [address] Awaiting organ transplant status Social [...] Description 10/19/2024 10:40 AM EDT Office Visit [facility] Endocrinology [address] [place] [address] Makayla Bahena, PRODUCT DESIGN MANAGER 2195 [facility] [address] [place] [address] 10/26/2024 9:45 AM EDT Office Visit [facility] [address] [place] [address] Munira Keen MD 110 [facility] [address] [place] [address] 11/16/2024 1:20 PM EDT Office Visit [facility] Nephrology, Bone & Mineral Metabolism [address] [place] [address] Lynda Spencer MD [address] [place] [address] documented as of this encounter Procedures Procedure Name Priority Date/Time Associated Diagnosis Comments HLA ANTIBODY TESTING (LSA) Routine 01/04/2024 8:00 AM EDT Awaiting organ transplant status documented in this encounter Results * HLA Antibody Testing (LSA) (01/04/2024 8:00 AM EDT) Blood Venous blood specimen / Unknown 01/04/2024 8:00 AM EDT 01/05/2024 11:14 AM EDT us Stacey Escamilla MD LAB BLOOD ORDERABLES Final Resul t [facility] [address] documented in this encounter Visit Diagnoses Diagnosis Awaiting organ transplant status documented in this encounter Additional Health Concerns Assessment Noted Time A fall risk assessment has been complete d for the patient 10/15/2023 3:13 PM EDT A Body Mass Index follow-up plan has been documented for the patient 12/23/2023 2:37 PM EDT documented as of this encounter Care Teams Foster Care Case Manager Relationship Specialty Start Date End Date Dyllan Gil APRN [address] [place] [address] PCP - General 06/11/22 Lynda Spencer MD [address] [place] [address] Referring Physician Nephrology 06/09/22 documented as of this encounter
--- OUTSIDE RECORDS SUMMARY | 2024-09-30 16:41 | XMS_ITS | Encounter Summary ---
Author Organization [facility] Address [address] [place] [address] Care Team Providers Care Purchasing Supervisor Name Role Phone Lynda Spencer MD Unavailable [phone] Dyllan Gil APRN Primary Care Provider [phone] Reason for Visit * Reason Comments Med Refill Encounter Details Date Type Department Care Team (Late st Contact Info) Description 09/16/2022 Refill [facility] Endocrinology [address] [place] [address] Makayla Bahena APRN [address] [address] Social History Tobacco Use Types [...] * Telephone Encounter - Jennifer Burris - 09/16/2022 12:53 PM EDT Per protocol, 2 medication(s), blood glucose monitor and test strips, has been approved for 30 day supply with 0 refill(s) to [facility] pharmacy. documented in this encounter Plan of Treatment Upcoming Encounters Date Type Department Care Team (Late st Contact Info) Description 10/19/2024 10:40 AM EDT Office Visit [facility] Endocrinology [address] [place] [address] Makayla Bahena, GREASE MACHINE WORKER 2195 [facility] 125 [place] [address] 10/26/2024 9:45 AM EDT Office Visit [facility] [address] [place] [address] Munira Keen MD 110 [facility] 550 [place] [address] 11/16/2024 1:20 PM EDT Office Visit [facility] Nephrology, Bone & Mineral Metabolism [address] [facility], [address] [place] [address] Lynda Spencer MD 135 [address] [facility] [address] [place] [address] documented as of this encounter Visit Diagnoses Not on filedocumented in this encounter Additional Health Concerns Assessment Noted Time A fall risk assessment has been complete d for the patient 06/26/2022 10:39 AM EST A Body Mass Index follow-up plan has been documented for the patient 08/28/2022 2:04 PM EDT documented as of this encounter Care Teams Purchasing Supervisor Relationship Specialty Start Date End Date Dyllan Gil APRN [address] [place] [address] PCP - General 06/11/22 Lynda Spencer MD [address] [address] Referring Physician Nephrology 06/09/22 documented as of this encounter
--- OUTSIDE RECORDS SUMMARY | 2024-09-30 16:41 | XMS_ITS | Encounter Summary ---
Author Organization Healthcare Address [address] [place] [id number] Care Team Providers Care Risk And Insurance Consultant Name Role Phone Lynda Spencer MD Unavailable [phone] Dyllan Gil APRN Primary Care Provider [phone] Encounter Details Date Type Department Care Team (Late st Contact Info) Description 08/03/2024 Telephone [facility] [address] [facility] [address] [place] [address] Nikki Ross, RN [id number] [address] [place] [id number] Social History Tobacco Use Types Packs/Day Years [...] Telephone Encounter - Nikki Ross RN - 08/03/2024 12:04 PM EDT Out going call to ptMary Jane MARTINEZ requesting a return call re her cardiologists contact information. Officephone number provided. documented in this encounter Plan of Treatment Upcoming Encounters Date Type Department Care Team (Late st Contact Info) Description 10/19/2024 10:40 AM EDT Office Visit [facility] Endocrinology [address] [place] [address] Makayla Bahena S, PRACTICE ADVISOR 2195 [facility] 125 [place] [address] 10/26/2024 9:45 AM EDT Office Visit [facility] [address] [place] [address] Munira Keen MD 110 [facility] [address] [place] [address] 11/16/2024 1:20 PM EDT Office Visit [facility] Nephrology, Bone & Mineral Metabolism [address] [facility], [address] [place] [address] Lynda Spencer MD 135 [address] [facility] [address] [place] [address] documented as of this encounter Visit Diagnoses Not on filedocumented in this encounter Additional Health Concerns Assessment Noted Time A fall risk assessment has been complete d for the patient 07/20/2024 3:20 PM EDT A Body Mass Index follow-up plan has been documented for the patient 07/20/2024 4:39 PM EDT documented as of this encounter Care Teams Risk And Insurance Consultant Relationship Specialty Start Date End Date Dyllan Gil APRN [address] [place] [address] PCP - General 06/11/22 Lynda Spencer MD [address] [address] Referring Physician Nephrology 06/09/22 documented as of this encounter
--- OUTSIDE RECORDS SUMMARY | 2024-09-30 16:41 | XMS_ITS | Encounter Summary ---
Author Organization [facility] Address [address] [place] [id number] Care Team Providers Care Product Development Actuary Name Role Phone Lynda Spencer MD Unavailable [phone] Dyllan Gil APRN Primary Care Provider [phone] Encounter Details Date Type Department Care Team ([facility] Contact Info) Description 08/11/2024 Telephone [facility] Nephrology, Bone & Mineral Metabolism [address] [facility], [address] [place] [address] Ramon Quiroz [facility] [address] [place] [address] Social History Tobacco Use Types Packs/Day Years [...] encounter Miscellaneous Notes * Telephone Encounter - Ramon Quiroz - 08/11/2024 4:02 PM EDT [facility] documented in this encounter Plan of Treatment Upcoming Encounters Date Type Department Care Team ([facility] st Contact Info) Description 10/19/2024 10:40 AM EDT Office Visit [facility] Endocrinology [address] [place] [address] Makayla Bahena APRN 2195 [facility] [address] [place] [address] 10/26/2024 9:45 AM EDT Office Visit [facility] [address] [place] [address] Munira Keen MD 110 [facility] [address] [place] [address] 11/16/2024 1:20 PM EDT Office Visit [facility] Nephrology, Bone & Mineral Metabolism [address] [facility], [address] [place] [address] Lynda Spencer MD [address] [facility] [address] [place] [address] documented as of this encounter Visit Diagnoses Not on filedocumented in this encounter Additional Health Concerns Assessment Noted Time A fall risk assessment has been complete d for the patient 07/20/2024 3:20 PM EDT A Body Mass Index follow-up plan has been documented for the patient 07/20/2024 4:39 PM EDT documented as of this encounter Care Teams Product Development Actuary Relationship Specialty Start Date End Date Dyllan Gil APRN [address] [place] [address] PCP - General 06/11/22 Lynda Spencer MD [address] [address] Referring Physician Nephrology 06/09/22 documented as of this encounter
--- OUTSIDE RECORDS SUMMARY | 2024-09-30 16:41 | XMS_ITS | Encounter Summary ---
Author Organization Healthcare Address [address] [place] [address] Care Team Providers Care Sticker Machine Operator Name Role Phone yLnda Spencer MD Unavailable [phone] Dyllan Gil APRN Primary Care Provider [phone] Encounter Details Date Type Department Care Team (Late st Contact Info) Description 11/04/2023 Lab Requisition [facility] [address] [place] [address] Stacey Escamilla MD [address] [place] [address] Awaiting organ transplant status Social [...] Description 10/19/2024 10:40 AM EDT Office Visit [facility] Endocrinology [address] [place] [address] Makayla Bahena, ROD PILER 2195 [facility] [address] [place] [address] 10/26/2024 9:45 AM EDT Office Visit [facility] [address] [place] [address] Munira Keen MD 110 [facility] [address] [place] [address] 11/16/2024 1:20 PM EDT Office Visit [facility] Nephrology, Bone & Mineral Metabolism [address] [place] [address] Lynda Spencer MD [address] [place] [address] documented as of this encounter Procedures Procedure Name Priority Date/Time Associated Diagnosis Comments HLA ANTIBODY TESTING (LSA) Routine 11/02/2023 8:00 AM EDT Awaiting organ transplant status documented in this encounter Results * HLA Antibody Testing (LSA) (11/02/2023 8:00 AM EDT) Blood Venous blood specimen / Unknown 11/02/2023 8:00 AM EDT 11/04/2023 11:37 AM EDT us Stacey Escamilla MD LAB BLOOD ORDERABLES Final Resul t [facility] [address] documented in this encounter Visit Diagnoses Diagnosis Awaiting organ transplant status documented in this encounter Additional Health Concerns Assessment Noted Time A fall risk assessment has been complete d for the patient 10/15/2023 3:13 PM EDT A Body Mass Index follow-up plan has been documented for the patient 09/07/2023 4:29 PM EDT documented as of this encounter Care Teams Sticker Machine Operator Relationship Specialty Start Date End Date Dyllan Gil APRN [address] [place] [address] PCP - General 06/11/22 Lynda Spencer MD [address] [place] [address] Referring Physician Nephrology 06/09/22 documented as of this encounter
== END 2024-09-30 23:59 | disposition home or self-care (01) ==
LOC: RAD 16:39
PROVIDERS: PCP Family Medicine; Visit Provider Family Medicine
DX: Z12.31 Encounter for screening mammogram for malignant neoplasm of breast (principal); R92.323 Mammographic fibroglandular density, bilateral breasts
CPT/HCPCS: 77063; 77067

== ENCOUNTER 2024-11-04 07:39 | Outpatient (CLI) | payer MEDICAID, SELFPAY ==
--- OUTSIDE RECORDS SUMMARY | 2024-10-26 02:00 | XMS_ITS | Encounter Summary ---
Author Organization [facility] Address [address] [place] [address] Care Team Providers Care Loan Servicing Officer Name Role Phone Lynda Spencer MD Unavailable [phone] Dyllan Gil APRN Primary Care Provider [phone] Encounter Details Date Type Department Care Team (Late st Contact Info) Description 10/26/2024 2:00 AM EDT Ancillary Procedure [facility] [address] [place] [address] Social History Tobacco Use Types [...] Care Team (Late st Contact Info) Description 11/16/2024 1:20 PM EDT Office Visit [facility] Nephrology, Bone & Mineral Metabolism [address] [facility], [address] [place] [address] 02/01/2025 2:15 PM EDT Office Visit [facility] [address] [place] [address] Munira Keen MD [address] [facility] [address] [place] [address] documented as of this encounter Procedures Procedure [...] documented as of this encounter Care Teams Loan Servicing Officer Relationship Specialty Start Date End Date Dyllan Gil APRN [address] [place] [address] PCP - General 06/11/22 Lynda Spencer MD [address] [address] Referring Physician Nephrology 06/09/22 documented as of this encounter
--- OUTSIDE RECORDS SUMMARY | 2024-10-26 09:45 | XMS_ITS | Encounter Summary ---
Author Organization [facility] Address [address] 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 [address] [address] Munira Keen MD [address] [place] [address] Proliferative diabetic retinopathy of both [...] reach the clinic on the phone. Call [phone] and ask for the brake linings coater sales operations director if it is after hours or a [...] Diagnosis Date Ankle fracture Bipolar affective disorder ([facility]) Cataract 9190430 Chronic kidney disease Diabetic retinopathy ([facility]) HLD (hyperlipidemia) Hypertension Hypertensive retinopathy Hypoglycemia Lymphedema, [...] EXTRACTION W/ INTRAOCULAR LENS IMPLANT Right 03/08/2024 [facility] SECTION, LOW TRANSVERSE N/A 1994, [...] diabetic, left eye - had surgery in [place] on OD recently with pre-op ELICIA - [...] reach the clinic on the phone. Call [phone] and ask for the brake linings coater sales operations director if it is after hours or a [...] Description 11/16/2024 1:20 PM EDT Office Visit 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 The patient tolerated the procedure well. There were no complications. The patient received written and verbal post procedure care education. Post injection medications were not given. us Munira Keen MD OPHTH CLINIC PROCEDURE S [...] documented as of this encounter Care Teams Driver Trainer Relationship Specialty Start Date End Date Dyllan Gil APRN [address] [place] [address] PCP - General 06/11/22 Lynda Spencer MD [address] [phone] Referring Physician Nephrology 06/09/22 documented as of this encounter
--- OUTSIDE RECORDS SUMMARY | 2024-11-04 07:41 | XMS_ITS | Encounter Summary ---
Author Organization Healthcare Address [address] [place] [address] Care Team Providers Care Mission Coordinator Name Role Phone Lynda Spencer MD Unavailable [phone] Dyllan Gil APRN Primary Care Provider [phone] Encounter Details Date Type Department Care Team (Late st Contact Info) Description 10/24/2024 Telephone [facility] Plastic & Reconstructive Surgery [address] [place] [phone] Derick Horta Social History Tobacco Use Types Packs/Day Years [...] Metabolism [address] [place] [address] 02/01/2025 2:15 PM EDT Office Visit [facility] [address] [place] [address] Munira Keen MD [address] [facility] [address] [place] [address] documented as of this encounter Visit Diagnoses Not on filedocumented in this encounter Additional Health Concerns Assessment Noted Time A fall risk assessment has been complete d for the patient 08/24/2024 1:00 PM EDT A Body Mass Index follow-up plan has been documented for the patient 08/24/2024 2:24 PM EDT documented as of this encounter Care Teams Mission Coordinator Relationship Specialty Start Date End Date Dyllan Gil APRN [address] [place] [address] PCP - General 06/11/22 Lynda Spencer MD [address] [place] [address] Referring Physician Nephrology 06/09/22 documented as of this encounter
--- OUTSIDE RECORDS SUMMARY | 2024-11-04 07:41 | XMS_ITS | Data Portability ---
Author Organization [facility] & SHAISTA Shane ADMIN Address [address] [place] [id number] Care Team Providers Care Pot Reliner Name Role Phone DIALLO PLAZA Primary Care Provider DEWEY TUTTLE, SANTHOSH Pool Table Operator Assessment Encounter Date Assessment Date Assessment LastModified by Organization Details LastModified Time 03/10/2024 03/10/2024 A total of 15 minutes was spent with the pt today. Recommendations: 1. Download Odysii lance to track calories and protein 2. [...] Lab CMP, serum or plasma 2024 025 BERWIND [facility], [address], [address], [place], [address], 09/30/2024 16:13:14 CBC w/ auto diff 2024 025 NING [facility], [address], [address], [place], [address], 09/30/2024 16:13:13 prealbumi n, serum 2024 025 NING [facility], [address], [address], [place], [address], 09/30/2024 16:13:20 vitamin D, 25-hydrox y, total, serum 2024 025 NING [facility], [address], [address], [place], [address], 09/30/2024 16:13:17 iron + TIBC + ferritin, serum 2024 025 NING [facility], [address], [address], [place], [address], 09/30/2024 16:13:13 vitamin E, serum 2024 025 NING [facility], [address], [address], [place], [address], 09/30/2024 16:13:15 vitamin A (retinol) , serum 2024 025 NING [facility], [address], [address], [place], [address], 09/30/2024 16:13:16 folate, serum 2024 025 NING [facility], [address], [address], [place], [address], 09/30/2024 16:13:16 thiamine, QN, blood 2024 025 NING [facility], [address], [address], [place], [address], 09/30/2024 16:13:18 methylmal kuldip, QN, serum or plasma 2024 025 NING [facility], [address], [address], [place], [address], 09/30/2024 16:13:18 CMP, serum or plasma 2023 024 NING [facility], [address], [address], [place], [address], 03/21/2024 14:36:39 CBC w/ auto diff 2023 024 NING [facility], [address], [address], [place], [address], 03/21/2024 14:36:38 folate, serum 2023 024 NING [facility], [address], [address], [place], [address], 03/21/2024 14:36:44 prealbumi n, serum 2023 024 NIGN [facility], [address], [address], [place], [address], 03/21/2024 14:36:50 thiamine, QN, blood 2023 024 NING [facility], [address], [address], [place], [address], 03/21/2024 14:36:48 HbA1c (hemoglob in A1c), blood 2023 024 NING [facility], [address], [address], [place], [address], 03/21/2024 14:36:43 iron + TIBC + ferritin, serum 2023 024 NING [facility], [address], [address], [place], [address], 03/21/2024 14:36:35 vitamin D, 25-hydrox y, total, serum 2023 024 NING [facility], [address], [address], [place], [address], 03/21/2024 14:36:46 vitamin E, serum 2023 024 NING [facility], [address], [address], [place], [address], 03/21/2024 14:36:42 vitamin A (retinol) , serum 2023 024 NING [facility], [address], [address], [place], [address], 03/21/2024 14:36:45 TSH + free T4, serum 2023 024 NING [facility], [address], [address], [place], [address], 03/21/2024 14:36:36 lipid panel, serum 2023 024 NING [facility], [address], [address], [place], [address], 03/21/2024 14:36:40 methylmal kuldip, QN, serum or plasma 2023 024 NING [facility], [address], [address], [place], [address], 03/21/2024 14:36:49 CMP, serum or plasma 2023 024 NING [facility], [address], [address], [place], [address], 12/25/2023 20:05:42 CBC w/ auto diff 2023 024 NING [facility], [address], [address], [place], [address], 12/25/2023 12:15:53 HbA1c (hemoglob in A1c), blood 2023 024 [email or web address] [facility], [address], [address], [place], [address], 01/06/2024 12:12:08 iron + TIBC + ferritin, serum 2023 024 [email or web address] [facility], [address], [address], [place], [address], 01/06/2024 12:12:08 folate, serum 2023 024 [email or web address] [facility], [address], [address], [place], [address], 01/06/2024 12:12:08 vitamin D, 25-hydrox y, total, serum 2023 024 NING [facility], [address], [address], [place], [address], 12/25/2023 13:07:01 vitamin E, serum 2023 024 NING [facility], [address], [address], [place], [address], 01/04/2024 07:18:37 vitamin A (retinol) , serum 2023 024 NING [facility], [address], [address], [place], [address], 01/04/2024 07:18:38 prealbumi n, serum 2023 024 [email or web address] [facility], [address], [address], [place], [address], 01/06/2024 12:12:08 thiamine, QN, blood 2023 024 [email or web address] [facility], [address], [address], [place], [address], 01/06/2024 12:12:08 lipid panel, serum 2023 024 NING [facility], [address], [address], [place], [address], 12/25/2023 20:05:42 methylmal kuldip, QN, serum or plasma 2023 024 [email or web address] [facility], [address], [address], [place], [address], 01/06/2024 12:12:08 CMP, serum or plasma 2023 024 NING [facility], [address], [address], [place], [address], 09/24/2023 11:13:25 CBC w/ auto diff 2023 024 NING [facility], [address], [address], [place], [address], 09/24/2023 11:13:24 vitamin D, 25-hydrox y, total, serum 2023 024 NING [facility], [address], [address], [place], [address], 09/24/2023 11:13:30 prealbumi n, serum 2023 024 NING [facility], [address], [address], [place], [address], 09/24/2023 11:13:33 thiamine, QN, blood 2023 024 NING [facility], [address], [address], [place], [address], 09/24/2023 11:13:31 iron + TIBC + ferritin, serum 2023 024 BERWIND [facility], [address], [address], [place], [address], 09/24/2023 11:13:22 folate, serum 2023 024 BERWIND [facility], [address], [address], [place], [address], 09/24/2023 11:13:28 vitamin E, serum 2023 024 BERWIND [facility], [address], [address], [place], [address], 09/24/2023 11:13:27 vitamin A (retinol) , serum 2023 024 [facility], [address], [address], [place], [address], 09/24/2023 11:13:29 TSH + free T4, serum 2023 024 [facility], [address], [address], [place], [address], 09/24/2023 11:13:23 methylmal kuldip, QN, serum or plasma 2023 024 [facility], [address], [address], [place], [address], 09/24/2023 11:13:32 Referral None recorded. Procedures None recorded. Surgeries None recorded. Imaging None recorded. Medication Orders omeprazol e 20 mg capsule,d elayed release 2024 025 [facility], [address] [place] [address] [place], [id number], 09/23/2024 14:21:28 famotidin e 20 mg tablet 2024 025 BERWIND [facility], [address] [place] [address] [place], [id number], 09/23/2024 14:21:27 omeprazol e 20 mg capsule,d elayed release 2023 024 [facility], [facility] [address] [place], [id number], 03/10/2024 14:33:45 Patient TargetsNo targets recorded. Patient InstructionsNo instructions recorded. Reason for Referral None Reported. Results Created Date Observation Date Name Description Value Unit Range Abnormal Flag Note LastModifiedBy Organization Detail LastModifiedTime 09/18/1909/19/2023 FE+TI BC+FE R iron bind.cap.(TI BC) 228 ug/dL 250-45 0 below low normal Not Available [facility] ([facility]) [address] [place], [address], 09/24/2023 11:13:22 09/18/19 24 09/19/2023 FE+TI BC+FE R UIBC 166 ug/dL 131-42 5 Not Available [facility] ([facility]) [address] [place], [address], 09/24/2023 11:13:22 09/18/19 24 09/19/2023 FE+TI BC+FE R iron 62 ug/dL 27-159 Not Available [facility] ([facility]) [address] [place], [address], 09/24/2023 11:13:22 09/18/19 24 09/19/2023 FE+TI BC+FE R iron saturation 27 % 15-55 Not Available [facility] ([facility]) [address] [place], [address], 09/24/2023 11:13:22 09/18/19 24 09/19/2023 FE+TI BC+FE R ferritin 269 NG/mL 15-150 above high normal Not Available [facility] ([facility]) [address] [facility], [place], [address], 09/24/2023 11:13:22 09/18/19 24 09/19/2023 TSH+F REE T4 TSH 1.380 uIU/m L 0.450- 4.500 Not Available [facility] ([facility]) [address] [facility] [place], [address], 09/24/2023 11:13:23 09/18/19 24 09/19/2023 TSH+F REE T4 T4,free(dire ct) 0.88 NG/dL 0.82-1 .77 Not Available [facility] ([facility]) [address] [place], [address], 09/24/2023 11:13:23 09/18/19 24 09/19/2023 CBC WITH DIFFE RENTI AL/PL ATELE T WBC 7.4 x10e3 /uL 3.4-10 .8 Not Available [facility] ([facility]) [address] [place], [address], 09/24/2023 11:13:24 09/18/19 24 09/19/2023 CBC WITH DIFFE RENTI AL/PL ATELE T RBC 3.86 x10e6 /uL 3.77-5 .28 Not Available [facility] ([facility]) [address] [place], [address], 09/24/2023 11:13:24 09/18/19 24 09/19/2023 CBC WITH DIFFE RENTI AL/PL ATELE T hemoglobin 11.6 g/dL 11.1-1 5.9 Not Available [facility] ([facility]) [address] [place], [address], 09/24/2023 11:13:24 09/18/19 24 09/19/2023 CBC WITH DIFFE RENTI AL/PL ATELE T hematocrit 34.5 % 34.0-4 6.6 Not Available [facility] ([facility]) [address] [facility], [place], [address], 09/24/2023 11:13:24 09/18/19 24 09/19/2023 CBC WITH DIFFE RENTI AL/PL ATELE T MCV 89 fL 79-97 Not Available [facility] ([facility]) [address] [facility], [place], [address], 09/24/2023 11:13:24 09/18/19 24 09/19/2023 CBC WITH DIFFE RENTI AL/PL ATELE T MCH 30.1 pg 26.6-3 3.0 Not Available [facility] ([facility]) [address] [facility], [place], [address], 09/24/2023 11:13:24 09/18/19 24 09/19/2023 CBC WITH DIFFE RENTI AL/PL ATELE T MCHC 33.6 g/dL 31.5-3 5.7 Not Available [facility] ([facility]) [address] [facility], [place], [address], 09/24/2023 11:13:24 09/18/19 24 09/19/2023 CBC WITH DIFFE RENTI AL/PL ATELE T RDW 13.3 % 11.7-1 5.4 Not Available [facility] ([facility]) [address] [place], [address], 09/24/2023 11:13:24 09/18/19 24 09/19/2023 CBC WITH DIFFE RENTI AL/PL ATELE T platelets 204 x10e3 /uL 150-45 0 Not Available [facility] ([facility]) [address] [place], [address], 09/24/2023 11:13:24 09/18/19 24 09/19/2023 CBC WITH DIFFE RENTI AL/PL ATELE T neutrophils 66 % not estab. Not Available [facility] ([facility]) [address] [facility], [place], [address], 09/24/2023 11:13:24 09/18/19 24 09/19/2023 CBC WITH DIFFE RENTI AL/PL ATELE T lymphs 25 % not estab. Not Available [facility] ([facility]) [address] [facility], [place], [address], 09/24/2023 11:13:24 09/18/19 24 09/19/2023 CBC WITH DIFFE RENTI AL/PL ATELE T monocytes 5 % not estab. Not Available [facility] ([facility]) [address] [facility], [place], [address], 09/24/2023 11:13:24 09/18/19 24 09/19/2023 CBC WITH DIFFE RENTI AL/PL ATELE T eos 3 % not estab. Not Available [facility] ([facility]) [address] [facility], [place], [address], 09/24/2023 11:13:24 09/18/19 24 09/19/2023 CBC WITH DIFFE RENTI AL/PL ATELE T basos 1 % not estab. Not Available [facility] ([facility]) [address] [place], [address], 09/24/2023 11:13:24 09/18/19 24 09/19/2023 CBC WITH DIFFE RENTI AL/PL ATELE T immature cells [employer] Not Available [facility] ([facility]) [address] [place], [address], 09/24/2023 11:13:24 09/18/19 24 09/19/2023 CBC WITH DIFFE RENTI AL/PL ATELE T neutrophils (absolute) 4.9 x10e3 /uL 1.4-7. 0 Not Available [facility] ([facility]) [address] [facility], [place], [address], 09/24/2023 11:13:24 09/18/19 24 09/19/2023 CBC WITH DIFFE RENTI AL/PL ATELE T lymphs (absolute) 1.9 x10e3 /uL 0.7-3. 1 Not Available [facility] ([facility]) [address] [facility], [place], [address], 09/24/2023 11:13:24 09/18/19 24 09/19/2023 CBC WITH DIFFE RENTI AL/PL ATELE T monocytes(ab solute) 0.3 x10e3 /uL 0.1-0. 9 Not Available [facility] ([facility]) [address] [facility], [place], [address], 09/24/2023 11:13:24 09/18/19 24 09/19/2023 CBC WITH DIFFE RENTI AL/PL ATELE T eos (absolute) 0.2 x10e3 /uL 0.0-0. 4 Not Available [facility] ([facility]) [address] [facility], [place], [address], 09/24/2023 11:13:24 09/18/19 24 09/19/2023 CBC WITH DIFFE RENTI AL/PL ATELE T baso (absolute) 0.1 x10e3 /uL 0.0-0. 2 Not Available [facility] ([facility]) [address] [facility], [place], [address], 09/24/2023 11:13:24 09/18/19 24 09/19/2023 CBC WITH DIFFE RENTI AL/PL ATELE T immature granulocytes 0 % not estab. Not Available [facility] ([facility]) [address] [facility], [place], [address], 09/24/2023 11:13:24 09/18/19 24 09/19/2023 CBC WITH DIFFE RENTI AL/PL ATELE T immature grans (abs) 0.0 x10e3 /uL 0.0-0. 1 Not Available [facility] ([facility]) [address] [facility], [place], [address], 09/24/2023 11:13:24 09/18/19 24 09/19/2023 CBC WITH DIFFE RENTI AL/PL ATELE T NRBC [employer] Not Available [facility] ([facility]) [address] [facility], [place], [address], 09/24/2023 11:13:24 09/18/19 24 09/19/2023 CBC WITH DIFFE RENTI AL/PL ATELE T hematology comments: [employer] Not Available [facility] ([facility]) [address] [facility], [place], [address], 09/24/2023 11:13:24 09/18/19 24 09/19/2023 COMP. METAB OLIC PANEL (14) glucose 84 mg/dL 70-99 Not Available [facility] ([facility]) [address] [facility], [place], [address], 09/24/2023 11:13:25 09/18/19 24 09/19/2023 COMP. METAB OLIC PANEL (14) BUN 36 mg/dL 6-24 above high normal Not Available [facility] ([facility]) [address] [facility], [place], [address], 09/24/2023 11:13:25 09/18/19 24 09/19/2023 COMP. METAB OLIC PANEL (14) creatinine 2.58 mg/dL 0.57-1 .00 above high normal Not Available [facility] ([facility]) [address] [facility], [place], [address], 09/24/2023 11:13:25 09/18/19 24 09/19/2023 COMP. METAB OLIC PANEL (14) eGFR 22 mL/mi n/1.7 3 >59 below low normal Not Available [facility] ([facility]) [address] [facility] [place], [address], 09/24/2023 11:13:25 09/18/19 24 09/19/2023 COMP. METAB OLIC PANEL (14) BUN/creatini ne ratio 14 9-23 Not Available [facility] ([facility]) [address] [facility] [place], [address], 09/24/2023 11:13:25 09/18/19 24 09/19/2023 COMP. METAB OLIC PANEL (14) sodium 144 mmol/ L 134-14 4 Not Available [facility] ([facility]) [address] [facility] [place], [address], 09/24/2023 11:13:25 09/18/19 24 09/19/2023 COMP. METAB OLIC PANEL (14) potassium 4.5 mmol/ L 3.5-5. 2 Not Available [facility] ([facility]) [address] [facility] [place], [address], 09/24/2023 11:13:25 09/18/19 24 09/19/2023 COMP. METAB OLIC PANEL (14) chloride 109 mmol/ L 96-106 above high normal Not Available [facility] ([facility]) [address] [facility] [place], [address], 09/24/2023 11:13:25 09/18/19 24 09/19/2023 COMP. METAB OLIC PANEL (14) carbon dioxide, total 21 mmol/ L 20-29 Not Available [facility] ([facility]) [address] [facility] [place], [address], 09/24/2023 11:13:25 09/18/19 24 09/19/2023 COMP. METAB OLIC PANEL (14) calcium 9.7 mg/dL 8.7-10 .2 Not Available [facility] ([facility]) [address] [facility], [place], [address], 09/24/2023 11:13:25 09/18/19 24 09/19/2023 COMP. METAB OLIC PANEL (14) protein, total 7.3 g/dL 6.0-8. 5 Not Available [facility] ([facility]) [address] [place], [address], 09/24/2023 11:13:25 09/18/19 24 09/19/2023 COMP. METAB OLIC PANEL (14) albumin 4.3 g/dL 3.9-4. 9 Not Available [facility] ([facility]) [address] [place], [address], 09/24/2023 11:13:25 09/18/19 24 09/19/2023 COMP. METAB OLIC PANEL (14) globulin, total 3.0 g/dL 1.5-4. 5 Not Available [facility] ([facility]) [address] [place], [address], 09/24/2023 11:13:25 09/18/19 24 09/19/2023 COMP. METAB OLIC PANEL (14) A/G ratio 1.4 1.2-2. 2 Not Available [facility] ([facility]) [address] [place], [address], 09/24/2023 11:13:25 09/18/19 24 09/19/2023 COMP. METAB OLIC PANEL (14) bilirubin, total 0.3 mg/dL 0.0-1. 2 Not Available [facility] ([facility]) [address] [facility] [place], [address], 09/24/2023 11:13:25 09/18/19 24 09/19/2023 COMP. METAB OLIC PANEL (14) alkaline phosphatase 125 IU/L 44-121 above high normal Not Available [facility] ([facility]) [address] [facility] [place], [address], 09/24/2023 11:13:25 09/18/19 24 09/19/2023 COMP. METAB OLIC PANEL (14) AST (SGOT) 14 IU/L 0-40 Not Available [facility] ([facility]) [address] [facility], [place], [address], 09/24/2023 11:13:25 09/18/19 24 09/19/2023 COMP. METAB OLIC PANEL (14) ALT (SGPT) 8 IU/L 0-32 Not Available [facility] ([facility]) [address] [facility], [place], [address], 09/24/2023 11:13:25 09/18/19 24 09/24/2023 VITAM IN E vitamin E(alpha tocopherol) 12.1 mg/L 7.0-25 .1 Not Available [facility] ([facility]) [address] [facility], [place], [address], 09/24/2023 11:13:26 09/18/19 24 09/24/2023 VITAM IN [...] in E defic ient. Not Available [facility] ([facility]) [address] [facility], [place], [address], 09/24/2023 11:13:26 09/18/19 24 09/19/2023 FOLAT E (FOLI C ACID) , SERUM folate (folic acid), serum >20.0 NG/mL >3.0 A serum folat e valarie ntrat ion of less than 3.1 ng/mL is consi dered to repre sent clini kaden defic iency . Not Available [facility] ([facility]) [address] [facility], [place], [address], 09/24/2023 11:13:28 09/18/19 24 09/24/2023 VITAM IN [...] Drug Admin istra tion. Not Available [facility] ([facility]) [address] [facility], [place], [address], 09/24/2023 11:13:29 09/18/19 24 09/19/2023 VITAM IN [...] Won dominguez [place]: The [facility]io [facility] Press . 2. Hector varghese MF, Dick rivera [place], Evon off-F errar i PINEDA, et al. Evalu ation , treat ment, and preve ntion of vitam in D defic iency : an Endoc rine Socie ty clini kaden pract ice guide line. JCEM. 2010; 96(7) :1911 -30. Not Available [facility] ([facility]) [address] [facility], [place], [address], 09/24/2023 11:13:30 09/18/19 24 09/23/2023 VITAM IN B1 (THIA MINE) , BLOOD vit. B1, whole blood 111.4 nmol/ L 66.5-2 00.0 Not Available [facility] ([facility]) [address] [place], [address], 09/24/2023 11:13:31 09/18/19 24 09/22/2023 METHY LMALO ENRIQUE ACID, SERUM methylmaloni c acid, serum 416 nmol/ L 0-378 above high normal Not Available [facility] ([facility]) [address] [facility], [place], [address], 09/24/2023 11:13:32 09/18/19 24 09/19/2023 PREAL BUMIN prealbumin 22 mg/dL 12-34 Not Available [facility] ([facility]) [address] [facility], [place], [address], 09/24/2023 11:13:33 03/10/20 24 03/11/2024 FE+TI BC+FE R iron bind.cap.(TI BC) 229 ug/dL 250-45 0 below low normal Not Available [facility] ([facility]) [address] [place], [address], 03/21/2024 14:36:35 03/10/20 24 03/11/2024 FE+TI BC+FE R UIBC 183 ug/dL 131-42 5 normal Not Available [facility] ([facility]) [address] [place], [address], 03/21/2024 14:36:35 03/10/20 24 03/11/2024 FE+TI BC+FE R iron 46 ug/dL 27-159 normal Not Available [facility] ([facility]) [address] [facility] [place], [address], 03/21/2024 14:36:35 03/10/20 24 03/11/2024 FE+TI BC+FE R iron saturation 20 % 15-55 normal Not Available [facility] ([facility]) [address] [facility], [place], [address], 03/21/2024 14:36:35 03/10/20 24 03/11/2024 FE+TI BC+FE R ferritin 184 NG/mL 15-150 above high normal Not Available [facility] ([facility]) [address] [place], [address], 03/21/2024 14:36:35 03/10/20 24 03/11/2024 TSH+F REE T4 TSH 1.400 uIU/m L 0.450- 4.500 normal Not Available [facility] ([facility]) [address] [facility], [place], [address], 03/21/2024 14:36:36 03/10/20 24 03/11/2024 TSH+F REE T4 T4,free(dire ct) 0.95 NG/dL 0.82-1 .77 normal Not Available [facility] ([facility]) [address] [place], [address], 03/21/2024 14:36:36 03/10/20 24 03/11/2024 CBC WITH DIFFE RENTI AL/PL ATELE T WBC 8.4 x10e3 /uL 3.4-10 .8 normal Eff ectiv e Decem sheela 2023 [place] [id number] 5 WBC will be made* * non-o rdera ble as a stand -radha e order code. Not Available [facility] ([facility]) [address] [place], [address], 03/21/2024 14:36:38 03/10/20 24 03/11/2024 CBC WITH DIFFE RENTI AL/PL ATELE T RBC 3.71 x10e6 /uL 3.77-5 .28 below low normal Not Available [facility] ([facility]) [address] [place], [address], 03/21/2024 14:36:38 03/10/20 24 03/11/2024 CBC WITH DIFFE RENTI AL/PL ATELE T hemoglobin 11.4 g/dL 11.1-1 5.9 normal Not Available [facility] ([facility]) [address] [place], [address], 03/21/2024 14:36:38 03/10/2003/11/2024 CBC WITH DIFFE RENTI AL/PL ATELE T hematocrit 34.6 % 34.0-4 6.6 normal Not Available [facility] ([facility]) [address] [place], [address], 03/21/2024 14:36:38 03/10/20 24 03/11/2024 CBC WITH DIFFE RENTI AL/PL ATELE T MCV 93 fL 79-97 normal Not Available [facility] ([facility]) [address] [place], [address], 03/21/2024 14:36:38 03/10/20 24 03/11/2024 CBC WITH DIFFE RENTI AL/PL ATELE T MCH 30.7 pg 26.6-3 3.0 normal Not Available [facility] ([facility]) [address] [place], [address], 03/21/2024 14:36:38 03/10/20 24 03/11/2024 CBC WITH DIFFE RENTI AL/PL ATELE T MCHC 32.9 g/dL 31.5-3 5.7 normal Not Available [facility] ([facility]) [address] [place], [address], 03/21/2024 14:36:38 03/10/20 24 03/11/2024 CBC WITH DIFFE RENTI AL/PL ATELE T RDW 11.8 % 11.7-1 5.4 Not Available [facility] ([facility]) [address] [facility], [place], [address], 03/21/2024 14:36:38 03/10/20 24 03/11/2024 CBC WITH DIFFE RENTI AL/PL ATELE T platelets 162 x10e3 /uL 150-45 0 normal Not Available [facility] ([facility]) [address] [facility], [place], [address], 03/21/2024 14:36:38 03/10/2003/11/2024 CBC WITH DIFFE RENTI AL/PL ATELE T neutrophils 65 % not estab. normal Not Available [facility] ([facility]) [address] [facility], [place], [address], 03/21/2024 14:36:38 03/10/20 24 03/11/2024 CBC WITH DIFFE RENTI AL/PL ATELE T lymphs 25 % not estab. normal Not Available [facility] ([facility]) [address] [facility], [place], [address], 03/21/2024 14:36:38 03/10/20 24 03/11/2024 CBC WITH DIFFE RENTI AL/PL ATELE T monocytes 5 % not estab. normal Not Available [facility] ([facility]) [address] [facility], [place], [address], 03/21/2024 14:36:38 03/10/20 24 03/11/2024 CBC WITH DIFFE RENTI AL/PL ATELE T eos 4 % not estab. normal Not Available [facility] ([facility]) [address] [facility], [place], [address], 03/21/2024 14:36:38 03/10/20 24 03/11/2024 CBC WITH DIFFE RENTI AL/PL ATELE T basos 1 % not estab. normal Not Available [facility] ([facility]) [address] [facility] [facility], [place], [address], 03/21/2024 14:36:38 03/10/20 24 03/11/2024 CBC WITH DIFFE RENTI AL/PL ATELE T immature cells [employer] STOREK[employer]PER Not Available [facility] ([facility]) [address] [facility], [place], [address], 03/21/2024 14:36:38 03/10/20 24 03/11/2024 CBC WITH DIFFE RENTI AL/PL ATELE T neutrophils (absolute) 5.5 x10e3 /uL 1.4-7. 0 normal Not Available [facility] ([facility]) [address] [facility], [place], [address], 03/21/2024 14:36:38 03/10/20 24 03/11/2024 CBC WITH DIFFE RENTI AL/PL ATELE T lymphs (absolute) 2.1 x10e3 /uL 0.7-3. 1 normal Not Available [facility] ([facility]) [address] [place], [address], 03/21/2024 14:36:38 03/10/20 24 03/11/2024 CBC WITH DIFFE RENTI AL/PL ATELE T monocytes(ab solute) 0.4 x10e3 /uL 0.1-0. 9 normal Not Available [facility] ([facility]) [address] [facility], [place], [address], 03/21/2024 14:36:38 03/10/20 24 03/11/2024 CBC WITH DIFFE RENTI AL/PL ATELE T eos (absolute) 0.3 x10e3 /uL 0.0-0. 4 normal Not Available [facility] ([facility]) [address] [place], [address], 03/21/2024 14:36:38 03/10/20 24 03/11/2024 CBC WITH DIFFE RENTI AL/PL ATELE T baso (absolute) 0.1 x10e3 /uL 0.0-0. 2 normal Not Available [facility] ([facility]) [address] [facility], [place], [address], 03/21/2024 14:36:38 03/10/20 24 03/11/2024 CBC WITH DIFFE RENTI AL/PL ATELE T immature granulocytes 0 % not estab. Not Available [facility] ([facility]) [address] [facility], [place], [address], 03/21/2024 14:36:38 03/10/20 24 03/11/2024 CBC WITH DIFFE RENTI AL/PL ATELE T immature grans (abs) 0.0 x10e3 /uL 0.0-0. 1 Not Available [facility] (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) [address] [facility], [place], [address], 03/21/2024 14:36:38 03/10/20 24 03/11/2024 COMP. METAB OLIC PANEL (14) glucose 148 mg/dL 70-99 above high normal Not Available [facility] ([facility]) [address] [facility], [place], [address], 03/21/2024 14:36:39 03/10/20 24 03/11/2024 COMP. METAB OLIC PANEL (14) BUN 34 mg/dL 6-24 above high normal Not Available [facility] ([facility]) [address] [facility], [place], [address], 03/21/2024 14:36:39 03/10/20 24 03/11/2024 COMP. METAB OLIC PANEL (14) creatinine 2.07 mg/dL 0.57-1 .00 above high normal Not Available [facility] ([facility]) [address] [facility], [place], [address], 03/21/2024 14:36:39 03/10/20 24 03/11/2024 COMP. METAB OLIC PANEL (14) eGFR 29 mL/mi n/1.7 3 >59 below low normal Not Available [facility] ([facility]) [address] [facility] [place], [address], 03/21/2024 14:36:39 03/10/20 24 03/11/2024 COMP. METAB OLIC PANEL (14) BUN/creatini ne ratio 16 9-23 normal Not Available [facility] ([facility]) [address] [facility], [place], [address], 03/21/2024 14:36:39 03/10/20 24 03/11/2024 COMP. METAB OLIC PANEL (14) sodium 143 mmol/ L 134-14 4 normal Not Available [facility] ([facility]) [address] [facility] [place], [address], 03/21/2024 14:36:39 03/10/20 24 03/11/2024 COMP. METAB OLIC PANEL (14) potassium 4.8 mmol/ L 3.5-5. 2 normal Not Available [facility] ([facility]) [address] [facility] [place], [address], 03/21/2024 14:36:39 03/10/20 24 03/11/2024 COMP. METAB OLIC PANEL (14) chloride 106 mmol/ L 96-106 normal Not Available [facility] ([facility]) [address] [facility] [place], [address], 03/21/2024 14:36:39 03/10/20 24 03/11/2024 COMP. METAB OLIC PANEL (14) carbon dioxide, total 26 mmol/ L 20-29 normal Not Available [facility] ([facility]) [address] [facility], [place], [address], 03/21/2024 14:36:39 03/10/20 24 03/11/2024 COMP. METAB OLIC PANEL (14) calcium 9.5 mg/dL 8.7-10 .2 normal Not Available [facility] ([facility]) [address] [facility] [place], [address], 03/21/2024 14:36:39 03/10/20 24 03/11/2024 COMP. METAB OLIC PANEL (14) protein, total 6.8 g/dL 6.0-8. 5 normal Not Available [facility] ([facility]) [address] [facility] [place], [address], 03/21/2024 14:36:39 03/10/20 24 03/11/2024 COMP. METAB OLIC PANEL (14) albumin 4.1 g/dL 3.9-4. 9 normal Not Available [facility] ([facility]) [address] [facility] [place], [address], 03/21/2024 14:36:39 03/10/20 24 03/11/2024 COMP. METAB OLIC PANEL (14) globulin, total 2.7 g/dL 1.5-4. 5 Not Available [facility] ([facility]) [address] [facility] [place], [address], 03/21/2024 14:36:39 03/10/20 24 03/11/2024 COMP. METAB OLIC PANEL (14) bilirubin, total 0.2 mg/dL 0.0-1. 2 normal Not Available [facility] ([facility]) [address] [facility] [place], [address], 03/21/2024 14:36:39 03/10/20 24 03/11/2024 COMP. METAB OLIC PANEL (14) alkaline phosphatase 124 IU/L 44-121 above high normal Not Available [facility] ([facility]) [address] [facility] [place], [address], 03/21/2024 14:36:39 03/10/20 24 03/11/2024 COMP. METAB OLIC PANEL (14) AST (SGOT) 19 IU/L 0-40 normal Not Available [facility] ([facility]) [address] [facility] [place], [address], 03/21/2024 14:36:39 03/10/20 24 03/11/2024 COMP. METAB OLIC PANEL (14) ALT (SGPT) 19 IU/L 0-32 normal Not Available [facility] ([facility]) [address] [place], [address], 03/21/2024 14:36:39 03/10/20 24 03/11/2024 LIPID PANEL cholesterol, total 154 mg/dL 100-19 9 normal Not Available [facility] ([facility]) [address] [place], [address], 03/21/2024 14:36:40 03/10/20 24 03/11/2024 LIPID PANEL triglyceride s 125 mg/dL 0-149 normal Not Available [facility] ([facility]) [address] [place], [address], 03/21/2024 14:36:40 03/10/20 24 03/11/2024 LIPID PANEL HDL cholesterol 50 mg/dL >39 normal Not Available [facility] ([facility]) [address] [place], [address], 03/21/2024 14:36:40 03/10/20 24 03/11/2024 LIPID PANEL VLDL cholesterol kaden 22 mg/dL 5-40 Not Available [facility] ([facility]) [address] [facility] [place], [address], 03/21/2024 14:36:40 03/10/20 24 03/11/2024 LIPID PANEL LDL chol calc ([facility]) 82 mg/dL 0-99 Not Available [facility] ([facility]) [address] [facility], [place], [address], 03/21/2024 14:36:40 03/10/20 24 03/11/2024 LIPID PANEL LDL calc comment: [employer] Not Available [facility] ([facility]) [address] [facility], [place], [address], 03/21/2024 14:36:40 03/10/20 24 03/21/2024 VITAM IN E vitamin E(alpha tocopherol) 8.9 mg/L 7.0-25 .1 Not Available [facility] ([facility]) [address] [facility], [place], [address], 03/21/2024 14:36:42 03/10/20 24 03/21/2024 VITAM IN [...] in E defic ient. Not Available [facility] ([facility]) [address] [facility], [place], [address], 03/21/2024 14:36:42 03/10/20 24 03/11/2024 HEMOG LOBIN A1C hemoglobin A1C 7.1 % 4.8-5. 6 above high normal Predi abete s: 5.7 - 6.4 Diabe marleen: >6.4 Glyce raul contr ol for adult s with diabe marleen: <7.0 Not Available [facility] ([facility]) [address] [facility], [place], [address], 03/21/2024 14:36:43 03/10/20 24 03/11/2024 FOLAT E (FOLI C ACID) , SERUM folate (folic acid), serum >20.0 NG/mL >3.0 A serum folat e valarie ntrat ion of less than 3.1 ng/mL is consi dered to repre sent clini kaden defic iency . Not Available [facility] ([facility]) [address] [facility], [place], [address], 03/21/2024 14:36:44 03/10/20 24 03/21/2024 VITAM IN [...] e greg cteri stics deter mined by [facility] [employer] [facility]. It has not been clear ed or appro audi by the Food and Drug Admin istra tion. Not Available [facility] ([facility]) [address] [facility], [place], [address], 03/21/2024 14:36:45 03/10/20 24 03/11/2024 VITAM IN [...] Endoc rine Socie ty went on to fur er defin e vitam in D insuf ficie ncy as a level betwe en 21 and 29 ng/mL (2). 1. IOM (Inst itute of Medic ine). 2010. Dieta ry refer ence intjaclyn es for calci um and D. Won dominguez [place]: The [facility] . 2. Hector varghese MF, Dick rivera [place], Evon off-F errar i PINEDA, et al. Evalu ation , treat ment, and preve ntion of vitam in D defic iency : an Endoc rine Socie ty clini kaden pract ice guide line. JCEM. 2010; 96(7) :1911 -30. Not Available [facility] ([facility]) [address] [place], [address], 03/21/2024 14:36:46 03/10/20 24 03/13/2024 VITAM IN B1 (THIA MINE) , BLOOD vit. B1, whole blood 136.1 nmol/ L 66.5-2 00.0 Not Available [facility] ([facility]) [address] [place], [address], 03/21/2024 14:36:48 03/10/20 24 03/14/2024 METHY LMALO ENRIQUE ACID, SERUM methylmaloni c acid, serum 255 nmol/ L 0-378 Not Available [facility] ([facility]) [address] [place], [address], 03/21/2024 14:36:49 03/10/20 24 03/11/2024 PREAL BUMIN prealbumin 25 mg/dL 12-34 Not Available [facility] ([facility]) [address] [place], [address], 03/21/2024 14:36:50 09/24/19 25 09/24/2024 FE+TI BC+FE R iron bind.cap.(TI BC) 301 ug/dL 250-45 0 normal Not Available [facility] ([facility]) [address] [place], [address], 09/30/2024 16:13:13 09/24/19 25 09/24/2024 FE+TI BC+FE R UIBC 253 ug/dL 131-42 5 normal Not Available [facility] ([facility]) [address] [place], [address], 09/30/2024 16:13:13 09/24/19 25 09/24/2024 FE+TI BC+FE R iron 48 ug/dL 27-159 normal Not Available [facility] ([facility]) [address] [place], [address], 09/30/2024 16:13:13 09/24/19 25 09/24/2024 FE+TI BC+FE R iron saturation 16 % 15-55 normal Not Available [facility] ([facility]) [address] [place], [address], 09/30/2024 16:13:13 09/24/19 25 09/24/2024 FE+TI BC+FE R ferritin 67 NG/mL 15-150 normal Not Available [facility] ([facility]) [address] [place], [address], 09/30/2024 16:13:13 09/24/19 25 09/24/2024 CBC WITH DIFFE RENTI AL/PL ATELE T WBC 8.3 x10e3 /uL 3.4-10 .8 normal Not Available [facility] ([facility]) [address] [place], [address], 09/30/2024 16:13:13 09/24/19 25 09/24/2024 CBC WITH DIFFE RENTI AL/PL ATELE T RBC 4.89 x10e6 /uL 3.77-5 .28 normal Not Available [facility] ([facility]) [address] [place], [address], 09/30/2024 16:13:13 09/24/19 25 09/24/2024 CBC WITH DIFFE RENTI AL/PL ATELE T hemoglobin 14.3 g/dL 11.1-1 5.9 normal Not Available [facility] ([facility]) [address] [place], [address], 09/30/2024 16:13:13 09/24/19 25 09/24/2024 CBC WITH DIFFE RENTI AL/PL ATELE T hematocrit 45.2 % 34.0-4 6.6 normal Not Available [facility] ([facility]) [address] [place], [address], 09/30/2024 16:13:13 09/24/19 25 09/24/2024 CBC WITH DIFFE RENTI AL/PL ATELE T MCV 92 fL 79-97 normal Not Available [facility] ([facility]) [address] [facility], [place], [address], 09/30/2024 16:13:13 09/24/19 25 09/24/2024 CBC WITH DIFFE RENTI AL/PL ATELE T MCH 29.2 pg 26.6-3 3.0 normal Not Available [facility] ([facility]) [address] [place], [address], 09/30/2024 16:13:13 09/24/19 25 09/24/2024 CBC WITH DIFFE RENTI AL/PL ATELE T MCHC 31.6 g/dL 31.5-3 5.7 normal Not Available [facility] ([facility]) [address] [place], [address], 09/30/2024 16:13:13 09/24/19 25 09/24/2024 CBC WITH DIFFE RENTI AL/PL ATELE T RDW 13.6 % 11.7-1 5.4 Not Available [facility] ([facility]) [address] [place], [address], 09/30/2024 16:13:13 09/24/19 25 09/24/2024 CBC WITH DIFFE RENTI AL/PL ATELE T platelets 209 x10e3 /uL 150-45 0 normal Not Available [facility] ([facility]) [address] [facility], [place], [address], 09/30/2024 16:13:13 09/24/19 25 09/24/2024 CBC WITH DIFFE RENTI AL/PL ATELE T neutrophils 60 % not estab. normal Not Available [facility] ([facility]) [address] [facility], [place], [address], 09/30/2024 16:13:13 09/24/19 25 09/24/2024 CBC WITH DIFFE RENTI AL/PL ATELE T lymphs 30 % not estab. normal Not Available [facility] ([facility]) [address] [facility], [place], [address], 09/30/2024 16:13:13 09/24/19 25 09/24/2024 CBC WITH DIFFE RENTI AL/PL ATELE T monocytes 4 % not estab. normal Not Available [facility] ([facility]) [address] [facility], [place], [address], 09/30/2024 16:13:13 09/24/19 25 09/24/2024 CBC WITH DIFFE RENTI AL/PL ATELE T eos 5 % not estab. normal Not Available [facility] ([facility]) [address] [facility], [place], [address], 09/30/2024 16:13:13 09/24/19 25 09/24/2024 CBC WITH DIFFE RENTI AL/PL ATELE T basos 1 % not estab. normal Not Available [facility] ([facility]) [address] [facility], [place], [address], 09/30/2024 16:13:13 09/24/19 25 09/24/2024 CBC WITH DIFFE RENTI AL/PL ATELE T immature cells [employer]KEEPER Not Available [facility] ([facility]) [address] [place], [address], 09/30/2024 16:13:13 09/24/19 25 09/24/2024 CBC WITH DIFFE RENTI AL/PL ATELE T neutrophils (absolute) 5.0 x10e3 /uL 1.4-7. 0 normal Not Available [facility] ([facility]) [address] [facility], [place], [address], 09/30/2024 16:13:13 09/24/19 25 09/24/2024 CBC WITH DIFFE RENTI AL/PL ATELE T lymphs (absolute) 2.5 x10e3 /uL 0.7-3. 1 normal Not Available [facility] ([facility]) [address] [place], [address], 09/30/2024 16:13:13 09/24/19 25 09/24/2024 CBC WITH DIFFE RENTI AL/PL ATELE T monocytes(ab solute) 0.3 x10e3 /uL 0.1-0. 9 normal Not Available [facility] ([facility]) [address] [facility], [place], [address], 09/30/2024 16:13:13 09/24/19 25 09/24/2024 CBC WITH DIFFE RENTI AL/PL ATELE T eos (absolute) 0.4 x10e3 /uL 0.0-0. 4 normal Not Available [facility] ([facility]) [address] [place], [address], 09/30/2024 16:13:13 09/24/19 25 09/24/2024 CBC WITH DIFFE RENTI AL/PL ATELE T baso (absolute) 0.1 x10e3 /uL 0.0-0. 2 normal Not Available [facility] ([facility]) [address] [place], [address], 09/30/2024 16:13:13 09/24/19 25 09/24/2024 CBC WITH DIFFE RENTI AL/PL ATELE T immature granulocytes 0 % not estab. Not Available [facility] ([facility]) [address], [place], [address], 09/30/2024 16:13:13 09/24/19 25 09/24/2024 CBC WITH DIFFE RENTI AL/PL ATELE T immature grans (abs) 0.0 x10e3 /uL 0.0-0. 1 Not Available [facility] ([facility]) [address] [facility], [place], [address], 09/30/2024 16:13:13 09/24/19 25 09/24/2024 CBC WITH DIFFE RENTI AL/PL ATELE T NRBC [employer] ST[employer]KEEPER Not Available [facility] (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) [address] [facility], [place], [address], 09/30/2024 16:13:13 09/24/19 25 09/24/2024 COMP. METAB OLIC PANEL (14) glucose 96 mg/dL 70-99 normal Not Available [facility] ([facility]) [address] [facility], [place], [address], 09/30/2024 16:13:14 09/24/19 25 09/24/2024 COMP. METAB OLIC PANEL (14) BUN 37 mg/dL 6-24 above high normal Not Available [facility] ([facility]) [address] [facility], [place], [address], 09/30/2024 16:13:14 09/24/19 25 09/24/2024 COMP. METAB OLIC PANEL (14) creatinine 2.58 mg/dL 0.57-1 .00 above high normal Not Available [facility] ([facility]) [address] [facility], [place], [address], 09/30/2024 16:13:14 09/24/19 25 09/24/2024 COMP. METAB OLIC PANEL (14) eGFR 22 mL/mi n/1.7 3 >59 below low normal Not Available [facility] ([facility]) [address] [facility], [place], [address], 09/30/2024 16:13:14 09/24/19 25 09/24/2024 COMP. METAB OLIC PANEL (14) BUN/creatini ne ratio 14 9-23 normal Not Available [facility] ([facility]) [address] [facility], [place], [address], 09/30/2024 16:13:14 09/24/19 25 09/24/2024 COMP. METAB OLIC PANEL (14) sodium 142 mmol/ L 134-14 4 normal Not Available [facility] ([facility]) [address] [facility], [place], [address], 09/30/2024 16:13:14 09/24/19 25 09/24/2024 COMP. METAB OLIC PANEL (14) potassium 4.7 mmol/ L 3.5-5. 2 normal Not Available [facility] ([facility]) [address] [facility], [place], [address], 09/30/2024 16:13:14 09/24/19 25 09/24/2024 COMP. METAB OLIC PANEL (14) chloride 105 mmol/ L 96-106 normal Not Available [facility] ([facility]) [address] [facility], [place], [address], 09/30/2024 16:13:14 09/24/19 25 09/24/2024 COMP. METAB OLIC PANEL (14) carbon dioxide, total 20 mmol/ L 20-29 normal Not Available [facility] ([facility]) [address] [facility], [place], [address], 09/30/2024 16:13:14 09/24/19 25 09/24/2024 COMP. METAB OLIC PANEL (14) calcium 10.0 mg/dL 8.7-10 .2 normal Not Available [facility] ([facility]) [address] [facility] [place], [address], 09/30/2024 16:13:14 09/24/19 25 09/24/2024 COMP. METAB OLIC PANEL (14) protein, total 7.3 g/dL 6.0-8. 5 normal Not Available [facility] ([facility]) [address] [facility], [place], [address], 09/30/2024 16:13:14 09/24/19 25 09/24/2024 COMP. METAB OLIC PANEL (14) albumin 4.5 g/dL 3.9-4. 9 normal Not Available [facility] ([facility]) [address] [facility] [place], [address], 09/30/2024 16:13:14 09/24/19 25 09/24/2024 COMP. METAB OLIC PANEL (14) globulin, total 2.8 g/dL 1.5-4. 5 Not Available [facility] ([facility]) [address] [facility] [place], [address], 09/30/2024 16:13:14 09/24/19 25 09/24/2024 COMP. METAB OLIC PANEL (14) bilirubin, total 0.2 mg/dL 0.0-1. 2 normal Not Available [facility] ([facility]) [address] [facility] [place], [address], 09/30/2024 16:13:14 09/24/19 25 09/24/2024 COMP. METAB OLIC PANEL (14) alkaline phosphatase 129 IU/L 44-121 above high normal Not Available [facility] ([facility]) [address] [facility], [place], [address], 09/30/2024 16:13:14 09/24/19 25 09/24/2024 COMP. METAB OLIC PANEL (14) AST (SGOT) 20 IU/L 0-40 normal Not Available [facility] ([facility]) [address] [facility] [place], [address], 09/30/2024 16:13:14 09/24/19 25 09/24/2024 COMP. METAB OLIC PANEL (14) ALT (SGPT) 12 IU/L 0-32 normal Not Available [facility] ([facility]) [address] [facility], [place], [address], 09/30/2024 16:13:14 09/24/19 25 09/30/2024 VITAM IN E vitamin E(alpha tocopherol) 16.1 mg/L 7.0-25 .1 Not Available [facility] ([facility]) [address] [facility], [place], [address], 09/30/2024 16:13:15 09/24/19 25 09/30/2024 VITAM IN E vitamin E(gamma tocopherol) 1.5 mg/L 0.5-5. 5 Refer ence inter vals for alpha and gamma -toco phero l deter mined from [facility] Nutri tion Exami natio n Surve y, 2004- 2005. Indiv idual s with alpha -toco phero l level s less than 5.0 mg/L are consi dered vitam in E defic ient. Not Available [facility] ([facility]) [address] [facility], [place], [address], 09/30/2024 16:13:15 09/24/19 25 09/24/2024 FOLAT E (FOLI C ACID) , SERUM folate (folic acid), serum >20.0 NG/mL >3.0 A serum folat e valarie ntrat ion of less than 3.1 ng/mL is consi dered to repre sent clini kaden defic iency . Not Available [facility] ([facility]) [address] [place], [address], 09/30/2024 16:13:16 09/24/19 25 09/30/2024 VITAM IN A, SERUM vitamin A 78.3 ug/dL 20.1-6 2.0 above high normal Refer [...] Drug Admin istra tion. Not Available [facility] ([facility]) [address] [facility], [place], [address], 09/30/2024 16:13:16 09/24/19 25 09/24/2024 VITAM IN D, 25-HY DROXY vitamin D, 25-hydroxy 54.6 NG/mL 30.0-1 00.0 Vitam in D defic [...] Won dominguez [place]: The Natio [facility]al [facility] Press . 2. Hector varghese MF, Dick rivera [place], Evon off-F doyle i PINEDA, et al. Evalu ation , treat ment, and preve ntion of vitam in D defic iency : an Endoc rine Socie ty clini kaden pract ice guide line. JCEM. 2010; 96(7) :1911 -30. Not Available [facility] ([facility]) [address] [facility], [place], [address], 09/30/2024 16:13:17 09/24/19 25 09/29/2024 VITAM IN B1 (THIA MINE) , BLOOD vit. B1, whole blood 208.8 nmol/ L 66.5-2 00.0 above high normal Not Available [facility] ([facility]) [address] [facility], [place], [address], 09/30/2024 16:13:18 09/24/19 25 09/30/2024 METHY LMALO ENRIQUE ACID, SERUM methylmaloni c acid, serum 297 nmol/ L 0-378 Not Available [facility] ([facility]) [address] [facility], [place], [address], 09/30/2024 16:13:18 09/24/19 25 09/24/2024 PREAL BUMIN prealbumin 28 mg/dL 12-34 Not Available [facility] ([facility]) [address] [facility], [place], [address], 09/30/2024 16:13:20 Result Notes None recorded. Problems Name Problem SNOMED Code Status Onset Date Resolution Date Notes Provider Name and Address Organization Details Recorded Time Heartburn 47199438 Active 2023 LLOYD Ayala [address], [place], [address] , [place] [facility] [place] 4 14:30:21 Disorder of function of stomach 321248989 Active 2024 LLOYD Ayala [address], [place], [address] , [place] - [facility] [place] [facility] [place] 5 08:50:42 Type 2 diabetes mellitus 56275464 Active 2024 LLOYD Ayala [address], [place], [address] , [place] - [facility] [place] 5 14:30:05 Cigarette smoker 67371939 Active 2024 LLOYD Ayala [address], [place], [address] , [place] - [facility] [place] [facility] [place] 5 14:15:30 Hypertensive disorder 63335188 Active 2022 LLOYD Ayala [address], [place], [address] , [place] - [facility] [place] [facility] [place] 3 09:07:45 Type 2 diabetes mellitus without complication 441881411 Active 2022 LLOYD Ayala [address], [place], [address] , [place] - [facility] [place] [facility] [place] 3 13:27:25 Chronic kidney disease stage 4 869320182 Active 2022 LLOYD Ayala [address], [place], [address] , [place] - [facility] [place] [facility] [place] 3 13:27:27 Cobalamin deficiency 537624735 Active 2023 LLOYD Ayala [address], [place], [address] , [place] - [facility] - [place] [facility] [place] 4 12:44:41 Intentional weight loss 154701344 Active 2023 LLOYD Ayala [address], [place], [address] , [place] - [facility] [place] [facility] [place] 4 12:44:50 Problem Notes None recorded. Procedures Surgical History Date Name Laterality Status Provider Name and Address Organization Details Recorded Time 03/10/20 23 laparoscopic sleeve gastrectomy completed Munira LOVE - [facility] - [place] & [place] 03/17/2023 08:41:08 04/27/19 00 Other completed Munira Giron [facility] - [place] & [place] 03/17/2023 08:26:12 04/27/18 98 Abdominal Surgery completed Munira Giron [facility] - [place] & [place] 03/17/2023 08:26:12 section completed Shaye LOVE - [facility] & [place] 07/21/2022 10:54:27 procedure on urinary bladder completed LLOYD Ayala [address], [place], [address], [facility] & [place] 07/24/2022 12:04:13 incision and drainage completed LLOYD Ayala [address], [place], [address], [facility] & [place] 07/24/2022 12:04:42 Carpal tunnel surgery completed Adriana Kelloggrishi KATE - [facility] & [place] 03/04/2023 07:45:37 Cataract Surgery completed Libby Henok Varghese Harriet - [facility] & [place] 03/10/2024 14:17:50 Imaging Results None recorded. Procedure Notes None recorded. Medical Equipment None Reported. Allergies No known drug allergies Medications Name Sig Start Date Stop Date Status Note LastModified by Organization Details LastModified Time Prescriptio n - Renewal active Not Available Not Available Not Available cyclobenzap rine 10 mg tablet 09/23 completed [...] active Not Available Not Available Not Available senna 8.6 mg tablet TAKE 1 TABLET BY MOUTH ONCE A DAY NEEDED FOR CONSTIPAT ION active Not Available Not Available No t Available prednisone 20 mg tablet 12/20 completed [...] Available Not Available famotidine 20 mg tablet TAKE 1 TABLET BY MOUTH 2 TIMES A DAY active Not Available Not Available No t Available prednisolon e acetate 1 % eye drops,suspe [...] Available omeprazole 20 mg capsule,del ayed release TAKE 1 CAPSULE BY MOUTH ONCE DAILY active Not Available Not Available No t Available mupirocin 2 % topical ointment 03/04 completed [...] Available Not Available Not Available BD Ultra-Fine Short Pen Needle 31 gauge x 09/09 USE DIRECTED active Not Available Not Available No t Available cholecalcif mendoza (vitamin D3) 25 mcg (1,000 unit) tablet TAKE 1 TABLET BY MOUTH ONCE A DAY 09/23 completed Not Available Not Available Not Available Lantus Solostar U-100 Insulin 100 unit/mL (3 mL) subcutaneou s pen INJECT 10 UNITS SUBCUTANE OUSLY AT BEDTIME active Not Available Not Available No t Available Lantus Solostar U-100 Insulin active Not Available Not Available Not Available diclofenac 1 % topical gel active Not Available Not Available Not Available Vitamin D3 50 mcg (2,000 unit) capsule TAKE ONE CAPSULE BY MOUTH ONCE A DAY FOR SUPPLEMEN T 09/23 completed Not Available Not Available Not Available OneTouch Verio test strips FOR DIABETES. CHECK SUGAR 2 TIMES A DAY OR DIRECTED active Not Available Not Available No t Available lidocaine 5 % topical ointment 09/23 [...] Available Not Available Not Available Dexcom G6 Non Profit Job Titles 06/16 completed Not Available Not Available Not [...] Available OneTouch Delica Plus Lancet 33 gauge USE directed 2 TIMES A DAY active Not Available Not Available No t Available Sutab 1.479-0.188 -0.225 gram tablet active [...] index (BMI) Body weight Heart rate Systolic And Diastolic Provider Name and Address Organization Details Last Updated DateTime 4 165.1 cm 97.6 [degF] 29.8 kg/m2 55570.7 5 g 78 /min 167/95 mm[Hg] Abdulaziz carpenter [facility] & [place] 4 13:41:27 Date Recorded Body height Body temperature Heart rate Body mass index (BMI) Body weight Systolic And Diastolic Provider Name and Address Organization Details Last Updated DateTime 5 165.1 cm 97.7 [degF] 71 /min 27 kg/m2 86666.6 8 g 151/91 mm[Hg] Makayla Bermudez [facility] & [place] 5 13:56:43 Date Recorded Body height Heart rate Body temperature Body mass index (BMI) Body weight Systolic And Diastolic Provider Name and Address Organization Details Last Updated DateTime 4 165.1 cm 68 /min 96.8 [degF] 27.8 kg/m2 59048.2 1 g 152/85 mm[Hg] [facility] & [place] 4 14:59:07 Date Recorded Body height Heart rate Body temperature Body mass index (BMI) Body weight Systolic And Diastolic Provider Name and Address Organization Details Last Updated DateTime 4 165.1 cm 71 /min 98.2 [degF] 27.9 kg/m2 67731.7 2 g 188/94 mm[Hg] Libby Bedford KATE [facility] & [place] 4 14:18:05 Social History Question Answer Notes LastModified by Organizat ion Details LastModified Time Tobacco Smoking Status Former Smoker 1yr nonsmoker LLOYD Ayala [address] [facility], [place], [address], [facility] & [place] 07/24/2022 12:03:15 Are You Blind Or Do You Have Difficulty Seeing? No [email or web address] Information not available 03/17/2023 When Did You Quit Smoking? 1-5yearssi ncelastcig arette 1 Yr [email or web address] Information not available 06/16/2023 What Was The Date Of Your Most Recent Tobacco Screening? 10/23/2022 Information not available 03/17/2023 Are You Passively Exposed To Smoke? Yes [email or web address] Information not available 03/17/2023 How Many Years Have You Smoked Tobacco? 30 [email or web address] Information not available 03/17/2023 Sex: Unknown Functional Status Question Answer Note LastModified by Organizat ion Details LastModified Time Do you use any illicit or recreational drugs? No Information not available 07/21/2022 What is your level of alcohol consumption? None [email or web address] Information not available 07/21/2022 Do you or have you ever used smokeless tobacco? [id number] [email or web address] Information n ot available 03/17/2023 What is your exercise level? None [email or web address] Information not available 03/17/2023 Mental Status Question Answer Note LastModified by Organization D etails LastModified Time Do you feel stressed (tense, restless, nervous, or anxious, or unable to sleep at night)? [id number] [email or web address] Information not available 03/17/2023 Family History Relationship Description Onset Age of this Age Resolved Age Notes LastModified by Organization Details LastModified Time Father Obesity [email or web address] Not availa ble 07/21/2022 10:52:55 Father Diabetes mellitus [email or web address] Not available 2023 12:24:14 Father Cerebrovascu lar accident [email or web address] Not available 07/21/2022 10:53:27 Mother Obesity [email or web address] Not availa ble 07/21/2022 10:52:56 Mother Diabetes mellitus [email or web address] Not available 2023 12:24:14 Mother Hypertensive disorder [email or web address] Not available 10:53:14 Mother Cerebrovascu lar accident Not available 07/21/2022 10:53:27 Medical History Condition [...] completed Libby [place]ace, [place] - [facility] - [facility] 04/14/2023 11:08:17 influenza, unspecified formulation 02/23/2024 completed Libby [place], [place] - [facility] - [facility] 03/10/2024 14:17:28 Past Encounters Encounter ID Performer Location Encounter Start Date Encounter Closed Date Diagnosis/Indication Diagnosis SNOMED-CT Code Diagnosis ICD10 Code Diagnosis Note [id number] LLOYD Ayala [facility] [address] [place] [address] 07/24/2022 08:11:43 07/24/2022 13:11:17 Obesity 174569505 E66.9 The patient will be scheduled for [...] testing has been completed Hypertensive disorder 38 325787 I10 Chronic ki dney disease stage 4 488406753 N18.4 we will ask patient for nephrologi st support statement including max protein advisement Type 2 asim betes mellitus without complication 147600879 E11.9 Tobacco user 788626643 Z 72.0 Discussion at length today regarding [...] testing requiremen t explained. Patient voices understand [facility] [id number] MARIAN ACKERMAN, BRENDAN, LD [facility] [address] [facility] [address] [place] [address] 08/22/2022 13:18:29 08/22/2022 14:52:53 Chronic kidney disease stage 4 302774494 N18.4 Patient says she will eventually need a kidney transplant but must lose weight to qualify Obesity 487052448 E66.9 Prescribin g supervised diet to monitor patient compliance with diet and exercise, intentions of WLS in the future [id number] MARIAN ACKERMAN, BRENDAN, LD [facility] [address] [facility] [address] [place] [address] 09/18/2022 13:41:02 09/18/2022 16:08:46 Hypertensive disorder 57277895 I10 HTN is a comorbidit y of morbid obesity and further indicates pt as a fit for WLS. Chronic ki dney disease stage 4 481477600 N18.4 Patient says she will eventually need a kidney transplant but must lose weight to qualify. Type 2 asim betes mellitus without complication 336642068 E11.9 T2DM is a comorbidit y of morbid obesity and further indicates pt as a fit for WLS. Obesity 130238671 E66.9 Prescribin g supervised diet to monitor patient compliance with diet and exercise, intentions of WLS in the future [id number] MARIAN KESSLER BS, RDN, [facility] [address] [facility] [address] [place] [address] 10/24/2022 12:56:12 10/24/2022 13:12:02 Chronic kidney disease stage 4 199272172 N18.4 Patient says she will eventually need a kidney transplant but must lose weight to qualify. Hypertensive disorder 38 022356 I10 HTN is a comorbidit y of morbid obesity and further indicates pt as a fit for WLS. Type 2 asim betes mellitus without complication 433286416 E11.9 T2DM is a comorbidit y of morbid obesity and further indicates pt as a fit for WLS. Obesity 013761014 E66.9 Prescribin g supervised diet to monitor patient compliance with diet and exercise, intentions of WLS in the future [id number] Phil Mars DO [facility] [address] [place] [address] [address] [place] [address] 03/04/2023 07:18:08 03/04/2023 13:25:31 Morbid obesity 268277775 E66.01 Pre-surger y evaluation 305341122 Z01.818 Postoperative pain 59645 9007 G89.18 Chronic ki dney disease stage 4 680547685 N18.4 Type 2 asim betes mellitus without complication 667792135 E11.9 Hypertensive disorder 38 139593 I10 [id number] LLOYD Ayala [facility] n [facility] [address] [place] [address] [address] [place] [address] 03/17/2023 08:07:05 03/17/2023 10:16:18 History of gastrectomy 980029372 Z90.3 Type 2 asim betes mellitus without complication 044887230 E11.9 Patient advised to continue to monitor blood sugars and discuss management with PCP/endocr inologist. Chronic ki dney disease stage 4 187162128 N18.4 Patient is to see her nephrologi st today. We will give patient an order for BMP Mag and phosphorus and she can have done with any labs required from nephrologi st. Hypertensive disorder 38 047921 I10 [id number] LLOYD Ayala [facility] [address] [facility] [address] [place] [address] 04/14/2023 10:56:55 04/14/2023 11:25:02 Hypertensive disorder 23505293 I10 Chronic ki dney disease stage [address] has limited her to 1.5 liter of fluid daily Type 2 asim betes mellitus without complication 841755290 E11.9 Patient advised to continue to monitor blood sugars and discuss management with PCP/endocr inologist. History of gastrectomy 054010621 Z90.3 Long discussion regarding expected p.o. tolerance. [...] to correct any vitamin deficienci es. At [facility] ed risk of nutritional deficit 695461760 Z91.89 [id number] MAYRA ANTONIO RDN, LD [facility] [address] [facility] [address] [place] [address] 04/14/2023 11:29:35 04/15/2023 10:11:28 History of bariatric surgical procedure 861069978 Z98.84 Discussed lifestyle modificati ons for optimal weight loss and nutrition Inadequate intake of energy 225336414 E46 Increase kcal to 800 kcal/day. Provided coupon for protein supplement that will assist with this. Advised to drink 1/2 since they contain 30 g protein/se rving and this is already 1/2 of her protein needs for the day. Chronic ki dney disease stage 4 736693910 N18.4 Recommends 60 g protein/da y (0.6 g/kg bw)Continu e with 50 oz fluid/day per nephrologi stMartin defer to nephrologi st for modificati ons with vitamin regime [id number] LLOYD Ayala [facility] [address] [place] [address] 06/16/2023 12:17:59 06/16/2023 14:20:30 Hypertensive disorder 99990659 I10 Borderline blood pressure in office today. Patient is to follow up with PCP. She states she has an appointmen t with her PCP tomorrow. Type 2 asim betes mellitus without complication 637603071 E11.9 Improvemen t status post weight loss. Patient is now off of insulin. We are checking A1c. Patient advised to continue to monitor blood sugars and discuss management with PCP/endocr inologist. Chronic ki dney disease stage [address] has limited her to 1.5 liter of fluid daily Intentiona l weight loss 912328293 R63.8 Patient is doing very well status post sleeve gastrectom y. Encouraged patient to continue focus on high-prote in diet. Encouraged continued exercise. We will have patient follow up in 3 months. History of gastrectomy 465394150 Z90.3 Advised qid intake 50% protein 900-1000 [...] any vitamin deficienci es. Cobalamin deficiency 190 498399 E53.8 Patient is to continue vitamin supplement ation. We are rechecking bariatric lab panel today Serum ferr itin above reference range 988434245 R77.8 We are rechecking bariatric lab panel today [id number] LLOYD Ayala [facility] n [facility] [address] [facility] [address] [place] [address] 09/18/2023 13:24:17 09/18/2023 14:19:05 Chronic kidney disease stage [address] has limited her to 1.5 liter of fluid dailyPatie nt is seeing improvemen t of CKD since weight loss surgery. Encouraged patient to continue to follow with her kidney doctors. Type 2 asim betes mellitus without complication 134862550 E11.9 Improvemen t status post weight loss. Patient advised to continue to monitor blood sugars and discuss management with PCP/endocr inologist. Hypertensive disorder 38 056786 I10 Borderline blood pressure in office today. Patient is to follow up with PCP. Cobalamin deficiency 190 451159 E53.8 Patient is to continue vitamin supplement ation. We are rechecking bariatric lab panel today Intentiona l weight loss 709505481 R63.8 Patient is doing very well status post sleeve gastrectom y. Encouraged patient to continue focus on high-prote in diet. Encouraged continued exercise. We will have patient follow up in 3 months. History of gastrectomy 945933243 Z90.3 Advised qid intake 50% protein 1100 [...] to correct any vitamin deficienci es. At [facility] risk of nutritional deficit 670156632 Z91.89 [id number] MAYRA ANTONIO RDN, LD [facility] [address] [facility] [address] [place] [address] 09/18/2023 14:17:35 09/18/2023 15:04:08 Obesity 791701196 E66.9 1000 kcal/day60 g protein/da y Chronic ki dney disease stage 4 038309812 N18.4 improving statusReco mmends 60-70 g protein/da y (0.6 g/kg bw)Continu e with 50 oz fluid/day per nephrologi stMartin defer to nephrologi st for modificati ons with vitamin regimeOk to do a few fries 1x/month as long as protein and kcal goals are met History of bariatric surgical procedure 359897359 Z98.84 Discussed lifestyle modificati ons for optimal weight loss and nutrition [id number] LLOYD Ayala [facility] [address] [place] [address] 12/21/2023 14:45:22 12/21/2023 15:23:45 Hypertensive disorder 86565782 I10 Elevated blood pressure in office today. Patient is to follow up with PCP. Type 2 asim betes mellitus without complication 897055776 E11.9 Improvemen t status post weight loss. Patient advised to continue to monitor blood sugars and discuss management with PCP/endocr inologist. Cobalamin deficiency 190 972684 E53.8 Patient is to continue vitamin supplement ation. We are rechecking bariatric lab panel. Patient states she will have panel drawn next week when she is seen by PCP Chronic ki dney disease stage [address] has limited her to 1.5 liter of fluid dailyPatie nt is seeing improvemen t of CKD since weight loss surgery. Encouraged patient to continue to follow with her kidney doctors. Intentiona l weight loss 318426852 R63.8 Patient is doing very well status post sleeve gastrectom y. Encouraged patient to continue focus on high-prote in diet. Encouraged continued exercise. We will have patient follow up in 3 months. History of gastrectomy 205001333 Z90.3 Advised qid intake 50% protein 12-1300 [...] contacted to correct any vitamin deficienci es. [id number] LLOYD Ayala [facility] [address] [place] [address] 03/10/2024 14:09:25 03/10/2024 14:52:45 Type 2 diabetes mellitus without complication 055559142 E11.9 Improvemen t status post weight loss.Angelina nt advised to continue to monitor blood sugars and discuss management with PCP/endocr inologist. Chronic ki dney disease stage [address] has limited her to 1.5 liter of fluid dailyPatie nt is seeing improvemen t of CKD since weight loss surgery.En couraged patient to continue to follow with her kidney doctors. Hypertensive disorder 38 514806 I10 Elevated blood pressure in office today. Patient is to follow up with PCP. Heartburn 53856846 R12 We will restart patient on omeprazole once daily. Patient may also take famotidine as needed. She is to report any worsening reflux symptoms Intentiona l weight loss 487006897 R63.8 Patient is doing very well status post sleeve gastrectom y. Encouraged patient to continue focus on high-prote in diet.Angelina antunez is to meet with dietitian today for typical 12 month postop dietary supportEnc ouraged continued exercise. We will have patient follow up in 3 months. History of gastrectomy 537919322 Z90.3 Advised qid intake 50% protein 1000 [...] to correct any vitamin deficienci es. At [facility] risk of nutritional deficit 758318454 Z91.89 Cobalamin deficiency 190 051625 E53.8 Patient is to continue vitamin supplement ation. We are rechecking bariatric lab panel. Patient states she will have panel drawn next week when she is seen by PCP [id number] JAYME GUZMAN RD [facility] [address] [facility] [address] [place] [address] 03/10/2024 14:39:35 03/10/2024 15:07:26 Dietary management surveillance 309783979 Z71.3 [id number] LLOYD Ayala [facility] n [facility] [address] [facility] [address] [place] [address] 09/23/2024 13:35:41 09/23/2024 14:27:13 Hypertensive disorder 97387887 I10 Elevated blood pressure in office today. Patient is to follow up with PCP. Type 2 asim betes mellitus 71485463 E11.22 Patient recently restarted on LantusPati ent advised to continue to monitor blood sugars and discuss management with PCP/endocr inologist. Chronic ki dney disease stage [address] has limited her to 1.5 liter of fluid dailyPatie nt is seeing improvemen t of CKD since weight loss surgery.En couraged patient to continue to follow with her kidney doctors. Cobalamin deficiency 190 656632 E53.8 Patient is to continue vitamin supplement ation. We are rechecking bariatric lab panel. We will contact patient to continue to manage deficiency Intentiona l weight loss 233838260 R63.8 Patient is doing very well status post sleeve gastrectom y. Encouraged patient to refocus on bariatric basics. Advised she track carbs calories and protein. Suggested 4 small meals daily. Advised 1000 calories daily and 80 g of protein dailyPatie nt is to meet with dietitian todayEncou raged continued exercise. We will have patient follow up in 3 months. History of gastrectomy 125745121 Z90.3 Advised qid intake 50% protein 1000 [...] to correct any vitamin deficienci es. At [facility] risk of nutritional deficit 521330502 Z91.89 Heartburn 54871356 R12 We will have patient continue omeprazole 20 mg q.a.m. and famotidine 20 mg q.h.s.. She is to report any breakthrou gh reflux issues on this current regimen. Follow up 3 months Cigarette smoker 0722253 7 F17.210 Discussion at length today regarding [...] Hernandez Member ID Guarantor Name 09/20/2024 1 [facility] (MEDICAID HMO) Melanie Mayo [id number] Melanie Healy Notes Date Note Type Note [...] insulin. No DM . 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 He [...] meal intake. Reports 60/dy protein intake. Her naval engineer has limited her to 1.5 liter of [...] have run 110. She is not seen glass checker. She is appointment with her naval engineer later today.Patient is doing well. Taking recommended vitamins and PPI.Pt Denies : abdominal pain, prandial issues Nausea, Vomiting, bowel or bladder issuesPath benignPt is happy with their quality of life after Weight loss Surgery. LLOYD Ayala [address], [place], [address], [facility] - NT - [place] & [place] 09/18/2023 14:18:45 09/18/2023 text/html A: RDN met w/ pt for f/up s/p sleeve 03-10-23. Pt weight at MD Consult: 256.9#Current Weight: 179.2#Total Weight Change: -77.7# Inbody Reveals:BMR = 1387 kcalChange in SMM = +0.7#Change in PBF = -6.6% Notes on weight: desires to continue weight loss at this time Signs/SymptomsN/V/C/ D: Denies Pertinent Labs/Meds/Vitamin regimen: Bariatric MVI, D3. Noted CKDIV - naval engineer limited pt to 1.5 L/day (50 oz). [...] out occasionally. MAYRA ANTONIO RDN, LD [address], [place], [address], [facility] - NT - [place] & [place] 09/18/2023 15:05:58 12/21/2023 text/html Patient presents for 9mth Post-Op Check s/p LSG 03/10/23Patient presents the office today for routine follow-up status post bariatric surgery. Patient doing well. Reports q.i.d. small meal intake. Reports >70g/dy protein intake and good hydration. Calories - not tracking Walking for exercise.Taking routine vitamins as advised. Hx of vit E B12 deficiency past ferritin elevationPMH HTN DM [id number]/gastro esophageal reflux: controlled on famotidinePt Denies : [...] insulin. No DM . 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 He [...] meal intake. Reports 60/dy protein intake. Her naval engineer has limited her to 1.5 liter of [...] have run 110. She is not seen glass checker. She is appointment with her naval engineer later today.Patient is doing well. Taking recommended vitamins and PPI.Pt Denies : abdominal pain, prandial issues Nausea, Vomiting, bowel or bladder issuesPath benignPt is happy with their quality of life after Weight loss Surgery. LLOYD Ayala [address], [place], [address], [place] - [facility] - [place] [facility] [place] 12/21/2023 15:22:52 03/10/2024 text/html Patient presents for [...] B12 deficiency past ferritin elevationPMH HTN DM [id number]/gastro esophageal reflux: controlled on famotidinePt Denies : [...] insulin. No DM . 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 He [...] meal intake. Reports 60/dy protein intake. Her naval engineer has limited her to 1.5 liter of [...] have run 110. She is not seen glass checker. She is appointment with her naval engineer later today.Patient is doing well. Taking recommended vitamins and PPI.Pt Denies : abdominal pain, prandial issues Nausea, Vomiting, bowel or bladder issuesPath benignPt is happy with their quality of life after Weight loss Surgery. LLOYD Ayala [address], [place], [address], [facility] & [place] 03/10/2024 14:51:27 03/10/2024 text/html RDN met w/ [...] 22 Est. daily fluid intake: 42 oz (Pool Table Operator wants patient at 40 oz.) Meal Frequency/Pattern: 3x/day - tries not to snack Drinks: bubly, zero gatorade (mostly after walking), sugar free tea and water Foods Not Tolerated: none Additional notes/concerns: JAYME GUZMAN RD [address], [place], [address], [facility] & [place] 03/10/2024 15:07:08 09/23/2024 text/html Patient presents for [...] loss Surgery. LLOYD Ayala [address], [place], [address], [facility] & [place] 09/23/2024 14:30:45 OBGyn Episode No OBEpisode recorded.
--- OUTSIDE RECORDS SUMMARY | 2024-11-04 07:41 | XMS_ITS | Encounter Summary ---
Author Organization [facility] Address [address] [place] [address] Care Team Providers Care Sales Activity Manager Name Role Phone Al Fischer MD Primary Care Provider [phone] Lynda Spencer MD Unavailable [phone] Dyllan Gil APRN Primary Care Provider [phone] Reason for Visit * Reason Comments Med Refill Encounter Details Date Type Department Care Team (Late st Contact Info) Description 08/21/2021 Refill [facility] Endocrinology [address] [place] [address] Makayla Bahena APRN 2195 [facility] 125 [place] [address] Social History Tobacco Use Types [...] Encounters Date Type Department Care Team (Late Contact Info) Description 11/16/2024 1:20 PM EDT Office Visit [facility] Nephrology, Bone & Mineral Metabolism [address] [facility], [address] [place] [address] 02/01/2025 2:15 PM EDT Office Visit [facility] [address] [place] [address] Munira Keen MD 110 [facility] 550 [place] [address] documented as of this encounter Visit Diagnoses Not on filedocumented in this encounter Additional Health Concerns Assessment Noted Time A fall risk assessment has been complete d for the patient 01/31/2021 2:02 PM EDT documented as of this encounter Care Teams Sales Activity Manager Relationship Specialty Start Date End Date Al Fischer MD [address] [place] [address] PCP - General 09/07/20 06/10/22 Dyllan Gil APRN [address] [place] [address] PCP - General 06/11/22 Lynda Spencer MD 135 [address] [facility] 401 [place] [address] Referring Physician Nephrology 06/09/22 documented as of this encounter
--- OUTSIDE RECORDS SUMMARY | 2024-11-04 07:41 | XMS_ITS | Encounter Summary ---
Author Organization [facility] Address [address] [place] [address] Care Team Providers Care Medical Claims Analyst Name Role Phone Lynda Spencer MD Unavailable [phone] Dyllan Gil APRN Primary Care Provider [phone] Encounter Details Date Type Department Care Team (Latest Contact Info) Description 10/26/2024 Travel Social History Tobacco Use Types Packs/Day [...] Description 11/16/2024 1:20 PM EDT Office Visit [facility] Nephrology, Bone & Mineral Metabolism [address], [address] [place] [address] 02/01/2025 2:15 PM EDT Office Visit [facility] [address] [place] [address] Munira Keen MD 110 [facility] 550 [place] [address] documented as of this encounter Visit Diagnoses Not on filedocumented in this encounter Additional Health Concerns Assessment Noted Time A fall risk assessment has been complete d for the patient 10/26/2024 10:01 AM EDT A Body Mass Index follow-up plan has been documented for the patient 10/26/2024 10:22 AM EDT documented as of this encounter Care Teams Medical Claims Analyst Relationship Specialty Start Date End Date Dyllan Gil APRN [address] [place] [address] PCP - General 06/11/22 Lynda Spencer MD [address] [place] [address] Referring Physician Nephrology 06/09/22 documented as of this encounter
--- OUTSIDE RECORDS SUMMARY | 2024-11-04 07:41 | XMS_ITS | Encounter Summary ---
Author Organization [facility] Address [address] [place] [address] Care Team Providers Care Slip Laster Name Role Phone Lynda Spencer MD Unavailable [phone] Dyllan Gil APRN Primary Care Provider [phone] Reason for Visit * Reason Comments Med Refill Encounter Details Date Type Department Care Team (Late st Contact Info) Description 10/13/2022 Refill [facility] Endocrinology [address] [place] [address] Makayla Bahena APRN [address] [address] Social History Tobacco Use Types [...] Description 11/16/2024 1:20 PM EDT Office Visit [facility] Nephrology, Bone & Mineral Metabolism [address] [facility], [address] [place] [address] 02/01/2025 2:15 PM EDT Office Visit [facility] [address] [place] [address] Munira Keen MD [address] [place] [address] documented as of this encounter Visit Diagnoses Not on filedocumented in this encounter Additional Health Concerns Assessment Noted Time A fall risk assessment has been complete d for the patient 10/09/2022 12:42 PM EDT A Body Mass Index follow-up plan has been documented for the patient 08/28/2022 2:04 PM EDT documented as of this encounter Care Teams Slip Laster Relationship Specialty Start Date End Date Dyllan Gil APRN [address] [place] [address] PCP - General 06/11/22 Lynda Spencer MD [address] [address] Referring Physician Nephrology 06/09/22 documented as of this encounter
--- OUTSIDE RECORDS SUMMARY | 2024-11-04 07:42 | XMS_ITS | Encounter Summary ---
Author Organization Healthcare Address [address] [place] [address] Care Team Providers Care Finish Filer Name Role Phone Lynda Spencer MD Unavailable [phone] Dyllan Gil APRN Primary Care Provider [phone] Encounter Details Date Type Department Care Team (Late st Contact Info) Description 10/10/2024 Telephone [facility] Plastic & Reconstructive Surgery [address] [place] [address] Derick Horta Social History Tobacco Use [...] Description 11/16/2024 1:20 PM EDT Office Visit [facility] Nephrology, Bone & Mineral Metabolism [address], [address] [place] [address] 02/01/2025 2:15 PM EDT Office Visit [facility] [address] [place] [address] Munira Keen MD 110 [facility] 550 [place] [address] documented as of this encounter Visit Diagnoses Not on filedocumented in this encounter Additional Health Concerns Assessment Noted Time A fall risk assessment has been complete d for the patient 08/24/2024 1:00 PM EDT A Body Mass Index follow-up plan has been documented for the patient 08/24/2024 2:24 PM EDT documented as of this encounter Care Teams Finish Filer Relationship Specialty Start Date End Date Dyllan Gil APRN [address] [place] [address] PCP - General 06/11/22 Lynda Spencer MD [address] [place] [address] Referring Physician Nephrology 06/09/22 documented as of this encounter
--- OUTSIDE RECORDS SUMMARY | 2024-11-04 07:42 | XMS_ITS | Encounter Summary ---
Author Organization Healthcare Address [address] [place] [address] Care Team Providers Care Curing Machine Operator Name Role Phone Lynda Spencer MD Unavailable [phone] Dyllan Gil APRN Primary Care Provider [phone] Encounter Details Date Type Department Care Team (Late st Contact Info) Description 11/04/2023 Lab Requisition [facility] [address] [place] [address] Stacey Escamilla MD [address] [place] [address] Awaiting organ transplant status Social [...] Description 11/16/2024 1:20 PM EDT Office Visit [facility] Nephrology, Bone & Mineral Metabolism [address] [facility], [address] [place] [address] 02/01/2025 2:15 PM EDT Office Visit [facility] [address] [place] [address] Munira Keen MD 110 [facility] 550 [place] [address] documented as of this encounter [...] LAB BLOOD ORDERABLES Final Resul t [facility] [address] [place] [address], documented in this encounter Visit Diagnoses Diagnosis Awaiting organ transplant status documented in this encounter Additional Health Concerns Assessment Noted Time A fall risk assessment has been complete d for the patient 10/15/2023 3:13 PM EDT A Body Mass Index follow-up plan has been documented for the patient 09/07/2023 4:29 PM EDT documented as of this encounter Care Teams Curing Machine Operator Relationship Specialty Start Date End Date Dyllan Gil APRN [address] [place] [address] PCP - General 06/11/22 Lynda Spencer MD [address] [address] Referring Physician Nephrology 06/09/22 documented as of this encounter
--- OUTSIDE RECORDS SUMMARY | 2024-11-04 07:42 | XMS_ITS | Continuity of Care Document ---
Author Organization [place] [facility] [place] [facility] Bariatrics and Adv Surg Address [address] [place] [address] Care Team Providers Care Steward/Stewardess Banquet Name Role Phone DIALLO PLAZA Primary Care Provider [phone] DEWEY TUTTLE, SANTHOSH Light Rail Vehicle Operator Assessment No assessment recorded. Plan of Treatment Reminders Order Date Submit Date Provider Last Modified By Organization Details Last Modified Time Details Appointments OV EST 20 2024 01:00P LLOYD Quintero Not available Not available Not available Lab CMP, serum or plasma 2024 025 [facility], [address], [address], [place], [address], 09/30/2024 16:13:14 CBC w/ auto diff 2024 025 [facility], [address], [address], [place], [address], 09/30/2024 16:13:13 prealbumi n, serum 2024 025 [facility], [address], [address], [place], [address], 09/30/2024 16:13:20 vitamin D, 25-hydrox y, total, serum 2024 025 [facility], [address], [address], [place], [address], 09/30/2024 16:13:17 iron + TIBC + ferritin, serum 2024 025 [facility], [address], [address], [place], [address], 09/30/2024 16:13:13 vitamin E, serum 2024 025 [facility], [address], [address], [place], [address], 09/30/2024 16:13:15 vitamin A (retinol) , serum 2024 025 [facility], [address], [address], [place], [address], 09/30/2024 16:13:16 folate, serum 2024 025 [facility], [address], [address], [place], [address], 09/30/2024 16:13:16 thiamine, QN, blood 2024 025 [facility], [address], [address], [place], [address], 09/30/2024 16:13:18 methylmal kuldip, QN, serum or plasma 2024 025 [facility], [address], [address], [place], [address], 09/30/2024 16:13:18 Referral None recorded. Procedures None recorded. Surgeries None recorded. Imaging None recorded. Medication Orders omeprazol e 20 mg capsule,d elayed release 2024 025 [facility], [address], [place], [id number], 09/23/2024 14:21:28 famotidin e 20 mg tablet 2024 025 [facility], [address] [address] [place], [id number], 09/23/2024 14:21:27 Patient TargetsNo targets recorded. Patient InstructionsNo instructions recorded. Reason for Referral None Reported. Problems Name Problem SNOMED Code Status Onset Date Resolution Date Notes Provider Name and Address Organization Details Recorded Time Heartburn 17830995 Active 2023 LLOYD Ayala [address], [place], [address] , [place] [facility] [place] & [place] 4 14:30:21 Disorder of function of stomach 255608191 Active 2024 LLOYD Ayala [address], [place], [address] , [place] [facility] [place] 5 08:50:42 Type 2 diabetes mellitus 70153701 Active 2024 LLOYD Ayala [address], [place], [address] , [place] [facility] [place] 5 14:30:05 Cigarette smoker 10702516 Active 2024 LLOYD Ayala [address], [place], [address] , [place] [facility] [place] 5 14:15:30 Hypertensive disorder 18246282 Active 2022 LLOYD Ayala [address], [place], [address] , [place] [facility] [place] 3 09:07:45 Type 2 diabetes mellitus without complication 920065178 Active 2022 LLOYD Ayala [address], [place], [address] , [place] [facility] [place] 3 13:27:25 Chronic kidney disease stage 4 977277007 Active 2022 LLOYD Ayala [address], [place], [address] , [place] [facility] [place] 13:27:27 Cobalamin deficiency 086461572 Active 2023 LLOYD Ayala [address], [place], [address] , [place] [facility] [place] 12:44:41 Intentional weight loss 616969704 Active 2023 LLOYD Ayala [address], [place], [address] , [place] [facility] [place] 12:44:50 Problem Notes None recorded. Procedures Surgical History Date Name Laterality Status Provider Name and Address Organization Details Recorded Time 03/10/20 23 laparoscopic sleeve gastrectomy completed Munira [place] - [facility] & [place] 03/17/2023 08:41:08 04/27/19 00 Other completed Munira LOVE - [facility] & [place] 03/17/2023 08:26:12 04/27/18 98 Abdominal Surgery completed Munira LOVE - [facility] & [place] 03/17/2023 08:26:12 section completed Shaye San [place] - [facility] & [place] 07/21/2022 10:54:27 procedure on urinary bladder completed [address], [place], [address], [place] [facility] [place] 07/24/2022 12:04:13 incision and drainage completed LLOYD Ayala [address], [place], [address], [place] [facility] [place] 07/24/2022 12:04:42 Carpal tunnel surgery completed Adriana Montoya [place] - [facility] & [place] 03/04/2023 07:45:37 Cataract Surgery completed Libby Larios - [facility] & [place] 03/10/2024 14:17:50 Imaging Results None recorded. Procedure [...] Ultra-Fine Short Pen Needle 31 gauge x 5/16 USE DIRECTED active Not Available Not Available [...] Available Not Available Not Available Dexcom G6 [employer] Station Operator 06/16 completed Not Available Not Available Not [...] cm 97.7 [degF] 71 /min 27 kg/m2 04869.6 8 g 151/91 mm[Hg] Makayla Bermudez [facility] & [place] 13:56:43 Social History Question Answer Notes LastModified by Organizat ion Details LastModified Time Tobacco Smoking Status Former Smoker 1yr nonsmoker LLOYD Ayala [address] [facility], [place], [address], [facility] & [place] 07/24/2022 12:03:15 Are You Blind Or Do You Have Difficulty Seeing? No [email or web address] Information not available 03/17/2023 When Did You Quit Smoking? 1-5yearssi ncelastcig arette 1 Yr [email or web address] Information not available 06/16/2023 What Was The Date Of Your Most Recent Tobacco Screening? 10/23/2022 [email or web address] Information not available 03/17/2023 Are You Passively Exposed To Smoke? Yes [email or web address] Information not available 03/17/2023 How Many Years Have You Smoked Tobacco? 30 [email or web address] Information not available 03/17/2023 Sex: Unknown Functional Status Question Answer Note LastModified by Organizat ion Details LastModified Time Do you use any illicit or recreational drugs? No [email or web address] Information not available 07/21/2022 What is your level of alcohol consumption? None [email or web address] Information not available 07/21/2022 Do you or have you ever used smokeless tobacco? [id number] [email or web address] Information n ot available 03/17/2023 What is your exercise level? None Information not available 03/17/2023 Mental Status Question Answer Note LastModified by Organization D etails LastModified Time Do you feel stressed (tense, restless, nervous, or anxious, or unable to sleep at night)? [id number] [email or web address] Information not available 03/17/2023 Family History Relationship Description Onset Age of this Age Resolved Age Notes LastModified by Organization Details LastModified Time Father Obesity [email or web address] Not availa ble 07/21/2022 10:52:55 Father Diabetes mellitus [email or web address] Not available 2023 12:24:14 Father Cerebrovascu lar accident [email or web address] Not available 07/21/2022 10:53:27 Mother Obesity [email or web address] Not availa ble 07/21/2022 10:52:56 Mother Diabetes mellitus [email or web address] Not available 2023 12:24:14 Mother Hypertensive disorder Not available 10:53:14 Mother Cerebrovascu lar accident [email or web address] Not available 07/21/2022 10:53:27 Medical History Condition Response Anxiety Disorder Y Diabetes Y Other Y Obesity Y Back Problems Y Kidney or Bladder Problems Y Hypertension Y COPD Y Kidney Disease Y Gynecological HistoryNo gynecological history recorded. Obstetrics History GPAL:G 0 P 0 0 0 0 Immunizations Vaccine Type Date Status Note Provider Nam e and Address Organization Details Recorded Time influenza, unspecified formulation 03/05/2023 completed Libby [place], [place] [facility] [place] 04/14/2023 11:08:17 influenza, unspecified formulation 02/23/2024 completed Libby [place], [place] [facility] & [place] 03/10/2024 14:17:28 Past Encounters Encounter ID Performer Location Encounter Start Date Encounter Closed Date Diagnosis/Indication Diagnosis SNOMED-CT Code Diagnosis ICD10 Code Diagnosis Note [id number] LLOYD Ayala [facility] [address] [place] [address] 09/23/2024 13:35:41 09/23/2024 14:27:13 Hypertensive disorder 95733808 I10 Elevated blood pressure in office today. Patient is to follow up with PCP. Type 2 asim betes mellitus 86616320 E11.22 Patient recently restarted on LantusPati ent advised to continue to monitor blood sugars and discuss management with PCP/endocr inologist. Chronic ki dney disease stage [address] has limited her to 1.5 liter of fluid dailyPatie nt is seeing improvemen t of CKD since weight loss surgery.En couraged patient to continue to follow with her kidney doctors. Cobalamin deficiency 190 310321 E53.8 Patient is to continue vitamin supplement ation. We are rechecking bariatric lab panel. We will contact patient to continue to manage deficiency Intentiona l weight loss 421622555 R63.8 Patient is doing very well status post sleeve gastrectom y. Encouraged patient to refocus on bariatric basics. Advised she track carbs calories and protein. Suggested 4 small meals daily. Advised 1000 calories daily and 80 g of protein dailyPatie nt is to meet with dietitian todayEncou raged continued exercise. We will have patient follow up in 3 months. History of gastrectomy 447836500 Z90.3 Advised qid intake 50% protein 1000 [...] [facility] risk of nutritional deficit 966211069 Z91.89 Heartburn 75401925 R12 We will have patient continue omeprazole 20 mg q.a.m. and famotidine 20 mg q.h.s.. She is to report any breakthrou gh reflux issues on this current regimen. Follow up 3 months Cigarette smoker 0001911 7 F17.210 Discussion at length today regarding [...] Hernandez Member ID Guarantor Name 09/23/2024 1 [facility] (MEDICAID HMO) Melanie Mayo [id number] Melanie Healy Notes Date Note Type Note Provider Name and Address Organization Details Recorded Time 09/23/2024 text/html Patient presents for 18mth Post-Op Check s/p LSG //23PMH HTN DM CKD4 review of chart shows [...] loss Surgery. LLOYD Ayala [address], [place], [address], [place] [facility] [place] 09/23/2024 14:30:45 OBGyn Episode No OBEpisode recorded.
--- OUTSIDE RECORDS SUMMARY | 2024-11-04 07:42 | XMS_ITS | Encounter Summary ---
Author Organization Healthcare Address [address] [place] [address] Care Team Providers Care Boilermaker Fitter Name Role Phone Lynda Spencer MD Unavailable Dyllan Gil APRN Primary Care Provider [phone] Encounter Details Date Type Department Care Team (Late st Contact Info) Description 03/08/2024 Lab Requisition [facility] [address] [place] [address] Stacey Escamilla MD [address] [place] [address] Awaiting organ transplant status Social [...] Description 11/16/2024 1:20 PM EDT Office Visit [facility] Nephrology, Bone & Mineral Metabolism [address] [facility], [address] [place] [address] 02/01/2025 2:15 PM EDT Office Visit [facility] [address] [place] [address] Munira eKen MD 110 [facility] 550 [place] [address] documented as of this encounter [...] Resul t [facility] [address] [place] [address], documented in this encounter Visit Diagnoses Diagnosis Awaiting organ transplant status documented in this encounter Additional Health Concerns Assessment Noted Time A fall risk assessment has been complete d for the patient 03/03/2024 3:00 PM EST A Body Mass Index follow-up plan has been documented for the patient 03/03/2024 4:28 PM EST documented as of this encounter Care Teams Boilermaker Fitter Relationship Specialty Start Date End Date Dyllan Gil APRN [address] [place] [address] PCP - General 06/11/22 Lynda Spencer MD [address] [address] Referring Physician Nephrology 06/09/22 documented as of this encounter
--- OUTSIDE RECORDS SUMMARY | 2024-11-04 07:42 | XMS_ITS | Encounter Summary ---
Author Organization Healthcare Address [address] [place] [address] Care Team Providers Care Leather Production Machine Operator Name Role Phone Lynda Spencer MD Unavailable [phone] Dyllan Gil APRN Primary Care Provider [phone] Encounter Details Date Type Department Care Team (Late st Contact Info) Description 01/05/2024 Lab Requisition [facility] [address] [place] [address] Stacey Escamilla MD [address] [place] [address] Awaiting organ transplant status Social [...] Description 11/16/2024 1:20 PM EDT Office Visit [facility] Nephrology, Bone & Mineral Metabolism [address] [facility], [address] [place] [address] 02/01/2025 2:15 PM EDT Office Visit [facility] [address] [place] [address] Munira Keen MD 110 [facility] [address] [place] [address] documented as of this encounter [...] MD LAB BLOOD ORDERABLES Final Resul t [facility] [address] [place] [address], documented in this encounter Visit Diagnoses Diagnosis Awaiting organ transplant status documented in this encounter Additional Health Concerns Assessment Noted Time A fall risk assessment has been complete d for the patient 10/15/2023 3:13 PM EDT A Body Mass Index follow-up plan has been documented for the patient 12/23/2023 2:37 PM EDT documented as of this encounter Care Teams Leather Production Machine Operator Relationship Specialty Start Date End Date Dyllan Gil APRN [address] [place] [address] PCP - General 06/11/22 Lynda Spencer MD [address] [address] Referring Physician Nephrology 06/09/22 documented as of this encounter
--- OUTSIDE RECORDS SUMMARY | 2024-11-04 07:42 | XMS_ITS | Encounter Summary ---
Author Organization Healthcare Address [address] [place] [address] Care Team Providers Care Driveway Sealer Name Role Phone Lynda Spencer MD Unavailable [phone] yDllan Gil APRN Primary Care Provider [phone] Encounter Details Date Type Department Care Team (Late st Contact Info) Description 10/07/2024 Telephone [facility] Plastic & Reconstructive Surgery [address] [place] [address] Derick Horta Social History Tobacco Use [...] Metabolism [address], [address] [place] [address] 02/01/2025 2:15 PM EDT Office Visit [facility] [address] [place] [address] Munira Keen MD 110 [facility] [address] [place] [address] documented as of this encounter Visit Diagnoses Not on filedocumented in this encounter Additional Health Concerns Assessment Noted Time A fall risk assessment has been complete d for the patient 08/24/2024 1:00 PM EDT A Body Mass Index follow-up plan has been documented for the patient 08/24/2024 2:24 PM EDT documented as of this encounter Care Teams Driveway Sealer Relationship Specialty Start Date End Date Dyllan Gil APRN [address] [place] [address] PCP - General 06/11/22 Lynda Spencer MD [address] [place] [address] Referring Physician Nephrology 06/09/22 documented as of this encounter
--- OUTSIDE RECORDS SUMMARY | 2024-11-04 07:42 | XMS_ITS | Encounter Summary ---
Author Organization [facility] Address [address] [place] [address] Care Team Providers Care Multimedia Authoring Specialist Name Role Phone Lynda Spencer MD Unavailable [phone] Dyllan Gil APRN Primary Care Provider [phone] Reason for Visit * Reason Comments Med Refill Encounter Details Date Type Department Care Team (Late st Contact Info) Description 03/25/2023 [facility] [address] [place] [address] Makayla Bahena APRN [address] [address] Social History Tobacco Use Types [...] Description 11/16/2024 1:20 PM EDT Office Visit [facility] Nephrology, Bone & Mineral Metabolism [address] [facility], [address] [place] [address] 02/01/2025 2:15 PM EDT Office Visit [facility] [place] [address] [place] [address] Munira Keen MD [address] [facility] [address] [place] [address] documented as of this encounter Visit Diagnoses Not on filedocumented in this encounter Additional Health Concerns Assessment Noted Time A fall risk assessment has been complete d for the patient 03/09/2023 4:01 PM EST A Body Mass Index follow-up plan has been documented for the patient 03/24/2023 1:29 PM EST documented as of this encounter Care Teams Multimedia Authoring Specialist Relationship Specialty Start Date End Date Dyllan Gil APRN [address] [place] [address] PCP - General 06/11/22 Lynda Spencer MD [address] [address] Referring Physician Nephrology 06/09/22 documented as of this encounter
--- OUTSIDE RECORDS SUMMARY | 2024-11-04 07:42 | XMS_ITS | Encounter Summary ---
Author Organization Healthcare Address [address] [place] [address] Care Team Providers Care Mutuel Teller Name Role Phone Lynda Spencer MD Unavailable [phone] Dyllan Gil APRN Primary Care Provider [phone] Encounter Details Date Type Department Care Team (Late st Contact Info) Description 12/07/2023 Lab Requisition [facility] [address] [place] [address] Andrea Pierre MD [address] [place] [address] Awaiting organ transplant status Social [...] Description 11/16/2024 1:20 PM EDT Office Visit [facility] Nephrology, Bone & Mineral Metabolism [address] [facility], [address] [place] [address] 02/01/2025 2:15 PM EDT Office Visit [facility] [address] [place] [address] Munira Keen MD 110 [facility] [address] [place] [address] documented as of this encounter [...] MD LAB BLOOD ORDERABLES Final Res ult [facility] [address] [place] [address], documented in this encounter Visit Diagnoses Diagnosis Awaiting organ transplant status documented in this encounter Additional Health Concerns Assessment Noted Time A fall risk assessment has been complete d for the patient 10/15/2023 3:13 PM EDT A Body Mass Index follow-up plan has been documented for the patient 11/27/2023 10:13 AM EDT documented as of this encounter Care Teams Mutuel Teller Relationship Specialty Start Date End Date Dyllan Gil APRN [address] [place] [address] PCP - General 06/11/22 Lynda Spencer MD [address] [address] Referring Physician Nephrology 06/09/22 documented as of this encounter
--- OUTSIDE RECORDS SUMMARY | 2024-11-04 07:42 | XMS_ITS | Encounter Summary ---
Author Organization [facility] Address [address] [place] [address] Care Team Providers Care Mortar Mixer Operator Name Role Phone Lynda Spencer MD Unavailable [phone] Dyllan Gil APRN Primary Care Provider [phone] Reason for Visit * Reason Comments Med Refill Encounter Details Date Type Department Care Team (Late st Contact Info) Description 09/16/2022 Refill [facility] Endocrinology [address] [place] [address] Makayla Bahena APRN [address] [address] Social History Tobacco Use Types [...] 30 day supply with 0 refill(s) to [facility] pharmacy. documented in this encounter Plan of Treatment Upcoming Encounters Date Type Department Care Team (Late st Contact Info) Description 11/16/2024 1:20 PM EDT Office Visit [facility] Nephrology, Bone & Mineral Metabolism [address] [facility], [address] [place] [address] 02/01/2025 2:15 PM EDT Office Visit [facility] [address] [place] [address] Munira Keen MD 110 [facility] [address] [place] [address] documented as of this encounter Visit Diagnoses Not on filedocumented in this encounter Additional Health Concerns Assessment Noted Time A fall risk assessment has been complete d for the patient 06/26/2022 10:39 AM EST A Body Mass Index follow-up plan has been documented for the patient 08/28/2022 2:04 PM EDT documented as of this encounter Care Teams Mortar Mixer Operator Relationship Specialty Start Date End Date Dyllan Gil APRN [address] [place] [address] PCP - General 06/11/22 Lynda Spencer MD [address] [address] Referring Physician Nephrology 06/09/22 documented as of this encounter
--- OUTSIDE RECORDS SUMMARY | 2024-11-04 07:42 | XMS_ITS | Encounter Summary ---
Author Organization Healthcare Address [address] [place] [address] Care Team Providers Care Project Structural Engineer Name Role Phone Lynda Spencer MD Unavailable Dyllan Gil APRN Primary Care Provider [phone] Encounter Details Date Type Department Care Team (Late st Contact Info) Description 04/06/2024 Lab Requisition [facility] [address] [place] [address] Stacey Escamilla MD [address] [place] [address] Awaiting organ transplant status Social [...] Description 11/16/2024 1:20 PM EDT Office Visit [facility] Nephrology, Bone & Mineral Metabolism [address] [facility], [address] [place] [address] 02/01/2025 2:15 PM EDT Office Visit [facility] [address] [place] [address] Munira Keen MD 110 [facility] [address] [place] [address] documented as of this encounter [...] MD LAB BLOOD ORDERABLES Final Resul t [facility] [address] [place] [address], documented in this encounter Visit Diagnoses Diagnosis Awaiting organ transplant status documented in this encounter Additional Health Concerns Assessment Noted Time A fall risk assessment has been complete d for the patient 03/03/2024 3:00 PM EST A Body Mass Index follow-up plan has been documented for the patient 03/03/2024 4:28 PM EST documented as of this encounter Care Teams Project Structural Engineer Relationship Specialty Start Date End Date Dyllan Gil APRN [address] [place] [address] PCP - General 06/11/22 Lynda Spencer MD [address] [address] Referring Physician Nephrology 06/09/22 documented as of this encounter
--- OUTSIDE RECORDS SUMMARY | 2024-11-04 07:42 | XMS_ITS | Clinical Summary ---
Author Organization [facility] Address [address] [place] [address] Care Team Providers Care Closing Machine Operator Name Role Phone Lynda Spencer MD Unavailable [phone] Dyllan Gil APRN Primary Care Provider [phone] Allergies Active Allergy Reactions Criticality Noted Date [...] mouth every night. 2 Active Lancets Thin miscIndications: Type 2 diabetes mellitus with diabetic nephropathy, with long-term current use of insulin (CMS/HCC) Use to check BG 2 times a day 60 each 3 Active glucose blood (OneTouch Verio) test stripIndications :Type 2 diabetes mellitus with diabetic nephropathy, with long-term current use of insulin (CMS/HCC) TEST BLOOD SUGAR 4 TIMES A DAY DIRECTED 120 strip 5 3 Active glucose blood test strip Please provide strips compatible with patient's meter and insurance 100 each 11 4 Active famotidine (Pepcid) 20 MG tablet 4 Active Blood Glucose Monitoring Suppl ([employer] Verio Flex System) w/Device kitIndications:T ype 2 diabetes mellitus with hyperglycemia, unspecified whether mcc insulin use ([facility]) Use to test blood glucose daily DX [...] tablet (25 mg) by mouth daily. Active traZODone (Desyrel) 50 MG tablet Take 1-2 tablets by mouth at night as needed for sleep. 5 Active albuterol 108 (90 Base) MCG/ACT inhaler INHALE 1 PUFF BY MOUTH EVERY 4 HOURS NEEDED FOR SHORTNESS OF BREATH OR WHEEZING Active losartan (Cozaar) 25 MG tabletIndication s:Essential hypertension Take 1 tablet by mouth daily. 90 tablet 3 5 08/18/19 26 Active cholecalciferol (Vitamin D-3) 25 MCG (1000 UT) tabletIndication s:CKD (chronic kidney disease) stage 4, GFR 15-29 ml/min ([facility]) Take 1 tablet by mouth daily. 90 tablet 3 5 08/18/19 26 Active atorvastatin (Lipitor) 20 MG tablet TAKE ONE TABLET BY MOUTH ONCE A DAY 90 tablet 5 Active polyethylene glycol (Miralax) 17 g packet Take 17 g by mouth daily. 30 packet 2 5 10/13/19 25 Active Problems Problem Noted Date Diagnosed Date Cigarette smoker 09/23/2024 Abnormal gait 07/20/2024 Seasonal allergic rhinitis 07/20/2024 UTI (urinary tract infection), uncomplicated Vertigo 07/20/2024 Hypertensive heart and chron ic kidney disease with heart failure and stage 1 through stage 4 chronic kidney disease, or unspecified chronic kidney disease 07/18/2024 Abnormal electrocardiogram (ECG) (EKG) Visual discomfort, unspecified 04/25/2024 Presence of intraocular lens 04/04/2024 Heartburn 03/10/2024 Combined forms of age-related cataract, [...] Encounters Date Type Department Care Team Description 10/26/2024 9:45 AM EDT Office Visit [facility] [address] [place] [address] Munira Keen MD 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 type 2 diabetes mellitus (Primary Dx); Vitreous hemorrhage of left eye (CMS/HCC) 10/26/2024 2:00 AM EDT Ancillary Procedure [facility] [address] [place] [address] 10/26/2024 Travel 10/24/2024 Telephone [facility] [address] [place] [address] Derick Horta S 10/11/2024 Telephone [facility] [address] [place] [address] Derick Horta 10/10/2024 Telephone [facility] [address] [place] [address] Derick Horta 10/07/2024 Telephone [facility] [address] [place] [address] Derick Horta S 08/29/2024 [facility] Nephrology, Bone & Mineral Metabolism [address] [facility], [address] [place] [address] Lynda Spencer MD 08/24/2024 1:40 PM EDT Ancillary Procedure [facility] [address] [place] [address] 08/24/2024 1:15 PM EDT Office Visit [facility] [address] [place] [address] Carolee Quiles MD 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 type 2 diabetes mellitus (Primary Dx); Diabetic cataract; Pseudophakia of right eye; Right posterior capsular opacification 08/24/2024 Travel 08/17/2024 4:00 PM EDT Office Visit [facility] [place] Nephrology, Bone & Mineral Metabolism [address] [facility], [address] [place] [address] Lynda Spencer MD CKD (chronic kidney disease) stage 4, GFR 15-29 ml/min (CMS/HCC) (Primary Dx); Essential hypertension 08/17/2024 Travel 08/17/2024 Telephone [facility] [address] [place] [address] Nikki Ross RN 08/11/2024 Telephone [facility] [place] Nephrology, Bone & Mineral Metabolism [address], [address] [place] [address] Ramon Quiroz from Last 3 Months Immunizations Immunization Administration [...] Description 11/16/2024 1:20 PM EDT Office Visit [facility] [place] Nephrology, Bone & Mineral Metabolism [address] [facility], [address] [place] [address] 02/01/2025 2:15 PM EDT Office Visit [facility] [address] [place] [address] Munira Keen MD [address] [place] [address] Health Maintenance Due Date Last Done Comments [...] 2019 FIT 2019 FOBT 2019 Sigmoidoscopy 2019 [id number] Vaccine (2 - season) 2023 07/31/2020 [facility]-Lung Cancer Screening 2024 [facility]-Zoster Vaccines (1 of 2) 2024 [facility]-Breast Cancer Screening 07/21/2024 07/21/2022 [facility]-Diabetes: Hemoglobin A1C 10/10/2024, 11/15/2023, 06/24/2023, Additional history exists [facility]-Influenza Vaccine (#1) 12/26/202402/22, 03/05/2023, 03/05/2023, Additional history exists [facility]-Depression Screening 07/11/2025 07/11/2024 Colonoscopy 05/03/2031 05/03/2021 [facility]-Colorectal Cancer Screening 05/03/2031 [facility]-HIV Screening Completed 07/11/2024, , 07/13/2023, Additional history exists [facility]-Hepatitis C Screening Completed 2024, 10/21/2023, 07/13/2023, Additional history exists [facility]-Obesity Intervention Completed 025, 10/19/2024, 10/19/2024, Additional history exists HPV Vaccines Aged Out [...] diabetes mellitus Vitreous hemorrhage of left eye (CMS/HCC) OCT, [...] edema associated with type 2 diabetes mellitus HEPATITIS C ANTIBODY W/REFLEX TO HCV QUANT PCR Routine 07/11/2024 12:43 PM EDT End stage renal disease (CMS/HCC) HIV 1/2 ANTIBODY/ANTIGEN SCREEN WITH REFLEX TO HIV I/II DIFFERENTIATION Routine 07/11/2024 12:43 PM EDT End stage renal disease (CMS/HCC) HEMOGLOBIN A1C Routine 07/11/2024 12:43 PM EDT End stage renal disease (CMS/HCC) MAMMOGRAPHY BREAST DIAGNOSTIC TOMOSYNTHESIS BILATERAL Routine 07/21/2022 CYTO DATA CONVERSION Routine 03/01/2001 12:00 AM EST from Last 3 Months or Most Recently Relevant to Health Maintenance Results * Intravitreal Injection, Pharmacologic Agent - [...] 1.25 MG/0.05ML Route: Intravitreal, Site: Left Eye ND: 00519-570-91, Lot: [id number], Expiration date: 11/19/2024 Post-op Post injection exam [...] Keen MD OPHTH TOMOGRAPHY Final Result * Intravitreal Drug Injection - OS - [...] 2 MG/0.08ML Route: Intravitreal, Site: Left Eye NDC: 15597-494-66, Lot: [id number], Expiration date: 11/19/2024 Post-op Post injection exam found visual acuity of at least counting fingers. The patient tolerated the procedure well. There were no complications. The patient received written and verbal post procedure care education. Post injection medications were not given. Result Fransico Quiles MD OPHTH CLINIC PROCEDURES Fi nal [...] dme, improved left eye (OS): trace DME Result Fransico Quiles MD OPHTH TOMOGRAPHY Final Res ult * HIV 1 & 2 Antibody/Antigen Screen (07/11/2024 12:43 PM EDT) Pathologist [facility] HIV 1 & 2 Antibody/Antigen Screen Non [...] Resul t [facility] [address] [place] [address] * Hepatitis C Antibody (07/11/2024 12:43 PM EDT) Hepatitis C Antibody Negative Negative 07/11/2024 2:[address] [facility] Blood Venous blood specimen / Unknown Venipuncture / Unknown 07/11/2024 12:43 PM EDT 07/11/2024 1:29 PM EDT Result Fransico Escamilla MD LAB BLOOD ORDERABLES Final Resul t Performing Organization Address [facility] Co de Phone Number [facility] [address] [place] [address] * (ABNORMAL) Hemoglobin A1c (07/11/2024 12:43 PM [...] Adults <6.0% Children and Adolescents <7.5% Source: [place] [employer]. Standards of medical care in diabetes,2017. Diabetes Care.2017:40 (suppl 1):S1-S135. HbA1c assay performed by an ion-exchange chromatography method that is certified traceable to the DCCT. Stacey Escamilla MD LAB BLOOD ORDERABLES Final Resul t Performing Organization Address [facility] Co de Phone Number [facility] [address] [place] [address] * Mammography Breast Diagnostic Tomosynthesis Bilateral (07/21/2022) Anatomical Region Laterality Modality Breast Bilateral Mammography us Historical Provider IMG BI PROCEDURES Final R esult * Cytology (03/01/2001 12:00 AM EST) 03/01/2001 03/02/2001 12: 20 PM EST Narrative [facility] - 03/09/2001 11:24 AM EST [facility] MR #: [id number] [facility] K[address] [place], [place] [address] 1975 (Age: 25) FW Collect Date: 03/01/2001 00:00 Receipt Date: 03/02/2001 12:20 Page 1 DEPARTMENT OF PATHOLOGY AND LABORATORY MEDICINE CYTOPATHOLOGY REPORT Email: [email or web address] [phone] ATTENDING MD/Practitioner: Ricky Cardoso MD Service: [facility] Location: [facility] OTHER MD(S): Chace Muhammad MD Reported: [...] results is suggested (please call Microbiology at [phone] for results). CLINICAL INFORMATION: Menstrual History: Date of Last Menstrual Period: {Not Provided} SPECIMEN DESCRIPTION: A: THIN PREP (CERVICAL/VAGINAL) THIN PREP PROCESS CELLULAR ENHANCEMENT ICD: V76.2 CERVIX, SPECIAL SCREENING FOR MALIGNANT NEOPLASM F: A; THIN SCRN [id number] SNOMED CODES: A; [id number] In cases where a pathologist has signed out the report, the service has been rendered in part by a resident. The signing pathologist has performed and is responsible for the reported pathologic evaluation. us Historical Provider LAB PATHOLOGY ORDERABLES Final Result [employer] from Last 3 Months or Most Recently Relevant to Health Maintenance Insurance [employer] Care Teams Closing Machine Operator Relationship Specialty Start Date End Date Dyllan Gil APRN [address] [place] [address] PCP - General 06/11/22 Lynda Spencer MD [address] [place] [address] Referring Physician Nephrology 06/09/22
--- OUTSIDE RECORDS SUMMARY | 2024-11-04 07:42 | XMS_ITS | Encounter Summary ---
Author Organization Healthcare Address [address] [place] [address] Care Team Providers Care Filling Hauler Name Role Phone Lynda Spencer MD Unavailable [phone] Dyllan Gil APRN Primary Care Provider [phone] Encounter Details Date Type Department Care Team (Late st Contact Info) Description 10/11/[address] [facility] [address] [place] [address] Derick Horta Social History Tobacco Use [...] Metabolism [address], [address] [place] [address] 02/01/2025 2:15 PM EDT Office Visit [facility] [address] [place] [address] Munira Keen MD 110 [facility] [address] [place] [address] documented as of this encounter Visit Diagnoses Not on filedocumented in this encounter Additional Health Concerns Assessment Noted Time A fall risk assessment has been complete d for the patient 08/24/2024 1:00 PM EDT A Body Mass Index follow-up plan has been documented for the patient 08/24/2024 2:24 PM EDT documented as of this encounter Care Teams Filling Hauler Relationship Specialty Start Date End Date Dyllan Gil APRN [address] [place] [address] PCP - General 06/11/22 Lynda Spencer MD [address] [place] [address] Referring Physician Nephrology 06/09/22 documented as of this encounter
--- OUTSIDE RECORDS SUMMARY | 2024-11-04 07:42 | XMS_ITS | Encounter Summary ---
Author Organization Healthcare Address [address] [place] [address] Care Team Providers Care Sales Associate Key Holder Name Role Phone Lynda Spencer MD Unavailable [phone] Dyllan Gil APRN Primary Care Provider [phone] Encounter Details Date Type Department Care Team (Late st Contact Info) Description 02/05/2024 Lab Requisition [facility] [address] [place] [address] Stacey Escamilla MD [address] [place] [address] Awaiting organ transplant status Social [...] 11/16/2024 1:20 PM EDT Office Visit [facility] Nephrology, Bone & Mineral Metabolism [address] [facility], [address] [place] [address] 02/01/2025 2:15 PM EDT Office Visit [facility] [address] [place] [address] Munira Keen MD 110 [facility] [address] [place] [address] documented as of this encounter Procedures Procedure Name Priority Date/Time Associated Diagnosis Comments HLA ANTIBODY TESTING (LSA) Routine 02/02/2024 2:37 PM EDT Awaiting organ transplant status documented in this encounter Results * HLA Antibody Testing (LSA) (02/02/2024 2:37 PM EDT) Blood Venous blood specimen / Unknown 02/02/2024 2:37 PM EDT 02/05/2024 10:10 AM EDT us Staecy Escamilla MD LAB BLOOD ORDERABLES Final Resul t [facility] [address] [place] [address], documented in this encounter Visit Diagnoses Diagnosis Awaiting organ transplant status documented in this encounter Additional Health Concerns Assessment Noted Time A fall risk assessment has been complete d for the patient 10/15/2023 3:13 PM EDT A Body Mass Index follow-up plan has been documented for the patient 12/23/2023 2:37 PM EDT documented as of this encounter Care Teams Sales Associate Key Holder Relationship Specialty Start Date End Date Dyllan Gil APRN [address] [place] [address] PCP - General 06/11/22 Lynda Spencer MD [address] [address] Referring Physician Nephrology 06/09/22 documented as of this encounter
--- OUTSIDE RECORDS SUMMARY | 2024-11-04 07:42 | XMS_ITS ---
Author Organization [facility] Address [address] [place] [address] Care Team Providers Care Missile Pad Mechanic Name Role Phone Lynda Spencer MD Unavailable [phone] Dyllan Gil APRN Primary Care Provider [phone] Transplant Episode Kidney Candidate [facility] ([place], [place]) - [facility] Center waitlisted on 12/24/2022 Marked as Inactive on 03/31/2024 Reason: Temporarily too Sick Kidney CoordinatorNikki Ross RN Fax: N/A Email: N/A Scores Score Value Updated Exceptions/Reas ons CPRA 29 02/02/2024 EPTS (Calc) 32 11/04/2024 [facility] Diagnosis Organ Primary Contributory Kidney Diabetes Mellitus - Type II Hype rtensive Nephrosclerosis Care Team Name Role Phone Fax Email Nikki Ross RN Kidney Coordinator [phone] N/A N/A Dyllan Gil APRN Primary Care Provider [phone] N/A Christine Rosado Mold Yard Supervisor [phone] N/A N/A Lynda Spencer MD Referring Physician [phone] N/A Events Pre-Transplant Referred: 06/09/2022 Evaluation began: 07/04/2022 Committee: 07/02/2022 Center waitlisted: 12/24/2022
[2024-11-04 07:46] LABS: Microscopic, Urine URINE MICROSCOPIC (MICROSCOPIC)
[2024-11-04 08:09] LABS: Hematocrit 38.6 % (37.0-47.0); Hemoglobin 12.6 g/dL (12.2-16.2); Mean Corpuscular HGB Conc 32.6 g/dL (31.8-35.4); Mean Corpuscular Hemoglobin 30.0 pg (27.0-31.2); Mean Corpuscular Volume 91.9 fl (81-99); Nucleated Red Blood Cells % 0 %; Platelet Count 174 K/mm3 (142-424); Red Blood Count 4.20 M/mm3 (4.20-5.40); Red Cell Distribution Width-SD 50.8 fL; White Blood Count 8.0 K/mm3 (4.8-10.8)
[2024-11-04 08:15] LABS: Bilirubin,Urine Negative (Negative); Color,Urine YELLOW (Yellow); Glucose,Urine (UA) 1+ (Negative); Ketones,Urine Negative (Negative); Leukocyte Esterase,Urine Negative (Negative); PH,Urine 6.0 (5.0-8.5); Protein,Urine 2+ (Negative); Specific Gravity, Urine 1.020 (1.005-1.030); Urobilinogen,Urine 0.2 EU/dl (0.2)
[2024-11-04 08:41] LABS: Bacteria,Urine Trace /lpf; Squamous Epithelial Cell,Urine Occasional #/hpf (0-5)
[2024-11-04 08:45] LABS: Albumin Level 4.0 g/dl (3.5-5.0); Anion Gap 13.3 mEq/L (5-15); Blood Urea Nitrogen 34 mg/dl (7-17); Calcium 9.2 mg/dl (8.4-10.2); Carbon Dioxide 29 mmol/L (22.0-30.0); Chloride 103 mmol/L (98-107); Creatinine,Serum 1.90 mg/dl (0.52-1.04); Estimated Glomerular Filt Rate 28 ml/min (>60); GFR (African American) 34 ML/MIN (>60); Glucose 141 mg/dl (74-100); Phosphorous 4.6 mg/dl (2.5-4.5); Potassium 4.3 mmoL/L (3.5-5.1); Sodium 141 mmol/L (136-145)
== END 2024-11-04 23:59 | disposition home or self-care (01) ==
LOC: LAB 07:40
PROVIDERS: PCP Family Medicine; Visit Provider Internal Medicine Nephrology
DX: N18.4 Chronic kidney disease, stage 4 (severe) (principal)
CPT/HCPCS: 36415; 80069; 81001; 82570; 84156; 85027

== ENCOUNTER 2024-12-01 11:00 | Outpatient (CLI) | payer MEDICAID, SELFPAY ==
--- OUTSIDE RECORDS SUMMARY | 2024-10-26 02:00 | XMS_ITS | Encounter Summary ---
Author Organization [facility] Address [address] [place] [address] Care Team Providers Care Ux Ui Designer Name Role Phone Lynda Spencer MD Unavailable [phone] Dyllan Gil APRN Primary Care Provider [phone] Encounter Details Date Type Department Care Team (Late st Contact Info) Description 10/26/2024 2:00 AM EDT Ancillary Procedure [facility] [address] [place] [address] Social History Tobacco Use Types [...] Care Team (Late st Contact Info) Description 02/01/2025 2:15 PM EDT Office Visit [facility] [address] [place] [address] Munira Keen MD [address] [place] [address] 02/22/2025 1:00 PM EDT Office Visit [facility] Nephrology, Bone & Mineral Metabolism [address], [address] [place] [address] Lynda Spencer MD [address] [place] [address] 03/07/2025 1:40 PM EST Office Visit [facility] Endocrinology [address] [place] [phone] Makayla Bahena, LUBE WORKER [address] [place] [address] documented as of this encounter Procedures Procedure Name Priority Date/Time Associated Diagnosis Comments OCT, RETINA - OU - BOTH EYES Routine 10/26/2024 10:22 AM EDT 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 type 2 diabetes mellitus documented in this encounter Results * OCT, Retina - OU - Both Eyes (10/26/2024 10:22 AM EDT) Anatomical Region Laterality Modality Head Optical Coherenc e Tomography Narrative 10/26/2024 10:22 AM EDT Right Eye Quality was good. Scan locations included subfoveal. Progression has been stable. Left Eye Quality was poor. Scan locations included subfoveal. Progression has no prior data. Notes right eye (OD): stable non ci dme left eye (OS): trace noncsDME us Munira Keen MD OPHTH TOMOGRAPHY Final Result documented in this encounter Visit Diagnoses Not on filedocumented in this encounter Additional Health Concerns Assessment Noted Time A fall risk assessment has been complete d for the patient 10/26/2024 10:01 AM EDT A Body Mass Index follow-up plan has been documented for the patient 10/26/2024 10:22 AM EDT documented as of this encounter Care Teams Ux Ui Designer Relationship Specialty Start Date End Date Dyllan Gil APRN [address] [place] [address] PCP - General 06/11/22 Lynda Spencer MD [address] [place] [phone] Referring Physician Nephrology 06/09/22 documented as of this encounter
--- OUTSIDE RECORDS SUMMARY | 2024-10-26 09:45 | XMS_ITS | Encounter Summary ---
Author Organization [facility] Address [address] [place] [address] Care Team Providers Care Support Assistant Name Role Phone Lynda Spencer MD Unavailable [phone] Dyllan Gil APRN Primary Care Provider [phone] Reason for Referral * Clinic-Administered Medication (Routine) - Authorized Specialty Diagnoses / Procedures Referred By Contlilian t Referred To Contact Diagnoses 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 type 2 diabetes mellitus Vitreous hemorrhage of left eye ([facility]/HCC) Procedures [place] BEVACIZUMAB INJECTION Munira Keen MD [address] [employer] [address] [place] [address] Phone: tel: fax: Referral ID Status Reason Start Date Expiration Date V isits Requested Visits Authorized [id number] Authorized 10/26/2024 04/27/2026 1 14 Reason for Visit * Reason Comments Retinal Injection Encounter Details Date Type Department Care Team (Late st Contact Info) Description 10/26/2024 9:45 AM EDT Office Visit [facility] [address] [place] [address] Munira Keen MD [address] [place] [address] 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 Most patients [...] reach the clinic on the phone. Call [phone] and ask for the software licensing executive it application administrator if it is after hours or a weekend or holiday. * Addendum Note - Gavin Chang MBBS - 10/26/2024 9:45 AM EDTAddended by: GAVIN CHANG on: 10/26/2024 10:57 AM Modules accepted: Orders * Progress Notes - Munira Keen MD - 10/26/2024 9:45 AM EDT Retina Clinic Note CHIEF COMPLAINT Patient presents for PDR HISTORY OF PRESENT ILLNESS: Melanie Healy is a 49 y.o. female who presents to the clinic today for: REVIEW OF SYSTEMS: ROS Positive for: Eyes Negative for: Constitutional, Gastrointestinal, Neurological, Skin, Genitourinary, Musculoskeletal,HENT, Endocrine, Cardiovascular, Respiratory, Psychiatric, Allergic/Imm, Heme/Lymph Last edited by Zee Zhang on 10/26/2024 9:59 AM. Negative except for ROS Positive for: Eyes Negative for: Constitutional, Gastrointestinal, Neurological, Skin, Genitourinary, Musculoskeletal,HENT, Endocrine, Cardiovascular, Respiratory, Psychiatric, Allergic/Imm, Heme/Lymph Last edited by Zee Zhang on 10/26/2024 9:59 AM. Referring physician: No referring provider defined for [...] OR WHEEZING atorvastatin (Lipitor) 20 MG tablet TAKE ONE TABLET BY MOUTH ONCE A DAY Blood Glucose Monitoring Suppl (Blood Glucose Monitor [...] by mouth 1 (one) time each day. QUEtiapine (SEROquel) 200 MG tablet Take 1 [...] Diagnosis Date Ankle fracture Bipolar affective disorder ([facility]) Cataract [id number] Chronic kidney disease Diabetic retinopathy ([facility]) HLD (hyperlipidemia) Hypertension Hypertensive retinopathy Hypoglycemia Lymphedema, [...] Decompression Median Nerve At Carpal Tunnel from Touchworks CATARACT EXTRACTION W/ INTRAOCULAR LENS IMPLANT Right 03/08/2024 [facility] SECTION, LOW TRANSVERSE N/A 1994, 2000 ESOPHAGOGASTRODUODENOSCOPY 06/27/2022 GASTRIC BYPASS OTHER SURGICAL HISTORY r/t hidradenitis suppurativa multiple 1992,1993,1996,2001, 2002, PANRETINAL PHOTOCOAGULATION Bilateral PILONIDAL CYST DRAINAGE N/A Pilonidal Cyst Resection from Touchworks RETINAL LASER PROCEDURE ROOT CANAL VITRECTOMY Right Vitrectomy from Touchworks WISDOM TOOTH EXTRACTION FAMILY HISTORY Family History Problem Relation Name Age of Onset Diabetes Mother Jes Hypertension Mother Jes Obesity Mother Jes Diabetes Father Phani Hypertension Father hPani Other cancer Father Phani Obesity Father Phani [...] date: 06/12/1992 Quit date: 06/12/2022 Years since quittin.3 Passive exposure: Past Smokeless tobacco: Never Tobacco comments: None smoker 30days Vaping Use Vaping status: Never Used Substance Use Topics Alcohol use: No Drug use: Never Comment: Drug use: No drug use GENERAL EXAM: General Exam: Neuro: Alert and Oriented x 3, normal mood and affect OPHTHALMIC EXAM: Base Eye Exam Visual Acuity (Snellen - Linear) Right Left Dist sc 20/40-1 20/30-2 Dist ph sc 20/30-2 Tonometry (Tonopen, 10:09 AM) Right Left Pressure 20 21 Pupils Pupils Shape React APD Right PERRL Round Brisk None Left PERRL Round Brisk None Neuro/Psych Oriented x3: Yes Mood/Affect: Normal Dilation Both eyes: 1% Tropicamide, 2.5% Phenylephrine @ 10:09 AM Slit Lamp and Fundus Exam External Exam Right Left External Normal Normal Slit Lamp Exam Right Left Lids/Lashes Normal for Age Normal for Age Conjunctiva/Sclera normal normal Cornea clear clear Anterior Chamber deep and quiet deep and quiet Iris No NV trace NVI Lens PCIOL, 2+ PCO 1+ NS with 2+ CS Fundus Exam Right Left Posterior Vitreous clear VH cleared Disc no edema, no vascularization, pallor (Volodymyr [...] ci dme left eye (OS): trace noncsDME VISIT DIAGNOSES 1. 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 Repeat ELICIA and recheck 12 weeks Cataract, diabetic, left eye - had surgery in [place] on OD recently with pre-op ELICIA - VA improved and pt happy Pseudophakia, right eye Posterior capsular opacification, right eye - YAG eval right eye Explained the diagnoses, plan, and follow up with the patient and they expressed understanding. Patient expressed understanding of the importance of proper follow up care. Follow up in about 3 months (around 01/26/2025) for Dilated Exam, OCT. Patient Instructions AFTER INJECTION CARE 1. Most patients experience [...] reach the clinic on the phone. Call [phone] and ask for the software licensing executive it application administrator if it is after hours or a weekend or holiday. Electronically signed by: Munira Keen MD Tobacco Use: Medium Risk (10/26/2024) Patient History Smoking Tobacco Use: Former Smokeless Tobacco Use: Never Passive Exposure: Past The patient has been counseled on tobacco cessation: Not Applicable documented in this encounter Plan of Treatment Upcoming Encounters Date Type Department Care Team (Late st Contact Info) Description 02/01/2025 2:15 PM EDT Office Visit [facility] [address] [place] [address] Munira Keen MD [address] [place] [address] 02/22/2025 1:00 PM EDT Office Visit [facility] Nephrology, Bone & Mineral Metabolism [address] [facility], [address] [place] [address] Lynda Spencer MD [address] [place] [address] 03/07/2025 1:40 PM EST Office Visit [facility] Endocrinology [address] [place] [address] Makayla Bahena, CARE ADVOCATE [address] [place] [address] documented as of this encounter Procedures Procedure Name Priority Date/Time Associated Diagnosis Comments INTRAVITREAL INJECTION, PHARMACOLOGIC AGENT - OS - LEFT EYE Routine 10/26/2024 11:13 AM EDT 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 10:55 AM. Confirmed correct patient, procedure, site, and patient consented. Anesthesia Topical anesthesia was used. Procedure Preparation included 5% betadine to ocular surface. A 30 gauge needle was used. Injection: 0.05 mL Bevacizumab 1.25 MG/0.05ML Route: Intravitreal, Site: Left Eye 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 type 2 diabetes mellitus- Primary Vitreous hemorrhage of left eye (CMS/HCC) Vitreous hemorrhage documented in this encounter Administered Medications Inactive Administered Medications - up to 3 most recent administrations Medication Order MAR Action Action Date Dose Rate Site Bevacizumab (Avastin) ophthalmic injection 0.05 mL 0.05 mL, Intravitreal, Once PRN Procedure, 1 dose, Starting on Thu10/26/24 at 1113, Until Thu10/26/24 at 1113, RoutineIndications:Proliferati ve diabetic retinopathy of both eyes with macular edema associated with type 2 diabetes mellitus,Vitreous hemorrhage of left eye (CMS/HCC) Given 10/26/2024 11:13 AM EDT 0.05 mL Left Eye documented in this encounter Additional Health Concerns Assessment Noted Time A fall risk assessment has been complete d for the patient 10/26/2024 10:01 AM EDT A Body Mass Index follow-up plan has been documented for the patient 10/26/2024 10:22 AM EDT documented as of this encounter Care Teams Support Assistant Relationship Specialty Start Date End Date Dyllan Gil APRN [address] [place] [address] PCP - General 06/11/22 Lynda Spencer MD [facility] [address] [phone] Referring Physician Nephrology 06/09/22 documented as of this encounter
--- OUTSIDE RECORDS SUMMARY | 2024-11-08 12:20 | XMS_ITS | Encounter Summary ---
Author Organization [facility] Address [address] [place] [address] Care Team Providers Care Network Control Supervisor Name Role Phone Lynda Spencer MD Unavailable [phone] Dyllan Gil APRN Primary Care Provider [phone] Reason for Referral * Consultation (Routine) - Authorized Specialty Diagnoses / Procedures Referred By Bobo t Referred To Contact Diagnoses Type 2 diabetes mellitus with diabetic nephropathy, with long-term current use of insulin (CMS/HCC) Makayla Bahena APRN [address] [address] Phone: tel: fax: Referral ID Status Reason Start Date Expiration Date V isits Requested Visits Authorized [id number] Authorized 11/08/2024 05/10/2026 1 1 Reason for Visit * Reason Comments Diabetes Encounter Details Date Type Department Care Team (Late st Contact Info) Description 11/08/2024 12:20 PM EDT Office Visit [facility] Endocrinology [address] [place] [address] Makayla Bahena APRN [address] [place] [address] Type 2 diabetes mellitus with hyperglycemia, unspecified whether long-term insulin use (CMS/HCC) (Primary Dx); Retinopathy; Neuropathy; Essential hypertension; Hyperlipidemia, unspecified hyperlipidemia type; CKD (chronic kidney disease) stage 4, GFR 15-29 ml/min ([facility]); Overweight; Medication refill Social History Tobacco Use [...] - 11/08/2024 12:20 PM EDT Melanie Healy [id number] 11/08/24 Insulin Correction Scale 1:50 One unit [...] 250, please contact the Diabetes Team at [phone]. * Progress Notes - Makayla Bahena APRN [...] 3 months -Labs: June 2024 -followed by acute care nursing assistant -reports still trying to stop smoking -denies [...] care. Electronically signed by: Makayla Bahena APRN [facility] ENDOCRINOLOGY [address] [place] [address]. [address] [place]. [address] PHONE [phone] FAX: [phone] documented in this encounter Plan of Treatment Upcoming Encounters Date Type Department Care Team (Late st Contact Info) Description 02/01/2025 2:15 PM EDT Office Visit [facility] [address] [place] [address] Munira Keen MD [address] [place] [address] 02/22/2025 1:00 PM EDT Office Visit [facility] Nephrology, Bone & Mineral Metabolism [address] [facility], [address] [place] [address] Lynda Spencer MD [address] [place] [address] 03/07/2025 1:40 PM EST Office Visit [facility] Endocrinology [address] [place] [address] Makayla Bahena APRN [address] [place] [address] Scheduled Referrals Name Type Priority Associated Diagnoses Orde r Schedule Follow Up [facility] Outpatient Referral Routine Type 2 diabetes mellitus with hyperglycemia, unspecified whether long-term insulin use ([facility]) Expected: 02/08/2025, Expires: 05/12/2026 documented as of this encounter Visit Diagnoses Diagnosis Type 2 diabetes mellitus with hyperglycemia, unspecified whether salvage determiner insulin use (CMS/HCC)- Primary Retinopathy Unspecified background [...] documented as of this encounter Care Teams Network Control Supervisor Relationship Specialty Start Date End Date Dyllan Gil APRN [address] [place] [address] PCP - General 06/11/22 Lynda Spencer MD [address] [place] [address] [phone] (work) Referring Physician Nephrology 06/09/22 documented as of this encounter
--- OUTSIDE RECORDS SUMMARY | 2024-11-16 13:20 | XMS_ITS | Encounter Summary ---
Author Organization [facility] Address [address] [place] [address] Care Team Providers Care Permaculture Contractor Name Role Phone Lynda Spencer MD Unavailable [phone] Dyllan Gil APRN Primary Care Provider [phone] Reason for Referral * Consultation (Routine) - Authorized Specialty Diagnoses / Procedures Referred By Contac t Referred To Contact Diagnoses CKD (chronic kidney disease) stage 4, GFR 15-29 ml/min ([facility]) Lynda Spencer MD [address] [place] [address] Phone: tel: fax: Referral ID Status Reason Start Date Expiration Date V isits Requested Visits Authorized [id number] Authorized 11/16/2024 05/18/2026 1 1 Reason for Visit * Reason Comments Follow-up Encounter Details Date Type Department Care Team ([facility] st Contact Info) Description 11/16/2024 1:20 PM EDT Office Visit [facility] Nephrology, Bone & Mineral Metabolism [address] [place] [address] Lynda Spencer MD [address] [place] [address] CKD (chronic kidney disease) stage 4, GFR 15-29 ml/min (CMS/HCC) (Primary Dx) Social History Tobacco Use Types Packs/Day Years [...] Sign Reading Time Taken Comments Blood Pressure 160/84 11/16/2024 1:30 PM EDT RN verified w/manual, resident present in room Pulse 80 11/16/2024 1:09 PM EDT Temperature 36.7 C (98.1 F) 11/16/2024 1:09 PM EDT Respiratory Rate - - Oxygen Saturation 96% 11/16/2024 1:0 9 PM EDT Inhaled Oxygen Concentration - - Weight 76.8 kg (169 lb 5 oz) 11/16/2024 1:09 PM EDT Height 167.6 cm (5' 6 ) 11/16/2024 1:09 PM EDT Body Mass Index 27.33 11/16/2024 1:09 PM EDT documented in this encounter Functional [...] encounter Miscellaneous Notes * Progress Notes - Jose Manuel Ca, - 11/16/2024 1:20 PM EDT SUBJECTIVE Melanie Healy is a 49 y.o. female who presents for follow-up of CKD 4. Feeling well overall. Patient has had nightly cramping in both legs, including cramps that wake herup at night. She also reports that she has been misplacing items and forgetting little things in the short term, admits this could be due to disturbed sleep. Patient has also noticed increased lower extremity swelling. Patient is still walking multiple hours 3-4 days a week. Still smoking 1.5-2ppd but restarted chantix and is attempting to quit. Denies headaches, increased visual changes, weakness, numbness, hematuria, dysuria, abd pain, SOA, CP. OBJECTIVE Vitals: 11/16/24 1330 BP: (!) 160/84 Pulse: Temp: SpO2: PHYSICAL EXAMINATION Gen: NAD, well-developed HEENT: AT/NC, EOMI Neck: trachea midline, supple Skin: warm, dry CV: RRR, minimal lower extremity edema Pulm: no increased work of breathing, symmetric chest expansion, good inspiratory/expiratory effort GI: abd soft, ND Neuro: alert, interactive, cortical function grossly intact LAB RESULTS Outside labs reviewed Date of collection: Na 141 Hgb 12.6 K 4.3 Wbc 8.0 CL 103 CO2 29 Bun 34 Cr 1.9 EGFR 28 Glu 141 Phos 4.6 Alb 4.0 Ca 9.2 Ur Cr 66 Ur Tot Prot 258 ASSESSMENT/PLAN Assessment: - CKD 4/5: from long-standing DM2 since age 16 yo and nsaid use. Cr was holding 3.4-3.7, but improved to Cr 2.8-3.0 after sleeve gastrectomy. If renal function fails, then she would prefer home dialysis, PD, if needed. She has attended [facility]. Pt referred to [facility]. Current Cr 1.9, BUN34, with stable electrolytes, eGFR 28 ml/min. - Proteinuria: Proteinuria w/u without evidence of viral or autoimmune etiology. Suspect related todiabetic nephropathy or secondary FSGS from uncontrolled DM and obesity. At one time, UPC > 5 mg/mg. UPC recent range has been 1.1-1.4 mg/mg. Current UPC 3.9. - HTN: High in clinic today 155/84, per report was 125/85 at [facility] and is usually well controlled at home. No changes today but will continue to monitor. Patient has follow up with cardiology. - DM 2: Hb A1c 7.9%. No longer on insulin. - Hyperkalemia: K now within normal limit - Anemia in CKD: Hb 12.6 g/dL. Not on BOBBI. Has received IV iron in past. Not considered anemic if Hb remains at current level. - CKD-MBD/ Vitamin D Deficiency: vit D 54.6, Last PTH 79. Phos 4.6, Ca 9.2. On cholecalciferol. - Obesity: resolved with gradual weight loss with dietary changes. S/p robotic sleeve gastrectomy 02/2023. Ozempic completed. Plan/ Recs: - continue losartan 25 mg daily and metoprolol XL 25 mg daily. - plan for PD if/when pt needs to be initiated. Will monitor renal function closely - Continue cholecalciferol 25 mcg daily - still in connection with transplant. Encouraged to quit smoking. RTC in 3 months Cosigned by Lynda Spencer MD at 11/17/2024 2:02 PM EDT Associated attestation - Lynda Spencer MD - 11/17/2024 2:02 PM EDT I saw and evaluated the patient with the resident/fellow. I discussed the case with the resident/fellow and agree with the findings and plan as documented. documented in this encounter Plan of Treatment Upcoming Encounters Date Type Department Care Team (Late st Contact Info) Description 02/01/2025 2:15 PM EDT Office Visit [facility] [address] [place] [address] Munira Keen MD [address] [address] 02/22/2025 1:00 PM EDT Office Visit [facility] Nephrology, Bone & Mineral Metabolism [address] [facility], [address] [place] [address] Lynda Spencer MD [address] [place] [address] 03/07/2025 1:40 PM EST Office Visit [facility] Endocrinology [address] [place] [address] Makayla Bahena, MIXER CRANE OPERATOR [address] [address] [place] [address] Scheduled Orders Name Type Priority Associated Diagnoses Orde r Schedule Creatinine, Random, Urine Lab Routine CKD (chronic kidney disease) stage 4, GFR 15-29 ml/min (CMS/HCC) Expected: 11/16/2024 (Approximate), Expires: 05/19/2026 Protein, Random, Urine with Creatinine Lab Routine CKD (chronic kidney disease) stage 4, GFR 15-29 ml/min (CMS/HCC) Expected: 11/16/2024 (Approximate), Expires: 05/19/2026 Urinalysis with reflex microscopic (Culture NOT Included) Lab Routine CKD (chronic kidney disease) stage 4, GFR 15-29 ml/min (CMS/HCC) Expected: 11/16/2024 (Approximate), Expires: 05/19/2026 CBC W/O Differential Lab Routine CKD (chronic kidney disease) stage 4, GFR 15-29 ml/min (CMS/HCC) Expected: 11/16/2024 (Approximate), Expires: 05/19/2026 Renal Function Panel, Plasma Lab Routine CKD (chronic kidney disease) stage 4, GFR 15-29 ml/min (CMS/HCC) Expected: 11/16/2024 (Approximate), Expires: 05/19/2026 Scheduled Referrals Name Type Priority Associated Diagnoses Order Schedule Follow Up Nephrology Outpatient Referral Routine CKD (chronic kidney disease) stage 4, GFR 15-29 ml/min (CMS/HCC) Expected: 02/16/2025 (Approximate), Expires: 12/17/2025 documented as of this encounter Visit Diagnoses Diagnosis CKD (chronic kidney disease) stage 4, GFR 15-29 ml/min ([facility])- Primary Chronic kidney disease, Stage IV (severe) documented in this encounter Additional Health Concerns Assessment Noted Time A fall risk assessment has been complete d for the patient 11/16/2024 1:21 PM EDT A Body Mass Index follow-up plan has been documented for the patient 11/17/2024 2:03 PM EDT documented as of this encounter Care Teams Permaculture Contractor Relationship Specialty Start Date End Date Dyllan Gil APRN [address] [place] [address] PCP - General 06/11/22 Lynda Spencer MD [address] [id number] Referring Physician Nephrology 06/09/22 documented as of this encounter
--- OUTSIDE RECORDS SUMMARY | 2024-12-02 11:19 | XMS_ITS | Encounter Summary ---
Author Organization Healthcare Address [address] [place] [address] Care Team Providers Care Needle Straightener Name Role Phone Lynda Spencer MD Unavailable Dyllan Gil APRN Primary Care Provider [phone] Encounter Details Date Type Department Care Team (Late st Contact Info) Description 03/08/2024 Lab Requisition [facility] [address] [place] [address] Stacey Escamilla MD [address] [place] [address] Awaiting organ transplant status Social [...] Description 02/01/2025 2:15 PM EDT Office Visit [facility] [address] [place] [address] Munira Keen MD 110 [facility] 550 [place] [address] 02/22/2025 1:00 PM EDT Office Visit [facility] Nephrology, Bone & Mineral Metabolism [address], [address] [place] [address] Lynda Spencer MD [address] [place] [address] 03/07/2025 1:40 PM EST Office Visit [facility] Endocrinology [address] [place] [address] Makayla Bahena S, ARMATURE TESTER 2195 [facility] [address] [place] [address] documented as of this encounter [...] MD LAB BLOOD ORDERABLES Final Resul t [facility] [address] documented in this encounter Visit Diagnoses Diagnosis Awaiting organ transplant status documented in this encounter Additional Health Concerns Assessment Noted Time A fall risk assessment has been complete d for the patient 03/03/2024 3:00 PM EST A Body Mass Index follow-up plan has been documented for the patient 03/03/2024 4:28 PM EST documented as of this encounter Care Teams Needle Straightener Relationship Specialty Start Date End Date Dyllan Gil APRN [address] [place] [address] PCP - General 06/11/22 Lynda Spencer MD [address] [address] Referring Physician Nephrology 06/09/22 documented as of this encounter
--- OUTSIDE RECORDS SUMMARY | 2024-12-02 11:19 | XMS_ITS | Encounter Summary ---
Author Organization Healthcare Address [address] [place] [address] Care Team Providers Care Tavern Car Attendant Name Role Phone Lynda Spencer MD Unavailable [phone] Dyllan Gil APRN Primary Care Provider [phone] Encounter Details Date Type Department Care Team (Late st Contact Info) Description 04/06/2024 Lab Requisition [facility] [address] [place] [address] Stacey Escamilla MD [address] [place] [address] Awaiting organ transplant status Social [...] Description 02/01/2025 2:15 PM EDT Office Visit [facility] [address] [place] [address] Munira Keen MD 110 [facility] [address] [place] [address] 02/22/2025 1:00 PM EDT Office Visit [facility] Nephrology, Bone & Mineral Metabolism [address], [address] [place] [address] Lynda Spencer MD [address] [place] [address] 03/07/2025 1:40 PM EST Office Visit [facility] Endocrinology [address] [place] [address] Makayla Bahena S, NAME PLATE STAMPER 2[address] [facility] [address] [place] [address] documented as of this encounter [...] MD LAB BLOOD ORDERABLES Final Resul t [facility] [address] documented in this encounter Visit Diagnoses Diagnosis Awaiting organ transplant status documented in this encounter Additional Health Concerns Assessment Noted Time A fall risk assessment has been complete d for the patient 03/03/2024 3:00 PM EST A Body Mass Index follow-up plan has been documented for the patient 03/03/2024 4:28 PM EST documented as of this encounter Care Teams Tavern Car Attendant Relationship Specialty Start Date End Date Dyllan Gil APRN [address] [place] [address] PCP - General 06/11/22 Lynda Spencer MD [address] [address] Referring Physician Nephrology 06/09/22 documented as of this encounter
--- OUTSIDE RECORDS SUMMARY | 2024-12-02 11:19 | XMS_ITS | Encounter Summary ---
Author Organization [facility] Address [address] [place] [address] Care Team Providers Care Mat Making Machine Tender Name Role Phone Lynda Spencer MD Unavailable [phone] Dyllan Gil APRN Primary Care Provider [phone] Reason for Visit * Reason Comments Med Refill Encounter Details Date Type Department Care Team (Late st Contact Info) Description 09/16/2022 [facility] [address] [place] [address] Makayla Bahena APRN [address] [address] Social History Tobacco Use Types [...] 30 day supply with 0 refill(s) to [facility] pharmacy. documented in this encounter Plan of Treatment Upcoming Encounters Date Type Department Care Team (Late st Contact Info) Description 02/01/2025 2:15 PM EDT Office Visit [facility] [address] [place] [address] Munira Keen MD 110 [facility] 550 [place] [address] 02/22/2025 1:00 PM EDT Office Visit [facility] Nephrology, Bone & Mineral Metabolism 135 [address] [facility], [address] [place] [address] Lynda Spencer MD 135 [address] [facility] [address] [place] [address] 03/07/2025 1:40 PM EST Office Visit [facility] Endocrinology [address] [place] [address] Makayla Bahena APRN 2195 [facility] 125 [place] [address] documented as of this encounter Visit Diagnoses Not on filedocumented in this encounter Additional Health Concerns Assessment Noted Time A fall risk assessment has been complete d for the patient 06/26/2022 10:39 AM EST A Body Mass Index follow-up plan has been documented for the patient 08/28/2022 2:04 PM EDT documented as of this encounter Care Teams Mat Making Machine Tender Relationship Specialty Start Date End Date Dyllan Gil APRN [address] [place] [address] PCP - General 06/11/22 Lynda Spencer MD [address] [place] [address] Referring Physician Nephrology 06/09/22 documented as of this encounter
--- OUTSIDE RECORDS SUMMARY | 2024-12-02 11:19 | XMS_ITS | Encounter Summary ---
Author Organization Healthcare Address [address] [place] [address] Care Team Providers Care Automotive Glass Specialist Name Role Phone Lynda Spencer MD Unavailable [phone] Dyllan Gil APRN Primary Care Provider [phone] Encounter Details Date Type Department Care Team (Late st Contact Info) Description 10/11/2024 Telephone [facility] Plastic & Reconstructive Surgery [address] [place] [address] Derick Horta Social History Tobacco Use [...] Description 02/01/2025 2:15 PM EDT Office Visit [facility] [address] [place] [address] Munira Keen MD 110 [facility] [address] [place] [address] 02/22/2025 1:00 PM EDT Office Visit [facility] [place] Nephrology, Bone & Mineral Metabolism 135 [address] [facility], [address] [place] [address] Lynda Spencer MD 135 [address] [facility] [address] [place] [address] 03/07/2025 1:40 PM EST Office Visit [facility] Endocrinology [address] [place] [address] Makayla Bahena, APURVA 2[address] [facility] [address] [place] [address] documented as of this encounter Visit Diagnoses Not on filedocumented in this encounter Additional Health Concerns Assessment Noted Time A fall risk assessment has been complete d for the patient 08/24/2024 1:00 PM EDT A Body Mass Index follow-up plan has been documented for the patient 08/24/2024 2:24 PM EDT documented as of this encounter Care Teams Automotive Glass Specialist Relationship Specialty Start Date End Date Dyllan Gil APRN [address] [place] [address] PCP - General 06/11/22 Lynda Spencer MD [address] [address] Referring Physician Nephrology 06/09/22 documented as of this encounter
--- OUTSIDE RECORDS SUMMARY | 2024-12-02 11:19 | XMS_ITS | Encounter Summary ---
Author Organization Healthcare Address [address] [place] [id number] Care Team Providers Care Paster Supervisor Name Role Phone Lynda Spencer MD Unavailable [phone] Dyllan Gil APRN Primary Care Provider [phone] Encounter Details Date Type Department Care Team (Late st Contact Info) Description 11/15/2024 Telephone [facility] [address] [facility] [address] [place] [address] Nikki Ross, RN [facility]OSP[facility] [id number] [address] [place] [id number] Social History Tobacco Use Types Packs/Day Years [...] Miscellaneous Notes * Telephone Encounter - Nikki Ross, RN - 11/15/2024 11:42 AM EDT Outgoing call to pt. No answer and unable to LVM. Pt has nephrology appt scheduled for 11/16/24 documented in this encounter Plan of Treatment Upcoming Encounters Date Type Department Care Team (Late st Contact Info) Description 02/01/2025 2:15 PM EDT Office Visit [facility] [address] [place] [address] Munira Keen MD 110 [facility] 550 [place] [address] 02/22/2025 1:00 PM EDT Office Visit [facility] Nephrology, Bone & Mineral Metabolism 135 [address] [facility], [address] [place] [address] Lynda Spencer MD [address] [place] [address] 03/07/2025 1:40 PM EST Office Visit [facility] [address] [place] [address] Makayla Bahena, ALIGNER TYPEWRITER [address] [facility] [address] [place] [address] documented as of this encounter Visit Diagnoses Not on filedocumented in this encounter Additional Health Concerns Assessment Noted Time A fall risk assessment has been complete d for the patient 10/26/2024 10:01 AM EDT A Body Mass Index follow-up plan has been documented for the patient 11/08/2024 1:10 PM EDT documented as of this encounter Care Teams Paster Supervisor Relationship Specialty Start Date End Date Dyllan Gil APRN [address] [place] [address] [id number] PCP - General 06/11/22 Lynad Spencer MD [address] [address] Referring Physician Nephrology 06/09/22 documented as of this encounter
--- OUTSIDE RECORDS SUMMARY | 2024-12-02 11:19 | XMS_ITS | Encounter Summary ---
Author Organization Healthcare Address [address] [place] [address] Care Team Providers Care Copy Machine Operator Name Role Phone Lynda Spencer MD Unavailable [phone] Dyllan Gil APRN Primary Care Provider [phone] Encounter Details Date Type Department Care Team (Latest Contact Info) Description 11/08/2024 Travel Social History Tobacco Use Types Packs/Day [...] Description 02/01/2025 2:15 PM EDT Office Visit [facility] [address] [place] [address] Munira Keen MD [address] [place] [address] 02/22/2025 1:00 PM EDT Office Visit [facility] Nephrology, Bone & Mineral Metabolism [address], [address] [place] [address] Lynda Spencer MD [address] [place] [address] 03/07/2025 1:40 PM EST Office Visit [facility] Endocrinology [address] [place] [address] Makayla Bahena APRN 2195 [facility] 125 [place] [address] documented as of this encounter Visit Diagnoses Not on filedocumented in this encounter Additional Health Concerns Assessment Noted Time A fall risk assessment has been complete d for the patient 10/26/2024 10:01 AM EDT A Body Mass Index follow-up plan has been documented for the patient 11/08/2024 1:10 PM EDT documented as of this encounter Care Teams Copy Machine Operator Relationship Specialty Start Date End Date Dyllan Gil APRN [address] [place] [address] PCP - General 06/11/22 Lynda Spencer MD [address] [place] [address] Referring Physician Nephrology 06/09/22 documented as of this encounter
--- OUTSIDE RECORDS SUMMARY | 2024-12-02 11:19 | XMS_ITS | Encounter Summary ---
Author Organization [facility] Address [address] [place] [address] Care Team Providers Care Sales Account Representative Name Role Phone Lynda Spencer MD Unavailable [phone] Dyllan Gil APRN Primary Care Provider [phone] Reason for Visit * Reason Comments Med Refill Encounter Details Date Type Department Care Team (Late st Contact Info) Description 10/13/2022 Refill [facility] Endocrinology [address] [place] [address] Makayla Bahena APRN [address] [address] Social History Tobacco Use Types [...] for 30 day supply with 2 refill(s) [facility] pharmacy. documented in this encounter Plan of Treatment Upcoming Encounters Date Type Department Care Team (Late st Contact Info) Description 02/01/2025 2:15 PM EDT Office Visit [facility] [address] [place] [address] Munira Keen MD 110 [facility] 550 [place] [address] 02/22/2025 1:00 PM EDT Office Visit [facility] Nephrology, Bone & Mineral Metabolism 135 [address] [facility], [address] [place] [address] Lynda Spencer MD 135 [address] [facility] [address] [place] [address] 03/07/2025 1:40 PM EST Office Visit [facility] Endocrinology [address] [place] [address] Makayla Bahena, APURVA [address] [place] [address] documented as of this encounter Visit Diagnoses Not on filedocumented in this encounter Additional Health Concerns Assessment Noted Time A fall risk assessment has been complete d for the patient 10/09/2022 12:42 PM EDT A Body Mass Index follow-up plan has been documented for the patient 08/28/2022 2:04 PM EDT documented as of this encounter Care Teams Sales Account Representative Relationship Specialty Start Date End Date Dyllan Gil APRN [address] [place] [address] PCP - General 06/11/22 Lynda Spencer MD [address] [address] Referring Physician Nephrology 06/09/22 documented as of this encounter
--- OUTSIDE RECORDS SUMMARY | 2024-12-02 11:19 | XMS_ITS | Encounter Summary ---
Author Organization Healthcare Address [address] [place] [address] Care Team Providers Care Vacuum Cooker Operator Name Role Phone Lynda Spencer MD Unavailable [phone] Dyllan Gil APRN Primary Care Provider [phone] Encounter Details Date Type Department Care Team (Late st Contact Info) Description 10/07/[address] [facility] Plastic & Reconstructive Surgery [address] [place] [address] Derick Horta Social History Tobacco Use [...] Description 02/01/2025 2:15 PM EDT Office Visit [facility] [address] [place] [address] Munira Keen MD 110 [address] [facility] [address] [place] [address] 02/22/2025 1:00 PM EDT Office Visit [facility] [place] Nephrology, Bone & Mineral Metabolism 135 [address] [facility], [address] [place] [address] Lynda Spencer MD 135 E [facility] [address] [place] [address] 03/07/2025 1:40 PM EST Office Visit [facility] Endocrinology [address] [place] [address] Makayla Bahena, APURVA 2195 [facility] [address] [place] [address] documented as of this encounter Visit Diagnoses Not on filedocumented in this encounter Additional Health Concerns Assessment Noted Time A fall risk assessment has been complete d for the patient 08/24/2024 1:00 PM EDT A Body Mass Index follow-up plan has been documented for the patient 08/24/2024 2:24 PM EDT documented as of this encounter Care Teams Vacuum Cooker Operator Relationship Specialty Start Date End Date Dyllan Gil APRN [address] [place] [address] PCP - General 06/11/22 Lynda Spencer MD [address] [address] Referring Physician Nephrology 06/09/22 documented as of this encounter
--- OUTSIDE RECORDS SUMMARY | 2024-12-02 11:19 | XMS_ITS | Encounter Summary ---
Author Organization Healthcare Address [address] [place] [address] Care Team Providers Care Childbirth Educator Name Role Phone Lynda Spencer MD Unavailable [phone] Dyllan Gil APRN Primary Care Provider [phone] Encounter Details Date Type Department Care Team (Late st Contact Info) Description 12/07/2023 Lab Requisition [facility] [address] [place] [address] Andrea Pierre MD [address] [place] [address] Awaiting organ transplant status Social [...] Description 02/01/2025 2:15 PM EDT Office Visit [facility] [address] [place] [address] Munira Keen MD 110 [address] [facility] [address] [place] [address] 02/22/2025 1:00 PM EDT Office [facility] Nephrology, Bone & Mineral Metabolism [address] [facility], [address] [place] [address] Lynda Spencer MD [address] [place] [address] 03/07/2025 1:40 PM EST Office Visit [facility] Endocrinology [address] [place] [address] Makayla Bahena S, BACK STRIP MACHINE OPERATOR 2195 [facility] [address] [place] [address] documented as of this encounter [...] MD LAB BLOOD ORDERABLES Final Res ult [facility] [address] documented in this encounter Visit Diagnoses Diagnosis Awaiting organ transplant status documented in this encounter Additional Health Concerns Assessment Noted Time A fall risk assessment has been complete d for the patient 10/15/2023 3:13 PM EDT A Body Mass Index follow-up plan has been documented for the patient 11/27/2023 10:13 AM EDT documented as of this encounter Care Teams Childbirth Educator Relationship Specialty Start Date End Date Dyllan Gil APRN [address] [place] [address] PCP - General 06/11/22 Lynda Spencer MD [address] [place] [address] Referring Physician Nephrology 06/09/22 documented as of this encounter
--- OUTSIDE RECORDS SUMMARY | 2024-12-02 11:19 | XMS_ITS ---
Author Organization [facility] Address [address] [place] [address] Care Team Providers Care Global Account Executive Name Role Phone Lynda Spencer MD Unavailable Dyllan Gil APRN Primary Care Provider [phone] Transplant Episode Kidney Candidate [facility] ([place] [place] Center waitlisted on 12/24/2022 Marked as Inactive on 03/31/2024 Reason: Temporarily too Sick Kidney CoordinatorNikki Ross RN Fax: N/A Email: N/A Scores Score Value Updated Exceptions/Reas ons CPRA 29 02/02/2024 EPTS (Calc) 32 12/02/2024 [facility] Organ Diagnosis Organ Primary Contributory Kidney Diabetes Mellitus - Type II Hype rtensive Nephrosclerosis Care Team Name Role Phone Fax Email Nikki Ross RN Kidney Coordinator [phone] N/A N/A Dyllan Gil APRN Primary Care Provider [phone] N/A Christine Rosado Email Campaign Specialist [phone] N/A N/A Lynda Spencer MD Referring Physician [phone] N/A Events Pre-Transplant Referred: 06/09/2022 Evaluation began: 07/04/2022 Committee: 07/02/2022 Center waitlisted: 12/24/2022
--- OUTSIDE RECORDS SUMMARY | 2024-12-02 11:19 | XMS_ITS | Encounter Summary ---
Author Organization Healthcare Address [address] [place] [address] Care Team Providers Care Svp Research And Strategic Analysis Name Role Phone Lynda Spencer MD Unavailable [phone] Dyllan Gil APRN Primary Care Provider [phone] Encounter Details Date Type Department Care Team (Latest Contact Info) Description 11/16/2024 Travel Social History Tobacco Use Types Packs/Day [...] Description 02/01/2025 2:15 PM EDT Office Visit [facility] [address] [place] [address] Munira Keen MD [address] [place] [address] 02/22/2025 1:00 PM EDT Office Visit [facility] Nephrology, Bone & Mineral Metabolism [address], [address] [place] [address] Lynda Spencer MD [address] [place] [address] 03/07/2025 1:40 PM EST Office Visit [facility] Endocrinology [address] [place] [address] Makayla Bahena APRN 2195 [facility] 125 [place] [address] documented as of this encounter Visit Diagnoses Not on filedocumented in this encounter Additional Health Concerns Assessment Noted Time A fall risk assessment has been complete d for the patient 11/16/2024 1:21 PM EDT A Body Mass Index follow-up plan has been documented for the patient 11/17/2024 2:03 PM EDT documented as of this encounter Care Teams Svp Research And Strategic Analysis Relationship Specialty Start Date End Date Dyllan Gil APRN [address] [place] [address] PCP - General 06/11/22 Lynda Spnecer MD [address] [place] [address] Referring Physician Nephrology 06/09/22 documented as of this encounter
--- OUTSIDE RECORDS SUMMARY | 2024-12-02 11:19 | XMS_ITS | Clinical Summary ---
Author Organization [facility] Address [address] [place] [address] Care Team Providers Care Store Management Trainee Name Role Phone Lynda Spencer MD Unavailable [phone] Dyllan Gil APRN Primary Care Provider [phone] Allergies Active Allergy Reactions Criticality Noted Date Comments Fish Oil Nausea Low 12/05/2022 Prednisolone Other - please docum ent in the comment field Low 12/05/2022 Medications cetirizine (ZyrTEC) 10 MG tablet 04/09/20 20 Active lamoTRIgine (LaMICtal) 100 MG tablet Take 1 tablet (100 mg) by mouth 2 (two) times a day. 11/14/19 20 Active omeprazole (PriLOSEC) [address] capsule Take 1 capsule (40 mg) by mouth 1 (one) time each day. 08/07/19 21 Active QUEtiapine (SEROquel) 200 MG tablet Take 1 tablet (200 mg) by mouth every night. 12/06/19 22 Active famotidine (Pepcid) 20 MG tablet 08/25/19 24 Active Blood Glucose Monitoring Suppl (INCIDE Verio Flex System) w/Device kitIndications:T ype 2 diabetes mellitus with hyperglycemia, unspecified whether mcfp insulin use ([facility]) Use to test blood glucose daily DX E11.9 1 kit 02/19/20 24 Active Blood Glucose Monitoring Suppl (Blood Glucose Monitor System) w/Device kit Test blood sugars twice a day. Dx E11.9 1 kit 06/22/19 25 Active metoprolol succinate XL (Toprol-XL) 25 MG 24 hr tablet Take 1 tablet (25 mg) by mouth daily. Active traZODone (Desyrel) 50 MG tablet Take 1-2 tablets by mouth at night as needed for sleep. 08/17/19 25 Active albuterol 108 (90 Base) MCG/ACT inhaler INHALE 1 PUFF BY MOUTH EVERY 4 HOURS NEEDED FOR SHORTNESS OF BREATH OR WHEEZING Active losartan (Cozaar) 25 MG tabletIndication s:Essential hypertension Take 1 tablet by mouth daily. 90 tablet 3 08/18/19 25 026 Active cholecalciferol (Vitamin D-3) 25 MCG (1000 UT) tabletIndication s:CKD (chronic kidney disease) stage 4, GFR 15-29 ml/min ([facility]) Take 1 tablet by mouth daily. 90 tablet 08/18/19 25 026 Active atorvastatin (Lipitor) 20 MG tablet TAKE ONE TABLET BY MOUTH ONCE A DAY 90 tablet 08/31/19 25 Active Continuous Glucose Sensor (Dexcom G7 Sensor) misc 1 each every 10 days. 9 each 11/09/19 25 026 Active Continuous Glucose Telesales Specialist (Dexcom G7 Telesales Specialist) device 1 each daily. Use as directed 1 each 11/09/19 25 026 Active NovoLOG FLEXPEN 100 UNIT/ML injection pen Inject subcutaneous 1:50>150 SS, max dose 20u/day 20 mL 11/09/19 25 Active glucose blood test strip Please provide strips compatible with patient's meter and insurance, 4x/day 360 each 11/09/19 25 Active Lancets misc Use 4x/day as directed 360 each 11/09/19 25 Active insulin glargine (Lantus SoloStar, Basaglar) 100 UNIT/ML injection pen Inject subcutaneous 20 units daily plus titration as advised, max dose 50u/day 45 mL 11/09/19 25 Active pen needle, diabetic (B-D UF III MINI PEN NEEDLES) 31G X 5 MM misc Use 1-4x/day 360 each 11/09/19 25 Active Lancets Thin miscIndications: Type 2 diabetes mellitus with diabetic nephropathy, with long-term current use of insulin ([facility]) Use to check BG 2 times a day 60 each 03/24/20 23 Discontinu ed(Duplica te order) glucose blood (OneTouch Verio) test stripIndications :Type 2 diabetes mellitus with diabetic nephropathy, with long-term current use of insulin ([facility]) TEST BLOOD SUGAR 4 TIMES A DAY DIRECTED 120 strip 5 04/06/20 23 Discontinu ed(Therapy completed) glucose blood test strip Please provide strips compatible with patient's meter and insurance 100 each 11 06/24/19 24 Discontinu ed(Reorder ) Lancets misc Use 4x/day as directed 360 each 3 02/24/20 24 Discontinu ed(Reorder ) dapagliflozin (Farxiga) 10 MG tablet Take 1 tablet (10 mg) by mouth daily. Discontinu ed(Per Patient Report) Active Problems Problem Noted Date Diagnosed Date Medication refill 11/08/2024 Cigarette smoker 09/23/2024 Abnormal gait 07/20/2024 Seasonal [...] 04/30/2023 Greater trochanteric bursitis of both hips 01/04 /2024 Low back pain 04/30/2023 Bilateral leg pain [...] Encounters Date Type Department Care Team Description 12/01/2024 Telephone [facility] Endocrinology [address] [place] [address] Makayla Bahena APRN 11/16/2024 1:20 PM EDT Office Visit [facility] Nephrology, Bone & Mineral Metabolism [address] [address], [address] [place] [address] Lynda Spencer MD CKD (chronic kidney disease) stage 4, GFR 15-29 ml/min ([facility]) (Primary Dx) 11/16/2024 Telephone [facility] [address] [place] [address] Nikki Ross RN 11/16/2024 Travel 11/15/2024 Telephone [facility] [address] [place] [address] Nikki Ross RN 11/08/2024 12:20 PM EDT Office Visit [facility] Endocrinology [address] [place] [address] Makayla Bahena S, JEWEL BEARING GRINDER Type 2 diabetes mellitus with hyperglycemia, unspecified whether mcfp insulin use ([facility]) (Primary Dx); Retinopathy; Neuropathy; Essential hypertension; Hyperlipidemia, unspecified hyperlipidemia type; CKD (chronic kidney disease) stage 4, GFR 15-29 ml/min ([facility]); Overweight; Medication refill 11/08/2024 Travel 10/26/2024 9:45 AM EDT Office Visit [facility] [address] [place] [address] Munira Keen MD 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 type 2 diabetes mellitus (Primary Dx); Vitreous hemorrhage of left eye ([facility]) 10/26/2024 2:00 AM EDT Ancillary Procedure [facility] [address] [place] [address] 10/26/2024 Travel 10/24/2024 Telephone [facility] [address] [place] [address] Derick Horta 10/11/2024 Telephone [facility] [address] [place] [address] Derick Horta 10/10/2024 Telephone [facility] [address] [place] [address] Derick Horta 10/07/2024 Telephone [facility] [address] [place] [address] Derick Horta from Last 3 Months Immunizations Immunization Administration [...] F) 11/16/2024 1:09 PM EDT Respiratory Rate 16 07/11/2024 1:36 PM EDT Oxygen Saturation 96% 11/16/2024 1:0 9 PM EDT Inhaled Oxygen Concentration - - Weight 76.8 kg (169 lb 5 oz) 11/16/2024 1:09 PM EDT Height 167.6 cm (5' 6 ) 11/16/2024 1:0 9 PM EDT Body Mass Index 27.33 11/16/2024 1:09 PM EDT Plan of Treatment Upcoming Encounters Date Type Department Care Team (Late st Contact Info) Description 02/01/2025 2:15 PM EDT Office Visit [facility] [address] [place] [address] Munira Keen MD [address] [facility] [address] [place] [address] 02/22/2025 1:00 PM EDT Office Visit [facility] Nephrology, Bone & Mineral Metabolism [address], [address] [place] [address] Lynda Spencer MD [address] [address] [place] [address] 03/07/2025 1:40 PM EST Office Visit [facility] Endocrinology [address] [place] [address] Makayla Bahena S, JEWEL BEARING GRINDER [address] [facility] [address] [place] [address] Health Maintenance Due Date Last Done Comments [...] 2019 FIT 2019 FOBT 2019 Sigmoidoscopy 2019 [id number] Vaccine (2 - season) 2023 07/31/2020 [facility]-Lung [...] Additional history exists [facility]-Obesity Intervention Completed 025, 11/08/2024, 11/08/2024, Additional history exists HPV Vaccines Aged Out [...] renal disease ([facility]) HIV 1/2 ANTIBODY/ANTIGEN SCREEN WITH REFLEX TO HIV I/II DIFFERENTIATION Routine 07/11/2024 12:43 PM EDT End stage renal disease ([facility]) HEMOGLOBIN A1C Routine 07/11/2024 12:43 PM EDT End stage renal disease ([facility]) MAMMOGRAPHY BREAST DIAGNOSTIC TOMOSYNTHESIS BILATERAL Routine 07/21/2022 [...] 1.25 MG/0.05ML Route: Intravitreal, Site: Left Eye [facility]: 03560-512-75, Lot: [id number], Expiration date: 11/19/2024 Post-op Post injection exam [...] Keen MD OPHTH TOMOGRAPHY Final Result * HIV 1 & 2 Antibody/Antigen Screen (07/11/2024 12:43 PM EDT) Pathologist [facility] HIV 1 & 2 Antibody/Antigen Screen Non Reactive Non Reactive 07/11/2024 2:13 PM EDT [facility] Comment:Screening for HIV 1 & 2 antibodies, and P24 antigen is NONREACTIVE. No confirmatory testing is required. Blood Venous blood specimen / Unknown Venipuncture / Unknown 07/11/2024 12:43 PM EDT 07/11/2024 1:29 PM EDT Stacey Escamilla MD LAB BLOOD ORDERABLES Final Resul t Performing Organization Address City/[facility] [place] [address] * Hepatitis C Antibody (07/11/2024 12:43 PM EDT) Pathologist [facility] Hepatitis C Antibody Negative Negative 07/11/2024 2:11 PM EDT [facility] Blood Venous blood specimen / Unknown Venipuncture / Unknown 07/11/2024 12:43 PM EDT 07/11/2024 1:29 PM EDT us Stacey Escamilla MD LAB BLOOD ORDERABLES Final Resul t Performing Organization Address City/[facility] Co de Phone Number [facility] [address] [place] [address] * (ABNORMAL) Hemoglobin A1c (07/11/2024 12:43 PM EDT) Pathologist [facility] Hemoglobin A1c 7.9(H) <5.7 % 07/11/2024 1:43 PM EDT [facility] Blood Venous blood specimen / Unknown Venipuncture / Unknown 07/11/2024 12:43 PM EDT 07/11/2024 1:22 PM EDT Narrative [facility] - 07/11/2024 1:43 PM EDT HA1C Interpretive Data: Diagnosis of Diabetes: Diabetic > or = 6.5% Pre-diabetic 5.7 to 6.4% Non-diabetic < or = 5.6% Glycemic Targets for Type I and Type II Diabetics: Non- Adults <7.0% Adults <6.0% Children and Adolescents <7.5% Source: [place] [employer]. Standards of medical care in diabetes,2017. Diabetes Care.2017:40 (suppl 1):S1-S135. HbA1c assay performed by an ion-exchange chromatography method that is certified traceable to the DCCT. Stacey Escamilla MD LAB BLOOD ORDERABLES Final Resul t [facility] [address] [place] [address] * Mammography Breast Diagnostic Tomosynthesis Bilateral (07/21/2022) Anatomical Region Laterality Modality Breast Bilateral Mammography Historical Provider IMG BI PROCEDURES Final R esult * Cytology (03/01/2001 12:00 AM EST) 03/01/2001 03/02/2001 12: 20 PM EST Narrative [facility] - 03/09/2001 11:24 AM EST [facility] MR #: [id number] [facility] [place], [place] [address] 1975 (Age: 25) FW Collect Date: 03/01/2001 00:00 Receipt Date: 03/02/2001 12:20 Page 1 DEPARTMENT OF PATHOLOGY AND LABORATORY MEDICINE CYTOPATHOLOGY REPORT Email: [email or web address] ATTENDING MD/Practitioner: Ricky Cardoso MD Service: CWO Location: [facility] OTHER MD(S): Chace Muhammad MD Reported: [...] results is suggested (please call Microbiology at [phone] for results). CLINICAL INFORMATION: Menstrual History: Date of Last Menstrual Period: {Not Provided} SPECIMEN DESCRIPTION: A: THIN PREP (CERVICAL/VAGINAL) THIN PREP PROCESS CELLULAR ENHANCEMENT ICD: V76.2 CERVIX, SPECIAL SCREENING FOR MALIGNANT NEOPLASM F: A; THIN SCRN [id number] SNOMED CODES: A; [id number] In cases where a pathologist has signed out the report, the service has been rendered in part by a resident. The signing pathologist has performed and is responsible for the reported pathologic evaluation. us Historical Provider LAB PATHOLOGY ORDERABLES Final Result [employer] from Last 3 Months or Most Recently Relevant to Health Maintenance Insurance [facility] MEDICAID [employer] Care Teams Store Management Trainee Relationship Specialty Start Date End Date Dyllan Gil APRN [address] [place] [address] K[place] [address] PCP - General 06/11/22 Lynda Spencer MD [address] [address] Referring Physician Nephrology 06/09/22
--- OUTSIDE RECORDS SUMMARY | 2024-12-02 11:19 | XMS_ITS | Encounter Summary ---
Author Organization Healthcare Address [address] [place] [address] Care Team Providers Care Sales Attendant Name Role Phone Lynda Spencer MD Unavailable [phone] Dyllan Gil APRN Primary Care Provider [phone] Encounter Details Date Type Department Care Team (Late st Contact Info) Description 10/10/2024 Telephone [facility] Plastic & Reconstructive Surgery [address] [place] [address] Derick Horta Social History Tobacco Use [...] Description 02/01/2025 2:15 PM EDT Office Visit [facility] [address] [place] [address] Munira Keen MD [address] [facility] [address] [place] [address] 02/22/2025 1:00 PM EDT Office Visit [facility] Nephrology, Bone & Mineral Metabolism [address] [facility] [place] [address] Lynda Spencer MD [address] [facility] [address] [place] [address] 03/07/2025 1:40 PM EST Office Visit [facility] Endocrinology [address] [place] [address] Makayla Bahena, APURVA [address] [facility] [address] [place] [address] documented as of this encounter Visit Diagnoses Not on filedocumented in this encounter Additional Health Concerns Assessment Noted Time A fall risk assessment has been complete d for the patient 08/24/2024 1:00 PM EDT A Body Mass Index follow-up plan has been documented for the patient 08/24/2024 2:24 PM EDT documented as of this encounter Care Teams Sales Attendant Relationship Specialty Start Date End Date Dyllan Gil APRN [address] [place] [address] PCP - General 06/11/22 Lynda Spencer MD [address] [address] Referring Physician Nephrology 06/09/22 documented as of this encounter
--- OUTSIDE RECORDS SUMMARY | 2024-12-02 11:19 | XMS_ITS | Encounter Summary ---
Author Organization Healthcare Address [address] [place] [address] Care Team Providers Care Enrollment Coordinator Name Role Phone Lynda Spencer MD Unavailable [phone] Dyllan Gil APRN Primary Care Provider [phone] Encounter Details Date Type Department Care Team (Late st Contact Info) Description 01/05/2024 Lab Requisition [facility] [address] [place] [address] Stacey Escamilla MD [address] [place] [address] Awaiting organ transplant status [...] Description 02/01/2025 2:15 PM EDT Office Visit [facility] [address] [place] [address] Munira Keen MD [address] [facility] [address] [place] [address] 02/22/2025 1:00 PM EDT Office Visit [facility] Nephrology, Bone & Mineral Metabolism [address], [address] [place] [address] Lynda Spencer MD [address] [place] [address] 03/07/2025 1:40 PM EST Office Visit [facility] Endocrinology [address] [place] [address] Makayla Bahena S, DIRECTOR OF ASSESSING [address] [facility] [address] [place] [address] documented as of this encounter [...] t [facility] [address] documented in this encounter Visit Diagnoses Diagnosis Awaiting organ transplant status documented in this encounter Additional Health Concerns Assessment Noted Time A fall risk assessment has been complete d for the patient 10/15/2023 3:13 PM EDT A Body Mass Index follow-up plan has been documented for the patient 12/23/2023 2:37 PM EDT documented as of this encounter Care Teams Enrollment Coordinator Relationship Specialty Start Date End Date Dyllan Gil APRN [address] [place] [address] PCP - General 06/11/22 Lynda Spencer MD [facility] [address] [address] Referring Physician Nephrology 06/09/22 documented as of this encounter
--- OUTSIDE RECORDS SUMMARY | 2024-12-02 11:19 | XMS_ITS | Encounter Summary ---
Author Organization Healthcare Address [address] [place] [address] Care Team Providers Care Auto Accessories Installer Name Role Phone Lynda Spencer MD Unavailable [phone] Dyllan Gil APRN Primary Care Provider [phone] Encounter Details Date Type Department Care Team (Late st Contact Info) Description 10/24/2024 Telephone [facility] Plastic & Reconstructive Surgery [address] [place] [address] Derick Horta Social History Tobacco Use [...] Description 02/01/2025 2:15 PM EDT Office Visit [facility] [address] [place] [address] Munira Keen MD [address] [facility] [address] [place] [address] 02/22/2025 1:00 PM EDT Office Visit [facility] [place] Nephrology, Bone & Mineral Metabolism [address] [facility] [place] [address] Lynda Spencer MD [address] [facility] [address] [place] [address] 03/07/2025 1:40 PM EST Office Visit [facility] Endocrinology [address] [place] [address] Makayla Bahena, APURVA [address] [facility] [address] [place] [address] documented as of this encounter Visit Diagnoses Not on filedocumented in this encounter Additional Health Concerns Assessment Noted Time A fall risk assessment has been complete d for the patient 08/24/2024 1:00 PM EDT A Body Mass Index follow-up plan has been documented for the patient 08/24/2024 2:24 PM EDT documented as of this encounter Care Teams Auto Accessories Installer Relationship Specialty Start Date End Date Dyllan Gil APRN [address] [place] [address] PCP - General 06/11/22 Lynda Spencer MD [address] [address] Referring Physician Nephrology 06/09/22 documented as of this encounter
--- OUTSIDE RECORDS SUMMARY | 2024-12-02 11:19 | XMS_ITS | Encounter Summary ---
Author Organization [facility] Address [address] [place] [address] Care Team Providers Care Rn Pacu Name Role Phone Al Fischer MD Primary Care Provider [phone] Lynda Spencer MD Unavailable [phone] Dyllan Gil APRN Primary Care Provider [phone] Reason for Visit * Reason Comments Med Refill Encounter Details Date Type Department Care Team (Late st Contact Info) Description 08/21/2021 Refill [facility]ology [address] [place] [address] Makayla Bahena APRN [address] [facility] [address] [place] [address] Social History Tobacco Use Types [...] Description 02/01/2025 2:15 PM EDT Office Visit [facility] [address] [place] [address] Munira Keen MD [address] [place] [address] 02/22/2025 1:00 PM EDT Office Visit [facility] Nephrology, Bone & Mineral Metabolism [address] [facility] [place] [address] Lynda Spencer MD [address] [place] [address] 03/07/2025 1:40 PM EST [facility] Endocr[facility]ology [address] [place] [address] Makayla Bahena APRN [address] [facility] [address] [place] [address] documented as of this encounter Visit Diagnoses Not on filedocumented in this encounter Additional Health Concerns Assessment Noted Time A fall risk assessment has been complete d for the patient 01/31/2021 2:02 PM EDT documented as of this encounter Care Teams Rn Pacu Relationship Specialty Start Date End Date Al Fischer MD [address] [place] [address] PCP - General 09/07/20 06/10/22 Dyllan Gil, ACTUARY [address] [place] [address] PCP - General 06/11/22 Lynda Spencer MD [address] [place] [address] Referring Physician Nephrology 06/09/22 documented as of this encounter
--- OUTSIDE RECORDS SUMMARY | 2024-12-02 11:19 | XMS_ITS | Encounter Summary ---
Author Organization Healthcare Address [address] [place] [address] Care Team Providers Care Cyber Software Engineer Name Role Phone Lynda Spencer MD Unavailable [phone] Dyllan Gil APRN Primary Care Provider [phone] Encounter Details Date Type Department Care Team (Late st Contact Info) Description 11/04/2023 Lab Requisition [facility] [address] [place] [address] Stacey Escamilla MD [address] [place] [address] Awaiting organ transplant status Social [...] Description 02/01/2025 2:15 PM EDT Office Visit [facility] [address] [place] [address] Munira Keen MD [address] [facility] [address] [place] [address] 02/22/2025 1:00 PM EDT Office Visit [facility] Nephrology, Bone & Mineral Metabolism [address] [place] [address] Lynda Spencer MD [address] [place] [address] 03/07/2025 1:40 PM EST Office Visit [facility] Endocrinology [address] [place] [address] Makayla Bahena S, COOKER SULFATE [address] [facility] [address] [place] [address] documented as of this encounter [...] MD LAB BLOOD ORDERABLES Final Resul t [facility] [address] documented in this encounter Visit Diagnoses Diagnosis Awaiting organ transplant status documented in this encounter Additional Health Concerns Assessment Noted Time A fall risk assessment has been complete d for the patient 10/15/2023 3:13 PM EDT A Body Mass Index follow-up plan has been documented for the patient 09/07/2023 4:29 PM EDT documented as of this encounter Care Teams Cyber Software Engineer Relationship Specialty Start Date End Date Dyllan Gil APRN [address] [place] [address] PCP - General 06/11/22 Lynda Spencer MD [facility] [address] [address] Referring Physician Nephrology 06/09/22 documented as of this encounter
--- OUTSIDE RECORDS SUMMARY | 2024-12-02 11:19 | XMS_ITS | Encounter Summary ---
Author Organization Healthcare Address [address] [place] [address] Care Team Providers Care Crop Grain Or Livestock Farm Manager Name Role Phone Lynda Spencer MD Unavailable [phone] Dyllan Gil APRN Primary Care Provider [phone] Encounter Details Date Type Department Care Team (Late st Contact Info) Description 02/05/2024 Lab Requisition [facility] [address] [place] [address] Stacey Escamilla MD [address] [place] [address] Awaiting organ transplant status Social [...] Description 02/01/2025 2:15 PM EDT Office Visit [facility] [address] [place] [address] Munira eKen MD 110 [address] [facility] [address] [place] [address] 02/22/2025 1:00 PM EDT Office Visit [facility] Nephrology, Bone & Mineral Metabolism [address], [address] [place] [address] Lynda Spencer MD [address] [place] [address] 03/07/2025 1:40 PM EST Office Visit [facility] Endocrinology [address] [place] [address] Makayla Bahena S, MANAGER PLANNING 2195 [facility] [address] [place] [address] documented as of this encounter [...] MD LAB BLOOD ORDERABLES Final Resul t [facility] [address] documented in this encounter Visit Diagnoses Diagnosis Awaiting organ transplant status documented in this encounter Additional Health Concerns Assessment Noted Time A fall risk assessment has been complete d for the patient 10/15/2023 3:13 PM EDT A Body Mass Index follow-up plan has been documented for the patient 12/23/2023 2:37 PM EDT documented as of this encounter Care Teams Crop Grain Or Livestock Farm Manager Relationship Specialty Start Date End Date Dyllan Gil APRN [address] [place] [address] PCP - General 06/11/22 Lynda Spencer MD [facility] [address] [address] Referring Physician Nephrology 06/09/22 documented as of this encounter
--- OUTSIDE RECORDS SUMMARY | 2024-12-02 11:19 | XMS_ITS | Encounter Summary ---
Author Organization [facility] Address [address] [place] [address] Care Team Providers Care Crime Victim Specialist Name Role Phone Lynda Spencer MD Unavailable [phone] Dyllan Gil APRN Primary Care Provider [phone] Encounter Details Date Type Department Care Team (Late st Contact Info) Description 12/01/2024 Telephone [facility] Endocrinology [address] [place] [address] Makayla Bahena APRN 2195 [facility] 125 [place] [address] Social History Tobacco Use Types [...] encounter Miscellaneous Notes * Telephone Encounter - Kami Perez - 12/02/2024 10:00 AM EDT Return patient's call and was able to get voicemail. Left message for patient that a new script with an updated amount was sent on November 08 the day of her appointment with provider Makayla Bahena. Let patient know it looked like her last dispense was on an older script and advised to call her pharmacy and inquire about the new script sent. Let patient know if there are things that we can assist with to help solve the further to call back on adult ed line. * Telephone Encounter - Kami Perez - 12/01/2024 4:12 PM EDT Tried to call but got vm. Mailbox was too full and could not leave a message. documented in this encounter Plan of Treatment Upcoming Encounters Date Type Department Care Team (Late st Contact Info) Description 02/01/2025 2:15 PM EDT Office Visit [facility] [address] [place] [address] Munira Keen MD [address] [address] 02/22/2025 1:00 PM EDT Office Visit [facility] Nephrology, Bone & Mineral Metabolism [address] [facility], [address] [place] [address] Lynda Spencer MD [address] [place] [address] 03/07/2025 1:40 PM EST [facility] [address] [place] [address] Makayla Bahena, OCCUPATIONAL THERAPY SUPERVISOR 2195 [facility] [address] [place] [address] documented as of this encounter Visit Diagnoses Not on filedocumented in this encounter Additional Health Concerns Assessment Noted Time A fall risk assessment has been complete d for the patient 11/16/2024 1:21 PM EDT A Body Mass Index follow-up plan has been documented for the patient 11/17/2024 2:03 PM EDT documented as of this encounter Care Teams Crime Victim Specialist Relationship Specialty Start Date End Date Dyllan Gil, OCCUPATIONAL THERAPY SUPERVISOR [address] [place] [address] PCP - General 06/11/22 Lynda Spencer MD [address] [place] [address] Referring Physician Nephrology 06/09/22 documented as of this encounter
--- OUTSIDE RECORDS SUMMARY | 2024-12-02 11:19 | XMS_ITS | Encounter Summary ---
Author Organization Healthcare Address [address] [place] [id number] Care Team Providers Care Warm In Worker Name Role Phone Lynda Spencer MD Unavailable [phone] Dyllan Gil APRN Primary Care Provider [phone] Encounter Details Date Type Department Care Team (Late st Contact Info) Description 11/16/2024 Telephone [facility] [address] [facility] [address] [place] [address] Nikki Ross, RN HOSPITAL K[facility]NEY [id number] [address] [place] [id number] Social History Tobacco Use Types Packs/Day Years [...] Telephone Encounter - Nikki Ross RN - 11/16/2024 2:15 PM EDT Outgoing call to pt, discussed most recent GFR is 28, which is too high to be listed active. Pt said she completed mammogram in June and has followed up with her check scaler. Pt has started Chantrix and is working on stopping smoking. All questions answered to stated satisfaction. documented in this encounter Plan of Treatment Upcoming Encounters Date Type Department Care Team (Late st Contact Info) Description 02/01/2025 2:15 PM EDT Office Visit [facility] [address] [place] [address] Munira Keen MD 110 [address] [facility] 550 [place] [address] 02/22/2025 1:00 PM EDT Office Visit [facility] Nephrology, Bone & Mineral Metabolism [address] [facility], [address] [place] [address] Lynda Spencer MD [address] [facility] [address] [place] [address] 03/07/2025 1:40 PM EST Office Visit [facility] Endocrinology [address] [place] [address] Makayla Bahena, MEMBER OF TECHNICAL STAFF 219 [facility] [address] [place] [address] documented as of this encounter Visit Diagnoses Not on filedocumented in this encounter Additional Health Concerns Assessment Noted Time A fall risk assessment has been complete d for the patient 11/16/2024 1:21 PM EDT A Body Mass Index follow-up plan has been documented for the patient 11/17/2024 2:03 PM EDT documented as of this encounter Care Teams Warm In Worker Relationship Specialty Start Date End Date Dyllan Gil APRN [address] [place] [address] PCP - General 06/11/22 Lynda Spencer MD [address] [place] [id number] Referring Physician Nephrology 06/09/22 documented as of this encounter
--- OUTSIDE RECORDS SUMMARY | 2024-12-02 11:19 | XMS_ITS | Encounter Summary ---
Author Organization [facility] Address [address] [place] [address] Care Team Providers Care Food Chemist Name Role Phone Lynda Spencer MD Unavailable [phone] Dyllan Gil APRN Primary Care Provider [phone] Reason for Visit * Reason Comments Med Refill Encounter Details Date Type Department Care Team (Late st Contact Info) Description 03/25[facility]20[facility] [address] [place] [address] Makayla Bahena APRN [address] [address] Social History Tobacco Use Types [...] Description 02/01/2025 2:15 PM EDT Office Visit [facility] [address] [place] [address] Munira Keen MD 110 [facility] 550 [place] [address] 02/22/2025 1:00 PM EDT Office Visit [facility] Nephrology, Bone & Mineral Metabolism [address] [facility], [address] [place] [address] Lynda Spencer MD 135 [address] [facility] [address] [place] [address] 03/07/2025 1:40 PM EST Office Visit [facility] [address] [place] [address] Makayla Bahena, APURVA [address] [place] [address] documented as of this encounter Visit Diagnoses Not on filedocumented in this encounter Additional Health Concerns Assessment Noted Time A fall risk assessment has been complete d for the patient 03/09/2023 4:01 PM EST A Body Mass Index follow-up plan has been documented for the patient 03/24/2023 1:29 PM EST documented as of this encounter Care Teams Food Chemist Relationship Specialty Start Date End Date Dyllan Gil APRN [address] [place] [address] PCP - General 06/11/22 Lynda Spencer MD [address] [address] Referring Physician Nephrology 06/09/22 documented as of this encounter
--- OUTSIDE RECORDS SUMMARY | 2024-12-02 11:19 | XMS_ITS | Encounter Summary ---
Author Organization [facility] Address [address] [place] [address] Care Team Providers Care Flat Screen Worker Name Role Phone Lynda Spencer MD Unavailable Dyllan Gil APRN Primary Care Provider [phone] Encounter Details Date Type Department Care Team [...] Description 02/01/2025 2:15 PM EDT Office Visit [facility] [address] [place] [address] Munira Keen MD 110 [address] [facility] [address] [place] [address] 02/22/2025 1:00 PM EDT Office Visit [facility] Nephrology, Bone & Mineral Metabolism 135 [address] [facility], [address] [place] [address] Lynda Spencer MD [address] [place] [address] 03/07/2025 1:40 PM EST Office Visit [facility] Endocrinology [address] [place] [address] Makayla Bahena APRN 2195 [facility] 125 [place] [address] documented as of this encounter Visit Diagnoses Not on filedocumented in this encounter Additional Health Concerns Assessment Noted Time A fall risk assessment has been complete d for the patient 10/26/2024 10:01 AM EDT A Body Mass Index follow-up plan has been documented for the patient 10/26/2024 10:22 AM EDT documented as of this encounter Care Teams Flat Screen Worker Relationship Specialty Start Date End Date Dyllan Gil APRN [address] [place] [address] PCP - General 06/11/22 Lynda Spencer MD [address] [place] [address] Referring Physician Nephrology 06/09/22 documented as of this encounter
== END 2024-12-01 23:59 | disposition home or self-care (01) ==
LOC: LAB.DROPOF 12-02 11:13
PROVIDERS: PCP Student in an Organized Health Care Education/Training Program; Visit Provider Student in an Organized Health Care Education/Training Program
DX: R35.0 Frequency of micturition (principal)
CPT/HCPCS: 87086

== ENCOUNTER 2024-12-07 12:06 | Outpatient (CLI) | payer MEDICAID, SELFPAY ==
--- OUTSIDE RECORDS SUMMARY | 2024-10-26 02:00 | XMS_ITS | Encounter Summary ---
Author Organization [facility] Address [address] [place] [address] Care Team Providers Care Casino Cage Cashier Name Role Phone Lynda Spencer MD Unavailable [phone] Dyllan Gil APRN Primary Care Provider [phone] Encounter Details Date Type Department Care Team (Late st Contact Info) Description 10/26/2024 2:00 AM EDT Ancillary Procedure [facility] [address] [place] [address] Social History Tobacco Use Types [...] Description 02/01/2025 2:15 PM EDT Office Visit [facility] [address] [place] [address] Munira Keen MD [address] [place] [address] 02/22/2025 1:00 PM EDT Office Visit [facility] Nephrology, Bone & Mineral Metabolism [address], [address] [place] [address] Lynda Spencer MD [address] [place] [address] 03/07/2025 1:40 PM EST Office Visit [facility] Endocrinology [address] [place] [phone] Makayla Bahena, ELASTIC ATTACHER CHAINSTITCH [address] [place] [address] documented as of this encounter [...] documented as of this encounter Care Teams Casino Cage Cashier Relationship Specialty Start Date End Date Dyllan Gil APRN [address] [place] [address] PCP - General 06/11/22 Lynda Spencer MD [address] [place] [phone] Referring Physician Nephrology 06/09/22 documented as of this encounter
--- OUTSIDE RECORDS SUMMARY | 2024-10-26 09:45 | XMS_ITS | Encounter Summary ---
Author Organization [facility] Address [address] 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 2 diabetes mellitus Vitreous hemorrhage of left eye ([facility]/HCC) Procedures [place] BEVACIZUMAB INJECTION Munira Keen MD [address] [place] [address] Phone: tel: fax: Referral ID Status Reason Start Date Expiration Date V isits Requested Visits Authorized [id number] Authorized 10/26/2024 04/27/2026 1 14 Reason for Visit * Reason Comments Retinal Injection Encounter Details Date Type Department Care Team (Late st Contact Info) Description 10/26/2024 9:45 AM EDT Office Visit [facility] [address] [place] [address] Munira Keen MD [address] [place] [address] Proliferative diabetic retinopathy of both [...] reach the clinic on the phone. Call [phone] and ask for the assistant professor of anthropology auto phone installer if it is after hours or a [...] Diagnosis Date Ankle fracture Bipolar affective disorder ([facility]) Cataract [id number] Chronic kidney disease Diabetic retinopathy ([facility]) HLD (hyperlipidemia) Hypertension Hypertensive retinopathy Hypoglycemia Lymphedema, [...] EXTRACTION W/ INTRAOCULAR LENS IMPLANT Right 03/08/2024 [facility] SECTION, LOW TRANSVERSE N/A 1994, 2000 ESOPHAGOGASTRODUODENOSCOPY [...] diabetic, left eye - had surgery in [place] on OD recently with pre-op ELICIA - [...] reach the clinic on the phone. Call [phone] and ask for the assistant professor of anthropology auto phone installer if it is after hours or a [...] Description 02/01/2025 2:15 PM EDT Office Visit [facility] [address] [place] [address] Munira Keen MD [address] [place] [address] 02/22/2025 1:00 PM EDT Office Visit [facility] Nephrology, Bone & Mineral Metabolism [address] [facility], [address] [place] [address] Lynda Spencer MD [address] [place] [address] 03/07/2025 1:40 PM EST Office Visit [facility] Endocrinology [address] [place] [address] Makayla Bahena, DIRECTOR OF PHYSICAL SECURITY [address] [place] [address] documented as of this encounter Procedures Procedure Name Priority Date/Time Associated Diagnosis Comments INTRAVITREAL INJECTION, PHARMACOLOGIC AGENT - OS - LEFT EYE Routine 10/26/2024 11:13 AM EDT 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 type 2 diabetes mellitus Vitreous hemorrhage of left eye ([facility]) OCT, RETINA - OU - BOTH EYES [...] MG/0.05ML Route: Intravitreal, Site: Left Eye [facility]: 15423-328-73, Lot: [id number], Expiration date: 11/19/2024 Post-op Post injection exam [...] documented as of this encounter Care Teams Winding Inspector Relationship Specialty Start Date End Date Dyllan Gil APRN [address] [place] [address] PCP - General 06/11/22 Lynda Spencer MD [facility] [address] [phone] Referring Physician Nephrology 06/09/22 documented as of this encounter
--- OUTSIDE RECORDS SUMMARY | 2024-11-08 12:20 | XMS_ITS | Encounter Summary ---
Author Organization [facility] Address [address] [place] [address] Care Team Providers Care Student Activities Director Name Role Phone Lynda Spencer MD Unavailable [phone] Dyllan Gil APRN Primary Care Provider [phone] Reason for Referral * Consultation (Routine) - Authorized Specialty Diagnoses / Procedures Referred By Bobo t Referred To Contact Diagnoses Type 2 diabetes mellitus with diabetic nephropathy, with long-term current use of insulin (CMS/HCC) Makayla Bahena APRN [address] [address] Phone: tel: fax: Referral ID Status Reason Start Date Expiration Date V isits Requested Visits Authorized [id number] Authorized 11/08/2024 05/10/2026 1 1 Reason for Visit * Reason Comments Diabetes Encounter Details Date Type Department Care Team (Late st Contact Info) Description 11/08/2024 12:20 PM EDT Office Visit [facility] Endocrinology [address] [place] [address] Makayla Bahena APRN [address] [facility] [address] [place] [address] Type 2 diabetes mellitus with hyperglycemia, unspecified whether custodial insulin use (CMS/HCC) (Primary Dx); Retinopathy; Neuropathy; Essential hypertension; Hyperlipidemia, unspecified hyperlipidemia type; CKD (chronic kidney disease) stage 4, GFR 15-29 ml/min ([facility]); Overweight; Medication refill Social History Tobacco Use Types Packs/Day Years Used Date Smoking Tobacco: Every Day Cigarettes 2 30 Started: 06/12/1992; Last attempted to quit: 06/12/2022 Passive Smoke Exposure: Past Smokeless Tobacco: [...] Sign Reading Time Taken Comments Blood Pressure 173/102 11/08/2024 12:43 PM EDT Pulse 74 11/08/2024 12:43 PM EDT Temperature - - Respiratory Rate - - Oxygen Saturation - - Inhaled Oxygen Concentration - - Weight 77 kg (169 lb 12.1 oz) 11/08/2024 12:08 P M EDT Height - - Body Mass Index 27.4 08/17/2024 3:22 PM EDT documented in this [...] encounter Miscellaneous Notes * Patient Instructions - Makayla Bahena APRN - 11/08/2024 12:20 PM EDT Melanie Healy [id number] 11/08/24 Insulin Correction Scale 1:50 One unit of Humalog/Novolog will lower your blood sugar 50 mg/dl. Blood Sugar Reading (mg/dl) Correction Insulin Dose 150-200 mg/dl 1 unit 201-250 2 units 251-300 3 units 301-350 4 units 351-400 5 units 401-450 6 units Above 450 7 units -Continue Lantus 20 units daily in PM plus can increase/titrate insulin dose by 2 units every 3 days until fasting blood sugar averages under 150 consistently -Take Humalog/Novolog sliding scale above as needed based on pre-meal blood glucose three times daily at mealtimes (ideally 4 hours apart) If your blood sugar stays above 250, please contact the Diabetes Team at [phone]. * Progress Notes - Makayla Bahena APRN - 11/08/2024 12:20 PM EDT Subjective Melanie Healy is a 49 y.o. female who presents for an follow up evaluation of Diabetes Mellitis Type 2. Patient was diagnosed age 17. History of Nephropathy/CKD4 (not active on transplant list), hypertension, hyperlipidemia, retinopathy, Neuropathy, gastric bypass Feb 2023 HPI -last visit Nov 2023 -A1C: reports 8.4% 11/07/24 per primary care provider (no record for review) -Last A1c: 7.9% June 2024 Current treatment includes insulin injections -Lantus 20 units in PM (on for last 6 weeks, started per primary care provider) -past medications: Victoza, premixed insulin, Ozempic- no SE- stopped with improved blood glucose control, Farxiga- ineffective/ CKD Known diabetic complications: nephropathy, retinopathy, and peripheral neuropathy Compliance at present is estimated to be good. -injecting insulin into the abdomen, rotates injection site, denies scar tissue noted at injection site, denies insulin leakage at injection site -denies missed doses Cardiovascular risk factors: diabetes mellitus, dyslipidemia, hypertension, and smoking/ tobacco exposure Is she on BRYANT inhibitor or angiotensin II receptor pablo? Yes- on BB (has not taken today), blood pressure elevated- asymptomatic, checks blood pressure at home and reports usually runs good Is she on a StatinYes Current diet: on average, 3 meals per day, snacking every 3-4 hours, fruits, vegetables, protein, no sugary drinks, trying to cut back on carbs Current exercise: walking less lately due to hot weather Home blood sugar records: checking 2x/day, no readings for review, reports morning blood glucose 98-112, PM blood glucose 170-190's, no hypoglycemia -Date of Last Eye Exam: October 2024, history proliferative diabetic retinopathy with macular edema- receives injections, history cataract surgery -Date of Last Foot Exam: history neuropathy, denies sores, history callus, sees podiatry regularly every 3 months -Labs: June 2024 -followed by cosmetic dentist -reports still trying to stop smoking -denies history pancreatitis, gastroparesis, thyroid cancer, MENS2, DKA, bladder cancer, amputations Melanie Healy has ketone strips: yes/no: No, no history DKA Melanie Healy has glucagon kit: yes/no: No, no hx severe low bg The following portions of the chart were reviewed this encounter and updated as appropriate: Tobacco Allergies Meds Problems Med Hx Surg Hx Fam Hx Review of Systems Constitutional: Positive for unexpected weight change. Weight gain HENT: Negative. Eyes: Positive for visual disturbance. Respiratory: Negative. Cardiovascular: Positive for leg swelling. Gastrointestinal: Negative. Endocrine: Negative for polydipsia and polyuria. See HPI Genitourinary: Negative. Musculoskeletal: Negative. Skin: Negative. Neurological: Neuropathy Psychiatric/Behavioral: Negative. Objective Physical Exam Vitals reviewed. Constitutional: Appearance: Normal appearance. HENT: Head: Normocephalic. Nose: Nose normal. Cardiovascular: Rate and Rhythm: Normal rate and regular rhythm. Heart sounds: Normal heart sounds. Pulmonary: Effort: Pulmonary effort is normal. Breath sounds: Wheezing present. Musculoskeletal: General: Normal range of motion. Cervical back: Normal range of motion. Skin: General: Skin is warm and dry. Neurological: Mental Status: She is alert and oriented to person, place, and time. Psychiatric: Mood and Affect: Mood normal. Behavior: Behavior normal. Thought Content: Thought content normal. Judgment: Judgment normal. Lab Review Glucose, Plasma (mg/dL) Date Value 07/11/2024 171 (H) 11/15/2023 210 (H) 10/21/2023 119 (H) 07/29/2022 54 (L) POCT Hemoglobin A1C Date Value 06/24/2023 6.3 03/24/2023 6.7 04/03/2022 7.4 % 03/11/2021 6.4 % 10/08/2020 7.9 % (A) 08/06/2020 11.1 Hemoglobin A1c (%) Date Value 07/11/2024 7.9 (H) 11/15/2023 5.80 (H) 06/26/2022 7.5 (H) CO2, Plasma (mmol/L) Date Value 07/11/2024 22 10/21/2023 18 (L) 07/29/2022 25 BUN, Plasma (mg/dL) Date Value 07/11/2024 39 (H) 11/15/2023 56 (H) 10/21/2023 36 (H) 07/29/2022 64 (H) Creatinine, Plasma (mg/dL) Date Value 07/11/2024 2.23 (H) 11/15/2023 3.14 (H) 10/21/2023 2.32 (H) 07/29/2022 3.71 (H) Assessment/Plan Diabetes Mellitis Type 2, is uncontrolled. Rx changes: continue Lantus 20 units daily plus increase/titrate insulin dose by 2 units every 3 days until fasting blood sugar averages under 150 consistently, start Novolog 1:50>150 SS -recommend hold off on GLP-1 at this time due to proliferative diabetic retinopathy, can consider use in the future if improvement noted and ophthalmology agreeable. Discussed due to kidney disease and retinopathy, insulin safest option at this time. -continue healthy diet and exercise in working towards continued weight loss -resume cgm, ordered -to call if hyperglycemia persists, can order mealtime insulin if indicated -follow up: 3 months #Hypertension -uncontrolled on ARB, BB, asymptomatic, 173/102 (has not taken BB yet today) -continue antihypertensives per Neph #Hyperlipidemia -lipid panel up to date October 2023 -continue statin per primary care provider -encouraged healthy diet, activity as tolerated #Neuropathy -continue daily foot checks, good blood glucose control -continue regular f./units with podiatry #CKD -continue good BG control to prevent worsening kidney function -followed by nephrology -on ARB #Retinopathy -continue good BG control to prevent progression -continue regular eye exams with Opthalmologic #Overweight -BMI 27.40 -The patient received dietary education because they have an above normal BMI., The patient received a feeding regime because they have an above normal BMI., The patient received exercise education because they have an above normal BMI., and Pharmacotherapy was ordered because the patient hasan above normal BMI. The following Diabetes education was reviewed: [x]SBGM to evaluate dose needs []Insulin coverage with carbohydrate intake []Site rotation [x] Exercise impact on glucose levels []Driving safety related to diabetes []Sick day management []Ketone testing []Over treatment of hypoglycemia [] Hypoglycemia management [x]Call-in line use []Insulin pump pros and cons []Sensor home use []Pump class offerings []Tania phenomena []Somogyi effect [] Alcohol related to diabetes []Benefits of written records [x]Pre-meal Bolusing []Daily foot care [x] Healthy diet and regular exercise []Long-term complications related to poor diabetes management [] Injection timing related to changes in activity/exercise I personally spent a total of minutes on this encounter. This time includes face to face with patient, counseling and discussion and/or coordination of care. Electronically signed by: Makayla Bahena APRN [facility] ENDOCRINOLOGY [address] [place] [address]. [address] [place]. [address] PHONE [phone] FAX: [phone] documented in this encounter Plan of Treatment Upcoming Encounters Date Type Department Care Team (Late st Contact Info) Description 02/01/2025 2:15 PM EDT Office Visit [facility] [address] [place] [address] Munira Keen MD [address] [place] [address] 02/22/2025 1:00 PM EDT Office Visit [facility] Nephrology, Bone [facility] Mineral Metabolism [address] [facility], [address] [place] [address] Lynda Spencer MD [address] [place] [address] 03/07/2025 1:40 PM EST Office Visit [facility] Endocrinology [address] [place] [address] Makayla Bahena APRN [address] [place] [address] Scheduled Referrals Name Type Priority Associated Diagnoses Orde r Schedule Follow Up [facility] Outpatient Referral Routine Type 2 diabetes mellitus with hyperglycemia, unspecified whether terminal computer operator insulin use ([facility]) Expected: 02/08/2025, Expires: 05/12/2026 documented as of this encounter Visit Diagnoses Diagnosis Type 2 diabetes mellitus with hyperglycemia, unspecified whether terminal computer operator insulin use (CMS/HCC)- Primary Retinopathy Unspecified background retinopathy Neuropathy Mononeuritis of unspecified site Essential hypertension Unspecified essential hypertension Hyperlipidemia, unspecified hyperlipidemia type CKD (chronic kidney disease) stage 4, GFR 15-29 ml/min (CMS/HCC) Chronic kidney disease, Stage IV (severe) Overweight Medication refill Issue of repeat prescriptions documented in this encounter Additional Health Concerns Assessment Noted Time A fall risk assessment has been complete d for the patient 10/26/2024 10:01 AM EDT A Body Mass Index follow-up plan has been documented for the patient 11/08/2024 1:10 PM EDT documented as of this encounter Care Teams Student Activities Director Relationship Specialty Start Date End Date Dyllan Gil APRN [address] [place] [address] PCP - General 06/11/22 Lynda Spencer MD [address] [place] [address] [phone] (work) Referring Physician Nephrology 06/09/22 documented as of this encounter
--- OUTSIDE RECORDS SUMMARY | 2024-11-16 13:20 | XMS_ITS | Encounter Summary ---
Author Organization [facility] Address [address] [place] [address] Care Team Providers Care Leader Tier Name Role Phone Lynda Spencer MD Unavailable [phone] Dyllan Gil APRN Primary Care Provider [phone] Reason for Referral * Consultation (Routine) - Authorized Specialty Diagnoses / Procedures Referred By Contac t Referred To Contact Diagnoses CKD (chronic kidney disease) stage 4, GFR 15-29 ml/min ([facility]) Lynda Spencer MD [address] [place] [address] Phone: tel: fax: Referral ID Status Reason Start Date Expiration Date V isits Requested Visits Authorized [id number] Authorized 11/16/2024 05/18/2026 1 1 Reason for Visit * Reason Comments Follow-up Encounter Details Date Type Department Care Team ([facility] st Contact Info) Description 11/16/2024 1:20 PM EDT Office Visit [facility] Nephrology, Bone & Mineral Metabolism [address] [place] [address] Lynda Spencer MD [address] [place] [address] CKD (chronic kidney disease) stage [...] today 155/84, per report was 125/85 at [employer] and is usually well controlled at home. [...] Description 02/01/2025 2:15 PM EDT Office Visit [facility] [address] [place] [address] Munira Keen MD [address] [address] 02/22/2025 1:00 PM EDT Office Visit [facility] Nephrology, Bone & Mineral Metabolism 135 [address] [facility], [address] [place] [address] Lynda Spencer MD [address] [place] [address] 03/07/2025 1:40 PM EST Office Visit [facility] Endocrinology [address] [place] [address] Makayla Bahena, LIGHT BULB REPLACER 2195 [facility] [address] [place] [address] Scheduled Orders Name Type Priority [...] GFR 15-29 ml/min ([facility])- Primary Chronic kidney disease, Stage IV (severe) documented in this encounter Additional Health Concerns Assessment Noted Time A fall risk assessment has been complete d for the patient 11/16/2024 1:21 PM EDT A Body Mass Index follow-up plan has been documented for the patient 11/17/2024 2:03 PM EDT documented as of this encounter Care Teams Leader Tier Relationship Specialty Start Date End Date Dyllan Gil APRN [address] [place] [address] PCP - General 06/11/22 Lynda Spencer MD [address] [phone] Referring Physician Nephrology 06/09/22 documented as of this encounter
--- NOTE | 2024-12-07 12:10 | XR_ITS ---
FINAL REPORT CLINICAL HISTORY: cough COMPARISON: 04/25/2024 FINDINGS: 2 views of the chest were obtained . The heart is normal in size. The mediastinum is within normal limits. The lungs are clear. There is no pneumothorax. Osseous structures are unremarkable. IMPRESSION: No acute cardiopulmonary process. Reviewed, Interpreted and Dictated by Mario Alberto Boykin MD Transcribed by Alexus Umana Authenticated and [facility]
--- OUTSIDE RECORDS SUMMARY | 2024-12-07 12:11 | XMS_ITS | Encounter Summary ---
Author Organization Healthcare Address [address] [place] [address] Care Team Providers Care Engineering Mathematician Name Role Phone Lynda Spencer MD Unavailable [phone] Dyllan Gil APRN Primary Care Provider [phone] Encounter Details Date Type Department Care Team [...] Description 02/01/2025 2:15 PM EDT Office Visit [facility] [address] [place] [address] Munira Keen MD [address] [place] [address] 02/22/2025 1:00 PM EDT Office Visit [facility] Nephrology, Bone & Mineral Metabolism [address], [address] [place] [address] Lynda Spencer MD [address] [place] [address] 03/07/2025 1:40 PM EST Office Visit [facility] Endocrinology [address] [place] [address] Makayla Bahena APRN 2195 [facility] 125 [place] [address] documented as of this encounter Visit Diagnoses Not on filedocumented in this encounter Additional Health Concerns Assessment Noted Time A fall risk assessment has been complete d for the patient 11/16/2024 1:21 PM EDT A Body Mass Index follow-up plan has been documented for the patient 11/17/2024 2:03 PM EDT documented as of this encounter Care Teams Engineering Mathematician Relationship Specialty Start Date End Date Dyllan Gil APRN [address] [place] [address] PCP - General 06/11/22 Lynda Spencer MD [address] [place] [address] Referring Physician Nephrology 06/09/22 documented as of this encounter
--- OUTSIDE RECORDS SUMMARY | 2024-12-07 12:11 | XMS_ITS | Encounter Summary ---
Author Organization [facility] Address [address] [place] [address] Care Team Providers Care Forestry Farm Laborer Name Role Phone Lynda Spencer MD Unavailable [phone] Dyllan Gil APRN Primary Care Provider [phone] Reason for Visit * Reason Comments Med Refill Encounter Details Date Type Department Care Team (Late st Contact Info) Description 03/25/2023 [facility] [address] [place] [address] Makayla Bahena APRN [address] [address] Social History Tobacco Use Types [...] Description 02/01/2025 2:15 PM EDT Office Visit [facility] [address] [place] [address] Munira Keen MD 110 [facility] 550 [place] [address] 02/22/2025 1:00 PM EDT Office Visit [facility] Nephrology, Bone & Mineral Metabolism [address] [facility], [address] [place] [address] Lynda Spencer MD 135 [address] [facility] [address] [place] [address] 03/07/2025 1:40 PM EST Office Visit [facility] [address] [place] [address] Makayla Bahena, APURVA [address] [place] [address] documented as of this encounter Visit Diagnoses Not on filedocumented in this encounter Additional Health Concerns Assessment Noted Time A fall risk assessment has been complete d for the patient 03/09/2023 4:01 PM EST A Body Mass Index follow-up plan has been documented for the patient 03/24/2023 1:29 PM EST documented as of this encounter Care Teams Forestry Farm Laborer Relationship Specialty Start Date End Date Dyllan Gil APRN [address] [place] [address] PCP - General 06/11/22 Lynda Spencer MD [address] [address] Referring Physician Nephrology 06/09/22 documented as of this encounter
--- OUTSIDE RECORDS SUMMARY | 2024-12-07 12:11 | XMS_ITS | Encounter Summary ---
Author Organization Healthcare Address [address] [place] [address] Care Team Providers Care Furniture Lumber Production Worker Name Role Phone Lynda Spencer MD Unavailable [phone] Dyllan Gil APRN Primary Care Provider [phone] Encounter Details Date Type Department Care Team (Late st Contact Info) Description 04/06/2024 Lab Requisition [facility] [address] [place] [address] Stacey Escamilla MD [address] [place] [address] Awaiting organ transplant status Social [...] Description 02/01/2025 2:15 PM EDT Office Visit [facility] [address] [place] [address] Munira Keen MD 110 [facility] 550 [place] [address] 02/22/2025 1:00 PM EDT Office Visit [facility] Nephrology, Bone & Mineral Metabolism [address], [address] [place] [address] Lynda Spencer MD [address] [place] [address] 03/07/2025 1:40 PM EST Office Visit [facility] Endocrinology [address] [place] [address] Makayla Bahena S, HIGH WORKER 2195 [facility] [address] [place] [address] documented as of this encounter [...] MD LAB BLOOD ORDERABLES Final Resul t [facility] [address] documented in this encounter Visit Diagnoses Diagnosis Awaiting organ transplant status documented in this encounter Additional Health Concerns Assessment Noted Time A fall risk assessment has been complete d for the patient 03/03/2024 3:00 PM EST A Body Mass Index follow-up plan has been documented for the patient 03/03/2024 4:28 PM EST documented as of this encounter Care Teams Furniture Lumber Production Worker Relationship Specialty Start Date End Date Dyllan Gil APRN [address] [place] [address] PCP - General 06/11/22 Lynda Spencer MD [address] [address] Referring Physician Nephrology 06/09/22 documented as of this encounter
--- OUTSIDE RECORDS SUMMARY | 2024-12-07 12:11 | XMS_ITS | Encounter Summary ---
Author Organization [facility] Address [address] [place] [address] Care Team Providers Care Sustain Engineer Name Role Phone Lynda Spencer MD Unavailable [phone] Dyllan Gil APRN Primary Care Provider [phone] Encounter Details Date Type Department Care Team (Late st Contact Info) Description 12/01/2024 Telephone [facility] Endocrinology [address] [place] [address] Makayla Bahena APRN 2195 [facility] 125 [place] [address] Social History Tobacco Use Types [...] * Telephone Encounter - Kami Perez - 12/05/2024 9:44 AM EDT Returned patient's phone call, no answer, left v/m * Telephone Encounter - Kami Perez - [...] Description 02/01/2025 2:15 PM EDT Office Visit [facility] [address] [place] [address] Munira Keen MD [address] [place] [address] 02/22/2025 1:00 PM EDT Office Visit [facility] Nephrology, Bone & Mineral Metabolism [address], [address] [place] [address] Lynda Spencer MD [address] [place] [address] 03/07/2025 1:40 PM EST Office Visit [facility] Endocrinology [address] [place] [address] Makayla Bahena PHOTOGRAPHIC SPECIALIST 2195 [facility] [address] [place] [address] documented as of this encounter Visit Diagnoses Not on filedocumented in this encounter Additional Health Concerns Assessment Noted Time A fall risk assessment has been complete d for the patient 11/16/2024 1:21 PM EDT A Body Mass Index follow-up plan has been documented for the patient 11/17/2024 2:03 PM EDT documented as of this encounter Care Teams Sustain Engineer Relationship Specialty Start Date End Date Dyllan Gil, PHOTOGRAPHIC SPECIALIST [address] [place] [address] PCP - General 06/11/22 Lynda Spencer MD [address] [place] [address] Referring Physician Nephrology 06/09/22 documented as of this encounter
--- OUTSIDE RECORDS SUMMARY | 2024-12-07 12:11 | XMS_ITS | Encounter Summary ---
Author Organization [facility] Address [address] [place] [address] Care Team Providers Care Sandwich Hand Name Role Phone Lynda Spencer MD Unavailable [phone] Dyllan Gil APRN Primary Care Provider [phone] Reason for Visit * Reason Comments Med Refill Encounter Details Date Type Department Care Team (Late st Contact Info) Description 09/16/2022 Refill [facility] Endocrinology [address] [place] [address] Makayla Bahena APRN [address] [address] Social History Tobacco Use Types [...] 30 day supply with 0 refill(s) to [facility] pharmacy. documented in this encounter Plan of Treatment Upcoming Encounters Date Type Department Care Team (Late st Contact Info) Description 02/01/2025 2:15 PM EDT Office Visit [facility] [address] [place] [address] Munira Keen MD 110 [facility] 550 [place] [address] 02/22/2025 1:00 PM EDT Office Visit [facility] Nephrology, Bone & Mineral Metabolism [address] [facility], [address] [place] [address] Lynda Spencer MD 135 [address] [facility] [address] [place] [address] 03/07/2025 1:40 PM EST Office Visit [facility] Endocrinology [address] [place] [address] Makayla Bahena APRN 2195 [facility] 125 [place] [address] documented as of this encounter Visit Diagnoses Not on filedocumented in this encounter Additional Health Concerns Assessment Noted Time A fall risk assessment has been complete d for the patient 06/26/2022 10:39 AM EST A Body Mass Index follow-up plan has been documented for the patient 08/28/2022 2:04 PM EDT documented as of this encounter Care Teams Sandwich Hand Relationship Specialty Start Date End Date Dyllan Gil APRN [address] [place] [address] PCP - General 06/11/22 Lynda Spencer MD [address] [place] [address] Referring Physician Nephrology 06/09/22 documented as of this encounter
--- OUTSIDE RECORDS SUMMARY | 2024-12-07 12:11 | XMS_ITS | Encounter Summary ---
Author Organization [facility] Address [address] [place] [address] Care Team Providers Care Station Installation Supervisor Name Role Phone Al Fischer MD Primary Care Provider [phone] Lynda Spencer MD Unavailable [phone] Dyllan Gil APRN Primary Care Provider [phone] Reason for Visit * Reason Comments Med Refill Encounter Details Date Type Department Care Team (Late st Contact Info) Description 08/21/2021 Refill [facility] Endocrinology [address] [place] [address] Makayla Bahena APRN 2195 [facility] 125 [place] [address] Social History Tobacco Use Types [...] Description 02/01/2025 2:15 PM EDT Office Visit [facility] [address] [place] [address] Munira Keen MD [address] [place] [address] 02/22/2025 1:00 PM EDT Office Visit [facility] Nephrology, Bone & Mineral Metabolism [address] [facility], [address] [place] [address] Lynda Spencer MD [address] [place] [address] 03/07/2025 1:40 PM EST [facility] Endocr[facility]ology [address] [place] [address] Makayla Bahena APRN 2195 [facility] 125 [place] [address] documented as of this encounter Visit Diagnoses Not on filedocumented in this encounter Additional Health Concerns Assessment Noted Time A fall risk assessment has been complete d for the patient 01/31/2021 2:02 PM EDT documented as of this encounter Care Teams Station Installation Supervisor Relationship Specialty Start Date End Date Al Fischer MD [address] [place] [address] PCP - General 09/07/20 06/10/22 Dyllan Gil, VP PRODUCT MARKETING [address] [place] [address] PCP - General 06/11/22 Lynda Spencer MD [address] [place] [address] Referring Physician Nephrology 06/09/22 documented as of this encounter
--- OUTSIDE RECORDS SUMMARY | 2024-12-07 12:11 | XMS_ITS | Encounter Summary ---
Author Organization Healthcare Address [address] [place] [address] Care Team Providers Care Eyedotter Name Role Phone Lynda Spencer MD Unavailable [phone] Dyllan Gil APRN Primary Care Provider [phone] Encounter Details Date Type Department Care Team [...] Description 02/01/2025 2:15 PM EDT Office Visit [facility] [address] [place] [address] Munira Keen MD [address] [place] [address] 02/22/2025 1:00 PM EDT Office Visit [facility] Nephrology, Bone & Mineral Metabolism [address], [address] [place] [address] Lynda Spencer MD [address] [place] [address] 03/07/2025 1:40 PM EST Office Visit [facility] Endocrinology [address] [place] [address] Makayla Bahena APRN 2195 [facility] 125 [place] [address] documented as of this encounter Visit Diagnoses Not on filedocumented in this encounter Additional Health Concerns Assessment Noted Time A fall risk assessment has been complete d for the patient 10/26/2024 10:01 AM EDT A Body Mass Index follow-up plan has been documented for the patient 11/08/2024 1:10 PM EDT documented as of this encounter Care Teams Eyedotter Relationship Specialty Start Date End Date Dyllan Gil APRN [address] [place] [address] PCP - General 06/11/22 Lynda Spencer MD [address] [place] [address] Referring Physician Nephrology 06/09/22 documented as of this encounter
--- OUTSIDE RECORDS SUMMARY | 2024-12-07 12:11 | XMS_ITS | Encounter Summary ---
Author Organization Healthcare Address [address] [place] [id number] Care Team Providers Care Safety Lead Name Role Phone Lynda Spencer MD Unavailable [phone] Dyllan Gil APRN Primary Care Provider [phone] Encounter Details Date Type Department Care Team (Late st Contact Info) Description 11/16/2024 Telephone [facility] [address] [facility] [address] [place] [address] Nikki Ross, RN HOSPITAL KIDNEY [id number] [address] [place] [address] [id number] Social History Tobacco Use Types Packs/Day Years [...] Miscellaneous Notes * Telephone Encounter - Nikki Rsos RN - 11/16/2024 2:15 PM EDT Outgoing call to pt, discussed most recent GFR is 28, which is too high to be listed active. Pt said she completed mammogram in June and has followed up with her aircraft hydraulic equipment mechanic. Pt has started Chantrix and is working on stopping smoking. All questions answered to stated satisfaction. documented in this encounter Plan of Treatment Upcoming Encounters Date Type Department Care Team (Late st Contact Info) Description 02/01/2025 2:15 PM EDT Office Visit [facility] [address] [place] [address] Munira Keen MD [address] [facility] [address] [place] [address] 02/22/2025 1:00 PM EDT Office Visit [facility] Nephrology, Bone & Mineral Metabolism [address] [facility], [address] [place] [address] Lynda Spencer MD [address] [facility] [address] [place] [address] 03/07/2025 1:40 PM EST Office Visit [facility] Endocrinology [address] [place] [address] Makayla Bahena, CNC OPERATOR PROGRAMMER 219 [facility] [address] [place] [address] documented as of this encounter Visit Diagnoses Not on filedocumented in this encounter Additional Health Concerns Assessment Noted Time A fall risk assessment has been complete d for the patient 11/16/2024 1:21 PM EDT A Body Mass Index follow-up plan has been documented for the patient 11/17/2024 2:03 PM EDT documented as of this encounter Care Teams Safety Lead Relationship Specialty Start Date End Date Dyllan Gil APRN [address] [place] [address] PCP - General 06/11/22 Lynda Spencer MD [address] [place] [phone] Referring Physician Nephrology 06/09/22 documented as of this encounter
--- OUTSIDE RECORDS SUMMARY | 2024-12-07 12:11 | XMS_ITS | Encounter Summary ---
Author Organization Healthcare Address [address] [place] [address] Care Team Providers Care Electrical Instrument Technician Name Role Phone Lynda Spencer MD Unavailable Dyllan Gil APRN Primary Care Provider [phone] Encounter Details Date Type Department Care Team (Late st Contact Info) Description 03/08/2024 Lab Requisition [facility] [address] [place] [address] Stacey Escamilla MD [address] [place] [address] Awaiting organ transplant status Social [...] Description 02/01/2025 2:15 PM EDT Office Visit [facility] [address] [place] [address] Munira Keen MD 110 [facility] 550 [place] [address] 02/22/2025 1:00 PM EDT Office Visit [facility] Nephrology, Bone & Mineral Metabolism [address] [place] [address] Lynda Spencer MD [address] [place] [address] 03/07/2025 1:40 PM EST Office Visit [facility] Endocrinology [address] [place] [address] Makayla Bahena S, FREIGHT LOADING SUPERVISOR 2195 [facility] [address] [place] [address] documented as of this encounter [...] MD LAB BLOOD ORDERABLES Final Resul t [facility] [address] documented in this encounter Visit Diagnoses Diagnosis Awaiting organ transplant status documented in this encounter Additional Health Concerns Assessment Noted Time A fall risk assessment has been complete d for the patient 03/03/2024 3:00 PM EST A Body Mass Index follow-up plan has been documented for the patient 03/03/2024 4:28 PM EST documented as of this encounter Care Teams Electrical Instrument Technician Relationship Specialty Start Date End Date Dyllan Gil APRN [address] [place] [address] PCP - General 06/11/22 Lynda Spencer MD [address] [address] Referring Physician Nephrology 06/09/22 documented as of this encounter
--- OUTSIDE RECORDS SUMMARY | 2024-12-07 12:11 | XMS_ITS | Encounter Summary ---
Author Organization Healthcare Address [address] [place] [address] Care Team Providers Care Grain Drier Operator Name Role Phone Lynda Spencer MD Unavailable Dyllan Gil APRN Primary Care Provider [phone] Encounter Details Date Type Department Care Team (Late st Contact Info) Description 11/04/2023 Lab Requisition [facility] [address] [place] [address] Stacey Escamilla MD [address] [place] [address] Awaiting organ transplant status Social [...] Description 02/01/2025 2:15 PM EDT Office Visit [facility] [address] [place] [address] Munira Keen MD 110 [facility] 550 [place] [address] 02/22/2025 1:00 PM EDT Office Visit [facility] Nephrology, Bone & Mineral Metabolism [address] [place] [address] Lynda Spencer MD [address] [place] [address] 03/07/2025 1:40 PM EST Office Visit [facility] Endocrinology [address] [place] [address] Makayla Bahena S, PRIZE JACKER 2195 [facility] [address] [place] [address] documented as of this encounter [...] MD LAB BLOOD ORDERABLES Final Resul t [facility] [address] documented in this encounter Visit Diagnoses Diagnosis Awaiting organ transplant status documented in this encounter Additional Health Concerns Assessment Noted Time A fall risk assessment has been complete d for the patient 10/15/2023 3:13 PM EDT A Body Mass Index follow-up plan has been documented for the patient 09/07/2023 4:29 PM EDT documented as of this encounter Care Teams Grain Drier Operator Relationship Specialty Start Date End Date Dlylan Gil APRN [address] [place] [address] PCP - General 06/11/22 Lynda Spencer MD [facility] E [address] [address] Referring Physician Nephrology 06/09/22 documented as of this encounter
--- OUTSIDE RECORDS SUMMARY | 2024-12-07 12:11 | XMS_ITS | Encounter Summary ---
Author Organization Healthcare Address [address] [place] [address] Care Team Providers Care Electricians Top Helper Name Role Phone Lynda Spencer MD Unavailable Dyllan Gil APRN Primary Care Provider [phone] Encounter Details Date Type Department Care Team (Late st Contact Info) Description 01/05/2024 Lab Requisition [facility] [address] [place] [address] Stacey Escamilla MD [address] [place] [address] Awaiting organ transplant status Social [...] Description 02/01/2025 2:15 PM EDT Office Visit [facility] [address] [place] [address] Munira Keen MD 110 [facility] 550 [place] [address] 02/22/2025 1:00 PM EDT Office Visit [facility] Nephrology, Bone & Mineral Metabolism [address] [place] [address] Lynda Spencer MD [address] [place] [address] 03/07/2025 1:40 PM EST Office Visit [facility] Endocrinology [address] [place] [address] Makayla Bahena S, PAINTER ASSISTANT [address] [facility] [address] [place] [address] documented as of this encounter [...] Final Resul t [facility] [address] documented in this encounter Visit Diagnoses Diagnosis Awaiting organ transplant status documented in this encounter Additional Health Concerns Assessment Noted Time A fall risk assessment has been complete d for the patient 10/15/2023 3:13 PM EDT A Body Mass Index follow-up plan has been documented for the patient 12/23/2023 2:37 PM EDT documented as of this encounter Care Teams Electricians Top Helper Relationship Specialty Start Date End Date Dyllan Gil APRN [address] [place] [address] PCP - General 06/11/22 Lynda Spencer MD [facility] E [address] [address] Referring Physician Nephrology 06/09/22 documented as of this encounter
--- OUTSIDE RECORDS SUMMARY | 2024-12-07 12:11 | XMS_ITS | Encounter Summary ---
Author Organization Healthcare Address [address] [place] [address] Care Team Providers Care Rawhide Bone Roller Name Role Phone Lynda Spencer MD Unavailable [phone] Dyllan Gil APRN Primary Care Provider [phone] Encounter Details Date Type Department Care Team (Late st Contact Info) Description 12/07/2023 Lab Requisition [facility] [address] [place] [address] Andrea Pierre MD [address] [place] [address] Awaiting organ transplant status Social [...] Description 02/01/2025 2:15 PM EDT Office Visit [facility] [address] [place] [address] Munira Keen MD 110 [facility] 550 [place] [address] 02/22/2025 1:00 PM EDT Office Visit [facility] Nephrology, Bone & Mineral Metabolism [address] [facility], [address] [place] [address] Lynda Spencer MD [address] [place] [address] 03/07/2025 1:40 PM EST Office Visit [facility] Endocrinology [address] [place] [address] Makayla Bahena S, PROJECT MANAGER ENTERTAINMENT AND MEDIA 2[address] [facility] [address] [place] [address] documented as of this encounter [...] MD LAB BLOOD ORDERABLES Final Res ult [facility] [address] documented in this encounter Visit Diagnoses Diagnosis Awaiting organ transplant status documented in this encounter Additional Health Concerns Assessment Noted Time A fall risk assessment has been complete d for the patient 10/15/2023 3:13 PM EDT A Body Mass Index follow-up plan has been documented for the patient 11/27/2023 10:13 AM EDT documented as of this encounter Care Teams Rawhide Bone Roller Relationship Specialty Start Date End Date Dyllan Gil APRN [address] [place] [address] PCP - General 06/11/22 Lynda Spencer MD [address] [place] [address] Referring Physician Nephrology 06/09/22 documented as of this encounter
--- OUTSIDE RECORDS SUMMARY | 2024-12-07 12:11 | XMS_ITS ---
Author Organization [facility] Address [address] [place] [address] Care Team Providers Care Plant Equipment Engineer Name Role Phone Lynda Spencer MD Unavailable [phone] Dyllan Gil APRN Primary Care Provider [phone] Transplant Episode Kidney Candidate [facility] ([place] [place] Center waitlisted on 12/24/2022 Marked as Inactive on 03/31/2024 Reason: Temporarily too Sick Kidney CoordinatorNikki Ross RN Fax: N/A Email: N/A Scores Score Value Updated Exceptions/Reas ons CPRA 29 02/02/2024 EPTS (Calc) 32 12/07/2024 [place] Organ Diagnosis Organ Primary Contributory Kidney Diabetes Mellitus - Type II Hype rtensive Nephrosclerosis Care Team Name Role Phone Fax Email Nikki Ross RN Kidney Coordinator [phone] N/A N/A Dyllan Gil APRN Primary Care Provider [phone] N/A Christine Rosado Production Stage Manager [phone] N/A N/A Lynda Spencer MD Referring Physician [phone] N/A Events Pre-Transplant Referred: 06/09/2022 Evaluation began: 07/04/2022 Committee: 07/02/2022 Center waitlisted: 12/24/2022
--- OUTSIDE RECORDS SUMMARY | 2024-12-07 12:11 | XMS_ITS | Encounter Summary ---
Author Organization Healthcare Address [address] [place] [address] Care Team Providers Care Caterer'S Aide Name Role Phone Lynda Spencer MD Unavailable [phone] Dyllan Gil APRN Primary Care Provider [phone] Encounter Details Date Type Department Care Team (Late st Contact Info) Description 10/24/2024 Telephone [facility] Plastic & Reconstructive Surgery [address] [place] [address] Derick Horta Social History Tobacco Use [...] Description 02/01/2025 2:15 PM EDT Office Visit [facility] [address] [place] [address] Munira Keen MD 110 [facility] [address] [place] [address] 02/22/2025 1:00 PM EDT Office Visit [facility] Nephrology, Bone & Mineral Metabolism [address] [facility], [address] [place] [address] Lynda Spencer MD [address] [facility] [address] [place] [address] 03/07/2025 1:40 PM EST Office Visit [facility] Endocrinology [address] [place] [address] Makayla Bahena, APURVA 2195 [facility] [address] [place] [address] documented as of this encounter Visit Diagnoses Not on filedocumented in this encounter Additional Health Concerns Assessment Noted Time A fall risk assessment has been complete d for the patient 08/24/2024 1:00 PM EDT A Body Mass Index follow-up plan has been documented for the patient 08/24/2024 2:24 PM EDT documented as of this encounter Care Teams Caterer'S Aide Relationship Specialty Start Date End Date Dyllan Gil APRN [address] [place] [address] PCP - General 06/11/22 Lynda Spencer MD [address] [address] Referring Physician Nephrology 06/09/22 documented as of this encounter
--- OUTSIDE RECORDS SUMMARY | 2024-12-07 12:11 | XMS_ITS | Encounter Summary ---
Author Organization Healthcare Address [address] [place] [id number] Care Team Providers Care Coat Hanger Shaper Machine Operator Name Role Phone Lynda Spencer MD Unavailable [phone] Dyllan Gil APRN Primary Care Provider [phone] Encounter Details Date Type Department Care Team (Late st Contact Info) Description 11/15/2024 Telephone [facility] [address] [facility] [address] [place] [address] Nikki Ross, RN HOSPITAL KIDNEY [id number] [address] [place] [phone] Social History Tobacco Use Types Packs/Day Years [...] Description 02/01/2025 2:15 PM EDT Office Visit [facility] [address] [place] [address] Munira Keen MD 110 [facility] 550 [place] [address] 02/22/2025 1:00 PM EDT Office Visit [facility] Nephrology, Bone & Mineral Metabolism [address] [facility], [address] [place] [address] Lynda Spencer MD [address] [place] [address] 03/07/2025 1:40 PM EST Office Visit [facility] [address] [place] [address] Makayla Bahena, SPEECH AND LANGUAGE TUTOR 219 [facility] [address] [place] [address] documented as of this encounter Visit Diagnoses Not on filedocumented in this encounter Additional Health Concerns Assessment Noted Time A fall risk assessment has been complete d for the patient 10/26/2024 10:01 AM EDT A Body Mass Index follow-up plan has been documented for the patient 11/08/2024 1:10 PM EDT documented as of this encounter Care Teams Coat Hanger Shaper Machine Operator Relationship Specialty Start Date End Date Dyllan Gil APRN [address] [place] [id number] PCP - General 06/11/22 Lynda Spencer MD [address] [address] Referring Physician Nephrology 06/09/22 documented as of this encounter
--- OUTSIDE RECORDS SUMMARY | 2024-12-07 12:11 | XMS_ITS | Encounter Summary ---
Author Organization [facility] Address [address] [place] [address] Care Team Providers Care Flight Manager Name Role Phone Lynda Spencer MD Unavailable [phone] Dyllan Gil APRN Primary Care Provider [phone] Reason for Visit * Reason Comments Med Refill Encounter Details Date Type Department Care Team (Late st Contact Info) Description 10/13/2022 [facility]ill [facility] End[facility]ology [address] [place] [address] Makayla Bahena APRN [address] [address] Social History Tobacco Use Types [...] for 30 day supply with 2 refill(s) [facility] pharmacy. documented in this encounter Plan of Treatment Upcoming Encounters Date Type Department Care Team (Late st Contact Info) Description 02/01/2025 2:15 PM EDT Office Visit [facility] [address] [place] [address] Munira Keen MD 110 [facility] 550 [place] [address] 02/22/2025 1:00 PM EDT [facility] Visit [facility] Nephrology, Bone & Mineral Metabolism [address] [facility], [address] [place] [address] Lynda Spencer MD [address] [facility] [address] [place] [address] 03/07/2025 1:40 PM EST Office Visit [facility] Endocrinology [address] [place] [address] Makayla Bahena, APURVA [address] [place] [address] documented as of this encounter Visit Diagnoses Not on filedocumented in this encounter Additional Health Concerns Assessment Noted Time A fall risk assessment has been complete d for the patient 10/09/2022 12:42 PM EDT A Body Mass Index follow-up plan has been documented for the patient 08/28/2022 2:04 PM EDT documented as of this encounter Care Teams Flight Manager Relationship Specialty Start Date End Date Dyllan Gil APRN [address] [place] [address] PCP - General 06/11/22 Lynda Spencer MD [address] [address] Referring Physician Nephrology 06/09/22 documented as of this encounter
--- OUTSIDE RECORDS SUMMARY | 2024-12-07 12:11 | XMS_ITS | Encounter Summary ---
Author Organization Healthcare Address [address] [place] [address] Care Team Providers Care Mail Messenger Contractor Name Role Phone Lynda Spencer MD Unavailable [phone] Dyllan Gil APRN Primary Care Provider [phone] Encounter Details Date Type Department Care Team (Late st Contact Info) Description 02/05/2024 Lab Requisition [facility] [address] [place] [address] Stacey Escamilla MD [address] [place] [address] Awaiting organ transplant status Social [...] Description 02/01/2025 2:15 PM EDT Office Visit [facility] [address] [place] [address] Munira Keen MD [address] [facility] [address] [place] [address] 02/22/2025 1:00 PM EDT Office [facility] Nephrology, Bone & Mineral Metabolism [address] [place] [address] Lynda Spencer MD [address] [place] [address] 03/07/2025 1:40 PM EST Office Visit [facility] Endocrinology [address] [place] [address] Makayla Bahena S, TELEHEALTH NURSE EDUCATOR [address] [facility] [address] [place] [address] documented as of this encounter [...] MD LAB BLOOD ORDERABLES Final Resul t [facility] [address] documented in this encounter Visit Diagnoses Diagnosis Awaiting organ transplant status documented in this encounter Additional Health Concerns Assessment Noted Time A fall risk assessment has been complete d for the patient 10/15/2023 3:13 PM EDT A Body Mass Index follow-up plan has been documented for the patient 12/23/2023 2:37 PM EDT documented as of this encounter Care Teams Mail Messenger Contractor Relationship Specialty Start Date End Date Dyllan Gil APRN [address] [place] [address] PCP - General 06/11/22 Lynda Spencer MD [facility] [address] [address] Referring Physician Nephrology 06/09/22 documented as of this encounter
--- OUTSIDE RECORDS SUMMARY | 2024-12-07 12:11 | XMS_ITS | Encounter Summary ---
Author Organization [facility] Address [address] [place] [address] Care Team Providers Care Boat Master Name Role Phone Lynda Spencer MD Unavailable [phone] Dyllan Gil APRN Primary Care Provider [phone] Encounter Details Date Type Department Care Team [...] Description 02/01/2025 2:15 PM EDT Office Visit [facility] [address] [place] [address] Munira Keen MD [address] [facility] [address] [place] [address] 02/22/2025 1:00 PM EDT Office Visit [facility] Nephrology, Bone & Mineral Metabolism [address] [facility], [address] [place] [address] Lynda Spencer MD [address] [place] [address] 03/07/2025 1:40 PM EST Office Visit [facility] Endocrinology [address] [place] [address] Makayla Bahena APRN 2195 [facility] 125 [place] [address] documented as of this encounter Visit Diagnoses Not on filedocumented in this encounter Additional Health Concerns Assessment Noted Time A fall risk assessment has been complete d for the patient 10/26/2024 10:01 AM EDT A Body Mass Index follow-up plan has been documented for the patient 10/26/2024 10:22 AM EDT documented as of this encounter Care Teams Boat Master Relationship Specialty Start Date End Date Dyllan Gil APRN [address] [place] [address] PCP - General 06/11/22 Lynda Spencer MD [address] [place] [address] Referring Physician Nephrology 06/09/22 documented as of this encounter
--- OUTSIDE RECORDS SUMMARY | 2024-12-07 12:12 | XMS_ITS | Clinical Summary ---
Author Organization [facility] Address [address] [place] [address] Care Team Providers Care Recreational Counselor Name Role Phone Lynda Spencer MD Unavailable [phone] Dyllan Gil APRN Primary Care Provider [phone] Allergies Active Allergy Reactions Criticality Noted Date [...] 08/25/19 24 Active Blood Glucose Monitoring Suppl ([employer] Verio Flex System) w/Device kitIndications:T ype 2 diabetes mellitus with hyperglycemia, unspecified whether detention insulin use ([facility]) Use to test blood glucose daily DX [...] 15-29 ml/min ([facility]) Take 1 tablet by mouth daily. 90 tablet 08/18/19 25 026 Active atorvastatin (Lipitor) 20 MG tablet TAKE ONE TABLET BY MOUTH ONCE A DAY 90 tablet 08/31/19 25 Active Continuous Glucose Sensor (Dexcom G7 Sensor) misc 1 each every 10 days. 9 each 11/09/19 25 026 Active Continuous Glucose Bag Checker (Dexcom G7 Bag Checker) device 1 each daily. Use as directed [...] nephropathy, with long-term current use of insulin ([facility]) Use to check BG 2 times a day 60 each 03/24/20 23 Discontinu ed(Duplica te order) glucose blood (OneTouch Verio) test stripIndications :Type 2 diabetes mellitus with diabetic nephropathy, with long-term current use of insulin ([facility]) TEST BLOOD SUGAR 4 TIMES A DAY [...] Type Department Care Team Description 12/01/2024 Telephone [facility] Endocrinology [address] [place] [phone] Makayla Bahena APRN 11/16/2024 1:20 PM EDT Office Visit [facility] Nephrology, Bone & Mineral Metabolism [address] [facility], [address] [place] [address] Lynda Spencer MD CKD (chronic kidney disease) stage 4, GFR 15-29 ml/min ([facility]) (Primary Dx) 11/16/2024 Telephone [facility] Transplant Center [address] [place] [address] Nikki Ross RN 11/16/2024 Travel 11/15/2024 Telephone [facility] Transplant Center [address] [place] [address] Nikki Ross RN 11/08/2024 12:20 PM EDT Office Visit [facility] Endocrinology [address] [place] [phone] Makayla Bahena S, RAW STOCK DYEING MACHINE TENDER Type 2 diabetes mellitus with hyperglycemia, unspecified whether detention insulin use ([facility]) (Primary Dx); Retinopathy; Neuropathy; Essential hypertension; Hyperlipidemia, unspecified hyperlipidemia type; CKD (chronic kidney disease) stage 4, GFR 15-29 ml/min ([facility]); Overweight; Medication refill 11/08/2024 Travel 10/26/2024 9:45 AM EDT Office Visit [facility] [address] [place] [address] Munira Keen MD 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 type 2 diabetes mellitus (Primary Dx); Vitreous hemorrhage of left eye ([facility]) 10/26/2024 2:00 AM EDT Ancillary Procedure [facility] [address] [place] [address] 10/26/2024 Travel 10/24/2024 Telephone [facility] Plastic & Reconstructive Surgery [address] [place] [address] Derick Horta 10/11/2024 Telephone [facility] Plastic & Reconstructive Surgery [address] [place] [phone] Derick Horta 10/10/2024 Telephone [facility] Plastic & Reconstructive Surgery [address] [place] [address] Derick Horta 10/07/2024 Telephone [facility] Plastic & Reconstructive Surgery [address] [place] [address] Derick Horta from Last 3 [...] Description 02/01/2025 2:15 PM EDT Office Visit [facility] [address] [place] [address] Munira Keen MD [address] [place] [address] 02/22/2025 1:00 PM EDT Office Visit [facility] Nephrology, Bone & Mineral Metabolism [address] [facility], [address] [place] [address] Lynda Spencer MD [address] [facility] [address] [place] [address] 03/07/2025 1:40 PM EST Office Visit [facility] Endocrinology [address] [place] [address] Makayla Bahena, RAW STOCK DYEING MACHINE TENDER [address] [facility] [address] [place] [address] Health Maintenance Due Date Last [...] 2019 FIT 2019 FOBT 2019 Sigmoidoscopy 2019 [id number] Vaccine (2 - season) 2023 07/31/2020 UKY-Lung [...] 12:43 PM EDT End stage renal disease ([facility]) HIV 1/2 ANTIBODY/ANTIGEN SCREEN WITH REFLEX TO HIV I/II DIFFERENTIATION Routine 07/11/2024 12:43 PM EDT End stage renal disease ([facility]) HEMOGLOBIN A1C Routine 07/11/2024 12:43 PM EDT End stage renal disease ([facility]) MAMMOGRAPHY BREAST DIAGNOSTIC TOMOSYNTHESIS BILATERAL Routine 07/21/2022 [...] 1.25 MG/0.05ML Route: Intravitreal, Site: [facility]: 14326-839-59, Lot: [id number], Expiration date: 11/19/2024 Post-op Post injection exam [...] Reactive Non Reactive 07/11/2024 2:13 PM EDT [facility] Comment:Screening for HIV 1 & 2 antibodies, and P24 antigen is NONREACTIVE. No confirmatory testing is required. Blood Venous blood specimen / Unknown Venipuncture / Unknown 07/11/2024 12:43 PM EDT 07/11/2024 1:29 PM EDT Stacey Escamilla MD LAB BLOOD ORDERABLES Final Resul t Performing Organization Address City/[facility] [place] [address] * Hepatitis C Antibody (07/11/2024 12:43 PM EDT) Pathologist [facility] Hepatitis C Antibody Negative Negative 07/11/2024 2:11 PM EDT [facility] Blood Venous blood specimen / Unknown Venipuncture / Unknown 07/11/2024 12:43 PM EDT 07/11/2024 1:29 PM EDT us Stacey Escamilla MD LAB BLOOD ORDERABLES Final Resul t Performing Organization Address [facility] [place] [address] * (ABNORMAL) Hemoglobin A1c (07/11/2024 12:43 PM EDT) Pathologist [facility] Hemoglobin A1c 7.9(H) <5.7 % 07/11/2024 1:43 PM EDT [facility] Blood Venous blood specimen / Unknown Venipuncture / Unknown 07/11/2024 12:43 PM EDT 07/11/2024 1:22 PM EDT Narrative [facility] - 07/11/2024 1:43 PM EDT HA1C Interpretive Data: Diagnosis of Diabetes: Diabetic > or = 6.5% Pre-diabetic 5.7 to 6.4% Non-diabetic < or = 5.6% Glycemic Targets for Type I and Type II Diabetics: Non- Adults <7.0% Adults <6.0% Children and Adolescents <7.5% Source: [place] [employer]. Standards of medical care in diabetes,2017. Diabetes Care.2017:40 (suppl 1):S1-S135. HbA1c assay performed by an ion-exchange chromatography method that is certified traceable to the DCCT. Stacey Escamilla MD LAB BLOOD ORDERABLES Final Resul t [facility] [address] [place] [address] * Mammography Breast Diagnostic Tomosynthesis Bilateral (07/21/2022) Anatomical Region Laterality Modality Breast Bilateral Mammography us Historical Provider IMG BI PROCEDURES Final R esult * Cytology (03/01/2001 12:00 AM EST) 03/01/2001 03/02/2001 12: 20 PM EST Narrative [facility] - 03/09/2001 11:24 AM EST [facility] MR #: [id number] [facility] [address], [place] [address] 1975 (Age: 25) FW Collect Date: 03/01/2001 00:00 Receipt Date: 03/02/2001 12:20 Page 1 DEPARTMENT OF PATHOLOGY AND LABORATORY MEDICINE CYTOPATHOLOGY REPORT Email: [email or web address] ATTENDING MD/Practitioner: Ricky aCrdoso MD Service: CWO Location: [facility] OTHER MD(S): Chace Muhammad MD Reported: 03/09/2001 [...] results is suggested (please call Microbiology at [phone] for results). CLINICAL INFORMATION: Menstrual History: Date of Last Menstrual Period: {Not Provided} SPECIMEN DESCRIPTION: A: THIN PREP (CERVICAL/VAGINAL) THIN PREP PROCESS CELLULAR ENHANCEMENT ICD: V76.2 CERVIX, SPECIAL SCREENING FOR MALIGNANT NEOPLASM F: A; THIN SCRN 03145 SNOMED CODES: A; [id number] In cases where a pathologist has signed out the report, the service has been rendered in part by a resident. The signing pathologist has performed and is responsible for the reported pathologic evaluation. us Historical Provider LAB PATHOLOGY ORDERABLES Final Result [facility] from Last 3 Months or Most Recently Relevant to Health Maintenance Insurance [facility] MEDICAID [facility] MEDICAID Care Teams Recreational Counselor Relationship Specialty Start Date End Date Dyllan Gil APRN [address] [place] [address] K[place] Flores [address] PCP - General 06/11/22 Lynda Spencer MD [address] [address] Referring Physician Nephrology 06/09/22
--- OUTSIDE RECORDS SUMMARY | 2024-12-07 12:12 | XMS_ITS | Encounter Summary ---
Author Organization [facility] Address [address] [place] [address] Care Team Providers Care Crown Blocker Name Role Phone Lynda Spencer MD Unavailable [phone] Dyllan Gil APRN Primary Care Provider [phone] Encounter Details Date Type Department Care Team (Late st Contact Info) Description 10/11/2024 Telephone [facility] Plastic & Reconstructive Surgery [address] [place] [address] Derick Horta Social History Tobacco Use [...] Description 02/01/2025 2:15 PM EDT Office Visit [facility] [address] [place] [address] Munira Keen MD [address] [facility] [address] [place] [address] 02/22/2025 1:00 PM EDT Office Visit [facility] [employer] Nephrology, Bone & Mineral Metabolism [address] [facility], [address] [place] [address] Lynda Spencer MD [address] [facility] [address] [place] [address] 03/07/2025 1:40 PM EST Office Visit [facility] Endocrinology [address] [place] [address] Makayla Bahena, APURVA [address] [facility] [address] [place] [address] documented as of this encounter Visit Diagnoses Not on filedocumented in this encounter Additional Health Concerns Assessment Noted Time A fall risk assessment has been complete d for the patient 08/24/2024 1:00 PM EDT A Body Mass Index follow-up plan has been documented for the patient 08/24/2024 2:24 PM EDT documented as of this encounter Care Teams Crown Blocker Relationship Specialty Start Date End Date Dyllan Gil APRN [address] [place] [id number] PCP - General 06/11/22 Lynda Spencer MD [address] [address] Referring Physician Nephrology 06/09/22 documented as of this encounter
--- OUTSIDE RECORDS SUMMARY | 2024-12-07 12:12 | XMS_ITS | Encounter Summary ---
Author Organization [facility] Address [address] [place] [address] Care Team Providers Care Breaker Tender Name Role Phone Lynda Spencer MD Unavailable [phone] Dyllan Gil APRN Primary Care Provider [phone] Encounter Details Date Type Department Care Team (Late st Contact Info) Description 10/10/2024 Telephone [facility] Plastic & Reconstructive Surgery [address] [place] [address] Derick Horta Social History Tobacco Use [...] Description 02/01/2025 2:15 PM EDT Office Visit [facility] [address] [place] [address] Munira Keen MD [address] [facility] [address] [place] [address] 02/22/2025 1:00 PM EDT Office Visit [facility] Nephrology, Bone & Mineral Metabolism [address] [facility], [address] [place] [address] Lynda Spencer MD [address] [facility] [address] [place] [address] 03/07/2025 1:40 PM EST Office Visit [facility] Endocrinology [address] [place] [address] Makayla Bahena, APURVA [address] [facility] [address] [place] [address] documented as of this encounter Visit Diagnoses Not on filedocumented in this encounter Additional Health Concerns Assessment Noted Time A fall risk assessment has been complete d for the patient 08/24/2024 1:00 PM EDT A Body Mass Index follow-up plan has been documented for the patient 08/24/2024 2:24 PM EDT documented as of this encounter Care Teams Breaker Tender Relationship Specialty Start Date End Date Dyllan Gil APRN [address] [place] [address] PCP - General 06/11/22 Lynda Spencer MD [address] [address] Referring Physician Nephrology 06/09/22 documented as of this encounter
[2024-12-07 15:49] LABS: Coronavirus 19, PCR Not Detected (NotDetected); Influenza A, PCR Not Detected (NotDetected); Influenza B, PCR Not Detected (NotDetected)
== END 2024-12-07 23:59 | disposition home or self-care (01) ==
LOC: RAD 12:08
PROVIDERS: PCP Family Medicine; Visit Provider Student in an Organized Health Care Education/Training Program
DX: R05.9 Cough, unspecified (principal); R09.89 Other specified symptoms and signs involving the circulatory and respiratory systems; J06.9 Acute upper respiratory infection, unspecified
CPT/HCPCS: 71046; 87631

== ENCOUNTER 2025-01-11 12:47 | Day surgery (SDC) | payer MEDICAID, SELFPAY ==
--- NOTE | 2025-01-08 12:02 | EXP.HP ---
History of Present Illness *Admission Date: 01/11/25 *History of present illness: Mrs. Healy is a 49-year-old female who is here for diagnostic upper endoscopy secondary to dysphagia. The patient also has had chronic constipation for which she is taking MiraLAX and senna. She does have a history of gastric sleeve surgery and stage IV kidney disease. She has been having swallowing difficulty with pills getting stuck. She feels bloated and her abdomen feels heavy. She reports no rectal bleeding. She has had some gassiness but very little belching. The patient did have a colonoscopy with Dr. Jong Rasmussen in June 2024. She does state that she was scheduled for colonoscopy 3 times but never fully got cleaned out with the bowel preparation. According to Dr. Rasmussen note she was still not fully cleaned out. She did have some diminutive polyps and the biopsy report from his colonoscopy showed a sigmoid tubular adenoma and 2 hyperplastic polyps. She also had a colonoscopy by him and November 2022 and had 5 adenomatous colon polyps removed. The patient does get some intermittent vomiting and food regurgitation. Her last EGD was with Dr. Phil Mars where she had her gastric sleeve. He has not performed dilation. [facility] Disclaimer: The information contained in this section may have been updated after the patient was seen, as this information can be updated by other users. Medical History Peripheral edema Dysphagia Constipation SVT (supraventricular tachycardia) Chronic kidney disease History of back pain History of cataract Edema Renal disease Hydradenitis Bilateral carpal tunnel syndrome Bipolar II disorder GERD (gastroesophageal reflux disease) Lymphedema CAD (coronary artery disease) COPD (chronic obstructive pulmonary disease) Dyspnea Tobacco abuse HTN (hypertension) Diastolic dysfunction Subungual hematoma of great toe of left foot Candidiasis, intertrigo Subungual hematoma of fifth toe of left foot Back Pain Osteoarthritis Leg swelling Memory Loss Neck pain Vitamin D deficiency (~06/29/17) Hyperlipidemia (~06/29/17) Type 2 diabetes mellitus Surgical History H/O gastric sleeve History of ankle surgery RIGHT ANKLE SX - SCREWS History of incision and drainage History of bilateral carpal tunnel release History of section Family History Mother Diabetes Father Diabetes Lymphoma Social History (Updated 01/11/25 @ 12:59 by Karrie Rosen RN) Smoking Status: Current every day smoker years smoked: 35 smoking status stop date: 1 year ago quit status: considering quitting second hand exposure: No alcohol intake: never substance use type: denies use current occupational status: disabled Travel in the last 8 weeks?: None adopted: No caregiver/support person: No foster care: No household members: spouse housing: apartment lives independently: Yes marital status: number of children: 1 number of grandchildren: 0 education level: high school service: No jail: No current occupational exposures/hazards: No Hx Recent Travel: No sexually active: No caffeine: No physical activity: none phil/restoration: [employer] special phil needs: No working smoke detector in home: Yes fire extinguisher in home: No carbon monox detector in home: No firearms in home: No do you feel safe at home: Yes Have you lived/traveled outside US in past 30 days?: No Contact w/someone who lives/traveled outside US past 30 days?: No Exposure to someone with infectious disease in past 14 days?: No Do you have a fever (greater than 100.4 F or 38 C)?: No Have you tested positive for COVID-19?: No Exposed to someone with COVID-19 in past 14 days?: No Do you have a sore throat?: No Do you have a cough?: No Do you have any weakness?: No Are you experiencing any nausea/vomitting?: No Do you have any diarrhea?: No Are you experiencing any unusual bleeding?: No Do you have any muscle aches/pain?: No Do you have any abdominal pain?: No Are you experiencing loss of taste or smell?: No Other Medical History Have you received the Flu Vaccine for this season: No Have you received the Pneumonia Vaccine: Yes Review of Systems Review of Systems Review of systems (narrative): Negative *Cardiovascular Comments: Negative *Gastrointestinal Comments: Negative *Genitourinary Comments: Negative *Musculoskeletal Comments: Negative *Neurologic Comments: Negative Meds Home Medications and Allergies Home Medications ?Medication ?Instructions ?Recorded ?Confirmed ?Type pen needle, diabetic 31 gauge x #50 ea 04/09/21 12/13/24 History 07/10 (BD Ultra-Fine Mini Pen Needle) blood-glucose,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,cont 07/15/21 12/13/24 History omeprazole 20 mg capsule,delayed 20 mg PO DAILY 04/29/24 01/11/25 History release cholecalciferol (vitamin D3) 50 2,000 unit PO DAILY Supplement #30 07/11/24 01/11/25 Rx mcg (2,000 unit) capsule caps atorvastatin 20 mg tablet 20 mg PO DAILY #90 tabs 08/30/24 01/11/25 Rx lancets (Accu-Chek Softclix #100 ea 09/28/24 12/13/24 Rx Lancets) insulin glargine 100 unit/mL (3 10 unit (0.1 mL) SQ HS #3 mL 09/29/24 01/11/25 Rx mL) subcutaneous pen (Lantus Solostar U-100 Insulin) quetiapine 200 mg tablet See Rx Instructions .Route 11/02/24 01/11/25 Rx .COMPLEX #30 tabs blood sugar diagnostic (OneTouch #100 strips 11/03/24 12/13/24 Rx Verio test strips) Linzess 290 mcg capsule 290 mcg PO DAILY #30 caps 11/09/24 01/11/25 Rx (linaclotide) metoprolol succinate 25 mg 25 mg PO DAILY #90 tabs 11/14/24 01/11/25 Rx tablet,extended release 24 hr (Toprol XL) famotidine 20 mg tablet See Rx Instructions .Route 12/01/24 01/11/25 Rx .COMPLEX #90 tabs nystatin 100,000 unit/gram topical 1 applic topical BID #15 grams 12/01/24 01/11/25 Rx ointment albuterol sulfate 90 mcg/actuation See Rx Instructions .Route 12/07/24 01/11/25 Rx aerosol inhaler .COMPLEX #8.5 grams fluticasone propionate 45 2 inh inhalation BID #12 grams 12/13/24 01/11/25 Rx mcg-salmeterol 21 mcg/actuation HFA inhaler (Advair HFA) losartan 50 mg-hydrochlorothiazide 1 tab PO DAILY #30 tabs 12/13/24 01/11/25 Rx 12.5 mg tablet trazodone 50 mg tablet See Rx Instructions PO DAILY PRN 12/13/24 01/11/25 Rx sleep #60 tabs lamotrigine 200 mg tablet 200 mg PO BID MOOD #60 tabs 12/19/24 01/11/25 Rx New Prescriptions to Start Prescriptions: Allergies Allergy/AdvReac Type Severity Reaction Status Date / Time fish oil (FISH OIL) Allergy Mild Hives Verified 01/11/25 13:09 prednisolone Allergy Mild Other Verified 01/11/25 13:09 Exam *Routine HEENT Exam Head: Present normocephalic Eye: Present EOMI and PERRL ENT: Present mucous membranes moist *Routine Neck Exam Neck: Present supple *Routine Respiratory Exam Respiratory: Present CTA bilaterally *Routine Cardiovascular Exam Cardiovascular: Present RRR *Routine Abdominal Exam Abdominal: Present soft and normoactive bowel sounds; Absent tenderness *Routine Rectal Exam Rectal:: deferred *Routine Genitalia Exam Genitalia:: deferred *Routine Extremities Exam Extremities: Absent cyanosis, clubbing or edema *Routine Skin Exam Skin: Present warm; Absent rash *Routine Neurological Exam Neurological: Present alert and oriented X3 Assessment and Plan *Assessment and plan (1) Dysphagia: Status: Acute Category: Medical Code(s): R13.10 - Dysphagia, unspecified (2) Bloating: Status: Acute Category: Medical Code(s): R14.0 - Abdominal distension (gaseous) Plan A/P: 1. Dysphagia and bloating is the preprocedural diagnosis. The patient will be anesthetized/sedated using MAC sedation. The patient has been seen and examined. Cardiac and lung assessment prior to the examination is stable. Proceed with planned diagnostic EGD.
[2025-01-11 12:58] VITALS: BP 137/75; PULSE 84; RESP 16; TEMP 36.5; O2SAT 96; BMI 29.0
[2025-01-11] MEDS: DEXTROSE 5%-LACTATED RINGERS 1,000 ML 25 ML IV (13:15)
--- NOTE | 2025-01-11 13:31 | EXP.ANES.CKL ---
[facility] Disclaimer: The information contained in this section may have been updated after the patient was seen, as this information can be updated by other users. Medical History Peripheral edema Dysphagia Constipation SVT (supraventricular tachycardia) Chronic kidney disease History of back pain History of cataract Edema Renal disease Hydradenitis Bilateral carpal tunnel syndrome Bipolar II disorder GERD (gastroesophageal reflux disease) Lymphedema CAD (coronary artery disease) COPD (chronic obstructive pulmonary disease) Dyspnea Tobacco abuse HTN (hypertension) Diastolic dysfunction Subungual hematoma of great toe of left foot Candidiasis, intertrigo Subungual hematoma of fifth toe of left foot Back Pain Osteoarthritis Leg swelling Memory Loss Neck pain Vitamin D deficiency (~06/29/17) Hyperlipidemia (~06/29/17) Type 2 diabetes mellitus Surgical History H/O gastric sleeve History of ankle surgery RIGHT ANKLE SX - SCREWS History of incision and drainage History of bilateral carpal tunnel release History of section Family History Mother Diabetes Father Diabetes Lymphoma Social History (Updated 01/11/25 @ 12:59 by Karrie Rosen RN) Smoking Status: Current every day smoker years smoked: 35 smoking status stop date: 1 year ago quit status: considering quitting second hand exposure: No alcohol intake: never substance use type: denies use current occupational status: disabled Travel in the last 8 weeks?: None adopted: No caregiver/support person: No foster care: No household members: spouse housing: apartment lives independently: Yes marital status: number of children: 1 number of grandchildren: 0 education level: high school service: No group home: No current occupational exposures/hazards: No Hx Recent Travel: No sexually active: No caffeine: No physical activity: none 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 special phil needs: No working smoke detector in home: Yes fire extinguisher in home: No carbon monox detector in home: No firearms in home: No do you feel safe at home: Yes Have you lived/traveled outside US in past 30 days?: No Contact w/someone who lives/traveled outside US past 30 days?: No Exposure to someone with infectious disease in past 14 days?: No Do you have a fever (greater than 100.4 F or 38 C)?: No Have you tested positive for COVID-19?: No Exposed to someone with COVID-19 in past 14 days?: No Do you have a sore throat?: No Do you have a cough?: No Do you have any weakness?: No Are you experiencing any nausea/vomitting?: No Do you have any diarrhea?: No Are you experiencing any unusual bleeding?: No Do you have any muscle aches/pain?: No Do you have any abdominal pain?: No Are you experiencing loss of taste or smell?: No [facility] Anesthesia Checklist Patient Identification Patient Identification: Verbal (Name & ) Structural Data Admitted From: Home Planned Operative Procedure/s: egd Consent for Planned Operative Procedure(s) Verified: Yes NPO Status Verified Time NPO: 00:00 Additional verifications Anesthesia Reactions: No Hx Blood Transfusions: No Blood Transfusion Reaction: No Airway Assessment Mallampati Score:: Class II C-Spine Mobility Assessed: Yes TMJ Mobility Assessed: Yes Dentition: Good Dentition Neurological Assessment Level of Consciousness: Awake, Alert and Appropriate Anesthesia Plan Anesthesia Risk discussed: Yes Anesthesia Plan: Verified ASA Class: III Anesthesia Type: MAC
--- NOTE | 2025-01-11 13:57 | HMH.PROCNOTE ---
[facility] Procedure Note Date: 01/11/25 Time: 14:05 Procedure Note:: Upper Endoscopy Procedure Report: Esophagogastroduodenoscopy with cold biopsies and TTS balloon dilation Endoscopost: Flaco Stevens II, MD Referring Physician: Demarcus Peng MD Date of Procedure: January 11, 2025 Equipment: Olympus GIF-1100 standard upper endoscope Sedation: MAC sedation Indications: Mrs. Healy is a 49-year-old female who is here for diagnostic upper endoscopy secondary to dysphagia. The patient does get some intermittent heartburn, reflux, vomiting and food regurgitation. Her last EGD was with Dr. Phil Mars where she had her gastric sleeve. He has not performed dilation. The patient is on omeprazole 20 mg and famotidine. The patient also has had chronic constipation for which she is taking MiraLAX and senna. She does have a history of gastric sleeve surgery and stage IV kidney disease. She feels bloated and her abdomen feels heavy. She reports no rectal bleeding. She has had some gassiness but very little belching. The patient did have a colonoscopy with Dr. Jong Rasmussen in June 2024. She does state that she was scheduled for colonoscopy 3 times but never fully got cleaned out with the bowel preparation. According to Dr. Rasmussen note she was still not fully cleaned out. She did have some diminutive polyps and the biopsy report from his colonoscopy showed a sigmoid tubular adenoma and 2 hyperplastic polyps. She also had a colonoscopy by him and November 2022 and had 5 adenomatous colon polyps removed. Procedure: Prior to the procedure, a history and physical exam was performed, and patient's medications and allergies were reviewed. The risks, benefits and alternatives of the sedation and procedure were discussed with the patient. All questions were answered and informed consent was obtained. The patient was brought to the procedure room. Patient identification and proposed procedure were verified by the physician and the nurse. The patient was placed in a left lateral decubitus position and the scope was passed under direct vision. Throughout the procedure, the patient's blood pressure, pulse, and oxygen saturations were monitored continuously. The upper GI endoscopy was accomplished without difficulty. The patient tolerated the procedure well. Findings: The scope was passed directly into the upper esophagus and advanced to the third portion of the duodenum. A cold biopsy was taken from the second portion of the duodenum for the disaccharidase assay. The post bulbar duodenum, ampulla and duodenal bulb were normal with normal mucosa and conniventes. The scope was withdrawn through a normal duodenal bulb and pylorus into the stomach. There was bile reflux with mild linear reactive gastropathy of the antrum. There was a tubular funnel shaped stomach consistent with former gastric sleeve surgery. There was evidence of a very small sliding 2 cm hiatal hernia. Cold biopsies were taken from the antrum. The scope was then withdrawn into the esophagus. There was grade C (LA classification) reflux esophagitis with superficial erosions and superficial ulceration. There was no peptic stricture, ring, furrowing or Liberty. There was no obvious Workman's esophagus. The entire esophagus was dilated to 60 Ethiopian/20 mm with a TTS hydrostatic balloon. There were tertiary contractions and evidence of moderate esophageal dysmotility. The remainder of the esophageal mucosa was normal. Impression: 1. Grade C (LA classification) reflux esophagitis with small 2 cm hiatal hernia and moderate esophageal dysmotility 2. Gastric sleeve anatomy with antral linear reactive gastropathy and bile reflux Plan: I will follow-up the biopsies and discussed the findings with the patient and family. I would recommend that we switch to Voquezna because of her reflux esophagitis on PPI therapy. We will discuss treatment options.
[2025-01-11 14:07] VITALS: BP 116/69; PULSE 88; RESP 18; TEMP 36.1; O2SAT 93
[2025-01-11 14:17] VITALS: BP 127/76; PULSE 98; O2SAT 97
[2025-01-11 14:27] VITALS: BP 133/80; PULSE 92; O2SAT 96
[2025-01-11 14:37] VITALS: BP 137/66; PULSE 95; O2SAT 98
[2025-01-11 20:02] LABS: POC Glucose,Bedside 65 gm/dL (70-110)
[2025-01-16 16:59] LABS: Interpretation Notes (.); Lactase 45.48 (>/= 14.0); Maltase 293.54 (>/= 110.0); Palatinase 24.83 (>/= 8.5); Reference Notes (.); Sucrase 96.22 (>/= 25.0)
== END 2025-01-11 14:37 | disposition home or self-care (01) ==
PROVIDERS: PCP Family Medicine; Visit Provider Internal Medicine Gastroenterology
PROC: 0DJ08ZZ Inspection of Upper Intestinal Tract, Via Natural or Artificial Opening Endoscopic (ICD-10-PCS; CPT 43239; principal; 2025-01-11 13:30)
DX: K21.00 Gastro-esophageal reflux disease with esophagitis, without bleeding (principal); K44.9 Diaphragmatic hernia without obstruction or gangrene; K22.4 Dyskinesia of esophagus; K31.89 Other diseases of stomach and duodenum; F17.200 Nicotine dependence, unspecified, uncomplicated; J44.9 Chronic obstructive pulmonary disease, unspecified; K59.00 Constipation, unspecified; I12.9 Hypertensive chronic kidney disease with stage 1 through stage 4 chronic kidney disease, or unspecified chronic kidney disease; E11.22 Type 2 diabetes mellitus with diabetic chronic kidney disease; N18.4 Chronic kidney disease, stage 4 (severe); I25.10 Atherosclerotic heart disease of native coronary artery without angina pectoris; F31.9 Bipolar disorder, unspecified; Z79.4 Long term (current) use of insulin; Z88.8 Allergy status to other drugs, medicaments and biological substances; Z98.84 Bariatric surgery status
CPT/HCPCS: 43239; 43249; 82657; 82962; C1726; J2003; J2704; J7121

== ENCOUNTER 2025-02-16 15:46 | Outpatient (CLI) | payer MEDICAID, SELFPAY ==
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
--- OUTSIDE RECORDS SUMMARY | 2025-02-01 15:00 | XMS_ITS | Encounter Summary ---
Author Organization [facility] Address [address] [place] [address] Care Team Providers Care International Representative Name Role Phone Lynda Spencer MD Unavailable [phone] Dyllan Gil APRN Primary Care Provider [phone] Encounter Details Date Type Department Care Team (Late st Contact Info) Description 02/01/2025 3:00 PM EDT Ancillary Procedure [facility] [address] [place] [address] Social History Tobacco Use Types [...] Description 02/22/2025 1:00 PM EDT Office Visit [facility] Nephrology, Bone & Mineral Metabolism [address], [address] [place] [address] Lynda Spencer MD [address] [place] [address] 03/01/2025 10:00 AM EST Office Visit [facility] [address] [place] [address] Munira Keen MD [address] [place] [address] 03/07/2025 1:40 PM EST Office Visit [facility] Endocrinology [address] [place] [phone] Makayla Bahena, URGENT CARE [address] [facility] [address] [place] [address] documented as of this encounter [...] left eye (OS): trace non ci DME us Munira Keen MD OPHTH TOMOGRAPHY Final [...] documented as of this encounter Care Teams International Representative Relationship Specialty Start Date End Date Dyllan Gil APRN [address] [place] [id number] PCP - General 06/11/22 Lynda Spencer MD [address] [place] [phone] Referring Physician Nephrology 06/09/22 documented as of this encounter
--- OUTSIDE RECORDS SUMMARY | 2025-02-16 15:50 | XMS_ITS | Encounter Summary ---
Author Organization [facility] Address [address] [place] [address] Care Team Providers Care Parts Product Analyst Name Role Phone Lynda Spencer MD Unavailable [phone] Dyllan Gil APRN Primary Care Provider [phone] Reason for Visit * Reason Comments Med Refill Encounter Details Date Type Department Care Team (Late st Contact Info) Description 10/13/2022 [facility] [address] [place] [address] Makayla Bahena APRN [address] [address] Social History Tobacco Use Types [...] for 30 day supply with 2 refill(s) [facility] pharmacy. documented in this encounter Plan of Treatment Upcoming Encounters Date Type Department Care Team (Late st Contact Info) Description 02/22/2025 1:00 PM EDT Office Visit [facility] Nephrology, Bone & Mineral Metabolism [address] [facility] [place] [address] Lynda Spencer MD [address] [facility] [address] [place] [address] 03/01/2025 10:00 AM EST Office Visit [facility] [address] [place] [address] Munira Keen MD [address] [facility] [address] [place] [address] 03/07/2025 1:40 PM EST Office Visit [facility] Endocrinology [address] [place] [address] Makayla Bahena, APURVA [address] [place] [address] documented as of this encounter Visit Diagnoses Not on filedocumented in this encounter Additional Health Concerns Assessment Noted Time A fall risk assessment has been complete d for the patient 10/09/2022 12:42 PM EDT A Body Mass Index follow-up plan has been documented for the patient 08/28/2022 2:04 PM EDT documented as of this encounter Care Teams Parts Product Analyst Relationship Specialty Start Date End Date Dyllan Gil APRN [address] [place] [id number] PCP - General 06/11/22 Lynda Spencer MD [address] [address] Referring Physician Nephrology 06/09/22 documented as of this encounter
--- OUTSIDE RECORDS SUMMARY | 2025-02-16 15:50 | XMS_ITS | Encounter Summary ---
Author Organization [facility] Address [address] [place] [address] Care Team Providers Care Memorial Adviser Name Role Phone Al Fischer MD Primary Care Provider [phone] Lynda Spencer MD Unavailable [phone] Dyllan Gil APRN Primary Care Provider [phone] Reason for Visit * Reason Comments Med Refill Encounter Details Date Type Department Care Team (Late st Contact Info) Description 08/21/2021 Refill [facility] Endocrinology [address] [place] [address] Makayla Bahena APRN 2[address] [facility] 125 [place] [address] Social History Tobacco Use Types [...] Department Care Team (Late Contact Info) Description 02/22/2025 1:00 PM EDT Office Visit [facility] Nephrology, Bone & Mineral Metabolism [address] [facility] [place] [address] Lynda Spencer MD 135 [address] [facility] 401 [place] [address] 03/01/2025 10:00 AM EST Office Visit [facility] [address] [place] [address] Munira Keen MD 110 [facility] 550 [place] [address] 03/07/2025 1:40 PM EST Office Visit [facility] Endocrinology [address] [place] [address] Makayla Bahena, LIGHTING FIXTURE INSTALLER 2[address] [facility] 125 [place] [address] documented as of this encounter Visit Diagnoses Not on filedocumented in this encounter Additional Health Concerns Assessment Noted Time A fall risk assessment has been complete d for the patient 01/31/2021 2:02 PM EDT documented as of this encounter Care Teams Memorial Adviser Relationship Specialty Start Date End Date Al Fischer MD [address] [place] [address] PCP - General 09/07/20 06/10/22 Dyllan Gil, LIGHTING FIXTURE INSTALLER [address] [place] [address] PCP - General 06/11/22 Lynda Spencer MD 135 [address] [facility] 401 [place] [address] Referring Physician Nephrology 06/09/22 documented as of this encounter
--- OUTSIDE RECORDS SUMMARY | 2025-02-16 15:51 | XMS_ITS | Encounter Summary ---
Author Organization Healthcare Address [address] [place] [address] Care Team Providers Care Charge Lpn Name Role Phone Lynda Spencer MD Unavailable [phone] Dyllan Gil APRN Primary Care Provider [phone] Encounter Details Date Type Department Care Team (Late st Contact Info) Description 02/05/2024 Lab Requisition [facility] [address] [place] [address] Stacey Escamilla MD [address] [place] [address] Awaiting organ transplant status Social [...] Description 02/22/2025 1:00 PM EDT Office Visit [facility] Nephrology, Bone & Mineral Metabolism [address] [place] [address] Lynda Spencer MD [address] [place] [address] 03/01/2025 10:00 AM EST Office Visit [facility] [address] [place] [address] Munira Keen MD [address] [place] [address] 03/07/2025 1:40 PM EST Office Visit [facility] Endocrinology [address] [place] [address] Makayla Bahena, PAVING FOREMAN [address] [place] [address] documented as of this encounter [...] MD LAB BLOOD ORDERABLES Final Resul t [facility] [address] documented in this encounter Visit Diagnoses Diagnosis Awaiting organ transplant status documented in this encounter Additional Health Concerns Assessment Noted Time A fall risk assessment has been complete d for the patient 10/15/2023 3:13 PM EDT A Body Mass Index follow-up plan has been documented for the patient 12/23/2023 2:37 PM EDT documented as of this encounter Care Teams Charge Lpn Relationship Specialty Start Date End Date Dyllan Gil APRN [address] [place] [address] PCP - General 06/11/22 Lynda Spencer MD [facility] [address] [address] Referring Physician Nephrology 06/09/22 documented as of this encounter
--- OUTSIDE RECORDS SUMMARY | 2025-02-16 15:51 | XMS_ITS | Encounter Summary ---
Author Organization Healthcare Address [address] [place] [address] Care Team Providers Care Leno Sewer Name Role Phone Lynda Spencer MD Unavailable [phone] Dyllan Gil APRN Primary Care Provider [phone] Encounter Details Date Type Department Care Team (Late st Contact Info) Description 12/07/2023 Lab Requisition [facility] [address] [place] [address] Andrea Pierre MD [address] [place] [address] Awaiting organ transplant status Social [...] Description 02/22/2025 1:00 PM EDT Office Visit [facility] Nephrology, Bone & Mineral Metabolism [address] [place] [address] Lynda Spencer MD [address] [place] [address] 03/01/2025 10:00 AM EST Office Visit [facility] [address] [place] [address] Munira Keen MD [address] [facility] 550 [place] [address] 03/07/2025 1:40 PM EST Office Visit [facility] Endocrinology [address] [place] [address] Makayla Bahena, SEMICONDUCTOR WAFERS ETCHER STRIPPER [address] [facility] [address] [place] [address] documented as of this encounter [...] MD LAB BLOOD ORDERABLES Final Res ult [facility] [address] documented in this encounter Visit Diagnoses Diagnosis Awaiting organ transplant status documented in this encounter Additional Health Concerns Assessment Noted Time A fall risk assessment has been complete d for the patient 10/15/2023 3:13 PM EDT A Body Mass Index follow-up plan has been documented for the patient 11/27/2023 10:13 AM EDT documented as of this encounter Care Teams Leno Sewer Relationship Specialty Start Date End Date Dyllan Gil APRN [address] [place] [address] PCP - General 06/11/22 Lynda Spencer MD [address] [place] [address] Referring Physician Nephrology 06/09/22 documented as of this encounter
--- OUTSIDE RECORDS SUMMARY | 2025-02-16 15:51 | XMS_ITS | Encounter Summary ---
Author Organization Healthcare Address [address] [place] [address] Care Team Providers Care Oyster Shucker Name Role Phone Lynda Spencer MD Unavailable [phone] Dyllan Gil APRN Primary Care Provider [phone] Encounter Details Date Type Department Care Team (Late st Contact Info) Description 03/08/2024 Lab Requisition [facility] [address] [place] [address] Stacey Escamilla MD [address] [place] [address] Awaiting organ transplant status Social [...] Description 02/22/2025 1:00 PM EDT Office Visit [facility] Nephrology, Bone & Mineral Metabolism [address] [place] [address] Lynda Spencer MD [address] [place] [address] 03/01/2025 10:00 AM EST Office Visit [facility] [address] [place] [address] Munira Keen MD [address] [place] [address] 03/07/2025 1:40 PM EST Office Visit [facility] Endocrinology [address] [place] [address] Makayla Bahena, HEALTH RESEARCHER 2195 [facility] [address] [place] [address] documented as of this encounter [...] MD LAB BLOOD ORDERABLES Final Resul t [facility] [address] documented in this encounter Visit Diagnoses Diagnosis Awaiting organ transplant status documented in this encounter Additional Health Concerns Assessment Noted Time A fall risk assessment has been complete d for the patient 03/03/2024 3:00 PM EST A Body Mass Index follow-up plan has been documented for the patient 03/03/2024 4:28 PM EST documented as of this encounter Care Teams Oyster Shucker Relationship Specialty Start Date End Date Dyllan Gil APRN [address] [place] [address] PCP - General 06/11/22 Lynda Spencer MD [address] [address] Referring Physician Nephrology 06/09/22 documented as of this encounter
--- OUTSIDE RECORDS SUMMARY | 2025-02-16 15:51 | XMS_ITS | Encounter Summary ---
Author Organization Healthcare Address [address] [place] [address] Care Team Providers Care Mechanical Design Engineer Facilities Name Role Phone Lynda Spencer MD Unavailable Dyllan Gil APRN Primary Care Provider [phone] Encounter Details Date Type Department Care Team (Late st Contact Info) Description 11/04/2023 Lab Requisition [facility] [address] [place] [address] Stacey Escamilla MD [address] [place] [address] Awaiting organ transplant status Social [...] Description 02/22/2025 1:00 PM EDT Office Visit [facility] Nephrology, Bone & Mineral Metabolism [address] [place] [address] Lynda Spencer MD [address] [place] [address] 03/01/2025 10:00 AM EST Office Visit [facility] [address] [place] [address] Munira Keen MD [address] [place] [address] 03/07/2025 1:40 PM EST Office Visit [facility] Endocrinology [address] [place] [address] Makayla Bahena, GLOVE MAKER [address] [place] [address] [place] [address] documented as of this encounter [...] MD LAB BLOOD ORDERABLES Final Resul t [facility] [address] documented in this encounter Visit Diagnoses Diagnosis Awaiting organ transplant status documented in this encounter Additional Health Concerns Assessment Noted Time A fall risk assessment has been complete d for the patient 10/15/2023 3:13 PM EDT A Body Mass Index follow-up plan has been documented for the patient 09/07/2023 4:29 PM EDT documented as of this encounter Care Teams Mechanical Design Engineer Facilities Relationship Specialty Start Date End Date Dyllan Gil APRN [address] [place] [address] PCP - General 06/11/22 Lynda Spencer MD [address] [address] Referring Physician Nephrology 06/09/22 documented as of this encounter
--- OUTSIDE RECORDS SUMMARY | 2025-02-16 15:51 | XMS_ITS | Encounter Summary ---
Author Organization [facility] Address [address] [place] [address] Care Team Providers Care Panelbeater Name Role Phone Lynda Spencer MD Unavailable [phone] Dyllan Gil APRN Primary Care Provider [phone] Reason for Visit * Reason Comments Med Refill Encounter Details Date Type Department Care Team (Late st Contact Info) Description 09/16/2022 Refill [facility] Endocrinology [address] [place] [address] Makayla Bahena APRN [address] [address] Social History Tobacco Use Types [...] 30 day supply with 0 refill(s) to [facility] pharmacy. documented in this encounter Plan of Treatment Upcoming Encounters Date Type Department Care Team (Late st Contact Info) Description 02/22/2025 1:00 PM EDT Office [facility] Nephrology, Bone & Mineral Metabolism [address] [facility], [address] [place] [address] Lynda Spencer MD [address] [facility] [address] [place] [address] 03/01/2025 10:00 AM EST Office Visit [facility] [address] [place] [address] Munira Keen MD 110 [facility] [address] [place] [address] 03/07/2025 1:40 PM EST Office Visit [facility] Endocrinology [address] [place] [address] Makayla Bahena, SUPERVISOR PHOSPHATIC FERTILIZER [address] [place] [address] documented as of this encounter Visit Diagnoses Not on filedocumented in this encounter Additional Health Concerns Assessment Noted Time A fall risk assessment has been complete d for the patient 06/26/2022 10:39 AM EST A Body Mass Index follow-up plan has been documented for the patient 08/28/2022 2:04 PM EDT documented as of this encounter Care Teams Panelbeater Relationship Specialty Start Date End Date Dyllan Gil APRN [address] [place] [address] PCP - General 06/11/22 Lynda Spencer MD [address] [place] [address] Referring Physician Nephrology 06/09/22 documented as of this encounter
--- OUTSIDE RECORDS SUMMARY | 2025-02-16 15:51 | XMS_ITS | Encounter Summary ---
Author Organization Healthcare Address [address] [place] [address] Care Team Providers Care Regulatory Affairs Director Name Role Phone Lynda Spencer MD Unavailable Dyllan Gil APRN Primary Care Provider [phone] Encounter Details Date Type Department Care Team (Late st Contact Info) Description 04/06/2024 Lab Requisition [facility] [address] [place] [address] Stacey Escamilla MD [address] [place] [address] Awaiting organ transplant status Social [...] Description 02/22/2025 1:00 PM EDT Office Visit [facility] Nephrology, Bone & Mineral Metabolism [address] [place] [address] Lynda Spencer MD [address] [place] [address] 03/01/2025 10:00 AM EST Office Visit [facility] [address] [place] [address] Munira Keen MD [address] [place] [address] 03/07/2025 1:40 PM EST Office Visit [facility] Endocrinology [address] [place] [address] Makayla Bahena, JEWEL WAXER 2[address] [facility] [address] [place] [address] documented as of this encounter [...] MD LAB BLOOD ORDERABLES Final Resul t [facility] [address] documented in this encounter Visit Diagnoses Diagnosis Awaiting organ transplant status documented in this encounter Additional Health Concerns Assessment Noted Time A fall risk assessment has been complete d for the patient 03/03/2024 3:00 PM EST A Body Mass Index follow-up plan has been documented for the patient 03/03/2024 4:28 PM EST documented as of this encounter Care Teams Regulatory Affairs Director Relationship Specialty Start Date End Date Dyllan Gil APRN [address] [place] [address] PCP - General 06/11/22 Lynda Spencer MD [address] [address] Referring Physician Nephrology 06/09/22 documented as of this encounter
--- OUTSIDE RECORDS SUMMARY | 2025-02-16 15:51 | XMS_ITS | Encounter Summary ---
Author Organization Healthcare Address [address] [place] [address] Care Team Providers Care Customer Service Associate Name Role Phone Lynda Spencer MD Unavailable Dyllan Gil APRN Primary Care Provider [phone] Encounter Details Date Type Department Care Team (Late st Contact Info) Description 01/05/2024 Lab Requisition [facility] [address] [place] [address] Stacey Escamilla MD [address] [place] [address] Awaiting organ transplant status Social [...] Description 02/22/2025 1:00 PM EDT Office Visit [facility] Nephrology, Bone & Mineral Metabolism [address] [place] [address] Lynda Spencer MD [address] [place] [address] 03/01/2025 10:00 AM EST Office Visit [facility] [address] [place] [address] Munira Keen MD [address] [place] [address] 03/07/2025 1:40 PM EST Office Visit [facility] Endocrinology [address] [place] [address] Makayla Bahena, CANDLE MAKING SUPERVISOR [address] [place] [address] documented as of this encounter [...] MD LAB BLOOD ORDERABLES Final Resul t [facility] [address] documented in this encounter Visit Diagnoses Diagnosis Awaiting organ transplant status documented in this encounter Additional Health Concerns Assessment Noted Time A fall risk assessment has been complete d for the patient 10/15/2023 3:13 PM EDT A Body Mass Index follow-up plan has been documented for the patient 12/23/2023 2:37 PM EDT documented as of this encounter Care Teams Customer Service Associate Relationship Specialty Start Date End Date Dyllan Gil APRN [address] [place] [address] PCP - General 06/11/22 Lynda Spencer MD [facility] [address] [address] Referring Physician Nephrology 06/09/22 documented as of this encounter
--- OUTSIDE RECORDS SUMMARY | 2025-02-16 15:51 | XMS_ITS ---
Author Organization [facility] Address [address] [place] [address] Care Team Providers Care Crystal Grinder Name Role Phone Lynda Spencer MD Unavailable [phone] Dyllan Gil APRN Primary Care Provider [phone] Transplant Episode Kidney Candidate [facility] ([place], [place]) - [facility] Center waitlisted on 12/24/2022 Marked as Inactive on 03/31/2024 Reason: Temporarily too Sick Kidney CoordinatorNikki Ross RN Fax: N/A Email: N/A Scores Score Value Updated Exceptions/Reas ons CPRA 29 02/02/2024 EPTS (Calc) 32 02/16/2025 [place] Organ Diagnosis Organ Primary Contributory Kidney Diabetes Mellitus - Type II Hype rtensive Nephrosclerosis Care Team Name Role Phone Fax Email Nikki Ross RN Kidney Coordinator [phone] N/A N/A Dyllan Gil APRN Primary Care Provider [phone] N/A Christine Rosado LCSW Engine Repair Supervisor [phone] N/A N/A Lynda Spencer MD Referring Physician [phone] N/A Events Pre-Transplant Referred: 06/09/2022 Evaluation began: 07/04/2022 Committee: 07/02/2022 Center waitlisted: 12/24/2022
--- OUTSIDE RECORDS SUMMARY | 2025-02-16 15:51 | XMS_ITS | Encounter Summary ---
Author Organization Healthcare Address [address] [place] [address] Care Team Providers Care Advertisement Compositor Name Role Phone Lynda Spencer MD Unavailable [phone] Dyllan Gil APRN Primary Care Provider [phone] Reason for Visit * Reason Comments Med Refill Encounter Details Date Type Department Care Team (Late st Contact Info) Description 03/25/2023 [facility] [address] [place] [address] Makayla Bahena APRN [address] [address] Social History Tobacco Use Types [...] Description 02/22/2025 1:00 PM EDT Office Visit [facility] Nephrology, Bone & Mineral Metabolism [address] [facility] [place] [address] Lynda Spencer MD [address] [facility] [address] [place] [address] 03/01/2025 10:00 AM EST Office Visit [facility] [address] [place] [address] Munira Keen MD [address] [facility] [address] [place] [address] 03/07/2025 1:40 PM EST Office Visit [facility] Endocrinology [address] [place] [address] Makayla Bahena APRN [address] [place] [address] documented as of this encounter Visit Diagnoses Not on filedocumented in this encounter Additional Health Concerns Assessment Noted Time A fall risk assessment has been complete d for the patient 03/09/2023 4:01 PM EST A Body Mass Index follow-up plan has been documented for the patient 03/24/2023 1:29 PM EST documented as of this encounter Care Teams Advertisement Compositor Relationship Specialty Start Date End Date Dyllan Gil APRN [address] [place] [id number] PCP - General 06/11/22 Lynda Spencer MD [address] [address] Referring Physician Nephrology 06/09/22 documented as of this encounter
[2025-02-16 15:52] LABS: Microscopic, Urine URINE MICROSCOPIC (MICROSCOPIC)
--- OUTSIDE RECORDS SUMMARY | 2025-02-16 15:52 | XMS_ITS | Encounter Summary ---
Author Organization [facility] Address [address] [place] [id number] Care Team Providers Care Carrier Operator Name Role Phone Lynda Spencer MD Unavailable [phone] Dyllan Gil APRN Primary Care Provider [phone] Encounter Details Date Type Department Care Team ([facility] Contact Info) Description 02/16/2025 Telephone [facility] Nephrology, Bone & Mineral Metabolism [address] [facility], [address] [place] [address] Lynda Spencer MD [address] [place] [address] Social History Tobacco Use Types [...] encounter Miscellaneous Notes * Telephone Encounter - aSndra Mars - 02/16/2025 1:10 PM EDT Clinical Concern/Question Reason for Call: patient calling she would like her labs faxed to the medical center at [phone] Best contact number: Other: [phone] Optimal time of day to reach caller: ANYTIME Additional comments/information from caller: None Note: Please do not reply to this message. Follow-up communication and further actions as a result of this message need to be communicated with the patient directly, if the patient is not active onMyChart. If the patient is active on MyChart, they will receive notification of the communication/outcome via [employer]. documented in this encounter Plan of Treatment Upcoming Encounters Date Type Department Care Team (Late st Contact Info) Description 02/22/2025 1:00 PM EDT Office Visit [facility] [place] Nephrology, Bone & Mineral Metabolism [address] [facility], [address] [place] [address] Lynda Spencer MD [address] [facility] [address] [place] [address] 03/01/2025 10:00 AM EST Office Visit [facility] [address] [place] [address] Munira Keen MD 110 [facility] 550 [place] [address] 03/07/2025 1:40 PM EST Office Visit [facility] Endocrinology [address] [place] [address] Makayla Bahena APRN 2195 [facility] 125 [place] [address] documented as of this encounter Visit Diagnoses Not on filedocumented in this encounter Additional Health Concerns Assessment Noted Time A fall risk assessment has been complete d for the patient 11/16/2024 1:21 PM EDT A Body Mass Index follow-up plan has been documented for the patient 02/01/2025 3:06 PM EDT documented as of this encounter Care Teams Carrier Operator Relationship Specialty Start Date End Date Dyllan Gil APRN [address] [place] [id number] PCP - General 06/11/22 Lynda Spencer MD [address] [facility] 401 [place] [address] Referring Physician Nephrology 06/09/22 documented as of this encounter
--- OUTSIDE RECORDS SUMMARY | 2025-02-16 15:52 | XMS_ITS | Data Portability ---
Author Organization [facility] & SHAISTA Shane ADMIN Address [address] [place] [id number] Care Team Providers Care Tea Leaf Reader Name Role Phone DIALLO PLAZA Primary Care Provider DEWEY TUTTLE, SANTHOSH Child Support Agent Assessment Encounter Date Assessment Date Assessment LastModified by Organization Details LastModified Time 03/10/2024 03/10/2024 A total of 15 minutes was spent with the pt today. Recommendations: 1. Download SynapSense lance to track calories and protein 2. [...] modifications. Will f/up as scheduled or PRN. [email or web address] Not available 03/10/2024 15:06:52 Plan of Treatment Reminders Order Date Submit Date Provider Last Modified By Organization Details Last Modified Time Details Appointments None recorded. Lab CMP, serum or plasma 2024 025 NING [facility], [address], [address], [place], [address], 16:13:14 CBC w/ auto diff 2024 025 NING [facility], [address], [address], [place], [address], 5 16:13:13 prealbumin, serum 2024 025 NING [facility], [address], [address], [place], [address], 5 16:13:20 vitamin D, 25-hydroxy, total, serum 2024 025 NING [facility], [address], [address], [place], [address], 5 16:13:17 iron + TIBC + ferritin, serum 2024 025 NING [facility], [address], [address], [place], [address], 5 16:13:13 vitamin E, serum 2024 025 NING [facility], [address], [address], [place], [address], 5 16:13:15 vitamin A (retinol), serum 2024 025 NING [facility], [address], [address], [place], [address], 5 16:13:16 folate, serum 2024 025 NING [facility], [address], [address], [place], [address], 5 16:13:16 thiamine, QN, blood 2024 025 NING [facility], [address], [address], [place], [address], 5 16:13:18 methylmalon ate, QN, serum or plasma 2024 025 NING [facility], [address], [address], [place], [address], 5 16:13:18 CMP, serum or plasma 2023 024 NING [facility], [address], [address], [place], [address], 4 14:36:39 CBC w/ auto diff 2023 024 NING [facility], [address], [address], [place], [address], 4 14:36:38 folate, serum 2023 024 NING [facility], [address], [address], [place], [address], 4 14:36:44 prealbumin, serum 2023 024 NING [facility], [address], [address], [place], [address], 4 14:36:50 thiamine, QN, blood 2023 024 NING [facility], [address], [address], [place], [address], 4 14:36:48 HbA1c (hemoglobin A1c), blood 2023 024 NING [facility], [address], [address], [place], [address], 4 14:36:43 iron + TIBC + ferritin, serum 2023 024 NING [facility], [address], [address], [place], [address], 4 14:36:35 vitamin D, 25-hydroxy, total, serum 2023 024 NING [facility], [address], [address], [place], [address], 4 14:36:46 vitamin E, serum 2023 024 NING [facility], [address], [address], [place], [address], 4 14:36:42 vitamin A (retinol), serum 2023 024 NING [facility], [address], [address], [place], [address], 4 14:36:45 TSH + free T4, serum 2023 024 NING [facility], [address], [address], [place], [address], 4 14:36:36 lipid panel, serum 2023 024 NING [facility], [address], [address], [place], [address], 4 14:36:40 methylmalon ate, QN, serum or plasma 2023 024 NING [facility], [address], [address], [place], [address], 4 14:36:49 CMP, serum or plasma 2023 024 NING [facility], [address], [address], [place], [address], 4 20:05:42 CBC w/ auto diff 2023 024 NING [facility], [address], [address], [place], [address], 4 12:15:53 HbA1c (hemoglobin A1c), blood 2023 024 [email or web address] [facility], [address], [address], [place], [address], 4 12:12:08 iron + TIBC + ferritin, serum 2023 024 [email or web address] [facility], [address], [address], [place], [address], 4 12:12:08 folate, serum 2023 024 [email or web address] [facility], [address], [address], [place], [address], 4 12:12:08 vitamin D, 25-hydroxy, total, serum 2023 024 NING [facility], [address], [address], [place], [address], 4 13:07:01 vitamin E, serum 2023 024 NING [facility], [address], [address], [place], [address], 4 07:18:37 vitamin A (retinol), serum 2023 024 NING [facility], [address], [address], [place], [address], 4 07:18:38 prealbumin, serum 2023 024 [email or web address] [facility], [address], [address], [place], [address], 4 12:12:08 thiamine, QN, blood 2023 024 [email or web address] [facility], [address], [address], [place], [address], 4 12:12:08 lipid panel, serum 2023 024 NING [facility], [address], [address], [place], [address], 4 20:05:42 methylmalon ate, QN, serum or plasma 2023 024 [email or web address] [facility], [address], [address], [place], [address], 4 12:12:08 CMP, serum or plasma 2023 024 NING [facility], [address], [address], [place], [address], 4 11:13:25 CBC w/ auto diff 2023 024 NING [facility], [address], [address], [place], [address], 4 11:13:24 vitamin D, 25-hydroxy, total, serum 2023 024 NING [facility], [address], [address], [place], [address], 4 11:13:30 prealbumin, serum 2023 024 NING [facility], [address], [address], [place], [address], 4 11:13:33 thiamine, QN, blood 2023 024 NING [facility], [address], [address], [place], [address], 4 11:13:31 iron + TIBC + ferritin, serum 2023 024 [facility], [address], [address], [place], [address], 4 11:13:22 folate, serum 2023 024 [facility], [address], [address], [place], [address], 4 11:13:28 vitamin E, serum 2023 024 [facility], [address], [address], [place], [address], 4 11:13:27 vitamin A (retinol), serum 2023 024 [facility], [address], [address], [place], [address], 4 11:13:29 TSH + free T4, serum 2023 024 [facility], [address], [address], [place], [address], 4 11:13:23 methylmalon ate, QN, serum or plasma 2023 024 [facility], [address], [address], [place], [address], 4 11:13:32 Referral None recorded. Procedures None recorded. Surgeries None recorded. Imaging None recorded. Medication Orders omeprazole 20 mg capsule,del ayed release 2024 025 [facility], [address], [id number], 5 14:21:28 famotidine 20 mg tablet 2024 025 NING [facility], [address] [facility] [address] [place] [place], [id number], 5 14:21:27 omeprazole 20 mg capsule,del ayed release 2023 024 NING [facility], [address] [facility] [address] [place], [id number], 4 14:33:45 Patient TargetsNo targets recorded. Patient InstructionsNo instructions recorded. Reason for Referral None Reported. Results Created Date Observation Date Name Description Value Unit Range Abnormal Flag Note LastModifiedBy Organization Detail LastModifiedTime 09/18/1909/19/2023 FE+TI BC+FE R iron bind.cap.(TI BC) 228 ug/dL 250-45 0 below low normal Not Available [facility] ([facility]) [address] [place], [address], 09/24/2023 11:13:22 09/18/19 24 09/19/2023 FE+TI BC+FE R UIBC 166 ug/dL 131-42 5 Not Available [facility] ([facility]) [address] [place], [address], 09/24/2023 11:13:22 09/18/19 24 09/19/2023 FE+TI BC+FE R iron 62 ug/dL 27-159 Not Available [facility] ([facility]) [address] [place], [address], 09/24/2023 11:13:22 09/18/19 24 09/19/2023 FE+TI BC+FE R iron saturation 27 % 15-55 Not Available [facility] ([facility]) [address] [place], [address], 09/24/2023 11:13:22 09/18/19 24 09/19/2023 FE+TI BC+FE R ferritin 269 NG/mL 15-150 above high normal Not Available [facility] ([facility]) [address] [place], [address], 09/24/2023 11:13:22 09/18/19 24 09/19/2023 TSH+F REE T4 TSH 1.380 uIU/m L 0.450- 4.500 Not Available [facility] ([facility]) [address] [place], [address], 09/24/2023 11:13:23 09/18/19 24 09/19/2023 TSH+F REE T4 T4,free(dire ct) 0.88 NG/dL 0.82-1 .77 Not Available [facility] ([facility]) [address] [facility], [place], [address], 09/24/2023 11:13:23 09/18/19 24 09/19/2023 CBC WITH DIFFE RENTI AL/PL ATELE T WBC 7.4 x10e3 /uL 3.4-10 .8 Not Available [facility] ([facility]) [address] [place], [address], 09/24/2023 11:13:24 09/18/19 24 09/19/2023 CBC WITH DIFFE RENTI AL/PL ATELE T RBC 3.86 x10e6 /uL 3.77-5 .28 Not Available [facility] ([facility]) [address] [place], [address], 09/24/2023 11:13:24 09/18/19 24 09/19/2023 CBC WITH DIFFE RENTI AL/PL ATELE T hemoglobin 11.6 g/dL 11.1-1 5.9 Not Available [facility] ([facility]) [address] [place], [address], 09/24/2023 11:13:24 09/18/19 24 09/19/2023 CBC WITH DIFFE RENTI AL/PL ATELE T hematocrit 34.5 % 34.0-4 6.6 Not Available [facility] ([facility]) [address] [facility], [place], [address], 09/24/2023 11:13:24 09/18/19 24 09/19/2023 CBC WITH DIFFE RENTI AL/PL ATELE T MCV 89 fL 79-97 Not Available [facility] ([facility]) [address] [facility], [place], [address], 09/24/2023 11:13:24 09/18/19 24 09/19/2023 CBC WITH DIFFE RENTI AL/PL ATELE T MCH 30.1 pg 26.6-3 3.0 Not Available [facility] ([facility]) [address] [facility], [place], [address], 09/24/2023 11:13:24 09/18/19 24 09/19/2023 CBC WITH DIFFE RENTI AL/PL ATELE T MCHC 33.6 g/dL 31.5-3 5.7 Not Available [facility] ([facility]) [address] [facility], [place], [address], 09/24/2023 11:13:24 09/18/19 24 09/19/2023 CBC WITH DIFFE RENTI AL/PL ATELE T RDW 13.3 % 11.7-1 5.4 Not Available [facility] ([facility]) [address] [facility], [place], [address], 09/24/2023 11:13:24 09/18/19 24 09/19/2023 CBC WITH DIFFE RENTI AL/PL ATELE T platelets 204 x10e3 /uL 150-45 0 Not Available [facility] ([facility]) [address] [facility], [place], [address], 09/24/2023 11:13:24 09/18/19 24 09/19/2023 CBC WITH DIFFE RENTI AL/PL ATELE T neutrophils 66 % not estab. Not Available [facility] ([facility]) [address] [facility], [place], [address], 09/24/2023 11:13:24 09/18/19 24 09/19/2023 CBC WITH DIFFE RENTI AL/PL ATELE T lymphs 25 % not estab. Not Available [facility] ([facility]) [address] [facility], [place], [address], 09/24/2023 11:13:24 09/18/19 24 09/19/2023 CBC WITH DIFFE RENTI AL/PL ATELE T monocytes 5 % not estab. Not Available [facility] ([facility]) [address] [facility], [place], [address], 09/24/2023 11:13:24 09/18/19 24 09/19/2023 CBC WITH DIFFE RENTI AL/PL ATELE T eos 3 % not estab. Not Available [facility] ([facility]) [address] [facility], [place], [address], 09/24/2023 11:13:24 09/18/19 24 09/19/2023 CBC WITH DIFFE RENTI AL/PL ATELE T basos 1 % not estab. Not Available [facility] ([facility]) [address] [facility], [place], [address], 09/24/2023 11:13:24 09/18/19 24 09/19/2023 CBC WITH DIFFE RENTI AL/PL ATELE T immature cells LITIGATION LEGAL ASSISTANT Not Available [facility] ([facility]) [address] [facility], [place], [address], 09/24/2023 11:13:24 09/18/19 24 09/19/2023 CBC WITH DIFFE RENTI AL/PL ATELE T neutrophils (absolute) 4.9 x10e3 /uL 1.4-7. 0 Not Available [facility] ([facility]) [address] [facility], [place], [address], 09/24/2023 11:13:24 09/18/19 24 09/19/2023 CBC WITH DIFFE RENTI AL/PL ATELE T lymphs (absolute) 1.9 x10e3 /uL 0.7-3. 1 Not Available [facility] ([facility]) [address] [facility], [place], [address], 09/24/2023 11:13:24 09/18/19 24 09/19/2023 CBC WITH DIFFE RENTI AL/PL ATELE T monocytes(ab solute) 0.3 x10e3 /uL 0.1-0. 9 Not Available [facility] ([facility]) [address] [facility], [place], [address], 09/24/2023 11:13:24 09/18/19 24 09/19/2023 CBC WITH DIFFE RENTI AL/PL ATELE T eos (absolute) 0.2 x10e3 /uL 0.0-0. 4 Not Available [facility] ([facility]) [address] [facility], [place], [address], 09/24/2023 11:13:24 09/18/19 24 09/19/2023 CBC WITH DIFFE RENTI AL/PL ATELE T baso (absolute) 0.1 x10e3 /uL 0.0-0. 2 Not Available [facility] ([facility]) [address] [facility], [place], [address], 09/24/2023 11:13:24 09/18/19 24 09/19/2023 CBC WITH DIFFE RENTI AL/PL ATELE T immature granulocytes 0 % not estab. Not Available [facility] ([facility]) [address] [place], [address], 09/24/2023 11:13:24 09/18/19 24 09/19/2023 CBC WITH DIFFE RENTI AL/PL ATELE T immature grans (abs) 0.0 x10e3 /uL 0.0-0. 1 Not Available [facility] ([facility]) [address] [facility], [place], [address], 09/24/2023 11:13:24 09/18/19 24 09/19/2023 CBC WITH DIFFE RENTI AL/PL ATELE T NRBC LITIGATION LEGAL ASSISTANT Not Available [facility] ([facility]) [address], [place], [address], 09/24/2023 11:13:24 09/18/19 24 09/19/2023 CBC WITH DIFFE RENTI AL/PL ATELE T hematology comments: LITIGATION LEGAL ASSISTANT Not Available [facility] ([facility]) [address], [place], [address], 09/24/2023 11:13:24 09/18/19 24 09/19/2023 COMP. METAB OLIC PANEL (14) glucose 84 mg/dL 70-99 Not Available [facility] ([facility]) [address] [facility], [place], [address], 09/24/2023 11:13:25 09/18/19 24 09/19/2023 COMP. METAB OLIC PANEL (14) BUN 36 mg/dL 6-24 above high normal Not Available [facility] ([facility]) [address] [facility], [place], [address], 09/24/2023 11:13:25 09/18/19 24 09/19/2023 COMP. METAB OLIC PANEL (14) creatinine 2.58 mg/dL 0.57-1 .00 above high normal Not Available [facility] ([facility]) [address] [facility], [place], [address], 09/24/2023 11:13:25 09/18/19 24 09/19/2023 COMP. METAB OLIC PANEL (14) eGFR 22 mL/mi n/1.7 3 >59 below low normal Not Available [facility] ([facility]) [address] [facility], [place], [address], 09/24/2023 11:13:25 09/18/19 24 09/19/2023 COMP. METAB OLIC PANEL (14) BUN/creatini ne ratio 14 9-23 Not Available [facility] ([facility]) [address] [place], [address], 09/24/2023 11:13:25 09/18/19 24 09/19/2023 COMP. METAB OLIC PANEL (14) sodium 144 mmol/ L 134-14 4 Not Available [facility] ([facility]) [address] [place], [address], 09/24/2023 11:13:25 09/18/19 24 09/19/2023 COMP. METAB OLIC PANEL (14) potassium 4.5 mmol/ L 3.5-5. 2 Not Available [facility] ([facility]) [address] [place], [address], 09/24/2023 11:13:25 09/18/19 24 09/19/2023 COMP. METAB OLIC PANEL (14) chloride 109 mmol/ L 96-106 above high normal Not Available [facility] ([facility]) [address] [place], [address], 09/24/2023 11:13:25 09/18/19 24 09/19/2023 COMP. METAB OLIC PANEL (14) carbon dioxide, total 21 mmol/ L 20-29 Not Available [facility] ([facility]) [address] [place], [address], 09/24/2023 11:13:25 09/18/19 24 09/19/2023 COMP. METAB OLIC PANEL (14) calcium 9.7 mg/dL 8.7-10 .2 Not Available [facility] ([facility]) [address] [place], [address], 09/24/2023 11:13:25 09/18/19 24 09/19/2023 COMP. METAB OLIC PANEL (14) protein, total 7.3 g/dL 6.0-8. 5 Not Available [facility] ([facility]) [address] [facility], [place], [address], 09/24/2023 11:13:25 09/18/19 24 09/19/2023 COMP. METAB OLIC PANEL (14) albumin 4.3 g/dL 3.9-4. 9 Not Available [facility] ([facility]) [address] [facility], [place], [address], 09/24/2023 11:13:25 09/18/19 24 09/19/2023 COMP. METAB OLIC PANEL (14) globulin, total 3.0 g/dL 1.5-4. 5 Not Available [facility] ([facility]) [address] [facility], [place], [address], 09/24/2023 11:13:25 09/18/19 24 09/19/2023 COMP. METAB OLIC PANEL (14) A/G ratio 1.4 1.2-2. 2 Not Available [facility] ([facility]) [address] [facility], [place], [address], 09/24/2023 11:13:25 09/18/19 24 09/19/2023 COMP. METAB OLIC PANEL (14) bilirubin, total 0.3 mg/dL 0.0-1. 2 Not Available [facility] ([facility]) [address] [facility], [place], [address], 09/24/2023 11:13:25 09/18/19 24 09/19/2023 COMP. METAB OLIC PANEL (14) alkaline phosphatase 125 IU/L 44-121 above high normal Not Available [facility] ([facility]) [address] [facility], [place], [address], 09/24/2023 11:13:25 09/18/19 24 09/19/2023 COMP. METAB OLIC PANEL (14) AST (SGOT) 14 IU/L 0-40 Not Available [facility] ([facility]) [address] [facility], [place], [address], 09/24/2023 11:13:25 09/18/19 24 09/19/2023 COMP. METAB OLIC PANEL (14) ALT (SGPT) 8 IU/L 0-32 Not Available [facility] ([facility]) [address] [facility], [place], [address], 09/24/2023 11:13:25 09/18/19 24 09/24/2023 VITAM IN E vitamin E(alpha tocopherol) 12.1 mg/L 7.0-25 .1 Not Available [facility] ([facility]) [address] [facility], [place], [address], 09/24/2023 11:13:26 09/18/19 24 09/24/2023 VITAM IN [...] in E defic ient. Not Available [facility] ([facility]) [address] [facility], [place], [address], 09/24/2023 11:13:26 09/18/19 24 09/19/2023 FOLAT E (FOLI C ACID) , SERUM folate (folic acid), serum >20.0 NG/mL >3.0 A serum folat e valarie ntrat ion of less than 3.1 ng/mL is consi dered to repre sent clini kaden defic iency . Not Available [facility] ([facility]) [address] [facility], [place], [address], 09/24/2023 11:13:28 09/18/19 24 09/24/2023 VITAM IN [...] Drug Admin istra tion. Not Available [facility] ([facility]) [address] [facility], [place], [address], 09/24/2023 11:13:29 09/18/19 24 09/19/2023 VITAM IN [...] Won dominguez [place]: The Natio nal [facility] Press . 2. Hector varghese MF, Dick rivera [place], Evon off-F errar i PINEDA, et al. Evalu ation , treat ment, and preve ntion of vitam in D defic iency : an Endoc rine Socie ty clini kaden pract ice guide line. JCEM. 2010; 96(7) :1911 -30. Not Available [facility] ([facility]) [address] [facility], [place], [address], 09/24/2023 11:13:30 09/18/19 24 09/23/2023 VITAM IN B1 (THIA MINE) , BLOOD vit. B1, whole blood 111.4 nmol/ L 66.5-2 00.0 Not Available [facility] ([facility]) [address] [place], [address], 09/24/2023 11:13:31 09/18/19 24 09/22/2023 METHY LMALO ENRIQUE ACID, SERUM methylmaloni c acid, serum 416 nmol/ L 0-378 above high normal Not Available [facility] ([facility]) [address] [place], [address], 09/24/2023 11:13:32 09/18/19 24 09/19/2023 PREAL BUMIN prealbumin 22 mg/dL 12-34 Not Available [facility] ([facility]) [address] [place], [address], 09/24/2023 11:13:33 03/10/20 24 03/11/2024 FE+TI BC+FE R iron bind.cap.(TI BC) 229 ug/dL 250-45 0 below low normal Not Available [facility] ([facility]) [address] [place], [address], 03/21/2024 14:36:35 03/10/20 24 03/11/2024 FE+TI BC+FE R UIBC 183 ug/dL 131-42 5 normal Not Available [facility] ([facility]) [address] [place], [address], 03/21/2024 14:36:35 03/10/20 24 03/11/2024 FE+TI BC+FE R iron 46 ug/dL 27-159 normal Not Available [facility] ([facility]) [address] [place], [address], 03/21/2024 14:36:35 03/10/20 24 03/11/2024 FE+TI BC+FE R iron saturation 20 % 15-55 normal Not Available [facility] ([facility]) [address] [place], [address], 03/21/2024 14:36:35 03/10/20 24 03/11/2024 FE+TI BC+FE R ferritin 184 NG/mL 15-150 above high normal Not Available [facility] ([facility]) [address] [place], [address], 03/21/2024 14:36:35 03/10/20 24 03/11/2024 TSH+F REE T4 TSH 1.400 uIU/m L 0.450- 4.500 normal Not Available [facility] ([facility]) [address] [place], [address], 03/21/2024 14:36:36 03/10/2003/11/2024 TSH+F REE T4 T4,free(dire ct) 0.95 NG/dL 0.82-1 .77 normal Not Available [facility] ([facility]) [address] [place], [address], 03/21/2024 14:36:36 03/10/2003/11/2024 CBC WITH DIFFE RENTI AL/PL ATELE T WBC 8.4 x10e3 /uL 3.4-10 .8 normal Eff ectiv e Decem sheela 2023 profi xavier [id number] WBC will be made* * non-o rdera ble as a stand -radha e order code. Not Available [facility] ([facility]) [address] [place], [address], 03/21/2024 14:36:38 03/10/2003/11/2024 CBC WITH DIFFE RENTI AL/PL ATELE T RBC 3.71 x10e6 /uL 3.77-5 .28 below low normal Not Available [facility] ([facility]) [address] [place], [address], 03/21/2024 14:36:38 03/10/20 24 03/11/2024 CBC WITH DIFFE RENTI AL/PL ATELE T hemoglobin 11.4 g/dL 11.1-1 5.9 normal Not Available [facility] ([facility]) [address] [place], [address], 03/21/2024 14:36:38 03/10/20 24 03/11/2024 CBC WITH DIFFE RENTI AL/PL ATELE T hematocrit 34.6 % 34.0-4 6.6 normal Not Available [facility] ([facility]) [address] [place], [address], 03/21/2024 14:36:38 03/10/20 24 03/11/2024 CBC WITH DIFFE RENTI AL/PL ATELE T MCV 93 fL 79-97 normal Not Available [facility] ([facility]) [address] [place], [address], 03/21/2024 14:36:38 03/10/20 24 03/11/2024 CBC WITH DIFFE RENTI AL/PL ATELE T MCH 30.7 pg 26.6-3 3.0 normal Not Available [facility] ([facility]) [address] [place], [address], 03/21/2024 14:36:38 03/10/20 24 03/11/2024 CBC WITH DIFFE RENTI AL/PL ATELE T MCHC 32.9 g/dL 31.5-3 5.7 normal Not Available [facility] ([facility]) [address] [place], [address], 03/21/2024 14:36:38 03/10/20 24 03/11/2024 CBC WITH DIFFE RENTI AL/PL ATELE T RDW 11.8 % 11.7-1 5.4 Not Available [facility] ([facility]) [address] [place], [address], 03/21/2024 14:36:38 03/10/20 24 03/11/2024 CBC WITH DIFFE RENTI AL/PL ATELE T platelets 162 x10e3 /uL 150-45 0 normal Not Available [facility] ([facility]) [address] [facility], [place], [address], 03/21/2024 14:36:38 03/10/20 24 03/11/2024 CBC WITH DIFFE RENTI AL/PL ATELE T neutrophils 65 % not estab. normal Not Available [facility] ([facility]) [address] [facility], [place], [address], 03/21/2024 14:36:38 03/10/20 24 03/11/2024 CBC WITH DIFFE RENTI AL/PL ATELE T lymphs 25 % not estab. normal Not Available [facility] ([facility]) [address] [facility], [place], [address], 03/21/2024 14:36:38 03/10/20 24 03/11/2024 CBC WITH DIFFE RENTI AL/PL ATELE T monocytes 5 % not estab. normal Not Available [facility] ([facility]) [address] [facility], [place], [address], 03/21/2024 14:36:38 03/10/20 24 03/11/2024 CBC WITH DIFFE RENTI AL/PL ATELE T eos 4 % not estab. normal Not Available [facility] ([facility]) [address] [facility], [place], [address], 03/21/2024 14:36:38 03/10/20 24 03/11/2024 CBC WITH DIFFE RENTI AL/PL ATELE T basos 1 % not estab. normal Not Available [facility] ([facility]) [address] [facility], [place], [address], 03/21/2024 14:36:38 03/10/20 24 03/11/2024 CBC WITH DIFFE RENTI AL/PL ATELE T immature cells L[employer]ATION LEGAL ASSISTANT Not Available [facility] ([facility]) [address] [place], [address], 03/21/2024 14:36:38 03/10/20 24 03/11/2024 CBC WITH DIFFE RENTI AL/PL ATELE T neutrophils (absolute) 5.5 x10e3 /uL 1.4-7. 0 normal Not Available [facility] ([facility]) [address] [place], [address], 03/21/2024 14:36:38 03/10/20 24 03/11/2024 CBC WITH DIFFE RENTI AL/PL ATELE T lymphs (absolute) 2.1 x10e3 /uL 0.7-3. 1 normal Not Available [facility] ([facility]) [address] [place], [address], 03/21/2024 14:36:38 03/10/20 24 03/11/2024 CBC WITH DIFFE RENTI AL/PL ATELE T monocytes(ab solute) 0.4 x10e3 /uL 0.1-0. 9 normal Not Available [facility] ([facility]) [address] [place], [address], 03/21/2024 14:36:38 03/10/20 24 03/11/2024 CBC WITH DIFFE RENTI AL/PL ATELE T eos (absolute) 0.3 x10e3 /uL 0.0-0. 4 normal Not Available [facility] ([facility]) [address] [place], [address], 03/21/2024 14:36:38 03/10/20 24 03/11/2024 CBC WITH DIFFE RENTI AL/PL ATELE T baso (absolute) 0.1 x10e3 /uL 0.0-0. 2 normal Not Available [facility] ([facility]) [address] [place], [address], 03/21/2024 14:36:38 03/10/20 24 03/11/2024 CBC WITH DIFFE RENTI AL/PL ATELE T immature granulocytes 0 % not estab. Not Available [facility] ([facility]) [address] [facility], [place], [address], 03/21/2024 14:36:38 03/10/20 24 03/11/2024 CBC WITH DIFFE RENTI AL/PL ATELE T immature grans (abs) 0.0 x10e3 /uL 0.0-0. 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 METAB OLIC PANEL (14) glucose 148 mg/dL 70-99 above high normal Not Available [facility] ([facility]) [address] [place], [address], 03/21/2024 14:36:39 03/10/20 24 03/11/2024 COMP. METAB OLIC PANEL (14) BUN 34 mg/dL 6-24 above high normal Not Available [facility] ([facility]) [address] [place], [address], 03/21/2024 14:36:39 03/10/20 24 03/11/2024 COMP. METAB OLIC PANEL (14) creatinine 2.07 mg/dL 0.57-1 .00 above high normal Not Available [facility] ([facility]) [address] [place], [address], 03/21/2024 14:36:39 03/10/20 24 03/11/2024 COMP. METAB OLIC PANEL (14) eGFR 29 mL/mi n/1.7 3 >59 below low normal Not Available [facility] ([facility]) [address] [place], [address], 03/21/2024 14:36:39 03/10/20 24 03/11/2024 COMP. METAB OLIC PANEL (14) BUN/creatini ne ratio 16 9-23 normal Not Available [facility] ([facility]) [address] [facility], [place], [address], 03/21/2024 14:36:39 03/10/20 24 03/11/2024 COMP. METAB OLIC PANEL (14) sodium 143 mmol/ L 134-14 4 normal Not Available [facility] ([facility]) [address] [place], [address], 03/21/2024 14:36:39 03/10/20 24 03/11/2024 COMP. METAB OLIC PANEL (14) potassium 4.8 mmol/ L 3.5-5. 2 normal Not Available [facility] ([facility]) [address] [place], [address], 03/21/2024 14:36:39 03/10/20 24 03/11/2024 COMP. METAB OLIC PANEL (14) chloride 106 mmol/ L 96-106 normal Not Available [facility] ([facility]) [address] [place], [address], 03/21/2024 14:36:39 03/10/20 24 03/11/2024 COMP. METAB OLIC PANEL (14) carbon dioxide, total 26 mmol/ L 20-29 normal Not Available [facility] ([facility]) [address], [place], [address], 03/21/2024 14:36:39 03/10/20 24 03/11/2024 COMP. METAB OLIC PANEL (14) calcium 9.5 mg/dL 8.7-10 .2 normal Not Available [facility] ([facility]) [address] [place], [address], 03/21/2024 14:36:39 03/10/20 24 03/11/2024 COMP. METAB OLIC PANEL (14) protein, total 6.8 g/dL 6.0-8. 5 normal Not Available [facility] ([facility]) [address] [place], [address], 03/21/2024 14:36:39 03/10/20 24 03/11/2024 COMP. METAB OLIC PANEL (14) albumin 4.1 g/dL 3.9-4. 9 normal Not Available [facility] ([facility]) [address] [place], [address], 03/21/2024 14:36:39 03/10/20 24 03/11/2024 COMP. METAB OLIC PANEL (14) globulin, total 2.7 g/dL 1.5-4. 5 Not Available [facility] ([facility]) [address] [place], [address], 03/21/2024 14:36:39 03/10/20 24 03/11/2024 COMP. METAB OLIC PANEL (14) bilirubin, total 0.2 mg/dL 0.0-1. 2 normal Not Available [facility] ([facility]) [address] [place], [address], 03/21/2024 14:36:39 03/10/20 24 03/11/2024 COMP. METAB OLIC PANEL (14) alkaline phosphatase 124 IU/L 44-121 above high normal Not Available [facility] ([facility]) [address] [facility], [place], [address], 03/21/2024 14:36:39 03/10/20 24 03/11/2024 COMP. METAB OLIC PANEL (14) AST (SGOT) 19 IU/L 0-40 normal Not Available [facility] ([facility]) [address] [facility], [place], [address], 03/21/2024 14:36:39 03/10/20 24 03/11/2024 COMP. METAB OLIC PANEL (14) ALT (SGPT) 19 IU/L 0-32 normal Not Available [facility] ([facility]) [address] [facility], [place], [address], 03/21/2024 14:36:39 03/10/20 24 03/11/2024 LIPID PANEL cholesterol, total 154 mg/dL 100-19 9 normal Not Available [facility] ([facility]) [address] [place], [address], 03/21/2024 14:36:40 03/10/20 24 03/11/2024 LIPID PANEL triglyceride s 125 mg/dL 0-149 normal Not Available [facility] ([facility]) [address] [facility], [place], [address], 03/21/2024 14:36:40 03/10/20 24 03/11/2024 LIPID PANEL HDL cholesterol 50 mg/dL >39 normal Not Available [facility] ([facility]) [address] [place], [address], 03/21/2024 14:36:40 03/10/20 24 03/11/2024 LIPID PANEL VLDL cholesterol kaden 22 mg/dL 5-40 Not Available [facility] ([facility]) [address] [place], [address], 03/21/2024 14:36:40 03/10/20 24 03/11/2024 LIPID PANEL LDL chol calc ([facility]) 82 mg/dL 0-99 Not Available [facility] ([facility]) [address] [facility], [place], [address], 03/21/2024 14:36:40 03/10/20 24 03/11/2024 LIPID PANEL LDL calc comment: LITIGATION LEGAL ASSISTANT Not Available [facility] ([facility]) [address] [facility], [place], [address], 03/21/2024 14:36:40 03/10/20 24 03/21/2024 VITAM IN E vitamin E(alpha tocopherol) 8.9 mg/L 7.0-25 .1 Not Available [facility] ([facility]) [address] [facility], [place], [address], 03/21/2024 14:36:42 03/10/20 24 03/21/2024 VITAM IN [...] in E defic ient. Not Available [facility] ([facility]) [address] [facility], [place], [address], 03/21/2024 14:36:42 03/10/20 24 03/11/2024 HEMOG LOBIN A1C hemoglobin A1C 7.1 % 4.8-5. 6 above high normal Predi abete s: 5.7 - 6.4 Diabe marleen: >6.4 Glyce raul contr ol for adult s with diabe marleen: <7.0 Not Available [facility] ([facility]) [address] [facility], [place], [address], 03/21/2024 14:36:43 03/10/20 24 03/11/2024 FOLAT E (FOLI C ACID) , SERUM folate (folic acid), serum >20.0 NG/mL >3.0 A serum folat e valarie ntrat ion of less than 3.1 ng/mL is consi dered to repre sent clini kaden defic iency . Not Available [facility] ([facility]) [address] [facility], [place], [address], 03/21/2024 14:36:44 03/10/20 24 03/21/2024 VITAM IN [...] e greg cteri stics deter mined by [employer]. It has not been clear ed or appro audi by the Food and Drug Admin istra tion. Not Available [facility] ([facility]) [address] [facility], [place], [address], 03/21/2024 14:36:45 03/10/20 24 03/11/2024 VITAM IN [...] Won dominguez [place]: The Natio [facility]al [facility] Press . 2. Hector varghese MF, Dick ey [place], Bisfranchesca off-F errar i PINEDA, et al. Evalu ation , treat ment, and preve ntion of vitam in D defic iency : an Endoc rine Socie ty clini kaden pract ice guide line. JCEM. 2010; 96(7) :1911 -30. Not Available [facility] ([facility]) [address] [place], [address], 03/21/2024 14:36:46 03/10/20 24 03/13/2024 VITAM IN B1 (THIA MINE) , BLOOD vit. B1, whole blood 136.1 nmol/ L 66.5-2 00.0 Not Available [facility] ([facility]) [address] [place], [address], 03/21/2024 14:36:48 03/10/20 24 03/14/2024 METHY LMALO ENRIQUE ACID, SERUM methylmaloni c acid, serum 255 nmol/ L 0-378 Not Available [facility] ([facility]) [address] [place], [address], 03/21/2024 14:36:49 03/10/20 24 03/11/2024 PREAL BUMIN prealbumin 25 mg/dL 12-34 Not Available [facility] ([facility]) [address] [place], [address], 03/21/2024 14:36:50 09/24/19 25 09/24/2024 FE+TI BC+FE R iron bind.cap.(TI BC) 301 ug/dL 250-45 0 normal Not Available [facility] ([facility]) [address] [place], [address], 09/30/2024 16:13:13 09/24/19 25 09/24/2024 FE+TI BC+FE R UIBC 253 ug/dL 131-42 5 normal Not Available [facility] ([facility]) [address] [place], [address], 09/30/2024 16:13:13 09/24/19 25 09/24/2024 FE+TI BC+FE R iron 48 ug/dL 27-159 normal Not Available [facility] ([facility]) [address] [place], [address], 09/30/2024 16:13:13 09/24/19 25 09/24/2024 FE+TI BC+FE R iron saturation 16 % 15-55 normal Not Available [facility] ([facility]) [address] [place], [address], 09/30/2024 16:13:13 09/24/19 25 09/24/2024 FE+TI BC+FE R ferritin 67 NG/mL 15-150 normal Not Available [facility] ([facility]) [address] [place], [address], 09/30/2024 16:13:13 09/24/19 25 09/24/2024 CBC WITH DIFFE RENTI AL/PL ATELE T WBC 8.3 x10e3 /uL 3.4-10 .8 normal Not Available [facility] ([facility]) [address] [place], [address], 09/30/2024 16:13:13 09/24/19 25 09/24/2024 CBC WITH DIFFE RENTI AL/PL ATELE T RBC 4.89 x10e6 /uL 3.77-5 .28 normal Not Available [facility] ([facility]) [address] [place], [address], 09/30/2024 16:13:13 09/24/19 25 09/24/2024 CBC WITH DIFFE RENTI AL/PL ATELE T hemoglobin 14.3 g/dL 11.1-1 5.9 normal Not Available [facility] ([facility]) [address] [place], [address], 09/30/2024 16:13:13 09/24/19 25 09/24/2024 CBC WITH DIFFE RENTI AL/PL ATELE T hematocrit 45.2 % 34.0-4 6.6 normal Not Available [facility] ([facility]) [address] [place], [address], 09/30/2024 16:13:13 09/24/19 25 09/24/2024 CBC WITH DIFFE RENTI AL/PL ATELE T MCV 92 fL 79-97 normal Not Available [facility] ([facility]) [address] [place], [address], 09/30/2024 16:13:13 09/24/19 25 09/24/2024 CBC WITH DIFFE RENTI AL/PL ATELE T MCH 29.2 pg 26.6-3 3.0 normal Not Available [facility] ([facility]) [address] [place], [address], 09/30/2024 16:13:13 09/24/19 25 09/24/2024 CBC WITH DIFFE RENTI AL/PL ATELE T MCHC 31.6 g/dL 31.5-3 5.7 normal Not Available [facility] ([facility]) [address] [place], [address], 09/30/2024 16:13:13 09/24/1909/24/2024 CBC WITH DIFFE RENTI AL/PL ATELE T RDW 13.6 % 11.7-1 5.4 Not Available [facility] ([facility]) [address] [place], [address], 09/30/2024 16:13:13 09/24/1909/24/2024 CBC WITH DIFFE RENTI AL/PL ATELE T platelets 209 x10e3 /uL 150-45 0 normal Not Available [facility] ([facility]) [address] [place], [address], 09/30/2024 16:13:13 09/24/19 09/24/2024 CBC WITH DIFFE RENTI AL/PL ATELE T neutrophils 60 % not estab. normal Not Available [facility] ([facility]) [address] [facility], [place], [address], 09/30/2024 16:13:13 09/24/19 25 09/24/2024 CBC WITH DIFFE RENTI AL/PL ATELE T lymphs 30 % not estab. normal Not Available [facility] ([facility]) [address] [facility], [place], [address], 09/30/2024 16:13:13 09/24/19 25 09/24/2024 CBC WITH DIFFE RENTI AL/PL ATELE T monocytes 4 % not estab. normal Not Available [facility] ([facility]) [address] [facility], [place], [address], 09/30/2024 16:13:13 09/24/19 25 09/24/2024 CBC WITH DIFFE RENTI AL/PL ATELE T eos 5 % not estab. normal Not Available [facility] ([facility]) [address] [facility], [place], [address], 09/30/2024 16:13:13 09/24/19 25 09/24/2024 CBC WITH DIFFE RENTI AL/PL ATELE T basos 1 % not estab. normal Not Available [facility] ([facility]) [address] [facility], [place], [address], 09/30/2024 16:13:13 09/24/19 25 09/24/2024 CBC WITH DIFFE RENTI AL/PL ATELE T immature cells LITIGATION LEGAL ASSISTANT Not Available [facility] ([facility]) [address] [place], [address], 09/30/2024 16:13:13 09/24/19 25 09/24/2024 CBC WITH DIFFE RENTI AL/PL ATELE T neutrophils (absolute) 5.0 x10e3 /uL 1.4-7. 0 normal Not Available [facility] ([facility]) [address] [facility], [place], [address], 09/30/2024 16:13:13 09/24/19 25 09/24/2024 CBC WITH DIFFE RENTI AL/PL ATELE T lymphs (absolute) 2.5 x10e3 /uL 0.7-3. 1 normal Not Available [facility] ([facility]) [address] [facility], [place], [address], 09/30/2024 16:13:13 09/24/19 25 09/24/2024 CBC WITH DIFFE RENTI AL/PL ATELE T monocytes(ab solute) 0.3 x10e3 /uL 0.1-0. 9 normal Not Available [facility] ([facility]) [address] [facility], [place], [address], 09/30/2024 16:13:13 09/24/19 25 09/24/2024 CBC WITH DIFFE RENTI AL/PL ATELE T eos (absolute) 0.4 x10e3 /uL 0.0-0. 4 normal Not Available [facility] ([facility]) [address] [facility], [place], [address], 09/30/2024 16:13:13 09/24/19 25 09/24/2024 CBC WITH DIFFE RENTI AL/PL ATELE T baso (absolute) 0.1 x10e3 /uL 0.0-0. 2 normal Not Available [facility] ([facility]) [address] [place], [address], 09/30/2024 16:13:13 09/24/19 25 09/24/2024 CBC WITH DIFFE RENTI AL/PL ATELE T immature granulocytes 0 % not estab. Not Available [facility] ([facility]) [address] [place], [address], 09/30/2024 16:13:13 09/24/19 09/24/2024 CBC WITH DIFFE RENTI AL/PL ATELE T immature grans (abs) 0.0 x10e3 /uL 0.0-0. 1 Not Available [facility] ([facility]) [address] [facility], [place], [address], 09/30/2024 16:13:13 09/24/19 25 09/24/2024 CBC WITH DIFFE RENTI AL/PL ATELE T NRBC LITIGATION LEGAL ASSISTANT Not Available [facility] ([facility]) [address] [facility], [place], [address], 09/30/2024 16:13:13 09/24/19 25 09/24/2024 CBC WITH DIFFE RENTI AL/PL ATELE T hematology comments: LITIGATION LEGAL ASSISTANT Not Available [facility] ([facility]) [address] [facility], [place], [address], 09/30/2024 16:13:13 09/24/19 25 09/24/2024 COMP. METAB OLIC PANEL (14) glucose 96 mg/dL 70-99 normal Not Available [facility] ([facility]) [address] [facility], [place], [address], 09/30/2024 16:13:14 09/24/19 25 09/24/2024 COMP. METAB OLIC PANEL (14) BUN 37 mg/dL 6-24 above high normal Not Available [facility] ([facility]) [address] [facility], [place], [address], 09/30/2024 16:13:14 09/24/19 25 09/24/2024 COMP. METAB OLIC PANEL (14) creatinine 2.58 mg/dL 0.57-1 .00 above high normal Not Available [facility] ([facility]) [address] [place], [address], 09/30/2024 16:13:14 09/24/19 25 09/24/2024 COMP. METAB OLIC PANEL (14) eGFR 22 mL/mi n/1.7 3 >59 below low normal Not Available [facility] ([facility]) [address] [place], [address], 09/30/2024 16:13:14 09/24/19 25 09/24/2024 COMP. METAB OLIC PANEL (14) BUN/creatini ne ratio 14 9-23 normal Not Available [facility] ([facility]) [address] [place], [address], 09/30/2024 16:13:14 09/24/19 25 09/24/2024 COMP. METAB OLIC PANEL (14) sodium 142 mmol/ L 134-14 4 normal Not Available [facility] ([facility]) [address] [place], [address], 09/30/2024 16:13:14 09/24/19 25 09/24/2024 COMP. METAB OLIC PANEL (14) potassium 4.7 mmol/ L 3.5-5. 2 normal Not Available [facility] ([facility]) [address] [place], [address], 09/30/2024 16:13:14 09/24/19 25 09/24/2024 COMP. METAB OLIC PANEL (14) chloride 105 mmol/ L 96-106 normal Not Available [facility] ([facility]) [address] [facility] [place], [address], 09/30/2024 16:13:14 09/24/19 25 09/24/2024 COMP. METAB OLIC PANEL (14) carbon dioxide, total 20 mmol/ L 20-29 normal Not Available [facility] ([facility]) [address] [place], [address], 09/30/2024 16:13:14 09/24/19 25 09/24/2024 COMP. METAB OLIC PANEL (14) calcium 10.0 mg/dL 8.7-10 .2 normal Not Available [facility] ([facility]) [address] [place], [address], 09/30/2024 16:13:14 09/24/19 25 09/24/2024 COMP. METAB OLIC PANEL (14) protein, total 7.3 g/dL 6.0-8. 5 normal Not Available [facility] ([facility]) [address] [place], [address], 09/30/2024 16:13:14 09/24/19 25 09/24/2024 COMP. METAB OLIC PANEL (14) albumin 4.5 g/dL 3.9-4. 9 normal Not Available [facility] ([facility]) [address] [place], [address], 09/30/2024 16:13:14 09/24/19 25 09/24/2024 COMP. METAB OLIC PANEL (14) globulin, total 2.8 g/dL 1.5-4. 5 Not Available [facility] ([facility]) [address] [place], [address], 09/30/2024 16:13:14 09/24/19 25 09/24/2024 COMP. METAB OLIC PANEL (14) bilirubin, total 0.2 mg/dL 0.0-1. 2 normal Not Available [facility] ([facility]) [address] [place], [address], 09/30/2024 16:13:14 09/24/19 25 09/24/2024 COMP. METAB OLIC PANEL (14) alkaline phosphatase 129 IU/L 44-121 above high normal Not Available [facility] ([facility]) [address] [place], [address], 09/30/2024 16:13:14 09/24/19 25 09/24/2024 COMP. METAB OLIC PANEL (14) AST (SGOT) 20 IU/L 0-40 normal Not Available [facility] ([facility]) [address] [place], [address], 09/30/2024 16:13:14 09/24/19 25 09/24/2024 COMP. METAB OLIC PANEL (14) ALT (SGPT) 12 IU/L 0-32 normal Not Available [facility] ([facility]) [address] [facility], [place], [address], 09/30/2024 16:13:14 09/24/19 25 09/30/2024 VITAM IN E vitamin E(alpha tocopherol) 16.1 mg/L 7.0-25 .1 Not Available [facility] ([facility]) [address] [place], [address], 09/30/2024 16:13:15 09/24/19 25 09/30/2024 VITAM IN [...] in E defic ient. Not Available [facility] ([facility]) [address] [facility], [place], [address], 09/30/2024 16:13:15 09/24/19 25 09/24/2024 FOLAT E (FOLI C ACID) , SERUM folate (folic acid), serum >20.0 NG/mL >3.0 A serum folat e valarie ntrat ion of less than 3.1 ng/mL is consi dered to repre sent clini kaden defic iency . Not Available [facility] ([facility]) [address] [place], [address], 09/30/2024 16:13:16 09/24/19 25 09/30/2024 VITAM IN [...] Drug Admin istra tion. Not Available [facility] ([facility]) [address] [facility], [place], [address], 09/30/2024 16:13:16 09/24/19 25 09/24/2024 VITAM IN [...] um and D. Won dominguez [place]: [facility] . 2. Hector varghese MF, Dick rivera [place], Evon off-F doyle i PINEDA, et al. Evalu ation , treat ment, and preve ntion of vitam in D defic iency : an Endoc rine Socie ty clini kaden pract ice guide line. JCEM. 2010; 96(7) :1911 -30. Not Available [facility] ([facility]) [address] [facility], [place], [address], 09/30/2024 16:13:17 09/24/19 25 09/29/2024 VITAM IN B1 (THIA MINE) , BLOOD vit. B1, whole blood 208.8 nmol/ L 66.5-2 00.0 above high normal Not Available [facility] ([facility]) [address] [facility], [place], [address], 09/30/2024 16:13:18 09/24/19 25 09/30/2024 METHY LMALO ENRIQUE ACID, SERUM methylmaloni c acid, serum 297 nmol/ L 0-378 Not Available [facility] ([facility]) [address] [facility], [place], [address], 09/30/2024 16:13:18 09/24/19 25 09/24/2024 PREAL BUMIN prealbumin 28 mg/dL 12-34 Not Available [facility] ([facility]) [address] [facility], [place], [address], 09/30/2024 16:13:20 Result Notes None recorded. Problems Name Problem SNOMED Code Status Onset Date Resolution Date Notes Provider Name and Address Organization Details Recorded Time Hypertensive disorder 94387260 Active 2022 LLOYD Ayala [address] , [place], [address] , [facility] - [facility] & [place] 3 09:07:45 Type 2 diabetes mellitus without complication 863896026 Active 2022 LLOYD Ayala [address] , [place], [address] , [place] - [facility] & [place] 3 13:27:25 Chronic kidney disease stage 4 742134719 Active 2022 LLOYD Ayala [address] , [place], [address] , [place] - [facility] & [place] 3 13:27:27 Cobalamin deficiency 703939436 Active 2023 LLOYD Ayala [address] , [place], [address] , [place] - [facility] & [place] 4 12:44:41 Intentional weight loss 913617616 Active 2023 LLOYD Ayala [address], [place], [address] , [place] - [facility] - [place] & [place] 4 12:44:50 Heartburn 58073811 Active 2023 LLOYD Ayala [address], [place], [address] , [place] - [facility] - [place] & [place] 4 14:30:21 Disorder of function of stomach 334297820 Active [address], [place], [address] , [place] - [facility] - [place] & [place] 5 08:50:42 Type 2 diabetes mellitus 60493274 Active [address], [place], [address] , [place] - [facility] - [place] & [place] 5 14:30:05 Cigarette smoker 71496679 Active 2024 LLOYD Ayala [address], [place], [address] , [place] - [facility] & [place] 5 14:15:30 Problem Notes None recorded. Procedures Surgical History Date Name Laterality Status Provider Name and Address Organization Details Recorded Time 03/10/20 23 laparoscopic sleeve gastrectomy completed Munira Giron [facility] & [place] 03/17/2023 08:41:08 04/27/19 00 Other completed Munira Giron [facility] - [place] & [place] 03/17/2023 08:26:12 04/27/18 98 Abdominal Surgery completed Munira Giron [facility] & [place] 03/17/2023 08:26:12 section completed Shaye LOVE - [facility] & [place] 07/21/2022 10:54:27 procedure on urinary bladder completed [address], [place], [address], [place] [facility] [place] 07/24/2022 12:04:13 incision and drainage completed LLOYD Ayala [address] [facility], [place], [address], [facility] & [place] 07/24/2022 12:04:42 Carpal tunnel surgery completed Adriana Montoya [facility] & [place] 03/04/2023 07:45:37 Cataract Surgery completed Libby Larios - [facility] & [place] 03/10/2024 14:17:50 Imaging Results None recorded. Procedure [...] Not Available Not Available Not Available lamotrigine 200 mg tablet TAKE 1 TABLET BY MOUTH 2 TIMES A DAY FOR MOOD active Not Available Not Available No t Available torsemide 20 mg tablet 04/14 completed [...] active Not Available Not Available Not Available azithromyci n 250 mg tablet TAKE 2 TABLETS BY MOUTH ON DAY 1, THEN TAKE 1 TABLET DAILY ON DAYS 2 THROUGH 5 active Not Available Not Available No t Available ofloxacin 0.3 % eye drops active Not Available Not Available Not Available nystatin 100,000 unit/gram topical ointment APPLY TO THE AFFECTED AREA(S) 2 TIMES A DAY active Not Available Not Available No t Available fluconazole 150 mg tablet 04/14 completed Not Available Not Available Not Available urea 40 % topical cream active Not Available Not Available Not Available senna 8.6 mg tablet TAKE 1 TABLET BY MOUTH ONCE A DAY NEEDED FOR CONSTIPAT ION active Not Available Not Available No t Available FreeStyle Lancets 28 gauge USE DIRECTED 4 TIMES A DAY active Not Available Not [...] completed Not Available Not Available Not Available benzonatate 100 mg capsule TAKE 1 CAPSULE BY MOUTH 3 TIMES A DAY NEEDED FOR cough active Not Available Not Available No t Available cephalexin 500 mg capsule TAKE 1 CAPSULE BY MOUTH 2 TIMES A DAY active Not Available Not Available No t Available pantoprazol e 40 mg tablet,jay yed [...] sulfate HFA 90 mcg/actuati on aerosol inhaler INHALE 1 PUFF BY MOUTH EVERY 4 HOURS NEEDED FOR SHORTNESS OF BREATH OR WHEEZING active Not Available Not Available No t Available losartan 50 mg-hydrochl orothiazide 12.5 mg tablet TAKE 1 TABLET BY MOUTH [...] completed Not Available Not Available Not Available insulin aspart (U-100) 100 unit/mL (3 mL) subcutaneou s pen INJECT SUBCUTANE OUSLY PER SLIDING SCALE MAX DOSE OF 20 UNITS PER DAY active Not Available Not Available No t Available nitrofurant oin monohydrate /macrocryst als 100 [...] completed Not Available Not Available Not Available varenicline tartrate 0.5 mg (11)-1 mg (42) tablets in a dose pack USE directed active Not Available Not Available No t Available BD Ultra-Fine Short Pen Needle 31 gauge x 5/16 USE DIRECTED active Not Available Not Available No t Available Advair HFA 45 mcg-21 mcg/actuati on aerosol inhaler INHALE 2 PUFFS BY MOUTH 2 TIMES A DAY active Not Available Not Available No t Available cholecalcif mendoaz (vitamin D3) 25 mcg (1,000 unit) tablet TAKE 1 TABLET BY MOUTH ONCE A DAY active Not Available Not Available No t Available FreeStyle Lite Strips USE DIRECTED 4 TIMES A DAY active Not Available Not Available No t Available Lantus Solostar U-100 Insulin 100 unit/mL (3 mL) subcutaneou s pen INJECT SUBCUTANE OUSLY 20 units daily plus titration advised (max daily DOSE of 50 units) active Not Available Not Available No t Available Lantus Solostar U-100 Insulin active Not Available Not Available Not Available diclofenac 1 % topical gel active Not Available Not Available Not Available Vitamin D3 50 mcg (2,000 unit) capsule TAKE ONE CAPSULE BY MOUTH ONCE A DAY FOR SUPPLEMEN T 09/23 completed Not Available Not Available Not Available lidocaine 5 % topical ointment 09/23 completed Not Available Not Available Not Available Linzess 290 mcg capsule TAKE 1 CAPSULE BY MOUTH EVERY MORNING 30 TO 60 MINUTES BEFORE BREAKFAST active Not Available Not Available No t Available Victoza 3-Adrian 0.6 mg/0.1 mL (18 mg/3 mL) subcutaneou s pen injector 03/04 completed Not Available Not Available Not Available Farxiga 10 mg tablet TAKE 1 TABLET BY MOUTH ONCE A DAY 09/23 completed Not Available Not Available Not Available guaifenesin ER 600 mg tablet, extended release 12 hr TAKE 1 TABLET BY MOUTH 2 TIMES A DAY active Not Available Not Available No t Available OneTouch Verio Flex Meter active Not [...] Not Available Not Available Not Available Dexcom G7 [employer]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 active Not Available Not Available No t Available Dexcom G7 Sensor device USE DIRECTED EVERY 10 DAYS active Not Available Not Available No t Available Ozempic 0.25 mg or 0.5 mg (2 mg/3 mL) subcutaneou s pen injector 09/17 completed Not Available Not Available Not Available Ultra-Fine Pen Needle 31 gauge x 3/16 USE DIRECTED UP TO 4 TIMES A DAY active Not Available Not Available No t Available Vitals Date Recorded Body height Body temperature Body mass index (BMI) Body weight Heart rate Systolic And Diastolic Provider Name and Address Organization Details Last Updated DateTime 4 165.1 cm 97.6 [degF] 29.8 kg/m2 72083.7 5 g 78 /min 167/95 mm[Hg] Abdulaziz RichardBreeBec pauline [place] - [facility] & [place] 4 13:41:27 Date Recorded Body height Body temperature Heart rate Body mass index (BMI) Body weight Systolic And Diastolic Provider Name and Address Organization Details Last Updated DateTime 5 165.1 cm 97.7 [degF] 71 /min 27 kg/m2 35688.6 8 g 151/91 mm[Hg] Makayla Bermudez [place] - [facility] & [place] 5 13:56:43 Date Recorded Body height Heart rate Body temperature Body mass index (BMI) Body weight Systolic And Diastolic Provider Name and Address Organization Details Last Updated DateTime 4 165.1 cm 68 /min 96.8 [degF] 27.8 kg/m2 77742.2 1 g 152/85 mm[Hg] Libby Whiting [place] - [facility] & [place] 4 14:59:07 Date Recorded Body height Heart rate Body temperature Body mass index (BMI) Body weight Systolic And Diastolic Provider Name and Address Organization Details Last Updated DateTime 4 165.1 cm 71 /min 98.2 [degF] 27.9 kg/m2 66190.7 2 g 188/94 mm[Hg] Libby Whiting [place] - [facility] & [place] 4 14:18:05 Social History Question Answer Notes LastModified by Organizat ion Details LastModified Time Tobacco Smoking Status Former Smoker 1yr nonsmoker LLOYD Ayala [address] , [place], [address], [facility] [place] 07/24/2022 12:03:15 Are You Blind Or Do You Have Difficulty Seeing? No [email or web address] Information not available 03/17/2023 When Did You Quit Smoking? 1-5yearssi ncelastcig arette 1 Yr [email or web address] Information not available 06/16/2023 What Was The Date Of Your Most Recent Tobacco Screening? 10/23/2022 [email or web address] Information not available 03/17/2023 Are You Passively Exposed To Smoke? Yes [email or web address] Information not available 03/17/2023 How Many Years Have You Smoked Tobacco? 30 Information not available 03/17/2023 Sex: Unknown Functional Status Question Answer Note LastModified by Organizat ion Details LastModified Time Do you use any illicit or recreational drugs? No [email or web address] Information not available 07/21/2022 What is your level of alcohol consumption? None [email or web address] Information not available 07/21/2022 Do you or have you ever used smokeless tobacco? [id number] [email or web address] Information n ot available 03/17/2023 What is your exercise level? None [email or web address] Information not available 03/17/2023 Mental Status Question Answer Note LastModified by Organization D etails LastModified Time Do you feel stressed (tense, restless, nervous, or anxious, or unable to sleep at night)? [id number] Information not available 03/17/2023 Family History Relationship Description Onset Age of this Age Resolved Age Notes LastModified by Organization Details LastModified Time Father Obesity [email or web address] Not availa ble 07/21/2022 10:52:55 Father Diabetes mellitus [email or web address] Not available 2023 12:24:14 Father Cerebrovascu lar accident Not available 07/21/2022 10:53:27 Mother Obesity [email or web address] Not availa ble 07/21/2022 10:52:56 Mother Diabetes mellitus [email or web address] Not available 2023 12:24:14 Mother Hypertensive disorder [email or web address] Not available 10:53:14 Mother Cerebrovascu lar accident [email or web address] Not available 07/21/2022 10:53:27 Medical History Condition Response Anxiety Disorder Y Diabetes Y Obesity Y Other Y Back Problems Y Hypertension Y Kidney or Bladder Problems Y COPD Y Kidney Disease Y Gynecological HistoryNo gynecological history recorded. Obstetrics History GPAL:G 0 P 0 0 0 0 Immunizations Vaccine Type Date Status Note Provider Kurtis parsons and Address Organization Details Recorded Time influenza, unspecified formulation 03/05/2023 completed Libby Whiting null, [place] - [facility] - [place] & [place] 04/14/2023 11:08:17 influenza, unspecified formulation 02/23/2024 completed Libby Whiting null, [place] - [facility] - [place] & [place] 03/10/2024 14:17:28 Past Encounters Encounter ID Performer Location Encounter Start Date Encounter Closed Date Diagnosis/Indication Diagnosis SNOMED-CT Code Diagnosis ICD10 Code Diagnosis IMO Codes Diagnosis Note [id number] LLOYD Ayala [facility] [address] [facility] [address] [place] [address] 07/24/2022 08:11:43 07/24/2022 13:11:17 Obesity 892142700 E66.9 The patient will be scheduled for [...] testing has been completed Hypertensive disorder 38 516876 I10 Chronic ki dney disease stage 4 029370637 N18.4 we will ask patient for nephrologi st support statement including max protein advisement Type 2 asim betes mellitus without complication 735016995 E11.9 Tobacco user 437085936 Z 72.0 Discussion at length today regarding [...] requiremen t explained. Patient voices understand ing [id number] MARIAN KESSLER BS, RDN, LD [facility] [address] [facility] [address] [place] [address] 08/22/2022 13:18:29 08/22/2022 14:52:53 Chronic kidney disease stage 4 991295146 N18.4 Patient says she will eventually need a kidney transplant but must lose weight to qualify Obesity 091435066 E66.9 Prescribin g supervised diet to monitor patient compliance with diet and exercise, intentions of WLS in the future [id number] MARIAN KESSLER BS, RDN, LD [facility] [address] [facility] [address] [place] [address] 09/18/2022 13:41:02 09/18/2022 16:08:46 Hypertensive disorder 99413098 I10 HTN is a comorbidit y of morbid obesity and further indicates pt as a fit for WLS. Chronic ki dney disease stage 4 722762418 N18.4 Patient says she will eventually need a kidney transplant but must lose weight to qualify. Type 2 asim betes mellitus without complication 863195001 E11.9 T2DM is a comorbidit y of morbid obesity and further indicates pt as a fit for WLS. Obesity 620185204 E66.9 Prescribin g supervised diet to monitor patient compliance with diet and exercise, intentions of WLS in the future [id number] MARIAN KESSLER BS, RDN, LD [facility] [address] [facility] [address] [place] [address] 10/24/2022 12:56:12 10/24/2022 13:12:02 Chronic kidney disease stage 4 330192353 N18.4 Patient says she will eventually need a kidney transplant but must lose weight to qualify. Hypertensive disorder 38 666966 I10 HTN is a comorbidit y of morbid obesity and further indicates pt as a fit for WLS. Type 2 asim betes mellitus without complication 140389166 E11.9 T2DM is a comorbidit y of morbid obesity and further indicates pt as a fit for WLS. Obesity 221525394 E66.9 Prescribin g supervised diet to monitor patient compliance with diet and exercise, intentions of WLS in the future [id number] Phil Mars DO [facility] n [facility] [address] [facility] [address] [place] [address] 03/04/2023 07:18:08 03/04/2023 13:25:31 Morbid obesity 087284351 E66.01 Pre-surger y evaluation 183994138 Z01.818 Postoperative pain 87833 9007 G89.18 Chronic ki dney disease stage 4 513958914 N18.4 Type 2 asim betes mellitus without complication 352496285 E11.9 Hypertensive disorder 38 314367 I10 [id number] LOLYD Ayala [facility] n [facility] [address] [facility] [address] [place] [address] 03/17/2023 08:07:05 03/17/2023 10:16:18 History of gastrectomy 797268870 Z90.3 Type 2 asim betes mellitus without complication 590497817 E11.9 Patient advised to continue to monitor blood sugars and discuss management with PCP/endocr inologist. Chronic ki dney disease stage 4 225719672 N18.4 Patient is to see her nephrologi st today. We will give patient an order for BMP Mag and phosphorus and she can have done with any labs required from nephrologi st. Hypertensive disorder 38 577922 I10 [id number] LLOYD Ayala [facility] n [facility] [address] [facility] [address] [place] [address] 04/14/2023 10:56:55 04/14/2023 11:25:02 Hypertensive disorder 53767293 I10 Chronic ki dney disease stage [address] has limited her to 1.5 liter of fluid daily Type 2 asim betes mellitus without complication 227483153 E11.9 Patient advised to continue to monitor blood sugars and discuss management with PCP/endocr inologist. History of gastrectomy 493463143 Z90.3 Long discussion regarding expected p.o. tolerance. [...] any vitamin deficienci es. At [facility] risk of nutritional deficit 463305739 Z91.89 [id number] MAYRA ANTONIO RDN, LD [facility] [address] [facility] [address] [place] [address] 04/14/2023 11:29:35 04/15/2023 10:11:28 History of bariatric surgical procedure 307776302 Z98.84 Discussed lifestyle modificati ons for optimal weight loss and nutrition Inadequate intake of energy 232419875 E46 Increase kcal to 800 kcal/day. Provided coupon for protein supplement that will assist with this. Advised to drink 1/2 since they contain 30 g protein/se rving and this is already 1/2 of her protein needs for the day. Chronic ki dney disease stage 4 757452336 N18.4 Recommends 60 g protein/da y (0.6 g/kg bw)Continu e with 50 oz fluid/day per nephrologi stWill defer to nephrologi st for modificati ons with vitamin regime [id number] LLOYD Ayala [facility] [address] [facility] [address] [place] [address] 06/16/2023 12:17:59 06/16/2023 14:20:30 Hypertensive disorder 21842302 I10 Borderline blood pressure in office today. Patient is to follow up with PCP. She states she has an appointmen t with her PCP tomorrow. Type 2 asim betes mellitus without complication 843334199 E11.9 Improvemen t status post weight loss. Patient is now off of insulin. We are checking A1c. Patient advised to continue to monitor blood sugars and discuss management with PCP/endocr inologist. Chronic ki dney disease stage [address] has limited her to 1.5 liter of fluid daily Intentiona l weight loss 196599695 R63.8 Patient is doing very well status post sleeve gastrectom y. Encouraged patient to continue focus on high-prote in diet. Encouraged continued exercise. We will have patient follow up in 3 months. History of gastrectomy 223069125 Z90.3 Advised qid intake 50% protein 900-1000 [...] any vitamin deficienci es. Cobalamin deficiency 190 154038 E53.8 Patient is to continue vitamin supplement ation. We are rechecking bariatric lab panel today Serum ferr itin above reference range 877362920 R77.8 We are rechecking bariatric lab panel today [id number] LLOYD Ayala [facility] [address] [facility] [address] [place] [address] 09/18/2023 13:24:17 09/18/2023 14:19:05 Chronic kidney disease stage [address] has limited her to 1.5 liter of fluid dailyPatie nt is seeing improvemen t of CKD since weight loss surgery. Encouraged patient to continue to follow with her kidney doctors. Type 2 asim betes mellitus without complication 773391672 E11.9 Improvemen t status post weight loss. Patient advised to continue to monitor blood sugars and discuss management with PCP/endocr inologist. Hypertensive disorder 38 747673 I10 Borderline blood pressure in office today. Patient is to follow up with PCP. Cobalamin deficiency 190 853412 E53.8 Patient is to continue vitamin supplement ation. We are rechecking bariatric lab panel today Intentiona l weight loss 361387311 R63.8 Patient is doing very well status post sleeve gastrectom y. Encouraged patient to continue focus on high-prote in diet. Encouraged continued exercise. We will have patient follow up in 3 months. History of gastrectomy 576958010 Z90.3 Advised qid intake 50% protein 1100 [...] any vitamin deficienci es. At [facility] risk of nutritional deficit 265932629 Z91.89 [id number] MAYRA ANTONIO RDN, LD [facility] [address] [facility] [address] [place] [address] 09/18/2023 14:17:35 09/18/2023 15:04:08 Obesity 275627212 E66.9 1000 kcal/day60 g protein/da y Chronic ki dney disease stage 4 418967526 N18.4 improving statusReco mmends 60-70 g protein/da y (0.6 g/kg bw)Continu e with 50 oz fluid/day per nephrologi stMartin defer to nephrologi st for modificati ons with vitamin regimeOk to do a few fries 1x/month as long as protein and kcal goals are met History of bariatric surgical procedure 097652457 Z98.84 Discussed lifestyle modificati ons for optimal weight loss and nutrition [id number] LLOYD Ayala [facility] [address] [facility] [address] [place] [address] 12/21/2023 14:45:22 12/21/2023 15:23:45 Hypertensive disorder 66221914 I10 Elevated blood pressure in office today. Patient is to follow up with PCP. Type 2 asim betes mellitus without complication 666876513 E11.9 Improvemen t status post weight loss. Patient advised to continue to monitor blood sugars and discuss management with PCP/endocr inologist. Cobalamin deficiency 190 869789 E53.8 Patient is to continue vitamin supplement ation. We are rechecking bariatric lab panel. Patient states she will have panel drawn next week when she is seen by PCP Chronic ki dney disease stage [address] has limited her to 1.5 liter of fluid dailyPatie nt is seeing improvemen t of CKD since weight loss surgery. Encouraged patient to continue to follow with her kidney doctors. Intentiona l weight loss 113953376 R63.8 Patient is doing very well status post sleeve gastrectom y. Encouraged patient to continue focus on high-prote in diet. Encouraged continued exercise. We will have patient follow up in 3 months. History of gastrectomy 976245499 Z90.3 Advised qid intake 50% protein 12-1300 [...] contacted to correct any vitamin deficienci es. [id number] LLOYD Ayala [facility] [address] [facility] [address] [place] [address] 03/10/2024 14:09:25 03/10/2024 14:52:45 Type 2 diabetes mellitus without complication 309712352 E11.9 Improvemen t status post weight loss.Patie nt advised to continue to monitor blood sugars and discuss management with PCP/endocr inologist. Chronic ki dney disease stage [address] has limited her to 1.5 liter of fluid dailyPatie nt is seeing improvemen t of CKD since weight loss surgery.En couraged patient to continue to follow with her kidney doctors. Hypertensive disorder 38 238879 I10 Elevated blood pressure in office today. Patient is to follow up with PCP. Heartburn 26281302 R12 We will restart patient on omeprazole once daily. Patient may also take famotidine as needed. She is to report any worsening reflux symptoms Intentiona l weight loss 602931767 R63.8 Patient is doing very well status post sleeve gastrectom y. Encouraged patient to continue focus on high-prote in diet.Patie nt is to meet with dietitian today for typical 12 month postop dietary supportEnc ouraged continued exercise. We will have patient follow up in 3 months. History of gastrectomy 056314349 Z90.3 Advised qid intake 50% protein 1000 [...] any vitamin deficienci es. At [facility] risk of nutritional deficit 856924016 Z91.89 Cobalamin deficiency 190 743568 E53.8 Patient is to continue vitamin supplement ation. We are rechecking bariatric lab panel. Patient states she will have panel drawn next week when she is seen by PCP [id number] JAYME GUZMAN RD [facility] [address] [facility] [address] [place] [address] 03/10/2024 14:39:35 03/10/2024 15:07:26 Dietary management surveillance 070601430 Z71.3 [id number] LLOYD Ayala [facility] [address] [facility] [address] [place] [address] 09/23/2024 13:35:41 09/23/2024 14:27:13 Hypertensive disorder 47348680 I10 Elevated blood pressure in office today. Patient is to follow up with PCP. Type 2 asim betjenna mellitus 86615264 E11.22 [id number] Patient recently restarted on LantusPati ent advised to continue to monitor blood sugars and discuss management with PCP/endocr inologist. Chronic ki dney disease stage [address]18[address] has limited her to 1.5 liter of fluid dailyPatie nt is seeing improvemen t of CKD since weight loss surgery.En couraged patient to continue to follow with her kidney doctors. Cobalamin deficiency 190 987646 E53.8 Patient is to continue vitamin supplement ation. We are rechecking bariatric lab panel. We will contact patient to continue to manage deficiency Intentiona l weight loss 060821283 R63.8 Patient is doing very well status post sleeve gastrectom y. Encouraged patient to refocus on bariatric basics. Advised she track carbs calories and protein. Suggested 4 small meals daily. Advised 1000 calories daily and 80 g of protein dailyPatie nt is to meet with dietitian todayEncou raged continued exercise. We will have patient follow up in 3 months. History of gastrectomy 240668887 Z90.3 Advised qid intake 50% protein 1000 [...] any vitamin deficienci es. At [facility] risk of nutritional deficit 038560334 Z91.89 Heartburn 01273662 R12 We will have patient continue omeprazole 20 mg q.a.m. and famotidine 20 mg q.h.s.. She is to report any breakthrou gh reflux issues on this current regimen. Follow up 3 months Cigarette smoker 6062570 7 F17.210 [id number] Discussion at length today regarding the risks [...] Member ID Hernandez Member ID Guarantor Name 01/06/2025 1 [facility] (MEDICAID HMO) Melanie Mayo [id number] Melanie Healy Notes Date Note Type Note Provider Name and Address Organization Details Recorded Time 09/18/2023 text/html ROS as noted in the HPI Patient presents for 6mth Post-Op Check s/p [...] insulin. No DM . Patient states her bi tri operator is happy with her kidney disease. He [...] meal intake. Reports 60/dy protein intake. Her bi tri operator has limited her to 1.5 liter of [...] have run 110. 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 She is appointment with her bi tri operator later today.Patient is doing well. Taking recommended vitamins and PPI.Pt Denies : abdominal pain, prandial issues Nausea, Vomiting, bowel or bladder issuesPath benignPt is happy with their quality of life after Weight loss Surgery. LLOYD Ayala [address], [place], [address], [facility] - [place] - [place] & [place] 09/18/2023 14:18:45 09/18/2023 text/html A: NONI met w/ pt for f/up s/p sleeve 03-10-23. Pt weight at MD Consult: 256.9#Current Weight: 179.2#Total Weight Change: -77.7# Inbody Reveals:BMR = 1387 kcalChange in SMM = +0.7#Change in PBF = -6.6% Notes on weight: desires to continue weight loss at this time Signs/SymptomsN/V/C/ D: Denies Pertinent Labs/Meds/Vitamin regimen: Bariatric MVI, D3. Noted CKDIV - bi tri operator limited pt to 1.5 L/day (50 oz). [...] eating out occasionally. MAYRA ANTONIO RDN, LD [address] [facility], [place], [address], [place] - [place] - [place] & [place] 09/18/2023 15:05:58 12/21/2023 text/html ROS as noted in the HPI Patient presents for 9mth Post-Op Check s/p LSG 03/10/23Patient presents the office today for routine follow-up status post bariatric surgery. Patient doing well. Reports q.i.d. small meal intake. Reports >70g/dy protein intake and good hydration. Calories - not tracking Walking for exercise.Taking routine vitamins as advised. Hx of vit E B12 deficiency past ferritin elevationPMH HTN DM [id number]/gastro esophageal reflux: controlled on famotidinePt Denies : [...] insulin. No DM . Patient states her bi tri operator is happy with her kidney disease. He [...] meal intake. Reports 60/dy protein intake. Her bi tri operator has limited her to 1.5 liter of [...] have run 110. 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 She is appointment with her bi tri operator later today.Patient is doing well. Taking recommended vitamins and PPI.Pt Denies : abdominal pain, prandial issues Nausea, Vomiting, bowel or bladder issuesPath benignPt is happy with their quality of life after Weight loss Surgery. LLOYD Ayala [address], [place], [address], [facility] - NT - [place] & [place] 12/21/2023 15:22:52 03/10/2024 text/html ROS as noted in the HPI Patient presents for 12mth Post-Op Check s/p [...] B12 deficiency past ferritin elevationPMH HTN DM [id number]/gastro esophageal reflux: controlled on famotidinePt Denies : [...] insulin. No DM . Patient states her bi tri operator is happy with her kidney disease. He [...] meal intake. Reports 60/dy protein intake. Her bi tri operator has limited her to 1.5 liter of [...] have run 110. 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 She is appointment with her bi tri operator later today.Patient is doing well. Taking recommended vitamins and PPI.Pt Denies : abdominal pain, prandial issues Nausea, Vomiting, bowel or bladder issuesPath benignPt is happy with their quality of life after Weight loss Surgery. LLOYD Ayala [address] [facility], [place], [address], [facility] & [place] 03/10/2024 14:51:27 03/10/2024 text/html RDN met w/ pt for annual f/up s/p sleeve. Pt weight at [...] 22 Est. daily fluid intake: 42 oz (Child Support Agent wants patient at 40 oz.) Meal Frequency/Pattern: 3x/day - tries not to snack Drinks: bubly, zero gatorade (mostly after walking), sugar free tea and water Foods Not Tolerated: none Additional notes/concerns: JAYME GUZMAN RD [address] [facility], [place], [address], [facility] & [place] 03/10/2024 15:07:08 09/23/2024 text/html ROS as noted in the HPI Patient presents for 18mth Post-Op Check s/p [...] quality of life after Weight loss Surgery. @[facility] Feb 2024 OV -- Patient doing well. [...] life after Weight loss Surgery. LLOYD Ayala [address], [place], [address], [facility] - [place] - [place] & [place] 09/23/2024 14:30:45 OBGyn Episode No OBEpisode recorded.
--- OUTSIDE RECORDS SUMMARY | 2025-02-16 15:52 | XMS_ITS | Encounter Summary ---
Author Organization [facility] Address [address] [id number] Care Team Providers Care Camera Storage Clerk Name Role Phone Lynda Spencer MD Unavailable [phone] Dyllan Gil APRN Primary Care Provider [phone] Reason for Visit * Reason Onset Date Comments HCN - Patient Message 01/27/2025 Encounter Details Date Type Department Care Team ([facility] st Contact Info) Description 01/27/2025 Telephone [facility] Nephrology, Bone & Mineral Metabolism [address] [facility], [address] [place] [address] Lynda Spencer MD [address] [place] [address] HCN - Patient Message Social History Tobacco Use Types Packs/Day Years [...] encounter Miscellaneous Notes * Telephone Encounter - Katie Morris - 01/30/2025 4:15 PM EDT Printed lab orders, will have them put in the mail. * Telephone Encounter - Janette Acevedo - 01/27/2025 11:33 AM EDT Clinical Concern/Question Reason for Call: pt would like her lab orders mail to her. Address verified. Best contact number: [phone] (home) Optimal time of day to reach caller: ANYTIME Additional comments/information from caller: None Note: Please do not reply to this message. Follow-up communication and further actions as a result of this message need to be communicated with the patient directly, if the patient is not active onMyChart. If the patient is active on MyChart, they will receive notification of the communication/outcome via [employer]. documented in this encounter Plan of Treatment Upcoming Encounters Date Type Department Care Team (Late st Contact Info) Description 02/22/2025 1:00 PM EDT Office Visit [facility] Nephrology, Bone & Mineral Metabolism [address] [facility], [address] [place] [address] Lynda Spencer MD [address] [place] [address] 03/01/2025 10:00 AM EST Office Visit [facility] [address] [place] [address] Munira Keen MD [address] [facility] [address] [place] [address] 03/07/2025 1:40 PM EST [facility] [address] [place] [address] Makayla Bahena, APURVA [address] [facility] [address] [place] [address] documented as of this encounter Visit Diagnoses Not on filedocumented in this encounter Additional Health Concerns Assessment Noted Time A fall risk assessment has been complete d for the patient 11/16/2024 1:21 PM EDT A Body Mass Index follow-up plan has been documented for the patient 11/17/2024 2:03 PM EDT documented as of this encounter Care Teams Camera Storage Clerk Relationship Specialty Start Date End Date Dyllan Gil APRN [address] [place] [address] PCP - General 06/11/22 Lynda Spencer MD [address] [facility] [address] [place] [address] Referring Physician Nephrology 06/09/22 documented as of this encounter
--- OUTSIDE RECORDS SUMMARY | 2025-02-16 15:52 | XMS_ITS | Clinical Summary ---
Author Organization [facility] Address [address] 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 90 tablet 08/18/19 25 026 Active atorvastatin (Lipitor) 20 MG tablet TAKE ONE TABLET BY MOUTH ONCE A DAY 90 tablet 08/31/19 25 Active Continuous Glucose Sensor (Dexcom G7 Sensor) misc 1 each every 10 days. 9 each 11/09/19 25 026 Active Continuous Glucose Staff Interpreter (Dexcom G7 Staff Interpreter) device 1 each daily. Use as directed [...] Use 1-4x/day 360 each 11/09/19 25 Active Varenicline Tartrate, Starter, 0.5 MG X 11 & 1 MG X 42 tablet therapy pack See administration instructions. Active Active Problems Problem Noted Date Diagnosed Date Medication refill 11/08/2024 Cigarette smoker 09/23/2024 Abnormal gait 07/20/2024 Seasonal allergic rhinitis 07/20/2024 Vertigo 07/20/2024 Hypertensive heart and chron ic kidney disease with heart failure and stage 1 through stage 4 chronic kidney disease, or unspecified chronic kidney disease 07/18/2024 Abnormal electrocardiogram (ECG) (EKG) Visual discomfort, unspecified 04/25/2024 Presence of intraocular lens 04/04/2024 Heartburn 03/10/2024 Combined forms of age-related cataract, right ey e 03/08/2024 Other visual disturbances 02/16/2024 Candidiasis of skin and nail 12/08/2023 Intracardiac [...] of 33.0 to 33.9 in adult 06/24/2023 Candidal intertrigo 04/30/2023 Cervical radicular pain 04/30/2023 COPD (chronic obstructive pulmonary disease) 07/2023 Daytime somnolence 04/30/2023 Depressed bipolar disorder 04/30/2023 Diastolic dysfunction 04/30/2023 Dyspnea 04/30/2023 Shortness of breath 04/30/2023 Gastroesophageal reflux disease 04/30/2023 Gastroparesis diabeticorum 04/30/2023 Hidradenitis suppurativa 04/30/2023 Indigestion 04/30/2023 Acute uremia 04/30/2023 Keratosis 04/30/2023 Loud snoring 04/30/2023 Lymphedema 04/30/2023 Memory loss 04/30/2023 Muscle spasm 04/30/2023 Neck pain 04/30/2023 Obesity (BMI 30-39.9) 04/30/2023 Osteoarthritis 04/30/2023 Callus of foot 04/30/2023 Cellulitis of left leg 04/30/2023 Diabetic foot 04/30/2023 Furuncle of left lower extremity 04/30/2023 Incurved toenail 04/30/2023 Pre-ulcerative calluses 04/30/2023 Proliferative diabetic retinopathy 04/30/2023 Stress incontinence 04/30/2023 Subungual hematoma of fifth toe of left foot 07/2023 Subungual hematoma of great toe of left foot 07/2023 HTN (hypertension) 04/30/2023 CKD (chronic kidney disease) 04/30/2023 Renal insufficiency 04/30/2023 Stage 3 chronic kidney disease 04/30/2023 Stage 4 chronic kidney disease 04/30/2023 Stage 5 chronic kidney disease 04/30/2023 Type 2 diabetes mellitus 04/30/2023 Abrasion, right lower leg, initial encounter 07/2023 Back pain 04/30/2023 Greater trochanteric bursitis of both [...] 15-29 ml/min 08/30/2020 Proteinuria 04/22/2020 Hyperkalemia 01/05/2020 Resolved Problems Problem Noted Date Diagnosed Date Resolved Date UTI (urinary tract infection), uncomplicated 01/15/2025 Overweight 12/23/2023 01/15/2025 Leg swelling 04/30/2023 01/15/2025 Edema of lower extremity 04/30/2023 Nausea and vomiting 04/30/2023 01/16/20 25 Onychomycosis 04/30/2023 01/15/2025 Shoulder pain, left 04/30/2023 01/16/20 25 Acute hypoxic respiratory failure 04/30/2023 01/15/2025 Bilateral hip pain 04/30/2023 Chest pain 04/30/2023 01/15/2025 Encounters Date Type Department Care Team Description 02/16/2025 [facility] Nephrology, Bone & Mineral Metabolism [address] [place] [address] Lynda Spencer MD 02/01/2025 3:00 PM EDT Ancillary Procedure [facility] [address] [place] [address] 02/01/2025 2:15 PM EDT Office Visit [facility] [address] [place] [address] Munira Keen MD 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 type 2 diabetes mellitus (Primary Dx); Vitreous hemorrhage of left eye (CMS/HCC); Diabetic cataract; Pseudophakia of right eye 02/01/2025 Travel 01/27/2025 [facility] Nephrology, Bone & Mineral Metabolism [address] [place] [address] Lynda Spencer MD HCN - Patient Message 12/07/2024 [facility] [place] [address] Makayla Bahena APRN 12/01/2024 [facility] [address] [place] [address] Makayla Bahena APRN 11/16/2024 1:20 PM EDT Office Visit [facility] Nephrology, Bone & Mineral Metabolism [address], [address] [place] [address] Lynda Spencer MD CKD (chronic kidney disease) stage 4, GFR 15-29 ml/min (CMS/HCC) (Primary Dx) 11/16/2024 Telephone [facility] Ruthie S Meron HERNAN[address] [place] [address] Nikki Ross RN 11/16/2024 Travel from Last 3 Months Immunizations Immunization [...] Description 02/22/2025 1:00 PM EDT Office Visit [facility] Nephrology, Bone & Mineral Metabolism [address] [facility], [address] [place] [address] Lynda Spencer MD [address] [place] [address] 03/01/2025 10:00 AM EST Office Visit [facility] [address] [place] [address] Munira Keen MD [address] [facility] [address] [place] [address] 03/07/2025 1:40 PM EST Office Visit [facility] Endocrinology [address] [place] [address] Makayla Bahena S, WOOL SHEARER [address] [facility] [address] [place] [address] Health Maintenance Due Date Last [...] 2019 FIT 2019 FOBT 2019 Sigmoidoscopy 2019 Lung Cancer Screening Shared Decision Making 2024 [facility]-Lung Cancer Screening 2024 [facility]-Zoster Vaccines (1 of 2) 2024 [facility]-Breast Cancer Screening 07/21/2024 07/21/2022 [facility]-Diabetes: Hemoglobin A1C 10/10/2024, 11/15/2023, 06/24/2023, Additional history exists [id number] Vaccine (2 - season) 2024 07/31/2020 [facility]-Influenza Vaccine (#1) 12/26/202402/22, 03/05/2023, 03/05/2023, Additional history exists [facility]-Depression Screening 07/11/2025 07/11/2024 Colonoscopy 05/03/2031 05/03/2021 [facility]-Colorectal Cancer Screening 05/03/2031 [facility]-HIV Screening Completed 07/11/2024, , 07/13/2023, Additional history exists [facility]-Hepatitis C Screening Completed 2024, 10/21/2023, 07/13/2023, Additional history exists [facility]-Obesity Intervention Completed 025, 11/16/2024, 11/08/2024, Additional history exists HPV Vaccines Aged [...] 12:43 PM EDT End stage renal disease ([facility]/HCC) MAMMOGRAPHY BREAST DIAGNOSTIC TOMOSYNTHESIS BILATERAL Routine 07/21/2022 CYTO DATA CONVERSION Routine 03/01/2001 12:00 AM EST from Last 3 Months or Most Recently Relevant to Health Maintenance Results * OCT, Retina - OU - [...] 2 Antibody/Antigen Screen (07/11/2024 12:43 PM EDT) HIV 1 & 2 Antibody/Antigen Screen Non Reactive Non Reactive 07/11/2024 2:13 PM EDT [facility] Comment:Screening for HIV 1 & 2 antibodies, and P24 antigen is NONREACTIVE. No confirmatory testing is required. Blood Venous blood specimen / Unknown Venipuncture / Unknown 07/11/2024 12:43 PM EDT 07/11/2024 1:29 PM EDT us Stacey Escamilla MD LAB BLOOD ORDERABLES Final Resul t Performing Organization Address City/[facility]/ZIP Co de Phone Number [facility] [address] [place] [address] * Hepatitis C Antibody (07/11/2024 12:43 PM EDT) Hepatitis C Antibody Negative Negative 07/11/2024 2:11 PM EDT [facility] Blood Venous blood specimen / Unknown Venipuncture / Unknown 07/11/2024 12:43 PM EDT 07/11/2024 1:29 PM EDT us Stacey Escamilla MD LAB BLOOD ORDERABLES Final Resul t Performing Organization Address City/[facility]/ZIP Co de Phone Number [facility] [address] [place] [address] * (ABNORMAL) Hemoglobin A1c (07/11/2024 12:43 PM EDT) Pathologist [facility] Hemoglobin A1c 7.9(H) <5.7 % 07/11/2024 1:43 PM EDT [facility] Blood Venous blood specimen / Unknown Venipuncture / Unknown 07/11/2024 12:43 PM EDT 07/11/2024 1:22 PM EDT Narrative [facility] - 07/11/2024 1:43 PM EDT HA1C Interpretive Data: Diagnosis of Diabetes: Diabetic > or = 6.5% Pre-diabetic 5.7 to 6.4% Non-diabetic < or = 5.6% Glycemic Targets for Type I and Type II Diabetics: Non- Adults <7.0% Adults <6.0% Children and Adolescents <7.5% Source: [place] [employer]. Standards of medical care in diabetes,2017. Diabetes Care.2017:40 (suppl 1):S1-S135. HbA1c assay performed by an ion-exchange chromatography method that is certified traceable to the DCCT. Stacey Escamilla MD LAB BLOOD ORDERABLES Final Resul t [facility] [address] [place] [address] * Mammography Breast Diagnostic Tomosynthesis Bilateral (07/21/2022) Anatomical Region Laterality Modality Breast Bilateral Mammography us Historical Provider IMG BI PROCEDURES Final Resu lt * Cytology (03/01/2001 12:00 AM EST) 03/01/2001 03/02/2001 12: 20 PM EST Narrative [facility] - 03/09/2001 11:24 AM EST [facility] MR #: [id number] [facility] KARYNA PANMary Jane [place], [place] [address] 1975 (Age: 25) FW Collect Date: 03/01/2001 00:00 Receipt Date: 03/02/2001 12:20 Page 1 DEPARTMENT OF PATHOLOGY AND LABORATORY MEDICINE CYTOPATHOLOGY REPORT Email: [email or web address] ATTENDING MD/Practitioner: Ricky Cardoso MD Service: CWO Location: [facility] OTHER MD(S): Chace Muhammad MD Reported: 03/09/2001 11:24 Collected: 03/01/2001 00:00 INTERPRETATION THIN PREP (CERVICAL/VAGINAL): NEGATIVE FOR INTRAEPITHELIAL LESION OR MALIGNANCY. SATISFACTORY FOR EVALUATION; ENDOCERVICAL/ TRANSFORMATION ZONE COMPONENT PRESENT. Electronically Signed Out By FRANCISCO JAVIER De Anda (ASCP) L.A. Engraving Plate Maker, CT (ASCP) Cervical cytology is a screening test [...] results is suggested (please call Microbiology at [phone] for results). CLINICAL INFORMATION: Menstrual History: Date of Last Menstrual Period: {Not Provided} SPECIMEN DESCRIPTION: A: THIN PREP (CERVICAL/VAGINAL) THIN PREP PROCESS CELLULAR ENHANCEMENT ICD: V76.2 CERVIX, SPECIAL SCREENING FOR MALIGNANT NEOPLASM F: A; THIN SCRN [id number] SNOMED CODES: A; [id number] In cases where a pathologist has signed out the report, the service has been rendered in part by a resident. The signing pathologist has performed and is responsible for the reported pathologic evaluation. Historical Provider LAB PATHOLOGY ORDERABLES Fin al Result [facility] from Last 3 Months or Most Recently Relevant to Health Maintenance Insurance [employer] [place] [id number] [facility] [place] [address] [facility] MEDICAID Care Teams Pan Pusher Relationship Specialty Start Date End Date Dyllan Gil APRN [address] [place], [place] [id number] PCP - General 06/11/22 Lynda Spencer MD [address] [place] [address] Referring Physician Nephrology 06/09/22
--- OUTSIDE RECORDS SUMMARY | 2025-02-16 15:52 | XMS_ITS | Encounter Summary ---
Author Organization Healthcare Address [address] [place] [address] Care Team Providers Care Balloon Maker Name Role Phone Lynda Spencer MD Unavailable [phone] Dyllan Gil APRN Primary Care Provider [phone] Encounter Details Date Type Department Care Team (Latest Contact Info) Description 02/01/2025 Travel Social History Tobacco Use Types Packs/Day [...] Description 02/22/2025 1:00 PM EDT Office Visit [facility] Nephrology, Bone & Mineral Metabolism [address], [address] [place] [address] Lynda Spencer MD [address] [place] [address] 03/01/2025 10:00 AM EST Office Visit [facility] [address] [place] [address] Munira Keen MD [address] [facility] [address] [place] [address] 03/07/2025 1:40 PM EST Office Visit [facility] Endocrinology [address] [place] [address] Makayla Bahena APRN [address] [facility] [address] [place] [address] documented as of this encounter Visit Diagnoses Not on filedocumented in this encounter Additional Health Concerns Assessment Noted Time A fall risk assessment has been complete d for the patient 11/16/2024 1:21 PM EDT A Body Mass Index follow-up plan has been documented for the patient 02/01/2025 3:06 PM EDT documented as of this encounter Care Teams Balloon Maker Relationship Specialty Start Date End Date Dyllan Gil APRN [address] [place] [address] PCP - General 06/11/22 Lynda Spencer MD [address] [place] [address] Referring Physician Nephrology 06/09/22 documented as of this encounter
--- OUTSIDE RECORDS SUMMARY | 2025-02-16 15:52 | XMS_ITS | Encounter Summary ---
Author Organization [facility] Address [address] [place] [address] Care Team Providers Care Bookstore Manager Name Role Phone Lynda Spencer MD Unavailable [phone] Dyllan Gil APRN Primary Care Provider [phone] Encounter Details Date Type Department Care Team (Late st Contact Info) Description 12/07/2024 Telephone [facility] Endocrinology [address] [place] [address] Makayla Bahena APRN [address] [facility] [address] [place] [address] Social History Tobacco Use Types [...] encounter Miscellaneous Notes * Telephone Encounter - Janette Acevedo - 12/16/2024 2:25 PM EDT Status Update Call #1 1st call regarding the status of the initial request. Pt requested a sooner appt. to discuss this matter and there were no appts avail. Best contact number: [phone] (mobile) Optimal time of day to reach caller: ANYTIME Additional comments/information from caller: None Note: Please do not reply to this message. Follow-up communication and further actions as a result of this message need to be communicated with the patient directly, if the patient is not active onMyChart. If the patient is active on MyChart, they will receive notification of the communication/outcome via [employer]. * Telephone Encounter - Elise [place] RN - 12/14/2024 9:05 AM EDT Returned pt's call. No answer. Left message that insulins do have the potential to cause some wt gain, however, I will send message to provider and once I receive a response, I will call her back. * Telephone Encounter - BRANDO HORN - 12/13/2024 2:08 PM EDT Pt called back, her phone hasn't been working great, she is wanting to be changed to a diff med other than Lantus due to weight gain. * Telephone Encounter - Elise [place] RN - 12/12/2024 9:02 AM EDT Attempted again to call pt. No answer. Left detailed message that this was our 3rd attempt in calling her, and the first 2 times we were unable to leave VM. Advised that if she still need our assistance to please give us a call back. Provided callback number. * Telephone Encounter - Kami Perez - 12/09/2024 9:10 AM EDT Returned call. Mailbox too full, unable to leave message. * Telephone Encounter - Elise [place] RN - 12/08/2024 9:31 AM EDT Returned pt's call. No answer. Voicemail full, therefore, unable to leave message. * Telephone Encounter - BRANDO HORN - 12/07/2024 4:10 PM EDT Pt states Lantus is causing her to gain weight, she had weight loss surgery, lost 90 pounds and doesn't want to go back to where she started. documented in this encounter Plan of Treatment Upcoming Encounters Date Type Department Care Team (Late st Contact Info) Description 02/22/2025 1:00 PM EDT Office Visit [facility] Nephrology, Bone & Mineral Metabolism [address] [facility] [place] [address] Lynda Spencer MD [address] [facility] [address] [place] [address] 03/01/2025 10:00 AM EST Office Visit [facility] [address] [place] [address] Munira Keen MD 110 [facility] [address] [place] [address] 03/07/2025 1:40 PM EST [facility] [address] [place] [address] Makayla Bahena, APURVA [address] [facility] [address] [place] [address] documented as of this encounter Visit Diagnoses Not on filedocumented in this encounter Additional Health Concerns Assessment Noted Time A fall risk assessment has been complete d for the patient 11/16/2024 1:21 PM EDT A Body Mass Index follow-up plan has been documented for the patient 11/17/2024 2:03 PM EDT documented as of this encounter Care Teams Bookstore Manager Relationship Specialty Start Date End Date Dyllan Gil APRN [address] [place] [address] PCP - General 06/11/22 Lynda Spencer MD [address] [facility] [address] [place] [address] Referring Physician Nephrology 06/09/22 documented as of this encounter
[2025-02-16 16:10] LABS: Bilirubin,Urine Negative (Negative); Color,Urine YELLOW (Yellow); Glucose,Urine (UA) Negative (Negative); Ketones,Urine Negative (Negative); Leukocyte Esterase,Urine Negative (Negative); PH,Urine 5.5 (5.0-8.5); Protein,Urine 3+ (Negative); Specific Gravity, Urine 1.025 (1.005-1.030); Urobilinogen,Urine 0.2 EU/dl (0.2)
[2025-02-16 16:12] LABS: Hematocrit 39.2 % (37.0-47.0); Hemoglobin 12.4 g/dL (12.2-16.2); Mean Corpuscular HGB Conc 31.6 g/dL (31.8-35.4); Mean Corpuscular Hemoglobin 29.8 pg (27.0-31.2); Mean Corpuscular Volume 94.2 fl (81-99); Nucleated Red Blood Cells % 0 %; Platelet Count 197 K/mm3 (142-424); Red Blood Count 4.16 M/mm3 (4.20-5.40); Red Cell Distribution Width-SD 44.6 fL; White Blood Count 8.1 K/mm3 (4.8-10.8)
[2025-02-16 18:12] LABS: Bacteria,Urine 3+ /lpf; Squamous Epithelial Cell,Urine 20-50 #/hpf (0-5)
== END 2025-02-16 23:59 | disposition home or self-care (01) ==
LOC: LAB 15:47
PROVIDERS: PCP Family Medicine; Visit Provider Internal Medicine Nephrology
DX: N18.4 Chronic kidney disease, stage 4 (severe) (principal)
CPT/HCPCS: 36415; 81001; 82570; 84156; 85027; 87086